=== PATIENT | male | born 1965 | race Caucasian/White ===

== ENCOUNTER 2022-10-24 11:04 | Outpatient (OUT) | payer BC, SELFPAY ==
[2022-10-24 12:09] LABS: Basophils Percent Auto 0.2 % (0.2-2.0); Eosinophils Absolute Auto 0.1 10^3/uL (0.0-0.7); Eosinophils Percent Auto 1.6 % (0.9-7.0); Hematocrit 43.5 % (42.0-54.0); Hemoglobin 14.6 g/dL (14.0-18.0); Immature Granulocytes Abs Auto 0.01 10^3/uL (0.00-0.03); Immature Granulocytes Pct Auto 0.2 % (0.0-0.5); Lymphocytes Absolute Auto 1.1 10^3/uL (1.2-3.8); Lymphocytes Percent Auto 18.2 % (20.5-60.0); Mean Corpuscular HGB Conc 33.6 g/dL (29.9-35.2); Mean Corpuscular Hemoglobin 26.9 pg (25.9-34.0); Mean Corpuscular Volume 80.1 fL (80.0-94.0); Mean Platelet Volume 11.4 fL (9.5-13.5); Monocytes Absolute Auto 0.4 10^3/uL (0.3-0.8); Monocytes Percent Auto 7.1 % (1.7-12.0); Neutrophils Absolute Auto 4.4 10^3/uL (1.4-6.5); Neutrophils Percent Auto 72.7 % (43.0-75.0); Platelet Count 139 10^3/uL (150-450); Red Blood Count 5.43 10^6/uL (4.70-6.10); Red Cell Distribution Width 13.5 % (11.0-15.0); White Blood Count 6.1 10^3/uL (4.0-11.0)
[2022-10-24 12:20] LABS: Alanine Aminotransferase 30 U/L (16-63); Albumin Globulin Ratio 0.9; Albumin Level 3.5 g/dL (3.4-5.0); Alkaline Phosphatase 98 U/L (46-116); Anion Gap 12.8; Aspartate Amino Transferase 28 U/L (15-37); BUN Creatinine Ratio 18.4; Bilirubin Total 0.4 mg/dL (0.2-1.0); Calcium 9.3 mg/dL (8.5-10.1); Carbon Dioxide 26.8 mmol/L (21.0-32.0); Chloride 105 mmol/L (98-107); Chol HDL Ratio 8.1; Cholesterol 243 mg/dL (<=200); Estimated GFR (African America >60 (>=60); Estimated GFR (Non-African Ame 59 (>=60); Glucose 254 mg/dL (74-106); HDL Cholesterol 30 mg/dL (40-60); Potassium 4.6 mmol/L (3.5-5.1); Sodium 140 mmol/L (136-145); Total Protein 7.5 g/dL (6.4-8.2); Triglycerides 204 mg/dL (<=150); VLDL CHOLESTEROL 40.8 mg/dL
== END 2022-10-24 11:05 | disposition home or self-care (01) ==
PROVIDERS: PCP Family Medicine; Visit Provider Nurse Practitioner
DX: I50.22 Chronic systolic (congestive) heart failure (principal)
CPT/HCPCS: 36415; 80053; 80061; 85025

== ENCOUNTER 2022-11-07 08:47 | Outpatient (OUT) | payer BC, SELFPAY ==
--- NOTE | 2022-11-07 11:03 | CA_ITS ---
Patient: LEIDA HOU Exam Date: 11/07/2022 : 1965 Gender:M Ordering : PERLA KABA Admission #: [id number] Family : Order #: [id number] CLICK HERE TO VIEW EXAM ECHOCARDIOGRAM REPORT PROCEDURE: CA ECHO DOPPLER COMPLETE INDICATIONS: Chronic systolic heart failure, CAD COMPARISON: None. DESCRIPTION: COMPLETE ECHOCARDIOGRAM Real-time transthoracic echocardiography with 2D, M-mode, spectral and color flow Doppler performed. QUALITY: Technical quality was good. LEFT VENTRICLE: Mild dilatation. Mild concentric left ventricular hypertrophy. Global left ventricular systolic function is moderately to severely reduced. There is global hypokinesis with regional variability and severe hypokinesis of the septum and mid and distal anterior segments. LV EF: Visual estimation of left ventricular ejection fraction is 30% DIASTOLIC: ATRIAL SEPTUM: LEFT ATRIUM: Moderate dilatation. RIGHT ATRIUM: Mild dilatation. RIGHT VENTRICLE: Normal in size. Normal right ventricular systolic function. Pacer wire present TRICUSPID VALVE: Normal mobility and thickness. No stenosis with trivial regurgitation. No evidence of pulmonary hypertension. RVSP 33 mmHg MITRAL VALVE: Normal mobility and thickness. Mild mitral valve stenosis. No mitral regurgitation. Mitral valve ring repair is well seated in the mitral position. Mean diastolic gradient is 4.7 mmHg at a heart rate of 77 bpm. AORTIC VALVE: Normal trileaflet appearance. No visible sclerosis. Normal leaflet mobility. No evidence of aortic valve stenosis. No aortic regurgitation. AORTIC ROOT: Mildly dilated, measuring 4.1cm. The ascending aorta is normal in size measuring 2.9 cm. PULMONIC VALVE: Normal thickness and mobility. No stenosis. Trivial regurgitation. PERICARDIUM: No evidence of pericardial effusion. IVC: Collapses with inspirations. Normal size. PLEURA: CONCLUSION: 1. Left ventricular systolic function is moderately to severely reduced with segmental wall motion abnormalities. LVEF is estimated at 30%. 2. Normal right ventricular size and systolic function. 3. Mitral valve is status post ring repair with no regurgitation and mild stenosis. 4. Normal right-sided pressures. 5. Mildly dilated aortic root measuring 4.1 cm. Adult Echocardiography Procedure Report Left Ventricle LVEDD (3.7 - 5.6 cm): 6.33 cm LVESD (2.2 - 4.0 cm): 5.08 cm LVIVS thickness (0.6 - 1.2 cm): 1.20 cm LVPW thickness (0.5 - 1.0 cm): 1.22 cm e': 0.07 m/s E - e': 17.82 LVOT Max Gradient: 2.81 mm[Hg] LVOT Area (cm2): 0.84 m/s Peak Velocity (LVOT): 0.84 m/s Mean Velocity (LVOT): 0.53 m/s LVOT Diameter 2.39 cm Left Ventricular Ejection Fraction: 30 % Left Atrium LA Volume Index (2D A2C): 48.56 ml/m2 Left Atrium Systolic Dimension: 4.37 cm Mitral Valve MV E to A Ratio: 0.97 Mitral Valve A-Wave Peak Velocity: 1.36 m/s Mitral Valve E-Wave Peak Velocity: 1.32 m/s Right Ventricle RV Internal Diastolic Dimension: 4.05 cm Aorta AO Root Diam: 4.11 cm Ascending Ao Diam: 2.91 cm Aortic Valve AoV Area (Peak Martín): 3.44 cm2, 3.44 cm2 AoV Area (VTI): 3.31 cm2, 3.31 cm2 Peak Velocity(Antegrade Flow): 1.09 m/s Peak Gradient(Antegrade Flow): 4.74 mm[Hg] Mean Velocity(Antegrade Flow): 0.78 m/s Mean Gradient(Antegrade Flow): 2.76 mm[Hg] Velocity Time Integral: 26.03 cm Tricuspid Valve Peak Velocity (Regurgitant Flow): 2.72 m/s, 2.15 m/s Pulmonic Valve Mean Gradient: 2.04 mm[Hg], 1.87 mm[Hg], 2.56 mm[Hg] Mean Velocity: 0.66 m/s, 0.64 m/s, 0.75 m/s Peak Velocity: 0.98 m/s Peak Gradient: 3.88 mm[Hg], 3.50 mm[Hg], 4.20 mm[Hg] Right Atrium Right Atrium Systolic Pressure: 68.94 ml, 68.94 ml Dictated by: Sheldon Fleming M.D. on 11/07/2022 at 18:05 Approved by: Sheldon Fleming M.D. on 11/07/2022 at 18:12
== END 2022-11-07 08:48 | disposition home or self-care (01) ==
LOC: CARD 08:48
PROVIDERS: PCP Family Medicine; Visit Provider Nurse Practitioner
DX: I50.22 Chronic systolic (congestive) heart failure (principal); I25.810 Atherosclerosis of coronary artery bypass graft(s) without angina pectoris
CPT/HCPCS: 93306

== ENCOUNTER 2023-11-25 07:00 | Outpatient (OUT) | payer BC, SELFPAY ==
[2023-11-25 07:44] LABS: Anion Gap 12.3; BUN Creatinine Ratio 17.2; Calcium 9.5 mg/dL (8.5-10.1); Carbon Dioxide 26.2 mmol/L (21.0-32.0); Chloride 102 mmol/L (98-107); Chol HDL Ratio 5.3; Cholesterol 181 mg/dL (<=200); Estimated GFR (African America >60 (>=60 mL/min/1.73m^2); Estimated GFR (Non-African Ame 54 (>=60 mL/min/1.73m^2); Glucose 380 mg/dL (74-106); HDL Cholesterol 34 mg/dL (40-60); Potassium 4.5 mmol/L (3.5-5.1); Sodium 136 mmol/L (136-145); Triglycerides 299 mg/dL (<=150); VLDL CHOLESTEROL 59.8 mg/dL
== END 2023-11-25 07:01 | disposition home or self-care (01) ==
LOC: LAB 07:02
PROVIDERS: PCP Family Medicine; Visit Provider Nurse Practitioner Family
DX: I50.22 Chronic systolic (congestive) heart failure (principal); E78.2 Mixed hyperlipidemia
CPT/HCPCS: 36415; 80048; 80061

== ENCOUNTER 2023-12-30 13:01 | Outpatient (OUT) | payer BC, SELFPAY ==
--- NOTE | 2023-12-30 | VEIN_ITS ---
The [address] [address] Patient Name: LEIDA HOU MRN: [id number] date: 1965 Sex: M Assigned Patient Location: Current Patient Location: Accession/Order Number: [id number] Exam Date: 12/30/2023 13:05 Report Date: 12/31/2023 07:02 At the request of: MARY GRACE ROSADO Procedure: VC SEGMENTAL PRESSURES EXAM: VC SEGMENTAL PRESSURES. HISTORY: PAD I73.9. COMPARISON: None. TECHNIQUE: Resting ABIs and segmental limb pressures were obtained. FINDINGS: Resting ABIs are abnormally elevated due to vascular rigidity. Waveforms appear monophasic bilaterally. A pressure gradient was noted from the brachial cuff to the upper thigh cuff and from the upper thigh cuff to the lower thigh cuff on the left. This may represent iliac disease and superficial femoral artery disease. Pressure gradient was seen on the right from the upper thigh cuff to the brachial cuff suggesting iliac disease. Recommend CTA for further evaluation. VEIN/VC SEGMENTAL PRESSURES IMPRESSION: Nondiagnostic ABIs and segmental pressures. Recommend CTA. Possible iliac disease bilaterally and left superficial femoral artery disease. Electronically authenticated by: Chester CHRISTENSEN Date: 12/31/2023 07:02
== END 2023-12-30 13:02 | disposition home or self-care (01) ==
LOC: VC 13:01
PROVIDERS: PCP Family Medicine; Visit Provider Podiatrist Foot & Ankle Surgery
DX: E11.51 Type 2 diabetes mellitus with diabetic peripheral angiopathy without gangrene (principal)
CPT/HCPCS: 93923

== ENCOUNTER 2023-12-30 13:58 | Outpatient (OUT) | payer BC, SELFPAY ==
--- NOTE | 2023-12-30 14:10 | CT_ITS ---
The [address] [address] Patient Name: LEIDA HOU MRN: [id number] date: 1965 Sex: M Assigned Patient Location: [facility] Current Patient Location: [facility] Accession/Order Number: [id number] Exam Date: 12/30/2023 14:19 Report Date: 01/02/2024 08:47 At the request of: MARY GRACE ROSADO Procedure: CT foot LT wo con CT scan left foot and ankle without contrast 12/30/2023. HISTORY: The patient reportedly has a history of diabetes and cut the left great toe 2 weeks ago. Infection of the left great toe. COMPARISON: None. TECHNIQUE: Multiple contiguous axial CT images of the left foot and ankle were obtained without contrast. Sagittal and coronal reformatted images were made. Dose reduction techniques were achieved by using automated exposure control and/or adjustment of mA and/or kV according to patient size and/or use of iterative reconstruction technique. FINDINGS: There are extensive atherosclerotic vascular calcifications seen. There are calcaneal enthesophytes. There is a type II accessory navicular bone. There are mild degenerative changes of the talonavicular joint. There is an enthesophyte of the base of the fifth metatarsal. There is a hallux valgus deformity. There are mild degenerative changes of the first MTP joint. There appears to be a small soft tissue ulcer along the plantar aspect of the distal first toe with adjacent soft tissue swelling. There are also multiple small bubbles of gas within the underlying subcutaneous fat plantar to the first distal phalanx in this region. However, no erosive change of the first toe is seen. No periosteal reaction. CT/CT foot LT wo con IMPRESSION: 1. There appears to be a small soft tissue ulcer along the plantar aspect of the distal first toe with adjacent soft tissue swelling which may be due to a cellulitis, but this is nonspecific. There are also multiple small bubbles of gas within the underlying subcutaneous fat in this region which may be due to an infection by a gas-forming organism. 2. No CT evidence of osteomyelitis is seen of the first toe. However, please note that MRI is more sensitive for the detection of osteomyelitis than CT. 3. There are other degenerative changes as described above. 4. Atherosclerotic vascular disease. Electronically authenticated by: DONTA BUCKLEY Date: 01/02/2024 08:47
== END 2023-12-30 13:59 | disposition home or self-care (01) ==
LOC: RAD 14:01
PROVIDERS: PCP Family Medicine; Visit Provider Podiatrist Foot & Ankle Surgery
DX: E11.51 Type 2 diabetes mellitus with diabetic peripheral angiopathy without gangrene (principal); E11.69 Type 2 diabetes mellitus with other specified complication; E11.49 Type 2 diabetes mellitus with other diabetic neurological complication; M86.172 Other acute osteomyelitis, left ankle and foot
CPT/HCPCS: 73700; 93923

== ENCOUNTER 2024-10-31 11:57 | Outpatient (OUT) | payer BC, SELFPAY ==
--- OUTSIDE RECORDS SUMMARY | 2024-10-31 11:59 | XMS_ITS | Encounter Summary ---
Author Organization [facility] Address [address] [place] [facility] [place] [address] Care Team Providers Care Signal Intelligence Analyst Name Role Phone Gladis Gibson MD Primary Care Provider [phone] Gladis Gibson MD Unavailable Encounter Details Date Type Department Care Team (Late st Contact Info) Description 02/15/2024 Abstract [facility] [address] [place] [id number] Yonatan Arshad, DPM FACFAS [address] [place] [address] Social History Tobacco Use Types Packs/Day Years Used Date Smoking Tobacco: Never Smokeless Tobacco: Current Chew Alcohol Use Standard Drinks/Week Comments Not Currently 0 (1 standard drink = 0.6 oz pur e alcohol) Sex and Gender Information Value Date Recorded Sex Assigned at Not on file Legal Sex Male 7:30 PM EDT Gender Identity Not on file Sexual Orientation Not on file documented as of this encounter Plan of Treatment Not on file documented as of this encounter Visit Diagnoses Not on filedocumented in this encounter Care Teams Signal Intelligence Analyst Relationship Specialty Start Date End Date Gladis Gibson MD [address] [facility] [address] [place], [place] [id number] PCP - General Family Medicine 09/22/22 Gladis Gibson MD [address] [facility] [address] [place], [place] [id number] PCP - [place] 06/23/24 documented as of this encounter
--- OUTSIDE RECORDS SUMMARY | 2024-10-31 11:59 | XMS_ITS | Encounter Summary ---
Author Organization [facility] Address [address] [place] [address] Care Team Providers Care Transport Pilot Name Role Phone Gladis Phoenix MD Unavailable Gladis Phoenix MD Primary Care Provider [phone] Gladis Phoenix MD Unavailable Encounter Details Date Type Department Care Team (Late st Contact Info) Description 12/31/2023 Clinisync Result Encounter [facility] External Department Unsolicited Provider, Generic External Data Social History Tobacco Use Types Packs/Day Years [...] on file documented as of this encounter Procedures Procedure Name Priority Date/Time Associated Diagnosis Comments SEGMENTAL BLOOD PRESSURE 12/31/2023 7:02 AM EST documented in this encounter Results * SEGMENTAL BLOOD PRESSURE (12/31/2023 7:02 AM EST) Anatomical Region Laterality Modality Radiographic Allison ging 12/31/2023 7:02 AM EST Narrative 12/31/2023 7:04 AM EST The [address] [address] Vein Report Signed Patient: LEIDA CERRATO MR#: [id number] : 1965 Acct:[id number] Age/Sex: 58 / M ADM Date: 12/30/23 Loc: VC Attending Dr: MARY GRACE ROSADO M.D. Ordering Physician: MARY GRACE ROSADO M.D. Date of Service: 12/30/23 Procedure(s): VC SEGMENTAL PRESSURES Accession Number(s): [id number] cc: GLADIS PHOENIX ; MARY GRACE ROSADO M.D. The [place] [id number] Patient Name: LEIDA CERRATO MRN: [facility]:[id number] date: 1965 Sex: M Assigned Patient Location: Current Patient Location: Accession/Order Number: [id number] Exam Date: 12/30/2023 13:05 Report Date: 12/31/2023 07:02 At the request of: MARY GRACE ROSADO Procedure: VC SEGMENTAL PRESSURES EXAM: VC SEGMENTAL PRESSURES. HISTORY: PAD I73.9. COMPARISON: None. TECHNIQUE: Resting ABIs and segmental limb pressures were obtained. FINDINGS: Resting ABIs are abnormally elevated due to vascular rigidity. Waveforms appear monophasic bilaterally. A pressure gradient was noted from the brachial cuff to the upper thigh cuff and from the upper thigh cuff to the lower thigh cuff on the left. This may represent iliac disease and superficial femoral artery disease. Pressure gradient was seen on the right from the upper thigh cuff to the brachial cuff suggesting iliac disease. Recommend CTA for further evaluation. VEIN/VC SEGMENTAL PRESSURES IMPRESSION: Nondiagnostic ABIs and segmental pressures. Recommend CTA. Possible iliac disease bilaterally and left superficial femoral artery disease. Electronically authenticated by: Chester LINO Date: 12/31/2023 07:02 Dictated By: Chester Lino M.D. Signed By: 12/31/23703 DD/ 1 TD/TT: Finish Mill Operator: Procedure Note Radiology, Radiologist, MD - 12/31/2023 [place] [address] Vein Report Signed Patient: LEIDA CERRATO RMR#: [id number] : 1965Acct:[id number] Age/Sex: 58 / MADM Date: 12/30/23 Loc: VC Attending Dr: MARY GRACE ROSADO M.D. Ordering Physician: MARY GRACE ROSADO M.D. Date of Service: 12/30/23 Procedure(s): VC SEGMENTAL PRESSURES Accession Number(s): [id number] cc: GLADIS PHOENIX ; MARY GRACE ROSADO M.D. [place] [address] Patient Name: LEIDA CERRATO MRN: [id number] date: 1965 Sex: M Assigned Patient Location: Current Patient Location: Accession/Order Number: [id number] Exam Date: 12/30/2023 13:05 Report Date: 12/31/2023 07:02 At the request of: MARY GRACE ROSADO Procedure: VC SEGMENTAL PRESSURES EXAM: VC SEGMENTAL PRESSURES. HISTORY: PAD I73.9. COMPARISON: None. TECHNIQUE: Resting ABIs and segmental limb pressures were obtained. FINDINGS: Resting ABIs are abnormally elevated due to vascular rigidity. Waveforms appear monophasic bilaterally. A pressure gradient was notedfrom the brachial cuff to the upper thigh cuff and from the upper thigh cuff to the lower thigh cuff on the left. This may represent iliac disease andsuperficial femoral artery disease. Pressure gradient was seen on the right from theupper thigh cuff to the brachial cuff suggesting iliac disease. Recommend CTAfor further evaluation. VEIN/VC SEGMENTAL PRESSURES IMPRESSION: Nondiagnostic ABIs and segmental pressures. Recommend CTA. Possible iliac disease bilaterally and left superficial femoral artery disease. Electronically authenticated by: Chester LINO Date: 12/31/2023 07:02 Dictated By: Chester Lino M.D. Signed By:12/31/23703 DD/ 1 TD/TT: Finish Mill Operator: us Generic External Data Provider IMG XR PROCEDURES Final Result documented in this encounter Visit Diagnoses Not on filedocumented in this encounter Care Teams Transport Pilot Relationship Specialty Start Date End Date Gladis Phoenix MD [address] [place] [address] PCP - [place] [employer] 06/23/2101/22 Gladis Phoenix MD [address] [facility] [address] [place] [address] PCP - General Family Medicine 09/22/22 Gladis Phoenix MD [address] [facility] [address] [place] [address] PCP - [place] [employer] 06/23/24 documented as of this encounter
--- OUTSIDE RECORDS SUMMARY | 2024-10-31 11:59 | XMS_ITS | Encounter Summary ---
Author Organization [facility] Address [address] [facility] [place] [address] Care Team Providers Care Yard Loader Operator Name Role Phone Gladis Gibson MD Primary Care Provider [phone] Gladis Gibson MD Unavailable Encounter Details Date Type Department Care Team (Late st Contact Info) Description 01/27/2024 Abstract [facility] [address] [facility] [address] [place] [phone] Gladis Gibson MD [address] [facility] [address] [place] [address] Social History Tobacco Use Types Packs/Day Years [...] on filedocumented in this encounter Care Teams Yard Loader Operator Relationship Specialty Start Date End Date Gladis Gibson MD [address] [facility] [address] [place] [address] PCP - General Family Medicine 09/22/22 Gladis Gibson MD [address] [facility] [address] [place] [address] PCP - [place] [employer] 06/23/24 documented as of this encounter
--- OUTSIDE RECORDS SUMMARY | 2024-10-31 11:59 | XMS_ITS | Encounter Summary ---
Author Organization [facility] Address [address] [facility] [place] [address] Care Team Providers Care Senior Designer/Art Director Name Role Phone Gladis Gibson MD Primary Care Provider [phone] Gladis Gibson MD Unavailable Encounter Details Date Type Department Care Team (Late st Contact Info) Description 09/21/2024 Abstract [facility] [place] [facility] [address] [facility] [address] [place] [address] Gladis Gibson MD [address] [facility] [address] [place], [place] [phone] Social History Tobacco Use Types Packs/Day Years Used Date Smoking Tobacco: Never Smokeless Tobacco: Current Chew Alcohol Use Standard Drinks/Week Comments Not Currently 0 (1 standard drink = 0.6 oz pur e alcohol) PHQ-2 Answer Date Recorded Patient Health Questionnaire-2 Score 0 05/16/2024 Sex and Gender Information Value Date Recorded Sex Assigned at Not on file Legal Sex Male 7:30 PM EDT Gender Identity Not on file Sexual Orientation Not on file documented as of this encounter Plan of Treatment Not on file documented as of this encounter Visit Diagnoses Not on filedocumented in this encounter Care Teams Senior Designer/Art Director Relationship Specialty Start Date End Date Gladis Gibson MD [address] [facility] [address] [place] [address] PCP - General Family Medicine 09/22/22 Gladis Gibson MD [address] [facility] [address] [place] [address] PCP - [place] [employer] 06/23/24 documented as of this encounter
--- OUTSIDE RECORDS SUMMARY | 2024-10-31 11:59 | XMS_ITS | Encounter Summary ---
Author Organization [facility] Address [address] [place] [address] Care Team Providers Care Delivery Specialist Name Role Phone Gladis Gibson MD Unavailable Gladis Gibson MD Primary Care Provider [phone] Gladis Gibson MD Unavailable Encounter Details Date Type Department Care Team (Late st Contact Info) Description 11/07/2022 Clinisync Result Encounter [facility] External Department Unsolicited [...] Procedure Name Priority Date/Time Associated Diagnosis Comments CA ECHO DOPPLER COMPLETE 11/07/2022 6:12 PM EDT documented in this encounter Results * CA ECHO DOPPLER COMPLETE (11/07/2022 6:12 PM EDT) Anatomical Region Laterality Modality Other 11/07/2022 6:12 PM EDT Narrative 11/07/2022 6:12 PM EDT The [address] [address] Cardiology Report Signed Patient: LEIDA CERRATO MR#: [id number] : 1965 Acct:[id number] Age/Sex: 57 / M ADM Date: 11/07/22 Loc: CARD Attending Dr: PERLA KABA Ordering Physician: PERLA KABA Date of Service: 11/07/22 Procedure(s): CA echo doppler complete Accession Number(s): [id number] cc: Patient: LEIDA CERRATO Exam Date: 11/07/2022 : 1965 Gender:M Ordering : PERLA KABA Admission #: [id number] Family : Order #: [id number] CLICK HERE TO VIEW EXAM ECHOCARDIOGRAM REPORT PROCEDURE: CA ECHO DOPPLER COMPLETE INDICATIONS: Chronic systolic heart failure, CAD COMPARISON: None. DESCRIPTION: COMPLETE ECHOCARDIOGRAM Real-time transthoracic echocardiography with 2D, M-mode, spectral and color flow Doppler performed. QUALITY: Technical quality was good. LEFT VENTRICLE: Mild dilatation. Mild concentric left ventricular hypertrophy. Global left ventricular systolic function is moderately to severely reduced. There is global hypokinesis with regional variability and severe hypokinesis of the septum and mid and distal anterior segments. LV EF: Visual estimation of left ventricular ejection fraction is 30% DIASTOLIC: ATRIAL SEPTUM: LEFT ATRIUM: Moderate dilatation. RIGHT ATRIUM: Mild dilatation. RIGHT VENTRICLE: Normal in size. Normal right ventricular systolic function. Pacer wire present TRICUSPID VALVE: Normal mobility and thickness. No stenosis with trivial regurgitation. No evidence of pulmonary hypertension. RVSP 33 mmHg MITRAL VALVE: Normal mobility and thickness. Mild mitral valve stenosis. No mitral regurgitation. Mitral valve ring repair is well seated in the mitral position. Mean diastolic gradient is 4.7 mmHg at a heart rate of 77 bpm. AORTIC VALVE: Normal trileaflet appearance. No visible sclerosis. Normal leaflet mobility. No evidence of aortic valve stenosis. No aortic regurgitation. AORTIC ROOT: Mildly dilated, measuring 4.1cm. The ascending aorta is normal in size measuring 2.9 cm. PULMONIC VALVE: Normal thickness and mobility. No stenosis. Trivial regurgitation. PERICARDIUM: No evidence of pericardial effusion. IVC: Collapses with inspirations. Normal size. PLEURA: CONCLUSION: 1. Left ventricular systolic function is moderately to severely reduced with segmental wall motion abnormalities. LVEF is estimated at 30%. 2. Normal right ventricular size and systolic function. 3. Mitral valve is status post ring repair with no regurgitation and mild stenosis. 4. Normal right-sided pressures. 5. Mildly dilated aortic root measuring 4.1 cm. Adult Echocardiography Procedure Report Left Ventricle LVEDD (3.7 - 5.6 cm): 6.33 cm LVESD (2.2 - 4.0 cm): 5.08 cm LVIVS thickness (0.6 - 1.2 cm): 1.20 cm LVPW thickness (0.5 - 1.0 cm): 1.22 cm e': 0.07 m/s E - e': 17.82 LVOT Max Gradient: 2.81 mm[Hg] LVOT Area (cm2): 0.84 m/s Peak Velocity (LVOT): 0.84 m/s Mean Velocity (LVOT): 0.53 m/s LVOT Diameter 2.39 cm Left Ventricular Ejection Fraction: 30 % Left Atrium LA Volume Index (2D A2C): 48.56 ml/m2 Left Atrium Systolic Dimension: 4.37 cm Mitral Valve MV E to A Ratio: 0.97 Mitral Valve A-Wave Peak Velocity: 1.36 m/s Mitral Valve E-Wave Peak Velocity: 1.32 m/s Right Ventricle RV Internal Diastolic Dimension: 4.05 cm Aorta AO Root Diam: 4.11 cm Ascending Ao Diam: 2.91 cm Aortic Valve AoV Area (Peak Martín): 3.44 cm2, 3.44 cm2 AoV Area (VTI): 3.31 cm2, 3.31 cm2 Peak Velocity(Antegrade Flow): 1.09 m/s Peak Gradient(Antegrade Flow): 4.74 mm[Hg] Mean Velocity(Antegrade Flow): 0.78 m/s Mean Gradient(Antegrade Flow): 2.76 mm[Hg] Velocity Time Integral: 26.03 cm Tricuspid Valve Peak Velocity (Regurgitant Flow): 2.72 m/s, 2.15 m/s Pulmonic Valve Mean Gradient: 2.04 mm[Hg], 1.87 mm[Hg], 2.56 mm[Hg] Mean Velocity: 0.66 m/s, 0.64 m/s, 0.75 m/s Peak Velocity: 0.98 m/s Peak Gradient: 3.88 mm[Hg], 3.50 mm[Hg], 4.20 mm[Hg] Right Atrium Right Atrium Systolic Pressure: 68.94 ml, 68.94 ml Dictated by: Ashia Fleming M.D. on 11/07/2022 at 18:05 Approved by: Ashia Fleming M.D. on 11/07/2022 at 18:12 Dictated By: ASHIA FLEMING Signed By: 11/07/221811 DD/ 11 TD/TT: Sanforizing Machine Operator: Procedure Note Radiology, Radiologist, MD - 11/13/2022 [place] [address] Cardiology Report Signed Patient: LEIDA CERRATO RMR#: [id number] : 1965Acct:[id number] Age/Sex: 57 / MADM Date: 11/07/22 Loc: CARD Attending Dr: PERLA KABA Ordering Physician: PERLA KABA Date of Service: 11/07/22 Procedure(s): CA echo doppler complete Accession Number(s): [id number] cc: Patient: LEIDA CERRATO Exam Date: 11/07/2022 : 1965 Gender:M Ordering : PERLA KABA Admission #: [id number] Family : Order #: [id number] CLICK HERE TO VIEW EXAM ECHOCARDIOGRAM REPORT PROCEDURE: CA ECHO DOPPLER COMPLETE INDICATIONS: Chronic systolic heart failure, CAD COMPARISON: None. DESCRIPTION: COMPLETE ECHOCARDIOGRAM Real-time transthoracic echocardiography with 2D, M-mode, spectral and color flow Dopplerperformed. QUALITY: Technical quality was good. LEFT VENTRICLE: Mild dilatation. Mild concentric left ventricular hypertrophy. Global left ventricular systolic function is moderately to severely reduced. There is global hypokinesis with regional variabilityand severe hypokinesis of the septum and mid and distal anterior segments. LV EF: Visual estimation of left ventricular ejection fraction is 30% DIASTOLIC: ATRIAL SEPTUM: LEFT ATRIUM: Moderate dilatation. RIGHT ATRIUM: Mild dilatation. RIGHT VENTRICLE: Normal in size. Normal right ventricular systolic function. Pacer wire present TRICUSPID VALVE: Normal mobility and thickness. No stenosis with trivial regurgitation. No evidence of pulmonary hypertension. RVSP 33 mmHg MITRAL VALVE: Normal mobility and thickness. Mild mitral valvestenosis. No mitral regurgitation. Mitral valve ring repair is well seated in the mitral position. Mean diastolic gradient is 4.7 mmHg at a heart rate of77 bpm. AORTIC VALVE: Normal trileaflet appearance. No visible sclerosis.Normal leaflet mobility. No evidence of aortic valve stenosis. No aortic regurgitation. AORTIC ROOT: Mildly dilated, measuring 4.1cm. The ascending aorta is normal in size measuring 2.9 cm. PULMONIC VALVE: Normal thickness and mobility. No stenosis. Trivial regurgitation. PERICARDIUM: No evidence of pericardial effusion. IVC: Collapses with inspirations. Normal size. PLEURA: CONCLUSION: 1. Left ventricular systolic function is moderately to severely reducedwith segmental wall motion abnormalities. LVEF is estimated at 30%. 2. Normal right ventricular size and systolic function. 3. Mitral valve is status post ring repair with no regurgitation and mild stenosis. 4. Normal right-sided pressures. 5. Mildly dilated aortic root measuring 4.1 cm. Adult Echocardiography Procedure Report Left Ventricle LVEDD (3.7 - 5.6 cm): 6.33 cm LVESD (2.2 - 4.0 cm): 5.08 cm LVIVS thickness (0.6 - 1.2 cm): 1.20 cm LVPW thickness (0.5 - 1.0 cm): 1.22 cm e': 0.07 m/s E - e': 17.82 LVOT Max Gradient: 2.81 mm[Hg] LVOT Area (cm2): 0.84 m/s Peak Velocity (LVOT): 0.84 m/s Mean Velocity (LVOT): 0.53 m/s LVOT Diameter 2.39 cm Left Ventricular Ejection Fraction: 30 % Left Atrium LA Volume Index (2D A2C): 48.56 ml/m2 Left Atrium Systolic Dimension: 4.37 cm Mitral Valve MV E to A Ratio: 0.97 Mitral Valve A-Wave Peak Velocity: 1.36 m/s Mitral Valve E-Wave Peak Velocity: 1.32 m/s Right Ventricle RV Internal Diastolic Dimension: 4.05 cm Aorta AO Root Diam: 4.11 cm Ascending Ao Diam: 2.91 cm Aortic Valve AoV Area (Peak Martín): 3.44 cm2, 3.44 cm2 AoV Area (VTI): 3.31 cm2, 3.31 cm2 Peak Velocity(Antegrade Flow): 1.09 m/s Peak Gradient(Antegrade Flow): 4.74 mm[Hg] Mean Velocity(Antegrade Flow): 0.78 m/s Mean Gradient(Antegrade Flow): 2.76 mm[Hg] Velocity Time Integral: 26.03 cm Tricuspid Valve Peak Velocity (Regurgitant Flow): 2.72 m/s, 2.15 m/s Pulmonic Valve Mean Gradient: 2.04 mm[Hg], 1.87 mm[Hg], 2.56 mm[Hg] Mean Velocity: 0.66 m/s, 0.64 m/s, 0.75 m/s Peak Velocity: 0.98 m/s Peak Gradient: 3.88 mm[Hg], 3.50 mm[Hg], 4.20 mm[Hg] Right Atrium Right Atrium Systolic Pressure: 68.94 ml, 68.94 ml Dictated by: Ashia Fleming M.D. on 11/07/2022 at 18:05 Approved by: Ashia Fleming M.D. on 11/07/2022 at 18:12 Dictated By: ASHIA FLEMING Signed By:11/07/221811 DD/ 11 TD/TT: Sanforizing Machine Operator: Generic External Data Provider [facility] Final Result documented in this encounter Visit Diagnoses Not on filedocumented in this encounter Care Teams Delivery Specialist Relationship Specialty Start Date End Date Gladis Gibson MD [address] [place] [address] [place] [address] PCP - [facility] [employer] 06/23/2101/22 Gladis Gibson MD [address] [facility] [address] [place] [address] PCP - General Family Medicine 09/22/22 Gladis Gibson MD [address] [facility] [address] [place] [address] PCP - [facility] [employer] 06/23/24 documented as of this encounter
--- OUTSIDE RECORDS SUMMARY | 2024-10-31 11:59 | XMS_ITS | Encounter Summary ---
Author Organization [facility] Address [address] [facility] [place] [address] Care Team Providers Care Process Manager Name Role Phone Gladis Gibson MD Primary Care Provider [phone] Gladis Gibson MD Unavailable Encounter Details Date Type Department Care Team (Late st Contact Info) Description 09/21/2024 Abstract [facility] [place] [facility] [address] [facility] 110 [place] [address] Gladis Gibson MD [address] [facility] 110 [place], [place] [id number] Social History Tobacco Use Types Packs/Day Years [...] on filedocumented in this encounter Care Teams Process Manager Relationship Specialty Start Date End Date Gladis Gibson MD [address] [facility] 110 [place] [address] PCP - General Family Medicine 09/22/22 Gladis Gibson MD 112 [facility] 110 [place] [address] PCP - [place] [employer] 06/23/24 documented as of this encounter
--- OUTSIDE RECORDS SUMMARY | 2024-10-31 11:59 | XMS_ITS | Clinical Summary ---
Author Organization [facility] Address [address] [place], [place] [address] Care Team Providers Care Hvac Services Professional Name Role Phone Gladis Gibson MD Primary Care Provider [phone] Allergies Active Allergy Reactions Criticality Noted Date Comments Codeine Other: See Comments 03/17/2017 Pt. States causes nausea Medications carvedilol (COREG) 25 mg tabletIndicatio ns:SBO (small bowel obstruction) (HCC),Diverticu losis of large intestine without hemorrhage,Preo perative examination Take 25 mg by mouth twice daily with meals. Active lisinopril (ZESTRIL, PRINIVIL) 10 mg tabletIndicatio ns:SBO (small bowel obstruction) (HCC),Diverticu losis of large intestine without hemorrhage,Preo perative examination Take 10 mg by mouth once daily. Active rosuvastatin (CRESTOR) 20 mg tabletIndicatio ns:SBO (small bowel obstruction) (HCC),Diverticu losis of large intestine without hemorrhage,Preo perative examination Take 20 mg by mouth once daily. Active omeprazole (PRILOSEC) 20 mg capsuleIndicati ons:SBO (small bowel obstruction) (HCC),Diverticu losis of large intestine without hemorrhage,Preo perative examination Take 20 mg by mouth once daily. Active docusate sodium (STOOL SOFTENER) 100 mg capsuleIndicati ons:SBO (small bowel obstruction) (HCC),Diverticu losis of large intestine without hemorrhage,Preo perative examination Take 100 mg by mouth twice daily. Active aspirin, enteric coated (ASPIRIN, ENTERIC COATED) 81 mg EC tabletIndicatio ns:SBO (small bowel obstruction) (HCC),Diverticu losis of large intestine without hemorrhage,Preo perative examination Take 81 mg by mouth once daily. Active insulin glargine (LANTUS) 100 unit/mL injection Inject 42 Units subcutaneously every morning. Active acetaminophen (TYLENOL) 325 mg tablet Take 2 tablets by mouth every 6 hours as needed for Pain. 03/30/19 Active ibuprofen (MOTRIN) 600 mg tablet Take 1 tablet by mouth every 8 hours as needed for Pain. 03/30/19 18 Active Active Problems No known active problems Resolved Problems Problem Noted Date Diagnosed Date Resolved Date SBO (small bowel obstruction) 03/25/2017 03/30/2017 Small bowel obstruction 03/12/201706/2017 Overview (03/12/2017): Added automatically from request for surgery [id number] Social History Tobacco Use Types Packs/Day Years Used Date Smoking Tobacco: Former Smokeless Tobacco: Current Area Deprivation Index Answer Date Eliu rded National Score (1-100), lower number is lower ri sk Not on file 02/01/2020 State Score (1-10), lower number is lower risk N ot on file 02/01/2020 Data from: https://www.neighborhoodatlas.medicine.[facility].edu/. Last address used for calculation Not on file 02/01/2020 Sex and Gender Information Value Date Recorded Sex Assigned at Not on file Legal Sex Male 10:18 AM EST Gender Identity Not on file Sexual Orientation Not on file Last Filed Vital Signs Vital Sign Reading Time Taken Comments Blood Pressure 121/76 04/07/2017 1:48 PM EST Pulse 85 04/07/2017 1:48 PM EST Temperature 36.4 C (97.5 F) 04/07/2017 1:48 PM EST Respiratory Rate 18 03/30/2017 7:19 AM EST Oxygen Saturation 98% 03/30/2017 7:19 AM EST Inhaled Oxygen Concentration - - Weight 82.3 kg (181 lb 7 oz) 03/30/2017 5:23 AM EST Height 182.9 cm (6') 03/25/2017 11:00 PM EST Body Mass Index 24.61 03/25/2017 11:00 PM EST Plan of Treatment Health Maintenance Due Date Last Done Comments Anxiety Screening 09/06/1981 Depression Screening 09/06/1981 HIV Screening 09/06/1981 Hepatitis C Screening 09/06/1981 DTaP,Tdap,Td Vaccine (1 - Tdap) 09/06/1982 Lipid Screening 09/06/1998 CT Colonography 09/06/2008 Cologuard (FIT-DNA) 09/06/2008 Colonoscopy 09/06/2008 Colorectal Cancer Screening 09/06/2008 Fecal Occult Blood 09/06/2008 Prostate Cancer Screening Discussion 09/06/2008 Sigmoidoscopy 09/06/2008 Pneumococcal Vaccine: 50+ (1 of 1 - PCV) 09/06/2013 Shingrix Vaccine (1 of 2) 09/06/2013 Diabetes Screening 03/30/2020 03/30/2017, 0 03/29/2017, 03/28/2017, Additional history exists Influenza Vaccine (#1) 2024 RSV Vaccine (1 - 1-dose 75+ series) 09/06/2038 Procedures Procedure Name Priority Date/Time Associated Diagnosis Comments BASIC METABOLIC PANEL (EU,FV,HL,TYLER,MM,SP) ROCIO 03/30/2017 5:48 AM EST from Last 3 Months or Most Recently Relevant to Health Maintenance Results * (ABNORMAL) BASIC METABOLIC PANEL (AK,AV,EU,FV,HL,TYLER,MM,SP) (03/30/2017 5:48 AM EST) Glucose 110(H) 65 - 100 mg/dL 03/30/2017 6:43 AM EST [facility] BUN 13 10 - 25 mg/dL 03/30/2017 6:43 AM EST [facility] Creatinine 0.90 0.70 - 1.40 mg/dL 03/30/2017 6:43 AM EST [facility] Sodium 139 135 - 146 mmol/L 03/30/2017 6:43 AM EST [facility] Potassium 4.7 3.5 - 5.0 mmol/L 03/30/2017 6:43 AM EST [facility] Chloride 101 98 - 110 mmol/L 03/30/2017 6:43 AM EST [facility] CO2 27 23 - 32 mmol/L 03/30/2017 6:43 AM EST [facility] Anion Gap 11 9 - 18 mmol/L 03/30/2017 6:43 AM EST [facility] Calcium 8.7 8.5 - 10.5 mg/dL 03/30/2017 6:43 AM EST [facility] eGFR- >60 >60 03/30/2017 6:43 AM EST [facility] eGFR-All Other Races >60 >60 . 03/30/2017 6:43 AM EST [facility] Blood specimen (specimen) BLOOD SPECIMEN / Unknown 03/30/2017 5:48 AM EST 03/30/2017 5:51 AM EST Pelon Ortega MD [facility] Fin al Result [facility] [id number] [place] [id number] from Last 3 Months or Most Recently Relevant to Health Maintenance Insurance [employer] CARD PPO OOS Member Subscriber Plan / Payer (Ef fective 2012-Present) Name:LEIDA CERRATO Relation to Subscriber:Spouse Name:[id number] Date of :1957 (Home) Address: [address] [place] [address] Payer ID:[id number] (NAIC) Type:PPO Address: [address] [employer]PER[employer] PPO Care Teams Hvac Services Professional Relationship Specialty Start Date End Date Gladis Gibson MD [address] [facility] 110 [place] [address] PCP - General Family Medicine 03/12/17
--- OUTSIDE RECORDS SUMMARY | 2024-10-31 11:59 | XMS_ITS | Encounter Summary ---
Author Organization [facility] Address [address] [facility] [place] [address] Care Team Providers Care Industrial Roofer Name Role Phone Gladis Gibson MD Unavailable Gladis Gibson MD Primary Care Provider Gladis Gibson MD Unavailable Encounter Details Date Type Department Care Team (Late Contact Info) Description 12/23/2023 Abstract [facility] [place] [facility] [address] [facility] 110 [place] [address] Gladis Gibson MD [address] [facility] 110 [place], [place] [id number] Social History Tobacco Use Types Packs/Day Years [...] on filedocumented in this encounter Care Teams Industrial Roofer Relationship Specialty Start Date End Date Gladis Gibson MD [address] [facility] 110 [place], [place] [id number] PCP - [place] [employer] 06/23/2101/22 Gladis Gibson MD [address] [facility] 110 [place] [address] PCP - General Family Medicine 09/22/22 Gladis Gibson MD 112 [facility] 110 [place] [address] PCP - [place] [employer] 06/23/24 documented as of this encounter
--- OUTSIDE RECORDS SUMMARY | 2024-10-31 11:59 | XMS_ITS | Encounter Summary ---
Author Organization [facility] Address [address] [place] [address] Care Team Providers Care Train Control Technician Name Role Phone Gladis Gibson MD Primary Care Provider [phone] Gladis Gibson MD Unavailable Reason for Referral * Consultation (Routine) - Authorized Specialty Diagnoses / Procedures Referred By Contkira t Referred To Contact Orthopaedic Surgery Diagnoses Muscle spasm of back Acute pain of right shoulder Zenia Christina NP 112 [facility] 110 [place] [address] Phone: tel: fax: Jr. Sheldon Bonilla, DO [address] [place] [address] Phone: tel: fax: Referral ID Status Reason Start Date Expiration Date Visits Requested Visits Authorized [id number] Authorized Specialty Services Required 10/25/2024 04/23/2025 1 1 * Imaging (Routine) - Authorized Specialty Diagnoses / Procedures Referred By Contac t Referred To Contact Radiology Diagnoses Acute pain of right shoulder Procedures CT shoulder right wo IV contrast Zenia Christina NP [address] [place] [facility] 110 [place] [address] Phone: tel: fax: [facility] [address] [place] [address] Phone: tel: fax: Referral ID Status Reason Start Date Expiration Date V isits Requested Visits Authorized [id number] Authorized 10/25/2024 04/23/2025 1 1 Reason for Visit * Reason Onset Date Comments Med Refill 10/25/2024 Encounter Details Date Type Department Care Team (Late st Contact Info) Description 10/25/2024 Refill [facility] [place] [facility] [address] [facility] 110 [place] [address] Zenia Christina NP [address] [place] [facility] 110 [place] [address] Muscle spasm of back; Acute pain of right shoulder Social History Tobacco Use Types Packs/Day Years Used Date Smoking Tobacco: Never Smokeless Tobacco: Current Chew Alcohol Use Standard Drinks/Week Comments Not Currently 0 (1 standard drink = 0.6 oz pur e alcohol) PHQ-2 Answer Date Recorded Patient Health Questionnaire-2 Score 0 10/05/2024 Sex and Gender Information Value Date Recorded Sex Assigned at Not on file Legal Sex Male 7:30 PM EDT Gender Identity Not on file Sexual Orientation Not on file documented as of this encounter Plan of Treatment Scheduled Orders Name Type Priority Associated Diagnoses Orde r Schedule CT shoulder right wo IV contrast Imaging Routine Acute pain of right shoulder Expected: 10/25/2024, Expires: 10/25/2025 Scheduled Referrals Name Type Priority Associated Diagnoses Order Schedule Ambulatory referral to Orthopaedic Surgery Outpatient Referral Routine Muscle spasm of back Acute pain of right shoulder Expected: 10/25/2024 (Approximate), Expires: 04/24/2025 documented as of this encounter Visit Diagnoses Diagnosis Muscle spasm of back Acute pain of right shoulder documented in this encounter Care Teams Train Control Technician Relationship Specialty Start Date End Date Gladis Gibson MD 112 [facility] 110 [place] [address] PCP - General Family Medicine 09/22/22 Gladis Gibson MD [address] [place] [facility] 110 [place] [address] PCP - [place] [employer] 06/23/24 documented as of this encounter
--- OUTSIDE RECORDS SUMMARY | 2024-10-31 11:59 | XMS_ITS | Encounter Summary ---
Author Organization [facility] Address [address] [facility] [place] [address] Care Team Providers Care Medical Driver Name Role Phone Gladis Gibson MD Unavailable Gladis Gibson MD Primary Care Provider [phone] Gladis Gibson MD Unavailable Encounter Details Date Type Department Care Team (Late st Contact Info) Description 01/06/2024 Abstract [facility] [address] [place] [address] Yonatan Arshad, DPM FACFAS [address] [place] [address] Social History Tobacco Use Types [...] on filedocumented in this encounter Care Teams Medical Driver Relationship Specialty Start Date End Date Gladis Gibson MD [address] [facility] 110 [place] [address] PCP - [place] [employer] 06/23/2101/22 Gladis Gibson MD [address] [facility] 110 [place] [address] PCP - General Family Medicine 09/22/22 Gladis Gibson MD 112 [facility] 110 [place] [address] PCP - [place] [employer] 06/23/24 documented as of this encounter
--- OUTSIDE RECORDS SUMMARY | 2024-10-31 11:59 | XMS_ITS | Encounter Summary ---
Author Organization [facility] Address [address] [place] [address] Care Team Providers Care Chief Cloth Finishing Range Operator Name Role Phone Gladis Phoenix MD Unavailable Gladis Phoenix MD Primary Care Provider [phone] Gladis Phoenix MD Unavailable Encounter Details Date Type Department Care Team (Late st Contact Info) Description 01/02/2024 Clinisync Result Encounter [facility] External Department Unsolicited [...] Procedure Name Priority Date/Time Associated Diagnosis Comments CT FOOT LT WO CON 01/02/2024 8:4 7 AM EST documented in this encounter Results * CT FOOT LT WO CON (01/02/2024 8:47 AM EST) Anatomical Region Laterality Modality Other 01/02/2024 8:47 AM EST Narrative 01/02/2024 8:49 AM EST The [address] [address] [address] Scan Report Signed Patient: LEIDA CERRATO MR#: [id number] : 1965 Acct:[id number] Age/Sex: 58 / M ADM Date: 12/30/23 Loc: RAD Attending Dr: MARY GRACE ROSADO M.D. Ordering Physician: MARY GRACE ROSADO M.D. Date of Service: 12/30/23 Procedure(s): CT foot LT wo con Accession Number(s): [id number] cc: GLADIS PHOEN[place] [address] Patient Name: LEIDA CERRATO MRN: [id number] date: 1965 Sex: M Assigned Patient Location: [facility] Current Patient Location: [facility] Accession/Order Number: [id number] Exam Date: 12/30/2023 14:19 Report Date: 01/02/2024 08:47 At the request of: MARY GRACE ROSADO Procedure: CT foot LT wo con CT scan left foot and ankle without contrast 12/30/2023. HISTORY: The patient reportedly has a history of diabetes and cut the left great toe 2 weeks ago. Infection of the left great toe. COMPARISON: None. TECHNIQUE: Multiple contiguous axial CT images of the left foot and ankle were obtained without contrast. Sagittal and coronal reformatted images were made. Dose reduction techniques were achieved by using automated exposure control and/or adjustment of mA and/or kV according to patient size and/or use of iterative reconstruction technique. FINDINGS: There are extensive atherosclerotic vascular calcifications seen. There are calcaneal enthesophytes. There is a type II accessory navicular bone. There are mild degenerative changes of the talonavicular joint. There is an enthesophyte of the base of the fifth metatarsal. There is a hallux valgus deformity. There are mild degenerative changes of the first MTP joint. There appears to be a small soft tissue ulcer along the plantar aspect of the distal first toe with adjacent soft tissue swelling. There are also multiple small bubbles of gas within the underlying subcutaneous fat plantar to the first distal phalanx in this region. However, no erosive change of the first toe is seen. No periosteal reaction. CT/CT foot LT wo con IMPRESSION: 1. There appears to be a small soft tissue ulcer along the plantar aspect of the distal first toe with adjacent soft tissue swelling which may be due to a cellulitis, but this is nonspecific. There are also multiple small bubbles of gas within the underlying subcutaneous fat in this region which may be due to an infection by a gas-forming organism. 2. No CT evidence of osteomyelitis is seen of the first toe. However, please note that MRI is more sensitive for the detection of osteomyelitis than CT. 3. There are other degenerative changes as described above. 4. Atherosclerotic vascular disease. Electronically authenticated by: DONTA BUCKLEY Date: 01/02/2024 08:47 Dictated By: Donta Buckley M.D. Signed By: 01/02/2449 DD/ 6 TD/TT: Journeyman Pipe Welder: Procedure Note Radiology, Radiologist, MD - 01/02/2024 [place] [address] CT Scan Report Signed Patient: LEIDA CERRATO RMR#: [id number] : 1965Acct:[id number] Age/Sex: 58 / MADM Date: 12/30/23 Loc: RAD Attending Dr: MARY GRACE ROSADO M.D. Ordering Physician: MARY GRACE ROSADO M.D. Date of Service: 12/30/23 Procedure(s): CT foot LT wo con Accession Number(s): [id number] cc: GLADIS PHOENIX [place] [address] Patient Name: LEIDA CERRATO MRN: [id number] date: 1965 Sex: M Assigned Patient Location: [facility] Current Patient Location: [facility] Accession/Order Number: [id number] Exam Date: 12/30/2023 14:19 Report Date: 01/02/2024 08:47 At the request of: MARY GRACE ROSADO Procedure: CT foot LT wo con CT scan left foot and ankle without contrast 12/30/2023. HISTORY: The patient reportedly has a history of diabetes and cut the left great toe 2 weeks ago. Infection of the left great toe. COMPARISON: None. TECHNIQUE: Multiple contiguous axial CT images of the left foot and anklewere obtained without contrast. Sagittal and coronal reformatted images weremade. Dose reduction techniques were achieved by using automated exposurecontrol and/or adjustment of mA and/or kV according to patient size and/or use of iterative reconstruction technique. FINDINGS: There are extensive atherosclerotic vascular calcifications seen. Thereare calcaneal enthesophytes. There is a type II accessory navicular bone.There are mild degenerative changes of the talonavicular joint. There is anenthesophyte of the base of the fifth metatarsal. There is a hallux valgus deformity.There are mild degenerative changes of the first MTP joint. There appears to be a small soft tissue ulcer along the plantar aspect ofthe distal first toe with adjacent soft tissue swelling. There are alsomultiple small bubbles of gas within the underlying subcutaneous fat plantar to the first distal phalanx in this region. However, no erosive change of thefirst toe is seen. No periosteal reaction. CT/CT foot LT wo con IMPRESSION: 1. There appears to be a small soft tissue ulcer along the plantar aspectof the distal first toe with adjacent soft tissue swelling which may be dueto a cellulitis, but this is nonspecific. There are also multiple small bubblesof gas within the underlying subcutaneous fat in this region which may be dueto an infection by a gas-forming organism. 2. No CT evidence of osteomyelitis is seen of the first toe. However,please note that MRI is more sensitive for the detection of osteomyelitis thanCT. 3. There are other degenerative changes as described above. 4. Atherosclerotic vascular disease. Electronically authenticated by: DONTA BUCKLEY Date: 01/02/2024 08:47 Dictated By: Donta Buckley M.D. Signed By:01/02/24 0849 DD/ 0847 TD/TT: Journeyman Pipe Welder: Generic External Data Provider [facility] Final Result documented in this encounter Visit Diagnoses Not on filedocumented in this encounter Care Teams Chief Cloth Finishing Range Operator Relationship Specialty Start Date End Date Gladis Phoenix MD [address] [facility] [address] [place] [address] [place] Vides 06/23/2101/22 Gladis Phoenix MD [address] [facility] [address] [place] [address] PCP - General Family Medicine 09/22/22 Gladis Phoenix MD 112 [place] [address] PCP - Barbara Vides 06/23/24 documented as of this encounter
--- OUTSIDE RECORDS SUMMARY | 2024-10-31 11:59 | XMS_ITS | Encounter Summary ---
Author Organization [facility] Address [address] [place] [facility] [place] [address] Care Team Providers Care Plastic Extrusion Operator Name Role Phone Gladis Gibson MD Unavailable Gladis Gibson MD Primary Care Provider Gladis Gibson MD Unavailable Encounter Details Date Type Department Care Team (Late st Contact Info) Description 12/21/2023 Abstract [facility] [address] [place] [address] Yonatan Arshad, DPM FACFAS [address] [place] [address] Social History Tobacco Use Types [...] on filedocumented in this encounter Care Teams Plastic Extrusion Operator Relationship Specialty Start Date End Date Gladis Gibson MD 112 [facility] 110 [place] [address] PCP - [place] [employer] 06/23/2101/22 Gladis Gibson MD 112 [facility] 110 [place] [address] PCP - General Family Medicine 09/22/22 Gladis Gibson MD 112 [facility] 110 [place] [address] PCP - [place] [employer] 06/23/24 documented as of this encounter
--- OUTSIDE RECORDS SUMMARY | 2024-10-31 11:59 | XMS_ITS | Clinical Summary ---
Author Organization [facility] Address [address], [address] [place] [address] Care Team Providers Care Senior Piping Designer Name Role Phone Roque Kiddghjennifer Del Cid DO Primary Care Provider Unavail able Allergies Active Allergy Reactions Criticality Noted Date Comments Codeine Nausea Only 05/03/2013 Medications omeprazole (PRILOSEC) 20 MG capsule Take 20 mg by mouth daily. Active gabapentin (NEURONTIN) 300 MG capsule Take 300 mg by mouth. Pt takes 1-2 tab at HS, may take up to 6 / daily. Active lisinopril (PRINIVIL;ZESTRI L) 2.5 MG tablet Take 2.5 mg by mouth daily. Active clopidogrel (PLAVIX) 75 MG tablet Take 75 mg by mouth daily. Active insulin glargine (LANTUS SOLOSTAR) 100 UNIT/ML injection Inject 35 Units into the skin daily. Active simvastatin (ZOCOR) 20 MG tablet Take 20 mg by mouth nightly. Active meclizine (ANTIVERT) 25 MG tablet Take 25 mg by mouth 3 times daily as needed. Active docusate sodium (COLACE) 100 MG capsule Take 100 mg by mouth 2 times daily. Active aspirin 81 MG EC tablet Take 81 mg by mouth daily. Active carvedilol (COREG) 12.5 MG tablet Take 12.5 mg by mouth 2 times daily (with meals). Active Active Problems Problem Noted Date Diagnosed Date Abdominal pain 05/03/2013 Family History Relation Name Status Comments Brother 1 Alive Brother 2 Alive Father Mother Alive Sister Alive Social History Tobacco Use Types Packs/Day Years Used Date Smoking Tobacco: Former Cigarettes 1 25 Smokeless Tobacco: Former Alcohol Use Standard Drinks/Week Comments Yes 0 (1 standard drink = 0.6 oz pur e alcohol) Weekends-Beer Sex and Gender Information Value Date Recorded Sex Assigned at Not on file Legal Sex Male 12:34 PM EST Gender Identity Not on file Sexual Orientation Not on file Last Filed Vital Signs Vital Sign Reading Time Taken Comments Blood Pressure 143/83 05/03/2013 11:22 AM EDT Pulse 93 05/03/2013 11:22 AM EDT Temperature 36.7 C (98 F) 05/03/2013 11:22 AM EDT Respiratory Rate 20 05/03/2013 11:22 AM EDT Oxygen Saturation - - Inhaled Oxygen Concentration - - Weight 89 kg (196 lb 3.2 oz) 05/03/2013 11:22 AM EDT Height 182.9 cm (6') 05/03/2013 11:22 AM EDT Body Mass Index 26.61 05/03/2013 11:22 AM EDT Plan of Treatment Not on file Care Teams Senior Piping Designer Relationship Specialty Start Date End Date Wilfrido Kidd DO PCP - General 04/28/13
--- OUTSIDE RECORDS SUMMARY | 2024-10-31 11:59 | XMS_ITS | Encounter Summary ---
Author Organization [facility] Address [address] [facility] [place] [address] Care Team Providers Care Cell Inspector Name Role Phone Gladis Gibson MD Primary Care Provider [phone] Gladis Gibson MD Unavailable Encounter Details Date Type Department Care Team (Late st Contact Info) Description 01/27/2024 Abstract [facility] [address] [facility] 110 [place] [address] Gladis Gibson MD [address] [facility] 110 [place] [address] Social History Tobacco Use Types Packs/Day Years [...] on filedocumented in this encounter Care Teams Cell Inspector Relationship Specialty Start Date End Date Gladis Gibson MD [address] [facility] 110 [place] [address] PCP - General Family Medicine 09/22/22 Gladis Gibson MD [address] [facility] 110 [place] [address] PCP - [place] [employer] 06/23/24 documented as of this encounter
--- OUTSIDE RECORDS SUMMARY | 2024-10-31 11:59 | XMS_ITS | Encounter Summary ---
Author Organization [facility] Address [address] [place] [facility] [place] [address] Care Team Providers Care Escrow Clerk Name Role Phone Gladis Gibson MD Unavailable Gladis Gibson MD Primary Care Provider Gladis Gibson MD Unavailable Encounter Details Date Type Department Care Team (Late Contact Info) Description 09/24/2022 Abstract [facility] [place] [facility] [address] [facility] 110 [place] [address] Gladis Gibson MD 112 [facility] 110 [place], [place] [id number] Social History Tobacco Use Types Packs/Day Years Used Date Smoking Tobacco: Never Smokeless Tobacco: Current Chew Tobacco Cessation:Ready to Q uit: Not Asked; Counseling Given: Not Answered Alcohol Use Standard Drinks/Week Comments Not Currently [...] on filedocumented in this encounter Care Teams Escrow Clerk Relationship Specialty Start Date End Date Gladis Gibson MD 112 [facility] 110 [place], [place] [id number] PCP - [place] [employer] 06/23/2101/22 Gladis Gibson MD 112 [facility] 110 [place] [address] PCP - General Family Medicine 09/22/22 Gladis Gibson MD 112 [facility] 110 [place] [address] PCP - [place] [employer] 06/23/24 documented as of this encounter
--- OUTSIDE RECORDS SUMMARY | 2024-10-31 11:59 | XMS_ITS | Encounter Summary ---
Author Organization [facility] Address [address] [place] [address] Care Team Providers Care Hat Lining Paster Name Role Phone Gladis Gibson MD Unavailable Gladis Gibson MD Primary Care Provider Gladis Gibson MD Unavailable Encounter Details Date Type Department Care Team (Late st Contact Info) Description 12/30/2023 Abstract [facility] [address] [place] [address] Yonatan Arshad, DPM FACFAS [address] [place] [address] Social History Tobacco Use Types [...] on filedocumented in this encounter Care Teams Hat Lining Paster Relationship Specialty Start Date End Date Gladis Gibson MD 112 [facility] 110 [place] [address] PCP - [place] [employer] 06/23/2101/22 Gladis Gibson MD 112 [facility] 110 [place] [address] PCP - General Family Medicine 09/22/22 Gladis Gibson MD 112 [facility] [address] [place] [address] PCP - [place] [employer] 06/23/24 documented as of this encounter
--- OUTSIDE RECORDS SUMMARY | 2024-10-31 11:59 | XMS_ITS | Encounter Summary ---
Author Organization [facility] Address [address] [facility] [place] [address] Care Team Providers Care Lime Plant Operator Name Role Phone Gladis Gibson MD Unavailable Gladis Gibson MD Primary Care Provider [phone] Gladis Gibson MD Unavailable Encounter Details Date Type Department Care Team (Late Contact Info) Description 12/16/2022 Abstract [facility] [place] [facility] [address] [facility] 110 [place] [address] Gladis Gibson MD [address] [facility] 110 [place], [place] [id number] Social History Tobacco Use Types Packs/Day Years [...] on filedocumented in this encounter Care Teams Lime Plant Operator Relationship Specialty Start Date End Date Gladis Gibson MD [address] [facility] 110 [place], [place] [address] PCP - [place] [employer] 06/23/2101/22 Gladis Gibson MD [address] [facility] 110 [place] [address] PCP - General Family Medicine 09/22/22 Gladis Gibson MD 112 [facility] 110 [place] [address] PCP - [place] [employer] 06/23/24 documented as of this encounter
--- OUTSIDE RECORDS SUMMARY | 2024-10-31 11:59 | XMS_ITS | Encounter Summary ---
Author Organization [facility] Address [address] [place] [address] Care Team Providers Care Gold Tooler Name Role Phone Gladis Gibson MD Unavailable Gladis Gibson MD Primary Care Provider Gladis Gibson MD Unavailable Encounter Details Date Type Department Care Team (Late st Contact Info) Description 01/18/2024 Abstract [facility] [address] [place] [address] Yonatan Arshad, DPM FACFAS [address] [place] [address] Social History Tobacco Use Types [...] on filedocumented in this encounter Care Teams Gold Tooler Relationship Specialty Start Date End Date Gladis Gibson MD 112 [facility] 110 [place] [address] PCP - [place] [employer] 06/23/2101/22 Gladis Gibson MD 112 [facility] 110 [place] [address] PCP - General Family Medicine 09/22/22 Gladis Gibson MD 112 [facility] 110 [place] [address] PCP - [place] [employer] 06/23/24 documented as of this encounter
--- OUTSIDE RECORDS SUMMARY | 2024-10-31 11:59 | XMS_ITS | Encounter Summary ---
Author Organization [facility] Address [address] [facility] [place] [address] Care Team Providers Care Checker/Stocker Name Role Phone Gladis Gibson MD Primary Care Provider [phone] Gladis Gibson MD Unavailable Reason for Referral * Imaging (Routine) - Pending Review Specialty Diagnoses / Procedures Referred By Sylvie rodriguez Referred To Contact Diagnoses Intercostal pain Muscle spasm of back Procedures CT chest wo IV contrast Gladis Gibson MD 112 [facility] 110 [place] [address] Phone: tel: fax: Referral ID Status Reason Start Date Expiration Date V isits Requested Visits Authorized [id number] Pending Review 10/31/2024 04/29/2025 1 1 Reason for Visit * Reason Onset Date Comments order change 10/31/2024 Encounter Details Date Type Department Care Team (Late st Contact Info) Description 10/31/2024 Telephone [facility] [facility] 112 [facility] 110 [place] [address] Gladis Gibson MD 112 [facility] [address] [place], [place] [phone] order change Social History Tobacco Use Types Packs/Day Years [...] on file documented as of this encounter Miscellaneous Notes * Telephone Encounter - Triny Crenshaw LPN - 10/31/2024 8:12 AM EDT [facility] ct called stating pt was upset because he wanted a ct of his chest not of his shoulder he has pain from sternum across chest spoke with jessica and dr ramirez gave the okay for order to be switched --faxed new order documented in this encounter Plan of Treatment Scheduled Orders Name Type Priority Associated Diagnoses Orde r Schedule CT chest wo IV contrast Imaging Routine Intercostal pain Muscle spasm of back Expected: 10/31/2024, Expires: 10/31/2025 documented as of this encounter Visit Diagnoses Diagnosis Intercostal pain Muscle spasm of back documented in this encounter Care Teams Checker/Stocker Relationship Specialty Start Date End Date Gladis Gibson MD [address] [facility] 110 [place] [address] PCP - General Family Medicine 09/22/22 Gladis Gibson MD [address] [facility] 110 [place] [address] PCP - Barbara Vides 06/23/24 documented as of this encounter
--- OUTSIDE RECORDS SUMMARY | 2024-10-31 11:59 | XMS_ITS | Encounter Summary ---
Author Organization [facility] Address [address] [facility] [place] [address] Care Team Providers Care Seed Laboratory Technician Name Role Phone Gladis Gibson MD Unavailable Gladis Gibson MD Primary Care Provider Gladis Gibson MD Unavailable Encounter Details Date Type Department Care Team (Late st Contact Info) Description 12/24/2023 Abstract [facility] [place] [facility] [address] [facility] 110 [place] [address] Gladis Gibson MD [address] [facility] 110 [place], [place] [phone] Social History Tobacco Use Types Packs/Day Years [...] on filedocumented in this encounter Care Teams Seed Laboratory Technician Relationship Specialty Start Date End Date Gladis Gibson MD [address] [facility] 110 [place], [place] [address] PCP - [place] [employer] 06/23/2101/22 Gladis Gibson MD [address] [facility] 110 [place] [address] PCP - General Family Medicine 09/22/22 Gladis Gibson MD 112 [facility] 110 [place] [address] PCP - [place] [employer] 06/23/24 documented as of this encounter
--- OUTSIDE RECORDS SUMMARY | 2024-10-31 11:59 | XMS_ITS | Encounter Summary ---
Author Organization [facility] Address [address] [place] [address] Care Team Providers Care Product Management Consultant Name Role Phone Gladis Gibson MD Unavailable Gladis Gibson MD Primary Care Provider [phone] Gladis Gibson MD Unavailable Reason for Visit * Reason Onset Date Comments cough syrup 12/05/2022 Encounter Details Date Type Department Care Team (Late st Contact Info) Description 12/05/2022 Telephone [facility] [place] [facility] [address] [facility] 110 [place] [phone] Heena Joiner, MANISH [address] [facility] 110 [place], [place] [id number] cough syrup Social History Tobacco Use Types Packs/Day Years [...] encounter Miscellaneous Notes * Telephone Encounter - Rhianna Stevens - 12/06/2022 10:12 AM EDT Pt calls to check on the rx. Needs sent to [facility]. Called Sukh Joiner and oriana CLARK. Pt would liketo be notified when sent. * Telephone Encounter - Ryne Nicholson - 12/05/2022 5:41 PM EDT Spoke w/Heena Joiner NP and she will re-send the cough medication. Patient notified. * Telephone Encounter - Ryne Nicholson - 12/05/2022 5:23 PM EDT Tone Morrissey 61 PCP: PH: [phone]: PCP: Dr. Gibson: Saw [facility] today and was to have RX sent to [facility]. They gave him the antibiotic but are out of the cough medication. He would like it sent to [email or web address]. documented in this encounter Plan of Treatment Not on file documented as of this encounter Visit Diagnoses Not on filedocumented in this encounter Care Teams Product Management Consultant Relationship Specialty Start Date End Date Gladis Gibson MD [address] [facility] 110 [place] [address] PCP - [place] Commercial 06/23/2101/22 Gladis Gibson MD [address] [facility] [address] [place] [address] PCP - General Family Medicine 09/22/22 Gladis Gibson MD [address] [facility] 110 [place] [address] PCP - [place] Commercial 06/23/24 documented as of this encounter
--- OUTSIDE RECORDS SUMMARY | 2024-10-31 11:59 | XMS_ITS | Encounter Summary ---
Author Organization [facility] Address [address] [facility] [place] [address] Care Team Providers Care Exterior Designer Name Role Phone Gladis Gibson MD Primary Care Provider [phone] Gladis Gibson MD Unavailable Encounter Details Date Type Department Care Team (Late st Contact Info) Description 07/11/2024 Abstract [facility] [place] [facility] [address] [facility] 110 [place] [address] Gladis Gibson MD [address] [facility] 110 [place] [address] Social History Tobacco Use Types Packs/Day Years [...] on filedocumented in this encounter Care Teams Exterior Designer Relationship Specialty Start Date End Date Gladis Gibson MD [address] [facility] 110 [place] [address] PCP - General Family Medicine 09/22/22 Gladis Gibson MD 112 [facility] 110 [place] [address] PCP - [place] [employer] 06/23/24 documented as of this encounter
--- OUTSIDE RECORDS SUMMARY | 2024-10-31 11:59 | XMS_ITS | Encounter Summary ---
Author Organization [facility] Address [address] [facility] [place] [address] Care Team Providers Care Truck Mechanic Name Role Phone Gladis Gibson MD Unavailable Gladis Gibson MD Primary Care Provider Gladis Gibson MD Unavailable Encounter Details Date Type Department Care Team (Late Contact Info) Description 01/06/2024 Abstract [facility] [address] [facility] 110 [place] [address] Gladis Gibson MD [address] [facility] 110 [place], [place] [id number] Social History Tobacco Use Types Packs/Day Years [...] on filedocumented in this encounter Care Teams Truck Mechanic Relationship Specialty Start Date End Date Gladis Gibson MD [address] [facility] 110 [place], [place] [id number] PCP - [place] [employer] 06/23/2101/22 Gladis Gibson MD [address] [facility] 110 [place] [address] PCP - General Family Medicine 09/22/22 Gladis Gibson MD 112 [facility] 110 [place] [address] PCP - [place] [employer] 06/23/24 documented as of this encounter
--- OUTSIDE RECORDS SUMMARY | 2024-10-31 11:59 | XMS_ITS | Encounter Summary ---
Author Organization [facility] Address [address] [facility] [place] [address] Care Team Providers Care Burn Table Operator Name Role Phone Gladis Gibson MD Primary Care Provider [phone] Gladis Gibson MD Unavailable Encounter Details Date Type Department Care Team (Late st Contact Info) Description 08/11/2024 Abstract [facility] [address] [facility] 110 [place] [address] Gladis Gibson MD [address] [facility] 110 [place] [address] Social History Tobacco Use Types Packs/Day Years [...] on filedocumented in this encounter Care Teams Burn Table Operator Relationship Specialty Start Date End Date Gladis Gibson MD [address] [place] [address] [facility] 110 [place] [address] PCP - General Family Medicine 09/22/22 Gladis Gibson MD 112 [facility] 110 [place] [address] PCP - [place] [employer] 06/23/24 documented as of this encounter
--- OUTSIDE RECORDS SUMMARY | 2024-10-31 11:59 | XMS_ITS | Encounter Summary ---
Author Organization [facility] Address [address] [place] [address] Care Team Providers Care Optician Manager Name Role Phone Gladis Gibson MD Unavailable Gladis Gibson MD Primary Care Provider [phone] Gladis Gibson MD Unavailable Encounter Details Date Type Department Care Team (Late st Contact Info) Description 12/22/2023 Abstract [facility] [address] [facility] 110 [place] [address] Gladis Gibson MD 112 [facility] 110 [place], [place] [phone] Social History Tobacco Use Types Packs/Day Years [...] on filedocumented in this encounter Care Teams Optician Manager Relationship Specialty Start Date End Date Gladis Gibson MD 112 [facility] 110 [place], [place] [phone] PCP - [place] [employer] 06/23/2101/22 Gladis Gibson MD 112 [facility] 110 [place] [address] PCP - General Family Medicine 09/22/22 Gladis Gibson MD 112 [facility] 110 [place] [address] PCP - [place] [employer] 06/23/24 documented as of this encounter
--- OUTSIDE RECORDS SUMMARY | 2024-10-31 11:59 | XMS_ITS | Clinical Summary ---
Author Organization [facility] Address [address] [place] [address] Care Team Providers Care Healthcare Consultant Name Role Phone Gladis Gibson MD Primary Care Provider Gladis Gibson MD Unavailable Allergies Active Allergy Reactions Criticality Noted Date Comments Atorvastatin Medium 02/10/2014 Other Reaction(s): other Codeine Nausea Only 09/15/2022 Medications aspirin (ASPIR) 81 MG EC tabletIndications :Type 2 diabetes mellitus with diabetic autonomic neuropathy, with long-term current use of insulin (HCC) 1 (one) time each day at the same time. Active carvedilol (Coreg) 25 MG tabletIndications :Primary insomnia every 12 (twelve) hours. Active rosuvastatin (Crestor) 20 MG tabletIndications :Type 2 diabetes mellitus with diabetic autonomic neuropathy, with long-term current use of insulin (HCC) 1 (one) time each day at the same time. Active ezetimibe (Zetia) 10 MG tabletIndications :Hypertriglycerid emia Take 1 tablet (10 mg) by mouth Daily 100 tablet 3 024 Active sacubitril-valsar benitez (Entresto) 24-26 MG tablet Take 1 tablet by mouth in the morning and 1 tablet in the evening. 024 Active amLODIPine (Norvasc) 5 MG tablet Take 5 mg by mouth in the morning. Active gabapentin (Neurontin) 600 MG tabletIndications :Diabetic polyneuropathy associated with type 2 diabetes mellitus (HCC) Take 1 tablet (600 mg) by mouth in the morning and 1 tablet (600 mg) in the evening and 1 tablet (600 mg) before bedtime. 270 tablet 3 024 2024 Active Insulin Syringe-Needle U-100 (BD Veo Insulin Syringe U/F) 31G X 15/64 0.5 ML miscIndications:T ype 2 diabetes mellitus with diabetic autonomic neuropathy, with long-term current use of insulin ([facility]) Infuse 1 Device into a venous catheter in the morning and 1 Device at noon and 1 Device in the evening and 1 Device before bedtime. 400 each 3 024 Active omeprazole (PriLOSEC) [address] capsuleIndication s:Gastroesophagea l reflux disease without esophagitis TAKE 1 CAPSULE BY MOUTH EVERY DAY AT THE SAME TIME EACH DAY 100 capsule 3 025 Active meclizine (Antivert) 25 MG tabletIndications :Fluid level behind tympanic membrane of left ear 1 tablet as needed Orally every 4-6 hours as needed for 90 days 30 tablet 1 025 Active albuterol HFA 90 mcg/act inhalerIndication s:Acute bronchitis, unspecified organism INHALE 2 PUFFS EVERY 4 (FOUR) HOURS IF NEEDED FOR WHEEZING OR SHORTNESS OF BREATH. 18 g 3 025 2025 Active clopidogrel (Plavix) 75 MG tablet Take 75 mg by mouth Daily 025 Active pen needle 30G x 8 mm miscIndications:T ype 2 diabetes mellitus with diabetic autonomic neuropathy, with long-term current use of insulin ([facility]) Use as instructed 270 each 3 025 Active empagliflozin (Jardiance) 25 MGIndications:Typ e 2 diabetes mellitus with diabetic autonomic neuropathy, with long-term current use of insulin ([facility]) Take 1 tablet (25 mg) by mouth in the morning. 30 tablet 11 025 Active diazePAM (Valium) 5 MG tabletIndications :Primary insomnia Take 1 tablet (5 mg) by mouth 1 (one) time each day at the same time PRN 30 tablet 025 Active insulin aspart (NovoLOG FLEXPEN) 100 UNIT/ML penIndications:Ty pe 2 diabetes mellitus with foot ulcer (CODE) ([facility]) INJECT 30 UNITS UNDER THE SKIN IN THE MORNING AND AT NOON AND IN THE EVENING. INJECT BEFORE MEALS. 100 mL 3 025 Active baclofen (Lioresal) 10 MG tabletIndications :Type 2 diabetes mellitus with diabetic autonomic neuropathy, with long-term current use of insulin ([facility]) TAKE 1 TABLET (10 MG) BY MOUTH 2 TIMES A DAY NEEDED FOR MUSCLE SPASMS NEEDED 180 tablet 1 025 Active insulin degludec (Tresiba FlexTouch) 200 UNIT/ML injectionIndicati ons:Type 2 diabetes mellitus without complication, with long-term current use of insulin ([facility]) INJECT 56 UNITS UNDER THE SKIN AT BEDTIME 9 mL 5 025 Active Continuous Glucose Sensor (FreeStyle Shazia 3 Plus Sensor) miscIndications:P oorly controlled diabetes mellitus ([facility]) 1 each every 14 (fourteen) days 12 each 3 025 Active tiZANidine (Zanaflex) 4 MG tabletIndications :Muscle spasm of back Take 1 tablet (4 mg) by mouth every 6 (six) hours if needed for muscle spasms for up to 10 days 30 tablet 025 2024 Active Continuous Glucose Sensor (FreeStyle Shazia 2 Sensor) miscIndications:P oorly controlled diabetes mellitus ([facility]) Inject 1 each under the skin every 14 (fourteen) days 6 each 3 024 2024 Discontinued azithromycin (Zithromax) 250 MG tabletIndications :Acute bronchitis, unspecified organism 2 tabs x 1 day, then 1 tab x 4 days 6 tablet 025 2024 Discontinued tiZANidine (Zanaflex) 4 MG tabletIndications :Muscle spasm of back Take 1 tablet (4 mg) by mouth every 6 (six) hours if needed for muscle spasms for up to 10 days 30 tablet 025 2024 Discontinued(Tomasz robert) predniSONE (Deltasone) 10 MG tabletIndications :Intercostal pain Take 4 tablets (40 mg) by mouth Daily for 4 days, THEN 3 tablets (30 mg) Daily for 4 days, THEN 2 tablets (20 mg) Daily for 4 days, THEN 1 tablet (10 mg) Daily for 4 days. 40 tablet 025 2024 Continuous Glucose Sensor (FreeStyle Shazia 2 Sensor) miscIndications:P oorly controlled diabetes mellitus (HCC) INJECT 1 EACH UNDER THE SKIN EVERY 14 (FOURTEEN) DAYS 100 each 11 025 2024 Discontinued Continuous Glucose Sensor (FreeStyle Shazia 3 Plus Sensor) miscIndications:P oorly controlled diabetes mellitus (HCC) 1 each every 14 (fourteen) days 12 each 3 025 2024 Discontinued(R eorder) Active Problems Problem Noted Date Diagnosed Date Atherosclerosis of [place] co ronary artery without angina pectoris 09/15/2022 Chronic GERD 09/15/2022 Gastroesophageal reflux disease without esophagi tis 09/15/2022 Claudication 09/15/2022 Diabetic neuropathy 09/15/2022 ED (erectile dysfunction) of organic origin 08/24 Hypertension associated with type 2 diabetes rory litus 09/15/2022 Assessment & Plan (09/22/2022 10:41 AM EDT): Our specific goals, for your hypertension, is to keep your blood pressure less than 140/90, and the importance of weight control. We made recommendations on how to control your blood pressure, and minimize your risk of these copmplications. We also discussed your current barriers to a healthy living and importance of healthy diet and exercise. Prior to your visit today we have reviewed your chart and formed a plan to assist with providing you the best possible care. We reviewed the possible complications of hypertension including, stroke, heart failure and kidney impairment. In addition, we discussed your medications, the importance of taking them as prescribed. DASH diet handouts Hypertriglyceridemia 09/15/2022 Insomnia 09/15/2022 Ischemic cardiomyopathy 09/15/2022 Lipoprotein deficiency disorder 09/15/2022 Microalbuminuria 09/15/2022 Poorly controlled diabetes mellitus 09/15/2022 Seasonal allergic rhinitis 09/15/2022 Seasonal allergies 09/15/2022 Thrombocytopenia 09/15/2022 Type 2 diabetes mellitus wit h diabetic autonomic (poly)neuropathy 09/15/2022 Assessment & Plan (05/16/2024 2:40 PM EDT): Patient was only doing 3 units and needed to do 30U Will Recheck in 4 weeks No Tobacco use Follow ADA 1800 diet low carbohydrate Continue Med Compliance Goal LDL less than 100 Goal BP 130/80 Goal HgbA1c < 7.0% Monitor Feet, monitor for infection Needs Exercise Yearly eye exams Prior to your visit today we reviewed your chart and outlined testing and treatment needed for your care. Reviewed poissble complications of diabetes including, loss of vision, kidney failure and increased risk of heart attacks and stroke. We made recommendations on how to control your blood sugars, and minimize your risk of these complications. We discussed your current barriers to a healthy living and importance of healthy diet and exercise. Assessment & Plan (09/22/2022 10:36 AM EDT): No Tobacco use Follow ADA 1800 diet low carbohydrate Continue Med Compliance Goal LDL less than 100 Goal BP 130/80 Goal HgbA1c < 7.0% Monitor Feet, monitor for infection Needs Exercise Yearly eye exams Prior to your visit today we reviewed your chart and outlined testing and treatment needed for your care. Reviewed poissble complications of diabetes including, loss of vision, kidney failure and increased risk of heart attacks and stroke. We made recommendations on how to control your blood sugars, and minimize your risk of these complications. We discussed your current barriers to a healthy living and importance of healthy diet and exercise. Epigastric pain 01/28/2022 History of mitral valve repair 01/28/2022 Overview (01/18/2023): 2012 Tobacco dependence due to chewing tobacco 2021 Benign hypertensive cardiomyopathy with heart fa ilure 07/31/2017 Overview (01/18/2023): Last Assessment & Plan: HTN is 112/67 and well controlled Will compromise with pt to decrease coreg to 25 mg twice a day and explained importance of taking this med twice a day as prescribed, continue all other meds- lisinopril 40 mg daily, and norvasc. Pt sent to lab for blood draw today Deviated septum 10/13/2016 Fluid level behind tympanic membrane of left ear 10/13/2016 Autonomic neuropathy due to type 2 diabetes kailee itus 05/26/2016 Abdominal pain 05/03/2013 Conduction disorder of the heart 03/04/2013 Cardiac pacemaker in situ 12/16/2012 Overview (01/18/2023): Last Assessment & Plan: He has not had device check in over 1 year -will have device check scheduled for month Implantable cardioverter-defibrillator (ICD) in situ 12/09/2012 Systolic heart failure 10/15/2012 Overview (01/18/2023): Last Assessment & Plan: [facility] II Continue GDMT- ASA, coreg, lisinopril, crestor, and jardiance Diuretic therapy- jardiance he remains euvolemic Monitor daily weights, I&O, fluid restriction 1.5-2L/day, renal function and electrolytes He has not had echocardiogram completed or labs as ordered per Dr andrews this past April. He is not compliant with medications and currently taking coreg 25 mg once daily instead of 50 mg bid r/t concerns about b/p being too low- without any symptoms. Abscess of peritoneum 04/22/2012 Overview (01/18/2023): INTRAPERITONEAL ABSCESS Calculus of gallbladder with cholecystitis 12/30 Congestive heart failure 12/31/2011 Ventricular tachycardia 12/31/2011 Overview (01/18/2023): Last Assessment & Plan: stable SINUS Constipation 12/23/2011 Mitral valve disorder 12/17/2011 Overview (01/18/2023): Last Assessment & Plan: echocardiogram ordered and reminded pt to have this completed S/P RING REPAIR Diverticulitis of sigmoid colon 12/09/2011 Overview (01/18/2023): HINCHEY III Resolved Problems Problem Noted Date Diagnosed Date Resolved Date Type 2 diabetes mellitus without complication 09/16/19 23 04/30/2023 Encounters Date Type Department Care Team Description 10/31/2024 Telephone [facility] [address] [place] [address] [place] [address] Gladis Gibson MD order change 10/25/2024 Refill [facility] [address] [place] [address] [place] [address] Zenia Christina, SUPERVISORY IT SPECIALIST Muscle spasm of back; Acute pain of right shoulder 10/07/2024 Refill [facility] [address] [place] [address] [place] [address] Triny Crenshaw LPN Poorly controlled diabetes mellitus (HCC) 10/06/2024 Telephone [facility] [address] [place] [address] [place] [address] Gladis Gibson MD 10/05/2024 9:00 AM EDT Office Visit [facility] [address] [place] [address] [place] [address] Zenia Christina, SUPERVISORY IT SPECIALIST Muscle spasm of back (Primary Dx); Intercostal pain 10/05/2024 Refill [facility] [address] [place] [address] [place] [address] Yanci Fry, PA Poorly controlled diabetes mellitus (HCC) 10/05/2024 Bamboo flowsheet [facility] [address] [place] [address] [place] [address] Zenia Christina, SUPERVISORY IT SPECIALIST 10/05/2024 Travel 09/22/2024 Refill [facility] [address] [place] [address] [place] [address] Yanci Fry, PA Type 2 diabetes mellitus without complication, with long-term current use of insulin (HCC) 09/21/2024 Abstract [facility] [address] [place] [address] [place] [address] Gladis Gibson MD 09/21/2024 Abstract [facility] [address] [place] [address] [place] [address] Gladis Gibson MD 09/21/2024 Abstract [facility] [address] [place] [address] Gladis Gibson MD 08/24/2024 Abstract [facility] [address] [place] [address] Gladis Gibson MD 08/21/20[address] [facility] [address] [place] [address] Yanci Fry, PA Type 2 diabetes mellitus with diabetic autonomic neuropathy, with long-term current use of insulin ([facility]) 08/11/2024 Abstract [facility] [address] [place] [address] Gladis Gibson MD from Last 3 Months Immunizations Immunization Administration Dates Next Due DTP 10/16/2021 Tdap 10/16/2021,08/29/2017 Family History Medical History Relation Name Comments Heart disease Father Heart disease Mother Relation Name Status Comments Daughter Alive 1 daughter Father Mother Son Alive 1 son Social History Tobacco Use Types Packs/Day Years Used Date Smoking Tobacco: Never Smokeless Tobacco: Current Chew Tobacco Cessation:Ready to Q uit: Not Asked; Counseling Given: Yes Alcohol Use Standard Drinks/Week Comments Not Currently [...] Sign Reading Time Taken Comments Blood Pressure 138/78 10/05/2024 9:08 AM EDT Pulse 85 10/05/2024 9:08 AM EDT Temperature 36.4 C (97.5 F) 09/28/2023 10:35 AM EDT Respiratory Rate 16 10/05/2024 9:08 AM EDT Oxygen Saturation 98% 10/05/2024 9:08 AM EDT Inhaled Oxygen Concentration - - Weight 92.5 kg (204 lb) 10/05/2024 9:08 AM EDT Height 182.9 cm (6') 10/05/2024 9:08 AM EDT Body Mass Index 27.67 10/05/2024 9:08 AM EDT Plan of Treatment Health Maintenance Due Date Last Done Comments Diabetes: Urine Protein Screening 01/30/2024 023, 07/05/2018 Diabetes: Retinopathy Screening 05/06/2024 Diabetes: Hemoglobin A1C 08/16/2024 025, 12/16/2023, 07/29/2023, Additional history exists Influenza Vaccine (#1) 2024 Colonoscopy Discontinued 10/31/2015 Colorectal Cancer Screening Discontinued CT Colonography Discontinued FIT-DNA Discontinued FIT Discontinued FOBT Discontinued Sigmoidoscopy Discontinued Procedures Procedure Name Priority Date/Time Associated Diagnosis Comments POCT GLYCOSYLATED HEMOGLOBIN (HGB A1C) Routine 05/16/2024 2:50 PM EDT Type 2 diabetes mellitus with diabetic autonomic neuropathy, with long-term current use of insulin (HCC) Type 2 diabetes mellitus with foot ulcer (CODE) (HCC) MICROALBUMIN / CREATININE URINE RATIO Routine 01/29/2023 2:04 PM EST Type 2 diabetes mellitus with diabetic autonomic neuropathy, with long-term current use of insulin (HCC) COLONOSCOPY Routine 10/31/2015 12:00 PM EDT from Last 3 Months or Most Recently Relevant to Health Maintenance Results * (ABNORMAL) POCT glycosylated hemoglobin (Hb A1C) docked device (05/16/2024 2:50 PM EDT) Hemoglobin A1C 8.9 Blood Venous blood specimen / Unknown 05/16/2024 2:50 PM EDT Gladis Gibson MD POINT OF CARE TEST ENTER/EDIT OR DERABLES Final Result * (ABNORMAL) Microalbumin / creatinine, urine ratio (01/29/2023 2:04 PM EST) CREATININE, RANDOM URINE 51 20 - 320 mg/dL [facility] ALBUMIN, URINE 9.7 See Note: mg/dL [facility] Comment: Reference Range: Reference Range Not established ALBUMIN/CREATININE RATIO, RANDOM URINE 190(H) <30 mcg/mg creat [facility] Comment: The ADA defines abnormalities in albumin excretion as follows: Albuminuria Category Result (mcg/mg creatinine) Normal to Mildly increased <30 Moderately increased 30-299 Severely increased > OR = 300 The ADA recommends that at least two of three specimens collected within a 3-6 month period be abnormal before considering a patient to be within a diagnostic category. Urine Urine specimen obtained by clean catch procedure / Unknown 01/29/2023 2:04 PM EST 01/29/2023 2:08 PM EST Narrative Resulting Agency Comment Performing Organization Information Site ID: [email or web address] Name: [email or web address] [facility] Address: [address] [place] [address], [address] [place] [id number] Director: Max Partida MD Yanci [facility] URINE ORDERABLES Final Res ult [facility] * Colonoscopy (10/31/2015 12:00 PM EDT) Anatomical Region Laterality Modality Endoscopy 10/31/2015 12:0 0 PM EDT Narrative 10/31/2015 12:00 PM EDT PERFORMED AT [facility] LOCATION:[id number] severe sigmoid colon diverticulosis, ascending colon adenoma Procedure Note CONVERSION, GENERIC - 07/10/2022 PERFORMED AT [facility] LOCATION:[id number] severe sigmoid colon diverticulosis, ascending colon adenoma Gladis Gibson MD ENDOSCOPY PROCEDURE ORDERABLES F inal Result from Last 3 Months or Most Recently Relevant to Health Maintenance Insurance [facility] Care Teams Healthcare Consultant Relationship Specialty Start Date End Date Gladis Gibson MD [address] [place] [address] [place] [address] PCP - General Family Medicine 09/22/22 Gladis Gibson MD [address] [place] [address] [place] [address] PCP - Barbara Vides 06/23/24
--- OUTSIDE RECORDS SUMMARY | 2024-10-31 11:59 | XMS_ITS | Encounter Summary ---
Author Organization [facility] Address [address] [facility] [place] [address] Care Team Providers Care Principal Statistical Programmer Name Role Phone Gladis Gibson MD Unavailable Gladis Gibson MD Primary Care Provider Gladis Gibson MD Unavailable Encounter Details Date Type Department Care Team (Late Contact Info) Description 01/07/2024 Abstract [facility] [address] [facility] [address] [place] [address] Gladis Gibson MD [address] [place] [facility] 110 [place], [place] [phone] Social History Tobacco Use Types Packs/Day Years [...] on filedocumented in this encounter Care Teams Principal Statistical Programmer Relationship Specialty Start Date End Date Gladis Gibson MD [address] [facility] 110 [place], [place] [phone] PCP - [place] [employer] 06/23/2101/22 Gladis Gibson MD [address] [facility] [address] [place] [address] PCP - General Family Medicine 09/22/22 Gladis Gibson MD 112 [facility] 110 [place] [address] PCP - [place] [employer] 06/23/24 documented as of this encounter
--- OUTSIDE RECORDS SUMMARY | 2024-10-31 11:59 | XMS_ITS | Encounter Summary ---
Author Organization [facility] Address [address] [facility] [place] [address] Care Team Providers Care Master Of Ceremonies Name Role Phone Gladis Gibson MD Unavailable Gladis Gibson MD Primary Care Provider Gladis Gibson MD Unavailable Encounter Details Date Type Department Care Team (Late st Contact Info) Description 12/21/2023 Abstract [facility] [address] [place] [address] Yonatan Arshad, DPM FACFAS [address] [place] [address] Social History Tobacco Use Types [...] on filedocumented in this encounter Care Teams Master Of Ceremonies Relationship Specialty Start Date End Date Gladis Gibson MD [address] [facility] 110 [place] [address] PCP - [place] [employer] 06/23/2101/22 Gladis Gibson MD 112 [facility] 110 [place] [address] PCP - General Family Medicine 09/22/22 Gladis Gibson MD [address] [facility] 110 [place] [address] PCP - [place] [employer] 06/23/24 documented as of this encounter
--- OUTSIDE RECORDS SUMMARY | 2024-10-31 11:59 | XMS_ITS | Encounter Summary ---
Author Organization [facility] Address [address] [facility] [place] [address] Care Team Providers Care Chemist Inorganic Name Role Phone Gladis Gibson MD Primary Care Provider [phone] Gladis Gibson MD Unavailable Encounter Details Date Type Department Care Team (Late st Contact Info) Description 08/24/2024 Abstract [facility] [address] [facility] 110 [place] [address] Gladis Gibson MD [address] [facility] 110 [place] [address] Social History Tobacco Use Types Packs/Day Years [...] on filedocumented in this encounter Care Teams Chemist Inorganic Relationship Specialty Start Date End Date Gladis Gibson MD [address] [place] [facility] 110 [place] [address] PCP - General Family Medicine 09/22/22 Gladis Gibson MD [address] [facility] 110 [place] [address] PCP - [place] [employer] 06/23/24 documented as of this encounter
--- OUTSIDE RECORDS SUMMARY | 2024-10-31 11:59 | XMS_ITS | Clinical Summary ---
Author Organization [facility] [facility] Address [id number] [address] [place] [address] Care Team Providers Care Software Configuration Engineer Name Role Phone Gladis Gibson MD Primary Care Provider [phone] Allergies Active Allergy Reactions Criticality Noted Date Comments Codeine Nausea 10/13/2016 Medications meclizine (ANTIVERT) 25 mg tablet Take by mouth. Activ e carvedilol (COREG) 12.5 mg tablet Take by mouth. Activ e lisinopril (PRINIVIL,ZESTRI L) 2.5 mg tablet Take by mouth. Active omeprazole (PriLOSEC) 20 mg capsule Take 20 mg by mouth once daily. 1 7 Active simvastatin (ZOCOR) 20 mg tablet Take by mouth. Activ e fluticasone (FLONASE) 50 mcg/actuation nasal spray Administer 1 spray into each nostril daily. Active albuterol (PROVENTIL HFA;VENTOLIN HFA) 90 mcg/actuation inhaler Inhale 2 puffs every 6 (six) hours as needed for wheezing. Active amoxicillin-pot clavulanate (AUGMENTIN) 125-31.25 mg/5 mL suspension Take by mouth 2 (two) times a day. Active LORazepam (ATIVAN) 1 mg tabletIndication s:Anxiety Take 1 tablet (1 mg total) by mouth every 6 (six) hours as needed for anxiety (One tablet per mouth 1 hour prior to procedure). 30 tablet 0 7 Active ofloxacin (FLOXIN) 0.3 % otic solutionIndicati ons:Anxiety Administer 4 drops into ears 2 (two) times a day. 10 mL 0 7 Active Active Problems Problem Noted Date Diagnosed Date Fluid level behind tympanic membrane of left ear 10/13/2016 Deviated septum 10/13/2016 Family History Medical History Relation Name Comments Heart disease Father Heart disease Mother Relation Name Status Comments Father Mother Social History Tobacco Use Types Packs/Day Years Used Date Smoking Tobacco: Never Alcohol Use Standard Drinks/Week Comments Not Asked 0 (1 standard drink = 0.6 oz pur e alcohol) Childcare Answer Date Recorded Childcare Unknown 08/04/2018 Employment Answer Date Recorded Employment Unknown 08/04/2018 Purpose - Life Answer Date Recorded Purpose and direction in life Unknown Sex and Gender Information Value Date Recorded Sex Assigned at Not on file Legal Sex Male 11:44 AM EDT Gender Identity Not on file Sexual Orientation Not on file Last Filed Vital Signs Vital Sign Reading Time Taken Comments Blood Pressure 132/78 10/13/2016 3:12 PM EDT Pulse - - Temperature - - Respiratory Rate - - Oxygen Saturation - - Inhaled Oxygen Concentration - - Weight 85.3 kg (188 lb) 10/13/2016 3:12 PM EDT Height 182.9 cm (6') 10/13/2016 3:12 PM EDT Body Mass Index 25.5 10/13/2016 3:12 PM EDT Plan of Treatment Health Maintenance Due Date Last Done Comments Depression Screening 1975 Tobacco Screening 1975 Adult BMI Screening 09/06/1981 DTaP,Tdap and Td Vaccines (1 - Tdap) 09/06/1982 Zoster (Shingles) Vaccine (1 of 2) 09/06/2013 Influenza Vaccine 10/24/2024 Medical Devices Not on file Insurance [employer] Care Teams Software Configuration Engineer Relationship Specialty Start Date End Date [place] [address] [place] [address] PCP - General Family Medicine 08/24/19
--- OUTSIDE RECORDS SUMMARY | 2024-10-31 11:59 | XMS_ITS | Encounter Summary ---
Author Organization [facility] Address [address] [facility] [address] Care Team Providers Care Radio Producer Name Role Phone Gladis Gibson MD Primary Care Provider [phone] Gladis Gibson MD Unavailable Encounter Details Date Type Department Care Team (Late st Contact Info) Description 09/21/2024 Abstract [facility] [address] [facility] [address] [place] [address] Gladis Gibson MD [address] [facility] [address] [place], [place] [id number] Social History Tobacco Use Types Packs/Day Years [...] on filedocumented in this encounter Care Teams Radio Producer Relationship Specialty Start Date End Date Gladis Gibson MD [address] [facility] 110 [place] [address] PCP - General Family Medicine 09/22/22 Gladis Gibson MD [address] [facility] [address] [place] [address] PCP - [place] [employer] 06/23/24 documented as of this encounter
--- OUTSIDE RECORDS SUMMARY | 2024-10-31 11:59 | XMS_ITS | Encounter Summary ---
Author Organization [facility] Address [address] [facility] [place] [address] Care Team Providers Care Auto Service Station Attendant Name Role Phone Gladis Gibson MD Unavailable Gladis Gibson MD Primary Care Provider [phone] Gladis Gibson MD Unavailable Reason for Visit * Reason Comments Med Refill Encounter Details Date Type Department Care Team (Late st Contact Info) Description 09/23/2022 Refill [facility] [address] [place] [address] [place] [address] Gladis Gibson MD [address] [place] [address] [place] [address] Poorly controlled diabetes mellitus (HCC) Social History Tobacco Use Types Packs/Day Years Used Date Smoking Tobacco: Never Smokeless Tobacco: Never Sex and Gender Information Value Date Recorded Sex Assigned at Not on file Legal Sex Male 7:30 PM EDT Gender Identity Not on file Sexual Orientation Not on file documented as of this encounter Plan of Treatment Not on file documented as of this encounter Visit Diagnoses Diagnosis Poorly controlled diabetes mellitus (HCC) Type II or unspecified type diabetes mellitus without mention of complication, not stated as uncontrolled documented in this encounter Care Teams Auto Service Station Attendant Relationship Specialty Start Date End Date Gladis Gibson MD [address] [place] [address] [place], [place] [id number] PCP - [place] [employer] 06/23/2101/22 Gladis Gibson MD [address] [facility] [address] [place] [address] PCP - General Family Medicine 09/22/22 Gladis Gibson MD [address] [facility] [address] [place] [address] PCP - [place] [employer] 06/23/24 documented as of this encounter
--- OUTSIDE RECORDS SUMMARY | 2024-10-31 11:59 | XMS_ITS | Encounter Summary ---
Author Organization [facility] Address [address] [facility] [place] [address] Care Team Providers Care Insurance Adjuster Name Role Phone Gladis Gibson MD Primary Care Provider [phone] Gladis Gibson MD Unavailable Encounter Details Date Type Department Care Team (Late st Contact Info) Description 01/28/2024 Abstract [facility] [address] [place] [id number] Yonatan Arshad, DPM FAC[facility] [address] [place] [address] Social History Tobacco Use Types [...] on filedocumented in this encounter Care Teams Insurance Adjuster Relationship Specialty Start Date End Date Gladis Gibson MD [address] [facility] [address] [place], [place] [phone] PCP - General Family Medicine 09/22/22 Gladis Gibson MD [address] [facility] [address] [place], [place] [phone] PCP - [place] [employer] 06/23/24 documented as of this encounter
--- NOTE | 2024-10-31 12:01 | CT_ITS ---
The [address] [address] Patient Name: LEIDA HOU MRN: [id number] date: 1965 Sex: M Assigned Patient Location: CT Current Patient Location: CT Accession/Order Number: [id number] Exam Date: 10/31/2024 12:05 Report Date: 10/31/2024 13:16 At the request of: NOHEMI PHOENIX Procedure: CT chest wo con CT CHEST WITHOUT CONTRAST CLINICAL DATA: Right anterior chest wall pain radiating to the back over the past month after cutting down trees. COMPARISON: None Spiral images were obtained through the chest without contrast. Images were reviewed using both narrow and wide window settings. This CT exam was performed using one or more following dose reduction techniques: Automated exposure control, adjustment of the mA and/or kV according to patient size, or use of iterative reconstruction technique. There is a left-sided pacemaker. Median sternotomy wires and a periprosthetic aortic valve are seen. The heart is within normal limits for size. No pericardial effusion is noted. There is coronary artery disease and/or stents. No aortic aneurysm is present. There is atherosclerotic plaque at the aortic arch and proximal great vessels. No enlarged lymph nodes are identified. Bilateral gynecomastia is seen. Subtle dextroscoliotic curvature and degenerative changes are seen at the spine. No vertebral, displaced rib or sternal fractures are noted. There is obstructive lung disease with airspace lucencies and apical blebs. There is minimal scarring. No consolidation, pleural effusion or pneumothorax is seen. There are multiple tiny scattered punctate 2 mm nodules bilaterally. Limited cuts through the upper abdomen show moderate food debris within the stomach. CT/CT chest wo con IMPRESSION: TINY BILATERAL PULMONARY NODULES. OBSTRUCTIVE LUNG DISEASE. NO ACUTE FINDINGS. Impression dictated by: Yanci Kraft M.D. 10/31/2024 1:16 PM Dictation Location: [employer] Electronically authenticated by: [id number] Y Date: 10/31/2024 13:16
--- OUTSIDE RECORDS SUMMARY | 2024-10-31 12:24 | XMS_ITS | CCD ---
Author Organization [facility] Care Team Providers Care Rn Lactation Consultant Name Role Phone PELON CORTEZ Unavailable Unavailab NEO Romeo Unavailable Unavailable JOSEFINA DAWN (CLAUDIA) Unavailable Unava ilable PELON CORTEZ Unavailable Unavailab PELON Damon Unavailable Unavailab PELON Damon Unavailable Unavailab NOHEMI Hanson Referring Unavailable NOHEMI PHOENIX Primary Care Unavailable UNKNOWN, PROVIDER Attending Unavailable UNKNOWN, PROVIDER Admitting Unavailable MARKER, DR DUNCAN Consulting Unavailable SHAIKH Vale FORD Admitting Unavailable SHAIKH Vale FORD Attending Unavailable LIZETT, DR SONG Primary Care Unavailable LIZETH MOORE Consulting Unavailable SHAIKH Vale FORD Consulting Unavailable ALYSSA YANEZ Consulting Unavailable Nohemi Phoenix MD Unavailable Nohemi Phoenix MD Primary Care Provider NOHEMI PHOENIX Primary Care Physician Yonatan Rosado Attending Unavailable Yonatan Rosado Admitting Unavailable Nohemi Phoenix MD Primary Care Provider Artur Fields MD Attending Provider Yonatan Rosado Admitting Unavailable Yonatan Rosado Attending Unavailable Nohemi Phoenix Primary Care Unavailable Artur Fields Attending UnavailArtur Denney Admitting UnavailArtur Denney Admitting UnavailNohemi Ford Primary Care Unavailable Artur Fields Attending UnavailAMRIT Hamilton Referring Unavailable TAMIKO WEEKS Referring Unavailable TAMIKO WEEKS Referring Unavailable MICKYTAMIKO Piper Referring Unavailable MICKYTAMIKO Piper Referring Unavailable TAMIKO WEEKS Referring Unavailable MICKYTAMIKO Piper Referring Unavailable MICKY, TAMIKO Referring Unavailable MICKY, TAMIKO Referring Unavailable MICKY, TAMIKO Referring Unavailable MICKY, TAMIKO Referring Unavailable MICKY, TAMIKO Referring Unavailable SIAAMRIT Referring Unavailable MOUKARBELASHIA Attending Unavailable SIAAMRIT Referring Unavailable MICKY, TAMIKO Referring Unavailable MICKY, TAMIKO Referring Unavailable MICKY, TAMIKO Referring Unavailable MICKY, TAMIKO Referring Unavailable MICKY, TAMIKO Referring Unavailable MICKY, TAMIKO Referring Unavailable MICKY, TAMIKO Referring Unavailable Nohemi Phoenix MD Unavailable CHEVY HERRERA Attending Unavailable LIZETT, NOHEMI Silva Attending Unavailable MELINA, ZENIA Silva Attending Unavailable MELINA, ZENIA Silva Attending Unavailable DOLCE, YONATAN Cerda Attending Unavailable MELINA, ZENIA Silva Referring Unavailable DOLCE, OYNATAN Cerda Referring Unavailable DOLCE, YONATAN Cerda Attending Unavailable DOLCE, YONATAN Zaida Attending Unavailable DOLCE, YONATAN Cerda Attending Unavailable DOLCE, YONATAN Cerda Attending Unavailable DOLCE, YONATAN Cerda Attending Unavailable DOLCE, YONATAN Cerda Attending Unavailable DOLCE, YONATAN Cerda Attending Unavailable DOLCE, YONATAN Zaida Attending Unavailable DOLCE, CASI Tolbert Attending Unavailable DOLCE, YONATAN Zaida Attending Unavailable DOLCE, YONATAN Zaida Attending Unavailable DOLCE, YONATAN Zaida Attending Unavailable Allergies Allergy Classification Reported Allergen(s) Allergy Type Date of Onset Reaction(s) Facility (20 sources) codeine; Translations: [CODEINE] Drug Allergy 11-10-2011 Nausea Only [facility] Repository (2 sources) atorvastatin; Translations: [ATORVASTATIN] Drug Allergy 12-01-2012 [facility] Repository (20 sources) atorvastatin Drug Allergy 02-10-2014 [facility] Healthcare Medications Current Medications Medication Drug Class(es) Dates Sig (Normalized) Sig (Original) acetaminophen 325 mg / oxyCODONE hydrochloride 5 mg oral tablet (10 sources) Opioid Agonist Start: 01-13-2024 End: 01-23-2024 take 1 tablet by mouth every six hours for pain oxyCODONE-acetami nophen (Percocet) 5-325 MG tablet Indications: Pain Take 1 tablet by mouth every 6 (six) hours if needed for severe pain for up to 5 days 15 tablet 01/18/2024 01/23/2024 Active Start: 01-04-2024 End: 01-09-2024 take 1 tablet by mouth every six hours for pain oxyCODONE-acetaminophen (Percocet) 5-325 MG tablet Indications: Pain Take 1 tablet by mouth every 6 (six) hours if needed for severe pain for up to 5 days 20 tablet 01/04/2024 01/09/2024 [id number] 200 actuat albuterol 0.09 mg/actuat metered dose inhaler (6 sources) beta2-Adrenergic Agonist Start: 03-30-2024 End: 04-21-2025 take 2 puff(s) by inhalation every four hours for wheezing albuterol HFA 90 mcg/act inhaler Indications: Acute bronchitis, unspecified organism INHALE 2 PUFFS EVERY 4 (FOUR) HOURS IF NEEDED FOR WHEEZING OR SHORTNESS OF BREATH. 18 g 3 04/21/2024 04/21/2025 Active amLODIPine 5 mg oral tablet (20 sources) Dihydropyridine Calcium Channel Supa Start: 01-07-2024 take 1 tablet by mouth once daily Amlodipine 5 mg tablet Active 5 MG PO Daily January 07, 2024 12:00am aspirin 81 mg delayed release oral tablet (20 sources) Platelet Aggregation Inhibitor, Nonsteroidal Anti-inflammatory Drug Start: 01-06-2024 take 1 tablet by mouth once daily Aspirin (Adult Aspirin Regimen) 81 mg tablet,delayed release (DR/EC) Active 81 MG PO Daily January 06, 2024 12:00am aspirin (ASPIR) 81 MG EC tablet Indications: Type 2 diabetes mellitus with diabetic autonomic neuropathy, with long-term current use of insulin ([facility]) 1 (one) time each day at the same time. Active azithromycin 250 mg oral tablet (6 sources) Macrolide Antimicrobial Start: 03-30-2024 End: 10-05-2024 azithromycin (Zithromax) 250 MG tablet Indications: Acute bronchitis, unspecified organism 2 tabs x 1 day, then 1 tab x 4 days 6 tablet 03/30/2024 10/05/2024 Discontinued baclofen 10 mg oral tablet (20 sources) gamma-Aminobutyric Acid-ergic Agonist Start: 08-22-2024 take 1 tablet by mouth twice daily as needed for muscle spasms baclofen (Lioresal) 10 MG tablet Indications: Type 2 diabetes mellitus with diabetic autonomic neuropathy, with long-term current use of insulin (HCC) TAKE 1 TABLET (10 MG) BY MOUTH 2 TIMES A DAY NEEDED FOR MUSCLE SPASMS NEEDED 180 tablet 1 08/22/2024 Active Start: 02-25-2024 take 1 tablet by carla th twice daily as needed for muscle spasms baclofen (Lioresal) 10 MG tablet Indications: Type 2 diabetes mellitus with diabetic autonomic neuropathy, with long-term current use of insulin (CMS/HCC) TAKE 1 TABLET (10 MG) BY MOUTH 2 TIMES A DAY NEEDED FOR MUSCLE SPASMS NEEDED 180 tablet 1 02/25/2024 Active Start: 01-06-2024 take 1 tablet by carla th once daily as needed for pain Baclofen 10 mg tablet Active 10 MG PO Daily as needed for pain January 06, 2024 12:00am Start: 08-20-2023 take 1 tablet by carla th twice daily as needed for muscle spasms baclofen (Lioresal) 10 MG tablet Indications: Type 2 diabetes mellitus with diabetic autonomic neuropathy, with long-term current use of insulin (CMS/HCC) TAKE 1 TABLET (10 MG) BY MOUTH 2 TIMES A DAY NEEDED FOR MUSCLE SPASMS NEEDED 180 tablet 1 08/20/2023 Active carvedilol 25 mg oral tablet (20 sources) alpha-Adrenergic Supa, beta-Adrenergic Supa Start: 01-06-2024 take 1 tablet by mouth twice daily Carvedilol 25 mg tablet Active 25 MG PO Twice daily January 06, 2024 12:00am carvedilol (Core g) 25 MG tablet Indications: Primary insomnia every 12 (twelve) hours. Active clopidogrel 75 mg oral tablet (4 sources) [id number] Platelet Inhibitor Start: 04-16-2024 take 1 tablet by mouth once daily clopidogrel (Plavix) 75 MG tablet Take 75 mg by mouth Daily 04/16/2024 Active Continuous Glucose Sensor (FreeStyle [place] 2 Sensor) [facility] [place] sources[place] Start: 09-28-2023 inject 1 dose by subcutaneous injection once Continuous Glucose Sensor (FreeStyle [place]az[place] 2 Sensor[place] [facility] [place]ications: Poorly controlled diabetes mellitus (HCC) Inject 1 each under the skin every 14 (fourteen) days 6 each 3 09/28/2023 Active Start: 09-28-2023 inject 1 dose by sub cutaneous injection once Continuous Glucose Sensor (FreeStyle Shazia 2 Sensor) mis Indications: Poorly controlled diabetes mellitus (CMS/HCC) Inject 1 each under the skin every 14 (fourteen) days 6 each 3 09/28/2023 Active diazePAM 5 mg oral tablet (20 sources) Benzodiazepine Start: 07-29-2023 End: 05-16-2024 take 1 tablet by mouth once daily as needed diazePAM (Valium) 5 MG tablet Indications: Primary insomnia Take 1 tablet (5 mg) by mouth 1 (one) time each day at the same time PRN 30 tablet 05/16/2024 Active empagliflozin 25 mg oral tablet (20 sources) Sodium-Glucose Cotransporter 2 Inhibitor Start: 10-27-2023 End: 05-16-2024 take 1 tablet by mouth in the morning empagliflozin (Jardiance) 25 MG Indications: Type 2 diabetes mellitus with diabetic autonomic neuropathy, with long-term current use of insulin ([facility]) Take 1 tablet (25 mg) by mouth in the morning. 30 tablet 11 05/16/2024 Active ezetimibe 10 mg oral tablet (20 sources) Dietary Cholesterol Absorption Inhibitor Start: 07-29-2023 take 1 tablet by mouth once daily ezetimibe (Zetia) 10 MG tablet Indications: Hypertriglyceridemia Take 1 tablet (10 mg) by mouth Daily 100 tablet 3 07/29/2023 Active Flash Glucose Sensor (Freestyle Shazia 2 Sensor) kit (2 sources) Start: 01-06-2024 Flash Glucose Sensor (Freestyle Shazia 2 Sensor) kit Active EACH .ROUTE .MEDSUPPLY January 06, 2024 12:00am As directed gabapentin 600 mg oral tablet (20 sources) Anti-epileptic Agent Start: 12-16-2023 End: 12-15-2024 take 1 tablet by mouth in the morning, then take 1 tablet by mouth in the evening, then take 1 tablet by mouth at bedtime gabapentin (Neurontin) 600 MG tablet Indications: Diabetic polyneuropathy associated with type 2 diabetes mellitus (HCC) Take 1 tablet (600 mg) by mouth in the morning and 1 tablet (600 mg) in the evening and 1 tablet (600 mg) before bedtime. 270 tablet 3 12/16/2023 12/15/2024 Active Start: 12-15-2023 End: 12-16-2023 take 1 capsule by mouth twice daily gabapentin (Neurontin) 300 MG capsule Indications: Type 2 diabetes mellitus with diabetic autonomic neuropathy, with long-term current use of insulin (CMS/HCC) TAKE 1 CAPSULE BY MOUTH TWICE A DAY 180 capsule 1 12/15/2023 12/16/2023 Discontinued (Ineffective) gabapentin (Neur ontin) 300 MG capsule Indications: Type 2 diabetes mellitus with diabetic autonomic neuropathy, with long-term current use of insulin (CMS/[facility]) 1 capsule every 12 (twelve) hours PRN Active homatropine methylbromide 0.3 mg/ml / HYDROcodone bitartrate 1 mg/ml oral solution (2 sources) Opioid Agonist, Cholinergic Muscarinic Agonist Start: 03-30-2024 End: 04-09-2024 HYDROcodone Bit-Homatrop MBr (Hycodan) 5-1.5 MG/5ML solution Indications: Acute cough Take 5 mL by mouth every 6 (six) hours if needed (cough) for up to 10 days 120 mL 03/30/2024 04/09/2024 Active ibuprofen 800 mg oral tablet (20 sources) Nonsteroidal Anti-inflammatory Drug ibuprofen 800 MG tablet 2 (two) times a day PRN Active Insulin Aspart U-100 (Novolog U-100 Insulin Aspart) 100 unit/mL solution (1 source) Start: 01-06-2024 inject 3 [IU] by subcutaneous injection once before mealtime Insulin Aspart U-100 (Novolog U-100 Insulin Aspart) 100 unit/mL solution Active 3 UNIT SUBCUT 3x/Day before meals January 06, 2024 12:00am 3 ml insulin aspart, human 100 unt/ml pen injector (20 sources) Insulin Analog Start: 05-27-2024 insulin aspart (NovoLOG FLEXPEN) 100 UNIT/ML pen Indications: Type 2 diabetes mellitus with foot ulcer (CODE) ([facility]) INJECT 30 UNITS UNDER THE SKIN IN THE MORNING AND AT NOON AND IN THE EVENING. INJECT BEFORE MEALS. 100 mL 3 05/27/2024 Active Start: 05-16-2024 End: 05-16-2024 insulin aspart (NovoLOG FLEX PEN) 100 UNIT/ML pen Indications: Type 2 diabetes mellitus with foot ulcer (CODE) ([facility]) Inject 30 Units under the skin in the morning and 30 Units at noon and 30 Units in the evening. Inject before meals. 10 mL 05/16/2024 Active Start: 01-20-2024 Insulin Aspart (NovoLOG) 100 UNIT/ML solution Indications: Type 2 diabetes mellitus without complications (CMS/[facility]) Inject 30 Units under the skin in the morning and 30 Units at noon and 30 Units in the evening. Inject before meals. 30 mL 3 01/20/2024 Active Start: 01-06-2024 Insulin Aspart U-100 (Novolog U-100 Insulin Aspart) 100 unit/mL solution Active SUBCUT January 06, 2024 12:00am Start: 03-09-2023 inject 30 [IU] by wheeler bcutaneous injection before mealtime NovoLOG 100 UNIT/ML solution Indications: Type 2 diabetes mellitus without complications (CMS/HCC) INJECT 30 UNITS UNDER THE SKIN BEFORE MEALS 30 mL 3 03/09/2023 Active 3 ml insulin degludec 200 unt/ml pen injector (20 sources) Insulin Analog Start: 09-22-2024 insulin deglud ec (Tresiba FlexTouch) 200 UNIT/ML injection Indications: Type 2 diabetes mellitus without complication, with long-term current use of insulin ([facility]) INJECT 56 UNITS UNDER THE SKIN AT BEDTIME 9 mL 5 09/22/2024 Active Start: 01-06-2024 Insulin Deglud ec (Tresiba Flextouch U-200) 200 unit/mL (3 mL) insulin pen Active UNIT SUBCUT January 06, 2024 12:00am Start: 01-30-2023 insulin deglud ec (Tresiba FlexTouch) 200 UNIT/ML injection Indications: Type 2 diabetes mellitus without complication, with long-term current use of insulin (CMS/HCC) Inject 56 Units under the skin at bedtime 9 mL 5 01/30/2023 Active Insulin Degludec (Tresiba Flextouch U-200) 200 unit/mL (3 mL) insulin pen (1 source) Start: 01-06-2024 Insulin Deglud ec (Tresiba Flextouch U-200) 200 unit/mL (3 mL) insulin pen Active 46 UNIT SUBCUT Every evening January 06, 2024 12:00am lisinopril 40 mg oral tablet (20 sources) Angiotensin Converting Enzyme Inhibitor Start: 01-07-2024 take 1 tablet by mouth once daily Lisinopril 40 mg tablet Active 40 MG PO Daily January 07, 2024 12:00am meclizine hydrochloride 25 mg oral tablet (20 sources) Antiemetic Start: 03-22-2024 take 1 tablet by mouth every four to six hours as needed meclizine (Antivert) 25 MG tablet Indications: Fluid level behind tympanic membrane of left ear 1 tablet as needed Orally every 4-6 hours as needed for 90 days 30 tablet 1 03/22/2024 Active Start: 03-30-2023 take 1 tablet by carla every four to six hours as needed meclizine (Antivert) 25 MG tablet Indications: Fluid level behind tympanic membrane of left ear 1 tablet as needed Orally every 4-6 hours as needed for 90 days 30 tablet 1 03/30/2023 Active omeprazole 20 mg delayed release oral capsule (20 sources) Proton Pump Inhibitor Start: 03-01-2024 take 1 capsule by mouth once daily omeprazole (PriLOSEC) [address] capsule Indications: Gastroesophageal reflux disease without esophagitis TAKE 1 CAPSULE BY MOUTH EVERY DAY AT THE SAME TIME EACH DAY 100 capsule 3 03/01/2024 Active Start: 01-29-2023 take 1 capsule by mo [facility] once daily omeprazole (PriLOSEC) [address] capsule Indications: Gastroesophageal reflux disease without esophagitis Take 1 capsule (20 mg) by mouth 1 (one) time each day at the same time 100 capsule 3 01/29/2023 Active Omeprazole 20 mg capsule,delayed release(DR/EC) (1 source) Start: 01-06-2024 Omeprazole 20 mg capsule,delayed release(DR/EC) Active 20 MG PO January 06, 2024 12:00am predniSONE 10 mg oral tablet (2 sources) Start: 10-05-2024 End: 10-21-2024 take 4 tablets by mouth once daily, then take 3 tablets by mouth once daily, then take 2 tablets by mouth once daily, then take 1 tablet by mouth once daily predniSONE (Deltasone) 10 MG tablet Indications: Intercostal pain Take 4 tablets (40 mg) by mouth Daily for 4 days, THEN 3 tablets (30 mg) Daily for 4 days, THEN 2 tablets (20 mg) Daily for 4 days, THEN 1 tablet (10 mg) Daily for 4 days. 40 tablet 10/05/2024 10/21/2024 Active rosuvastatin calcium 20 mg oral tablet (20 sources) HMG-CoA Reductase Inhibitor Start: 01-06-2024 take 1 tablet by mouth once daily Rosuvastatin 20 mg tablet Active 20 MG PO Daily January 06, 2024 12:00am rosuvastatin (Cr estor) 20 MG tablet Indications: Type 2 diabetes mellitus with diabetic autonomic neuropathy, with long-term current use of insulin (HCC) 1 (one) time each day at the same time. Active sacubitril 24 mg / valsartan 26 mg oral tablet (20 sources) Angiotensin 2 Receptor Supa Start: 08-18-2023 End: 08-12-2024 take 1 tablet by mouth in the morning sacubitril-valsartan (Entresto) 24-26 MG tablet Take 1 tablet by mouth in the morning and 1 tablet in the evening. 08/18/2023 Active sulfamethoxazole 800 mg / trimethoprim 160 mg oral tablet (20 sources) Dihydrofolate Reductase Inhibitor Antibacterial, Sulfonamide Antimicrobial Start: 01-18-2024 End: 01-28-2024 take 1 tablet by mouth once in the morning, then take 1 tablet by mouth once at bedtime, then take 1 tablet by mouth twice daily sulfamethoxazole-trimet hoprim (Bactrim DS) 800-160 MG per tablet Indications: Diabetic Foot Infection Take 1 tablet by mouth in the morning and 1 tablet before bedtime. Do all this for 10 days. TAKE 1 PILL P.O. B.I.D. FOR 10 DAYS. 20 tablet 01/18/2024 01/28/2024 Active Start: 01-04-2024 End: 01-14-2024 take 1 tablet by mouth once in the morning, then take 1 tablet by mouth once at bedtime, then take 1 tablet by mouth twice daily sulfamethoxazole-trimethoprim (Bactrim D S) 800-160 MG per tablet Indications: Diabetic Foot Infection Take 1 tablet by mouth in the morning and 1 tablet before bedtime. Do all this for 10 days. TAKE 1 PILL P.O. B.I.D. FOR 10 DAYS. 20 tablet 01/04/2024 01/14/2024 Start: 12-16-2023 End: 01-02-2024 take 1 tablet by mouth once in the morning, then take 1 tablet by mouth once at bedtime, then take 1 tablet by mouth twice daily sulfamethoxazole-trimethoprim (Bactrim D S) 800-160 MG per tablet Indications: Diabetic Foot Infection Take 1 tablet by mouth in the morning and 1 tablet before bedtime. Do all this for 10 days. TAKE 1 PILL P.O. B.I.D. FOR 10 DAYS. 20 tablet 12/23/2023 01/02/2024 Active tiZANidine 4 mg oral tablet (2 sources) Central alpha-2 Adrenergic Agonist Start: 10-05-2024 End: 10-15-2024 take 1 tablet by mouth every six hours for muscle spasms tiZANidine (Zanaflex) 4 MG tablet Indications: Muscle spasm of back Take 1 tablet (4 mg) by mouth every 6 (six) hours if needed for muscle spasms for up to 10 days 30 tablet 10/05/2024 10/15/2024 Active traMADol hydrochloride 50 mg oral tablet (5 sources) Opioid Agonist Start: 12-23-2023 End: 12-28-2023 take 1 tablet by mouth every six hours for pain traMADol (Ultram) 50 MG tablet Indications: Pain Take 1 tablet (50 mg) by mouth every 6 (six) hours if needed for severe pain or moderate pain for up to 5 days 20 tablet 12/23/2023 12/28/2023 Active Tuberculin Syringe (UltiCare Tuberculin Safety Syr) 25G X 5/8 1 ML misc (20 sources) Start: 09-24-2022 End: 02-19-2024 Tuberculin Syringe (UltiCare Tuberculin Safety Syr) 25G X 5/8 1 ML misc Indications: Type 2 diabetes mellitus with diabetic autonomic neuropathy, with long-term current use of insulin ([facility]) USE DIRECTED 100 each 4 09/24/2022 02/19/2024 Discontinued Start: 09-24-2022 Tuberculin Syr jose alberto (UltiCare Tuberculin Safety Syr) 25G X 5/8 1 ML misc Indications: Type 2 diabetes mellitus with diabetic autonomic neuropathy, with long-term current use of insulin ([facility]/HCC) USE DIRECTED 100 each 4 09/24/2022 Active Problems Active Problems Problem Classification Problem Date Documented Date Episodic/Chronic Acute bronchitis (2 sources) Acute bronchitis; Translations: [Acute bronchitis, unspecified] 03-30-2024 Episodic Alcohol-related disorders (1 source) Alcohol abuse with intoxication, unspecified; Translations: [ALCOHOL ABUSE WITH INTOXICATION UNS] Onset: 10-21-2021 Chronic Allergic reactions (1 source) Allergic contact dermatitis due to plants, except food; Translations: [ALLERG CNT DERMATIT PLANTS NO FOOD] Onset: 10-21-2021 Episodic Cardiac dysrhythmias (20 sources) Ventricular tachycardia; Translations: [Ventricular tachycardia] Onset: 12-31-2011 01-18-2023 Chronic Chronic ulcer of skin (14 sources) Non-pressure chronic ulcer of other part of left foot with necrosis of muscle; Translations: [Ulcer of other part of foot] 12-21-2023 Chronic Coagulation and hemorrhagic disorders (20 sources) Thrombocytopenia, unspecified; Translations: [Thrombocytopenic disorder] Onset: 10-21-2021 09-15-2022 Chronic Conditions associated with dizziness or vertigo (4 sources) Dizziness and giddiness; Translations: [DIZZINESS AND GIDDINESS] Onset: 10-17-2021 Episodic Conduction disorders (20 sources) Presence of cardiac pacemaker; Translations: [Cardiac pacemaker in situ] Onset: 12-09-2012 01-18-2023 Chronic Congestive heart failure; nonhypertensive (20 sources) Congestive heart failure; Translations: [Heart failure, unspecified] Onset: 12-31-2011 01-18-2023 Chronic Coronary atherosclerosis and other heart disease (20 sources) Atherosclerotic heart disease of [place] coronary artery without angina pectoris; Translations: [Coronary atherosclerosis] Onset: 10-21-2021 09-15-2022 Chronic Diabetes mellitus with complications (20 sources) Neuropathy due to diabetes mellitus; Translations: [Type 2 diabetes mellitus with diabetic neuropathy, unspecified] Onset: 05-26-2016 09-15-2022 Chronic Disorders of lipid metabolism (20 sources) Hyperlipidemia, unspecified; Translations: [Hypertriglyceridemia] Onset: 10-21-2021 09-15-2022 Chronic Diverticulosis and diverticulitis (20 sources) Diverticulitis of sigmoid colon; Translations: [Diverticulitis of large intestine without perforation or abscess without bleeding] Onset: 12-09-2011 01-18-2023 Chronic E Codes: Fall (1 source) Unspecified fall, initial encounter; Translations: [UNSPECIFIED FALL INITIAL ENCOUNTER] Onset: 10-21-2021 Episodic E Codes: Unspecified (1 source) Blood alcohol level of 200-239 mg/100 ml; Translations: [BLOOD ALCOHOL LVL 200-239 MG/100 ML] Onset: 10-21-2021 Episodic Esophageal disorders (20 sources) Gastroesophageal reflux disease; Translations: [Gastro-esophageal reflux disease without esophagitis] Onset: 09-15-2022 09-15-2022 Chronic Essential hypertension (3 sources) Essential (primary) hypertension; Translations: [Hypertensive disorder] Onset: 10-21-2021 01-06-2024 Chronic Fluid and electrolyte disorders (1 source) Hypo-osmolality and hyponatremia; Translations: [HYPO-OSMOLALITY AND HYPONATREMIA] Onset: 10-21-2021 Episodic Gangrene (1 source) Atherosclerosis of [place] arteries of extremities with gangrene, left leg; Translations: [Atherosclerosis of [place] arteries of extremities with gangrene, left leg] Onset: 01-07-2024 Chronic Gangrene (20 sources) Gangrenous disorder; Translations: [Gangrene, not elsewhere classified] 01-05-2024 Episodic Heart valve disorders (20 sources) Mitral valve disorder; Translations: [Rheumatic mitral valve disease, unspecified] Onset: 12-17-2011 01-18-2023 Chronic Hypertension with complications and secondary hypertension (20 sources) Hypertensive heart failure; Translations: [Hypertensive heart disease with heart failure] Onset: 07-31-2017 01-18-2023 Chronic Immunity disorders (2 sources) Secondary immune deficiency disorder; Translations: [Immunodeficiency due to conditions classified elsewhere (CMS/[facility])] 12-16-2023 Chronic Immunizations and screening for infectious disease (1 source) Encounter for immunization; Translations: [ENCOUNTER FOR IMMUNIZATION] Onset: 10-21-2021 Episodic Infective arthritis and osteomyelitis (except that caused by tuberculosis or sexually transmitted disease) (8 sources) Acute osteomyelitis of ankle and/or foot; Translations: [Other acute osteomyelitis, left ankle and foot] 12-28-2023 Chronic Miscellaneous mental health disorders (1 source) Primary insomnia; Translations: [Primary insomnia] 05-16-2024 Chronic Nausea and vomiting (1 source) Vomiting, unspecified; Translations: [VOMITING UNSPECIFIED] Onset: 10-21-2021 Episodic Nonspecific chest pain (2 sources) Pain of intercostal space; Translations: [Intercostal pain] 10-05-2024 Episodic Open wounds of extremities (4 sources) Amputated big toe; Translations: [Complete traumatic amputation of left great toe, initial encounter] 02-19-2024 Chronic Other acquired deformities (2 sources) Contracture of joint of left ankle; Translations: [Contracture, left ankle] 12-21-2023 Chronic Other aftercare (1 source) senior living (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; Translations: [HALFWAY CURRENT USE OF ASPIRIN] Onset: 10-21-2021 Episodic Other aftercare (1 source) senior living (current) use of insulin; Translations: [DIRECTOR SURFACE TRANSPORTATION CURRENT USE OF INSULIN] Onset: 10-21-2021 Episodic Other aftercare (1 source) Other terminal 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; Translations: [OTH HALFWAY CURRENT DRUG THERAPY] Onset: 10-21-2021 Episodic Other connective tissue disease (4 sources) Deformity of lower limb; Translations: [Contracture of muscle, left lower leg] 02-19-2024 Episodic Other lower respiratory disease (2 sources) Cough; Translations: [Acute cough] 03-30-2024 Episodic Other male genital disorders (20 sources) Secondary erectile dysfunction; Translations: [Male erectile dysfunction, unspecified] Onset: 09-15-2022 09-15-2022 Chronic Other nutritional; endocrine; and metabolic disorders (1 source) Obesity, unspecified; Translations: [OBESITY UNSPECIFIED] Onset: 10-21-2021 Chronic Other nutritional; endocrine; and metabolic disorders (1 source) Body mass index (BMI) 30.0-30.9, adult; Translations: [BODY MASS INDEX BMI 30.0-30.9 ADULT] Onset: 10-21-2021 Chronic Other nutritional; endocrine; and metabolic disorders (20 sources) Lipoprotein deficiency disorder; Translations: [Lipoprotein deficiency] Onset: 09-15-2022 09-15-2022 Chronic Other screening for suspected conditions (not mental disorders or infectious disease) (1 source) Culture positive for methicillin resistant Staphylococcus aureus Onset: 12-21-2023 12-28-2023 Episodic Comment on above: MRSA+ Left Great toe wound Other skin disorders (4 sources) Callosity; Translations: [Corns and callosities] 12-16-2023 Episodic Other upper respiratory disease (20 sources) Seasonal allergic rhinitis; Translations: [Other seasonal allergic rhinitis] Onset: 09-15-2022 09-15-2022 Chronic Other upper respiratory disease (20 sources) Seasonal allergy; Translations: [Other seasonal allergic rhinitis] Onset: 09-15-2022 09-15-2022 Chronic Peripheral and visceral atherosclerosis (20 sources) Intermittent claudication; Translations: [Peripheral vascular disease, unspecified] Onset: 09-15-2022 09-15-2022 Chronic Skin and subcutaneous tissue infections (8 sources) Infection of toe ; Translations: [Local infection of the skin and subcutaneous tissue, unspecified] 12-16-2023 Episodic Spondylosis; intervertebral disc disorders; other back problems (2 sources) Spasm of back muscles; Translations: [Muscle spasm of back] 10-05-2024 Episodic Substance-related disorders (20 sources) Nicotine dependence, chewing tobacco, uncomplicated; Translations: [Tobacco dependence caused by chewing tobacco] Onset: 10-21-2021 01-18-2023 Chronic Superficial injury; contusion (2 sources) Abrasion of left elbow, initial encounter; Translations: [Contusion of left elbow, initial encounter] Onset: 10-21-2021 Episodic Unclassified (1 source) Pain, unspecified; Translations: [Pain, unspecified] Onset: 03-25-2017 Unclassified (1 source) Unspecified intestinal obstruction, unspecified as to partial versus complete obstruction; Translations: [Unspecified intestinal obstruction, unspecified as to partial versus complete obstruction] Onset: 03-30-2017 Unclassified (1 source) CONTACT W/AND (SUSP) EXPOS COVID-19; Translations: [CONTACT W/AND (SUSP) EXPOS COVID-19] Onset: 10-21-2021 Unclassified (2 sources) 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, left (CMS/HCC) 01-12-2024 Past or Other Problems Problem Classification Problem Date Documented Da te Episodic/Chronic Abdominal pain (20 sources) Abdominal pain; Translations: [Unspecified abdominal pain] Onset: 05-03-2013 01-18-2023 Episodic Biliary tract disease (20 sources) Calculus of gallbladder with cholecystitis; Translations: [Calculus of gallbladder with chronic cholecystitis without obstruction] Onset: 12-31-2011 01-18-2023 Episodic Coronary atherosclerosis and other heart disease (2 sources) Presence of aortocoronary bypass graft; Translations: [Presence of aortocoronary bypass graft] Onset: 11-25-2023 Episodic Diabetes mellitus without complication (20 sources) Type 1 diabetes mellitus without complications; Translations: [Type 2 diabetes mellitus without complication] Onset: 10-21-2021 Resolved: 04-30-2023 04-30-2023 Chronic Genitourinary symptoms and ill-defined conditions (20 sources) Microalbuminuria; Translations: [Proteinuria, unspecified] Onset: 09-15-2022 09-15-2022 Episodic Other gastrointestinal disorders (20 sources) Constipation; Translations: [Constipation, unspecified] Onset: 12-23-2011 01-18-2023 Episodic Other upper respiratory disease (20 sources) Deviated nasal septum; Translations: [Deviated nasal septum] Onset: 10-13-2016 01-18-2023 Episodic Otitis media and related conditions (20 sources) Finding of fluid behind tympanic membrane; Translations: [Unspecified nonsuppurative otitis media, left ear] Onset: 10-13-2016 01-18-2023 Episodic Peritonitis and intestinal abscess (20 sources) Abscess of peritoneum; Translations: [Peritoneal abscess] Onset: 04-22-2012 01-18-2023 Episodic Residual codes; unclassified (20 sources) Insomnia; Translations: [Insomnia, unspecified] Onset: 09-15-2022 09-15-2022 Episodic Residual codes; unclassified (20 sources) History of repair of mitral valve; Translations: [Other specified postprocedural states] Onset: 01-28-2022 01-18-2023 Episodic Residual codes; unclassified (2 sources) Other specified postprocedural states; Translations: [Other specified postprocedural states] Onset: 01-28-2022 Episodic Unclassified (4 sources) PAD (peripheral artery disease) ([facility]) 12-28-2023 Results Test Name Value Interpretation Reference Range Facility Orders Onlyon 07-02-2024 Orders Only [id number] Leida Hou 1965 M Date Provider Department Center 07/02/2024 LISBETH MATHIS [facility] CARD [facility] Family History Family history unknown: Yes Normal [facility] HbA1c (Bld) [Mass fraction]o n 05-16-2024 Interpretation and review of laboratory results Abnormal [facility] POCT glycosylated hemoglobin (Hb A1C) docked deviceon 05-16-2024 HbA1c (Bld) [Mass fraction] 8.9 % [facility] Surgical Pathology Reporton 01-26-2024 Surgical Pathology Report [address] [place] [address]- Surgical Pathology Report Collected Date/Time: 01/18/2024 12:35 EST Pathologist: Sherrie MORALES, Chino Collazo Received Date/Time: 01/18/2024 18:00 EST Pavithra MEZA, Yonatan Rosado DPM, Yonatan Mathews Surgical Pathology Report - 01/26/2024 13:11 EST - Auth (Verified) Final Diagnosis LEFT GREAT TOE, AMPUTATION: COAGULATIVE AND SUPPURATIVE NECROSIS OF DISTAL DIGIT SKIN AND SUBCUTANEOUS SOFT TISSUE; GANGRENE - ASSOCIATED INVOLVEMENT OF UNDERLYING BONE WITH OSTEONECROSIS; OSTEOMYELITIS (Electronic Signature) Chino Balderas MD 01/26/2024 13:11 Clinical Information Left great toe gangrene Pre-Op Diagnosis: Left great toe gangrene Procedure: Amputation of toe metatarsophalangeal joint Post-Op Diagnosis: _ Specimen(s) Received Left great toe Gross Description Received in formalin labeled with patient name, number, and left great toe is a portion of a toe measuring 3.5 x 2.9 cm. On the tip and plantar surface the skin has a dark black/brown scab-like and wet ulceration measuring 3.5 x 2.7 cm. Adjacent to that toward the lateral surface is a benitez thickened round scab-like ulceration measuring 2 x 1.5 cm. The remainder of the skin is benitez/pink, wrinkled, and peeling. Cross-sectioning through the areas of abscess, the deep tissue has a benitez/pink/light green/light yellow necrotic appearance. Market Development Analyst portion is submitted in a total of four cassettes: 1-2 - Skin and soft tissue 3-4 - Bone after decalcification (DC) DC:[facility] Microscopic Description Microscopic examination performed unless gross only specified. Normal [facility] Comment on above: Performed By: #### [id number] #### [facility] [address] [place] [address] US UNI ankle/arm indiceson 1 03-20-2023 US UNI ankle/arm indices [facility] Main [address] [address] Ultrasound Report Signed Patient: Leida Hou MR#: [id number] 4 : 1965 Acct:[id number] Age/Sex: 58 / M ADM Date: 01/19/24 Loc: IR Room: Type: [facility] Attending Dr: Artur Fields MD Ordering Provider: Artur Fields MD Date of Service: 01/19/24 US/US UNI ankle/arm indices: Procedure baseline study, left leg only please Copies to: Artur Fields MD LOWER EXTREMITY SEGMENTAL ARTERIAL DOPSCAN (PVR) INDICATION: New post procedure baseline study after left leg intervention for toe gangrene. PROCEDURE: Right arm blood pressure, left is 140 ,140 . Pressures of the left leg are cno at the ankle using the posterior tibial artery and cno at the ankle using the dorsalis pedis artery with ankle-brachial index of -NC- -NC- . Wave forms by plethysmography are strongly biphasic the dorsalis pedis artery. 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 A significant improvement was identified after intervention. Impression dictated by: Artur Fields MD01/19/2024 2:21 PM [facility] Tech: Princess Berta Transcribed By: RODOLFO 01/19/24 1421 Dictated By: Artur Fields MD 01/19/24 1419 Signed By: 01/19/24 1421 Normal [facility] Blood Urea Nitrogenon 2023 Urea nitrogen [Mass/Vol] 33 mg/dL High 7-25 [facility] Comment on above: Performed By: #### B UN, CREAT #### [facility] [address] [place] [address] [place] Creatinineon 01-07-2024 Creatinine [Mass/Vol] 1.59 mg/dL High 0.70-1.30 [facility] Comment on above: Performed By: #### B UN, CREAT #### [facility] [address] [place] [address] [place] Creatinine Clr Calc Pharmacy 54.23 Normal [facility] Comment on above: Result Comment: PERF ORMED BY: [place] [address] PATHOLOGIST BARREL FILLER RUTH HOGUE M.D. Performed By: #### B UN, CREAT #### [facility] [address] Estimated GFR 49.390 mL/Min Normal [facility] Comment on above: Performed By: #### B UN, CREAT #### [facility] [address] Creatinine (Bld) [Mass/Vol]O rdered By: Artur Fields on 01-07-2024 Creatinine [Mass/Vol] Whole blood creatinine measurement High 0.6-1.3 [facility] Comment on above: ER/ESD physician is notified/shown all ISTAT results.Critical values may be confirmed by laboratory testing ifdeemed necessary by ER attending doctor. Creatinine [Mass/volume] in Serum or PlasmaOrdered By: Artur Fields on 01-07-2024 Creatinine [Mass/Vol] Creatinine [Mass/volume] in Serum or Plasma High 0.70-1.30 [facility] Glucose Glucometer (BldC) [M ass/Vol]Ordered By: Artur Fields on 01-07-2024 Glucose [Mass/Vol] Capillary blood gluc ose measurement by glucometer (mass/volume) [facility] Comment on above: Random Glucose Refer ence Range is dependent on time and content of last meal. Glucose of more than 200 mg/dL in a nonstressed, ambulatory subject supports the diagnosis of Diabetes Mellitus. Glucose Poct Glucometerson 1 03-08-2023 Glucose [Mass/Vol] 172 mg/dL Normal [facility] Comment on above: Result Comment: [place] Glucose Reference Range is dependent on time and content of last meal. Glucose of more than 200 mg/dL in a nonstressed, ambulatory subject supports the diagnosis of Diabetes Mellitus. PERFORMED BY: [facility] [address] [facility] [place] [address] PATHOLOGIST BARREL FILLER RUTH HOGUE M.D. Performed By: #### G GWEN #### Point of Care testing , ISTAT XRay CREon 01-07-2024 Creatinine [Mass/Vol] 1.7 mg/dL High 0.6-1.3 [facility] Comment on above: Result Comment: ER/E SD physician is notified/shown all ISTAT results. Critical values may be confirmed by laboratory testing if deemed necessary by ER attending doctor. Performed By: #### I SCRE #### [facility] [address] ISTAT GFR 45.581 Normal [facility] Comment on above: Result Comment: PERF ORMED BY: [place] [address] PATHOLOGIST BARREL FILLER RUTH HOGUE M.D. Performed By: #### I SCRE #### [facility] [address] [place] [address] No Panel InformationOrdered By: Artur Fields on 01-07-2024 Bedside Estimated GFR (eGFR) 45.581 [facility] Estimated GFR (CKD-EPI) 49.390 mL/Min [facility] Creatinine Clearance (Chem 54.23 [facility] Urea nitrogen [Mass/volume] in Serum or PlasmaOrdered By: Artur Fields on 01-07-2024 Urea nitrogen [Mass/Vol] Urea nitrogen [Mass/volume] in Serum or Plasma High 7-25 [facility] C WOUNDon 12-24-2023 [facility] WOUND CULTURE Microbiology PROCEDURE: Wound Culture [R1] SOURCE: Wound BODY SITE: Toe COLLECTED DATE/TIME: 12/21/2023 10:20 EDT RECEIVED DATE/TIME: 12/21/2023 12:23 EDT START DATE/TIME: 12/21/2023 12:23 EDT FREE TEXT SOURCE: Left great toe Pavithra DPM, Yonatan Rosado DPM, Yonatan Cerda FINAL REPORTS Final Report [] Verified Date/Time: 12/24/2023 10:54 EDT 2+ Methicillin-Resistant Staphylococcus aureus MRSA 2+ Peptostreptococcus species Presumptive 1+ Bacteroides species Presumptive STAINS Gram Stain Report [] Verified Date/Time: 12/22/2023 11:56 EDT 1+ White Blood Cells 1+ Gram Positive Cocci SUSCEPTIBILITY RESULTS LEGEND: S=Susceptible, N/R=Not Reported, Blank=Data not available, or drug not advisable or tested, I=Intermediate, ESBL=Extended spectrum beta-lactamase, R=Resistant, TFG=Thymidine-dependent strain, IVY=Beta-lactamase positive, EDNA=mcg/m;(mg/L), S*=Predicted susceptible interp, R*=Predicted resistant interp MRSA Antibiotic EDNA Dilutn EDNA Interp Amoxicillin/ >4/2 R* Clavulanate Ampicillin >8 R* Ampicillin/ <=8/4 R* Sulbactam Azithromycin >4 R Cefazolin >16 R* Ceftaroline 1 S Ciprofloxacin >2 R Clindamycin >2 R Daptomycin <=1 S Erythromycin >4 R Gentamicin <=4 S Levofloxacin >4 R Linezolid <=2 S Oxacillin >2 R Penicillin >8 R* Rifampin <=1 S Tetracycline <=4 S Trimethoprim/ <=0.5/9.5 S Sulfa Vancomycin 1 S Performing Locations R1: This [facility] performed at: [facility], [address] [place] [address], [phone] , , [facility] Original Ordering Pr ovider: SUSANA Rosado [facility] XR Foot - left 3 [facility] Result: XRAY: Three views were taken today AP/MO/LAT foot: No fractures or dislocations seen No overt signs of osteomyelitis noted of the left great toe joint or proximal phalanx no gas noted in the soft tissue [facility] Radiology Study observation (narrative) [facility] Laboratory - Hematology and Cell countson 12-16-2023 HbA1c (Bld) [Mass fraction] 10 % [facility] No Panel Informationon 12-15 Interpretation and review of laboratory results Abnormal [facility] ALL BASIC METABOLIC PANELon 11-25-2023 Anion gap [Moles/Vol] 12.3 mmol/L [facility] Calcium [Mass/Vol] 9.5 mg/dL 8.5 - 10. 1 mg/dL [facility] Chloride [Moles/Vol] 102 mmol/L 98 - 10 7 mmol/L [facility] CO2 [Moles/Vol] 26.2 mmol/L 21.0 - 32.0 mmol/L [facility] Creatinine [Mass/Vol] 1.34 mg/dL High 0.70 - 1.30 mg/dL [facility] GFR/1.73 sq M.predicted CKD-EPI (S/P/Bld) [Vol rate/Area] >60 >=60 mL/min/1.7 3m 2 [facility] Glucose [Mass/Vol] 380 mg/dL High 74 - 106 mg/dL [facility] Potassium [Moles/Vol] 4.5 mmol/L 3.5 - 5.1 mmol/L [facility] Sodium [Moles/Vol] 136 mmol/L 136 - 145 mmol/L [facility] TBH EGFR-NON AF ALGERIAN 54 Low >=60 mL/min/1.7 3m 2 [facility] Urea nitrogen [Mass/Vol] 23.0 mg/dL High 7.0 - 18.0 mg/dL [facility] Urea nitrogen/Creatinine [Mass ratio] 17.2 mg/mg [facility] ALL LIPID PROFILE (FASTING)o n 11-25-2023 CHOL HDL RATIO 5.3 [facility] Comment on above: 3.3 - 4.4 LOW RISK 4.4 - 7.1 AVERAGE RISK 7.1 - 11.0 MODERATE RISK >11.0 HIGH RISK Cholesterol [Mass/Vol] 181 mg/dL NINF - 200 mg/dL [facility] Cholesterol in HDL [Mass/Vol] 34 mg/dL Low 40 - 60 mg/dL [facility] Comment on above: > or =60 mg/dl - LOW CARDIOVASCULAR RISK <40 mg/dl - HIGH CARDIOVASCULAR RISK Magnesium [Mass/Vol] 88.0 mg/dL [facility] Comment on above: <100 mg/dl OPTIMAL 100-129 mg/dl NEAR OR ABOVE OPTIMAL 130-159 mg/dl BORDERLINE HIGH 160-189 mg/dl HIGH >190 mg/dl VERY HIGH Magnesium [Mass/Vol] 59.8 mg/dL [facility] Triglyceride [Mass/Vol] 299 mg/dL High NINF - 150 mg/dL [facility] No Panel Informationon 11-24 Interpretation and review of laboratory results Abnormal [facility] Office Visiton 11-25-2023 Follow-up visit [id number] Leida Hou 1965 M Date Provider Department Center 11/25/2023 ASHIA SAMPSON [facility] Family History Family history unknown: Yes Level of Service:72866 [place] OFFICE/OUTPATIENT ESTABLISHED MOD MDM 30 MIN Normal [facility] ACETAMINOPHENon 10-17-2021 Acetaminophen [Mass/Vol] ug/mL Normal 10.0-30.0 [facility] Comment on above: Performed By: #### C BC #### [facility] [address] [place] [address] Dr. Prince Sosa CBC AUTO DIFFon 10-17-2021 BASO # 0.0 103/ul Normal 0.0-0.1 [facility] Comment on above: Performed By: #### C BC #### [facility] [address] [place] [address] Dr. Prince Sosa Basophils/100 WBC (Bld) 0.1 % Critically low 0.2-2.0 [facility] Comment on above: Performed By: #### C BC #### [facility] [address] [place] [address] Dr. Prince Sosa EO # 0.2 103/ul Normal 0.0-0.7 [facility] Comment on above: Performed By: #### C BC #### [facility] [address] [place] [address] Dr. Prince Sosa Eosinophils/100 WBC (Bld) 2.1 % Normal 0.9-7.0 [facility] Comment on above: Performed By: #### C BC #### [facility] [address] [place] [address] Dr. Prince Sosa Erythrocyte distribution width (RBC) [Ratio] 13.3 % Normal 11.0-15.0 [facility] Comment on above: Performed By: #### C BC #### [facility] [address] [place] [address] Dr. Prince Sosa Hematocrit (Bld) [Volume fraction] 37.5 % Critically low 42.0-54.0 [facility] Comment on above: Performed By: #### C BC #### [facility] [address] [place] [address] Dr. Prince Sosa Hemoglobin (Bld) [Mass/Vol] 12.9 g/dL Critically low 14.0-18.0 [facility] Comment on above: Performed By: #### C BC #### [facility] [address] [place] [address] Dr. Prince Sosa IG # 0.03 10e3/ul Normal 0.00-0.03 [facility] Comment on above: Performed By: #### C BC #### [facility] [address] [place] [address] Dr. Prince Sosa IG % 0.4 % Normal 0.0-0.5 [facility] Comment on above: Performed By: #### C BC #### [facility] [address] [place] [address] Dr. Prince Sosa LYMPH # 2.3 103/ul Normal 1.2-3.8 [facility] Comment on above: Performed By: #### C BC #### [facility] [address] [place] [address] Dr. Prince Sosa Lymphocytes/100 WBC (Bld) 33.3 % Normal 20.5-60.0 [facility] Comment on above: Performed By: #### C BC #### [facility] [address] [place] [address] Dr. Prince Sosa MANUAL DIFF REQ NO Normal [facility] Comment on above: Performed By: #### C BC #### [facility] [address] [address] [address] Prince Sosa MCH (RBC) [Entitic mass] 29.4 pg Normal 25.9-34.0 [facility] Comment on above: Performed By: #### C BC #### [facility] [address] [place] [address] Dr. Prince Sosa MCHC (RBC) [Mass/Vol] 34.4 g/dL Normal 29.9-35.2 [facility] Comment on above: Performed By: #### C BC #### [facility] [address] [place] [address] Dr. Prince Sosa MCV (RBC) [Entitic vol] 85.4 fL Normal 80.0-94.0 [facility] Comment on above: Performed By: #### C BC #### [facility] [address] [place] [address] Dr. Prince Sosa MONO # 0.6 103/ul Normal 0.3-0.8 [facility] Comment on above: Performed By: #### C BC #### [facility] [address] [place] [address] Dr. Prince Sosa Monocytes/100 WBC (Bld) 8.1 % Normal 1.7-12.0 [facility] Comment on above: Performed By: #### C BC #### [facility] [address] [place] [address] Dr. Prince Sosa NEUT # 3.9 103/ul Normal 1.4-6.5 [facility] Comment on above: Performed By: #### C BC #### [facility] [address] [place] [address] Dr. Prince Soas Neutrophils/100 WBC (Bld) 56.0 % Normal 43.0-75.0 [facility] Comment on above: Performed By: #### C BC #### [facility] [address] [place] [address] Dr. Prince Sosa Platelet mean volume (Bld) [Entitic vol] 10.5 fL Normal 9.5-13.5 [facility] Comment on above: Performed By: #### C BC #### [facility] [address] [address] [address] Prince Sosa PLT 107 103/ul Critically low 150-450 [facility] Comment on above: Performed By: #### C BC #### [facility] [address] [address] [address] Prince Sosa RBC 4.39 106/ul Critically low 4.70-6.10 [facility] Comment on above: Performed By: #### C BC #### [facility] [id number] Prince Sosa WBC 7.0 103/ul Normal 4.0-11.0 [facility] Comment on above: Performed By: #### C BC #### [facility] [address] [address] [address] CSPINE WO CONon 2 CT CSPINE WO CON EXAMINATION: CT CSPI NE WO CON HISTORY: The patient is a 56-year-old male who fell. COMPARISON: None. TECHNIQUE: CT Cervical spine without IV contrast. Coronal and sagittal reformations were performed. Dose reduction techniques were achieved by using automated exposure control and/or adjustment of mA and/or kV according to patient size and/or use of iterative reconstruction technique. FINDINGS: There is an old ununited ossicle just posterior to the C7 spinous process. This could represent an old ununited staci subtle torus fracture. There is a thin longitudinal lucency through the tip of the C6 spinous process, seen on axial image 62 and sagittal image 30. This could represent an acute nondisplaced staci Sharpless fracture, and correlation with tenderness at this site would be helpful. The axial images demonstrate no other fractures or cortical discontinuities throughout the cervical spine. The coronal and sagittal reformatted images demonstrate no other fractures or loss of vertebral body height throughout the cervical spine. There is no malalignment. There is mild to moderate disc space narrowing at all levels between C5 and T1. The soft tissue images demonstrate no evidence of sizable disc herniations or central canal stenosis throughout the cervical spine. IMPRESSION: 1. Possible small acute nondisplaced staci shovelers fracture at the tip of the C6 spinous process. 2. No other fractures or loss of vertebral body height is seen throughout the cervical spine. Electronically authenticated by: LIZETH MOORE Date: 2021-10-17 00:57 Normal [facility] CT HEAD WO CONon 10-17-2021 CT HEAD WO CON NONCONTRAST CT SCAN OF THE HEAD CT HEAD WO CON HISTORY: Altered mental status alcohol intoxication. TECHNIQUE: Multiple axial images are taken from the level the vertex down to the base of the skull without the use of IV contrast. Images were then reconstructed in the sagittal and coronal planes. This exam was performed according to our departmental dose-optimization program which includes use of Automated Exposure Control, adjustment of the mA and/or kV according to patient size and/or use of iterative reconstruction technique. COMPARISON: None. FINDINGS: Brain Parenchyma: No intracranial mass. No intracranial hemorrhage. Gardner-white matter within expected limits of normal for patient's age. Posterior fossa: Normal. Midline shift: None Extra-axial fluid collection: None Ventricles: Normal. Mastoid air cells: Normal. Sinuses: Normal. Cranium: No depressed skull fracture. Soft tissues: Normal. Orbits: Orbits demonstrate postoperative changes from prior cataract resection with prosthetic lens implant. IMPRESSION: 1. No noncontrast CT evidence for acute intracranial pathology. 2. If symptoms continue and if clinically indicated, MRI may help better delineate. Electronically authenticated by: ALYSSA YANEZ Date: 2021-10-17 00:45 Normal [facility]on 09-24 SARS-CoV-2 (COVID-19) RNA CARMEN+probe Ql (Unsp spec) Not detected Normal NOT DETECTED [facility] Comment on above: Result Comment: When diagnostic testing is negative, the possibility of a false negative should be considered in the context of a patient's recent exposures and the presence of clinical signs and symptoms consistent with SARS-CoV-2. This test is not yet approved or cleared by the [place] FDA. When there are no FDA-approved or cleared tests available, and other criteria are met, FDA can make tests available under an emergency access mechanism called an Emergency Use Authorization (EUA). The EUA for this test is supported by the [place] of Health and Human Service's declaration that circumstances exist to justify the emergency use of in vitro diagnostics for the detection and/or diagnosis of the virus that causes COVID-19. This EUA will remain in effect for the duration of the COVID-19 declaration justifying emergency of IVDs, unless it is terminated or revoked by the FDA (after which the test may no longer be used). Performed By: #### C BC #### [facility] [address] [place] [address] Dr. Prince Sosa ETHANOL (BLD ALC)on 10-18-19 22 ALC NOTE NOTE: 80 mg/dl is th e legal limit for a blood alcohol level Normal [facility] Comment on above: Performed By: #### E TH #### [facility] [address] [place] [address] Dr. Prince Sosa Ethanol [Mass/Vol] 170 mg/dL Normal [facility] Comment on above: Performed By: #### E TH #### [facility] [address] [place] [address] Dr. Prince Sosa ALC NOTE NOTE: 80 mg/dl is th e legal limit for a blood alcohol level Normal [facility] Comment on above: Performed By: #### C BC #### [facility] [address] [place] [address] Dr. Prince Sosa Ethanol [Mass/Vol] 201 mg/dL Normal [facility] Comment on above: Performed By: #### C BC #### [facility] [address] [place] [address] Dr. Prince Sosa POINT OF CARE GLUCOSEon 09-24 Glucose [Mass/Vol] 186 mg/dL Critically high 74-106 [facility] Comment on above: Performed By: #### P OCGLUC #### [facility] [address] [place] [address] Dr. Prince Sosa Glucose [Mass/Vol] 220 mg/dL Critically high 74-106 [facility] Comment on above: Performed By: #### C BC #### [facility] [address] [place] [address] Dr. Prince Sosa PROF 14(COMP METB)on 022 Albumin [Mass/Vol] 3.5 g/dL Normal 3.4-5.0 [facility] Comment on above: Performed By: #### S ALYC, HSTROPN, ETH, ACET, CMP #### [facility] [address] [place] [address] Dr. Prince Sosa Albumin/Globulin [Mass ratio] 1.1 {ratio} Normal [facility] Comment on above: Performed By: #### S ALYC, HSTROPN, ETH, ACET, CMP #### [facility] [address] [place] [address] Dr. Prince Sosa ALP [Catalytic activity/Vol] 61 U/L Normal 46-116 [facility] Comment on above: Performed By: #### S ALYC, HSTROPN, ETH, ACET, CMP #### [facility] [address] [place] [address] Dr. Prince Sosa ALT [Catalytic activity/Vol] 33 U/L Normal 16-63 [facility] Comment on above: Performed By: #### S ALYC, HSTROPN, ETH, ACET, CMP #### [facility] [address] [place] [address] Dr. Pirnce Sosa Anion gap [Moles/Vol] 14.7 mmol/L Normal [facility] Comment on above: Performed By: #### S ALYC, HSTROPN, ETH, ACET, CMP #### [facility] [address] [place] [address] Dr. Prince Sosa AST [Catalytic activity/Vol] 23 U/L Normal 15-37 [facility] Comment on above: Performed By: #### S ALYC, HSTROPN, ETH, ACET, CMP #### [facility] [address] [place] [address] Dr. Prince Sosa Bilirubin [Mass/Vol] 0.4 mg/dL Normal 0.2-1.0 [facility] Comment on above: Performed By: #### S ALYC, HSTROPN, ETH, ACET, CMP #### [facility] [address] [place] [address] Dr. Prince Sosa Calcium [Mass/Vol] 8.8 mg/dL Normal 8.5-10.1 [facility] Comment on above: Performed By: #### S ALYC, HSTROPN, ETH, ACET, CMP #### [facility] [address] [address] [address] Prince Sosa Chloride [Moles/Vol] 96 mmol/L Critically low 98-107 [facility] Comment on above: Performed By: #### S ALYC, HSTROPN, ETH, ACET, CMP #### [facility] [address] [address] [address] Prince Sosa CO2 [Moles/Vol] 21.0 mmol/L Normal 21.0-32.0 [facility] Comment on above: Performed By: #### S ALYC, HSTROPN, ETH, ACET, CMP #### [facility] [address] [place] [address] Dr. Prince Sosa Creatinine [Mass/Vol] 1.12 mg/dL Normal 0.70-1.30 [facility] Comment on above: Performed By: #### S ALYC, HSTROPN, ETH, ACET, CMP #### [facility] [address] [place] [address] Dr. Prince Sosa EGFR-AF ALGERIAN >60 Normal >=60 [facility] Comment on above: Performed By: #### S ALYC, HSTROPN, ETH, ACET, CMP #### [facility] [address] [place] [address] Dr. Prince Sosa EGFR-NON AF ALGERIAN >60 Normal >=60 [facility] Comment on above: Performed By: #### S ALYC, HSTROPN, ETH, ACET, CMP #### [facility] [address] [place] [address] Dr. Prince Sosa Globulin (S) [Mass/Vol] 3.3 g/dL Normal [facility] Comment on above: Performed By: #### S ALYC, HSTROPN, ETH, ACET, CMP #### [facility] [address] [place] [address] Dr. Prince Sosa Glucose [Mass/Vol] 222 mg/dL Critically high 74-106 [facility] Comment on above: Performed By: #### S ALYC, HSTROPN, ETH, ACET, CMP #### [facility] [address] [address] [address] Prince Sosa Potassium [Moles/Vol] 3.7 mmol/L Normal 3.5-5.1 [facility] Comment on above: Performed By: #### S ALYC, HSTROPN, ETH, ACET, CMP #### [facility] [address] [address] [address] Prince Sosa Protein [Mass/Vol] 6.8 g/dL Normal 6.4-8.2 [facility] Comment on above: Performed By: #### S ALYC, HSTROPN, ETH, ACET, CMP #### [facility] [address] [place] [address] Dr. Prince Sosa Sodium [Moles/Vol] 128 mmol/L Critically low 136-145 [facility] Comment on above: Performed By: #### S ALYC, HSTROPN, ETH, ACET, CMP #### [facility] [address] [place] [address] Dr. Prince Sosa Urea nitrogen [Mass/Vol] 17.0 mg/dL Normal 7.0-18.0 [facility] Comment on above: Performed By: #### S ALYC, HSTROPN, ETH, ACET, CMP #### [facility] [address] [place] [address] Dr. Prince Sosa Urea nitrogen/Creatinine [Mass ratio] 15.2 mg/mg Normal [facility] Comment on above: Performed By: #### S ALYC, HSTROPN, ETH, ACET, CMP #### [facility] [address] [place] [address] Dr. Prince Sosa PROTIMEon 10-17-2021 INR Coag (PPP) [Relative time] 1.07 {INR} Normal [facility] Comment on above: Performed By: #### C BC #### [facility] [address] [place] [address] Dr. Prince Sosa INR GUIDELINES SEE BELOW Normal [facility] Comment on above: Result Comment: KRISTIAN RED INR: 2.0 - 3.0 CONDITIONS NOT LISTED BELOW 2.5 - 3.5 FOR PROSTHETIC HEART VALVE REPLACEMENT 2.5 - 3.5 RECURRENT THROMBOSIS Performed By: #### C BC #### [facility] [address] [place] [address] Dr. Prince Sosa PT Coag (PPP) [Time] 11.5 s Normal 9.0-11.6 [facility] Comment on above: Performed By: #### C BC #### [facility] [address] [address] [address] Prince Sosa PTTon 10-17-2021 aPTT Coag (Bld) [Time] 25.5 s Normal 22.3-36.2 [facility] Comment on above: Performed By: #### C BC #### [facility] [address] [place] [address] Dr. Prince Sosa SALICYLATEon 10-17-2021 SALICYLATE 0.7 mg/dL Normal <=19.9 [facility] Comment on above: Performed By: #### S ALYC, HSTROPN, ETH, ACET, CMP #### [facility] [address] [address] [address] Prince Sosa TROPONIN, HIGH SENSITIVITYon 10-17-2021 HSTROP 33.2 pg/mL Normal 4.0-76.1 [facility] Comment on above: Result Comment: CUT- OFF POINTS HAVE BEEN ESTABLISHED BASED ON THE FOURTH UNIVERSAL DEFINITIONS OF MYOCARDIAL INFARCTION. THE UPPER REFERENCE LIMIT (URL) OF TROPONIN, DEFINED THE 99TH PERCENTILE OF cTnI DISTRIBUTION IN A REFERENCE POPULATION, HAS BEEN CONFIRMED THE DECISION THRESHOLD FOR MO DIAGNOSIS. Performed By: #### C BC #### [facility] [address] [place] [address] Dr. Prince Sosa XR CHEST 1 Von 10-17-2021 XR CHEST 1 V CHEST X-RAY HISTORY: Chest pain COMPARISON: 11/21/2011 TECHNIQUE: 1 view chest is submitted for review. FINDINGS: Mediastinal wires are aligned and intact with stable postoperative changes. Cardiac pacer has been placed. No pneumothorax or limitation of the clavicle position. The lungs are hyperexpanded. No acute infiltrate or effusion. The cardiac silhouette is enlarged.. Pulmonary vascularity is unremarkable. Osseous structures are within expected limits for patients age. . IMPRESSION: 1. Cardiomegaly. 2. Cardiac pacer without pneumothorax. Electronically authenticated by: ALYSSA YANEZ Date: 2021-10-17 00:57 Normal [facility] XR ELBOW LT MIN 3 VIEWSon XR ELBOW LT MIN 3 VIEWS EXAM: XR ELBOW LT MIN 3 VIEWS HISTORY: The patient is a 56-year-old male with left elbow swelling. COMPARISON: None. FINDINGS: The left elbow joint is radiographically negative with no evidence of fracture, dislocation, fat pad elevation, or other osseous or articular abnormalities. IMPRESSION: Negative. Electronically authenticated by: LIZETH MOORE Date: 2021-10-17 00:47 Normal [facility] XR PELVIS 1_2 VIEWSon 2021 XR PELVIS 1_2 VIEWS EXAM: XR PELVIS 1_2 VIEWS HISTORY: The patient is a 56-year-old male who fell. COMPARISON: None. FINDINGS: No displaced fractures or cortical discontinuities are seen within either proximal femur or elsewhere throughout the bony pelvis on this single AP view. The widths and alignment of both hip joints are maintained. The sacroiliac joints are maintained. The pubic symphysis is maintained. IMPRESSION: No displaced fractures seen. Electronically authenticated by: LIZETH MOORE Date: 2021-10-17 00:48 Normal [facility] Cardiovascular Lab Reporton 10-19-2020 Cardiovascular Lab Report [facility] Patient Name: Leida Hou [facility] MR #: [id number] Physician: Ashia Monsivais Department of [facility] Date: 10/18/2020 Division of Birthdate: 1965 Cardiology Room #: [facility] Cardiovascular Services [place] [address] Cardiovascular Laboratory Report INDICATION: The patient is a 55-year-old man with prior history of coronary artery disease and ischemic cardiomyopathy, status post bypass surgery and mitral repair in the past. He has systolic heart failure, status post ICD placement. He was evaluated in Cardiology Clinic recently because of recurrent episodes of nonsustained ventricular tachycardia detected on the ICD interrogation. Because of that, he was referred for cardiac catheterization. PROCEDURES: 1. Right heart catheterization. 2. Bilateral selective coronary angiography. 3. Bypass graft angiography. 4. Limited right common femoral angiography. 5. Access into the right common femoral artery and vein under ultrasound guidance. METHODS: Procedure was explained to the patient with risks and benefits. He signed the informed consent. He was brought to r&d lab technician in a fasting state. The right groin area was prepped and draped in usual fashion. Micropuncture technique and ultrasound guidance was used to gain access in the right common femoral artery. Inner cannula angiography was performed followed by abandoning of this access due to low location. Manual compression was applied for hemostasis. Access was repeated at a higher location. Inner cannula angiography showed adequate access. Therefore, this was upsized to a 6-Slovak x 11 cm sheath. Access was obtained using same technique in the right common femoral vein and a 6-Slovak x 11 cm sheath was placed. A 6-Slovak Martinze catheter was used for right heart catheterization with measurement of pressures and calculation of cardiac output using the estimated Emmanuel method. Martinez catheter was removed. Bilateral selective coronary angiography was then performed using 6-Slovak JL4 and JR4 diagnostic catheters. Catheters were removed. The 6-Slovak JR4 diagnostic catheter was used to selectively engage the saphenous venous graft to the diagonal 1 and the radial graft to the OM1 and a 6-Slovak AR2 diagnostic catheter was used to selectively engage the saphenous venous graft to the PDA. Catheters were removed. A 6-Slovak TEAGAN catheter was used to selectively engage the left subclavian artery and then selectively engage the left internal mammary artery. Angiography was performed. Catheter was removed. Procedure was concluded. Manual compression was applied for hemostasis in the right common femoral artery and vein. He tolerated the procedure well. He will be observed for 5-6 hours and then discharged to home. TOTAL FLUORO TIME: 17.35 minutes. TOTAL AIR KERMA: 837 mGy. TOTAL CONTRAST VOLUME: 70 mL. TOTAL SEDATION TIME: 74 minutes. HEMODYNAMICS: RA 7. RV 40/4, 9. PA 38/19, mean 26. Pulmonary capillary wedge pressure 16. AO 146/75, mean 98. Cardiac output 5.3, cardiac index 2.48. PA sat 65%, AO sat 94%. CORONARY ANGIOGRAPHY: This is a right dominant circulation. Left main: This arises from the left coronary cusp. It bifurcates into left anterior descending and circumflex vessels. Left main is 100% occluded at its distal segment. Left anterior descending: This is occluded in its ostium. The first diagonal branch is seen filling via patent saphenous venous graft. The 2nd diagonal branch is seen filling via a patent CARRERO graft and this retrogradely fills the mid to distal LAD. Circumflex vessel: This is 100% occluded at its ostium. The first obtuse marginal branch is seen filling via a patent radial graft. There is retrograde slight filling of the proximal segment of that obtuse marginal branch and [id number] collateral circulation filling the second obtuse marginal branch. Right coronary artery: This arises from the right coronary cusp. It is a large and dominant vessel. It is heavily calcific throughout its course. It is occluded in its ostial segment. The distal RCA, PDA, and PLV branches are seen filling via patent saphenous venous graft. BYPASS GRAFT ANGIOGRAPHY: 1. CARRERO to diagonal 2 and sequential to distal LAD, this graft is patent to the diagonal 2 level and the limb to the LAD is occluded. The graft fills the 2nd diagonal branch. There is disease reaching up to 60% proximal to the anastomosis with the diagonal 2 and this graft fills the distal LAD retrogradely through the diagonal branch. 2. Saphenous venous graft to diagonal branch #1. This graft is widely patent. 3. Radial graft to the OM1. This graft is widely patent. 4. Saphenous venous graft to the PDA. This graft is very large and widely patent. SUMMARY OF THE FINDINGS: 1. Severe 3-vessel (more content not included)... Normal [facility] PROGRESSon 04-07-2017 PROGRESS HNO ID: [id number] thor: Josefina Ware (Claudia) Sameer: (none)Author Type: Physician AssistantType: Progress NotesFiled: 04/07/2017 2:51 PMNote Text:Post Op Visit:Mr. Hou is a 51 year old male who is s/p a sigmoid colectomy, smallbowel resection x2, and appendectomy on03/[address] Cortez. He presentstoday for a follow up visit.Pathology from surgery was reviewed with the patient, results as follows:1. Portion of sigmoid colon, excision - Segments of colon with chronicactive inflammation and inflamed granulation tissue.2. Appendix, excision - Appendix with diverticular disease, acuteserositis, and fibrous adhesions.3. Small bowel, segmental resection - Patchy chromic active enteritiswith ulcer, pyloric gland metaplasia, fibroinflammatory adhesions, andperienteric abscess with fistula formation4. Sigmoid colon, resection- Diverticular disease with patchy chronic inflammation, hemosiderin-ladenmacrophages , acute serositis, and fibrous adhesions.- Benign lymph nodes.Review of systems:General: is doing very well. He is fatigued but overall hisenergy is improving. He denies fevers, chills, SOBPain Control: His pain is under control with Tylenol as neededDiet: He is tolerating a diet without nausea or vomitingBowel Function: He is having regular bowel functionPhysical Exam:BP 121/76 Pulse 85 Temp 36.4 ?C (97.5 ?F)GENERAL: Alert, no distress, cooperativeABDOMEN: Abdomen soft, non-tender, non-distended, incisions are wellapproximated without erythema or edema. [place] removed intact withoutcomplication and steri strips appliedALLERGIESAllergen Reactions- Codeine Other: See Comments Pt. States causes nauseaImpression and Plan:51 year old male s/p a sigmoid colectomy, small bowel resection x2, andappendectomy on03/25.-Diet advancement and activit were discussed in detail. Follow up with in 3 months, this appointment was made todayCLAUDIA Rangel-CFebruary 20171:54 PM Normal [facility] Basic Metabolic Panlon 03-30 Anion gap 11 mmol/L Normal 9-18 [facility] Comment on above: Performed By: #### T SCR ####[id number] [place], [place] [phone] Calcium 8.7 mg/dL Normal 8.5-10.5 [facility] Comment on above: Performed By: #### T SCR ####[id number] [place] [id number] Chloride 101 mmol/L Normal 98-110 [facility] Comment on above: Performed By: #### T SCR ####[facility] [phone] CO2 27 mmol/L Normal 23-32 [facility] Comment on above: Performed By: #### T SCR ####[address] [id number] Creatinine 0.90 mg/dL Normal 0.70-1.40 [facility] Comment on above: Performed By: #### T SCR ####[address] [id number] eGFR (non-black) mL/min/{1.73_m2} Normal >60 [facility] Comment on above: Performed By: #### T SCR ####[address] [id number] Glucose mass conc 110 mg/dL High 65-100 [facility] Comment on above: Performed By: #### T SCR ####[address] [id number] Potassium molar conc 4.7 mmol/L Normal 3.5-5.0 [facility] Comment on above: Performed By: #### T SCR ####[address] Sodium 139 mmol/L Normal 135-146 [facility] Comment on above: Performed By: #### T SCR ####[address] [id number] Urea nitrogen 13 mg/dL Normal 10-25 [facility] Comment on above: Performed By: #### T SCR ####[address] [place] [phone] CBC and Differentialon 03-30 Abs Baso <0.03 Normal <0.11 [facility] Comment on above: Performed By: #### T SCR ####[address] [id number] Abs Stonewall 0.39 k/uL Normal <0.87 [facility] Comment on above: Performed By: #### T SCR ####[address] [id number] Abs Neut 3.18 k/uL Normal 1.45-7.50 [facility] Comment on above: Performed By: #### T SCR ####[address] [id number] Basophils/100 WBC Auto (Bld) 0.2 % Normal [facility] Comment on above: Performed By: #### T SCR ####[address] [id number] DTYPE Auto Diff Normal [facility] Comment on above: Performed By: #### T SCR ####[address] [id number] Eosinophils 0.21 10*3/uL Normal <0.46 [facility] Comment on above: Performed By: #### T SCR ####[address] [id number] Eosinophils/100 leukocytes 4.3 % Normal [facility] Comment on above: Performed By: #### T SCR ####[address] [id number] Erythrocyte distribution width Auto Ratio (RBC) 13.9 % Normal 11.5-15.0 [facility] Comment on above: Performed By: #### T SCR ####[address] [id number] Erythrocytes (RBC) 3.33 10*6/uL Low 4.20-6.00 [facility] Comment on above: Performed By: #### T SCR ####[address] [id number] Hematocrit (HCT) 28.2 % Low 39.0-51.0 [facility] Comment on above: Performed By: #### T SCR ####[address] [phone] Hemoglobin mass conc (Bld) 9.6 g/dL Low 13.0-17.0 [facility] Comment on above: Performed By: #### T SCR ####[address] [id number] Lymphocytes 1.09 10*3/uL Normal 1.00-4.00 [facility] Comment on above: Performed By: #### T SCR ####[address] [phone] Lymphocytes/100 leukocytes 22.3 % Normal [facility] Comment on above: Performed By: #### T SCR ####[address] [phone] MCH 28.8 pG Normal 26.0-34.0 [facility] Comment on above: Performed By: #### T SCR ####[address] [phone] MCHC mass conc (RBC) 34.0 g/dL Normal 30.5-36.0 [facility] Comment on above: Performed By: #### T SCR ####[address] [place] [phone] MCV 84.7 fL Normal 80.0-100.0 [facility] Comment on above: Performed By: #### T SCR ####[address] [phone] Monocytes/100 leukocytes 8.0 % Normal [facility] Comment on above: Performed By: #### T SCR ####[address] [phone] Neutrophils/100 WBC Auto (Bld) 65.2 % Normal [facility] Comment on above: Performed By: #### T SCR ####[address] [place] [phone] Platelet mean volume (PMV) 10.3 fL Normal 9.0-12.7 [facility] Comment on above: Performed By: #### T SCR ####[place] [phone] Platelets 115 10*3/uL Low 150-400 [facility] Comment on above: Performed By: #### T SCR ####[place] [phone] WBC (Leukocytes) 4.88 10*3/uL Normal 3.70-11.00 [facility] Comment on above: Performed By: #### T SCR ####[facility] [place], [place] [phone] CNDSon 03-30-2017 CNDS HNO ID: [id number] thor: Josefina Ware (Claudia) MiglionicoService: ColorectalAuthor Type: Physician AssistantType: Discharge SummariesFiled: 03/30/2017 2:21 PMNote Text:DISCHARGE SUMMARYPATIENT NAME: Leida Hou ADMISSION DATE: 03/25/2017MRN: [id number] DISCHARGE DATE: 03/30/2017ATTENDING PHYSICIAN: Pelon Nguyen FOR HOSPITALIZATION: Scheduled SurgeryDIAGNOSIS: Diverticulitis with a bowel obstructionOPERATIONS DURING HOSPITALIZATION: Sigmoid colectomy, small bowelresection x2, and appendectomyPROCEDURES DURING HOSPITALIZATION: Intubation for surgeryHOSPITAL COURSE:Mr. Hou was admitted following the above described operation, which wasperformed without complication. Post operatively he was admitted to [facility] nursing floor for further recovery. He was encouraged to ambulateto minimize his risk for developing a DVT, and to promote bowel function.His lake was left in place until POD3 due to the low pelvic dissectiondone in surgery, once removed he was able to void without complication.His diet was slowly advanced as he experienced return of normal bowelfunction. His medications were converted to oral and tolerated. Hedeveloped post operative blood loss anemia, and received a RBC transfusionwhich he responded well to.On March 30, 2017 his vital signs were normal, he had satisfactorytoleration of a PO diet, and adequate pain control on oral medications.He will follow up in clinic for staple removal.LABS AND PROCEDURES PENDING AT DISCHARGE: Surgical PathologyCONSULTING TEAMS DURING HOSPITALIZATION: NonePATIENT CONDITION AT DISCHARGE: StableDISCHARGE DISPOSITION: Home/Self CareINFORMATION PROVIDED TO PATIENT:Home Going Instructions After an Abdominal OperationSymptoms or health problems to watch for after I leave the hospital:-Increasing abdominal pain or fkumyzps-Hzzfdipx-Uadn or no urine-Fever greater than 101.5?F (38.6?C) or chills-Unable to take in liquids or solid foods for greater than 24 hours-Shortness of breath-Chest pain-Racing heartbeat-Difficulty urinating-Bloody, dark, or tarry stool from rectumFor these or any other concerning symptom, please call immediately foradvice1. Diet: A restricted diet should be followed for the first 2-4 weeks(please refer below for recommendations). You might initially try sixsmall meals. A dietitian will provide special instructions if you have anileostomy. After the first 2-4 weeks of diet restrictions, you may resumea normal diet by adding one new food at a time.Acceptable FoodsBread and butterCanned applesauceCanned peaches or pearsFishMashed potatoesMeats without skin casingWell-cooked vegetablesUnacceptable Foods*Bran cereals, nuts, popcorn, or seedsCanned pineapple or fruit cocktailCarbonated drinksDried fruit or coconutMushrooms or cornRaw fruit (except bananas)Raw vegetables*Any food not chewable to mashed potato consistency.2. Alcohol: Alcoholic beverages, in moderation, are acceptable, butshould be avoided while using narcotics.3. Activity: Walking is encouraged, and climbing stairs is acceptable,but strenuous activity (e.g., lifting objects weighing over 15 lbs,sit-ups, press-ups) should be avoided for 4-6 weeks after open surgery or2-4 weeks after laparoscopic surgery.4. Driving: Do not drive a vehicle for two weeks after surgery or whiletaking narcotics. When you return to driving, do not go alone the firsttime.5. Wound care: Unless otherwise instructed, leave incisions uncovered.You may daily shower, and afterwards gently dry the wound.6. Medications: These should be taken as instructed by your surgeonincluding:Pain medications: Tylenol, Vicodin, Oxycodone, or Percocet.Prior medications: Resume these medications unless otherwise instructed.Stool Softeners, if needed:Darshana-colace should be taken 2 times per dailyto have 1 - 2 soft bowel movements per day. This may be increased ordecreased to have soft bowel movements. Milk of Magnesia should be takenif no bowel movement in 2 days.7. Bowel function: Bowel function initially tends to be erratic (gas,diarrhea, seepage, or cramps; good and bad days), but gradually improvesover the first 6 months as your body adjusts to the surgical changes.Foods that worsen your function should be avoided.8. Andre: If you have andre, these should be removed within 10-14days after surgery. You can do this by 1 of 3 ways. 1.) By schedulinganother appointment in our office. 2.) Having home care if availableremove them. Or 3.) By having your primary care physician remove them intheir office.9. Potential problems:-Bowel obstruction or ileus: If you experience persistent abdominalcramps, bloating, nausea, vomiting, or constipation, this may indicate anobstruction or ileus. If the symptoms are mild, you may restrict dietaryintake to only liquids and avoid solid food. If the symptoms are severe orpersist beyond 24 hours, you must call your surgeon for advice.-Dehydration: You should daily drink at least 8 glasses of liquids toavoid dehydration that can cause decreased urine output or dark urine.-Surgical infection: Fever, especially if associated with an ill feeling,abdominal discomfort, chills, or nausea should be reported to yoursurgeon.Wound infection: Excessive swelling, redness, drainage, or severe painaround the incision should be reported to your surgeon.10. Office visits: Your follow up appointment for staple removal is listedbelow, the office is located at:[address] [phone]-[facility] first [facility]between the security office and the [facility]-up appointment reminders:Future AppointmentsDate Time Provider Department Center04/07/2017 1:40 PM [id number]-EVIPNDIISOJOSEFINA DAWN (CLAUDIA) [id number] CORTEZ MCDISCHARGE MEDICATION:Current Discharge Medication ListSTART taking these medicationsoxyCODONE IR (ROXICODONE) 5 mgTake 5 mg by mouth every 6 hours as needed for Pain.Earliest Fill Date: 03/30/17Qty: 20 tablet Refills: 0Associated Diagnoses:Acute painacetaminophen (TYLENOL) 650 mgTake 650 mg by mouth every 6 hours as needed for Pain.ibuprofen (MOTRIN) 600 mgTake 600 mg by mouth every 8 hours as needed for Pain.CONTINUE these medications which have NOT CHANGEDinsulin glargine (LANTUS) 42 UnitsInject 42 Units subcutaneously every morning.carvedilol (COREG) 25 mgTake 25 mg by mouth twice daily with meals.Associated Diagnoses:SBO (small bowel obstruction); Diverticulosis oflarge intestine without hemorrhage; Preoperative examinationlisinopril (ZESTRIL, PRINIVIL) 10 mgTake 10 mg by mouth once daily.Associated Diagnoses:SBO (small bowel obstruction); Diverticulosis oflarge intestine without hemorrhage; Preoperative examinationrosuvastatin (CRESTOR) 20 mgTake 20 mg by mouth once daily.Associated Diagnoses:SBO (small bowel obstruction); Diverticulosis oflarge intestine without hemorrhage; Preoperative examinationomeprazole (PriLOSEC) 20 mgTake 20 mg by mouth once daily.Associated Diagnoses:SBO (small bowel obstruction); Diverticulosis oflarge intestine without hemorrhage; Preoperative examinationdocusate sodium (COLACE) 100 mgTake 100 mg by mouth twice daily.Associated Diagnoses:SBO (small bowel obstruction); Diverticulosis oflarge intestine without hemorrhage; Preoperative examinationaspirin, enteric coated (ASPIRIN, ENTERIC COATED) 81 mgTake 81 mg by mouth once daily.Associated Diagnoses:SBO (small bowel obstruction); Diverticulosis oflarge intestine without hemorrhage; Preoperative examinationTIME OF CARE (Use first blank if not applicable):SIGNATURE: Josefina Dawn PA-C PATIENT NAME: Leida HouDATE: March 30, 2017 : 2:11 PM PAGER/CONTACT #: [phone] Normal [facility] Magnesiumon 03-30-2017 Magnesium 2.3 mg/dL Normal 1.7-2.6 [facility] Comment on above: Result Comment: Revi ewed Performed By: #### T SCR ####[facility] [place], [place] [phone] PLAN OF CAREon 03-30-2017 PLAN OF CARE HNO ID: [id number] thor: Coral Bassett (Energy Trading Analyst)Service: (none)Author Type: TechnicianType: Plan of CareFiled: 04/01/2017 10:33 AMNote Text:[employer]DER BEDSIDE DELIVERY SURVEY1. Patient to use [facility] Bedside Delivery - YES2. If fax, patient would like us to fax prescriptions to [facility] a. Pharmacy: b. Location: c. Phone:3. Insurance card on file - YES4. Credit card for payment - N/A [facility] PLAN OF CARE HNO ID: [id number] thor: Jennifer Corea (Pharmacist)Service: PharmacyAuthor Type: PharmacistType: Plan of CareFiled: 03/30/2017 10:22 AMNote Text:DISCHARGE MEDICATION REVIEW BY PHARMACYPatient Name: Leida Hou : [id number] Admission Date: 03/25/2017Date of Contact: March 30, 2017 Time of Contact: 10:21 AMMedication list was reviewed by a Pharmacist for drug interactions or drugrelated problems:Jaime Corea, PharmacistFebruary 2017 10:21 AMMedication ListSTART taking these medications acetaminophen 325 mg tabletCommonly known as: TYLENOLTake 2 tablets by mouth every 6 hours as needed for Pain. ibuprofen 600 mg tabletCommonly known as: MOTRINTake 1 tablet by mouth every 8 hours as needed for Pain. oxyCODONE IR 5 mg immediate release tabletCommonly known as: ROXICODONETake 1 tablet by mouth every 6 hours as needed for Pain for up to 5 days.Earliest Fill Date: 03/30/17CONTINUE taking these medications aspirin, enteric coated 81 mg EC tabletCommonly known as: ASPIRIN, ENTERIC COATED COREG 25 mg tabletGeneric drug: carvedilol insulin glargine 100 unit/mL injectionCommonly known as: LANTUS lisinopril 10 mg tabletCommonly known as: ZESTRIL, PRINIVIL omeprazole 20 mg capsuleCommonly known as: PriLOSEC rosuvastatin 20 mg tabletCommonly known as: CRESTOR STOOL SOFTENER 100 mg capsuleGeneric drug: docusate sodiumWhere to Get Your MedicationsInformation about where to get these medications is not yet available ! 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 Hgb stable, afebrile, noleukocytosis, tolerating diet, +BM.OBJECTIVE:BP 149/77 Pulse 78 Temp 36.8 ?C (98.3 ?F) (Oral) Resp 18 Ht 182.9cm (6') Wt 82.3 kg (181 lb 7 oz) SpO2 97% BMI 24.61 kg/l8CJEBEAX: alert, NADLUNGS: breathing comfortablyABDOMEN: soft, incision c/d/iEXTREMITIES: well perfused and warmDate 03/29/17 0700 - 03/30/17 0659 03/30/17 0700 - 03/31/17 0659Shift 3632-2049 0311-7682 6902-9434 24 Hour Total 7040-5781 7808-36221327-6095 24 Hour TotalINTAKE PO 340 340 PO 340 340 IV 1163 1163 D5 0.45%NS 1163 1163 Shift Total 1503 1503OUTPUT Urine 500 200 700 Void (ml) 500 200 700 # of BMs Number of BMs 1 x 1 x Stool 130 200 330 Liquid BM (mL) 130 200 330 Shift Total 630 400 1030Weight (kg) 84.2 84.2 82.3 82.3 82.3 82.3 82.3 82.3Recent Labs 03/29/1803WBC 4.88 4.55 -- 5.29HB 9.6* 9.2* 9.0* 7.4*HCT 28.2* 26.2* 26.6* 21.9*PLT 115* 90* -- 87*NA 139 138 -- 139K 4.7 4.0 -- 4.9CHLOR 101 101 -- 103CO2 27 26 -- 26CREAT 0.90 0.83 -- 0.89BUN 13 12 -- 21GLUC 110* 132* -- 171*P 3.0 2.2* -- 2.2*MG 2.3 1.6* -- 2.0CA 8.7 8.5 -- 8.6Robert Grayson, [facility], [id number] Normal [facility] Phosphoruson 03-30-2017 Phosphate 3.0 mg/dL Normal 2.5-4.5 [facility] Comment on above: Performed By: #### T SCR ####[place] [phone] Basic Metabolic Panlon 03-29 Anion gap 11 mmol/L Normal 9-18 [facility] Comment on above: Performed By: #### C ONABO ####[place] [phone] Calcium 8.5 mg/dL Normal 8.5-10.5 [facility] Comment on above: Performed By: #### C ONABO ####[address]10 Chloride 101 mmol/L Normal 98-110 [facility] Comment on above: Performed By: #### C ONABO ####[place] [phone] CO2 26 mmol/L Normal 23-32 [facility] Comment on above: Performed By: #### C ONABO ####[place] [phone] Creatinine 0.83 mg/dL Normal 0.70-1.40 [facility] Comment on above: Performed By: #### C ONABO ####[place] [phone] eGFR (non-black) mL/min/{1.73_m2} Normal >60 [facility] Comment on above: Performed By: #### C ONABO ####[place] [phone] Glucose mass conc 132 mg/dL High 65-100 [facility] Comment on above: Performed By: #### C ONABO ####[place] [phone] Potassium molar conc 4.0 mmol/L Normal 3.5-5.0 [facility] Comment on above: Performed By: #### C ONABO ####[place] [phone] Sodium 138 mmol/L Normal 135-146 [facility] Comment on above: Performed By: #### C ONABO ####[place] [phone] Urea nitrogen 12 mg/dL Normal 10-25 [facility] Comment on above: Performed By: #### C ONABO ####[place] [phone] CBC and Differentialon 03-29 Abs Baso <0.03 Normal <0.11 [facility] Comment on above: Performed By: #### C ONABO ####[place] [phone] Abs Stonewall 0.30 k/uL Normal <0.87 [facility] Comment on above: Performed By: #### C ONABO ####[place] [phone] Abs Neut 3.02 k/uL Normal 1.45-7.50 [facility] Comment on above: Performed By: #### C ONABO ####[place] [phone] Basophils/100 WBC Auto (Bld) 0.0 % Normal [facility] Comment on above: Performed By: #### C ONABO ####[place] [phone] DTYPE Auto Diff Normal [facility] Comment on above: Performed By: #### C ONABO ####[place] [phone] Eosinophils 0.15 10*3/uL Normal <0.46 [facility] Comment on above: Performed By: #### C ONABO ####[place] [phone] Eosinophils/100 leukocytes 3.3 % Normal [facility] Comment on above: Performed By: #### C ONABO ####[place] [phone] Erythrocyte distribution width Auto Ratio (RBC) 13.9 % Normal 11.5-15.0 [facility] Comment on above: Performed By: #### C ONABO ####[place] [phone] Erythrocytes (RBC) 3.13 10*6/uL Low 4.20-6.00 [facility] Comment on above: Performed By: #### C ONABO ####[place] [phone] Hematocrit (HCT) 26.2 % Low 39.0-51.0 [facility] Comment on above: Performed By: #### C ONABO ####[place] [phone] Hemoglobin mass conc (Bld) 9.2 g/dL Low 13.0-17.0 [facility] Comment on above: Performed By: #### C ONABO ####[place] [phone] Lymphocytes 1.08 10*3/uL Normal 1.00-4.00 [facility] Comment on above: Performed By: #### C ONABO ####[place] [phone] Lymphocytes/100 leukocytes 23.7 % Normal [facility] Comment on above: Performed By: #### C ONABO ####[place] [phone] MCH 29.4 pG Normal 26.0-34.0 [facility] Comment on above: Performed By: #### C ONABO ####[place] [phone] MCHC mass conc (RBC) 35.1 g/dL Normal 30.5-36.0 [facility] Comment on above: Performed By: #### C ONABO ####[place] [phone] MCV 83.7 fL Normal 80.0-100.0 [facility] Comment on above: Performed By: #### C ONABO ####[place] [phone] Monocytes/100 leukocytes 6.6 % Normal [facility] Comment on above: Performed By: #### C ONABO ####[phone] Neutrophils/100 WBC Auto (Bld) 66.4 % Normal [facility] Comment on above: Performed By: #### C ONABO ####[place] [phone] Platelet mean volume (PMV) 10.2 fL Normal 9.0-12.7 [facility] Comment on above: Performed By: #### C ONABO ####[phone] Platelets 90 10*3/uL Low 150-400 [facility] Comment on above: Result Comment: Resu lt checked and verifiedSample checked for a clot. Performed By: #### C ONABO ####[place] [phone] WBC (Leukocytes) 4.55 10*3/uL Normal 3.70-11.00 [facility] Comment on above: Performed By: #### C ONABO ####[place] [phone] Magnesiumon 03-29-2017 Magnesium 1.6 mg/dL Low 1.7-2.6 [facility] Comment on above: Performed By: #### T SCR ####[facility] [place], [place] [phone] NURSING PROGon 03-29-2017 NURSING PROG HNO ID: [id number] thor: Abena Arciniega) Ana Stone: (none)Author Type: Registered NurseType: Nursing Progress NoteFiled: 03/29/2017 7:46 PMNote Text: Nursing Progress NotePatient Name: Leida HouMRN: [id number] Location: [address]/[id number] ____Daily Note:This note was completed by: Abena Stone, [id number] Ernie Hou pt of [facility]. Pt has bloody stools, on GI soft diet.Should the entereg be held or given? Miladis COHEN [id number] Sent text page,awaiting response. [facility] NURSING PROG HNO ID: [id number] thor: Francesca Arciniega) Ana Duffy: (none)Author Type: Registered NurseType: Nursing Progress NoteFiled: 03/29/2017 3:48 PMNote Text: Nursing Progress NotePatient Name: Leida HouN: [id number] Location: [address]/[id number] ____ Patient AANDOx3, walking halls independently, denies N/V, still having somesmall bloody liquid BMs however no clots. Midline andre CDI. 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 , small bowel resection x2, appendectomy, anddrainage of pelvic abscess for diverticulitis.- Continue clears for now, potential for advancing diet- Reduce IVFs- Pain and nausea control- Home meds- No more indication for transfusion at this point- Entereg, docusate- Replete Mg and Phos- IS, OOB/Ambulate- DVT prophylaxisWill discuss plan with staff.SUBJECTIVE: Hgb was low yesterday requiring 2 units pRBCs, appropriateresponse, Hgb 9.0 -> 9.2, afebrile, no leukocytosis, vitals stable, +bowelfunction.OBJECTIVE:BP 156/82 Pulse 94 Temp 36.3 ?C (97.4 ?F) (Oral) Resp 18 Ht 182.9cm (6') Wt 84.2 kg (185 lb 10 oz) SpO2 98% BMI 25.18 kg/w3QAFDUEN: alert, NADLUNGS: breathing comfortablyABDOMEN: soft, incision c/d/iEXTREMITIES: well perfused and warmDate 03/28/17 07 - 03/29/17 0659 03/29/17 07 - 03/30/17 0659Shift 7642-7015 6411-7059 8832-3852 24 Hour Total 6658-9083 2421-84117928-6034 24 Hour TotalINTAKE PO 120 120 PO 120 120 IV 1665 1665 D5 0.45%NS 1665 1665 Blood Products 353 245 598 PRBC Intake (mL) 352 244 596 Packed Red Blood Cells Number of Units 1 1 2 Other Amount Wasted PRBC 0 mL 0 mL 0 mL Shift Total 473 1910 2383OUTPUT Urine 500 6539 404 1027 300 300 Void (ml) 500 9747 334 3023 300 300 # of BMs Number of BMs 1 x 3 x 0 x 4 x Stool 20 20 Liquid BM (mL) 20 20 Shift Total 520 4494 205 2471 300 300Weight (kg) 90.5 90.5 90.5 90.5 84.2 84.2 84.2 84.2Recent Labs 03/28/1820WBC 4.55 -- 5.29 8.11 -- 6.37HB 9.2* 9.0* 7.4* 8.4* -- 7.9*HCT 26.2* 26.6* 21.9* 24.9* -- 23.7*PLT 90* -- 87* 123* -- 97*NA 138 -- 139 -- 141 139K 4.0 -- 4.9 -- 4.7 4.5CHLOR 101 -- 103 -- 105 104CO2 26 -- 26 -- 26 26CREAT 0.83 -- 0.89 -- 1.09 1.50*BUN 12 -- 21 -- 38* 48*GLUC 132* -- 171* -- 160* 158*P 2.2* -- 2.2* -- -- 2.8MG 1.6* -- 2.0 -- -- 2.1CA 8.5 -- 8.6 -- 8.5 8.1*[place] العراقي, DOGeneral Surgery, [id number]-[id number] Normal [facility] Phosphoruson 03-29-2017 Phosphate 2.2 mg/dL Low 2.5-4.5 [facility] Comment on above: Performed By: #### T SCR ####[address] [phone] Basic Metabolic Panlon 03-28 Anion gap 10 mmol/L Normal 9-18 [facility] Comment on above: Performed By: #### C ONABO ####[facility] [place] [address] [phone] Calcium 8.6 mg/dL Normal 8.5-10.5 [facility] Comment on above: Performed By: #### C ONABO ####[address] [phone] Chloride 103 mmol/L Normal 98-110 [facility] Comment on above: Performed By: #### C ONABO ####[place] [address] CO2 26 mmol/L Normal 23-32 [facility] Comment on above: Performed By: #### C ONABO ####[place] [address] Creatinine 0.89 mg/dL Normal 0.70-1.40 [facility] Comment on above: Performed By: #### C ONABO ####[place] [address] eGFR (non-black) mL/min/{1.73_m2} Normal >60 [facility] Comment on above: Performed By: #### C ONABO ####[place] [address] Glucose mass conc 171 mg/dL High 65-100 [facility] Comment on above: Performed By: #### C ONABO ####[place] [address] Potassium molar conc 4.9 mmol/L Normal 3.5-5.0 [facility] Comment on above: Performed By: #### C ONABO ####[place] [address] Sodium 139 mmol/L Normal 135-146 [facility] Comment on above: Performed By: #### C ONABO ####[place] [address] Urea nitrogen 21 mg/dL Normal 10-25 [facility] Comment on above: Performed By: #### C ONABO ####[place] [address] CBC and Differentialon 03-28 Abs Baso <0.03 Normal <0.11 [facility] Comment on above: Performed By: #### C ONABO ####[place] [phone] Abs Stonewall 0.51 k/uL Normal <0.87 [facility] Comment on above: Performed By: #### C ONABO ####[place] [phone] Abs Neut 3.94 k/uL Normal 1.45-7.50 [facility] Comment on above: Performed By: #### C ONABO ####[place] [phone] Basophils/100 WBC Auto (Bld) 0.2 % Normal [facility] Comment on above: Performed By: #### C ONABO ####[address]10 DTYPE Auto Diff Normal [facility] Comment on above: Performed By: #### C ONABO ####[place] [phone] Eosinophils 0.04 10*3/uL Normal <0.46 [facility] Comment on above: Performed By: #### C ONABO ####[address]10 Eosinophils/100 leukocytes 0.8 % Normal [facility] Comment on above: Performed By: #### C ONABO ####[address]10 Erythrocyte distribution width Auto Ratio (RBC) 13.6 % Normal 11.5-15.0 [facility] Comment on above: Performed By: #### C ONABO ####[address]10 Erythrocytes (RBC) 2.56 10*6/uL Low 4.20-6.00 [facility] Comment on above: Performed By: #### C ONABO ####[place] [phone] Hematocrit (HCT) 21.9 % Low 39.0-51.0 [facility] Comment on above: Performed By: #### C ONABO ####[place] [phone] Hemoglobin mass conc (Bld) 7.4 g/dL Low 13.0-17.0 [facility] Comment on above: Performed By: #### C ONABO ####[place] [phone] Lymphocytes 0.79 10*3/uL Low 1.00-4.00 [facility] Comment on above: Performed By: #### C ONABO ####[phone] Lymphocytes/100 leukocytes 14.9 % Normal [facility] Comment on above: Performed By: #### C ONABO ####[place] [phone] MCH 28.9 pG Normal 26.0-34.0 [facility] Comment on above: Performed By: #### C ONABO ####[place] [phone] MCHC mass conc (RBC) 33.8 g/dL Normal 30.5-36.0 [facility] Comment on above: Performed By: #### C ONABO ####[place] [phone] MCV 85.5 fL Normal 80.0-100.0 [facility] Comment on above: Performed By: #### C ONABO ####[place] [phone] Monocytes/100 leukocytes 9.6 % Normal [facility] Comment on above: Performed By: #### C ONABO ####[place] [phone] Neutrophils/100 WBC Auto (Bld) 74.5 % Normal [facility] Comment on above: Performed By: #### C ONABO ####[place] [phone] Platelet mean volume (PMV) 10.2 fL Normal 9.0-12.7 [facility] Comment on above: Performed By: #### C ONABO ####[place] [phone] Platelets 87 10*3/uL Low 150-400 [facility] Comment on above: Result Comment: Resu lt checked and verifiedSample checked for a clot. Performed By: #### C ONABO ####[place] [phone] WBC (Leukocytes) 5.29 10*3/uL Normal 3.70-11.00 [facility] Comment on above: Performed By: #### C ONABO ####[place] [phone] Hematocriton 03-28-2017 Hematocrit (HCT) 26.6 % Low 39.0-51.0 [facility] Comment on above: Performed By: #### C ONABO ####[place] [phone] Hemoglobinon 03-28-2017 Hemoglobin mass conc (Bld) 9.0 g/dL Low 13.0-17.0 [facility] Comment on above: Performed By: #### C ONABO ####[place] [phone] Magnesiumon 03-28-2017 Magnesium 2.0 mg/dL Normal 1.7-2.6 [facility] Comment on above: Performed By: #### C ONABO ####[place] [phone] NURSING PROGon 03-28-2017 NURSING PROG HNO ID: [id number] thor: Yanci Del Cid (Rn) Paul, RNService: (none)Author Type: Registered NurseType: Nursing Progress NoteFiled: 03/28/2017 4:17 PMNote Text: Nursing Progress NotePatient Name: Leida HouMRN: [id number] Location: [place] [address]/[id number] ____Daily Note:Pt assisted up to bathroom. Pt assessment completed at bedside. Midlineopen to air, C/D/I. PEDIATRIC LICENSED PRACTICAL NURSE infusing as ordered. MITCHEL drain serosanguinousdrainage. Denies n/v vomiting at this time. Lake removed before day shiftand 50cc of urine output in urinal at this time. PAS on b/l. Pt statespain managed at this time and denies heartburn currently. Call light andpain button at bedside, no other needs at this time, will continue tomonitor.1100 Dr. Cortez at bedside. New orders received for 2 units of PRBCinfused slowly with 20cc lasix in between. Pt and family updated andaware.1147 Surgery resident at bedside obtaining consent and removing MITCHEL drain.1300 Sadi RN and Sherwin CHOEN at patient bedside to verify and begin bloodadministration as ordered. IVFs on KVO as ordered during infusion. Familyat bedside. Will monitor.1500 Orders received to d/c PEDIATRIC LICENSED PRACTICAL NURSE pump, with IV and PO pain medicationsordered. Pt ambulating floor. First unit of PRBCs infusing without issueas ordered. Pt aware of orders.1615 2nd unit of PRBC infusion began after IV lasix given as ordered. Pttolerating infusion at this time. Will monitor. 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 Distension - nilIncision: wound clean , dry , intactDrains: SSADate 03/27/17 1500 - 03/28/17 0659Shift 7015-8794 6810-6955 24 Hour TotalINTAKE PO 0 0 PO 0 0 IV 265 790 D5 0.45%NS 265 265 LR 525 Blood Products PRBC Intake (mL) Packed Red Blood Cells Number of Units Other Amount Wasted PRBC Shift Total 265 790OUTPUT Urine 9771 495 0178 Void (ml) Tube Output ([REMOVED] Indwelling Urinary Catheter 03/25/17 1520Foley 16 Fr 03/28/17 0652) 3696 260 1430 Emesis 50 50 Emesis (ml) 50 50 Tubes 10 40 75 Drain/Tube Output ([REMOVED] Drain/Tube 03/25/17 1858 Zen PraBig [facility] Medical Centerft Anterior;Lower Quadrant Abdomen Drain #1 03/28/17 1130) 10 40 75 # of BMs Number of BMs 2 x 2 x 6 x Stool 450 300 850 Liquid BM (mL) 450 300 850 Shift Total 1585 1090 3625Weight (kg) 91.8 91.8 91.8Current hospital medications:metoclopramide HCl 10 mg injection (REGLAN) 10 mg INTRAVENOUS q 6 H PRNoxyCODONE IR 5 mg tab(s) (ROXICODONE) 5 mg ORAL q 4 H PRNfentaNYL 50 mcg/mL 25 mcg injection (SUBLIMAZE) 25 mcg INTRAVENOUS q 3 HPRNdextrose 5% in NaCl 0.45% iv infusion 75 mL/hr INTRAVENOUS CONTINUOUScalcium carbonate 500 mg chewable tab(s) (TUMS) 500 mg ORAL BID PRNpantoprazole DR 40 mg tab(s) (PROTONIX) 40 mg ORAL DAILY (6 AM)alvimopan 12 mg cap(s) (ENTEREG) 12 mg ORAL BID0.9% NaCl 2-10 mL 2-10 mL INTRAVENOUS q 12 Hscopolamine 1 mg over 3 days 1 Patch (TRANSDERM-SCOP) 1 Patch TRANSDERMAL(PACU) PRNdextrose 40 % 15 g (INSTA-GLUCOSE) 15 g ORAL PRNglucagon 1 mg injection (GLUCAGEN) 1 mg INTRAMUSCULAR PRNdextrose 50% in water 25 mL syringe 12.5 g INTRAVENOUS PRNacetaminophen 650 mg tab(s) (TYLENOL) 650 mg ORAL q 6 Hondansetron 4 mg tab(s) (ZOFRAN) 4 mg ORAL q 6 H PRNondansetron (PF) 4 mg injection (ZOFRAN) 4 mg INTRAVENOUS q 6 H PRNinsulin lispro injection (rapid acting) (HumaLOG) SUBCUTANEOUS q 6 Hheparin 5,000 Units injection 5,000 Units SUBCUTANEOUS q 12 HCBC, BMP, MG, PHOSRecent Labs 03/27/1812638WBC 5.29 8.11 -- 6.37 16.21*HB 7.4* 8.4* -- 7.9* 10.2*HCT 21.9* 24.9* -- 23.7* 30.1*PLT 87* 123* -- 97* 131*NA 139 -- 141 139 139K 4.9 -- 4.7 4.5 4.7CHLOR 103 -- 105 104 102CO2 26 -- 26 26 21*BUN 21 -- 38* 48* 34*CREAT 0.89 -- 1.09 1.50* 2.63*GLUC 171* -- 160* 158* 177*CA 8.6 -- 8.5 8.1* 8.0*MG 2.0 -- -- 2.1 1.9P 2.2* -- -- 2.8 6.7*Liver Function, Amylase, AND LipaseRecent Labs 854683DSMB 1.5CoagsNo results for input(s): APTT, INR in the last 37680 hours.Invalid input(s): [id number] year old male POD# 3 s/p Laparoscopic adhesiolysis, Open sigmoidcolectomy + 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 The patient?sconcerns have been addressed and he/she agrees to proceed with today?splan of care.Jyoti BakerPGY1, General Surgery Normal [facility] Phosphoruson 03-28-2017 Phosphate 2.2 mg/dL Low 2.5-4.5 [facility] Comment on above: Performed By: #### C ONABO ####[place] [phone] Basic Metabolic Panlon 03-27 Anion gap 10 mmol/L Normal 9-18 [facility] Comment on above: Performed By: #### C BCDIF ####[place] [phone] Calcium 8.5 mg/dL Normal 8.5-10.5 [facility] Comment on above: Performed By: #### C BCDIF ####[place] [phone] Chloride 105 mmol/L Normal 98-110 [facility] Comment on above: Performed By: #### C BCDIF ####[place] [phone] CO2 26 mmol/L Normal 23-32 [facility] Comment on above: Performed By: #### C BCDIF ####[place] [phone] Creatinine 1.09 mg/dL Normal 0.70-1.40 [facility] Comment on above: Performed By: #### C BCDIF ####[place] [phone] eGFR (non-black) mL/min/{1.73_m2} Normal >60 [facility] Comment on above: Performed By: #### C BCDIF ####[place] [phone] Glucose mass conc 160 mg/dL High 65-100 [facility] Comment on above: Performed By: #### C BCDIF ####[place] [phone] Potassium molar conc 4.7 mmol/L Normal 3.5-5.0 [facility] Comment on above: Performed By: #### C BCDIF ####[place] [phone] Sodium 141 mmol/L Normal 135-146 [facility] Comment on above: Performed By: #### C BCDIF ####[place] [phone] Urea nitrogen 38 mg/dL High 10-25 [facility] Comment on above: Performed By: #### C BCDIF ####[place] [phone] Anion gap 9 mmol/L Normal 9-18 [facility] Comment on above: Performed By: #### C BCDIF ####[place] [phone] Calcium 8.1 mg/dL Low 8.5-10.5 [facility] Comment on above: Performed By: #### C BCDIF ####[place] [phone] Chloride 104 mmol/L Normal 98-110 [facility] Comment on above: Performed By: #### C BCDIF ####[place] [phone] CO2 26 mmol/L Normal 23-32 [facility] Comment on above: Performed By: #### C BCDIF ####[place] [phone] Creatinine 1.50 mg/dL High 0.70-1.40 [facility] Comment on above: Result Comment: Gil crawford Performed By: #### C BCDIF ####[place] [phone] eGFR (non-black) 49 . Low >60 [facility] Comment on above: Performed By: #### C BCDIF ####[place] [phone] eGFR (non-black) 59 mL/min/{1.73_m2} Low >60 [facility] Comment on above: Performed By: #### C BCDIF ####[place] [phone] Glucose mass conc 158 mg/dL High 65-100 [facility] Comment on above: Performed By: #### C BCDIF ####[place] [phone] Potassium molar conc 4.5 mmol/L Normal 3.5-5.0 [facility] Comment on above: Performed By: #### C BCDIF ####[place] [phone] Sodium 139 mmol/L Normal 135-146 [facility] Comment on above: Performed By: #### C BCDIF ####[place] [phone] Urea nitrogen 48 mg/dL High 10-25 [facility] Comment on above: Performed By: #### C BCDIF ####[place] [phone] CBCon 03-27-2017 Erythrocyte distribution width Auto Ratio (RBC) 13.7 % Normal 11.5-15.0 [facility] Comment on above: Performed By: #### C BCDIF ####[place] [id number] Erythrocytes (RBC) 2.90 10*6/uL Low 4.20-6.00 [facility] Comment on above: Performed By: #### C BCDIF ####[place] [phone] Hematocrit (HCT) 24.9 % Low 39.0-51.0 [facility] Comment on above: Performed By: #### C BCDIF ####[place] [phone] Hemoglobin mass conc (Bld) 8.4 g/dL Low 13.0-17.0 [facility] Comment on above: Performed By: #### C BCDIF ####[place] [phone] MCH 29.0 pG Normal 26.0-34.0 [facility] Comment on above: Performed By: #### C BCDIF ####[place] [phone] MCHC mass conc (RBC) 33.7 g/dL Normal 30.5-36.0 [facility] Comment on above: Performed By: #### C BCDIF ####[place] [phone] MCV 85.9 fL Normal 80.0-100.0 [facility] Comment on above: Performed By: #### C BCDIF ####[place] [phone] Platelet mean volume (PMV) 11.0 fL Normal 9.0-12.7 [facility] Comment on above: Performed By: #### C BCDIF ####[place] [phone] Platelets 123 10*3/uL Low 150-400 [facility] Comment on above: Performed By: #### C BCDIF ####[place] [phone] WBC (Leukocytes) 8.11 10*3/uL Normal 3.70-11.00 [facility] Comment on above: Performed By: #### C BCDIF ####[place] [phone] CBC and Differentialon 03-27 Abs Baso <0.03 Normal <0.11 [facility] Comment on above: Performed By: #### C BCDIF ####[place] [phone] Abs [place] 0.45 k/uL Normal <0.87 [facility] Comment on above: Performed By: #### C BCDIF ####[place] [phone] Abs Neut 4.98 k/uL Normal 1.45-7.50 [facility] Comment on above: Performed By: #### C BCDIF ####[place] [phone] Basophils/100 WBC Auto (Bld) 0.0 % Normal [facility] Comment on above: Performed By: #### C BCDIF ####[address] DTYPE Auto Diff Normal [facility] Comment on above: Performed By: #### C BCDIF ####[place] [phone] Eosinophils 10*3/uL Normal <0.46 [facility] Comment on above: Performed By: #### C BCDIF ####[place] [id number] Eosinophils/100 leukocytes 0.3 % Normal [facility] Comment on above: Performed By: #### C BCDIF ####[place] [phone] Erythrocyte distribution width Auto Ratio (RBC) 13.7 % Normal 11.5-15.0 [facility] Comment on above: Performed By: #### C BCDIF ####[place] [phone] Erythrocytes (RBC) 2.72 10*6/uL Low 4.20-6.00 [facility] Comment on above: Performed By: #### C BCDIF ####[place] [phone] Hematocrit (HCT) 23.7 % Low 39.0-51.0 [facility] Comment on above: Performed By: #### C BCDIF ####[place] [phone] Hemoglobin mass conc (Bld) 7.9 g/dL Low 13.0-17.0 [facility] Comment on above: Performed By: #### C BCDIF ####[place] [phone] Lymphocytes 0.92 10*3/uL Low 1.00-4.00 [facility] Comment on above: Performed By: #### C BCDIF ####[place] [phone] Lymphocytes/100 leukocytes 14.4 % Normal [facility] Comment on above: Performed By: #### C BCDIF ####[place] [phone] MCH 29.0 pG Normal 26.0-34.0 [facility] Comment on above: Performed By: #### C BCDIF ####[place] [phone] MCHC mass conc (RBC) 33.3 g/dL Normal 30.5-36.0 [facility] Comment on above: Performed By: #### C BCDIF ####[place] [phone] MCV 87.1 fL Normal 80.0-100.0 [facility] Comment on above: Performed By: #### C BCDIF ####[place] [phone] Monocytes/100 leukocytes 7.1 % Normal [facility] Comment on above: Performed By: #### C BCDIF ####[address] [phone] Neutrophils/100 WBC Auto (Bld) 78.2 % Normal [facility] Comment on above: Performed By: #### C BCDIF ####[facility] [place], [place] [phone] Platelet mean volume (PMV) 10.8 fL Normal 9.0-12.7 [facility] Comment on above: Performed By: #### C BCDIF ####[address] [phone] Platelets 97 10*3/uL Low 150-400 [facility] Comment on above: Result Comment: Resu lt checked and verifiedSample checked for a clot. Performed By: #### C BCDIF ####[place] [id number] [place], [place] [phone] WBC (Leukocytes) 6.37 10*3/uL Normal 3.70-11.00 [facility] Comment on above: Performed By: #### C BCDIF ####[place] [id number] [place], [place] [phone] Creatinine, Fluidon 03-27-19 18 Creatinine 1.3 mg/dL Normal [facility] Comment on above: Result Comment: (NOT E)Serous fluids:Creatinine measurement in peritoneal or drainage fluids is considereda useful test for detecting the presence of urine leaking through adefect in the urinary tract. A ratio of serous fluid creatinine to aconcurrent serum creatinine > 1.0 indicates possible urineextravasation.Amniotic fluid:Creatinine measurement can be performed on amniotic fluid. Theinterpretation of the result is dependent on the clinical context,including gestational age. See references below.References:1. CLSI. Analysis of Body Fluids in Clinical Chemistry;Approved Guideline. CLSI document C49-A. CLAUDIA Mclean: ClinicalLaboratory Standards [place]; 2007.2. Drew DOMINGUEZ, Gab TA, Manuela JL, Yann VM, Michael CJ.Composition of the amniotic fluid and maternal serum in . AmJ Obstet Gynecol 1974;119:798-810.This test was developed and its performance characteristicsdetermined by [facility]Lab[facility] Medicine [facility]ici ([facility]). It has not been cleared orapproved by the FDA. RT-PLMI is regulated under CLIA as qualified toperform high-complexity testing. This test is used for clinicalpurposes. It should not be regarded as investigational or forresearch. Performed By: #### C BCDIF ####[facility] [place], [place] [phone] Magnesiumon 03-27-2017 Magnesium 2.1 mg/dL Normal 1.7-2.6 [facility] Comment on above: Performed By: #### C BCDIF ####[facility] [place], [place] [phone] NURSING PROGon 03-27-2017 NURSING PROG HNO ID: [id number] thor: Yanci Del Cid (Rn) Paul, RNService: (none)Author Type: Registered NurseType: Nursing Progress NoteFiled: 03/27/2017 6:14 PMNote Text: Nursing Progress NotePatient Name: Leida HouMRN: [id number] Location: [place] [address]/[id number] ____Daily Note:Pt AANDOx3, states pain controlled at this time. PEDIATRIC LICENSED PRACTICAL NURSE pump infusing asordered, PAS on b/l. Pt c/o heartburn and nausea, medicated for each asordered. MITCHEL draining serosanguinous drainage. RN on tele. No other needsat this time, call light in reach, will monitor.1124 Pt BM was 100ml, bloody red stool with 3 dime sized clots present. Ptresting, no needs expressed at this time, states feeling fine right now .Call light in reach, pain button in reach, will monitor.1350 Ambulated 2 times around unit with PCNA. Pt back to bed, call lightin reach, no other needs. Will monitor.1512 Paged Surgical Blue team regarding status of lake to remove or keep.Will monitor.1518 Spoke with Surgical blue team resident and once creatinine collected,if results are normal let team know and lake maybe able to be removed.1558 Pt c/o bad heartburn accompanied with nausea. No Rx for heartburnavailable at this time, gave IV zofran for dry heaves. Pt states all r/theartburn and IV pepcid not very helpful, but omeprazole would last acouple of days. Paged blue team for recommendations. Will monitor.1730 Paged surgical blue team again for omeprazole for patient.1745 Dr. العراقي called orders received for TUMS. Explained to Thatpatient requesting omeprazole as IV pepcid ineffective. RN told residentTUMS may be acceptable, but omeprazole is preferred and requested.1800 TUMS ordered cleared by pharmacy, Pt refusing TUMS, wants omeprazoleand to speak with resident. Resident paged that patient would like tospeak to him . Family at bedside.[address] العراقي, orders received for PO 40 mg of omeprazole, TUMSand d/c IV pepcid. 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 Distension - nilIncision: wound clean , dry , intactDrains: SSADate 03/26/17 0700 - 03/27/17 0659Shift 7712-7020 2026-5882 2172-9680 24 Hour TotalINTAKE PO 60 60 60 180 PO 60 60 60 180 IV 308 291 599 LR 308 291 599 Shift Total 368 351 60 779OUTPUT Urine 250 983 165 7035 Tube Output ( Indwelling Urinary Catheter 03/25/17 1520 Lake 16Fr) 250 623 310 7361 Emesis 0 0 0 Emesis (ml) 0 0 0 Tubes 90 50 40 180 Drain/Tube Output (Drain/Tube 03/25/17 1858 Zen Verma LeftAnterior;Lower Quadrant Abdomen Drain #1) 90 50 40 180 # of BMs Number of BMs 0 x 0 x 1 x 1 x Stool Liquid BM (mL) Shift Total 340 350 490 1180Weight (kg) 92.8 92.8 92.8 92.8Current hospital medications:famotidine 20 mg injection (PEPCID) 20 mg INTRAVENOUS BIDalvimopan 12 mg cap(s) (ENTEREG) 12 mg ORAL BID0.9% NaCl 2-10 mL 2-10 mL INTRAVENOUS q 12 Hscopolamine 1 mg over 3 days 1 Patch (TRANSDERM-SCOP) 1 Patch TRANSDERMAL(PACU) PRNdextrose 40 % 15 g (INSTA-GLUCOSE) 15 g ORAL PRNglucagon 1 mg injection (GLUCAGEN) 1 mg INTRAMUSCULAR PRNdextrose 50% in water 25 mL syringe 12.5 g INTRAVENOUS PRNfentaNYL PEDIATRIC LICENSED PRACTICAL NURSE 20 mcg/mL in NaCl 0.9% 100 mL INTRAVENOUS CONTINUOUSlactated ringers infusion 50 mL/hr INTRAVENOUS CONTINUOUSacetaminophen 650 mg tab(s) (TYLENOL) 650 mg ORAL q 6 Hondansetron 4 mg tab(s) (ZOFRAN) 4 mg ORAL q 6 H PRNondansetron (PF) 4 mg injection (ZOFRAN) 4 mg INTRAVENOUS q 6 H PRNinsulin lispro injection (rapid acting) (HumaLOG) SUBCUTANEOUS q 6 Hheparin 5,000 Units injection 5,000 Units SUBCUTANEOUS q 12 HCBC, BMP, MG, PHOSRecent Labs 542 8 005WBC 6.37 16.21* 15.61* 8.57HB 7.9* 10.2* 10.0* 14.6HCT 23.7* 30.1* 29.6* 41.7PLT 97* 131* 131* 126*NA 139 139 -- --K 4.5 4.7 -- --CHLOR 104 102 -- --CO2 26 21* -- --BUN 48* 34* -- --CREAT 1.50* 2.63* -- --GLUC 158* 177* -- --CA 8.1* 8.0* -- --MG 2.1 1.9 -- --P 2.8 6.7* -- --Liver Function, Amylase, AND LipaseRecent Labs 0LACT 1.5CoagsNo results for input(s): APTT, INR in the last 86102 hours.Invalid input(s): [id number] year old male POD# 2 s/p Laparoscopic adhesiolysis, Open sigmoidcolectomy + 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 The patient?sconcerns have been addressed and he/she agrees to proceed with today?splan of care.Jyoti BakerPGY1, General Surgery Normal [facility] Phosphoruson 03-27-2017 Phosphate 2.8 mg/dL Normal 2.5-4.5 [facility] Comment on above: Performed By: #### C BCDIF ####[place] [phone] Basic Metabolic Panlon 03-26 Anion gap 16 mmol/L Normal 9-18 [facility] Comment on above: Performed By: #### C BCDIF, BMP, MG1, PHOS ####[address] Calcium 8.0 mg/dL Low 8.5-10.5 [facility] Comment on above: Performed By: #### C BCDIF, BMP, MG1, PHOS ####[place] [phone] Chloride 102 mmol/L Normal 98-110 [facility] Comment on above: Performed By: #### C BCDIF, BMP, MG1, PHOS ####[place] [phone] CO2 21 mmol/L Low 23-32 [facility] Comment on above: Performed By: #### C BCDIF, BMP, MG1, PHOS ####[address] Creatinine 2.63 mg/dL High 0.70-1.40 [facility] Comment on above: Performed By: #### C BCDIF, BMP, MG1, PHOS ####[place] [address] eGFR (non-black) 26 . Low >60 [facility] Comment on above: Performed By: #### C BCDIF, BMP, MG1, PHOS ####[address] eGFR (non-black) 31 mL/min/{1.73_m2} Low >60 [facility] Comment on above: Performed By: #### C BCDIF, BMP, MG1, PHOS ####[place] [phone] Glucose mass conc 177 mg/dL High 65-100 [facility] Comment on above: Performed By: #### C BCDIF, BMP, MG1, PHOS ####[facility] [place] [phone] Potassium molar conc 4.7 mmol/L Normal 3.5-5.0 [facility] Comment on above: Performed By: #### C BCDIF, BMP, MG1, PHOS ####[facility] [place] [phone] Sodium 139 mmol/L Normal 135-146 [facility] Comment on above: Performed By: #### C BCDIF, BMP, MG1, PHOS ####[place] [id number] [place] [phone] Urea nitrogen 34 mg/dL High 10-25 [facility] Comment on above: Performed By: #### C BCDIF, BMP, MG1, PHOS ####[place] [id number] [place] [phone] CASE MGT INIT ASSESon 2017 CASE MGT INIT ASS HNO ID: [id number] thor: Linh Herrera ([facility]) PealisonuloService: Care ManagementAuthor Type: Social WorkerType: Care Mgt Initial AssessmentFiled: 03/26/2017 1:47 PMNote Text:CARE MANAGEMENT: ASSESSMENT AND DISCHARGE PLANSERVICE DATE: 03/26/2017SERVICE TIME: 1:10 PMPRIMARY CARE PHYSICIAN:ZAHIDA Childshone: [phone] STATUS: InpatientPOTENTIAL DISCHARGE PLANSHomePatient/Representat andres Stated Goals: To get wellHealth Insurance: Supermed Plus/[employer] [place] Access PPOLiving Arrangement: HomeLives With: Spouse and DaughterFinancial Resources: Retired - Per Pt he retired at age 46 w/gov'tPrimary Contact:Extended Emergency Contact InformationPrimary Emergency Contact: Sepideh HouAddress: [address], [place] [address]Guqd Vtookecj: SpouseSupportive: YesOther Important Patient Contacts: NoneCAREGIVER ASSESSMENT:Caregiver is ready, willing and able to meet the patient's needs asrecommended by the inter-professional team? YesPatient's transition needs and plan for meeting these needs: Home w/Selfcare anticipatedDoes the patient have an acute stroke diagnosis, or has the patient had astroke during this admission? NoADVANCE DIRECTIVES:Does Patient Have Advance Directives? No - Pt has copies he says he willreview first and possibly complete this hospital stayDoes Patient Have Concerns About Advance Directives? NoPRIOR TO ADMISSION:Baseline Mental Status: Alert AND Oriented, Person, Place , Time andSituationFunctional Status: IndependentDoes Patient Currently Receive Any Community Services or Home Care? 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 NoFamily/Patient Understanding of Illness/Diagnosis: goodMedication Adherence:Do you forget to take your medications? I do not forget to take mymedicationHave you ever stopped taking medications because you felt worse? None ofthe timeHave you ever taken less of your medication than what was prescribed byyour doctor? None of the timeIn the past 3 months, have you had issues obtaining one or more of yourmedications? None of the timeAre you interested in bedside delivery of your medications? YesFood Concerns:In the Last Month, Have You had Trouble Getting Food? No trouble gettingfoodDuring the Last Month, Have You Worried Whether Your Food Would Run OutBefore You Had Enough Money to Buy More? NoPsychosocial Needs: NoneUTILIZATION:Last Admission Date: noneIs this Within the Past 30 days? NoHas the Patient Been in a Nursing Home Facility in the Past 30 days? NoFREEDOM OF CHOICE EXPLAINED:Yes PtMyron HouPreference: Home/self careHANDOFF COMMUNICATION:Primary Care Physician: Dr. Ricardo Phoenix TZUE met with Pt bedside. Pt Spouse and family present. Pt AANDOx4. CMintroduced self and role of CM. Per Pt he lives home w/spouse and dtr andIPTA w/ADL's. 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 Per Pt he uses [facility] in [place], [place]. Pt spouse inquired onprocess of FMLA although per Pt children the family is able to rotate anyhelp Pt may need going home. CM discussed transitional care w/nursing andJosefina TAYLOR. Pt anticipated home no skilled needs. Pt spouse totransport Pt home when medically cleared. CM will continue to beavailable.SIGNATURE: QUYNH Bassett PATIENT NAME: Leida HouDATE: March 26, 2017 : 1:27 PM PAGER/CONTACT #: [phone] Normal [facility] CBC and Differentialon 03-26 Abs Baso <0.03 Normal <0.11 [facility] Comment on above: Performed By: #### C BCDIF, BMP, MG1, PHOS ####[address] Abs Stonewall 0.84 k/uL Normal <0.87 [facility] Comment on above: Performed By: #### C BCDIF, BMP, MG1, PHOS ####[place] [address] Abs Neut 13.93 k/uL High 1.45-7.50 [facility] Comment on above: Performed By: #### C BCDIF, BMP, MG1, PHOS ####[address] Basophils/100 WBC Auto (Bld) 0.0 % Normal [facility] Comment on above: Performed By: #### C BCDIF, BMP, MG1, PHOS ####[place] [phone] DTYPE Auto Diff Normal [facility] Comment on above: Performed By: #### C BCDIF, BMP, MG1, PHOS ####[place] [phone] Eosinophils 10*3/uL Normal <0.46 [facility] Comment on above: Performed By: #### C BCDIF, BMP, MG1, PHOS ####[place] [address] Eosinophils/100 leukocytes 0.0 % Normal [facility] Comment on above: Performed By: #### C BCDIF, BMP, MG1, PHOS ####[place] [address] Erythrocyte distribution width Auto Ratio (RBC) 13.6 % Normal 11.5-15.0 [facility] Comment on above: Performed By: #### C BCDIF, BMP, MG1, PHOS ####[place] [address] Erythrocytes (RBC) 3.52 10*6/uL Low 4.20-6.00 [facility] Comment on above: Performed By: #### C BCDIF, BMP, MG1, PHOS ####[place] [address] Hematocrit (HCT) 30.1 % Low 39.0-51.0 [facility] Comment on above: Performed By: #### C BCDIF, BMP, MG1, PHOS ####[place] [address] Hemoglobin mass conc (Bld) 10.2 g/dL Low 13.0-17.0 [facility] Comment on above: Performed By: #### C BCDIF, BMP, MG1, PHOS ####[place] [address] Lymphocytes 1.44 10*3/uL Normal 1.00-4.00 [facility] Comment on above: Performed By: #### C BCDIF, BMP, MG1, PHOS ####[place] [address] Lymphocytes/100 leukocytes 8.9 % Normal [facility] Comment on above: Performed By: #### C BCDIF, BMP, MG1, PHOS ####[place] [phone] MCH 29.0 pG Normal 26.0-34.0 [facility] Comment on above: Performed By: #### C BCDIF, BMP, MG1, PHOS ####[place] [phone] MCHC mass conc (RBC) 33.9 g/dL Normal 30.5-36.0 [facility] Comment on above: Performed By: #### C BCDIF, BMP, MG1, PHOS ####[place] [phone] MCV 85.5 fL Normal 80.0-100.0 [facility] Comment on above: Performed By: #### C BCDIF, BMP, MG1, PHOS ####[place] [phone] Monocytes/100 leukocytes 5.2 % Normal [facility] Comment on above: Performed By: #### C BCDIF, BMP, MG1, PHOS ####[place] [address] Neutrophils/100 WBC Auto (Bld) 85.9 % Normal [facility] Comment on above: Performed By: #### C BCDIF, BMP, MG1, PHOS ####[address] Platelet mean volume (PMV) 11.1 fL Normal 9.0-12.7 [facility] Comment on above: Performed By: #### C BCDIF, BMP, MG1, PHOS ####[place] [phone] Platelets 131 10*3/uL Low 150-400 [facility] Comment on above: Performed By: #### C BCDIF, BMP, MG1, PHOS ####[place] [phone] WBC (Leukocytes) 16.21 10*3/uL High 3.70-11.00 [facility] Comment on above: Performed By: #### C BCDIF, BMP, MG1, PHOS ####[place] [phone] Abs Baso <0.03 Normal <0.11 [facility] Comment on above: Performed By: #### C BCDIF ####[place] [address] Abs Stonewall 0.72 k/uL Normal <0.87 [facility] Comment on above: Performed By: #### C BCDIF ####[place] [address] Abs Neut 13.93 k/uL High 1.45-7.50 [facility] Comment on above: Performed By: #### C BCDIF ####[place] [address] Basophils/100 WBC Auto (Bld) 0.0 % Normal [facility] Comment on above: Performed By: #### C BCDIF ####[place] [address] DTYPE Auto Diff Normal [facility] Comment on above: Performed By: #### C BCDIF ####[address] Eosinophils 10*3/uL Normal <0.46 [facility] Comment on above: Performed By: #### C BCDIF ####[address] Eosinophils/100 leukocytes 0.0 % Normal [facility] Comment on above: Performed By: #### C BCDIF ####[place] [address] Erythrocyte distribution width Auto Ratio (RBC) 13.4 % Normal 11.5-15.0 [facility] Comment on above: Performed By: #### C BCDIF ####[place] [phone] Erythrocytes (RBC) 3.47 10*6/uL Low 4.20-6.00 [facility] Comment on above: Performed By: #### C BCDIF ####[place] [phone] Hematocrit (HCT) 29.6 % Low 39.0-51.0 [facility] Comment on above: Performed By: #### C BCDIF ####[place] [address] Hemoglobin mass conc (Bld) 10.0 g/dL Low 13.0-17.0 [facility] Comment on above: Performed By: #### C BCDIF ####[address] Lymphocytes 0.96 10*3/uL Low 1.00-4.00 [facility] Comment on above: Performed By: #### C BCDIF ####[address] Lymphocytes/100 leukocytes 6.1 % Normal [facility] Comment on above: Performed By: #### C BCDIF ####[address] MCH 28.8 pG Normal 26.0-34.0 [facility] Comment on above: Performed By: #### C BCDIF ####[address] MCHC mass conc (RBC) 33.8 g/dL Normal 30.5-36.0 [facility] Comment on above: Performed By: #### C BCDIF ####[place] [phone] MCV 85.3 fL Normal 80.0-100.0 [facility] Comment on above: Performed By: #### C BCDIF ####[place] [id number] Monocytes/100 leukocytes 4.6 % Normal [facility] Comment on above: Performed By: #### C BCDIF ####[place] [phone] Neutrophils/100 WBC Auto (Bld) 89.3 % Normal [facility] Comment on above: Performed By: #### C BCDIF ####[place] [id number] [place] [phone] Platelet mean volume (PMV) 11.2 fL Normal 9.0-12.7 [facility] Comment on above: Performed By: #### C BCDIF ####[place] [phone] Platelets 131 10*3/uL Low 150-400 [facility] Comment on above: Performed By: #### C BCDIF ####[place] [phone] WBC (Leukocytes) 15.61 10*3/uL High 3.70-11.00 [facility] Comment on above: Performed By: #### C BCDIF ####[place] [phone] Magnesiumon 03-26-2017 Magnesium 1.9 mg/dL Normal 1.7-2.6 [facility] Comment on above: Performed By: #### C BCDIF, BMP, MG1, PHOS ####[place] [phone] NURSING PROGon 03-26-2017 NURSING PROG HNO ID: [id number] thor: Pauline (Rn) [place], RNService: NursingAuthor Type: Registered NurseType: Nursing Progress NoteFiled: 03/26/2017 5:09 PMNote Text: Nursing Progress NotePatient Name: Leida HouMRN: [id number] Location: [facility]3B21/[id number] ____Daily Note:Pt A+Ox3, speech clear, CODY. Midline dressing CDI. Abdomen tender, bowelsounds present x 4 quadrants. LLQ MITCHEL drain patent to bulb suction withserosang drainage. No flatus or BM at this time. Denies NANDV. NPO x medsAND ice chips maintained. LR infusing at 50 ml/hr. Lake cath patent anddraining clear yellow urine, pt requesting removal, colorectal team alphapaged regarding request. Sinus rhythm to sinus tachycardia on cardiacmonitor, HR low 100s. Pulse ox 96% on RA. IV/PEDIATRIC LICENSED PRACTICAL NURSE fentanyl in use, seeEMAR for settings. Pt reports adequate pain control. Ambulated 3 laps inhalls thus far. Safety maintained, will continue with plan of care.This note was completed by: Pauline Paniagua RN [facility] NURSING PROG HNO ID: [id number] thor: Pattie (Rn) Saman, RNService: (none)Author Type: Registered NurseType: Nursing Progress NoteFiled: 03/25/2017 10:51 PMNote Text: Nursing Progress NotePatient Name: Leida HouMRN: [id number] Location: [place] [address]/[id number] ____Transfer Note:Patient transferred into room/unit PK321 at 2215. 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 Distension - nilIncision: dressing clean , dry , intactDrains: SSADate 03/25/17 0700 - 03/26/17 0659Shift 3987-8016 2511-3368 9906-6938 24 Hour TotalINTAKE IV 1768 1768 LR 1768 1768 Other 1250 1250 OR 250 250 PACU ([facility] Only) 1000 1000 Shift Total 1250 1768 3018OUTPUT Urine 205 205 Tube Output ( Indwelling Urinary Catheter 03/25/17 1520 Lake 16Fr) 205 205 Tubes 280 110 390 Drain/Tube Output (Drain/Tube 03/25/17 1858 Zen Verma LeftAnterior;Lower Quadrant Abdomen Drain #1) 280 110 390 Shift Total 485 110 595Weight (kg) 92.8 92.8Current hospital medications:alvimopan 12 mg cap(s) (ENTEREG) 12 mg ORAL BID0.9% NaCl 2-10 mL 2-10 mL INTRAVENOUS q 12 Hscopolamine 1 mg over 3 days 1 Patch (TRANSDERM-SCOP) 1 Patch TRANSDERMAL(PACU) PRNscopolamine - VERIFY patch OTHER q 8 Hscopolamine - REMOVE PATCH OTHER ONCEdextrose 40 % 15 g (INSTA-GLUCOSE) 15 g ORAL PRNglucagon 1 mg injection (GLUCAGEN) 1 mg INTRAMUSCULAR PRNdextrose 50% in water 25 mL syringe 12.5 g INTRAVENOUS PRNfentaNYL PEDIATRIC LICENSED PRACTICAL NURSE 20 mcg/mL in NaCl 0.9% 100 mL INTRAVENOUS CONTINUOUSlactated ringers infusion 50 mL/hr INTRAVENOUS CONTINUOUSacetaminophen 650 mg tab(s) (TYLENOL) 650 mg ORAL q 6 Hondansetron 4 mg tab(s) (ZOFRAN) 4 mg ORAL q 6 H PRNondansetron (PF) 4 mg injection (ZOFRAN) 4 mg INTRAVENOUS q 6 H PRNinsulin lispro injection (rapid acting) (HumaLOG) SUBCUTANEOUS q 6 Hheparin 5,000 Units injection 5,000 Units SUBCUTANEOUS q 12 HCBC, BMP, MG, PHOSRecent Labs 638 03/25/1809WBC 16.21* 15.61* 8.57HB 10.2* 10.0* 14.6HCT 30.1* 29.6* 41.7PLT 131* 131* 126*NA 139 -- --K 4.7 -- --CHLOR 102 -- --CO2 21* -- --BUN 34* -- --CREAT 2.63* -- --GLUC 177* -- --CA 8.0* -- --MG 1.9 -- --P 6.7* -- --Liver Function, Amylase, AND LipaseRecent Labs LACT 1.5CoagsNo results for input(s): APTT, INR in the last 89311 hours.Invalid input(s): BKLDBDONNSSI69 year old male POD# 1 s/p Laparoscopic adhesiolysis, Open sigmoidcolectomy + 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 The patient?sconcerns have been addressed and he/she agrees to proceed with today?splan of care.Jyoti BakerPGY1, General SurgeryFebruary 20177:50 AM Normal [facility] PROGRESS HNO ID: [id number] thor: Jeannine (Res) Jung, MDService: General SurgeryAuthor Type: ResidentType: Progress NotesFiled: 03/26/2017 1:24 AMNote Text:Leida HouFV-PK3B21/HE-YS1U-50Be stoperative CheckSurgerySubjective:Pain well-controlled. No N/V.Denies CP/SOB/palpitations/visual changes/weakness/otherObject andres:Vitals: BP (!) 83/47 Pulse 103 Temp 36.4 ?C (97.6 ?F) (Axillary) Resp 18 Ht 182.9 cm (6') Wt 88.7 kg (195 lb 8.8 oz) SpO2 97% BMI26.52 kg/y3Msbfpib: no distress, laying comfortably in bed, alert and orientedPulmonary: non-labored breathingAbdomen: soft, non-distended, expected incisional tendernessIncision(s): intact and dryAssessment:51 year old male POD 0 S/P open sigmoid colectomy, SBR x2, appendectomy,and DAHLIA.Pain well-controlled, exam appropriate, patient BPs running 70-80s/40-50s.Plan:- Continue routine post-operative care- Will give 1 L fluid bolus to see if BP responds to fluids- STAT Lamar Jung MDGeneral Surgery, [id number]: 086608:23 AM 03/26/2017*Please page General Surgery on-call pager [phone] after 6pm and onweekends. Normal [facility] Phosphoruson 03-26-2017 Phosphate 6.7 mg/dL High 2.5-4.5 [facility] Comment on above: Performed By: #### C BCDIF, BMP, MG1, PHOS ####[facility] [place], [place] [phone] ABG Complete Eval FOR WEST U SE ONLYon 03-25-2017 Base Excess Negative Normal [facility] Comment on above: Result Comment: -3 t o 3 Performed By: #### A BGRTC ####[facility] [place], [place] [phone] Bicarbonate (HCO3) 18 mmol/L Low 22- [facility] Comment on above: Performed By: #### A BGRTC ####[place] [address] Calcium 1.16 mmol/L Normal 1.15-1.35 [facility] Comment on above: Performed By: #### A BGRTC ####[place] [address] Chloride 110 mmol/L High 98-107 [facility] Comment on above: Performed By: #### A BGRTC ####[place] [address] CO2 34 mm Hg Low 35-48 [facility] Comment on above: Performed By: #### A BGRTC ####[place] [address] CO2 19 mmol/L Low 22.0-28.0 [facility] Comment on above: Performed By: #### A BGRTC ####[place] [address] Glucose mass conc 145 mg/dL High 65-100 [facility] Comment on above: Performed By: #### A BGRTC ####[place] [address] Hematocrit (HCT) 38 % Low 42.0-52.0 [facility] Comment on above: Performed By: #### A BGRTC ####[place] [address] Hemoglobin mass conc (Bld) 12.2 g/dL Low 14-18 [facility] Comment on above: Performed By: #### A BGRTC ####[place] [address] Hemoglobin mass conc (Bld) 0.8 % Normal 0.4-1.5 [facility] Comment on above: Performed By: #### A BGRTC ####[place] [address] Hemoglobin mass conc (Bld) 96 % Normal 94-100 [facility] Comment on above: Performed By: #### A BGRTC ####[place] [address] Hemoglobin mass conc (Bld) 1.2 % Normal <2.0 [facility] Comment on above: Performed By: #### A BGRTC ####[place] [phone] Lactate 1.5 mmol/L Normal 0.4-2.0 [facility] Comment on above: Performed By: #### A BGRTC ####[place] [phone] O2 Administered 21.0 Normal [facility] Comment on above: Performed By: #### A BGRTC ####[place] [phone] O2 saturation 97 % Normal 90-98 [facility] Comment on above: Performed By: #### A BGRTC ####[place] [phone] Oxygen in arterial blood 101 mm Hg High 80-100 [facility] Comment on above: Performed By: #### A BGRTC ####[place] [phone] pH of blood 7.34 [pH] Low 7.35-7.45 [facility] Comment on above: Performed By: #### A BGRTC ####[place] [phone] PO2FI FOR WEST USE ONLY 481 mmHG Normal 400-500 [facility] Comment on above: Performed By: #### A BGRTC ####[place] [phone] Potassium molar conc 4.6 mmol/L Normal 3.5-5.0 [facility] Comment on above: Performed By: #### A BGRTC ####[place] [phone] Sodium 135 mmol/L Normal 135-145 [facility] Comment on above: Performed By: #### A BGRTC ####[facility] [place], [place] [phone] ANES Padmini 03-25-2017 ANES POST HNO ID: [id number] thor: Jeison Plataervice: AnesthesiologyAuthor Type: AnesthesiologistType: Anesthesia PostOpFiled: 03/25/2017 7:38 PMNote Text:POST ANESTHESIA EVALUATION NOTESERVICE DATE: 03/25/2017SERVICE TIME: 7:38 PMDOB: 1965Vitals: [id number]: 124/71Pulse: 88Resp: 16Temp: (!) 35.9 ?C (96.6 ?F)TempSrc: Temporal ArterySpO2: 99%Validated Vital Signs: YesNo apparent anesthetic complications. The patient is appropriatelyhydrated with stable respiratory and cardiovascular status. Patient hassafe and adequate airway control. The patient has appropriate pain reliefand no significant post operative nausea or vomiting. The patient hasachieved baseline mental status.Further assessment by Anesthesia Service: NoneOther Remarks:SIGNATURE: Jeison Larose MD PATIENT NAME: Leida HouDATE: March 25, 2017 : 7:38 PM PAGER/CONTACT #: [phone] [facility] ANES PREOPon 03-25-2017 ANES PREOP HNO ID: [id number] thor: Luis Anguloervice: Pain ManagementAuthor Type: AnesthesiologistType: Anesthesia PreOpFiled: 03/25/2017 10:33 AMNote Text:REGIONAL ANESTHESIOLOGY DAY OF SURGERY NOTEPATIENT NAME: Leida HouMRN: [id number]: 1965Procedure(s) (LRB):LAPAROSCOPIC COLECTOMY SIGMOID COLON W/ COLORECTAL ANASTOMOSIS (N/A)LAPAROSCOPIC RESECTION BOWEL (N/A)Surgeon(s):Pelon Morel body mass index is 26.31 kg/(m2) as calculated from thefollowing: Height as of 03/17/17: 182.9 cm (6'). Weight as of 03/17/17: 88 kg (194 lb).ASA Class: 4Adequate NPO status: YesAllergies:ALLERGIESAllerg en Reactions- Codeine Other: See Comments Pt. States causes nauseaAirway Assessment: MP 1; Neck ROM: Full ROM without neurologic symptoms;Airway Evaluation: Short Thyromental DistanceDentition: Teeth intactmultiple missing, poor dentition, none looseSymptoms of Sleep Apnea: DeniesMost recent lab results:No results found for this basename:Hb,HCT,K,Plt,PTSEC, APTT,INR,Creat,hcg,uhcgEKG:R eviewed LVH, NSRVitals: 947BP: 124/71Pulse: 88Resp: 16Temp: (!) 35.9 ?C (96.6 ?F)TempSrc: Temporal ArterySpO2: 99%Previous Anesthesia: No history of adverse event Family history ofanesthetic problems: NoneAdditional Physical Exam:Lungs: Lungs clear to auscultation. Good diaphragmatic excursion.Cardiac: Normal S1 and S2; no rubs, no murmurs and no gallopsAdditional pertinent findings: N/A no peripheral edemaOther Medical Problems/ Important Considerations:Denies chest pain and SOB with exertion. Able to walk 2-3 miles and climbstairs without CP, does redquire rest if doing strenous activityGERD well controlled with no positional symptoms.NYHA class 2, EF=25% on 2016 echo all cardiology from OSH, cards stateslow risk but pt has AICD and low EF so at least moderate cardiac risk forsurgeryReordered CBC as it is from 02/11Chronic Beta Supa medication administered within 24 hours: YesAnesthetic risks, benefits, alternatives, personnel and consent discussed:YesPatient agrees to proceed: YesBlood Products: Will accept Blood/Blood ProductsAnesthetic Plan: General ETT; arterial linePain Management Plan: Parenteral or Oral discussed ROOT protocol withpatient and benefits of low opioid anesth.[facility] Chart ReviewACTIVE PROBLEM LISTSmall Bowel ObstructionNo past medical history on file.No past surgical history on file.No family history on file.Social History:Social HistorySubstance Use Topics- Smoking status: Former Smoker- Smokeless tobacco: Current User- Alcohol use Not on fileNo current facility-administered medications on file prior to encounter.No current outpatient prescriptions on file prior to encounter.Inpatient medications reviewed in [facility].I have interviewed and examined the patient. I have reviewed the medicalrecord and/or the pre-anesthesia evaluation, pertinent labs, and testresults.Significant changes in the patient's condition since the History andPhysical, not otherwise documented in primary service progress notes: NoThis contains updated information obtained within 48 hours ofSurgery/Procedure.SIGNATROSALIA E: Luis Arthur MD PATIENT NAME: Leida CosmeTE: March 25, 2017 : 9:53 AM PAGER/CONTACT #: [facility] BRIEF OP NOTon 03-25-2017 BRIEF OP NOT HNO ID: [id number] thor: Ritchie Stone (Fel)Service: ColorectalAuthor Type: FellowType: Brief Op NoteFiled: 03/25/2017 7:14 PMNote Text:BRIEF OPERATIVE NOTE - COLORECTAL SURGERYLog ID: [id number]/Procedure Date: 03/25/2017Incision/Procedure Start Time: 3:25 PMIncision Close/Procedure End Time:Surgeon(s) and Assistant Manager/Embalmer(s):Surgeon(s) and Role: * Pelon Cortez - Primary * Ritchie Stone (Fel) - Fellow * Chino العراقي - Resident - Assisting * Mariano Emerson - AssistingNo Additional StaffProcedures and Anesthesia:1. Laparoscopic adhesiolysis2. Open sigmoid colectomy3. Open small bowel resection x24. Adhesiolysis5. Appendectomy6. Drainage of pelvic abscess7. EEA anastomosisStoma Type: N/AFindings: multiple loops + appendix adherent to perforated chronicdiverticulitis. Intraop frozen section negative for cancerEstimated Blood Loss: 100 mlSpecimens: sigmoid, small bowel x2, appendixDiagnosis Code(s): Pre-Op Diagnosis Codes: * Small bowel obstruction [K56.609]Postop Diagnosis: sameDrains: Yes, MITCHEL in pelvisWound Classification: Class 4, operative dirty wound with fecalcontaminationComplicati ons: NoneSIGNATURE: Ritchie Stone MD PATIENT NAME: Leida CosmeTE: March 25, 2017 : 7:12 PM PAGER/CONTACT #: [phone] [facility] CBC and Differentialon 03-25 Abs Baso <0.03 Normal <0.11 [facility] Comment on above: Performed By: #### C BCDIF ####[place] [phone] Abs Stonewall 0.51 k/uL Normal <0.87 [facility] Comment on above: Performed By: #### C BCDIF ####[place] [address] Abs Neut 6.39 k/uL Normal 1.45-7.50 [facility] Comment on above: Performed By: #### C BCDIF ####[place] [address] Basophils/100 WBC Auto (Bld) 0.1 % Normal [facility] Comment on above: Performed By: #### C BCDIF ####[place] [address] DTYPE Auto Diff Normal [facility] Comment on above: Performed By: #### C BCDIF ####[place] [address] Eosinophils 0.11 10*3/uL Normal <0.46 [facility] Comment on above: Performed By: #### C BCDIF ####[place] [address] Eosinophils/100 leukocytes 1.3 % Normal [facility] Comment on above: Performed By: #### C BCDIF ####[place] [phone] Erythrocyte distribution width Auto Ratio (RBC) 13.2 % Normal 11.5-15.0 [facility] Comment on above: Performed By: #### C BCDIF ####[place] [phone] Erythrocytes (RBC) 4.89 10*6/uL Normal 4.20-6.00 [facility] Comment on above: Performed By: #### C BCDIF ####[place] [phone] Hematocrit (HCT) 41.7 % Normal 39.0-51.0 [facility] Comment on above: Performed By: #### C BCDIF ####[place] [phone] Hemoglobin mass conc (Bld) 14.6 g/dL Normal 13.0-17.0 [facility] Comment on above: Performed By: #### C BCDIF ####[place] [phone] Lymphocytes 1.55 10*3/uL Normal 1.00-4.00 [facility] Comment on above: Performed By: #### C BCDIF ####[place] [phone] Lymphocytes/100 leukocytes 18.1 % Normal [facility] Comment on above: Performed By: #### C BCDIF ####[place] [phone] MCH 29.9 pG Normal 26.0-34.0 [facility] Comment on above: Performed By: #### C BCDIF ####[place] [phone] MCHC mass conc (RBC) 35.0 g/dL Normal 30.5-36.0 [facility] Comment on above: Performed By: #### C BCDIF ####[place] [phone] MCV 85.3 fL Normal 80.0-100.0 [facility] Comment on above: Performed By: #### C BCDIF ####[place] [phone] Monocytes/100 leukocytes 6.0 % Normal [facility] Comment on above: Performed By: #### C BCDIF ####[place] [phone] Neutrophils/100 WBC Auto (Bld) 74.5 % Normal [facility] Comment on above: Performed By: #### C BCDIF ####[place] [phone] Platelet mean volume (PMV) 10.8 fL Normal 9.0-12.7 [facility] Comment on above: Performed By: #### C BCDIF ####[facility] [place], [place] [phone] Platelets 126 10*3/uL Low 150-400 [facility] Comment on above: Performed By: #### C BCDIF ####[facility] [place], [place] [phone] WBC (Leukocytes) 8.57 10*3/uL Normal 3.70-11.00 [facility] Comment on above: Performed By: #### C BCDIF ####[facility] [place], [place] [phone] Confirm Blood Typeon 018 ABO/RH(D) Positive Normal [facility] Comment on above: Performed By: #### C ONABO ####[facility] [place], [place] [phone] HISTORY PHYSICALon 8 HISTORY PHYSICAL HNO ID: [id number] thor: Ritchie Stone (Fel)Service: ColorectalAuthor Type: FellowType: HANDPFiled: 03/25/2017 2:56 PMNote Text:UPDATED PROCEDURAL HISTORY AND PHYSICAL EXAMINATIONSERVICE DATE: 03/25/2017SERVICE TIME: 3pmPHYSICAL EXAM MUST BE COMPLETED ON ADMISSIONThe History and Physical (completed in the past 30 days) has been reviewedand the patient has been examined. The contents accurately reflect thepatient's condition with the following additions or revisions since theHANDP was completed.ASA Class: 2Examination indicates no changes.AIRWAY:LUNGS: Lungs clear to auscultation, Good diaphragmatic excursionCARDIAC: Normal S1 and S2; no rubs, murmurs, or gallopsProvisional Diagnosis/Treatment Plan: laparoscopic, possible open LAR withSBR possible stomaThis HANDP can be found in the Electronic Medical Record.SIGNATURE: Ritchie Stone MD PATIENT NAME: Leida HouDATE: March 25, 2017 : 2:56 PM PAGER: [phone] [facility] NURSING PROGon 03-25-2017 NURSING PROG HNO ID: [id number] thor: Stephanie (Rn) JENARO Gonzaleservice: (none)Author Type: Registered NurseType: Nursing Progress NoteFiled: 03/25/2017 4:56 PMNote Text: Nursing Progress NotePatient Name: Leida HouMRN: [id number] Location: [place] [id number] ____Daily Note:1540- family notified of start of [id number] family updatedThis note was completed by: Stephanie Gonzales RN [facility] OPERATIVE NOon 03-25-2017 OPERATIVE NO HNO ID: [id number] thor: Pelon MolinaeService: ColorectalAuthor Type: PhysicianType: Operative ReportFiled: 04/02/2017 3:06 PMNote Text:[facility] - Operative ReportLEIDA HOUDOB: 1965 AGE: 51 SEX: MMRN: [id number] ACCTNUM: [id number] SVC: INTM LOCATION: [address] PHYSICIAN: Pelon Cortez M.D.DATE OF PROCEDURE: 03/25/2017PREOPERATIVE DIAGNOSIS: Severe diverticulitis and bowel obstruction.POSTOPERATIVE DIAGNOSIS: Severe diverticulitis and bowel obstruction.NAME OF OPERATION:1. 59868, proctosigmoidectomy, anterior low pelvic anastomosis.2. 83666, small-bowel resection with primary anastomosis.3. Additionally, with a suture of small intestine syndrome, 177999.4. We did a takedown of the splenic flexure.5. Omental pedicle flap.6. Flexible sigmoidoscopy.SURGEON: Pelon Cortez M.D.ACCESS SERVICES LIBRARIAN: NONEANESTHESIA:PROCEDURE: Mr. Hou was brought to the operating room, and he wasplaced in lithotomy position. Laparoscopy was performed through aninfraumbilical balloon port and then converted to hand assist.Because of the severity of the phlegmon and strictured pelvis, therewere multiple small bowel loops plastered and intimately inherent anddensely adherent to the sigmoid colon. There was a 7-cm cement-likearea adherent to the left anterior abdominal wall with the small bowelloops adherent. We dissected laparoscopically for about 45 minutes karo hour. Even with the hand assist device and at some point could notphysically with the laparoscopic tools removed the colon from theanterior abdominal wall. We then converted to a lower midlinelaparotomy. Through this incision, we safe identified the left andright ureter. The left ureter was densely adherent to the phlegmon andcavity at this point with sharp dissection staying on the colon side and the perforation was involving the left ureter, so we sent it tofrozen section. The biopsies confirmed that it was benign, so then wecut along the colon side to preserve the left ureter, but requiredcomplete skeletonization of the left ureter and full ureterolysis onthat side. We did not detect any gross injuries, but there was possiblefor microscopic injury. I explained that to the family the other case.We continued our dissection throughout the left pelvis and into the lowerpelvis, and we were able to elevate the entire sigmoid colon out of thepelvis at this point. At this point, we safely divided the mesorectumwith Yuni clamps and 0 Vicryl ties and took down the anterior peritonealreflection to find a soft area of normal rectum and divided the proximalto mid rectum with TA stapler. We then divided proximally and workedintramesenteric with the LigaSure to complete the resection. At thispoint, we turned our attention to taking down the entire splenicflexure. We took down the splenic flexure with sharp dissectionand then raised the lengthy omental pedicle flap across the transversecolon. At this point, all the small bowel loops that were denselyadherent to the colon and plastered that had been taken offlaparoscopically were inspected. Approximately 10 cm from the ileocecalvalve, this suture repair of serosal area of the small intestine.For approximately 50 cm proximal, we did a small bowel resection in an area that appeared to be chronically kinked involving thediverticulitis and was so tight and strictured upon itself with thesecondary tissue from the colon that we did resection. 40 cm proximalto that with an identical area, there were no enterotomies orperforations, but due to the mouth of the phlegmon and thickening ofthe small bowel loops, we did an additional small bowel resection.Both small bowel resections were done with 60 blue PHILLIP staplersresecting 8 cm of small bowel and a [id number] anastomosis wasperformed and closing with the TA stapler and suture. Next, an anvil was placed in the descending colon and had fully been mobilized, and it wasdropped into the pelvis. EEA was inserted into the anal canal into therectum, and an end-to-end anastomosis was done. The omental pediclewas dropped in the pelvis, and the flexible sigmoidoscopy was done topass as an air leak test, and there was no evidence of leak. A flatJP drain was laid in the pelvis. The fascia was closed, and tripleantibiotics were used on the skin, and 0-2 with andre. Skin wasclosed with andre. He was transferred to Recovery in good condition.Pelon Cortez M.D.SurgeryBC:[id number] :03/27/2017jhD: 03/26/2017 08:59:28T: 03/26/2017 18:45:31Job #: [id number] Normal [facility] SURGICAL PATHOLOGYon 018 SURGICAL PATHOLOGY ADDENDUM PRESENT [facility]: [id number] Physician: PELON CORTEZ MD FINAL DIAGNOSIS1. Portion of sigmoid colon, excision (A) - Segments of colon with chronicactive inflammation and inflamed granulation tissue.2. Appendix, excision (B) - Appendix with diverticular disease, acuteserositis, and fibrous adhesions.3. Small bowel, segmental resection (C) - Patchy chromic active enteritiswith ulcer, pyloric gland metaplasia, fibroinflammatory adhesions, andperienteric abscess with fistula formation (see comment).4. Sigmoid colon, resection (D) - Diverticular disease with patchy chronicinflammation, hemosiderin-laden macrophages, acute serositis, and fibrousadhesions.- Benign lymph nodes.DIMA/nahun 03/30/20177156YOSSCMF3. The presence of a fistula tract as well as transmural lymphoidaggregates in some areas without associated mucosal ulceration at leastraises consideration for Crohn's disease. That being said, no granulomasare identified. There is no evidence of dysplasia or malignancy. Given thepresence of an ulcer, an immunohistochemical stain for cytomegalovirus(CMV) has been ordered, and the result will be reported in an addendum.Blake Fuentes M.D.(Electronic Signature) SPECIME N SUBMITTEDA: SIGMOID COLON B: APPENDIX C: SMALL BOWEL D: SIGMOID COLON ADDENDUM Date Ordered: 04/01/2017 Date Reported: 04/01/2017 An immunohistochemical stain for CMV performed on block C20 is negative.Laboratory Developed Test (LDT) Disclaimer:Positive and negative controls stain appropriately. Performancecharacteristics of immunohistochemical, immunofluorescent and chromogenicin-situ hybridization tests have been determined by [facility] [place] ([facility]) vicky manner consistent with CLIA requirements. One or more of these tests havenot been cleared or approved by the FDA. [facility] is regulated under CLIA asqualified to perform high-complexity testing. These tests are used forclinical purposes. They should not be regarded as investigational or forresearch.JEL/kll 03/31/2017Addendum Pathologist: Blake Fuentes M.D.Electronic Signature CLINICAL DATASMALL BOWEL OBSTRUCTIONINTRAOPERATIVE CONSULT DIAGNOSISFSA1: Sigmoid colon - Fibrosis, organizing granulation tissue and benigncolonic type mucosa. (Dr. Gaston)Intraoperative diagnosis performed at [facility], [address] [place], [place] [address]AEAPX DESCRIPTIONA. Received fresh for frozen section diagnosis designated sigmoid colon are two irregularly-shaped segments of benitez to pink to white rubbery tissueaggregating to 2.8 x 1.5 x 0.6 cm. The specimen is totally submitted forfrozen and for permanent in one cassette. BF/rw 03/26/2017B. Received in formalin designated appendix is an appendix measuring 3.8cm in length by 0.8 cm in diameter. The appendix is almost completelyencapsulated in a fibrofatty tissue with minimally covered serosa which istan-pink and smooth. The line of resection is inked black. Sectioning ofthe tip reveals the tip is serpiginous, wraps around, and is adhered to aproximal portion of the appendix. There are hemorrhagic adhesions presentnear the tip. The lumen is grossly unremarkable with no fecalith, purulentmaterial or stones identified. The wall of the appendix averages 0.5 cm inthickness with no lesions or perforations identified. The mesoappendix hasadherent hemorrhagic material on the external surface. The appendix istotally submitted as follows: B1 shave appendiceal and mesoappendicealmargin, B2 cross sections mid appendix, B3-B6 tip of appendix seriallysectioned in the longitudinal plane.C. Received in formalin designated small bowel are multiple unorientedsegments of bowel. The first segment of bowel measures 9 cm in length andranges in circumference from 3.5 to 8.5 cm. The one margin is inked blue,the opposing margin is inked orange. Located 4 cm from the blue margin, thelumen is narrowed. The mucosal surface is benitez-pink with normal mucosalridges. The wall of the bowel ranges in thickness from 0.6 1.1 cm. Theserosal aspect is benitez-purple with hemorrhagic adhesions near the bluemargin. No masses are grossly identified. The attached soft tissue isgrossly unremarkable. The second segment of bowel measures 14.3 cm inlength by 5.8 cm in circumference. The segment of bowel is unoriented. Onemargin is inked yellow, the opposing margin is inked green. The segment ofbowel is adhered to itself, making it U shaped. The wall of the bowelaverages 0.7 cm in thickness. The serosal aspect is purple with hemorrhagicadhesions. No masses or perforations are identified. The last segment ofbowel is unoriented measuring 5.5 cm in length by 5.2 cm in circumference.One margin is inked black, the opposing margin is inked red. The mucosalsurface is benitez-pink with normal mucosal ridges. The wall of the bowelaverages 0.7 cm in thickness. No masses or perforations are identified. Theserosal aspect is pink-purple with multiple adhesions. Representativesections are submitted as follows: C1 perpendicular margins first segmentof bowel, C2 area where the lumen is narrowed first segment of bowel, R3qbrmwqfhu first segment of bowel, C4 cross section vessels first segment ofbowel, C5 perpendicular margin second segment of bowel, C6 area of boweladhered to itself, C7 second segment of bowel serosal adhesions, C8 crosssection vessels second segment of bowel, C9 perpendicular margin thirdsegment of bowel, C10 serosal adhesions third segment of bowel, L11-Z94bwxnsgbb thickened first segment of bowel, C19-C21 bowel adhered to itself.D. Received in formalin designated sigmoid colon is a segment of bowelmeasuring 18.5 cm in length and averaging 3 cm in circumference. Theproximal margin is inked blue, the distal margin is inked orange. Themucosal surface is benitez-pink with irregular mucosal ridges. Sectioningreveals multiple diverticula present. One of the diverticula is possiblyperforated. No other diverticula are grossly abscessed or perforated. Thewall of the bowel averages 1 cm in thickness. The serosal aspect is tanwith multiple hemorrhagic adhesions. Sectioning of the attached soft tissuereveals multiple benitez-pink lymph nodes measuring up to 0.5 cm in greatestdimension. Also received in the same container is an unoriented segment ofbowel measuring 2.2 cm in length by 5 cm in diameter. One margin has astaple line present which was removed and inked red. The opposing margin isinked black. The segment of bowel is grossly unremarkable. Representativesections are submitted as follows: D1 perpendicular margins, D2 possibleperforated diverticulum, D3-D4 diverticula, D5 serosal adhesions, D6-S1gmwxv segment of bowel perpendicular margins, D8 lymph nodes, D9 -T42jviywbxm abscessed area, D11-D13 additional sections.BF/dss 03/26/2017 Gross examination performed at [facility], [address] [place], [place] [address]Patient ID #: [id number] of Report: 03/31/2017Date of Procedure: 03/25/2017Date of Receipt: 03/25/2017Submitted by: PELON CORTEZ MDLocation: [id number] interpretation performed at [facility], [address] [place] [address]. Normal [facility] Comment on above: Performed By: #### P ATHS ####[place] [address] Type and Screenon 03-25-2017 ABO/RH(D) Positive Normal [facility] Comment on above: Performed By: #### T SCR ####[place] [phone] Antibody Screen Negative Normal [facility] Comment on above: Performed By: #### T SCR ####[place] [phone] PROGRESSon 03-18-2017 PROGRESS HNO ID: [id number] thor: Pelon Chaservice: (none)Author Type: PhysicianType: Progress NotesFiled: 03/18/2017 11:27 AMNote Text:Leida is a very pleasant 51-year-old gentleman today was contacted aboutlast week by Dr. Neo Recinos is a history of diverticulitis and recently developed a small bowelobstructionOn CT scans evident that he has an angulation of the small intestine andan area of inflamed diverticulitisJohn is an intermittent obstructive symptoms but is getting food down andnot acutely obstructed at this time despite concerning CT scanFor Leida were going to plan in doing a limited prep and a laparoscopicsigmoid colectomy and potential en bloc small bowel resectionBecause of the impressive CAT scan he does a roughly rare risk ofconversion open surgery and he understands thisWe'll perform the surgery within 1 week's time. Normal [facility] CNOVon 03-17-2017 CNOV Office Visit ([facility]) ----LEIDA HOU ([id number]) 1965 MDate Time Provider Department03/17/17 9:40 AM PELON CORTEZ [facility] During your visit today, we recorded the following information about you: Temperature Pulse Blood pressure Weight 97.6 degrees 78/minute 154/83 88 kg Height 1.829 Rosemary Stone MD 03/18/2017 11:27 AM SignedCC:Referred for colonic stricture 2/2 diverticulitisHPI:51M with 2 month history of bloating and right sided abdominal pain. Has ahistory of CABG in 2011 and developed a presumed diverticular abscess requiringIR drainage x2- no abdominal surgery.Interm- did well for approx 5 years. 2 months of pain with visible peristalsisin right abdomen. Has continued to eat a regular diet (avoiding nuts/popcorn),but notes early satiety.Denies blood in stool. Denies pneumaturia.Denies any unwanted weight loss.Last colonoscopy: 10/31/2015 severe sigmoid diverticulosis, polypectomy inascending colonCT 02/11/2017: fluid filled mid small bowel, distended up to 4.5cm with abruptnarrowing within the mid ileum at the level of the umbilicus. Wall thickeningand inflammatory changes of sigmoid colon. Diverticulosis of the ascendingcolon. Wall thickening of the urinary bladder with up to 13mm adjacent to thesigmoid colon.PMH: CAD s/p CABG, diverticulosis/diverticuliti s, vasectomy, broken R wrist s/pcastingFH: Ovarian Ca- maternal aunt. Pancreatic Ca- Paternal uncleSH: chewing tobacco- plans to quit, 6 pack beer/3-4 days a weekKatherine Jacobo, RN, RN 03/18/2017 11:27 AM SignedNew Patient ConsultREASON FOR VISITLeida Hou is a 51 year old male who is scheduled for a consult at the requestof Neo Solomon for Consult. My final recommendations will be communicatedback to the requesting physician by the way of the shared medical record, fax,or via [place] MailHistory of Present Illness:Recent history of SBOFUNCTIONAL STATUS: Do heavy work around the house, such as scrubbing floors,lifting or moving heavy furniture (8.00 METs)No past medical history on file.No past surgical history on file.No family history on file.Social HistorySubstance Use Topics- Smoking status: Former Smoker- Smokeless tobacco: Current User- Alcohol use Not on fileThe patient has the following:Problem List Noted Noted By Resolved Resolved By Small bowel obstruction 03/12/2017 Ana Luisa Yen No Overview Signed 03/12/2017 3:58 PM by Ana Luisa YEN Added automatically from request for surgery [id number] Outpatient Prescriptions:carvedilol (COREG) 25 mg tablet Take 25 mg by mouth twice daily with meals.Disp: Rfl:lisinopril (ZESTRIL, PRINIVIL) 10 mg tablet Take 10 mg by mouth once daily.Disp: Rfl:rosuvastatin (CRESTOR) 20 mg tablet Take 20 mg by mouth once daily. Disp: Rfl:omeprazole (PRILOSEC) 20 mg capsule Take 20 mg by mouth once daily. Disp: Rfl:docusate sodium (STOOL SOFTENER) 100 mg capsule Take 100 mg by mouth twicedaily. Disp: Rfl:aspirin, enteric coated (ASPIRIN, ENTERIC COATED) 81 mg EC tablet Take 81 mg bymouth once daily. Disp: Rfl:INSULIN GLARGINE,HUM.REC.ANLOG (LANTUS SUBCUTANEOUS) Inject 41 Unitssubcutaneously once daily. Disp: Rfl:No current facility-administered medications for this visit.CURRENT ALLERGIESALLERGIESAllergen Reactions- Codeine Other: See Comments Pt. States causes nauseaREVIEW OF SYSTEMSPAIN ASSESSMENT: PainPain Location: Abdomen-Right Lower QuadrantDescription: PressureDuration Amount of Time: 3Duration Units: MonthsFrequency: IntermittentIntervention: DeclinedGeneral: No weight loss, malaise or fevers.Neuro: negativeRespiratory: No history of current cough or dyspnea, or pneumonia in the past 6weeks. No history of respiratory/pulmonary symptoms or problemsCardiovascular:hx CABGGI: No history of GI symptoms or problems. No history of esophageal varices,recent ascites, or ETOH greater than 2 drinks per day.: No history of UTI in past 6 weeks. No history of renal failure. Notcurrently on or requiring dialysis. No history of symptoms or problems.V BELT FINISHER: Negative for abnormal vaginal bleeding, abnormal vaginal discharge. : DeniesEndocrine: No history of diabetes. Has not taken steroids within the past 30days. No history of endocrinological symptoms or problems.Hematology: No history of bleeding or clotting disorder. Pt is not takinganti-coagulation or platelet medications. No history of hematological symptomsor problems.Oncology: No history of CA metastasis, chemo within 30 days, or radiotherapywithin 90 days. Has not lost 10% of body wt in 6 months. No history ofoncological symptoms or problems.Psych: No history of psychiatric symptoms or problems.Musculoskeletal: Negative for joint pain or swelling, back pain or muscle pain.Skin: Negative for lesions, rash and itching.Anemia: NoPHYSICAL EXAMINATIONBP 154/83 Pulse 78 Temp 97.6 Ht 6' 0ANDquot; (1.83m) Wt 194 lb (88.0kg) SpO2 100% BMI 26.31 kg/(m2).General Appearance: Well appearing, alert, in no acute distress, well-hydrated,well nourished.Skin: Skin color, texture, turgor normal, no suspicious rashes or lesionsHead: Normocephalic, no masses, lesions, tenderness or abnormalitiesOropharynx: Lips, mucosa, and tongue normal, teeth and gums normal, oropharynxnormalNeck: Supple, no adenopathy; thyroid symmetric, normal size, no bruitsLungs: Lungs clear to auscultation. No wheezing, rhonchi, ralesHeart: RRR without murmur, gallop, or rubs. No ectopyExtremities: No deformities, edema, skin discoloration, clubbing or cyanosis.Good capillary refill.Neuro: Gait normal. Reflexes normal and symmetric. Sensation grossly intact.Abdomen: Normal abdominal exam, Negative CVA tendernessBradley Champagne, MDDATE: 03/17/17TIME: 10:20 Betzy Cortez MD 03/18/2017 11:27 AM Ruchi is a very pleasant 51-year-old gentleman today was contacted about lastweek by Dr. Neo PepeLeida is a history of diverticulitis and recently developed a small bowelobstructionOn CT scans evident that he has an angulation of the small intestine and anarea of inflamed diverticulitisLeida is an intermittent obstructive symptoms but is getting food down and notacutely obstructed at this time despite concerning CT scanFor Leida were going to plan in doing a limited prep and a laparoscopic sigmoidcolectomy and potential en bloc small bowel resectionBecause of the impressive CAT scan he does a roughly rare risk of conversionopen surgery and he understands thisWe'll perform the surgery within 1 week's time.Referring Provider: NEO SOLOMON [[id number]]Allergies As of Date: 03/17/2017 Noted Allergy ReactionCODEINE 03/17/2017 14 - Other: See Comments Comments: Pt. States causes nauseaDate Reviewed: 03/17/2017Reviewed by: Sera Mcdonough Ma - Fully AssessedReason for Visit: Consult [173]Primary Visit Diagnosis:SBO (small bowel obstruction) [K56.609] Other Visit Diagnoses:Diverticulosis of large intestine without hemorrhage [K57.30] Preoperative examination [Z01.818]Order(s):TYPE + SCREEN,30 DAY [ORJLAJ10] Order #: [id number] FUTURE CONFIRM BLOOD TYPE [SQCONABO] Order #: [id number] FUTURE CBC + DIFF [SQCBCDIF] Order #: [id number] FUTURE COMP METABOLIC PANEL [SQCMP] Order #: [id number] FUTURE HANDP FOR SURGERY [[id number]] Order #: [id number] metroNIDAZOLE (FLAGYL) 500 mg tabletTake 1 tablet by mouth three times daily for 1 day. Take 1 tablet at 6pm, 7pm, and 11pm, the evening prior to surgery.Disp: 3 tabletRfl: 0 neomycin 500 mg tabletTake 2 tablets by mouth three times daily for 1 day. Take 2 tablet at 6pm, 7pm, and 11pm the evening prior to surgery.Disp: 6 tabletRfl: 0Prescriptions as of 03/17/2017 Sig: CARVEDILOL 25 MG TABLET Take 25 mg by mouth twice daphne* LISINOPRIL 10 MG TABLET Take 10 mg by mouth once delma* ROSUVASTATIN 20 MG TABLET Take 20 mg by mouth once delma* OMEPRAZOLE 20 MG CAPSULE,ANDRES* Take 20 mg by mouth once delma* DOCUSATE SODIUM 100 MG CAPSULE Take 100 mg by mouth twice da* ASPIRIN 81 MG TABLET,DELAYED * Take 81 mg by mouth once delma* LANTUS SUBCUTANEOUS Inject 41 Units subcutaneousl* METRONIDAZOLE 500 MG TABLET Take 1 tablet by mouth three * NEOMYCIN 500 MG TABLET Take 2 tablets by mouth three*Problem List As Of Date 03/17/2017 Noted Resolved Small bowel obstruction [K56.609] INVALID FOR* More...Prescriptions ordered this encounter Disp Refills Start End METRONIDAZOLE 500 MG TABLET 3 ta* 0 03/17/2017 03/18/2017 Route: ORAL Sig: Take 1 tablet by mouth three times daily for 1 day. Take 1 tablet at 6pm, 7pm, and 11pm, the evening prior to surgery. Cosign accepted by PELON CORTEZ MD[[id number]] on 03/18/2017 11:27 AM NEOMYCIN 500 MG TABLET 6 ta* 0 03/17/2017 03/18/2017 Route: ORAL Sig: Take 2 tablets by mouth three times daily for 1 day. Take 2 tablet at 6pm, 7pm, and 11pm the evening prior to surgery. Cosign accepted by PELON CORTEZ MD[[id number]] on 03/18/2017 11:27 AMEncounter Number: [id number] Status:Closed by PELON CORTEZ MD on 03/18/17 [facility] PROGRESSon 03-17-2017 PROGRESS HNO ID: [id number] thor: Lashell (Rn) Jacobo, JENAROervice: (none)Author Type: Registered NurseType: Progress NotesFiled: 03/18/2017 11:27 AMNote Text:New Patient ConsultREASON FOR VISITLeida Hou is a 51 year old male who is scheduled for a consult at [facility] of Neo Solomon for Consult. My final recommendations will becommunicated back to the requesting physician by the way of the sharedmedical record, fax, or via US MailHistory of Present Illness:Recent history of SBOFUNCTIONAL STATUS: Do heavy work around the house, such as scrubbingfloors, lifting or moving heavy furniture (8.00 METs)No past medical history on file.No past surgical history on file.No family history on file.Social HistorySubstance Use Topics- Smoking status: Former Smoker- Smokeless tobacco: Current User- Alcohol use Not on fileThe patient has the following:Problem List Noted Noted By Resolved Resolved By Small bowel obstruction 03/12/2017 Ana Luisa Yen No Overview Signed 03/12/2017 3:58 PM by Ana Luisa YEN Added automatically from request for surgery [id number] Outpatient Prescriptions:carvedilol (COREG) 25 mg tablet Take 25 mg by mouth twice daily withmeals. Disp: Rfl:lisinopril (ZESTRIL, PRINIVIL) 10 mg tablet Take 10 mg by mouth oncedaily. Disp: Rfl:rosuvastatin (CRESTOR) 20 mg tablet Take 20 mg by mouth once daily. Disp:Rfl:omeprazole (PRILOSEC) 20 mg capsule Take 20 mg by mouth once daily. Disp:Rfl:docusate sodium (STOOL SOFTENER) 100 mg capsule Take 100 mg by mouth twicedaily. Disp: Rfl:aspirin, enteric coated (ASPIRIN, ENTERIC COATED) 81 mg EC tablet Take 81mg by mouth once daily. Disp: Rfl:INSULIN GLARGINE,HUM.REC.ANLOG (LANTUS SUBCUTANEOUS) Inject 41 Unitssubcutaneously once daily. Disp: Rfl:No current facility-administered medications for this visit.CURRENT ALLERGIESALLERGIESAllergen Reactions- Codeine Other: See Comments Pt. States causes nauseaREVIEW OF SYSTEMSPAIN ASSESSMENT: PainPain Location: Abdomen-Right Lower QuadrantDescription: PressureDuration Amount of Time: 3Duration Units: MonthsFrequency: IntermittentIntervention: DeclinedGeneral: No weight loss, malaise or fevers.Neuro: negativeRespiratory: No history of current cough or dyspnea, or pneumonia in thepast 6 weeks. No history of respiratory/pulmonary symptoms or problemsCardiovascular:hx CABGGI: No history of GI symptoms or problems. No history of esophagealvarices, recent ascites, or ETOH greater than 2 drinks per day.: No history of UTI in past 6 weeks. No history of renal failure. Notcurrently on or requiring dialysis. No history of symptoms or problems.V BELT FINISHER: Negative for abnormal vaginal bleeding, abnormal vaginal discharge. : DeniesEndocrine: No history of diabetes. Has not taken steroids within the past30 days. No history of endocrinological symptoms or problems.Hematology: No history of bleeding or clotting disorder. Pt is not takinganti-coagulation or platelet medications. No history of hematologicalsymptoms or problems.Oncology: No history of CA metastasis, chemo within 30 days, orradiotherapy within 90 days. Has not lost 10% of body wt in 6 months. Nohistory of oncological symptoms or problems.Psych: No history of psychiatric symptoms or problems.Musculoskeletal: Negative for joint pain or swelling, back pain or musclepain.Skin: Negative for lesions, rash and itching.Anemia: NoPHYSICAL EXAMINATIONBP 154/83 Pulse 78 Temp 97.6 Ht 6' 0 (1.83m) Wt 194 lb (88.0kg) SpO2 100% BMI 26.31 kg/(m2).General Appearance: Well appearing, alert, in no acute distress,well-hydrated, well nourished.Skin: Skin color, texture, turgor normal, no suspicious rashes or lesionsHead: Normocephalic, no masses, lesions, tenderness or abnormalitiesOropharynx: Lips, mucosa, and tongue normal, teeth and gums normal,oropharynx normalNeck: Supple, no adenopathy; thyroid symmetric, normal size, no bruitsLungs: Lungs clear to auscultation. No wheezing, rhonchi, ralesHeart: RRR without murmur, gallop, or rubs. No ectopyExtremities: No deformities, edema, skin discoloration, clubbing orcyanosis. Good capillary refill.Neuro: Gait normal. Reflexes normal and symmetric. Sensation grosslyintact.Abdomen: Normal abdominal exam, Negative CVA tendernessCEZAR MorelandATE: 03/17/17TIME: 10:20 AM [facility] PROGRESS HNO ID: [id number] thor: Ritchie (Alex Arnold: (none)Author Type: FellowType: Progress NotesFiled: 03/18/2017 11:27 AMNote Text:CC:Referred for colonic stricture 2/2 diverticulitisHPI:51M with 2 month history of bloating and right sided abdominal pain. Has ahistory of CABG in 2011 and developed a presumed diverticular abscessrequiring IR drainage x2- no abdominal surgery.Interm- did well for approx 5 years. 2 months of pain with visibleperistalsis in right abdomen. Has continued to eat a regular diet(avoiding nuts/popcorn), but notes early satiety.Denies blood in stool. Denies pneumaturia.Denies any unwanted weight loss.Last colonoscopy: 10/31/2015 severe sigmoid diverticulosis, polypectomy inascending colonCT 02/11/2017: fluid filled mid small bowel, distended up to 4.5cm withabrupt narrowing within the mid ileum at the level of the umbilicus. Wallthickening and inflammatory changes of sigmoid colon. Diverticulosis ofthe ascending colon. Wall thickening of the urinary bladder with up to13mm adjacent to the sigmoid colon.PMH: CAD s/p CABG, diverticulosis/diverticuliti s, vasectomy, broken Rwrist s/p castingFH: Ovarian Ca- maternal aunt. Pancreatic Ca- Paternal uncleSH: chewing tobacco- plans to quit, 6 pack beer/3-4 days a week Normal [facility] NURSING PROGon 03-13-2017 NURSING PROG HNO ID: [id number] thor: Annemarie (Rn) Rosalee, JENAROervice: (none)Author Type: Registered NurseType: Nursing Progress NoteFiled: 03/13/2017 11:47 AMNote Text:03/13 11:[address] Dr[address] cortez's office and spoke with Ana Luisa and julius. is to be admitted the day before surgery and will have all testingdone on admit. She stated No PACC needed. VICKI Shepherd [facility] HOSPon 03-12-2017 HOSP Patient:Misty Hou RN: Height:6' 0 (1.829 m)Weight:194 lb (87.998 kg)Outpatient Medications as of 03/25/17:carvedilol (COREG) 25 mg tabletlisinopril (ZESTRIL, PRINIVIL) 10 mg tabletrosuvastatin (CRESTOR) 20 mg tabletomeprazole (PRILOSEC) 20 mg capsuleINSULIN GLARGINE,HUM.REC.ANLOG (LANTUS SUBCUTANEOUS)docusate sodium (STOOL SOFTENER) 100 mg capsuleaspirin, enteric coated (ASPIRIN, ENTERIC COATED) 81 mg EC tabletAdmission/Clinic Administered Medications as of 03/25/17:0.9% NaCl 2-10 mLheparin 5,000 Units injectioncefTRIAXone 2 g in sterile water 20 mL (ROCEPHIN)metroNIDAZOLE 500 mg PREMIX piggyback (FLAGYL)Problem List:Small bowel obstruction [K56.609]Allergies:CodeineDa te Verified: 03/25/17Lab ValuesLab Value Units Date High LowHEMA* 41.7 % 03/25/2017 51.0 39.0Progress Notes ([facility]):Ritchie Stone MD 03/18/2017 11:27 AM SignedCC:Referred for colonic stricture 2/2 diverticulitisHPI:51M with 2 month history of bloating and right sided abdominal pain. Has ahistory of CABG in 2011 and developed a presumed diverticular abscess requiringIR drainage x2- no abdominal surgery.Interm- did well for approx 5 years. 2 months of pain with visible peristalsisin right abdomen. Has continued to eat a regular diet (avoiding nuts/popcorn),but notes early satiety.Denies blood in stool. Denies pneumaturia.Denies any unwanted weight loss.Last colonoscopy: 10/31/2015 severe sigmoid diverticulosis, polypectomy inascending colonCT 02/11/2017: fluid filled mid small bowel, distended up to 4.5cm with abruptnarrowing within the mid ileum at the level of the umbilicus. Wall thickeningand inflammatory changes of sigmoid colon. Diverticulosis of the ascendingcolon. Wall thickening of the urinary bladder with up to 13mm adjacent to thesigmoid colon.PMH: CAD s/p CABG, diverticulosis/diverticuliti s, vasectomy, broken R wrist s/pcastingFH: Ovarian Ca- maternal aunt. Pancreatic Ca- Paternal uncleSH: chewing tobacco- plans to quit, 6 pack beer/3-4 days a weekLashell Centeno, RN, RN 03/18/2017 11:27 AM SignedNew Patient ConsultREASON FOR Geoffrey Blossom is a 51 year old male who is scheduled for a consult at the requestof Neo Solomon for Consult. My final recommendations will be communicatedback to the requesting physician by the way of the shared medical record, fax,or via [place] MailHistory of Present Illness:Recent history of SBOFUNCTIONAL STATUS: Do heavy work around the house, such as scrubbing floors,lifting or moving heavy furniture (8.00 METs)No past medical history on file.No past surgical history on file.No family history on file.Social HistorySubstance Use Topics- Smoking status: Former Smoker- Smokeless tobacco: Current User- Alcohol use Not on fileThe patient has the following:Problem List Noted Noted By Resolved Resolved By Small bowel obstruction 03/12/2017 Ana Luisa Yen No Overview Signed 03/12/2017 3:58 PM by Ana Luisa YEN Added automatically from request for surgery [id number] Outpatient Prescriptions:carvedilol (COREG) 25 mg tablet Take 25 mg by mouth twice daily with meals.Disp: Rfl:lisinopril (ZESTRIL, PRINIVIL) 10 mg tablet Take 10 mg by mouth once daily.Disp: Rfl:rosuvastatin (CRESTOR) 20 mg tablet Take 20 mg by mouth once daily. Disp: Rfl:omeprazole (PRILOSEC) 20 mg capsule Take 20 mg by mouth once daily. Disp: Rfl:docusate sodium (STOOL SOFTENER) 100 mg capsule Take 100 mg by mouth twicedaily. Disp: Rfl:aspirin, enteric coated (ASPIRIN, ENTERIC COATED) 81 mg EC tablet Take 81 mg bymouth once daily. Disp: Rfl:INSULIN GLARGINE,HUM.REC.ANLOG (LANTUS SUBCUTANEOUS) Inject 41 Unitssubcutaneously once daily. Disp: Rfl:No current facility-administered medications for this visit.CURRENT ALLERGIESALLERGIESAllergen Reactions- Codeine Other: See Comments Pt. States causes nauseaREVIEW OF SYSTEMSPAIN ASSESSMENT: PainPain Location: Abdomen-Right Lower QuadrantDescription: PressureDuration Amount of Time: 3Duration Units: MonthsFrequency: IntermittentIntervention: DeclinedGeneral: No weight loss, malaise or fevers.Neuro: negativeRespiratory: No history of current cough or dyspnea, or pneumonia in the past 6weeks. No history of respiratory/pulmonary symptoms or problemsCardiovascular:hx CABGGI: No history of GI symptoms or problems. No history of esophageal varices,recent ascites, or ETOH greater than 2 drinks per day.: No history of UTI in past 6 weeks. No history of renal failure. Notcurrently on or requiring dialysis. No history of symptoms or problems.V BELT FINISHER: Negative for abnormal vaginal bleeding, abnormal vaginal discharge. : DeniesEndocrine: No history of diabetes. Has not taken steroids within the past 30days. No history of endocrinological symptoms or problems.Hematology: No history of bleeding or clotting disorder. Pt is not takinganti-coagulation or platelet medications. No history of hematological symptomsor problems.Oncology: No history of CA metastasis, chemo within 30 days, or radiotherapywithin 90 days. Has not lost 10% of body wt in 6 months. No history ofoncological symptoms or problems.Psych: No history of psychiatric symptoms or problems.Musculoskeletal: Negative for joint pain or swelling, back pain or muscle pain.Skin: Negative for lesions, rash and itching.Anemia: NoPHYSICAL EXAMINATIONBP 154/83 Pulse 78 Temp 97.6 Ht 6' 0 (1.83m) Wt 194 lb (88.0kg) [id number]% BMI 26.31 kg/(m2).General Appearance: Well appearing, alert, in no acute distress, well-hydrated,well nourished.Skin: Skin color, texture, turgor normal, no suspicious rashes or lesionsHead: Normocephalic, no masses, lesions, tenderness or abnormalitiesOropharynx: Lips, mucosa, and tongue normal, teeth and gums normal, oropharynxnormalNeck: Supple, no adenopathy; thyroid symmetric, normal size, no bruitsLungs: Lungs clear to auscultation. No wheezing, rhonchi, ralesHeart: RRR without murmur, gallop, or rubs. No ectopyExtremities: No deformities, edema, skin discoloration, clubbing or cyanosis.Good capillary refill.Neuro: Gait normal. Reflexes normal and symmetric. Sensation grossly intact.Abdomen: Normal abdominal exam, Negative CVA tendernessCEZAR MorelandATE: 03/17/17TIME: 10:20 Betzy Cortez MD 03/18/2017 11:27 AM Ruchi is a very pleasant 51-year-old gentleman today was contacted about lastweek by Dr. Neo Recinos is a history of diverticulitis and recently developed a small bowelobstructionOn CT scans evident that he has an angulation of the small intestine and an areaof inflamed diverticulitisLeida is an intermittent obstructive symptoms but is getting food down and notacutely obstructed at this time despite concerning CT scanFor Leida were going to plan in doing a limited prep and a laparoscopic sigmoidcolectomy and potential en bloc small bowel resectionBecause of the impressive CAT scan he does a roughly rare risk of conversionopen surgery and he understands thisWe'll perform the surgery within 1 week's time. [facility] Vital Signs Date Time Vital Sign Value Performing Clinician Facility 10-05-2024 09:08-0400 Body height 182.9 cm Zenia Summers NP Work Phone: [facility] 10-05-2024 09:08-0400 Body mass index (BMI) [Ratio] 27.67 kg/m2 Zenia Summers REFUELER Work Phone: [facility] 10-05-2024 09:08-0400 Body weight 92.53 kg Zenia Summers NP Work Phone: [facility] 10-05-2024 09:08-0400 Diastolic blood pressure 78 mm[Hg] Zenia Summers REFUELER Work Phone: [facility] 10-05-2024 09:08-0400 Heart rate 85 /min Zenia Summers REFUELER Work Phone: [facility] 10-05-2024 09:08-0400 Respiratory rate 16 /min Zenia Summers REFUELER Work Phone: [facility] 10-05-2024 09:08-0400 SaO2% (BldA) [Mass fraction] 98 % Zenia Summers NP Work Phone: [facility] 10-05-2024 09:08-0400 Systolic blood pressure 138 mm[Hg] Zenia Summers REFUELER Work Phone: [facility] 05-16-2024 14:09-0400 Body height 182.9 cm Nohemi Phoenix MD Work Phone: [facility] 05-16-2024 14:09-0400 Body mass index (BMI) [Ratio] 26.99 kg/m2 Nohemi Phoenix MD Work Phone: [facility] 05-16-2024 14:09-0400 Body weight 90.27 kg Nohemi Phoenix MD Work Phone: [facility] 05-16-2024 14:09-0400 Diastolic blood pressure 84 mm[Hg] Nohemi Phoenix MD Work Phone: [facility] 05-16-2024 14:09-0400 Heart rate 89 /min Nohemi Phoenix MD Work Phone: [facility] 05-16-2024 14:09-0400 Respiratory rate 17 /min Nohemi Phoenix MD Work Phone: [facility] 05-16-2024 14:09-0400 SaO2% (BldA) [Mass fraction] 98 % Nohemi Phoenix MD Work Phone: [facility] 05-16-2024 14:09-0400 Systolic blood pressure 188 mm[Hg] Nohemi Phoenix MD Work Phone: [facility] 03-30-2024 15:55-0500 Body height 182.9 cm Chevy Herrera REFUELER Work Phone: [facility] 03-30-2024 15:55-0500 Body mass index (BMI) [Ratio] 26.72 kg/m2 Chevy Herrera REFUELER Work Phone: [facility] 03-30-2024 15:55-0500 Body weight 89.36 kg Chevy Herrera REFUELER Work Phone: [facility] 03-30-2024 15:55-0500 Diastolic blood pressure 78 mm[Hg] Chevy Herrera REFUELER Work Phone: [facility] 03-30-2024 15:55-0500 Heart rate 63 /min Chevy Herrera REFUELER Work Phone: [facility] 03-30-2024 15:55-0500 Respiratory rate 17 /min Chevy Herrera REFUELER Work Phone: [facility] 03-30-2024 15:55-0500 SaO2% (BldA) [Mass fraction] 97 % Chevy Herrera REFUELER Work Phone: [facility] 03-30-2024 15:55-0500 Systolic blood pressure 138 mm[Hg] Chevy Herrera REFUELER Work Phone: [facility] 03-04-2024 10:51-0500 Body height 182.9 cm Yonatan Dolce DPM FACFAS Work Phone: [facility] 03-04-2024 10:51-0500 Body mass index (BMI) [Ratio] 27.26 kg/m2 Yonatan Dolce DPM FACFAS Work Phone: [facility] 03-04-2024 10:51-0500 Body weight 91.17 kg Yonatan Dolce DPM FACFAS Work Phone: [facility] 03-04-2024 10:51-0500 Diastolic blood pressure 74 mm[Hg] Yonatan Dolce DPM FACFAS Work Phone: [facility] 03-04-2024 10:51-0500 Heart rate 77 /min Yonatan Dolce DPM FACFAS Work Phone: [facility] 03-04-2024 10:51-0500 Systolic blood pressure 126 mm[Hg] Yonatan Dolce DPM FACFAS Work Phone: [facility] 02-19-2024 10:17-0500 Body height 182.9 cm Yonatan Dolce DPM FACFAS Work Phone: [facility] 02-19-2024 10:17-0500 Body mass index (BMI) [Ratio] 27.26 kg/m2 Yonatan Dolce DPM FACFAS Work Phone: [facility] 02-19-2024 10:17-0500 Body weight 91.17 kg Yonatan Dolce DPM FACFAS Work Phone: [facility] 02-19-2024 10:17-0500 Diastolic blood pressure 77 mm[Hg] Yonatan Dolce DPM FACFAS Work Phone: [facility] 02-19-2024 10:17-0500 Heart rate 72 /min Yonatan Dolce DPM FACFAS Work Phone: [facility] 02-19-2024 10:17-0500 Systolic blood pressure 128 mm[Hg] Yonatan Dolce DPM FACFAS Work Phone: [facility] 02-12-2024 10:48-0500 Body height 182.9 cm Yonatan Dolce DPM FACFAS Work Phone: [facility] 02-12-2024 10:48-0500 Body mass index (BMI) [Ratio] 27.26 kg/m2 Yonatan Dolce DPM FACFAS Work Phone: [facility] 02-12-2024 10:48-0500 Body weight 91.17 kg Yonatan Dolce DPM FACFAS Work Phone: [facility] 02-12-2024 10:48-0500 Diastolic blood pressure 77 mm[Hg] Yonatan Dolce DPM FACFAS Work Phone: [facility] 02-12-2024 10:48-0500 Heart rate 73 /min Yonatan Dolce DPM FACFAS Work Phone: [facility] 02-12-2024 10:48-0500 Systolic blood pressure 128 mm[Hg] Yonatan Dolce DPM FACFAS Work Phone: [facility] 02-09-2024 14:43-0500 Body height 182.9 cm Casi Dolce DPM FACFAS Work Phone: [facility] 02-09-2024 14:43-0500 Body mass index (BMI) [Ratio] 27.67 kg/m2 Casi Dolce DPM FACFAS Work Phone: [facility] 02-09-2024 14:43-0500 Body weight 92.53 kg Casi Dolce DPM FACFAS Work Phone: [facility] 02-09-2024 14:43-0500 Diastolic blood pressure 75 mm[Hg] Casi Dolce DPM FACFAS Work Phone: [facility] 02-09-2024 14:43-0500 Heart rate 74 /min Casi Dolce DPM FACFAS Work Phone: [facility] 02-09-2024 14:43-0500 Systolic blood pressure 129 mm[Hg] Casi Dolce DPM FACFAS Work Phone: [facility] 02-01-2024 08:52-0500 Body height 182.9 cm Yonatan Dolce DPM FACFAS Work Phone: [facility] 02-01-2024 08:52-0500 Body mass index (BMI) [Ratio] 27.67 kg/m2 Yonatan Dolce DPM FACFAS Work Phone: [facility] 02-01-2024 08:52-0500 Body weight 92.53 kg Yonatan Dolce DPM FACFAS Work Phone: [facility] 02-01-2024 08:52-0500 Diastolic blood pressure 75 mm[Hg] Yonatan Dolce DPM FACFAS Work Phone: [facility] 02-01-2024 08:52-0500 Heart rate 72 /min Yonatan Dolce DPM FACFAS Work Phone: [facility] 02-01-2024 08:52-0500 Systolic blood pressure 128 mm[Hg] Yonatan Dolce DPM FACFAS Work Phone: [facility] 01-25-2024 10:23-0500 Body height 182.9 cm Yonatan Dolce DPM FACFAS Work Phone: [facility] 01-25-2024 10:23-0500 Body mass index (BMI) [Ratio] 27.67 kg/m2 Yonatan Dolce DPM FACFAS Work Phone: [facility] 01-25-2024 10:23-0500 Body weight 92.53 kg Yonatan Dolce DPM FACFAS Work Phone: [facility] 01-25-2024 10:23-0500 Diastolic blood pressure 77 mm[Hg] Yonatan Dolce DPM FACFAS Work Phone: [facility] 01-25-2024 10:23-0500 Heart rate 70 /min Yonatan Dolce DPM FACFAS Work Phone: [facility] 01-25-2024 10:23-0500 Systolic blood pressure 130 mm[Hg] Yonatan Dolce DPM FACFAS Work Phone: [facility] 01-13-2024 12:14-0500 Body height 182.9 cm Yonatan Dolce DPM FACFAS Work Phone: [facility] 01-13-2024 12:14-0500 Body mass index (BMI) [Ratio] 27.67 kg/m2 Yonatan Dolce DPM FACFAS Work Phone: [facility] 01-13-2024 12:14-0500 Body weight 92.53 kg Yonatan Dolce DPM FACFAS Work Phone: [facility] 01-13-2024 12:14-0500 Diastolic blood pressure 75 mm[Hg] Yonatan Dolce DPM FACFAS Work Phone: [facility] 01-13-2024 12:14-0500 Heart rate 72 /min Yonatan Dolce DPM FACFAS Work Phone: [facility] 01-13-2024 12:14-0500 Systolic blood pressure 129 mm[Hg] Yonatan Dolce DPM FACFAS Work Phone: [facility] 01-08-2024 10:01-0500 Body height 182.9 cm Yonatan Dolce DPM FACFAS Work Phone: [facility] 01-08-2024 10:01-0500 Body mass index (BMI) [Ratio] 27.67 kg/m2 Yonatan Dolce DPM FACFAS Work Phone: [facility] 01-08-2024 10:01-0500 Body weight 92.53 kg Yonatan Dolce DPM FACFAS Work Phone: [facility] 01-08-2024 10:01-0500 Diastolic blood pressure 77 mm[Hg] Yonatan Dolce DPM FACFAS Work Phone: [facility] 01-08-2024 10:01-0500 Heart rate 73 /min Yonatan Dolce DPM FACFAS Work Phone: [facility] 01-08-2024 10:01-0500 Systolic blood pressure 129 mm[Hg] Yonatan Rosado DPM FACFAS Work Phone: [facility] 01-07-2024 11:30-0500 Diastolic blood pressure 67 mm[Hg] Nohemi Phoenix MD Work Phone: [facility] 01-07-2024 11:30-0500 Heart rate 81 /min Nohemi Phoenix MD Work Phone: [facility] 01-07-2024 11:30-0500 Respiratory rate 20 /min Nohemi Phoenix MD Work Phone: [facility] 01-07-2024 11:30-0500 SaO2% (BldA) [Mass fraction] 96 % Nohemi Phoenix MD Work Phone: [facility] 01-07-2024 11:30-0500 Systolic blood pressure 130 mm[Hg] Nohemi Phoenix MD Work Phone: [facility] 01-07-2024 09:08-0500 Body temperature 98.4 [degF] Nohemi Phoenix MD Work Phone: [facility] 01-07-2024 08:40-0500 Inhaled oxygen flow rate 2 L/min Nohemi Phoenix MD Work Phone: [facility] 01-07-2024 06:44-0500 Body height 182.88 cm Nohemi Phoenix MD Work Phone: [facility] 01-07-2024 06:44-0500 Body weight 88.45 kg Nohemi Phoenix MD Work Phone: [facility] 01-06-2024 11:51-0500 Body height 182.88 cm [facility] 01-06-2024 11:51-0500 Body mass index (BMI) [Ratio] 26.4 kg/m2 [facility] 01-06-2024 11:51-0500 Body temperature 97.9 [degF] [facility] 01-06-2024 11:51-0500 Body weight 88.45 kg [facility] 01-06-2024 11:51-0500 Diastolic blood pressure 82 mm[Hg] [facility] 01-06-2024 11:51-0500 Heart rate 72 /min [facility] 01-06-2024 11:51-0500 Respiratory rate 16 /min [facility] 01-06-2024 11:51-0500 SaO2% (BldA) [Mass fraction] 97 % [facility] 01-06-2024 11:51-0500 Systolic blood pressure 132 mm[Hg] [facility] 01-04-2024 11:40-0500 Body height 182.9 cm Yonatan Dolce DPM FACFAS Work Phone: [facility] 01-04-2024 11:40-0500 Body mass index (BMI) [Ratio] 27.67 kg/m2 Yonatan Dolce DPM FACFAS Work Phone: [facility] 01-04-2024 11:40-0500 Body weight 92.53 kg Yonatan Dolce DPM FACFAS Work Phone: [facility] 01-04-2024 11:40-0500 Diastolic blood pressure 75 mm[Hg] Yonatan Dolce DPM FACFAS Work Phone: [facility] 01-04-2024 11:40-0500 Heart rate 71 /min Yonatan Dolce DPM FACFAS Work Phone: [facility] 01-04-2024 11:40-0500 Systolic blood pressure 128 mm[Hg] Yonatan Dolce DPM FACFAS Work Phone: [facility] 12-28-2023 10:36-0500 Body height 182.9 cm Yonatan Dolce DPM FACFAS Work Phone: [facility] 12-28-2023 10:36-0500 Body mass index (BMI) [Ratio] 27.67 kg/m2 Yonatan Dolce DPM FACFAS Work Phone: [facility] 12-28-2023 10:36-0500 Body weight 92.53 kg Yonatan Dolce DPM FACFAS Work Phone: [facility] 12-28-2023 10:36-0500 Diastolic blood pressure 75 mm[Hg] Yonatan Dolce DPM FACFAS Work Phone: [facility] 12-28-2023 10:36-0500 Heart rate 76 /min Yonatan Dolce DPM FACFAS Work Phone: [facility] 12-28-2023 10:36-0500 Systolic blood pressure 130 mm[Hg] Yonatan Dolce DPM FACFAS Work Phone: [facility] 12-23-2023 09:27-0400 Body height 182.9 cm Yonatan Dolce DPM FACFAS Work Phone: [facility] 12-23-2023 09:27-0400 Body mass index (BMI) [Ratio] 27.67 kg/m2 Yonatan Dolce DPM FACFAS Work Phone: [facility] 12-23-2023 09:27-0400 Body weight 92.53 kg Yonatan Dolce DPM FACFAS Work Phone: [facility] 12-23-2023 09:27-0400 Diastolic blood pressure 77 mm[Hg] Yonatan Dolce DPM FACFAS Work Phone: [facility] 12-23-2023 09:27-0400 Heart rate 84 /min Yonatan Dolce DPM FACFAS Work Phone: [facility] 12-23-2023 09:27-0400 Systolic blood pressure 129 mm[Hg] Yonatan Dolce DPM FACFAS Work Phone: [facility] 12-21-2023 10:07-0400 Body height 182.9 cm Yonatan Dolce DPM FACFAS Work Phone: [facility] 12-21-2023 10:07-0400 Body mass index (BMI) [Ratio] 27.67 kg/m2 Yonatan Dolce DPM FACFAS Work Phone: [facility] 12-21-2023 10:07-0400 Body weight 92.53 kg Yonatan Dolce DPM FACFAS Work Phone: [facility] 12-21-2023 10:07-0400 Diastolic blood pressure 78 mm[Hg] Yonatan Rosado DPM FACFAS Work Phone: [facility] 12-21-2023 10:07-0400 Heart rate 86 /min Yonatan Rosado DPM FACFAS Work Phone: [facility] 12-21-2023 10:07-0400 Systolic blood pressure 128 mm[Hg] Yonatan Rosado DPM FACFAS Work Phone: [facility] 12-16-2023 11:00-0400 Body height 182.9 cm Zenia Summers REFUELER Work Phone: [facility] 12-16-2023 11:00-0400 Body mass index (BMI) [Ratio] 27.67 kg/m2 Zenia Summers REFUELER Work Phone: [facility] 12-16-2023 11:00-0400 Body weight 92.53 kg Zenia Summers REFUELER Work Phone: [facility] 12-16-2023 11:00-0400 Diastolic blood pressure 82 mm[Hg] Zenia Summers REFUELER Work Phone: [facility] 12-16-2023 11:00-0400 Heart rate 78 /min Zenia Summers REFUELER Work Phone: [facility] 12-16-2023 11:00-0400 SaO2% (BldA) [Mass fraction] 97 % Zenia Summers REFUELER Work Phone: [facility] 12-16-2023 11:00-0400 Systolic blood pressure 130 mm[Hg] Zenia Summers REFUELER Work Phone: [facility] Healthcare Encounters Encounter Date Encounter Type Care Provider Facility Start: 10-05-2024 End: 10-05-2024 Bamboo flowsheet Zenia Summers REFUELER Work Phone: [facility] Start: 10-05-2024 End: 10-05-2024 Bamboo flowsheet Zenia Summers REFUELER Work Phone: [facility] Start: 10-05-2024 End: 10-05-2024 ambulatory ZENIA SUMMERS Not Available Start: 10-05-2024 End: 10-05-2024 Office outpatient visit 25 minutes Zenia Summers REFUELER Work Phone: [facility] Comment on above: Muscle spasm of back (Primary Dx); Intercostal pain Start: 09[facility]21-[facility] Start: 08-24-2024 ambulatory [facility] Start: 07-05-2024 End: 07-05-2024 ambulatory [facility] Start: 06-06-2024 ambulatory [facility] Start: 06-03-2024 ambulatory [facility] Start: 05-16-2024 End: 05-16-2024 Office outpatient visit 25 minutes Nohemi Phoenix MD Work Phone: [facility] Comment on above: Type 2 diabetes kailee itus with diabetic autonomic neuropathy, with long-term current use of insulin (CMS/[facility]) (Primary Dx); Type 2 diabetes mellitus with foot ulcer (CODE) ([facility]); Primary insomnia Start: 05-16-2024 End: 05-16-2024 ambulatory NOHEMI PHOENIX Not Available Start: 04-01-2024 ambulatory [facility] Start: 03-30-2024 End: 03-30-2024 Office outpatient visit 25 minutes Chevy Herrera REFUELER Work Phone: [facility] Comment on above: Acute bronchitis, un specified organism (Primary Dx); Acute cough; Hypertensive heart disease with heart failure (CMS/HCC); Gangrene, not elsewhere classified (CMS/HCC); Type 2 diabetes mellitus with foot ulcer (CODE) (CMS/HCC); Non-pressure chronic ulcer 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 (CMS/HCC); Ventricular tachycardia, unspecified (CMS/HCC); Unspecified systolic (congestive) heart failure (CMS/HCC); Heart failure, unspecified (CMS/HCC); Chronic systolic (congestive) heart failure (CMS/HCC) Start: 03-30-2024 End: 03-30-2024 ambulatory CHEVY HERRERA Not Available Start: 03-30-2024 End: 03-30-2024 Bamboo flowsheet Chevy Herrera REFUELER Work Phone: [facility] Start: 03-30-2024 End: 03-30-2024 Bamboo flowsheet Chevy Herrera REFUELER Work Phone: [facility] Start: 03-10-2024 ambulatory [facility] Start: 03-09-2024 ambulatory [facility] Start: 03-04-2024 End: 03-04-2024 Bamboo flowsheet Yonatan Zaida Mitchellce DPM FACFAS Work Phone: [facility] Start: 03-04-2024 End: 03-04-2024 Bamboo flowsheet Yonatan Mitchellce DPM FACFAS Work Phone: [facility] Start: 03-04-2024 End: 03-04-2024 Postop follow up visit related to original px Yonatan Zaida Dolce DPM FACFAS Work Phone: [facility] Comment on above: 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 (CMS/HCC) (Primary Dx); Amputation of left great toe (CMS/HCC) Start: 03-04-2024 End: 03-04-2024 ambulatory YONATAN ROSADO Not Available Start: 02-19-2024 End: 02-19-2024 Bamboo flowsheet Yonatan Cerda Dolce DPM FACFAS Work Phone: [facility] Start: 02-19-2024 End: 02-19-2024 Bamboo flowsheet Yonatan Zaida Dolce DPM FACFAS Work Phone: [facility] Start: 02-19-2024 End: 02-19-2024 Patient encounter procedure Yonatan Rosado DPM FACFAS Work Phone: [facility] Comment on above: 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 (CMS/HCC) (Primary Dx); Amputation of left great toe (CMS/HCC); Gastrocnemius equinus of left lower extremity; Gastrocnemius equinus of right lower extremity Start: 02-19-2024 End: 02-19-2024 ambulatory YONATAN ROSADO Not Available Start: 02-12-2024 End: 02-12-2024 Bamboo flowsheet Yonatan Rosado DPM FACFAS Work Phone: [facility] Start: 02-12-2024 End: 02-12-2024 Bamboo flowsheet Yonatan Rosado DPM FACFAS Work Phone: [facility] Start: 02-12-2024 End: 02-12-2024 Postop follow up visit related to original px Yonatan Rosado DPM FACFAS Work Phone: [facility] Comment on above: PAD (peripheral josiane ry disease) (CMS/HCC) (Primary Dx); Gangrene (CMS/HCC) Start: 02-12-2024 End: 02-12-2024 ambulatory YONATAN ROSADO Not Available Start: 02-11-2024 ambulatory [facility] Start: 02-09-2024 End: 02-09-2024 Patient encounter procedure Casi Rosado DPM FACFAS Work Phone: [facility] Comment on above: PAD (peripheral josiane ry disease) (CMS/HCC) (Primary Dx); Gangrene (CMS/HCC); Type II diabetes mellitus with neurological manifestations (CMS/HCC); Chronic ulcer of great toe of left foot with fat layer exposed (CMS/HCC) Start: 02-09-2024 End: 02-09-2024 Bamboo flowsheet Yonatan Rosado DPM FACFAS Work Phone: [facility] Start: 02-09-2024 End: 02-09-2024 Bamboo flowsheet Yonatan Rosado DPM FACFAS Work Phone: [facility] Start: 02-09-2024 End: 02-09-2024 ambulatory CASI ROSADO Not Available Start: 02-09-2024 End: 02-09-2024 Office outpatient visit 15 minutes Yonatan D Dolce DPM FACFAS Work Phone: [facility] Comment on above: 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 ([facility]/HCC) (Primary Dx); PAD (peripheral artery disease) ([facility]/HCC); Gangrene ([facility]/HCC); Acute osteomyelitis of ankle and foot, left ([facility]/HCC) Start: 02-09-2024 End: 02-09-2024 ambulatory YONATAN D DOLCE Not Available Start: 02-08-2024 ambulatory [facility] Start: 02-01-2024 End: 02-01-2024 Bamboo flowsheet Yonatan D Dolce DPM FACFAS Work Phone: [facility] Start: 02-01-2024 End: 02-01-2024 Bamboo flowsheet Yonatan D Dolce DPM FACFAS Work Phone: [facility] Start: 02-01-2024 End: 02-01-2024 ambulatory YONATAN D DOLCE Not Available Start: 02-01-2024 End: 02-01-2024 Office outpatient visit 15 minutes Yonatan D Dolce DPM FACFAS Work Phone: [facility] Comment on above: 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 ([facility]/HCC) (Primary Dx); PAD (peripheral artery disease) ([facility]); Gangrene ([facility]); Acute osteomyelitis of ankle and foot, left ([facility]) Start: 01-28-2024 ambulatory [facility] Start: 01-25-2024 End: 01-25-2024 Bamboo flowsheet Oynatan D Dolce DPM FACFAS Work Phone: [facility] Start: 01-25-2024 End: 01-25-2024 Bamboo flowsheet Yonatan D Dolce DPM FACFAS Work Phone: [facility] Start: 01-25-2024 End: 01-25-2024 Office outpatient visit 15 minutes Yonatan D Dolce DPM FACFAS Work Phone: [facility] Comment on above: 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 (CMS/HCC) (Primary Dx); PAD (peripheral artery disease) (CMS/HCC); Gangrene (CMS/HCC); 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, left (CMS/HCC) Start: 01-25-2024 End: 01-25-2024 ambulatory YONATAN ROSADO Not Available Start: 01-19-2024 End: 01-19-2024 ambulatory Artur Fields Facility:[facility] Start: 01-18-2024 End: 01-18-2024 Lab Drop off Yonatan Rosado [facility] Start: 01-18-2024 End: 01-18-2024 Telephone encounter Yonatan Rosado DPM FACFAS Work Phone: [facility] Start: 01-18-2024 End: 01-18-2024 ambulatory Yonatan Rosado Facility:[facility] Start: 01-13-2024 End: 01-13-2024 Bamboo flowsheet Yonatan Rosado DPM FACFAS Work Phone: [facility] Start: 01-13-2024 End: 01-13-2024 Bamboo flowsheet Yonatan Rosado DPM FACFAS Work Phone: [facility] Start: 01-13-2024 End: 01-13-2024 Telephone encounter Yonatan Rosado DPM FACFAS Work Phone: [facility] Start: 01-13-2024 End: 01-13-2024 Office outpatient visit 25 minutes Yonatan Rosado DPM FACFAS Work Phone: [facility] Comment on above: Gangrene (CMS/HCC) ( Primary Dx); PAD (peripheral artery disease) (CMS/HCC) Start: 01-13-2024 End: 01-13-2024 ambulatory YONATAN ROSADO Not Available Start: 01-12-2024 ambulatory [facility] Start: 01-08-2024 End: 01-08-2024 Bamboo flowsheet Yonatan Rosado DPM FACFAS Work Phone: [facility] Start: 01-08-2024 End: 01-08-2024 Bamboo flowsheet Yonatan Rosado DPM FACFAS Work Phone: [facility] Start: 01-08-2024 End: 01-08-2024 ambulatory YONATAN ROSADO Not Available Start: 01-08-2024 End: 01-08-2024 Office outpatient visit 25 minutes Yonatan Rosado DPM FACFAS Work Phone: [facility] Comment on above: PAD (peripheral josiane ry disease) (CMS/HCC) (Primary Dx); Gangrene ([facility]/HCC) Start: 01-07-2024 Non-patient / Non-visit Nohemi Phoenix MD Work Phone: [facility] Work Phone: Start: 01-07-2024 End: 01-07-2024 Admission to same day surgery center Nohemi Phoenix MD Work Phone: [facility] Work Phone: Start: 01-07-2024 End: 01-07-2024 ambulatory Nohemi Phoenix MD Work Phone: [facility] Work Phone: Start: 01-06-2024 End: 01-06-2024 ambulatory [facility] Work Phone: Start: 01-06-2024 End: 01-06-2024 Patient encounter procedure [facility] Work Phone: Start: 01-04-2024 End: 01-04-2024 Bamboo flowsheet Yonatan Rosado DPM FACFAS Work Phone: [facility] Start: 01-04-2024 End: 01-04-2024 Bamboo flowsheet Yonatan Rosado DPM FACFAS Work Phone: [facility] Start: 01-04-2024 End: 01-04-2024 Office outpatient visit 25 minutes Yonatan Rosado DPM FACFAS Work Phone: [facility] Comment on above: PAD (peripheral josiane ry disease) ([facility]/HCC) (Primary Dx); 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, left ([facility]/HCC); Gangrene ([facility]/HCC) Start: 01-04-2024 End: 01-04-2024 ambulatory YONATAN ROSADO Not Available Start: 12-30-2023 ambulatory [facility] Start: 12-28-2023 End: 12-28-2023 Bamboo flowsheet Yonatan Rosado DPM FACFAS Work Phone: [facility] Start: 12-28-2023 End: 12-28-2023 Bamboo flowsheet Yonatan Zaida Rosado DPM FACFAS Work Phone: [facility] Start: 12-28-2023 End: 12-28-2023 Office outpatient visit 25 minutes Yonatan Rosado DPM FACFAS Work Phone: [facility] Comment on above: Acute osteomyelitis of ankle and foot, left ([facility]) (Primary Dx); Type II diabetes mellitus with neurological manifestations ([facility]); 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, left ([facility]); PAD (peripheral artery disease) ([facility]) Start: 12-28-2023 End: 12-28-2023 ambulatory YONATAN ROSADO Not Available Start: 12-23-2023 End: 12-23-2023 Bamboo flowsheet Yonatan Rosado DPM FACFAS Work Phone: [facility] Start: 12-23-2023 End: 12-23-2023 Bamboo flowsheet Yonatan Zaida Rosado DPM FACFAS Work Phone: [facility] Start: 12-23-2023 End: 12-23-2023 Patient encounter procedure Yonatan Rosado DPM FACFAS Work Phone: [facility] Comment on above: Type 2 diabetes kailee itus with diabetic autonomic neuropathy, with long-term current use of insulin ([facility]) (Primary Dx); 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, left ([facility]/HCC) Start: 12-23-2023 End: 12-23-2023 ambulatory YONATAN ROSADO Not Available Start: 12-21-2023 End: 12-21-2023 Bamboo flowsheet Yonatan Rosado DPM FACFAS Work Phone: [facility] Start: 12-21-2023 End: 12-24-2023 Bamboo flowsheet Yontaan Rosado DPM FACFAS Work Phone: [facility] Start: 12-21-2023 End: 12-24-2023 Clinisync Result Encounter Yonatan Rosado DPM FACFAS Work Phone: [facility] External Department Unsolicited Start: 12-21-2023 End: 12-21-2023 Lab Drop off Yonaatn Rosado [facility] Start: 12-21-2023 End: 12-21-2023 Office outpatient new 30 minutes Yonatan Rosado DPM FACFAS Work Phone: [facility] Comment on above: Type 2 diabetes kailee itus with diabetic autonomic neuropathy, with long-term current use of insulin (CMS/HCC) (Primary Dx); Abscess of great toe of left foot; Cellulitis of left foot; 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, left (CMS/HCC); Contracture, ankle, left Start: 12-21-2023 End: 12-21-2023 ambulatory Yonatan Rosado Facility:[facility] Start: 12-16-2023 End: 12-16-2023 Office outpatient visit 25 minutes Zenia Summers REFUELER Work Phone: [facility] Comment on above: Callus (Primary Dx); Type 2 diabetes mellitus with diabetic autonomic neuropathy, with long-term current use of insulin (CMS/HCC); Toe infection; Diabetic polyneuropathy associated with type 2 diabetes mellitus (CMS/HCC); Thrombocytopenia, unspecified (CMS/HCC); Type 2 diabetes mellitus with hyperglycemia (CMS/HCC); Immunodeficiency due to conditions classified elsewhere (CMS/HCC) Start: 12-16-2023 End: 12-16-2023 ambulatory ZENIA SUMMERS Not Available Start: 12-15-2023 ambulatory [facility] Start: 12-11-2023 ambulatory TAMIKO [facility] Start: 12-03-2023 ambulatory TAMIKO [facility] Start: 11-25-2023 End: 11-25-2023 ambulatory ASHIA FLEMING [facility] Start: 11-25-2023 End: 11-25-2023 Clinisync Result Encounter Generic External Data Provider [facility] Unsolicited Start: 11-25-2023 End: 11-25-2023 Clinisync Result Encounter Generic External Data Provider [facility] External Department Unsolicited Start: 10-20-2023 ambulatory [facility] Start: 10-06-2023 ambulatory AMRIT [facility] Start: 10-06-2023 Encounter for preprocedural cardiovascular examination [facility] Start: 10-17-2021 End: 10-17-[address] JOSEFINA MARTINS Facility: Start: 10-18-2020 End: 10-19-2020 ambulatory NOHEMI PHOENIX Facility:[facility] Start: 04-07-2017 End: 04-07-2017 [facility] Start: 03-25-2017 End: 03-30-2017 Evaluation and management of inpatient [facility] Start: 03-17-2017 End: 03-17-2017 Ambulatory [facility] Procedures Date Procedure Procedure Detail Performing Clinician Start: 05-16-2024 Hemoglobin glycosyla darrin a1c Nohemi Phoenix MD Work Phone: Start: 01-07-2024 Lower limb angiography Nohemi Phoenix MD Work Phone: Start: 12-21-2023 [facility] C WOUND Yonatan nice DPM FACFAS Work Phone: Start: 12-21-2023 Radex foot complete minimum 3 views Yonatan Rosado DPM FACFAS Work Phone: Start: 12-16-2023 Hemoglobin glycosyla darrin a1c Zenia Summers NP Work Phone: Start: 11-25-2023 ALL BASIC METABOLIC PANEL Generic External Data Provider Start: 11-25-2023 ALL LIPID PROFILE (FASTING) Generic External Data Provider Plan of Treatment Date Care Activity Detail Author Start: 01-23-2025 Influenza vaccination Influenza Vacc ine (#1) [facility] Comment on above: Postponed from 10/24 (Other Medical Reasons) Start: 10-24-2024 Influenza vaccination Influenza Vacc ine (#1) [facility] Start: 08-16-2024 Hemoglobin A1c measurement Diabetes: Hemoglobin A1C [facility] Start: 07-23-2024 Urine screening for protein Diabetes: Urine Protein Screening [facility] Start: 05-23-2024 End: 05-23-2024 Patient encounter procedure 05/23/2024 1:10 PM EDT Office Visit [facility] [address] [place] [address] Yonatan Rosado, DPM FACFAS [address] [place] [address] [facility] Start: 05-06-2024 Glaucoma screening Diabetes: R etinopathy Screening [facility] Start: 04-01-2024 End: 04-01-2024 Patient encounter procedure 04/01/2024 10:20 AM EST Office Visit [facility] [address] [place] [address] Yonatan Rosado, DPM FACFAS [address] [place] [address] [facility] Start: 03-30-2024 End: 03-30-2024 Patient encounter procedure 03/30/2024 4:30 PM EST Office Visit [facility] [address] [facility] [address] [place] [address] Chevy Herrera, REFUELER [address] [place] [address] [place] [address] Arrived [facility] Comment on above: Arrived Start: 03-17-2024 Hemoglobin A1c measurement Diabetes: Hemoglobin A1C [facility] Start: 03-04-2024 End: 03-04-2024 Patient encounter procedure [facility] Comment on above: Arrived Start: 02-19-2024 End: 02-19-2024 Patient encounter procedure [facility] Comment on above: Arrived Start: 02-12-2024 End: 02-12-2024 Patient encounter procedure [facility] Comment on above: Arrived Start: 02-09-2024 End: 02-09-2024 Patient encounter procedure [facility] Comment on above: Arrived Start: 02-01-2024 End: 02-01-2024 Patient encounter procedure 02/01/2024 8:20 AM EST Office Visit [facility] [address] [place] [address] Yonatan Rosado, DPM [facility]AS [address] [facility] [place] [address] [facility] Start: 01-30-2024 Urine screening for protein Diabetes: Urine Protein Screening [facility] Start: 01-25-2024 End: 01-25-2024 Patient encounter procedure [facility] Comment on above: Arrived Start: 01-13-2024 End: 01-13-2024 Patient encounter procedure [facility] Comment on above: Arrived Start: 01-07-2024 [facility] Start: 12-28-2023 End: 12-27-2024 MR Foot - left WO contrast MR foot left wo IV contrast Imaging Routine Type II diabetes mellitus with neurological manifestations (CMS/HCC) Acute osteomyelitis of ankle and foot, left (CMS/HCC) Expected: 12/28/2023 (Approximate), Expires: 12/27/2024 [facility] Work Phone: Comment on above: Expected: 12/28/2023 (Approximate), Expires: 12/27/2024 Start: 12-28-2023 End: 02-27-2024 [email or web address] Extremity arteries - bilateral for physiologic artery study at rest and with exercise VASC US PVR/SEGMENTAL PRESSURES LOWER Imaging Routine Type II diabetes mellitus with neurological manifestations (CMS/HCC) PAD (peripheral artery disease) (CMS/HCC) Expected: 12/28/2023 (Approximate), Expires: 02/27/2024 [facility] Comment on above: Expected: 12/28/2023 (Approximate), Expires: 02/27/2024 Start: 12-28-2023 End: 12-28-2023 Patient encounter procedure [facility] Comment on above: Arrived Start: 12-23-2023 End: 12-23-2023 Patient encounter procedure [facility] Comment on above: Arrived Start: 12-21-2023 End: 12-20-2024 Bacteria identified in Wound by Culture Wound culture Microbiology Routine Abscess of great toe of left foot Expected: 12/21/2023 (Approximate), Expires: 12/20/2024 [facility] Work Phone: Comment on above: Expected: 12/21/2023 (Approximate), Expires: 12/20/2024 Start: 12-21-2023 End: 12-21-2023 Patient encounter procedure 12/21/2023 10:00 AM EDT Office Visit [facility] [address] [place] [address] Yonatan Rosado, DPM FACFAS [address] [place] [address] Type 2 diabetes mellitus with diabetic autonomic neuropathy, with long-term current use of insulin (CMS/[facility]); Callus; Toe infection [facility] Comment on above: Type 2 diabetes kailee itus with diabetic autonomic neuropathy, with long-term current use of insulin ([facility]/HCC); Callus; Toe infection Start: 10-29-2023 Hemoglobin A1c measurement Diabetes: Hemoglobin A1C [facility] Start: 10-25-2023 Influenza vaccination Influenza Vacc ine (#1) [facility] Patient Education Wound Care for Arterial Puncture (DC) Know your Meds [facility] Work Phone: Patient referral [facility] Work Phone: Immunizations Immunization Date Immunization Notes Care Provider Fa cility 10-16-2021 diphtheria, tetanus toxoids and pertussis vaccine Generic Provider [facility] 10-16-2021 tetanus toxoid, redu buffy diphtheria toxoid, and acellular pertussis vaccine, adsorbed Generic Provider [facility] 07-07-2018 tetanus toxoid, redu buffy diphtheria toxoid, and acellular pertussis vaccine, adsorbed Generic Provider [facility] Payers Date Payer Category Payer Self-pay 2021 [facility] BC[employer] [id number] 2021 Unknown BCBS BCBS [id number] 2021-Present [phone] [id number] [place] [address] [id number] 2021 Unknown [id number] 1965 Unknown [id number] 2.16.840.1.763161.3.579.2. 647 1963 Unknown [id number] 2.16.840.1.320620.3.579.2. 593 1963 Unknown [id number] 2.16.840.1.896746.3.579.2. 727 1963 Unknown [id number] 2.16.840.1.671951.3.579.2. 727 1963 Unknown [id number] 2.16.840.1.020292.3.579.2. 727 1963 Unknown [id number] 2.16.840.1.712715.3.579.2. 1259 1963 Unknown [id number] 2.16.840.1.113969.3.579.2. 1259 1963 Unknown [id number] 2.16.840.1.318898.3.579.2. 1258 1963 Unknown [id number] 2.16.840.1.151000.3.579.2. 1258 1963 Unknown [id number] 2.16.840.1.050500.3.579.2. 1258 1963 Unknown [id number] 2.16.840.1.085624.3.579.2. 1258 1963 Unknown [id number] 2.16.840.1.422631.3.579.2. 1258 1963 Unknown [id number] 2..840.1.711852.3.579.2. 1258 1963 Unknown [id number] 2..840.1.576253.3.579.2. 1258 1963 Unknown [id number] 2.840.1.652908.3.579.2. 1258 1963 Unknown [id number] 2..840.1.081811.3.579.2. 1258 1963 Unknown [id number] 2..840.1.540138.3.579.2. 1258 1963 Unknown [id number] 2.16.840.1.302712.3.579.2. 1258 1963 Unknown [id number] 2..840.1.639463.3.579.2. 1258 1963 Unknown [id number] 2.16.840.1.603218.3.579.2. 1258 1963 Unknown [id number] 2.16.840.1.288625.3.579.2. 1258 1963 Unknown [id number] 2.16.840.1.260003.3.579.2. 1258 1963 Unknown [id number] 2.16.840.1.520227.3.579.2. 1259 1959 Unknown [id number] Unknown [id number] Unknown [id number] 2.16.840.1.778588.3.579.2. 531 Unknown [id number] 2.16.840.1.775669.3.579.2. 531 Social History Date Type Detail Facility Start: 10-08-2022 Tobacco smoking stat [facility] Never smoked tobacco [facility] Start: 10-08-2022 Tobacco use and exposure User of smokeless tobacco [facility] History of tobacco use Chews Tobacco [facility] Start: 09-28-2023 End: 10-05-2024 Alcoholic beverage intake Ex-drinker (finding) [facility] Start: 09-28-2023 End: 10-05-2024 History of Social function [facility] Start: 09-28-2023 End: 10-05-2024 Tobacco use panel [facility] Start: 1965 Sex assigned at Not on file N [facility] Tobacco smoking status No Smokin g Status Entered [facility] Start: 01-06-2024 End: 01-07-2024 Tobacco smoking status NHIS Ex-smoker (finding) [facility] Start: 01-06-2024 Sex Male (finding) [facility] Start: 1965 Sex Assigned At Male F [facility] Start: 01-07-2024 Sex Patient sex un known (finding) [facility] Medical Equipment Procedure Code Equipment Code Equipment Origin al Text Equipment Identifier Dates [id number], [id number], [id number] Start: 03-31-2023 Insulin Syringe-Needle U-100 (Bd Veo Insulin Syringe Uf) 1/2 mL 31 gauge x 15/64 syringe Start: 01-06-2024 Insulin Syringe-Needle U-100 (Bd Veo Insulin Syringe Uf) 1/2 mL 31 gauge x 15/64 syringe Start: 01-06-2024 Functional Status Date Assessment Result Facility 10-05-2024 Patient Health [facility] ionnaire 2 item (PHQ-2) [Reported] [facility] Clinical Notes 11-25-2023 to 10-05-2024 Zenia Summers, REFUELER - 10/05/2024 9:00 AM Alondra Phoenix MD - 05/16/2024 2:40 PM Alondra Phoenix MD - 05/16/2024 2:00 PM Azar Herrera NP - 03/30/2024 4:30 PM ESTPatient Instructions Note Date & Type Note Facility 10-05-2024 History of Presen t illness Narrative Images from the original note were not included. Subjective Patient ID: Leida Hou is a 59 y.o. male who presents for No chief complaint on file.. Leida presents today for a possible torn muscle in his right side bonilla area. He was trimming trees 2 weeks ago. He has taken OTC tylenol and Motrin and used ice and heat. He states the pain is getting worse. When he has his shirt off the area looks swollen. Shoulder Injury The incident occurred in the yard. The right shoulder is affected. The incident occurred more than 1 week ago. Injury mechanism: trimming the trees. The quality of the pain is described as stabbing. The pain radiates to the chest. The pain is at a severity of 9/10. The pain is severe. Associated symptoms include muscle weakness. The symptoms are aggravated by movement. He has tried acetaminophen, NSAIDs, immobilization, ice, heat, non-weight bearing and rest for the symptoms. The treatment provided no relief. Over the past 2 weeks, how often have you been bothered by any of the following problems? Little interest or pleasure in doing things: Not at all Feeling down, depressed, or hopeless: Not at all Patient Health Questionnaire-2 Score: 0 Current Outpatient Medications on File Prior to Visit Medication Sig Dispense Refill albuterol HFA 90 mcg/act inhaler INHALE 2 PUFFS EVERY 4 (FOUR) HOURS IF NEEDED FOR WHEEZING OR SHORTNESS OF BREATH. 18 g 3 amLODIPine (Norvasc) 5 MG tablet Take 5 mg by mouth in the morning. aspirin (ASPIR) 81 MG EC tablet 1 (one) time each day at the same time. azithromycin (Zithromax) 250 MG tablet 2 tabs x 1 day, then 1 tab x 4 days 6 tablet 0 baclofen (Lioresal) 10 MG tablet TAKE 1 TABLET (10 MG) BY MOUTH 2 TIMES A DAY NEEDED FOR MUSCLE SPASMS NEEDED 180 tablet 1 carvedilol (Coreg) 25 MG tablet every 12 (twelve) hours. clopidogrel (Plavix) 75 MG tablet Take 75 mg by mouth Daily Continuous Glucose Sensor (FreeStyle Shazia 2 Sensor) misc Inject 1 each under the skin every 14 (fourteen) days 6 each 3 diazePAM (Valium) 5 MG tablet Take 1 tablet (5 mg) by mouth 1 (one) time each day at the same time PRN 30 tablet 0 empagliflozin (Jardiance) 25 MG Take 1 tablet (25 mg) by mouth in the morning. 30 tablet 11 ezetimibe (Zetia) 10 MG tablet Take 1 tablet (10 mg) by mouth Daily 100 tablet 3 gabapentin (Neurontin) 600 MG tablet Take 1 tablet (600 mg) by mouth in the morning and 1 tablet (600 mg) in the evening and 1 tablet (600 mg) before bedtime. 270 tablet 3 insulin aspart (NovoLOG FLEXPEN) 100 UNIT/ML pen INJECT 30 UNITS UNDER THE SKIN IN THE MORNING AND AT NOON AND IN THE EVENING. INJECT BEFORE MEALS. 100 mL 3 insulin degludec (Tresiba FlexTouch) 200 UNIT/ML injection INJECT 56 UNITS UNDER THE SKIN AT BEDTIME 9 mL 5 Insulin Syringe-Needle U-100 (BD Veo Insulin Syringe U/F) 31G X 15/64 0.5 ML misc Infuse 1 Device into a venous catheter in the morning and 1 Device at noon and 1 Device in the evening and 1 Device before bedtime. 400 each 3 meclizine (Antivert) 25 MG tablet 1 tablet as needed Orally every 4-6 hours as needed for 90 days 30 tablet 1 omeprazole (PriLOSEC) [address] capsule TAKE 1 CAPSULE BY MOUTH EVERY DAY AT THE SAME TIME EACH DAY 100 capsule 3 pen needle 30G x 8 mm misc Use as instructed 270 each 3 rosuvastatin (Crestor) 20 MG tablet 1 (one) time each day at the same time. sacubitril-valsartan (Entresto) 24-26 MG tablet Take 1 tablet by mouth in the morning and 1 tablet in the evening. No current facility-administered medications on file prior to visit. I have reviewed and reconciled the history and medication list with the patient today. Allergies Allergen Reactions Atorvastatin Other Reaction(s): other Codeine Nausea Only Social History Tobacco Use Smoking status: Never Smokeless tobacco: Current Types: Chew Vaping Use Vaping status: Never Used Substance Use Topics Alcohol use: Not Currently Drug use: Yes Types: Hydrocodone Family History Problem Relation Name Age of Onset Heart disease Mother Heart disease Father Past Medical History: Diagnosis Date Abnormal ankle brachial index (K[facility]) 2020 KUSH normal, TBI is abnormal CHF (congestive heart failure) ([facility]) Cholelithiasis 2017 Diabetes mellitus ([facility]) Diverticulitis 2017 partial obstruction H/O CT scan 10/17/[address] evidence for acute intracranial pathology H/O CT scan 10/17/2021 [facility] No other fractures some spinous process abnormality on C6 History of being hospitalized 2010 CAD and Complications History of echocardiogram 2016 EF25-30% lv is mildly enlarged History of echocardiogram 2020 moderately to severely reduced left ventricular systolic function with wall mothtion anormalities, EF30% normal right ventricular systolic function , moderate diastolic dysfunction, mild to moderate mitral regurgitaion Hypertension MO (myocardial infarction) ([facility]) 2010 Past Surgical History: Procedure Laterality Date ABCESS DRAINAGE 2010 on colon CARDIAC SURGERY 2010 06 bypass CARDIAC SURGERY 2020 right heart catheterization b/l angiography, severe 3 vessel cad with occlusion papent 4/5 bypass grafts(papent carrero to diagonal 2, patent svg to diagonal1, patent radial graft to om1, patent svg to the pda CATARACT EXTRACTION, BILATERAL [address] cortez diverticulosis scar tissue COLONOSCOPY 2016 dr solomon some polyps INSERT / REPLACE / REMOVE PACEMAKER 2011 2019single chamber ICD replacement due to battery depletion OTHER SURGICAL HISTORY 08/30/2019 Single chamber ICD replacement due to battery depletion Visit Vitals Smoking Status Never Review of Systems Constitutional: Negative. HENT: Negative. Eyes: Negative. Respiratory: Negative. Cardiovascular: Negative. Gastrointestinal: Negative. Genitourinary: Negative. Musculoskeletal: Negative. Skin: Negative. Neurological: Negative. Psychiatric/Behavioral: Negative. All other systems reviewed and are negative. Endocrine: Negative. Objective Physical Exam Vitals reviewed. Constitutional: Appearance: Normal appearance. HENT: Head: Normocephalic. Nose: Nose normal. Mouth/Throat: Mouth: Mucous membranes are moist. Pharynx: Oropharynx is clear. Cardiovascular: Rate and Rhythm: Normal rate. Pulmonary: Effort: Pulmonary effort is normal. Chest: Chest wall: Swelling and tenderness present. Musculoskeletal: Thoracic back: Spasms and tenderness present. Decreased range of motion. Skin: General: Skin is warm and dry. Neurological: General: No focal deficit present. Mental Status: He is alert and oriented to person, place, and time. Psychiatric: Mood and Affect: Mood normal. Behavior: Behavior normal. Thought Content: Thought content normal. Judgment: Judgment normal. Assessment/Plan Diagnoses and all orders for this visit: Muscle spasm of back - tiZANidine (Zanaflex) 4 MG tablet; Take 1 tablet (4 mg) by mouth every 6 (six) hours if needed for muscle spasms for up to 10 days Take medication as ordered. Do not take while working or driving. Do not take with the baclofen. Intercostal pain - predniSONE (Deltasone) 10 MG tablet; Take 4 tablets (40 mg) by mouth Daily for 4 days, THEN 3 tablets (30 mg) Daily for 4 days, THEN 2 tablets (20 mg) Daily for 4 days, THEN 1 tablet (10 mg) Daily for 4 days. Start the above medications as directed. Advised of potential side effects of the steroid. Patient is to take the steroid with food. Do not take any NSAIDs while on Prednisone, Tylenol ok prn. Can take the Tizanidine prn before bed, cautioned it may cause drowsiness. Encouraged gentle heat to area. Advised patient that if symptoms do not improve imaging may be required for further evaluation, PT referral may also be appropriate. If no improvement in 7 days, come back to office for further treatment. No follow-ups on file. documented in this encounter [facility] 05-16-2024 History of Presen t illness Narrative Associated Problem(s): Type 2 diabetes mellitus with diabetic autonomic (poly)neuropathy ([facility]) Patient was only doing 3 units and [...] and importance of healthy diet and exercise. Images from the original note were not included. Subjective Patient ID: Leida Hou is a 58 y.o. male who presents for No chief complaint on file.. Leida presents today for his 4 month F/U for diabetes. A1c was 10.0 in Nov 2023. Current Outpatient Medications on File Prior to Visit Medication Sig Dispense Refill albuterol HFA 90 mcg/act inhaler INHALE 2 PUFFS EVERY 4 (FOUR) HOURS IF NEEDED FOR WHEEZING OR SHORTNESS OF BREATH. 18 g 3 amLODIPine (Norvasc) 5 MG tablet Take 5 mg by mouth in the morning. aspirin (ASPIR) 81 MG EC tablet 1 (one) time each day at the same time. azithromycin (Zithromax) 250 MG tablet 2 tabs x 1 day, then 1 tab x 4 days 6 tablet 0 baclofen (Lioresal) 10 MG tablet TAKE 1 TABLET (10 MG) BY MOUTH 2 TIMES A DAY NEEDED FOR MUSCLE SPASMS NEEDED 180 tablet 1 carvedilol (Coreg) 25 MG tablet every 12 (twelve) hours. clopidogrel (Plavix) 75 MG tablet Take 75 mg by mouth Daily Continuous Glucose Sensor (FreeStyle Shazia 2 Sensor) misc Inject 1 each under the skin every 14 (fourteen) days 6 each 3 ezetimibe (Zetia) 10 MG tablet Take 1 tablet (10 mg) by mouth Daily 100 tablet 3 gabapentin (Neurontin) 600 MG tablet Take 1 tablet (600 mg) by mouth in the morning and 1 tablet (600 mg) in the evening and 1 tablet (600 mg) before bedtime. 270 tablet 3 insulin degludec (Tresiba FlexTouch) 200 UNIT/ML injection Inject 56 Units under the skin at bedtime 9 mL 5 Insulin Syringe-Needle U-100 (BD Veo Insulin Syringe U/F) 31G X 15/64 0.5 ML misc Infuse 1 Device into a venous catheter in the morning and 1 Device at noon and 1 Device in the evening and 1 Device before bedtime. 400 each 3 meclizine (Antivert) 25 MG tablet 1 tablet as needed Orally every 4-6 hours as needed for 90 days 30 tablet 1 omeprazole (PriLOSEC) [address] capsule TAKE 1 CAPSULE BY MOUTH EVERY DAY AT THE SAME TIME EACH DAY 100 capsule 3 rosuvastatin (Crestor) 20 MG tablet 1 (one) time each day at the same time. sacubitril-valsartan (Entresto) 24-26 MG tablet Take 1 tablet by mouth in the morning and 1 tablet in the evening. [DISCONTINUED] diazePAM (Valium) 5 MG tablet Take 1 tablet (5 mg) by mouth 1 (one) time each day at the same time PRN 30 tablet 0 [DISCONTINUED] Jardiance 25 MG TAKE 1 TABLET BY MOUTH EVERY DAY IN THE MORNING 30 tablet 11 [DISCONTINUED] NovoLOG FLEXPEN 100 UNIT/ML pen INJECT 30 UNITS UNDER THE SKIN IN THE MORNING AND AT NOON AND IN THE EVENING BEFORE MEALS. No current facility-administered medications on file prior to visit. I have reviewed and reconciled the history and medication list with the patient today. Allergies Allergen Reactions Atorvastatin Other Reaction(s): other Codeine Nausea Only Social History Tobacco Use Smoking status: Never Smokeless tobacco: Current Types: Chew Vaping Use Vaping status: Never Used Substance Use Topics Alcohol use: Not Currently Drug use: Yes Types: Hydrocodone Family History Problem Relation Name Age of Onset Heart disease Mother Heart disease Father Past Medical History: Diagnosis Date Abnormal ankle brachial index ([facility]) 2020 KUSH normal, TBI is abnormal CHF (congestive heart failure) ([facility]) Cholelithiasis 2017 Diabetes mellitus (CMS/HCC) Diverticulitis 2017 partial obstruction H/O CT scan 10/17/[address] evidence for acute intracranial pathology H/O CT scan 10/17/2021 [facility] No other fractures some spinous process abnormality on C6 History of being hospitalized 2010 CAD and Complications History of echocardiogram 2016 EF25-30% lv is mildly enlarged History of echocardiogram 2020 moderately to severely reduced left ventricular systolic function with wall mothtion anormalities, EF30% normal right ventricular systolic function , moderate diastolic dysfunction, mild to moderate mitral regurgitaion Hypertension ([facility]/HCC) MO (myocardial infarction) (CMS/HCC) 2010 Past Surgical History: Procedure Laterality Date ABCESS DRAINAGE 2011 on colon CARDIAC SURGERY 2010 5 bypass CARDIAC SURGERY 2020 right heart catheterization b/l angiography, severe 3 vessel cad with occlusion papent 4/5 bypass grafts(papent carrero to diagonal 2, patent svg to diagonal1, patent radial graft to om1, patent svg to the pda CATARACT EXTRACTION, BILATERAL [address] cortez diverticulosis scar tissue COLONOSCOPY 2016 dr solomon some polyps INSERT / REPLACE / REMOVE PACEMAKER 2011 2019single chamber ICD replacement due to battery depletion OTHER SURGICAL HISTORY 08/30/2019 Single chamber ICD replacement due to battery depletion Visit Vitals BP (!) 188/84 Pulse 89 Resp 17 Ht 6' Wt 199 lb SpO2 98% BMI 26.99 kg/m Smoking Status Never BSA 2.14 m Review of Systems Constitutional: Negative for chills. HENT: Negative for congestion, postnasal drip and rhinorrhea. Eyes: Negative. Respiratory: Negative for cough and shortness of breath. Cardiovascular: Negative. Negative for chest pain. Gastrointestinal: Negative. Genitourinary: Negative. Musculoskeletal: Negative. Skin: Negative. Neurological: Negative. Negative for dizziness, seizures and facial asymmetry. Psychiatric/Behavioral: Negative. Endocrine: Negative. Allergic/Immunologic: Negative. Objective Physical Exam Vitals reviewed. Constitutional: Appearance: Normal appearance. HENT: Head: Normocephalic. Neck: Vascular: No carotid bruit. Cardiovascular: Rate and Rhythm: Normal rate and regular rhythm. Pulses: Normal pulses. Pulmonary: Effort: Pulmonary effort is normal. Breath sounds: Normal breath sounds. Musculoskeletal: Legs: Comments: Left great toe amputation Neurological: General: No focal deficit present. Mental Status: He is alert and oriented to person, place, and time. Psychiatric: Mood and Affect: Mood normal. Assessment/Plan Problem List Items Addressed This Visit Insomnia Relevant Medications diazePAM (Valium) 5 MG tablet Type 2 diabetes mellitus with diabetic autonomic (poly)neuropathy (CMS/HCC) - Primary Patient was only doing 3 units and [...] and importance of healthy diet and exercise. Relevant Medications pen needle 30G x 8 mm misc empagliflozin (Jardiance) 25 MG Other Relevant Orders POCT glycosylated hemoglobin (Hb A1C) docked device Other Visit Diagnoses Type 2 diabetes mellitus with foot ulcer (CODE) ([facility]) Relevant Medications insulin aspart (NovoLOG FLEXPEN) 100 UNIT/ML pen Other Relevant Orders POCT glycosylated hemoglobin (Hb A1C) docked device Follow up in about 4 weeks (around 06/13/2024) for Recheck. documented in this encounter [facility] 03-30-2024 History of Presen t illness Narrative Images from the original note were not included. Subjective Patient ID: Leida Hou is a 58 y.o. male who presents for cough and chest congestion. Leida presents today for a cough with chest congestion for the last 6 days. He had a headache, fever, chills and sinus issues. Current Outpatient Medications on File Prior to Visit Medication Sig Dispense Refill amLODIPine (Norvasc) 5 MG tablet Take 5 mg by mouth in the morning. aspirin (ASPIR) 81 MG EC tablet 1 (one) time each day at the same time. baclofen (Lioresal) 10 MG tablet TAKE 1 TABLET (10 MG) BY MOUTH 2 TIMES A DAY NEEDED FOR MUSCLE SPASMS NEEDED 180 tablet 1 carvedilol (Coreg) 25 MG tablet every 12 (twelve) hours. Continuous Glucose Sensor (FreeStyle Shazia 2 Sensor) misc Inject 1 each under the skin every 14 (fourteen) days 6 each 3 diazePAM (Valium) 5 MG tablet Take 1 tablet (5 mg) by mouth 1 (one) time each day at the same time PRN 30 tablet 0 ezetimibe (Zetia) 10 MG tablet Take 1 tablet (10 mg) by mouth Daily 100 tablet 3 gabapentin (Neurontin) 600 MG tablet Take 1 tablet (600 mg) by mouth in the morning and 1 tablet (600 mg) in the evening and 1 tablet (600 mg) before bedtime. 270 tablet 3 Insulin Aspart (NovoLOG) 100 UNIT/ML solution Inject 30 Units under the skin in the morning and 30 Units at noon and 30 Units in the evening. Inject before meals. 30 mL 3 insulin degludec (Tresiba FlexTouch) 200 UNIT/ML injection Inject 56 Units under the skin at bedtime 9 mL 5 Insulin Syringe-Needle U-100 (BD Veo Insulin Syringe U/F) 31G X 15/64 0.5 ML misc Infuse 1 Device into a venous catheter in the morning and 1 Device at noon and 1 Device in the evening and 1 Device before bedtime. 400 each 3 Jardiance 25 MG TAKE 1 TABLET BY MOUTH EVERY DAY IN THE MORNING 30 tablet 11 meclizine (Antivert) 25 MG tablet 1 tablet as needed Orally every 4-6 hours as needed for 90 days 30 tablet 1 omeprazole (PriLOSEC) [address] capsule TAKE 1 CAPSULE BY MOUTH EVERY DAY AT THE SAME TIME EACH DAY 100 capsule 3 rosuvastatin (Crestor) 20 MG tablet 1 (one) time each day at the same time. sacubitril-valsartan (Entresto) 24-26 MG tablet Take 1 tablet by mouth in the morning and 1 tablet in the evening. No current facility-administered medications on file prior to visit. I have reviewed and reconciled the history and medication list with the patient today. Allergies Allergen Reactions Atorvastatin Other Reaction(s): other Codeine Nausea Only Social History Tobacco Use Smoking status: Never Smokeless tobacco: Current Types: Chew Substance Use Topics Alcohol use: Not Currently Drug use: Yes Types: Hydrocodone Family History Problem Relation Name Age of Onset Heart disease Mother Heart disease Father Past Medical History: Diagnosis Date Abnormal ankle brachial index ([facility]) 2020 KUSH normal, TBI is abnormal CHF (congestive heart failure) ([facility]) Cholelithiasis 2017 Diabetes mellitus ([facility]) Diverticulitis 2017 partial obstruction H/O CT scan 10/17/[address] evidence for acute intracranial pathology H/O CT scan 10/17/2021 CSpine No other fractures some spinous process abnormality on C6 History of being hospitalized 2010 CAD and Complications History of echocardiogram 2016 EF25-30% lv is mildly enlarged History of echocardiogram 2020 moderately to severely reduced left ventricular systolic function with wall mothtion anormalities, EF30% normal right ventricular systolic function , moderate diastolic dysfunction, mild to moderate mitral regurgitaion Hypertension (CMS/HCC) MO (myocardial infarction) (CMS/HCC) 2010 Past Surgical History: Procedure Laterality Date ABCESS DRAINAGE 2010 on colon CARDIAC SURGERY 2010 06 bypass CARDIAC SURGERY 2020 right heart catheterization b/l angiography, severe 3 vessel cad with occlusion papent 4/5 bypass grafts(papent carrero to diagonal 2, patent svg to diagonal1, patent radial graft to om1, patent svg to the pda CATARACT EXTRACTION, BILATERAL [address] cortez diverticulosis scar tissue COLONOSCOPY 2016 dr solomon some polyps INSERT / REPLACE / REMOVE PACEMAKER 2011 2019single chamber ICD replacement due to battery depletion OTHER SURGICAL HISTORY 08/30/2019 Single chamber ICD replacement due to battery depletion Visit Vitals Smoking Status Never Review of Systems Constitutional: Positive for chills. HENT: Positive for congestion, postnasal drip and rhinorrhea. Eyes: Negative. Respiratory: Positive for cough and shortness of breath. Cardiovascular: Negative. Gastrointestinal: Negative. Genitourinary: Negative. Musculoskeletal: Negative. Skin: Negative. Neurological: Negative. Psychiatric/Behavioral: Negative. Endocrine: Negative. Allergic/Immunologic: Negative. Objective Physical Exam Vitals reviewed. Constitutional: Appearance: He is ill-appearing. HENT: Head: Normocephalic and atraumatic. Right Ear: Ear canal and external ear normal. Left Ear: Ear canal and external ear normal. Ears: Comments: TM's dull bilaterally Nose: Congestion and rhinorrhea present. Mouth/Throat: Mouth: Mucous membranes are moist. Pharynx: Posterior oropharyngeal erythema present. No oropharyngeal exudate. Eyes: Conjunctiva/sclera: Conjunctivae normal. Cardiovascular: Rate and Rhythm: Normal rate and regular rhythm. Heart sounds: Normal heart sounds. Pulmonary: Breath sounds: Wheezing present. Abdominal: Palpations: Abdomen is soft. Musculoskeletal: General: Normal range of motion. Cervical back: Normal range of motion and neck supple. Skin: General: Skin is warm and dry. Neurological: General: No focal deficit present. Mental Status: He is alert and oriented to person, place, and time. Psychiatric: Mood and Affect: Mood normal. Behavior: Behavior normal. Thought Content: Thought content normal. Judgment: Judgment normal. Assessment/Plan 1. Acute bronchitis, unspecified organism (Primary) Discussed diagnosis, use of zithromax, alubterol and hycodan cough syrup as well as their most common side effects. Advised to increase his fluids, rest, continue otc mucinex as ordered, may continue otc tylenol as directed, continue all medication as ordered and follow up for continued or worsening symptoms. - azithromycin (Zithromax) 250 MG tablet; 2 tabs x 1 day, then 1 tab x 4 days Dispense: 6 tablet; Refill: 0 - albuterol HFA 90 mcg/act inhaler; Inhale 2 puffs every 4 (four) hours if needed for wheezing or shortness of breath Dispense: 18 g; Refill: 0 2. Acute cough - HYDROcodone Bit-Homatrop MBr (Hycodan) 5-1.5 MG/5ML solution; Take 5 mL by mouth every 6 (six) hours if needed (cough) for up to 10 days Dispense: 120 mL; Refill: 0 3. Hypertensive heart disease with heart failure (CMS/HCC) Stable, sacubitril-valsartan (Entresto) 24-26 MG tablet continues. 4. Gangrene, not elsewhere classified (CMS/HCC) Sp amputation, stable. 5. Type 2 diabetes mellitus with foot ulcer (CODE) (CMS/HCC) Stable. insulin Aspart (NovoLOG), Jardiance 25 MG, Continuous Glucose Sensor (FreeStyle Shazia 2 Sensor[place] [facility] [place]. 6. Non-pressure chronic ulcer 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 (CMS/HCC) 7. Ventricular tachycardia, unspecified (CMS/HCC) aspirin (ASPIR) 81 MG EC tablet continues. 8. Unspecified systolic (congestive) heart failure (CMS/HCC) 9. Heart failure, unspecified (CMS/HCC) 10. Chronic systolic (congestive) heart failure (CMS/HCC) No follow-ups on file. documented in this encounter [facility] 03-30-2024 Instructions Chevy Herrera NP - 03/30/2024 4:30 PM EST Zithromax added Albuterol added Hycodan syrup added documented in this encounter [facility] 03-04-2024 History of Presen t illness Narrative Patient: Leida Hou : 1965 PCP: Nohemi Phoenix MD SUBJECTIVE This is a 58 y.o. male that presents today The patient is here status post amputation great toe left procedure. Postop week 6 They deny fevers, chills, nausea, vomiting, calf pain and shortness of breath. Pain level is being managed with ice elevation and pain medication. They have been relatively compliant with he postoperative care. Patient is doing well he had revascularization procedure pain has improved significantly. Patient is here for follow up his orthotics with toe filler doing very well no complaints Allergies: Allergies Allergen Reactions Atorvastatin Other Reaction(s): other Codeine Nausea Only Past Medical History: Past Medical History: Diagnosis Date Abnormal ankle brachial index (KUSH) 2020 KUSH normal, TBI is abnormal CHF (congestive heart failure) ([facility]) Cholelithiasis 2017 Diabetes mellitus ([facility]) Diverticulitis 2017 partial obstruction H/O CT scan 10/17/[address] evidence for acute intracranial pathology H/O CT scan 10/17/2021 CSpine No other fractures some spinous process abnormality on C6 History of being hospitalized 2010 CAD and Complications History of echocardiogram 2016 EF25-30% lv is mildly enlarged History of echocardiogram 2020 moderately to severely reduced left ventricular systolic function with wall mothtion anormalities, EF30% normal right ventricular systolic function , moderate diastolic dysfunction, mild to moderate mitral regurgitaion Hypertension ([facility]) MO (myocardial infarction) ([facility]) 2010 Medications: Current Outpatient Medications: amLODIPine (Norvasc) 5 MG tablet, Take 5 mg by mouth in the morning., Disp: , Rfl: aspirin (ASPIR) 81 MG EC tablet, 1 (one) time each day at the same time., Disp: , Rfl: baclofen (Lioresal) 10 MG tablet, TAKE 1 TABLET (10 MG) BY MOUTH 2 TIMES A DAY NEEDED FOR MUSCLE SPASMS NEEDED, Disp: 180 tablet, Rfl: 1 carvedilol (Coreg) 25 MG tablet, every 12 (twelve) hours., Disp: , Rfl: Continuous Glucose Sensor (FreeStyle Shazia 2 Sensor) mis, Inject 1 each under the skin every 14 (fourteen) days, Disp: 6 each, Rfl: 3 diazePAM (Valium) 5 MG tablet, Take 1 tablet (5 mg) by mouth 1 (one) time each day at the same time PRN, Disp: 30 tablet, Rfl: 0 ezetimibe (Zetia) 10 MG tablet, Take 1 tablet (10 mg) by mouth Daily, Disp: 100 tablet, Rfl: 3 gabapentin (Neurontin) 600 MG tablet, Take 1 tablet (600 mg) by mouth in the morning and 1 tablet (600 mg) in the evening and 1 tablet (600 mg) before bedtime., Disp: 270 tablet, Rfl: 3 Insulin Aspart (NovoLOG) 100 UNIT/ML solution, Inject 30 Units under the skin in the morning and 30 Units at noon and 30 Units in the evening. Inject before meals., Disp: 30 mL, Rfl: 3 insulin degludec (Tresiba FlexTouch) 200 UNIT/ML injection, Inject 56 Units under the skin at bedtime, Disp: 9 mL, Rfl: 5 Insulin Syringe-Needle U-100 (BD Veo Insulin Syringe U/F) 31G X 15/64 0.5 ML misc, Infuse 1 Device into a venous catheter in the morning and 1 Device at noon and 1 Device in the evening and 1 Device before bedtime., Disp: 400 each, Rfl: 3 Jardiance 25 MG, TAKE 1 TABLET BY MOUTH EVERY DAY IN THE MORNING, Disp: 30 tablet, Rfl: 11 meclizine (Antivert) 25 MG tablet, 1 tablet as needed Orally every 4-6 hours as needed for 90 days, Disp: 30 tablet, Rfl: 1 omeprazole (PriLOSEC) [address] capsule, TAKE 1 CAPSULE BY MOUTH EVERY DAY AT THE SAME TIME EACH DAY, Disp: 100 capsule, Rfl: 3 rosuvastatin (Crestor) 20 MG tablet, 1 (one) time each day at the same time., Disp: , Rfl: sacubitril-valsartan (Entresto) 24-26 MG tablet, Take 1 tablet by mouth in the morning and 1 tablet in the evening., Disp: , Rfl: Review of systems: Constitutional: Denies fever, chills, nausea, vomiting GI: Denies abdominal pain, cramping, loose stool, gastric ulcers Musculoskeletal: Denies low back pain, knee pain, systemic arthritis Neurologic: Denies burning, tingling, transient paralysis OBJECTIVE Physical Examination: DERM: Positive hair growth to b/l feet with good skin turgor noted. Negative openings in skin VASC: DP /PT were palpable bilateral. Capillary refill time < 3 seconds Digits 1-5 bilateral NEURO: [employer] 5.07 monofilament was intact B/L. Vibratory sensation was intact B/L Musculoskeletal: Muscle strength was +5 over 5 all intrinsic and extrinsic muscles tested. Negative Homans test noted Surgical site evaluation: The incision site is healing well without signs infection. Minimal swelling noted. Consistent with the patient's level of surgery consistent with time frame postoperatively. Incision sites well coapted no signs of infection ASSESSMENT 1. Type II diabetes mellitus with neurological manifestations (CMS/HCC) 2. Amputation of left great toe (CMS/HCC) PLAN Patient is doing very well he is having some slight difficulty wearing toe filler with his new shoes great appears his shoes are slightly small in nature. Recommending he size 1/2 size in his shoe. I did fit them into his regular shoes this point follow up with me in 1 month for reexamination he is doing very well SUSANA Davis documented in this encounter [facility] 02-19-2024 History of Presen t illness Narrative Patient had a small dehiscence of his wound underwent a delayed primary closure performed by Dr. Gomez last week. Incision sites well coapted no signs of infection continue with dressing changes as ordered in his surgical shoe follow up 2 weeks denies fever chills nausea vomiting. Today the patient is here to be dispensed his orthotic devices the left has a toe filler built into the rigid orthotic device for support. [id number] The patient was dispensed 1 pair of custom molded orthotic devices. They were educated on the use of the devices in shoe gear. There also educated on the break-in period with the orthotic devices as well. Patient was dispensed a handout describing the device with detailed instructions. Left orthotic has a toe filler for his amputation of the great toe left documented in this encounter [facility] 02-12-2024 History of Presen t illness Narrative Patient had a small dehiscence of his wound underwent a delayed primary closure performed by Dr. Gomez last week. Incision sites well coapted no signs of infection continue with dressing changes as ordered in his surgical shoe follow up 2 weeks denies fever chills nausea vomiting documented in this encounter [facility] 02-09-2024 History of Presen t illness Narrative Patient: Leida Hou : 1965 PCP: Nohemi Phoenix MD SUBJECTIVE This is a 58 y.o. male that presents today The patient is here status post amputation great toe left procedure. Postop week 4 They deny fevers, chills, nausea, vomiting, calf pain and shortness of breath. Pain level is being managed with ice elevation and pain medication. They have been relatively compliant with he postoperative care. Patient is doing well he had revascularization procedure pain has improved significantly. Dr. Pearl removed his sutures this morning and 1 area is is bleeding and split open Allergies: Allergies Allergen Reactions Atorvastatin Other Reaction(s): other Codeine Nausea Only Past Medical History: Past Medical History: Diagnosis Date Abnormal ankle brachial index (KUSH) 2020 KUSH normal, TBI is abnormal CHF (congestive heart failure) ([facility]) Cholelithiasis 2017 Diabetes mellitus ([facility]) Diverticulitis 2017 partial obstruction H/O CT scan 10/17/[address] evidence for acute intracranial pathology H/O CT scan 10/17/2021 CSpine No other fractures some spinous process abnormality on C6 History of being hospitalized 2010 CAD and Complications History of echocardiogram 2016 EF25-30% lv is mildly enlarged History of echocardiogram 2020 moderately to severely reduced left ventricular systolic function with wall mothtion anormalities, EF30% normal right ventricular systolic function , moderate diastolic dysfunction, mild to moderate mitral regurgitaion Hypertension ([facility]) MO (myocardial infarction) ([facility]) 2010 Medications: Current Outpatient Medications: amLODIPine (Norvasc) 5 MG tablet, Take 5 mg by mouth in the morning., Disp: , Rfl: aspirin (ASPIR) 81 MG EC tablet, 1 (one) time each day at the same time., Disp: , Rfl: carvedilol (Coreg) 25 MG tablet, every 12 (twelve) hours., Disp: , Rfl: Continuous Glucose Sensor (FreeStyle Shazia 2 Sensor) misc, Inject 1 each under the skin every 14 (fourteen) days, Disp: 6 each, Rfl: 3 diazePAM (Valium) 5 MG tablet, Take 1 tablet (5 mg) by mouth 1 (one) time each day at the same time PRN, Disp: 30 tablet, Rfl: 0 ezetimibe (Zetia) 10 MG tablet, Take 1 tablet (10 mg) by mouth Daily, Disp: 100 tablet, Rfl: 3 gabapentin (Neurontin) 600 MG tablet, Take 1 tablet (600 mg) by mouth in the morning and 1 tablet (600 mg) in the evening and 1 tablet (600 mg) before bedtime., Disp: 270 tablet, Rfl: 3 Insulin Aspart (NovoLOG) 100 UNIT/ML solution, Inject 30 Units under the skin in the morning and 30 Units at noon and 30 Units in the evening. Inject before meals., Disp: 30 mL, Rfl: 3 insulin degludec (Tresiba FlexTouch) 200 UNIT/ML injection, Inject 56 Units under the skin at bedtime, Disp: 9 mL, Rfl: 5 Insulin Syringe-Needle U-100 (BD Veo Insulin Syringe U/F) 31G X 15/64 0.5 ML misc, Infuse 1 Device into a venous catheter in the morning and 1 Device at noon and 1 Device in the evening and 1 Device before bedtime., Disp: 400 each, Rfl: 3 Jardiance 25 MG, TAKE 1 TABLET BY MOUTH EVERY DAY IN THE MORNING, Disp: 30 tablet, Rfl: 11 meclizine (Antivert) 25 MG tablet, 1 tablet as needed Orally every 4-6 hours as needed for 90 days, Disp: 30 tablet, Rfl: 1 omeprazole (PriLOSEC) [address] capsule, Take 1 capsule (20 mg) by mouth 1 (one) time each day at the same time, Disp: 100 capsule, Rfl: 3 rosuvastatin (Crestor) 20 MG tablet, 1 (one) time each day at the same time., Disp: , Rfl: sacubitril-valsartan (Entresto) 24-26 MG tablet, Take 1 tablet by mouth in the morning and 1 tablet in the evening., Disp: , Rfl: Tuberculin Syringe ([employer] Tuberculin Safety Syr) 25G X 5/8 1 ML misc, USE DIRECTED, Disp: 100 each, Rfl: 4 Review of systems: Constitutional: Denies fever, chills, nausea, vomiting GI: Denies abdominal pain, cramping, loose stool, gastric ulcers Musculoskeletal: Denies low back pain, knee pain, systemic arthritis Neurologic: Denies burning, tingling, transient paralysis OBJECTIVE Physical Examination: DERM: Positive hair growth to b/l feet with good skin turgor noted. Negative openings in skin VASC: DP /PT were palpable bilateral. Capillary refill time < 3 seconds Digits 1-5 bilateral NEURO: [employer] [facility] 5.07 monofilament was intact B/L. Vibratory sensation was intact B/L Musculoskeletal: Muscle strength was +5 over 5 all intrinsic and extrinsic muscles tested. Negative Homans test noted Surgical site evaluation: The incision site is healing well without signs infection. Minimal swelling noted. Consistent with the patient's level of surgery consistent with time frame postoperatively. Sutures remain intact without signs of dehiscence. Flaps appear to be viable incision is well coapted no pain sutures were removed and the very distal plantar aspect was actively bleeding ASSESSMENT 1. PAD (peripheral artery disease) (CMS/HCC) 2. Gangrene (CMS/HCC) 3. Type II diabetes mellitus with neurological manifestations (CMS/HCC) PLAN Prepped the area with iodine patient is fairly neuropathic did not need any lidocaine DPC with 4-0 Prolene to the area of the amputation site left. Applied Betadine-soaked gauze paper tape and Tubigrip patient will remain in the postop shoe informed change the dressing daily. Patient is going to follow up with Dr. Gustafson this Thursday to see how the incision site is healing. Closed with 4-0 Prolene today after adequate prepping and draping. SUSANA Navas documented in this encounter [facility] 02-09-2024 History of Presen t illness Narrative Images from the original note were not included. Patient: Leida Hou : 1965 PCP: Nohemi Phoenix MD SUBJECTIVE This is a 58 y.o. male that presents today The patient is here status post amputation great toe left procedure. Postop week 3. They deny fevers, chills, nausea, vomiting, calf pain and shortness of breath. Pain level is being managed with ice elevation and pain medication. They have been relatively compliant with her postoperative care. Patient is doing well he had revascularization procedure pain has improved significantly. Allergies: Allergies Allergen Reactions Atorvastatin Other Reaction(s): other Codeine Nausea Only Past Medical History: Past Medical History: Diagnosis Date Abnormal ankle brachial index (KUSH) 2020 KUSH normal, TBI is abnormal CHF (congestive heart failure) ([facility]) Cholelithiasis 2017 Diabetes mellitus ([facility]) Diverticulitis 2017 partial obstruction H/O CT scan 10/17/[address] evidence for acute intracranial pathology H/O CT scan 10/17/2021 CSpine No other fractures some spinous process abnormality on C6 History of being hospitalized 2010 CAD and Complications History of echocardiogram 2016 EF25-30% lv is mildly enlarged History of echocardiogram 2020 moderately to severely reduced left ventricular systolic function with wall mothtion anormalities, EF30% normal right ventricular systolic function , moderate diastolic dysfunction, mild to moderate mitral regurgitaion Hypertension ([facility]) MO (myocardial infarction) ([facility]) 2010 Medications: Current Outpatient Medications: amLODIPine (Norvasc) 5 MG tablet, Take 5 mg by mouth in the morning., Disp: , Rfl: aspirin (ASPIR) 81 MG EC tablet, 1 (one) time each day at the same time., Disp: , Rfl: carvedilol (Coreg) 25 MG tablet, every 12 (twelve) hours., Disp: , Rfl: Continuous Glucose Sensor (FreeStyle Shazia 2 Sensor) misc, Inject 1 each under the skin every 14 (fourteen) days, Disp: 6 each, Rfl: 3 diazePAM (Valium) 5 MG tablet, Take 1 tablet (5 mg) by mouth 1 (one) time each day at the same time PRN, Disp: 30 tablet, Rfl: 0 ezetimibe (Zetia) 10 MG tablet, Take 1 tablet (10 mg) by mouth Daily, Disp: 100 tablet, Rfl: 3 gabapentin (Neurontin) 600 MG tablet, Take 1 tablet (600 mg) by mouth in the morning and 1 tablet (600 mg) in the evening and 1 tablet (600 mg) before bedtime., Disp: 270 tablet, Rfl: 3 Insulin Aspart (NovoLOG) 100 UNIT/ML solution, Inject 30 Units under the skin in the morning and 30 Units at noon and 30 Units in the evening. Inject before meals., Disp: 30 mL, Rfl: 3 insulin degludec (Tresiba FlexTouch) 200 UNIT/ML injection, Inject 56 Units under the skin at bedtime, Disp: 9 mL, Rfl: 5 Insulin Syringe-Needle U-100 (BD Veo Insulin Syringe U/F) 31G X 15/64 0.5 ML misc, Infuse 1 Device into a venous catheter in the morning and 1 Device at noon and 1 Device in the evening and 1 Device before bedtime., Disp: 400 each, Rfl: 3 Jardiance 25 MG, TAKE 1 TABLET BY MOUTH EVERY DAY IN THE MORNING, Disp: 30 tablet, Rfl: 11 meclizine (Antivert) 25 MG tablet, 1 tablet as needed Orally every 4-6 hours as needed for 90 days, Disp: 30 tablet, Rfl: 1 omeprazole (PriLOSEC) [address] capsule, Take 1 capsule (20 mg) by mouth 1 (one) time each day at the same time, Disp: 100 capsule, Rfl: 3 rosuvastatin (Crestor) 20 MG tablet, 1 (one) time each day at the same time., Disp: , Rfl: sacubitril-valsartan (Entresto) 24-26 MG tablet, Take 1 tablet by mouth in the morning and 1 tablet in the evening., Disp: , Rfl: Tuberculin Syringe ([employer] Tuberculin Safety Syr) 25G X 5/8 1 ML misc, USE DIRECTED, Disp: 100 each, Rfl: 4 Review of systems: Constitutional: Denies fever, chills, nausea, vomiting GI: Denies abdominal pain, cramping, loose stool, gastric ulcers Musculoskeletal: Denies low back pain, knee pain, systemic arthritis Neurologic: Denies burning, tingling, transient paralysis OBJECTIVE Physical Examination: DERM: Positive hair growth to b/l feet with good skin turgor noted. Negative openings in skin VASC: DP /PT were palpable bilateral. Capillary refill time < 3 seconds Digits 1-5 bilateral NEURO: [employer] [facility] 5.07 monofilament was intact B/L. Vibratory sensation was intact B/L Musculoskeletal: Muscle strength was +5 over 5 all intrinsic and extrinsic muscles tested. Negative Homans test noted Surgical site evaluation: The incision site is healing well without signs infection. Minimal swelling noted. Consistent with the patient's level of surgery consistent with time frame postoperatively. Sutures remain intact without signs of dehiscence. Flaps appear to be viable incision is well coapted no pain ASSESSMENT 1. PAD (peripheral artery disease) ([facility]) 2. Gangrene ([facility]) 3. Type II diabetes mellitus with neurological manifestations ([facility]) 4. Acute osteomyelitis of ankle and foot, left ([facility]) PLAN Today we applied a dry sterile dressing with betadine to the incision site. Sutures removed today may begin to shower he is not to soak the foot. Awaiting his toe filler follow up next week to have that dispensed SUSANA Davis documented in this encounter [facility] 02-01-2024 History of Presen t illness Narrative Patient: Leida Hou : 1965 PCP: Nohemi Phoenix MD SUBJECTIVE This is a 58 y.o. male that presents today The patient is here status post amputation great toe left procedure. Postop week 2. They deny fevers, chills, nausea, vomiting, calf pain and shortness of breath. Pain level is being managed with ice elevation and pain medication. They have been relatively compliant with her postoperative care. Patient is doing well he had revascularization procedure pain has improved significantly. Allergies: Allergies Allergen Reactions Atorvastatin Other Reaction(s): other Codeine Nausea Only Past Medical History: Past Medical History: Diagnosis Date Abnormal ankle brachial index (KUSH) 2020 KUSH normal, TBI is abnormal CHF (congestive heart failure) ([facility]) Cholelithiasis 2017 Diabetes mellitus ([facility]) Diverticulitis 2017 partial obstruction H/O CT scan 10/17/[address] evidence for acute intracranial pathology H/O CT scan 10/17/2021 CSpine No other fractures some spinous process abnormality on C6 History of being hospitalized 2010 CAD and Complications History of echocardiogram 2016 EF25-30% lv is mildly enlarged History of echocardiogram 2020 moderately to severely reduced left ventricular systolic function with wall mothtion anormalities, EF30% normal right ventricular systolic function , moderate diastolic dysfunction, mild to moderate mitral regurgitaion Hypertension (CMS/HCC) MO (myocardial infarction) ([facility]) 2010 Medications: Current Outpatient Medications: amLODIPine (Norvasc) 5 MG tablet, Take 5 mg by mouth in the morning., Disp: , Rfl: aspirin (ASPIR) 81 MG EC tablet, 1 (one) time each day at the same time., Disp: , Rfl: baclofen (Lioresal) 10 MG tablet, TAKE 1 TABLET (10 MG) BY MOUTH 2 TIMES A DAY NEEDED FOR MUSCLE SPASMS NEEDED, Disp: 180 tablet, Rfl: 1 carvedilol (Coreg) 25 MG tablet, every 12 (twelve) hours., Disp: , Rfl: Continuous Glucose Sensor (FreeStyle Shazia 2 Sensor) [facility] [place] Inject 1 each under the skin every 14 (fourteen) days, Disp: 6 each, Rfl: 3 diazePAM (Valium) 5 MG tablet, Take 1 tablet (5 mg) by mouth 1 (one) time each day at the same time PRN, Disp: 30 tablet, Rfl: 0 ezetimibe (Zetia) 10 MG tablet, Take 1 tablet (10 mg) by mouth Daily, Disp: 100 tablet, Rfl: 3 gabapentin (Neurontin) 600 MG tablet, Take 1 tablet (600 mg) by mouth in the morning and 1 tablet (600 mg) in the evening and 1 tablet (600 mg) before bedtime., Disp: 270 tablet, Rfl: 3 glucose blood test strip, 1 (one) time each day at the same time., Disp: , Rfl: ibuprofen 800 MG tablet, 2 (two) times a day PRN, Disp: , Rfl: Insulin Aspart (NovoLOG) 100 UNIT/ML solution, Inject 30 Units under the skin in the morning and 30 Units at noon and 30 Units in the evening. Inject before meals., Disp: 30 mL, Rfl: 3 insulin degludec (Tresiba FlexTouch) 200 UNIT/ML injection, Inject 56 Units under the skin at bedtime, Disp: 9 mL, Rfl: 5 Insulin Syringe-Needle U-100 (BD Veo Insulin Syringe U/F) 31G X 15/64 0.5 ML misc, Infuse 1 Device into a venous catheter in the morning and 1 Device in the evening and 1 Device before bedtime., Disp: 300 each, Rfl: 3 Jardiance 25 MG, TAKE 1 TABLET BY MOUTH EVERY DAY IN THE MORNING, Disp: 30 tablet, Rfl: 11 lisinopril 40 MG tablet, Take 1 tablet by mouth in the morning., Disp: , Rfl: meclizine (Antivert) 25 MG tablet, 1 tablet as needed Orally every 4-6 hours as needed for 90 days, Disp: 30 tablet, Rfl: 1 omeprazole (PriLOSEC) [address] capsule, Take 1 capsule (20 mg) by mouth 1 (one) time each day at the same time, Disp: 100 capsule, Rfl: 3 rosuvastatin (Crestor) 20 MG tablet, 1 (one) time each day at the same time., Disp: , Rfl: sacubitril-valsartan (Entresto) 24-26 MG tablet, Take 1 tablet by mouth in the morning and 1 tablet in the evening., Disp: , Rfl: Tuberculin Syringe (UltiCare Tuberculin Safety Syr) 25G X 5/8 1 ML misc, USE DIRECTED, Disp: 100 each, Rfl: 4 Review of systems: Constitutional: Denies fever, chills, nausea, vomiting GI: Denies abdominal pain, cramping, loose stool, gastric ulcers Musculoskeletal: Denies low back pain, knee pain, systemic arthritis Neurologic: Denies burning, tingling, transient paralysis OBJECTIVE Physical Examination: DERM: Positive hair growth to b/l feet with good skin turgor noted. Negative openings in skin VASC: DP /PT were palpable bilateral. Capillary refill time < 3 seconds Digits 1-5 bilateral NEURO: [employer] [facility] 5.07 monofilament was intact B/L. Vibratory sensation was intact B/L Musculoskeletal: Muscle strength was +5 over 5 all intrinsic and extrinsic muscles tested. Negative Homans test noted Surgical site evaluation: The incision site is healing well without signs infection. Minimal swelling noted. Consistent with the patient's level of surgery consistent with time frame postoperatively. Sutures remain intact without signs of dehiscence. Flaps appear to be viable ASSESSMENT 1. PAD (peripheral artery disease) ([facility]) 2. Gangrene ([facility]) 3. Type II diabetes mellitus with neurological manifestations ([facility]) 4. Acute osteomyelitis of ankle and foot, left ([facility]) PLAN Today we applied a dry sterile dressing with betadine to the incision site. Removed some of the sutures today I recommended orthotic device with a toe filler Patient was digitally scan today for custom-molded orthotic devices. Care was taken to place the subtalar joint in neutral position. The patient was informed that the orthotics will take 3 weeks to arrive from the laboratory. Sutures will be removed next week he may start partial weight-bearing in his surgical shoe SUSANA Davis documented in this encounter [facility] 01-25-2024 History of Presen t illness Narrative Images from the original note were not included. Patient: Leida Hou : 1965 PCP: Nohemi Phoenix MD SUBJECTIVE This is a 58 y.o. male that presents today The patient is here status post amputation great toe left procedure. Postop week 1. They deny fevers, chills, nausea, vomiting, calf pain and shortness of breath. Pain level is being managed with ice elevation and pain medication. They have been relatively compliant with her postoperative care. Patient is doing well he had revascularization procedure pain has improved significantly. Allergies: Allergies Allergen Reactions Atorvastatin Other Reaction(s): other Codeine Nausea Only Past Medical History: Past Medical History: Diagnosis Date Abnormal ankle brachial index (KUSH) 2020 KUSH normal, TBI is abnormal CHF (congestive heart failure) ([facility]) Cholelithiasis 2017 Diabetes mellitus ([facility]) Diverticulitis 2017 partial obstruction H/O CT scan 10/17/[address] evidence for acute intracranial pathology H/O CT scan 10/17/2021 CSpine No other fractures some spinous process abnormality on C6 History of being hospitalized 2010 CAD and Complications History of echocardiogram 2016 EF25-30% lv is mildly enlarged History of echocardiogram 2020 moderately to severely reduced left ventricular systolic function with wall mothtion anormalities, EF30% normal right ventricular systolic function , moderate diastolic dysfunction, mild to moderate mitral regurgitaion Hypertension ([facility]) MO (myocardial infarction) ([facility]) 2010 Medications: Current Outpatient Medications: amLODIPine (Norvasc) 5 MG tablet, Take 5 mg by mouth in the morning., Disp: , Rfl: aspirin (ASPIR) 81 MG EC tablet, 1 (one) time each day at the same time., Disp: , Rfl: baclofen (Lioresal) 10 MG tablet, TAKE 1 TABLET (10 MG) BY MOUTH 2 TIMES A DAY NEEDED FOR MUSCLE SPASMS NEEDED, Disp: 180 tablet, Rfl: 1 carvedilol (Coreg) 25 MG tablet, every 12 (twelve) hours., Disp: , Rfl: Continuous Glucose Sensor (FreeStyle Shazia 2 Sensor) misc, Inject 1 each under the skin every 14 (fourteen) days, Disp: 6 each, Rfl: 3 diazePAM (Valium) 5 MG tablet, Take 1 tablet (5 mg) by mouth 1 (one) time each day at the same time PRN, Disp: 30 tablet, Rfl: 0 ezetimibe (Zetia) 10 MG tablet, Take 1 tablet (10 mg) by mouth Daily, Disp: 100 tablet, Rfl: 3 gabapentin (Neurontin) 600 MG tablet, Take 1 tablet (600 mg) by mouth in the morning and 1 tablet (600 mg) in the evening and 1 tablet (600 mg) before bedtime., Disp: 270 tablet, Rfl: 3 glucose blood test strip, 1 (one) time each day at the same time., Disp: , Rfl: ibuprofen 800 MG tablet, 2 (two) times a day PRN, Disp: , Rfl: Insulin Aspart (NovoLOG) 100 UNIT/ML solution, Inject 30 Units under the skin in the morning and 30 Units at noon and 30 Units in the evening. Inject before meals., Disp: 30 mL, Rfl: 3 insulin degludec (Tresiba FlexTouch) 200 UNIT/ML injection, Inject 56 Units under the skin at bedtime, Disp: 9 mL, Rfl: 5 Insulin Syringe-Needle U-100 (BD Veo Insulin Syringe U/F) 31G X 15/64 0.5 ML misc, Infuse 1 Device into a venous catheter in the morning and 1 Device in the evening and 1 Device before bedtime., Disp: 300 each, Rfl: 3 Jardiance 25 MG, TAKE 1 TABLET BY MOUTH EVERY DAY IN THE MORNING, Disp: 30 tablet, Rfl: 11 lisinopril 40 MG tablet, Take 1 tablet by mouth in the morning., Disp: , Rfl: meclizine (Antivert) 25 MG tablet, 1 tablet as needed Orally every 4-6 hours as needed for 90 days, Disp: 30 tablet, Rfl: 1 omeprazole (PriLOSEC) [address] capsule, Take 1 capsule (20 mg) by mouth 1 (one) time each day at the same time, Disp: 100 capsule, Rfl: 3 rosuvastatin (Crestor) 20 MG tablet, 1 (one) time each day at the same time., Disp: , Rfl: sacubitril-valsartan (Entresto) 24-26 MG tablet, Take 1 tablet by mouth in the morning and 1 tablet in the evening., Disp: , Rfl: sulfamethoxazole-trimethoprim (Bactrim DS) 800-160 MG per tablet, Take 1 tablet by mouth in the morning and 1 tablet before bedtime. Do all this for 10 days. TAKE 1 PILL P.O. B.I.D. FOR 10 DAYS., Disp: 20 tablet, Rfl: 0 Tuberculin Syringe ([employer] Tuberculin Safety Syr) 25G X 5/8 1 ML misc, USE DIRECTED, Disp: 100 each, Rfl: 4 Review of systems: Constitutional: Denies fever, chills, nausea, vomiting GI: Denies abdominal pain, cramping, loose stool, gastric ulcers Musculoskeletal: Denies low back pain, knee pain, systemic arthritis Neurologic: Denies burning, tingling, transient paralysis OBJECTIVE Physical Examination: DERM: Positive hair growth to b/l feet with good skin turgor noted. Negative openings in skin VASC: DP /PT were palpable bilateral. Capillary refill time < 3 seconds Digits 1-5 bilateral NEURO: [employer] [facility] 5.07 monofilament was intact B/L. Vibratory sensation was intact B/L Musculoskeletal: Muscle strength was +5 over 5 all intrinsic and extrinsic muscles tested. Negative Homans test noted Surgical site evaluation: The incision site is healing well without signs infection. Minimal swelling noted. Consistent with the patient's level of surgery consistent with time frame postoperatively. Sutures remain intact without signs of dehiscence. Flaps appear to be viable ASSESSMENT 1. PAD (peripheral artery disease) (CMS/HCC) 2. Gangrene (CMS/HCC) 3. Type II diabetes mellitus with neurological manifestations (CMS/HCC) 4. 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 Covered the incision with 4x4s, Kerlix and Clifford bandage. The Patient is to continue ice and elevation on a regular basis. They were reminded to remain compliant with her weight-bearing status in the ambulatory surgical device. Recommended an orthotic with a toe filler we will pre cert the orthotic with the insurance company. Flaps appear to be viable as well SUSANA Davis documented in this encounter [facility] 01-18-2024 Telephone encount er Note The prescription has been sent to the pharmacy. Thank you. [facility] 01-18-2024 Miscellaneous Notes Formattin g of this note might be different from the original. The prescription has been sent to the pharmacy. Thank you. documented in this encounter [facility] 01-13-2024 Telephone encount er Note Phone #: [phone] Insurance: Payor: BCBS / Plan: BCBS / Product Type: *No Product type* / Preferred Date/Time: First Available [x] ROCIO [x] Patient Name: Leida Hou : 1965 Surgeon: Dr. Yonatan Rosado [x] Dr. Casi Rosado [] Location: [facility] [x] [facility] [place] [] [facility] [] Procedure(s): amputation left great toe CPT Code(s): 14355 Diagnosis: ICD-10-CM 1. Gangrene (CMS/HCC) I96 2. PAD (peripheral artery disease) (CMS/HCC) I73.9 Procedure Time: 30 min [x] 1 Hour [] 1.5 Hour [] 2 Hours [] Anesthesia: MAC [] General [] Local [x] Popliteal Block [] Position: Supine [x] Prone [] Lateral [] Special Requests: C-arm [] Pulse Lavage [] VersaJet [] Special Equipment: Arthrex plate /screws [] Internal brace [] Arthrex FiberTak [] Biopro Staple [] Biopro Jim Impant [] Other [] Pre-op Orders: Abx 30 min Prior: 2g Ancef [] Clindamycin 600mg [] Vancomycin 1 g [] Post-op WB: Partial WB [x] Non-WB [] Crutches [] Walker [] Knee Scooter [] PCP Clearance: Nohemi Phoenix MD Other Clearance: Cardiology [] Rheumatology [] Other [] [facility] 01-13-2024 Miscellaneous Notes Formattin g of this note is different from the original. Phone #: [phone] Insurance: Payor: BCBS / Plan: BCBS / Product Type: *No Product type* / Preferred Date/Time: First Available [x] ROCIO [x] Patient Name: Leida Hou : 1965 Surgeon: Dr. Yonatan Rosado [x] Dr. Casi Rosado [] Location: [facility] [x] [facility] [] [facility] [] Procedure(s): amputation left great toe CPT Code(s): 05961 Diagnosis: ICD-10-CM 1. Gangrene ([facility]) I96 2. PAD (peripheral artery disease) ([facility]) I73.9 Procedure Time: 30 min [x] 1 Hour [] 1.5 Hour [] 2 Hours [] Anesthesia: MAC [] General [] Local [x] Popliteal Block [] Position: Supine [x] Prone [] Lateral [] Special Requests: C-arm [] Pulse Lavage [] VersaJet [] Special Equipment: Arthrex plate /screws [] Internal brace [] Arthrex FiberTak [] Biopro Staple [] Biopro Jim Impant [] Other [] Pre-op Orders: Abx 30 min Prior: 2g Ancef [] Clindamycin 600mg [] Vancomycin 1 g [] Post-op WB: Partial WB [x] Non-WB [] Crutches [] Walker [] Knee Scooter [] PCP Clearance: Nohemi Phoenix MD Other Clearance: Cardiology [] Rheumatology [] Other [] documented in this encounter [facility] 01-13-2024 History of Presen t illness Narrative Images from the original note were not included. Patient: Leida Hou : 1965 PCP: Nohemi Phoenix MD SUBJECTIVE This is a 58 y.o. male that presents today for a chief complaint of abscess plantar aspect of the right great toe has been present for 2 weeks but has developed an ulceration prior to that. He was seen by his primary care physician and placed on Bactrim DS empirically. He has a red hot swollen plantar aspect of the right great toe. He is a diabetic sugars have been running somewhat high according to the patient. He does deny fever chills nausea vomiting. Status post incision and drainage of the left great toe region currently on Bactrim DS. Wound is still with the level of muscle fascia. Cultures revealed MRSA 2+ staph aureus currently on Bactrim DS which is susceptible. Toe is becoming necrotic at the distal aspect he had an angioplasty performed see notes below and we will have a 2nd procedure performed on Thursday with vascular surgery. Patient will most likely require amputation of the left great toe. Media Information Document Information CT FOOT LT WO CON The [address] [address] [address] Scan Report Signed Patient: LEIDA HOU MR#: [id number] : 1965 Acct:[id number] Age/Sex: 58 / M ADM Date: 12/30/23 Loc: RAD Attending Dr: YONATAN ROSADO M.D. 1. There appears to be a small [...] as described above. 4. Atherosclerotic vascular disease. Lab Results Component Value Date HGBA1C 10.0 12/16/2023 Allergies: Allergies Allergen Reactions Atorvastatin Other Reaction(s): other Codeine Nausea Only Past Medical History: Past Medical History: Diagnosis Date Abnormal ankle brachial index (KUSH) 2020 KUSH normal, TBI is abnormal CHF (congestive heart failure) ([facility]) Cholelithiasis 2017 Diabetes mellitus ([facility]) Diverticulitis 2017 partial obstruction H/O CT scan 10/17/[address] evidence for acute intracranial pathology H/O CT scan 10/17/2021 CSpine No other fractures some spinous process abnormality on C6 History of being hospitalized 2010 CAD and Complications History of echocardiogram 2016 EF25-30% lv is mildly enlarged History of echocardiogram 2020 moderately to severely reduced left ventricular systolic function with wall mothtion anormalities, EF30% normal right ventricular systolic function , moderate diastolic dysfunction, mild to moderate mitral regurgitaion Hypertension ([facility]) MO (myocardial infarction) ([facility]) 2010 Medications: Current Outpatient Medications: amLODIPine (Norvasc) 5 MG tablet, Take 5 mg by mouth in the morning., Disp: , Rfl: aspirin (ASPIR) 81 MG EC tablet, 1 (one) time each day at the same time., Disp: , Rfl: baclofen (Lioresal) 10 MG tablet, TAKE 1 TABLET (10 MG) BY MOUTH 2 TIMES A DAY NEEDED FOR MUSCLE SPASMS NEEDED, Disp: 180 tablet, Rfl: 1 carvedilol (Coreg) 25 MG tablet, every 12 (twelve) hours., Disp: , Rfl: Continuous Glucose Sensor (FreeStyle Shazia 2 Sensor) [facility] Inject 1 each under the skin every 14 (fourteen) days, Disp: 6 each, Rfl: 3 diazePAM (Valium) 5 MG tablet, Take 1 tablet (5 mg) by mouth 1 (one) time each day at the same time PRN, Disp: 30 tablet, Rfl: 0 ezetimibe (Zetia) 10 MG tablet, Take 1 tablet (10 mg) by mouth Daily, Disp: 100 tablet, Rfl: 3 gabapentin (Neurontin) 600 MG tablet, Take 1 tablet (600 mg) by mouth in the morning and 1 tablet (600 mg) in the evening and 1 tablet (600 mg) before bedtime., Disp: 270 tablet, Rfl: 3 glucose blood test strip, 1 (one) time each day at the same time., Disp: , Rfl: ibuprofen 800 MG tablet, 2 (two) times a day PRN, Disp: , Rfl: insulin degludec (Tresiba FlexTouch) 200 UNIT/ML injection, Inject 56 Units under the skin at bedtime, Disp: 9 mL, Rfl: 5 Insulin Syringe-Needle U-100 (BD Veo Insulin Syringe U/F) 31G X 15/64 0.5 ML misc, Infuse 1 Device into a venous catheter in the morning and 1 Device in the evening and 1 Device before bedtime., Disp: 300 each, Rfl: 3 Jardiance 25 MG, TAKE 1 TABLET BY MOUTH EVERY DAY IN THE MORNING, Disp: 30 tablet, Rfl: 11 lisinopril 40 MG tablet, Take 1 tablet by mouth in the morning., Disp: , Rfl: meclizine (Antivert) 25 MG tablet, 1 tablet as needed Orally every 4-6 hours as needed for 90 days, Disp: 30 tablet, Rfl: 1 NovoLOG 100 UNIT/ML solution, INJECT 30 UNITS UNDER THE SKIN BEFORE MEALS, Disp: 30 mL, Rfl: 3 omeprazole (PriLOSEC) [address] capsule, Take 1 capsule (20 mg) by mouth 1 (one) time each day at the same time, Disp: 100 capsule, Rfl: 3 oxyCODONE-acetaminophen (Percocet) 5-325 MG tablet, Take 1 tablet by mouth every 6 (six) hours if needed for severe pain for up to 5 days TAKE 1 PILL P.O. Q.6H P.R.N. PAIN, Disp: 15 tablet, Rfl: 0 rosuvastatin (Crestor) 20 MG tablet, 1 (one) time each day at the same time., Disp: , Rfl: sacubitril-valsartan (Entresto) 24-26 MG tablet, Take 1 tablet by mouth in the morning and 1 tablet in the evening., Disp: , Rfl: sulfamethoxazole-trimethoprim (Bactrim DS) 800-160 MG per tablet, Take 1 tablet by mouth in the morning and 1 tablet before bedtime. Do all this for 10 days. TAKE 1 PILL P.O. B.I.D. FOR 10 DAYS., Disp: 20 tablet, Rfl: 0 Tuberculin Syringe (UltiCare Tuberculin Safety Syr) 25G X 5/8 1 ML misc, USE DIRECTED, Disp: 100 each, Rfl: 4 ROS: Constitutional: Denies fever, chills, nausea, vomiting GI: Denies abdominal pain, cramping, loose stool, gastric ulcers Musculoskeletal: Denies low back pain, knee pain, systemic arthritis Neurologic: Denies burning, tingling, transient paralysis OBJECTIVE Physical examination: Vascular: Dorsalis pedis posterior tibial pulses are palpable bilateral, no edema noted Neuro: [facility] 5.07 monofilament intact, vibratory sensation intact Derm: All hair growth noted skin temperature is warm to cool knees to toes Abscess noted at the plantar aspect of the left great toe 1st metatarsophalangeal joint. L Abscess has resolved wound still open to level muscle fascia measuring 1 cm x 0.5 cm resend cm deep no purulence noted. Distal aspect of the toe still has some mild drainage in his starting to become dark possible dysvascular. Gangrene appears to be developing Photographs taken today Musculoskeletal: Muscle strength +5/5 all intrinsic and extrinsic muscles tested ASSESSMENT 1. PAD (peripheral artery disease) (CMS/HCC) 2. Gangrene (CMS/HCC) PLAN I Educated the patient on a gangrene of the left great toe. Patient will be having a 2nd vascular procedure performed on Thursday explained to most likely he will require amputation of the left great toe. The toe has significant gangrene. At this point our plan is to keep the area clean and dry eyes the continue with Betadine daily. Follow up with me on Thursday to further discuss possible amputation. He is to continue with the topical antibiotics as prescribed. The patient was educated on the pre, darshana, postoperative course of the procedure in great detail. We discussed further conservative therapies which the patient has attempted and has failed. I discussed the surgical procedure in great detail including the risks and possible complications. We discussed the following complications in great detail including but not limited to: Pain, infection, prolonged swelling, numbness, tingling, burning, nonhealing wound, nonunion, malunion, chronic pain, development of complex regional pain syndrome, development of deep venous thrombosis. Patient fully understood all possible risks and complications. All questions have been asked and answered. They have consented for the above-stated procedure. SUSANA Davis documented in this encounter [facility] 01-08-2024 History of Presen t illness Narrative Images from the original note were not included. Patient: Leida Hou : 1965 PCP: Nohemi Phoenix MD SUBJECTIVE This is a 58 y.o. male that presents today for a chief complaint of abscess plantar aspect of the right great toe has been present for 2 weeks but has developed an ulceration prior to that. He was seen by his primary care physician and placed on Bactrim DS empirically. He has a red hot swollen plantar aspect of the right great toe. He is a diabetic sugars have been running somewhat high according to the patient. He does deny fever chills nausea vomiting. Status post incision and drainage of the left great toe region currently on Bactrim DS. Wound is still with the level of muscle fascia. Cultures revealed MRSA 2+ staph aureus currently on Bactrim DS which is susceptible. Toe is becoming necrotic at the distal aspect he had an angioplasty performed see notes below and we will have a 2nd procedure performed on Thursday with vascular surgery. Patient will most likely require amputation of the left great toe. Media Information Document Information CT FOOT LT WO CON The [place] [id number] CT Scan Report Signed Patient: LEIDA HOU MR#: [id number] : 1965 Acct:[id number] Age/Sex: 58 / M ADM Date: 12/30/23 Loc: RAD Attending Dr: YONATAN ROSADO M.D. 1. There appears to be a small [...] as described above. 4. Atherosclerotic vascular disease. Lab Results Component Value Date HGBA1C 10.0 12/16/2023 Allergies: Allergies Allergen Reactions Atorvastatin Other Reaction(s): other Codeine Nausea Only Past Medical History: Past Medical History: Diagnosis Date Abnormal ankle brachial index (KUSH) 2020 KUSH normal, TBI is abnormal CHF (congestive heart failure) ([facility]) Cholelithiasis 2016 Diabetes mellitus ([facility]) Diverticulitis 2016 partial obstruction H/O CT scan 10/17/[address] evidence for acute intracranial pathology H/O CT scan 10/17/2021 CSpine No other fractures some spinous process abnormality on C6 History of being hospitalized 2010 CAD and Complications History of echocardiogram 2016 EF25-30% lv is mildly enlarged History of echocardiogram 2020 moderately to severely reduced left ventricular systolic function with wall mothtion anormalities, EF30% normal right ventricular systolic function , moderate diastolic dysfunction, mild to moderate mitral regurgitaion Hypertension ([facility]) MO (myocardial infarction) ([facility]) 2010 Medications: Current Outpatient Medications: amLODIPine (Norvasc) 5 MG tablet, Take 5 mg by mouth in the morning., Disp: , Rfl: aspirin (ASPIR) 81 MG EC tablet, 1 (one) time each day at the same time., Disp: , Rfl: baclofen (Lioresal) 10 MG tablet, TAKE 1 TABLET (10 MG) BY MOUTH 2 TIMES A DAY NEEDED FOR MUSCLE SPASMS NEEDED, Disp: 180 tablet, Rfl: 1 carvedilol (Coreg) 25 MG tablet, every 12 (twelve) hours., Disp: , Rfl: Continuous Glucose Sensor (FreeStyle Shazia 2 Sensor) [facility] [place] Inject 1 each under the skin every 14 (fourteen) days, Disp: 6 each, Rfl: 3 diazePAM (Valium) 5 MG tablet, Take 1 tablet (5 mg) by mouth 1 (one) time each day at the same time PRN, Disp: 30 tablet, Rfl: 0 ezetimibe (Zetia) 10 MG tablet, Take 1 tablet (10 mg) by mouth Daily, Disp: 100 tablet, Rfl: 3 gabapentin (Neurontin) 600 MG tablet, Take 1 tablet (600 mg) by mouth in the morning and 1 tablet (600 mg) in the evening and 1 tablet (600 mg) before bedtime., Disp: 270 tablet, Rfl: 3 glucose blood test strip, 1 (one) time each day at the same time., Disp: , Rfl: ibuprofen 800 MG tablet, 2 (two) times a day PRN, Disp: , Rfl: insulin degludec (Tresiba FlexTouch) 200 UNIT/ML injection, Inject 56 Units under the skin at bedtime, Disp: 9 mL, Rfl: 5 Insulin Syringe-Needle U-100 (BD Veo Insulin Syringe U/F) 31G X 15/64 0.5 ML misc, Infuse 1 Device into a venous catheter in the morning and 1 Device in the evening and 1 Device before bedtime., Disp: 300 each, Rfl: 3 Jardiance 25 MG, TAKE 1 TABLET BY MOUTH EVERY DAY IN THE MORNING, Disp: 30 tablet, Rfl: 11 lisinopril 40 MG tablet, Take 1 tablet by mouth in the morning., Disp: , Rfl: meclizine (Antivert) 25 MG tablet, 1 tablet as needed Orally every 4-6 hours as needed for 90 days, Disp: 30 tablet, Rfl: 1 NovoLOG 100 UNIT/ML solution, INJECT 30 UNITS UNDER THE SKIN BEFORE MEALS, Disp: 30 mL, Rfl: 3 omeprazole (PriLOSEC) [address] capsule, Take 1 capsule (20 mg) by mouth 1 (one) time each day at the same time, Disp: 100 capsule, Rfl: 3 oxyCODONE-acetaminophen (Percocet) 5-325 MG tablet, Take 1 tablet by mouth every 6 (six) hours if needed for severe pain for up to 5 days, Disp: 20 tablet, Rfl: 0 rosuvastatin (Crestor) 20 MG tablet, 1 (one) time each day at the same time., Disp: , Rfl: sacubitril-valsartan (Entresto) 24-26 MG tablet, Take 1 tablet by mouth in the morning and 1 tablet in the evening., Disp: , Rfl: sulfamethoxazole-trimethoprim (Bactrim DS) 800-160 MG per tablet, Take 1 tablet by mouth in the morning and 1 tablet before bedtime. Do all this for 10 days. TAKE 1 PILL P.O. B.I.D. FOR 10 DAYS., Disp: 20 tablet, Rfl: 0 Tuberculin Syringe ([facility] Tub[facility]in Safety Syr) 25G X 5/8 1 ML misc, USE DIRECTED, Disp: 100 each, Rfl: 4 ROS: Constitutional: Denies fever, chills, nausea, vomiting GI: Denies abdominal pain, cramping, loose stool, gastric ulcers Musculoskeletal: Denies low back pain, knee pain, systemic arthritis Neurologic: Denies burning, tingling, transient paralysis OBJECTIVE Physical examination: Vascular: Dorsalis pedis posterior tibial pulses are palpable bilateral, no edema noted Neuro: [place] 5.07 monofilament intact, vibratory sensation intact Derm: All hair growth noted skin temperature is warm to cool knees to toes Abscess noted at the plantar aspect of the left great toe 1st metatarsophalangeal joint. L Abscess has resolved wound still open to level muscle fascia measuring 1 cm x 0.5 cm resend cm deep no purulence noted. Distal aspect of the toe still has some mild drainage in his starting to become dark possible dysvascular. Gangrene appears to be developing Photographs taken today Musculoskeletal: Muscle strength +5/5 all intrinsic and extrinsic muscles tested ASSESSMENT 1. PAD (peripheral artery disease) (CMS/HCC) 2. Gangrene ([facility]) PLAN I Educated the patient on a gangrene of the left great toe. Patient will be having a 2nd vascular procedure performed on Thursday explained to most likely he will require amputation of the left great toe once he has been cleared by vascular surgery. At this point our plan is to keep the area clean and dry eyes the continue with Betadine daily. Follow up with me on Thursday to further discuss possible amputation. He is to continue with the topical antibiotics as prescribed. SUSANA Davis documented in this encounter [facility] 01-07-2024 Procedure note [facility] 01-06-2024 Evaluation note Diagnosis Onset Date Resolution Gangrene associated with diabetes mellitus acute January 06, 2024 11:25am [facility] Work Phone: 1(489) 245-748811-11-2024 History of Present illness Narrative* SUSANA Davis - 01/04/2024 11:30 AM EST Images from the original note were not included. Patient: Leida Hou : 1965 PCP: Nohemi Phoenix MD SUBJECTIVE This is a 58 y.o. male that presents today for a chief complaint of bscess plantar aspect of the right great toe has been present for 2 weeks but has developed an ulceration prior to that. He was seen by his primary care physician and placed on Bactrim DS empirically. He has a red hot swollen plantar aspect of the right great toe. He is a diabetic sugars have been running somewhat high according to the patient. He does deny fever chills nausea vomiting. Status post incision and drainage of the left great toe region currently on Bactrim DS. Wound is still with the level of muscle fascia. Cultures revealed MRSA 2+ staph aureus currently on Bactrim DS which is susceptible. Concern at this point as the toe is becoming dark in his still open and has some mild drainage noted [place] [address] CT Scan Report Signed Patient: LEIDA HOU MR#: [id number] : 1965 Acct:[id number] Age/Sex: 58 / M ADM Date: 12/30/23 Loc: RAD Attending Dr: YONATAN ROSAOD M.D. Ordering Physician: YONATAN ROSADO M.D. Date of Service: 12/30/23 Procedure(s): CT foot LT wo con Accession Number(s): [id number] 1. There appears to be a small [...] Atherosclerotic vascular disease. Electronically authenticated by: DONTA BALLARD Date: 01/02/2024 08:47 [place] [address] Vein Report Signed Patient: LEIDA HOU MR#: [id number] : 1965 Acct:[id number] Age/Sex: 58 / M ADM Date: 12/30/23 Loc: VC Attending Dr: YONATAN ROSADO M.D. Ordering Physician: YONATAN ROSADO M.D. Date of Service: 12/30/23 Procedure(s): VC SEGMENTAL PRESSURES Accession Number(s): [id number] cc: NOHEMI PHOENIX ; YONATAN ROSADO M.D. [place] [address] Patient Name: LEIDA HOU MRN: [facility]:[id number] date: 1965 Sex: M Assigned Patient Location: Current Patient Location: Accession/Order Number: [id number] Exam Date: 12/30/2023 13:05 Report Date: 12/31/2023 07:02 At the request of: YONATAN ROSADO Procedure: VC SEGMENTAL PRESSURES EXAM: VC [...] M.D. Signed By: 12/31/23703 DD/ 1 TD/TT: Rd Lab Technician: Breast Imaging Recommendations Leida Hou No recommendations exist for this order. Signed by Signed Time Phone Pager Radiologist RadiologyMD 12/31/2023 07:04 [phone] Exam Information Status Exam Begun Exam Ended Final External Results Report Open External Results Report Encounter View Encounter SEGMENTAL BLOOD PRESSURE Order: [id number] Status: Final result Visible to patient: Yes (not seen) Next appt: 01/08/2024 at 09:40 AM in Podiatry (Yonatan Rosado, SUSANA FACFAS) 0 Result Notes Details Reading Physician Reading Date Result Priority Radiologist Radiology, [phone] 12/31/2023 Narrative & Impression The [address] [address] Vein Report Signed Patient: LEIDA HOU MR#: [id number] : 1965 Acct:[id number] Age/Sex: 58 / M ADM Date: 12/30/23 Loc: VC Attending Dr: YONATAN ROSADO M.D. Ordering Physician: YONATAN ROSADO M.D. Date of Service: 12/30/23 Procedure(s): VC SEGMENTAL PRESSURES Accession Number(s): [id number] cc: NOHEMI PHOENIX ; YONATAN ROSADO M.D. [address] [address] Patient Name: LEIDA HOU MRN: [id number] date: 1965 Sex: M Assigned Patient Location: Current Patient Location: Accession/Order Number: [id number] Exam Date: 12/30/2023 13:05 Report Date: 12/31/2023 07:02 At the request of: YONATAN ROSADO Procedure: VC SEGMENTAL PRESSURES EXAM: VC [...] Dictated By: Chester Lino M.D. Signed By: 12/31/23 0704 Dictated By: Donta Ballard M.D. Signed By: 01/02/24 0849 DD/ TD/TT: Rd Lab Technician: Lab Results Component Value Date HGBA1C 10.0 12/16/2023 Allergies: Allergies Allergen Reactions Atorvastatin Other Reaction(s): other Codeine Nausea Only Past Medical History: Past Medical History: Diagnosis Date Abnormal ankle brachial index (KUSH) 2020 KUSH normal, TBI is abnormal CHF (congestive heart failure) ([facility]) Cholelithiasis 2016 Diabetes mellitus ([facility]) Diverticulitis 2017 partial obstruction H/O CT scan 10/17/[address] evidence for acute intracranial pathology H/O CT scan 10/17/2021 CSpine No other fractures some spinous process abnormality on C6 History of being hospitalized 2010 CAD and Complications History of echocardiogram 2016 EF25-30% lv is mildly enlarged History of echocardiogram 2020 moderately to severely reduced left ventricular systolic function with wall mothtion anormalities, EF30% normal right ventricular systolic function , moderate diastolic dysfunction, mild to moderate mitral regurgitaion Hypertension ([facility]) MO (myocardial infarction) ([facility]) 2010 Medications: Current Outpatient Medications: amLODIPine (Norvasc) 5 MG tablet, Take 5 mg by mouth in the morning., Disp: , Rfl: aspirin (ASPIR) 81 MG EC tablet, 1 (one) time each day at the same time., Disp: , Rfl: baclofen (Lioresal) 10 MG tablet, TAKE 1 TABLET (10 MG) BY MOUTH 2 TIMES A DAY NEEDED FOR MUSCLESPASMS NEEDED, Disp: 180 tablet, Rfl: 1 carvedilol (Coreg) 25 MG tablet, every 12 (twelve) hours., Disp: , Rfl: Continuous Glucose Sensor (FreeStyle Shazia 2 Sensor) [facility] [place] Inject 1 each under the skin every 14 (fourteen) days, Disp: 6 each, Rfl: 3 diazePAM (Valium) 5 MG tablet, Take 1 tablet (5 mg) by mouth 1 (one) time each day at the same timePRN, Disp: 30 tablet, Rfl: 0 ezetimibe (Zetia) 10 MG tablet, Take 1 tablet (10 mg) by mouth Daily, Disp: 100 tablet, Rfl: 3 gabapentin (Neurontin) 600 MG tablet, Take 1 tablet (600 mg) by mouth in the morning and 1 tablet (600 mg) in the evening and 1 tablet (600 mg) before bedtime., Disp: 270 tablet, Rfl: 3 glucose blood test strip, 1 (one) time each day at the same time., Disp: , Rfl: ibuprofen 800 MG tablet, 2 (two) times a day PRN, Disp: , Rfl: insulin degludec (Tresiba FlexTouch) 200 UNIT/ML injection, Inject 56 Units under the skin at bedtime, Disp: 9 mL, Rfl: 5 Insulin Syringe-Needle U-100 (BD Veo Insulin Syringe U/F) 31G X 15/64 0.5 ML misc, Infuse 1 Deviceinto a venous catheter in the morning and 1 Device in the evening and 1 Device before bedtime., Disp: 300 each, Rfl: 3 Jardiance 25 MG, TAKE 1 TABLET BY MOUTH EVERY DAY IN THE MORNING, Disp: 30 tablet, Rfl: 11 lisinopril 40 MG tablet, Take 1 tablet by mouth in the morning., Disp: , Rfl: meclizine (Antivert) 25 MG tablet, 1 tablet as needed Orally every 4-6 hours as needed for 90 days,Disp: 30 tablet, Rfl: 1 NovoLOG 100 UNIT/ML solution, INJECT 30 UNITS UNDER THE SKIN BEFORE MEALS, Disp: 30 mL, Rfl: 3 omeprazole (PriLOSEC) [address] capsule, Take 1 capsule (20 mg) by mouth 1 (one) time each day at the same time, Disp: 100 capsule, Rfl: 3 oxyCODONE-acetaminophen (Percocet) 5-325 MG tablet, Take 1 tablet by mouth every 6 (six) hours if needed for severe pain for up to 5 days, Disp: 20 tablet, Rfl: 0 rosuvastatin (Crestor) 20 MG tablet, 1 (one) time each day at the same time., Disp: , Rfl: sacubitril-valsartan (Entresto) 24-26 MG tablet, Take 1 tablet by mouth in the morning and 1 tabletin the evening., Disp: , Rfl: sulfamethoxazole-trimethoprim (Bactrim DS) 800-160 MG per tablet, Take 1 tablet by mouth in the morning and 1 tablet before bedtime. Do all this for 10 days. TAKE 1 PILL P.O. B.I.D. FOR 10 DAYS., Disp: 20 tablet, Rfl: 0 Tuberculin Syringe ([employer] Tuberculin Safety Syr) 25G X 5/8 1 ML misc, USE DIRECTED, Disp: 100 each, Rfl: 4 ROS: Constitutional: Denies fever, chills, nausea, vomiting GI: Denies abdominal pain, cramping, loose stool, gastric ulcers Musculoskeletal: Denies low back pain, knee pain, systemic arthritis Neurologic: Denies burning, tingling, transient paralysis OBJECTIVE Physical examination: Vascular: Dorsalis pedis posterior tibial pulses are palpable bilateral, no edema noted Neuro: [place] 5.07 monofilament intact, vibratory sensation intact Derm: All hair growth noted skin temperature is warm to cool knees to toes Abscess noted at the plantar aspect of the left great toe 1st metatarsophalangeal joint. L Abscess has resolved wound still open to level muscle fascia measuring 1 cm x 0.5 cm resend cm deep no purulence noted. Distal aspectof the toe still has some mild drainage in his starting to become dark possible dysvascular. Gangrene appears to be developing Musculoskeletal: Muscle strength +5/5 all intrinsic and extrinsic muscles tested ASSESSMENT 1. 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 PAD (peripheral artery disease) (CMS/HCC) 3. Gangrene (CMS/HCC) PLAN I Educated the patient on the PVR evaluation which shows significant peripheral arterial disease CTscan is negative for osteomyelitis. Patient was referred to vascular surgery as a toe is becoming quite dusky and may need vascular intervention. I briefly discussed the amputation of the great toe however will have vascular surgery evaluate distal perfusion. He is to continue with the Bactrim DS Idid dispensed pain medication as he is in significant pain Percocet 5 mg every 6 hours for pain. Follow up with Dr. Fields wed. Continue offload the area and a surgical shoe SUSANA Davis [facility] [id number] History of Present illness Narrative* SUSANA Davis - 12/28/2023 10:40 AM EST Images from the original note were not included. Patient: Leida Hou : 1965 PCP: Nohemi Phoenix MD SUBJECTIVE This is a 58 y.o. male that presents today for a chief complaint of bscess plantar aspect of the right great toe has been present for 2 weeks but has developed an ulceration prior to that. He was seen by his primary care physician and placed on Bactrim DS empirically. He has a red hot swollen plantar aspect of the right great toe. He is a diabetic sugars have been running somewhat high according to the patient. He does deny fever chills nausea vomiting. Status post incision and drainage of the left great toe region currently on Bactrim DS. Wound is still with the level of muscle fascia. Cultures revealed MRSA 2+ staph aureus currently on Bactrim DS which is susceptible. Concern at this point as the toe is becoming dark in his still open and has some mild drainage noted Lab Results Component Value Date HGBA1C 10.0 12/16/2023 Allergies: Allergies Allergen Reactions Atorvastatin Other Reaction(s): other Codeine Nausea Only Past Medical History: Past Medical History: Diagnosis Date Abnormal ankle brachial index (KUSH) 2020 KUSH normal, TBI is abnormal CHF (congestive heart failure) ([facility]) Cholelithiasis 2017 Diabetes mellitus ([facility]) Diverticulitis 2017 partial obstruction H/O CT scan 10/17/[address] evidence for acute intracranial pathology H/O CT scan 10/17/2021 CSpine No other fractures some spinous process abnormality on C6 History of being hospitalized 2010 CAD and Complications History of echocardiogram 2016 EF25-30% lv is mildly enlarged History of echocardiogram 2020 moderately to severely reduced left ventricular systolic function with wall mothtion anormalities, EF30% normal right ventricular systolic function , moderate diastolic dysfunction, mild to moderate mitral regurgitaion Hypertension ([facility]) MO (myocardial infarction) ([facility]) 2010 Medications: Current Outpatient Medications: amLODIPine (Norvasc) 5 MG tablet, Take 5 mg by mouth in the morning., Disp: , Rfl: aspirin (ASPIR) 81 MG EC tablet, 1 (one) time each day at the same time., Disp: , Rfl: baclofen (Lioresal) 10 MG tablet, TAKE 1 TABLET (10 MG) BY MOUTH 2 TIMES A DAY NEEDED FOR MUSCLESPASMS NEEDED, Disp: 180 tablet, Rfl: 1 carvedilol (Coreg) 25 MG tablet, every 12 (twelve) hours., Disp: , Rfl: Continuous Glucose Sensor (FreeStyle Shazia 2 Sensor) misc, Inject 1 each under the skin every 14 (fourteen) days, Disp: 6 each, Rfl: 3 diazePAM (Valium) 5 MG tablet, Take 1 tablet (5 mg) by mouth 1 (one) time each day at the same timePRN, Disp: 30 tablet, Rfl: 0 ezetimibe (Zetia) 10 MG tablet, Take 1 tablet (10 mg) by mouth Daily, Disp: 100 tablet, Rfl: 3 gabapentin (Neurontin) 600 MG tablet, Take 1 tablet (600 mg) by mouth in the morning and 1 tablet (600 mg) in the evening and 1 tablet (600 mg) before bedtime., Disp: 270 tablet, Rfl: 3 glucose blood test strip, 1 (one) time each day at the same time., Disp: , Rfl: ibuprofen 800 MG tablet, 2 (two) times a day PRN, Disp: , Rfl: insulin degludec (Tresiba FlexTouch) 200 UNIT/ML injection, Inject 56 Units under the skin at bedtime, Disp: 9 mL, Rfl: 5 Insulin Syringe-Needle U-100 (BD Veo Insulin Syringe U/F) 31G X 15/64 0.5 ML misc, Infuse 1 Deviceinto a venous catheter in the morning and 1 Device in the evening and 1 Device before bedtime., Disp: 300 each, Rfl: 3 Jardiance 25 MG, TAKE 1 TABLET BY MOUTH EVERY DAY IN THE MORNING, Disp: 30 tablet, Rfl: 11 lisinopril 40 MG tablet, Take 1 tablet by mouth in the morning., Disp: , Rfl: meclizine (Antivert) 25 MG tablet, 1 tablet as needed Orally every 4-6 hours as needed for 90 days,Disp: 30 tablet, Rfl: 1 NovoLOG 100 UNIT/ML solution, INJECT 30 UNITS UNDER THE SKIN BEFORE MEALS, Disp: 30 mL, Rfl: 3 omeprazole (PriLOSEC) [address] capsule, Take 1 capsule (20 mg) by mouth 1 (one) time each day at the same time, Disp: 100 capsule, Rfl: 3 rosuvastatin (Crestor) 20 MG tablet, 1 (one) time each day at the same time., Disp: , Rfl: sacubitril-valsartan (Entresto) 24-26 MG tablet, Take 1 tablet by mouth in the morning and 1 tabletin the evening., Disp: , Rfl: sulfamethoxazole-trimethoprim (Bactrim DS) 800-160 MG per tablet, Take 1 tablet by mouth in the morning and 1 tablet before bedtime. Do all this for 10 days. TAKE 1 PILL P.O. B.I.D. FOR 10 DAYS., Disp: 20 tablet, Rfl: 0 traMADol (Ultram) 50 MG tablet, Take 1 tablet (50 mg) by mouth every 6 (six) hours if needed for severe pain or moderate pain for up to 5 days, Disp: 20 tablet, Rfl: 0 Tuberculin Syringe ([employer] Tuberculin Safety Syr) 25G X 5/8 1 ML misc, USE DIRECTED, Disp: 100 each, Rfl: 4 ROS: Constitutional: Denies fever, chills, nausea, vomiting GI: Denies abdominal pain, cramping, loose stool, gastric ulcers Musculoskeletal: Denies low back pain, knee pain, systemic arthritis Neurologic: Denies burning, tingling, transient paralysis OBJECTIVE Physical examination: Vascular: Dorsalis pedis posterior tibial pulses are palpable bilateral, no edema noted Neuro: [place] 5.07 monofilament intact, vibratory sensation intact Derm: All hair growth noted skin temperature is warm to cool knees to toes Abscess noted at the plantar aspect of the left great toe 1st metatarsophalangeal joint. L Abscess has resolved wound still open to level muscle fascia measuring 1 cm x 0.5 cm resend cm deep no purulence noted. Distal aspectof the toe still has some mild drainage in his starting to become dark possible dysvascular. Musculoskeletal: Muscle strength +5/5 all intrinsic and extrinsic muscles tested XRAY: Reviewed Three views were taken today AP/MO/LAT foot: No fractures or dislocations seen No overt signs of osteomyelitis noted of the left great toe joint or proximal phalanx no gas noted in thesoft tissue ASSESSMENT 1. Acute osteomyelitis of ankle and foot, left ([facility]) 2. Type II diabetes mellitus with neurological manifestations ([facility]) 3. 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 PAD (peripheral artery disease) ([facility]) PLAN I educated the patient on the abscess of the left great toe 1st metatarsophalangeal joint. Radiographs reveal no gas noted in the soft tissue no overt signs of osteomyelitis. Continue wound was to the level muscle fascia. I debrided the wound to level of muscle fascia via sharp debridement to a granular type no rosa purulence was noted continue Bactrim DS coverage for 10 days. Patient was sent for an MRI as well as PVR testing to rule out osteomyelitis and peripheral arterial disease he was not wearing a surgical shoe today I reiterated the importance of offloading. He is to continue changing the dressing with Betadine to the site follow up with me after the MRI continue with his Bactrim DS. SUSANA Davis documented in this encounterWestern [facility] Medical [id number] NoteMicrobiology PROCEDURE: Wound Culture [R1] SOURCE: Wound BODY SITE: Toe COLLECTED DATE/TIME: 12/21/2023 10:20 EDT RECEIVED DATE/TIME: 12/21/2023 12:23 EDT START DATE/TIME: 12/21/2023 12:23 EDT FREE TEXT SOURCE: Left great toe Pavithra MEZA, Yonatan Rosado DPM, Yonatan Cerda FINAL REPORTS Final Report [] Verified Date/Time: 12/24/2023 10:54 EDT 2+ Methicillin-Resistant Staphylococcus aureus MRSA 2+ Peptostreptococcus species Presumptive 1+ Bacteroides species Presumptive STAINS Gram Stain Report [] Verified Date/Time: 12/22/2023 11:56 EDT 1+ White Blood Cells 1+ Gram Positive Cocci SUSCEPTIBILITY RESULTS LEGEND: S=Susceptible, N/R=Not Reported, Blank=Data not available, or drug not advisable or tested, I=Intermediate, ESBL=Extended spectrum beta-lactamase, R=Resistant, TFG=Thymidine-dependent strain, IVY=Beta-lactamase positive, EDNA=mcg/m;(mg/L), S*=Predicted susceptible interp, R*=Predicted resistant interp MRSA Antibiotic EDNA Dilutn EDNA Interp Amoxicillin/ >4/2 R* Clavulanate Ampicillin >8 R* Ampicillin/ <=8/4 R* Sulbactam Azithromycin >4 R Cefazolin >16 R* Ceftaroline 1 S Ciprofloxacin >2 R Clindamycin >2 R Daptomycin <=1 S Erythromycin >4 R Gentamicin <=4 S Levofloxacin >4 R Linezolid <=2 S Oxacillin >2 R Penicillin >8 R* Rifampin <=1 S Tetracycline <=4 S Trimethoprim/ <=0.5/9.5 S Sulfa Vancomycin 1 S Performing Locations R1: This test was performed at: [facility], [address] [place] [address], [address] , , SsuoufProtestant HospitalComment on above:Performed By: #### [id number] #### [facility] [address] [place] [address] [id number] History of Present illness Narrative* Yonatan Rosado DPM FACFAS - 12/23/2023 9:30 AM EDT Images from the original note were not included. Patient: Leida Hou : 1965 PCP: Nohemi Phoenix MD SUBJECTIVE This is a 58 y.o. male that presents today for a chief complaint of bscess plantar aspect of the right great toe has been present for 2 weeks but has developed an ulceration prior to that. He was seen by his primary care physician and placed on Bactrim DS empirically. He has a red hot swollen plantar aspect of the right great toe. He is a diabetic sugars have been running somewhat high according to the patient. He does deny fever chills nausea vomiting. Status post incision and drainage of the left great toe region currently on Bactrim DS. Wound is still with the level of muscle fascia. Lab Results Component Value Date HGBA1C 10.0 12/16/2023 Allergies: Allergies Allergen Reactions Atorvastatin Other Reaction(s): other Codeine Nausea Only Past Medical History: Past Medical History: Diagnosis Date Abnormal ankle brachial index (KUSH) 2020 KUSH normal, TBI is abnormal CHF (congestive heart failure) ([facility]) Cholelithiasis 2016 Diabetes mellitus ([facility]) Diverticulitis 2017 partial obstruction H/O CT scan 10/17/[address] evidence for acute intracranial pathology H/O CT scan 10/17/2021 CSpine No other fractures some spinous process abnormality on C6 History of being hospitalized 2010 CAD and Complications History of echocardiogram 2016 EF25-30% lv is mildly enlarged History of echocardiogram 2020 moderately to severely reduced left ventricular systolic function with wall mothtion anormalities, EF30% normal right ventricular systolic function , moderate diastolic dysfunction, mild to moderate mitral regurgitaion Hypertension ([facility]) MO (myocardial infarction) ([facility]) 2010 Medications: Current Outpatient Medications: amLODIPine (Norvasc) 5 MG tablet, Take 5 mg by mouth in the morning., Disp: , Rfl: aspirin (ASPIR) 81 MG EC tablet, 1 (one) time each day at the same time., Disp: , Rfl: baclofen (Lioresal) 10 MG tablet, TAKE 1 TABLET (10 MG) BY MOUTH 2 TIMES A DAY NEEDED FOR MUSCLESPASMS NEEDED, Disp: 180 tablet, Rfl: 1 carvedilol (Coreg) 25 MG tablet, every 12 (twelve) hours., Disp: , Rfl: Continuous Glucose Sensor (FreeStyle Shazia 2 Sensor) misc, Inject 1 each under the skin every 14 (fourteen) days, Disp: 6 each, Rfl: 3 diazePAM (Valium) 5 MG tablet, Take 1 tablet (5 mg) by mouth 1 (one) time each day at the same timePRN, Disp: 30 tablet, Rfl: 0 ezetimibe (Zetia) 10 MG tablet, Take 1 tablet (10 mg) by mouth Daily, Disp: 100 tablet, Rfl: 3 gabapentin (Neurontin) 600 MG tablet, Take 1 tablet (600 mg) by mouth in the morning and 1 tablet (600 mg) in the evening and 1 tablet (600 mg) before bedtime., Disp: 270 tablet, Rfl: 3 glucose blood test strip, 1 (one) time each day at the same time., Disp: , Rfl: ibuprofen 800 MG tablet, 2 (two) times a day PRN, Disp: , Rfl: insulin degludec (Tresiba FlexTouch) 200 UNIT/ML injection, Inject 56 Units under the skin at bedtime, Disp: 9 mL, Rfl: 5 Insulin Syringe-Needle U-100 (BD Veo Insulin Syringe U/F) 31G X 15/64 0.5 ML misc, Infuse 1 Deviceinto a venous catheter in the morning and 1 Device in the evening and 1 Device before bedtime., Disp: 300 each, Rfl: 3 Jardiance 25 MG, TAKE 1 TABLET BY MOUTH EVERY DAY IN THE MORNING, Disp: 30 tablet, Rfl: 11 lisinopril 40 MG tablet, Take 1 tablet by mouth in the morning., Disp: , Rfl: meclizine (Antivert) 25 MG tablet, 1 tablet as needed Orally every 4-6 hours as needed for 90 days,Disp: 30 tablet, Rfl: 1 NovoLOG 100 UNIT/ML solution, INJECT 30 UNITS UNDER THE SKIN BEFORE MEALS, Disp: 30 mL, Rfl: 3 omeprazole (PriLOSEC) [address] capsule, Take 1 capsule (20 mg) by mouth 1 (one) time each day at the same time, Disp: 100 capsule, Rfl: 3 rosuvastatin (Crestor) 20 MG tablet, 1 (one) time each day at the same time., Disp: , Rfl: sacubitril-valsartan (Entresto) 24-26 MG tablet, Take 1 tablet by mouth in the morning and 1 tabletin the evening., Disp: , Rfl: sulfamethoxazole-trimethoprim (Bactrim DS) 800-160 MG per tablet, Take 1 tablet by mouth in the morning and 1 tablet before bedtime. Do all this for 10 days., Disp: 20 tablet, Rfl: 0 sulfamethoxazole-trimethoprim (Bactrim DS) 800-160 MG per tablet, Take 1 tablet by mouth in the morning and 1 tablet before bedtime. Do all this for 10 days. TAKE 1 PILL P.O. B.I.D. FOR 10 DAYS., Disp: 20 tablet, Rfl: 0 traMADol (Ultram) 50 MG tablet, Take 1 tablet (50 mg) by mouth every 6 (six) hours if needed for severe pain or moderate pain for up to 5 days, Disp: 20 tablet, Rfl: 0 Tuberculin Syringe (Communication Specialist Limited Tuberculin Safety Syr) 25G X 5/8 1 ML misc, USE DIRECTED, Disp: 100 each, Rfl: 4 ROS: Constitutional: Denies fever, chills, nausea, vomiting GI: Denies abdominal pain, cramping, loose stool, gastric ulcers Musculoskeletal: Denies low back pain, knee pain, systemic arthritis Neurologic: Denies burning, tingling, transient paralysis OBJECTIVE Physical examination: Vascular: Dorsalis pedis posterior tibial pulses are palpable bilateral, no edema noted Neuro: [place] 5.07 monofilament intact, vibratory sensation intact Derm: All hair growth noted skin temperature is warm to cool knees to toes Abscess noted at the plantar aspect of the left great toe 1st metatarsophalangeal joint. L Abscess has resolved wound still open to level muscle fascia measuring 1 cm x 0.5 cm resend cm deep no purulence noted. Musculoskeletal: Muscle strength +5/5 all intrinsic and extrinsic muscles tested XRAY: Reviewed Three views were taken today AP/MO/LAT foot: No fractures or dislocations seen No overt signs of osteomyelitis noted of the left great toe joint or proximal phalanx no gas noted in thesoft tissue ASSESSMENT 1. Type 2 diabetes mellitus with diabetic autonomic neuropathy, with long-term current use of insulin ([facility]) 2. 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 Radiographs reveal no gas noted in the soft tissue no overt signs of osteomyelitis. Continue wound was to the level muscle fascia. I debrided the wound to level of muscle fascia via sharp debridement to a granular type no rosa purulence was noted I did extend his Bactrim DS coverage for 10 days. He is to continue with topical antibiotics Bactroban to the area. An offloading the area he did not wear his walking boot today. Against medical orders. I did recommend an MRI if not improved next visit to ruleout osteomyelitis I did dispense a prescription for tramadol 50 mg p.r.n. pain. Reiterated the importance of offloading SUSANA Davis documented in this encounterWestern Missouri Medical [id number] Evaluation + Plan note Diagnostic Tests Pending * Wound Culture 12/21/23 [facility] [id number] History of Present illness Narrative* SUSANA Davis - 12/21/2023 10:00 AM EDT Images from the original note were not included. Patient: Leida Hou : 1965 PCP: Nohemi Phoenix MD SUBJECTIVE This is a 58 y.o. male that presents today for a chief complaint of bscess plantar aspect of the right great toe has been present for 2 weeks but has developed an ulceration prior to that. He was seen by his primary care physician and placed on Bactrim DS empirically. He has a red hot swollen plantar aspect of the right great toe. He is a diabetic sugars have been running somewhat high according to the patient. He does deny fever chills nausea vomiting. Lab Results Component Value Date HGBA1C 10.0 12/16/2023 Allergies: Allergies Allergen Reactions Atorvastatin Other Reaction(s): other Codeine Nausea Only Past Medical History: Past Medical History: Diagnosis Date Abnormal ankle brachial index (KUSH) 2020 KUSH normal, TBI is abnormal CHF (congestive heart failure) ([facility]) Cholelithiasis 2017 Diabetes mellitus ([facility]) Diverticulitis 2017 partial obstruction H/O CT scan 10/17/[address] evidence for acute intracranial pathology H/O CT scan 10/17/2021 CSpine No other fractures some spinous process abnormality on C6 History of being hospitalized 2010 CAD and Complications History of echocardiogram 2016 EF25-30% lv is mildly enlarged History of echocardiogram 2020 moderately to severely reduced left ventricular systolic function with wall mothtion anormalities, EF30% normal right ventricular systolic function , moderate diastolic dysfunction, mild to moderate mitral regurgitaion Hypertension ([facility]) MO (myocardial infarction) ([facility]) 2010 Medications: Current Outpatient Medications: amLODIPine (Norvasc) 5 MG tablet, Take 5 mg by mouth in the morning., Disp: , Rfl: aspirin (ASPIR) 81 MG EC tablet, 1 (one) time each day at the same time., Disp: , Rfl: baclofen (Lioresal) 10 MG tablet, TAKE 1 TABLET (10 MG) BY MOUTH 2 TIMES A DAY NEEDED FOR MUSCLESPASMS NEEDED, Disp: 180 tablet, Rfl: 1 carvedilol (Coreg) 25 MG tablet, every 12 (twelve) hours., Disp: , Rfl: Continuous Glucose Sensor (FreeStyle Shazia 2 Sensor) misc, Inject 1 each under the skin every 14 (fourteen) days, Disp: 6 each, Rfl: 3 diazePAM (Valium) 5 MG tablet, Take 1 tablet (5 mg) by mouth 1 (one) time each day at the same timePRN, Disp: 30 tablet, Rfl: 0 ezetimibe (Zetia) 10 MG tablet, Take 1 tablet (10 mg) by mouth Daily, Disp: 100 tablet, Rfl: 3 gabapentin (Neurontin) 600 MG tablet, Take 1 tablet (600 mg) by mouth in the morning and 1 tablet (600 mg) in the evening and 1 tablet (600 mg) before bedtime., Disp: 270 tablet, Rfl: 3 glucose blood test strip, 1 (one) time each day at the same time., Disp: , Rfl: ibuprofen 800 MG tablet, 2 (two) times a day PRN, Disp: , Rfl: insulin degludec (Tresiba FlexTouch) 200 UNIT/ML injection, Inject 56 Units under the skin at bedtime, Disp: 9 mL, Rfl: 5 Insulin Syringe-Needle U-100 (BD Veo Insulin Syringe U/F) 31G X 15/64 0.5 ML misc, Infuse 1 Deviceinto a venous catheter in the morning and 1 Device in the evening and 1 Device before bedtime., Disp: 300 each, Rfl: 3 Jardiance 25 MG, TAKE 1 TABLET BY MOUTH EVERY DAY IN THE MORNING, Disp: 30 tablet, Rfl: 11 lisinopril 40 MG tablet, Take 1 tablet by mouth in the morning., Disp: , Rfl: meclizine (Antivert) 25 MG tablet, 1 tablet as needed Orally every 4-6 hours as needed for 90 days,Disp: 30 tablet, Rfl: 1 NovoLOG 100 UNIT/ML solution, INJECT 30 UNITS UNDER THE SKIN BEFORE MEALS, Disp: 30 mL, Rfl: 3 omeprazole (PriLOSEC) [address] capsule, Take 1 capsule (20 mg) by mouth 1 (one) time each day at the same time, Disp: 100 capsule, Rfl: 3 rosuvastatin (Crestor) 20 MG tablet, 1 (one) time each day at the same time., Disp: , Rfl: sacubitril-valsartan (Entresto) 24-26 MG tablet, Take 1 tablet by mouth in the morning and 1 tabletin the evening., Disp: , Rfl: sulfamethoxazole-trimethoprim (Bactrim DS) 800-160 MG per tablet, Take 1 tablet by mouth in the morning and 1 tablet before bedtime. Do all this for 10 days., Disp: 20 tablet, Rfl: 0 Tuberculin Syringe (Communication Specialist Limited Tuberculin Safety Syr) 25G X 5/8 1 ML misc, USE DIRECTED, Disp: 100 each, Rfl: 4 ROS: Constitutional: Denies fever, chills, nausea, vomiting GI: Denies abdominal pain, cramping, loose stool, gastric ulcers Musculoskeletal: Denies low back pain, knee pain, systemic arthritis Neurologic: Denies burning, tingling, transient paralysis OBJECTIVE Physical examination: Vascular: Dorsalis pedis posterior tibial pulses are palpable bilateral, no edema noted Neuro: [place] 5.07 monofilament intact, vibratory sensation intact Derm: All hair growth noted skin temperature is warm to cool knees to toes Abscess noted at the plantar aspect of the left great toe 1st metatarsophalangeal joint. Large fluid collection of the serosanguineous some mild purulence was noted upon incision and drainage there is significant swelling noted about the plantar aspect of the 1st metatarsal head with localized cellulitis is no ascending cellulitis or lymphangitis upon incision and drainage the wound did probe to the joint capsule. Musculoskeletal: Muscle strength +5/5 all intrinsic and extrinsic muscles tested XRAY: Three views were taken today AP/MO/LAT foot: No fractures or dislocations seen No overt signsof osteomyelitis noted of the left great toe joint or proximal phalanx no gas noted in the soft tissue ASSESSMENT 1. Type 2 diabetes mellitus with diabetic autonomic neuropathy, with long-term current use of insulin ([facility]) 2. Abscess of great toe of left foot 3. Cellulitis of left foot 4. 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 Contracture, ankle, left PLAN I educated the patient on the abscess of the left great toe 1st metatarsophalangeal joint. Radiographs reveal no gas noted in the soft tissue no overt signs of osteomyelitis. The patient is neuropathic and today I performed an incision and drainage of the sub 1st metatarsophalangeal joint plantar foot. Abscess toe is deep into the level of the muscular compartment Significant purulence and serosanguineous drainage was noted from the area. Cultures and sensitivities were taken the area was copiously lavaged with normal sterile saline I applied a dry sterile dressing with topical antibiotics. Dressing will be changed once again in 2 days and I did dispensed a pneumatic walking boot for the patient to begin ambulation and to offload the great toe joint. I explained to him my concern is the development of osteomyelitis in the patient may require an MRI if not improved in 2 days. He will follow up with me in 2 days for re-evaluation. Patient is to continue with the Bactrim DS as prescribedby his primary care physician Pending the results of his culture and sensitivity. Pneumatic Walking Boot (L4361) was dispensed and applied at this visit. Due to the patient's diagnosis and related symptoms this is medically necessary for treatment. The function of this device is to restrict and limit motion, provide stabilization, immobilization, and compression to the affected area. The goals and function-of this device were explained in detail to the patient. The patient wasshown and told in detail how to properly wear and care for the device. Written instructions and warranty information was given along with the list of the current Durable Medical Equipment Supplier Guidelines. SUSANA Davis documented in this encounterWestern Missouri Medical [id number] History of Present illness Narrative* Zenia Summers, MANISH - 12/16/2023 11:00 AM EDT Images from the original note were not included. Subjective Patient ID: Leida Hou is a 58 y.o. male who presents for infected toe and Diabetes. Leida is present today for follow up diabetes. Denies foot ulcers. Admits hypoglycemia a few times and tingling/numbness in extremities. Does check BS's at home running on average 200 - 250. Pt stateshe is trying to not eat as much sweets. Currently on Jardiance, Tresiba, Novolog. Did have some trouble getting his Tresiba at one point. States he is bad when it comes to sweets. Loves candy. Trying to eat more fruit. Has a spot on his right hand that has been there about a month. Doesn't seem to be going away. Denies injury that he can recall. Pt is also here for an infected toe, it is his left big toes redness started two days ago , the cuton the bottom of his toe been going on for a month Pt has been soaking In Epson salt Current Outpatient Medications on File Prior to Visit Medication Sig Dispense Refill amLODIPine (Norvasc) 5 MG tablet Take 5 mg by mouth in the morning. aspirin (ASPIR) 81 MG EC tablet 1 (one) time each day at the same time. baclofen (Lioresal) 10 MG tablet TAKE 1 TABLET (10 MG) BY MOUTH 2 TIMES A DAY NEEDED FOR MUSCLE SPASMS NEEDED 180 tablet 1 carvedilol (Coreg) 25 MG tablet every 12 (twelve) hours. Continuous Glucose Sensor (FreeStyle Shazia 2 Sensor) misc Inject 1 each under the skin every 14 (fourteen) days 6 each 3 diazePAM (Valium) 5 MG tablet Take 1 tablet (5 mg) by mouth 1 (one) time each day at the same time PRN 30 tablet 0 ezetimibe (Zetia) 10 MG tablet Take 1 tablet (10 mg) by mouth Daily 100 tablet 3 gabapentin (Neurontin) 300 MG capsule TAKE 1 CAPSULE BY MOUTH TWICE A DAY 180 capsule 1 glucose blood test strip 1 (one) time each day at the same time. ibuprofen 800 MG tablet 2 (two) times a day PRN insulin degludec (Tresiba FlexTouch) 200 UNIT/ML injection Inject 56 Units under the skin at bedtime 9 mL 5 Insulin Syringe-Needle U-100 (BD Veo Insulin Syringe U/F) 31G X 15/64 0.5 ML misc Infuse 1 Device into a venous catheter in the morning and 1 Device in the evening and 1 Device before bedtime. 300 each 3 Jardiance 25 MG TAKE 1 TABLET BY MOUTH EVERY DAY IN THE MORNING 30 tablet 11 lisinopril 40 MG tablet Take 1 tablet by mouth in the morning. meclizine (Antivert) 25 MG tablet 1 tablet as needed Orally every 4-6 hours as needed for 90 days 30 tablet 1 NovoLOG 100 UNIT/ML solution INJECT 30 UNITS UNDER THE SKIN BEFORE MEALS 30 mL 3 omeprazole (PriLOSEC) [address] capsule Take 1 capsule (20 mg) by mouth 1 (one) time each day at thesame time 100 capsule 3 rosuvastatin (Crestor) 20 MG tablet 1 (one) time each day at the same time. sacubitril-valsartan (Entresto) 24-26 MG tablet Take 1 tablet by mouth in the morning and 1 tablet in the evening. Tuberculin Syringe (Communication Specialist Limited Tuberculin Safety Syr) 25G X 5/8 1 ML misc USE DIRECTED 100 each 4 [DISCONTINUED] gabapentin (Neurontin) 300 MG capsule 1 capsule every 12 (twelve) hours PRN No current facility-administered medications on file prior to visit. I have reviewed and reconciled the history and medication list with the patient today. Allergies Allergen Reactions Atorvastatin Other Reaction(s): other Codeine Nausea Only Social History Tobacco Use Smoking status: Never Smokeless tobacco: Current Types: Chew Substance Use Topics Alcohol use: Not Currently Drug use: Yes Types: Hydrocodone Family History Problem Relation Name Age of Onset Heart disease Mother Heart disease Father Past Medical History: Diagnosis Date Abnormal ankle brachial index (KUSH) 2020 KUSH normal, TBI is abnormal CHF (congestive heart failure) (CMS/HCC) Cholelithiasis 2017 Diabetes mellitus (CMS/HCC) Diverticulitis 2017 partial obstruction H/O CT scan 10/17/[address] evidence for acute intracranial pathology H/O CT scan 10/17/2021 CSpine No other fractures some spinous process abnormality on C6 History of being hospitalized 2010 CAD and Complications History of echocardiogram 2016 EF25-30% lv is mildly enlarged History of echocardiogram 2020 moderately to severely reduced left ventricular systolic function with wall mothtion anormalities, EF30% normal right ventricular systolic function , moderate diastolic dysfunction, mild to moderate mitral regurgitaion Hypertension (CMS/HCC) MO (myocardial infarction) (CMS/HCC) 2010 Past Surgical History: Procedure Laterality Date ABCESS DRAINAGE 2010 on colon CARDIAC SURGERY 2010 06 bypass CARDIAC SURGERY 2020 right heart catheterization b/l angiography, severe 3 vessel cad with occlusion papent 4/5 bypass grafts(papent carrero to diagonal 2, patent svg to diagonal1, patent radial graft to om1, patent svg to the pda CATARACT EXTRACTION, BILATERAL [address] cortez diverticulosis scar tissue COLONOSCOPY 2016 dr solomon some polyps INSERT / REPLACE / REMOVE PACEMAKER 2011 2019single chamber ICD replacement due to battery depletion OTHER SURGICAL HISTORY 08/30/2019 Single chamber ICD replacement due to battery depletion Visit Vitals Smoking Status Never Review of Systems Constitutional: Negative. HENT: Negative. Eyes: Negative. Respiratory: Negative. Cardiovascular: Negative. Gastrointestinal: Negative. Genitourinary: Negative. Musculoskeletal: Negative. Skin: Infected rt great toe with extreme erythema. Pt also noted to have callus on his great toe that he has been cutting on with a knife and nail clippers. Neurological: Negative. Psychiatric/Behavioral: Negative. Objective Physical Exam Vitals reviewed. Constitutional: Appearance: Normal appearance. HENT: Head: Normocephalic. Mouth/Throat: Mouth: Mucous membranes are moist. Pharynx: Oropharynx is clear. Eyes: Conjunctiva/sclera: Conjunctivae normal. Cardiovascular: Rate and Rhythm: Normal rate. Pulmonary: Effort: Pulmonary effort is normal. Skin: General: Skin is warm and dry. Findings: Erythema present. Comments: Rt great toe with erythema and callus present Neurological: General: No focal deficit present. Mental Status: He is alert and oriented to person, place, and time. Psychiatric: Mood and Affect: Mood normal. Behavior: Behavior normal. Assessment/Plan Diagnoses and all orders for this visit: Callus - Ambulatory referral to Podiatry; Future Do not cut your callus or use nail clippers on it. You are a diabetic and you are at risk for delayed healing and infection. You will see podiatry. Type 2 diabetes mellitus with diabetic autonomic neuropathy, with long-term current use of insulin ([facility]) - POCT Glycated hemoglobin, total - Ambulatory referral to Podiatry; Future Uncontrolled DM at this time. A1C 10. Pt wants to manage with diet. We discussed today, the importance of proper diabetic control. We discussed possible complications of diabetes, including loss of vision, renal failure, increased risk of heart attacks and strokes, blood vessel and/or nerve damage.We discussed the recommended changes to reduce your blood sugars and minimize the risk of these complications. We discussed diabetic goals, including keeping A1C <7.0% and blood pressure < 130/70. The plan for achieving these goals is adherence to medications, diet, and regular activity as discussed during today's visit. We discussed current barriers to achieving these goals. We discussed dietary goals. We discussed calorie counting, as well as decreasing carbohydrate and simple sugar intake. Reviewed portion control with the patient. If the patient still has questions on this, a referral to a Dietitian can be arranged. I reviewed medications that aid in diabetic control. We discussedproper dosing and educated the patient on possible side effects and complications. The patient verbalized understanding of these instructions. Toe infection - Ambulatory referral to Podiatry; Future - sulfamethoxazole-trimethoprim (Bactrim DS) 800-160 MG per tablet; Take 1 tablet by mouth in the morning and 1 tablet before bedtime. Do all this for 10 days. Take ATB as ordered. Do not stop if it looks better. Referral has been made to podiatry. Diabetic polyneuropathy associated with type 2 diabetes mellitus (CMS/HCC) - gabapentin (Neurontin) 600 MG tablet; Take 1 tablet (600 mg) by mouth in the morning and 1 tablet(600 mg) in the evening and 1 tablet (600 mg) before bedtime. Neurontin was increased. He has been taking 600mg BID but it is not holding him through the day. Will have pt take 1/2 tab in the after for 3 days and then increase to 600mg. He verbalized understanding. Thrombocytopenia, unspecified (CMS/HCC) This is a chronic medical condition that is stable since last assessment. No changes in treatment are suggested at this time. Type 2 diabetes mellitus with hyperglycemia (CMS/HCC) We discussed today, the importance of proper diabetic control. We discussed possible complications of diabetes, including loss of vision, renal failure, increased risk of heart attacks and strokes, blood vessel and/or nerve damage. We discussed the recommended changes to reduce your blood sugars and minimize the risk of these complications. We discussed diabetic goals, including keeping A1C <7.0% and blood pressure < 130/70. The plan for achieving these goals is adherence to medications, diet, and regular activity as discussed during today's visit. We discussed current barriers to achieving these goals. We discussed dietary goals. We discussed calorie counting, as well as decreasing carbohydrate and simple sugar intake. Reviewed portion control with the patient. If the patient stillhas questions on this, a referral to a Dietitian can be arranged. I reviewed medications that aid in diabetic control. We discussed proper dosing and educated the patient on possible side effects andcomplications. The patient verbalized understanding of these instructions. Immunodeficiency due to conditions classified elsewhere (CMS/HCC) This is a chronic medical condition that is stable since last assessment. No changes in treatment are suggested at this time. No follow-ups on file. documented in this encounterWestern Missouri Medical [id number] NoteUTP [facility]iologyOhio[facility] Subjective Leida Hou is a 58 y.o. year old male patient being seen for 4 mo follow up CAD, systolic heart failure, hypertension, and hx of MV repair. Had lab work this morning. His device was interrogated in July 2023. He's been out of [employer] for a few weeks and says his insurance won't pay for it. (He is commercially insured, therefore co-pay card was given to him in the office today.) He was also out of [employer] for awhile but is back on it. Not taking Zetia, but is taking amlodipine. Patient Active Problem List Diagnosis Abdominal pain Abscess of peritoneum (CMS/HCC) Calculus of gallbladder with cholecystitis Cardiac pacemaker in situ Claudication (CMS/HCC) Conduction disorder of the heart Constipation Deviated septum Diabetic neuropathy (CMS/HCC) Diverticulitis of sigmoid colon Epigastric pain Benign hypertensive cardiomyopathy with heart failure (CMS/HCC) Fluid level behind tympanic membrane of left ear Gastroesophageal reflux disease Generalized ischemic myocardial dysfunction Hypertriglyceridemia Implantable cardioverter-defibrillator (ICD) in situ Lipoprotein deficiency disorder Microalbuminuria Mitral valve disorder Seasonal allergies Type 2 diabetes mellitus without complication (CMS/HCC) Thrombocytopenia (CMS/HCC) Systolic heart failure (CMS/HCC) Ventricular tachycardia (CMS/HCC) Coronary artery disease involving coronary bypass graft of grayling heart without angina pectoris Tobacco dependence due to chewing tobacco History of mitral valve repair ED (erectile dysfunction) of organic origin Hypertension associated with type 2 diabetes mellitus (CMS/HCC) Insomnia Poorly controlled diabetes mellitus (CMS/HCC) Seasonal allergic rhinitis Autonomic neuropathy due to type 2 diabetes mellitus (CMS/HCC) Family History Family history unknown: Yes Social History Tobacco Use Smoking status: Former Types: Cigarettes Smokeless tobacco: Former Types: Chew Substance Use Topics Alcohol use: Not Currently Comment: says he quit drinking in 2021 HPI Mr Hou is here for follow up. He is a 58-year-old man. He has ischemic cardiomyopathy status post bypass and mitral valve repair in October of 2011. He underwent a single chamber ICD implantation on 12/01/2012. He underwent generator change in August 2019. He had a laparoscopic partial colectomy in 2017. He has diabetes and has issues with control. His HbA1c was 11.1% in 03/2020, His recent HbA1c was 9.3 on 04/14/2022. On 08/08/2020 he had 2 bursts of ATP for ventricular tachycardia. Those were picked up on device home monitor. In September 2020 he was found to have ventricular tachycardia that required ATP. I proceeded with cardiac catheterization on 10/18/2020 and this showed CAD appropriate for medical therapy. In the past he was having significant claudication with cramping in both calves on walking. He reports that these have been improving. ABIs were done that showed calcific vessels. I checked lower extremity duplex arterial ultrasound in September 2020 and this did not show focal stenosis. Today he is seen in follow-up. He has been doing well from the cardiovascular standpoint. He has no angina. He has dyspnea on exertion, NYHA class II. No leg swelling. He has not been taking ezetimibe for unclear reason. He also ran out of Triggertrap and is working with insurance obtaining it. Review of Systems Constitutional: Positive for malaise/fatigue. HENT: Negative. Cardiovascular: Positive for dyspnea on exertion. Neurological: Positive for numbness. Objective Visit Vitals BP 130/78 (BP Location: Left arm, Patient Position: Sitting) Pulse 85 Ht 1.88 m (6' 2 ) Wt 89.4 kg (197 lb) SpO2 97% BMI 25.29 kg/m??? Smoking Status Former BSA 2.16 m??? Physical Exam Constitutional: Appearance: He is well-developed. He is not ill-appearing. HENT: Head: Normocephalic and atraumatic. Nose: Nose normal. Eyes: General: No scleral icterus. Pupils: Pupils are equal, round, and reactive to light. Neck: Thyroid: No thyromegaly. Vascular: No JVD. Cardiovascular: Rate and Rhythm: Normal rate and regular rhythm. Pulses: Radial pulses are 2+ on the right side and 0 on the left side. Heart sounds: Normal heart sounds. No murmur heard. No friction rub. No gallop. Pulmonary: Effort: Pulmonary effort is normal. No respiratory distress. Breath sounds: Normal breath sounds. No wheezing or rales. Chest: Chest wall: No tenderness. Abdominal: General: Bowel sounds are normal. There is no distension. Palpations: Abdomen is soft. Tenderness: There is no abdominal tenderness. Musculoskeletal: General: No swelling. Cervical back: Neck supple. Skin: General: Skin is warm and dry. Neurological: General: No focal deficit present. Mental Status: He is alert and oriented to person, place, and time. Psychiatric: Mood and A (more content not included)...[facility] Evaluation note* Diagnosis Hypertension associated with type 2 diabetes mellitus (HCC) ([facility])- Primary Type 2 diabetes mellitus with diabetic autonomic neuropathy, with long-term current use of insulin ([facility]) Primary insomnia Persistent disorder of initiating or maintaining sleep Callus- Primary Corns and callosities Type 2 diabetes mellitus with diabetic autonomic neuropathy, with long-term current use of insulin ([facility]) Toe infection Diabetic polyneuropathy associated with type 2 diabetes mellitus ([facility]) Thrombocytopenia, unspecified ([facility]) Thrombocytopenia, unspecified Type 2 diabetes mellitus with hyperglycemia ([facility]) Immunodeficiency due to conditions classified elsewhere ([facility]) [facility]* Diagnosis Hypertension associated with type 2 diabetes mellitus (HCC) ([facility])- Primary Type 2 diabetes mellitus with diabetic autonomic neuropathy, with long-term current use of insulin ([facility]) Primary insomnia Persistent disorder of initiating or maintaining sleep Type 2 diabetes mellitus with diabetic autonomic neuropathy, with long-term current use of insulin ([facility])- Primary Abscess of great toe of left foot Cellulitis of left foot 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, left ([facility]) Contracture, ankle, left documented in [facility]* Diagnosis Hypertension associated with type 2 diabetes mellitus (HCC) ([facility])- Primary Type 2 diabetes mellitus with diabetic autonomic neuropathy, with long-term current use of insulin ([facility]) Primary insomnia Persistent disorder of initiating or maintaining sleep Type 2 diabetes mellitus with diabetic autonomic neuropathy, with long-term current use of insulin ([facility]/HCC)- Primary 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, left ([facility]/HCC) [facility]* Diagnosis Hypertension associated with type 2 diabetes mellitus (HCC) ([facility])- Primary Type 2 diabetes mellitus with diabetic autonomic neuropathy, with long-term current use of insulin ([facility]) Primary insomnia Persistent disorder of initiating or maintaining sleep Acute osteomyelitis of ankle and foot, left ([facility]/HCC)- Primary Type II diabetes mellitus with neurological manifestations ([facility]) Type II or unspecified type diabetes mellitus with neurological manifestations, not stated as uncontrolled 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, left ([facility]/HCC) PAD (peripheral artery disease) ([facility]) Unspecified peripheral vascular disease documented in [facility] noteNo assessment information availablePaulding [facility] Work Phone: Evaluation note* Diagnosis Hypertension associated with type 2 diabetes mellitus (HCC) ([facility])- Primary Type 2 diabetes mellitus with diabetic autonomic neuropathy, with long-term current use of insulin ([facility]) Primary insomnia Persistent disorder of initiating or maintaining sleep PAD (peripheral artery disease) ([facility]/HCC)- Primary Unspecified peripheral vascular disease 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, left ([facility]) Gangrene ([facility]) Gangrene documented in [facility]* Diagnosis Hypertension associated with type 2 diabetes mellitus (HCC) ([facility]/HCC)- Primary Type 2 diabetes mellitus with diabetic autonomic neuropathy, with long-term current use of insulin ([facility]) Primary insomnia Persistent disorder of initiating or maintaining sleep Gangrene ([facility]/HCC)- Primary Gangrene PAD (peripheral artery disease) ([facility]) Unspecified peripheral vascular disease documented in this encounter [facility]* Diagnosis Hypertension associated with type 2 diabetes mellitus (HCC) ([facility]/HCC)- Primary Type 2 diabetes mellitus with diabetic autonomic neuropathy, with long-term current use of insulin ([facility]) Primary insomnia Persistent disorder of initiating or maintaining sleep Gangrene ([facility]/HCC)- Primary Gangrene PAD (peripheral artery disease) ([facility]) Unspecified peripheral vascular disease documented in [facility] encounter [facility]* Diagnosis Hypertension associated with type 2 diabetes mellitus (HCC) ([facility]/HCC)- Primary Type 2 diabetes mellitus with diabetic autonomic neuropathy, with long-term current use of insulin ([facility]) Primary insomnia Persistent disorder of initiating or maintaining sleep PAD (peripheral artery disease) ([facility])- Primary Unspecified peripheral vascular disease Gangrene ([facility]) Gangrene documented [facility]* Diagnosis Hypertension associated with type 2 diabetes mellitus (HCC) ([facility])- Primary Type 2 diabetes mellitus with diabetic autonomic neuropathy, with long-term current use of insulin ([facility]) Primary insomnia Persistent disorder of initiating or maintaining sleep PAD (peripheral artery disease) ([facility])- Primary Unspecified peripheral vascular disease Gangrene ([facility]) Gangrene documented in this encounter [facility]* Diagnosis Hypertension associated with type 2 diabetes mellitus (HCC) ([facility])- Primary Type 2 diabetes mellitus with diabetic autonomic neuropathy, with long-term current use of insulin ([facility]) Primary insomnia Persistent disorder of initiating or maintaining sleep Type II diabetes mellitus with neurological manifestations ([facility])- Primary Type II or unspecified type diabetes mellitus with neurological manifestations, not stated as uncontrolled PAD (peripheral artery disease) ([facility]) Unspecified peripheral vascular disease Gangrene ([facility]) Gangrene 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, left ([facility]) documented in this encounter [facility]* Diagnosis Hypertension associated with type 2 diabetes mellitus (HCC) ([facility])- Primary Type 2 diabetes mellitus with diabetic autonomic neuropathy, with long-term current use of insulin ([facility]) Primary insomnia Persistent disorder of initiating or maintaining sleep Type II diabetes mellitus with neurological manifestations ([facility])- Primary Type II or unspecified type diabetes mellitus with neurological manifestations, not stated as uncontrolled PAD (peripheral artery disease) ([facility]) Unspecified peripheral vascular disease Gangrene ([facility]) Gangrene Acute osteomyelitis of ankle and foot, left ([facility]) documented [facility]* Diagnosis Hypertension associated with type 2 diabetes mellitus (HCC) ([facility])- Primary Type 2 diabetes mellitus with diabetic autonomic neuropathy, with long-term current use of insulin ([facility]) Primary insomnia Persistent disorder of initiating or maintaining sleep Type II diabetes mellitus with neurological manifestations ([facility]/HCC)- Primary Type II or unspecified type diabetes mellitus with neurological manifestations, not stated as uncontrolled PAD (peripheral artery disease) ([facility]) Unspecified peripheral vascular disease Gangrene ([facility]) Gangrene Acute osteomyelitis of ankle and foot, left ([facility]) documented in [facility]* Diagnosis Hypertension associated with type 2 diabetes mellitus (HCC) ([facility])- Primary Type 2 diabetes mellitus with diabetic autonomic neuropathy, with long-term current use of insulin ([facility]) Primary insomnia Persistent disorder of initiating or maintaining sleep PAD (peripheral artery disease) ([facility])- Primary Unspecified peripheral vascular disease Gangrene ([facility]) Gangrene Type II diabetes mellitus with neurological manifestations ([facility]) Type II or unspecified type diabetes mellitus with neurological manifestations, not stated as uncontrolled Chronic ulcer of great toe of left foot with fat layer exposed ([facility]) documented in this encounter [facility]* Diagnosis Hypertension associated with type 2 diabetes mellitus (HCC) ([facility])- Primary Type 2 diabetes mellitus with diabetic autonomic neuropathy, with long-term current use of insulin ([facility]) Primary insomnia Persistent disorder of initiating or maintaining sleep PAD (peripheral artery disease) ([facility])- Primary Unspecified peripheral vascular disease Gangrene ([facility]) Gangrene documented in this encounter [facility]* Diagnosis Hypertension associated with type 2 diabetes mellitus (HCC) ([facility])- Primary Type 2 diabetes mellitus with diabetic autonomic neuropathy, with long-term current use of insulin ([facility]) Primary insomnia Persistent disorder of initiating or maintaining sleep Type II diabetes mellitus with neurological manifestations ([facility])- Primary Type II or unspecified type diabetes mellitus with neurological manifestations, not stated as uncontrolled Amputation of left great toe ([facility]) Gastrocnemius equinus of left lower extremity Gastrocnemius equinus of right lower extremity documented in this encounter [facility]* Diagnosis Hypertension associated with type 2 diabetes mellitus (HCC) ([facility])- Primary Type 2 diabetes mellitus with diabetic autonomic neuropathy, with long-term current use of insulin ([facility]) Primary insomnia Persistent disorder of initiating or maintaining sleep Type II diabetes mellitus with neurological manifestations ([facility])- Primary Type II or unspecified type diabetes mellitus with neurological manifestations, not stated as uncontrolled Amputation of left great toe ([facility]) documented in this encounter [facility]* Diagnosis Hypertension associated with type 2 diabetes mellitus (HCC) ([facility])- Primary Type 2 diabetes mellitus with diabetic autonomic neuropathy, with long-term current use of insulin ([facility]) Primary insomnia Persistent disorder of initiating or maintaining sleep Acute bronchitis, unspecified organism- Primary Acute cough Hypertensive heart disease with heart failure ([facility]) Unspecified hypertensive heart disease with heart failure Gangrene, not elsewhere classified ([facility]) Type 2 diabetes mellitus with foot ulcer (CODE) ([facility]) Non-pressure chronic ulcer 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 ([facility]) Ventricular tachycardia, unspecified ([facility]) Unspecified systolic (congestive) heart failure ([facility]) Heart failure, unspecified ([facility]) Heart failure, unspecified Chronic systolic (congestive) heart failure ([facility]) documented in this encounter [facility]* Diagnosis Hypertension associated with type 2 diabetes mellitus (HCC) ([facility])- Primary Type 2 diabetes mellitus with diabetic autonomic neuropathy, with long-term current use of insulin ([facility]) Primary insomnia Persistent disorder of initiating or maintaining sleep Type 2 diabetes mellitus with diabetic autonomic neuropathy, with long-term current use of insulin ([facility])- Primary Type 2 diabetes mellitus with foot ulcer (CODE) ([facility]) Primary insomnia Persistent disorder of initiating or maintaining sleep documented in this encounter [facility]* Diagnosis Hypertension associated with type 2 diabetes mellitus (HCC)- Primary Type 2 diabetes mellitus with diabetic autonomic neuropathy, with long-term current use of insulin ([facility]) Primary insomnia Persistent disorder of initiating or maintaining sleep Type 2 diabetes mellitus with diabetic autonomic neuropathy, with long-term current use of insulin ([facility])- Primary Type 2 diabetes mellitus with foot ulcer (CODE) ([facility]) Primary insomnia Persistent disorder of initiating or maintaining sleep Muscle spasm of back- Primary Intercostal pain documented in this encounter [facility] Narrative No data available for this section [facility] Discharge instructions No data available for this section [facility] Discharge instructions Additional Instructions DISCHARGE INSTRUCTIONS FOR ANGIOGRAM, ANGIOPLASTY, STENT PLACEMENT: FIRST TWO (2) DAYS AFTER DISCHARGE: -Take it easy at home, no strenuous activity. -Do not lift or pull objects over 10 pounds, including children and groceries (10 pounds = 1 gallon milk). -May shower. -Able to go upstairs -No excessive scrubbing of affected groin or arm. -May drive car unless you had sedation for the procedure, then you cannot drive for [address] Fields: (office) [phone] -If excessive bleeding should occur from the puncture site, immediately apply pressure to the site and call 911. -Report any fever, redness, drainage, increased swelling, or firmness at catheter site insertion. Some bruising or slight swelling may be present and this is normal. -Should the arm or leg become cold, numb, white, or blue - go to the nearest emergency room. MEDICATIONS -Follow instructions on the discharge medication sheet regarding your medications. -[Do NOT take any Metformin containing medications for the next two days: ActoPlusMet, ActoPlusMet XR, Avandamet, Fortamet, Glucophage, Glucophage XR, Glucovance, Glumetza, Janumet, Janumet XR, Jentadueto, Kombiglyze XR, Metaglip, Metformin, PrandiMet, Riomet.] [facility] Work Phone: Progress note No data available for this section [facility] Summary Purpose Family History No Family History Records FoundNo Family History Records FoundNo Family History Records FoundNo Family History Records Found No data available for this section No Family History Records Found No data available for this section No Family History Records FoundNo Family History Records FoundNo Family History Records FoundNo Family History Records FoundNo Family History Records Found Advance Directives No Advanced Directives Records Found Advance Directive Response Recorded Date/ Time Advance Directives No August 31 9:45am Chief Complaint and Reason for Visit Chief Complaint Admit Date REF BY DR. ROSADO FOR POSS GANGRENE Novem 2023 11:25am Chief Complaint Admit Date REF BY DR. ROSADO FOR POSS GANGRENE Novem 2023 11:25am left great toe gangrene. January 07, 2024 6:40am left great toe gangrene. January 07, 2024 9:13am Reason for Visit Admit Date Gangrene associated with diabetes [facility] January 06, 2024 11:25am Additional Source Comments (unrecognized sect ion and content) No Status Records FoundNo Status Records FoundNo Status Records FoundNo Status Records FoundNo Status Records FoundNo Status Records FoundNo Status Records FoundNo Status Records FoundNo Status Records Found INFORMATION SOURCE (unrecogn ized section and content) DATE CREATED AUTHOR 08/17/2017 [facility] DATE CREATED AUTHOR AUTHOR'S ORGANIZ ATION 08/17/2017 [facility] DATE CREATED AUTHOR AUTHOR'S ORGANIZ ATION 10/23/2020 [facility] DATE CREATED AUTHOR AUTHOR'S ORGANIZ ATION 10/21/2021 [facility] DATE CREATED AUTHOR AUTHOR'S ORGANIZ ATION 12/22/2023 [place] [facility] DATE CREATED AUTHOR AUTHOR'S ORGANIZ ATION 01/24/2024 [facility] [place] [facility] ical Center DATE CREATED AUTHOR AUTHOR'S ORGANIZ ATION 01/28/20[address] [facility] [place] [facility] ical Center DATE CREATED AUTHOR AUTHOR'S ORGANIZ ATION 02/02/2024 [facility] DATE CREATED AUTHOR AUTHOR'S ORGANIZ ATION 09/23/2024 [facility] DATE CREATED AUTHOR AUTHOR'S ORGANIZ ATION 10/06/2024 [facility] d[facility] [employer] Care Teams (unrecognized sec tion and content) Rn Lactation Consultant Relationship Specialty Start Date End Date Nohemi Phoenix MD [address] [id number] PCP - [place] [employer] 06/23/21 Nohemi Phoenix MD [address] [id number] PCP - General Family Medicine 09/22/22 Rn Lactation Consultant Relationship Specialty Start Date End Date Nohemi Phoenix MD [address] [address] PCP - [place] Commercial 06/23/21 Nohemi Phoenix MD [address] [place] [address] PCP - General Family Medicine 09/22/22 Rn Lactation Consultant Relationship Specialty Start Date End Date Nohemi Phoenix MD [address] [place] [address] PCP - [facility] [employer] 06/23/21 Nohemi Phoenix MD [address] [place] [address] PCP - General Family Medicine 09/22/22 Rn Lactation Consultant Relationship Specialty Start Date End Date Nohemi Phoenix MD [address] [place] [address] PCP - [facility] [employer] 06/23/21 Nohemi Phoenix MD [address] [place] [address] PCP - General Family Medicine 09/22/22 Rn Lactation Consultant Relationship Specialty Start Date End Date Nohemi Phoenix MD [address] [place] [address] PCP - [facility] [employer] 06/23/21 Nohemi Phoenix MD [address] [place] [address] PCP - General Family Medicine 09/22/22 Rn Lactation Consultant Relationship Specialty Start Date End Date Nohemi Phoenix MD [address] [place] [address] PCP - [facility] [employer] 06/23/21 Nohemi Phoenix MD [address] [place] [address] PCP - General [facility] Medicine 09/22/22 Rn Lactation Consultant Relationship Specialty Start Date End Date Nohemi Phoenix MD [address] [place] [address] PCP - [facility] [employer] 06/23/21 Nohemi Phoenix MD [address] [place] [address] PCP - [facility] 09/22/22 Rn Lactation Consultant Relationship Specialty Start Date End Date Nohemi Phoenix MD [address] [place] [address] PCP - [facility] [employer] 06/23/21 Nohemi Phoenix MD [address] [place] [address] PCP - [facility] Medicine 09/22/22 Team Status: Active Member Role Status Dates Nohemi Phoenix MD Primary Care Provider Active Team Status: Inactive Member Role Status Dates Artur Fields MD Attending Provider Active Start: January 06, 2024 End: January 06, 2024 Nohemi Phoenix MD Primary Care Provider Active S tart: January 06, 2024 End: January 06, 2024 Team Status: Inactive Member Role Status Dates Nohemi Phoenix MD Primary Care Provider Active S tart: January 07, 2024 End: January 07, 2024 Artur Fields MD Attending Provider Active Start: January 07, 2024 End: January 07, 2024 Team Status: Active Member Role Status Dates Nohemi Phoenix MD Primary Care Provider Active S tart: January 07, 2024 Artur Fields MD Attending Prov ider, Other Provider Active Start: January 07, 2024 Rn Lactation Consultant Relationship Specialty Start Date End Date Nohemi Phoenix MD [address] [place] [address] PCP - [facility] [employer] 06/23/21 Nhoemi Phoenix MD [address] [place] [address] PCP - General Family Medicine 09/22/22 Rn Lactation Consultant Relationship Specialty Start Date End Date Nohemi Phoenix MD [address] [place] [address] PCP - [facility] [employer] 06/23/21 Nohemi Phoenix MD [address] [place] [address] PCP - General Family Medicine 09/22/22 Rn Lactation Consultant Relationship Specialty Start Date End Date Nohemi Phoenix MD [address] [place] [address] PCP - [facility] [employer] 06/23/21 Nohemi Phoenix MD [address] [place] [address] PCP - General Family Medicine 09/22/22 Rn Lactation Consultant Relationship Specialty Start Date End Date Nohemi Phoenix MD [address] [place] [address] PCP - [facility] [employer] 06/23/21 Nohemi Phoenix MD [address] [place] [address] PCP - General Family Medicine 09/22/22 Rn Lactation Consultant Relationship Specialty Start Date End Date Nohemi Phoenix MD [address] [place] [address] PCP - [facility] [employer] 06/23/21 Nohemi Phoenix MD [address] [place] [address] PCP - General Family Medicine 09/22/22 Rn Lactation Consultant Relationship Specialty Start Date End Date Nohemi Pohenix MD [address] [place] [address] PCP - [facility] [employer] 06/23/21 Nohemi Phoenix MD [address] [place] [address] PCP - General Family Medicine 09/22/22 Rn Lactation Consultant Relationship Specialty Start Date End Date Nohemi Phoenix MD [address] [place] [address] PCP - [facility] [employer] 06/23/21 Nohemi Phoenix MD [address] [place] [address] PCP - General Family Medicine 09/22/22 Rn Lactation Consultant Relationship Specialty Start Date End Date Nohemi Phoenix MD [address] [place] [address] PCP - General Family Medicine 09/22/22 Rn Lactation Consultant Relationship Specialty Start Date End Date Nohemi Phoenix MD [address] [place] [address] PCP - General Family Medicine 09/22/22 Nohemi Phoenix MD [address] [place] [address] PCP - [facility] 06/23/24 Rn Lactation Consultant Relationship Specialty Start Date End Date Nohemi Phoenix MD [address] [address] PCP - General Family Medicine 09/22/22 Nohemi Phoenix MD [address] [address] PCP - [facility] 06/23/24 Reason for Visit (unrecogniz ed section and content) Reason Comments infected toe Diabetes Reason Comments Foot Wound Check LT grt toe infection with wound, swollen Specialty Diagnoses / Procedures Referred By Sylvie t Referred To Contact Podiatry Diagnoses Type 2 diabetes mellitus with diabetic autonomic neuropathy, with long-term current use of insulin ([facility]) Callus Toe infection Procedures [place] OFFICE/OUTPATIENT NEW HIGH MDM 60 MINUTES Zenia Summers NP [address] [address] Phone: tel: fax: Milton Gallagher DPM [address] [address] Phone: tel: fax: Referral ID Status Reason Start Date Expiration Date V isits Requested Visits Authorized [id number] Closed Specialty Services Required 12/16/2023 06/13/2024 1 1 Reason Comments Foot Wound Check F/U LT grt toe ulcer Reason Comments Foot Wound Check F/U LT foot grt toe wound Reason Comments Foot Wound Check F/U LT grt toe ulcer Follow-up F/U CT / PVR LT foot Reason Comments Foot Wound Check F/U LT grt toe ulcer Reason Comments Foot Wound Check LT grt toe wound Reason Comments Foot/ankle Post-op WK 1 post op Reason Comments Foot/ankle Post-op WK 2 post op Reason Comments Foot/ankle Post-op WK 3 post op - Sutur es were removed this morning and now has a small opening Reason Comments Foot/ankle Post-op Post op - open site Reason Comments Foot/ankle Post-op WK 4 post op Foot Orthotics P/U Orthotics Reason Comments Foot/ankle Post-op Week 6 post op Foot Orthotics Fu orthotics Reason Comments Diabetes A1c today is 11.0 Goals (unrecognized section and content) Goals may be documented in a n alternate section FOR RECORDS PERTAINING TO PATIENTS WHO ARE OR HAVE BEEN ENROLLED IN A CHEMICAL DEPENDENCY/SUBSTANCEABUSE PROGRAM, SOME INFORMATION MAY BE OMITTED. This clinical summary was aggregated from multiple sources. Caution should be exercised in using it in the provision of clinical care. This summary normalizes information from multiple sources, and as a consequence, information in this document may materially change the coding, format and clinical context of patient data. In addition, data may be omitted in some cases. CLINICAL DECISIONS SHOULD BE BASED ON THE PRIMARY CLINICAL RECORDS. [employer] provides no warranty or guarantee of the accuracy or completeness of information in this document.
== END 2024-10-31 11:58 | disposition home or self-care (01) ==
LOC: CT 11:57
PROVIDERS: PCP Family Medicine; Visit Provider Family Medicine
DX: R07.82 Intercostal pain (principal); M62.830 Muscle spasm of back; J44.9 Chronic obstructive pulmonary disease, unspecified; R91.8 Other nonspecific abnormal finding of lung field
CPT/HCPCS: 71250

== ENCOUNTER 2024-11-16 10:53 | Outpatient (OUT) | payer BC, SELFPAY ==
--- OUTSIDE RECORDS SUMMARY | 2024-11-16 11:09 | XMS_ITS | CCD ---
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 Name Role Phone PELON CORTEZ Unavailable Unavailab [...] Care Provider NOHEMI PHOENIX Primary Care Physician [phone] Yonatan Rosado Attending Unavailable Yonatan Rosado Admitting Unavailable Nohemi Phoenix MD Primary Care Provider Esthela Fields MD Attending Provider [phone] Yonatan Rosado Admitting Unavailable Yonatan Rosado Attending Unavailable Nohemi Phoenix Primary Care Unavailable Esthela Fields Attending UnavailEsthela Denney Admitting UnavailEsthela Denney Admitting UnavailNohemi Ford Primary Care Unavailable Esthela Fields Attending UnavailNohemi Ford MD Unavailable TAMIKO WEEKS Referring Unavailable TAMIKO WEEKS Referring Unavailable TAMIKO WEEKS Referring Unavailable TAMIKO WEEKS Referring Unavailable MICKY, TAMIKO Referring Unavailable MICKY, TAMIKO Referring Unavailable MICKY, TAMIKO Referring Unavailable MICKY, TAMIKO Referring Unavailable MICKY, TAMIKO Referring Unavailable MICKY, TAMIKO Referring Unavailable MICKY, TAMIKO Referring Unavailable MICKY, TAMIKO Referring Unavailable MOUKARBELASHIA Attending Unavailable MICKY, TAMIKO Referring Unavailable MICKY, TAMIKO Referring Unavailable MICKY, TAMIKO Referring Unavailable MICKY, TAMIKO Referring Unavailable SIA, AMRIT Referring Unavailable SIA, AMRIT Referring Unavailable SIA, AMRIT Referring Unavailable HERRERA, CHEVY Cole Attending Unavailable LIZETT, NOHEMI Silva Attending Unavailable MELINA, ZENIA Silva Attending Unavailable DOLCE, YONATAN Cerda Attending Unavailable MELINA, ZENIA Silva Referring Unavailable MELINA, ZENIA Silva Attending Unavailable SUMNER, ESTHELA Briggs Attending Unavailable MELINA, ZENIA Silva Referring Unavailable DOLCE, YONATAN Cerda Referring Unavailable DOLCE, YONATAN Cerda Attending Unavailable DOLCE, YONATAN Cerda Attending Unavailable DOLCE, YONATAN Cerda Attending Unavailable DOLCE, YONATAN Cerda Attending Unavailable DOLCE, YONATAN Cerda Attending Unavailable DOLCE, YONATAN Cerda Attending Unavailable DOLCE, YONATAN Cedra Attending Unavailable DOLCE, YONATAN Cerda Attending Unavailable DOLCE, CASI Tolbert Attending Unavailable DOLCE, YONATAN Cerda Attending Unavailable DOLCE, YONATAN Cerda Attending Unavailable DOLCE, YONATAN Cerda Attending Unavailable Allergies Allergy Classification Reported Allergen(s) Allergy Type Date of Onset Reaction(s) Facility (20 sources) codeine; Translations: [CODEINE] Drug Allergy 11-10-2011 Nausea Only [facility] Repository (2 sources) atorvastatin; Translations: [ATORVASTATIN] Drug Allergy 12-01-2012 [facility] Repository (20 sources) atorvastatin Drug Allergy 02-10-2014 [facility] Healthcare Medications Current Medications Medication Drug Class(es) [...] to 5 days 20 tablet 01/04/2024 01/09/2024 [id number] 200 actuat albuterol 0.09 mg/actuat metered dose inhaler (10 sources) beta2-Adrenergic Agonist Start: 03-30-2024 End: 04-21-2025 [...] neuropathy, with long-term current use of insulin ([facility]) 1 (one) time each day [...] hours. Active clopidogrel 75 mg oral tablet (8 sources) P2Y12 Platelet Inhibitor Start: 04-16-2024 take 1 tablet by mouth once daily clopidogrel (Plavix) 75 MG tablet Take 75 mg by mouth Daily 04/16/2024 Active Continuous Glucose Sensor (FreeStyle Shazia 2 Sensor) [facility] (20 sources) Start: 09-28-2023 inject 1 dose by subcutaneous injection once Continuous Glucose Sensor (FreeStyle Shazia 2 Sensor) [facility] Indications: Poorly controlled diabetes mellitus (HCC) Inject 1 each under the skin every 14 (fourteen) days 6 each 3 09/28/2023 Active Start: 09-28-2023 inject 1 dose by sub cutaneous injection once Continuous Glucose Sensor (FreeStyle Shazia 2 Sensor) mis Indications: Poorly controlled diabetes mellitus (CMS/HCC) Inject 1 each under the skin every 14 (fourteen) days 6 each 3 09/28/2023 Active Continuous Glucose Sensor (FreeStyle Shazia 3 Plus Sensor) [facility] (4 sources) Start: 10-07-2024 Continuous Glucose Sensor (FreeStyle Shazia 3 Plus Sensor) [facility] Indications: Poorly controlled diabetes mellitus (HCC) 1 each every 14 (fourteen) days 12 each 3 10/07/2024 Active diazePAM 5 mg oral tablet (20 [...] with long-term current use of insulin (HCC) Take 1 tablet (25 mg) by mouth [...] neuropathy, with long-term current use of insulin (CMS/[facility]) 1 capsule every 12 (twelve) [...] 2 diabetes mellitus with foot ulcer (CODE) ([facility]) INJECT 30 UNITS UNDER THE SKIN IN THE MORNING AND AT NOON AND IN THE EVENING. INJECT BEFORE MEALS. 100 mL 3 05/27/2024 Active Start: 05-16-2024 End: 05-16-2024 insulin aspart (NovoLOG FLEX PEN) 100 UNIT/ML pen Indications: Type 2 diabetes mellitus with foot ulcer (CODE) ([facility]) Inject 30 Units under the skin in the morning and 30 Units at noon and 30 Units in the evening. Inject before meals. 10 mL 05/16/2024 Active Start: 01-20-2024 Insulin Aspart (NovoLOG) 100 UNIT/ML solution Indications: Type 2 diabetes mellitus without complications (CMS/HCC) Inject 30 Units under the skin in [...] complication, with long-term current use of insulin ([facility]) INJECT 56 UNITS UNDER THE [...] Start: 01-29-2023 take 1 capsule by mo [facility] once daily omeprazole (PriLOSEC) [address] [...] 01/02/2024 Active tiZANidine 4 mg oral tablet (6 sources) Central alpha-2 Adrenergic Agonist Start: 10-25-2024 End: 11-04-2024 take 1 tablet by mouth every six hours for muscle spasms tiZANidine (Zanaflex) 4 MG tablet Indications: Muscle spasm of back Take 1 tablet (4 mg) by mouth every 6 (six) hours if needed for muscle spasms for up to 10 days 30 tablet 10/25/2024 Active Start: 10-05-2024 End: 10-15-2024 take 1 tablet [...] neuropathy, with long-term current use of insulin ([facility]) USE DIRECTED 100 each 4 09/24/2022 02/19/2024 Discontinued Start: 09-24-2022 Tuberculin Syr jose alberto (UltiCare Tuberculin Safety Syr) 25G X 5/8 1 ML [facility] Indications: Type 2 diabetes mellitus with diabetic autonomic neuropathy, with long-term current use of insulin ([facility]) USE DIRECTED 100 each 4 09/24/2022 Active [...] disease (20 sources) 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; Translations: [Coronary [...] 10-21-2021 Episodic Gangrene (1 source) 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, left leg; Translations: [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, left leg] [...] Translations: [Immunodeficiency due to conditions classified elsewhere (CMS/[facility])] 12-16-2023 Chronic Immunizations and screening [...] ankle] 12-21-2023 Chronic Other aftercare (1 source) supervisor intermediates (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; Translations: [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 SUPERVISOR CURRENT USE OF ASPIRIN] Onset: 10-21-2021 Episodic Other aftercare (1 source) supervisor intermediates (current) use of insulin; Translations: [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 SUPERVISOR CURRENT USE OF INSULIN] Onset: 10-21-2021 Episodic Other aftercare (1 source) Other chcf (current) drug therapy; Translations: [OTH [facility] CURRENT DRUG THERAPY] Onset: 10-21-2021 Episodic Other [...] Spondylosis; intervertebral disc disorders; other back problems (14 sources) Spasm of back muscles; Translations: [Muscle [...] Unclassified (4 sources) PAD (peripheral artery disease) ([facility]) 12-28-2023 Results Test Name Value Interpretation Reference Range Facility Orders Onlyon 11-03-2024 Orders Only [id number] Leida Hou 1965 M Date Provider Department Center 11/03/2024 TAMIKO [facility] Family History Family history unknown: Yes Normal [facility] CT CHEST WO CONon 10-31-2024 [place] [address] CT Scan Report Signed Patient: LEIDA HOU MR#: [id number] : 1965 Acct:[id number] Age/Sex: 59 / M ADM Date: 10/31/24 Loc: CT Attending Dr: NOHEMI PHOENIX Ordering Physician: NOHEMI PHOENIX Date of Service: 10/31/24 Procedure(s): CT chest wo con Accession Number(s): [id number] cc: NOHEMI PHOENIX [place] [address] Patient Name: LEIDA HOU MRN: [id number] date: 1965 Sex: M Assigned Patient Location: CT Current Patient Location: CT Accession/Order Number: [id number] Exam Date: 10/31/2024 12:05 Report Date: 10/31/2024 13:16 At the request of: NOHEMI PHOENIX Procedure: CT chest wo con CT CHEST WITHOUT CONTRAST CLINICAL DATA: Right anterior chest wall pain radiating to the back over the past month after cutting down trees. COMPARISON: None Spiral images were obtained through the chest without contrast. Images were reviewed using both narrow and wide window settings. This CT exam was performed using one or more following dose reduction techniques: Automated exposure control, adjustment of the mA and/or kV according to patient size, or use of iterative reconstruction technique. There is a left-sided pacemaker. Median sternotomy wires and a periprosthetic aortic valve are seen. The heart is within normal limits for size. No pericardial effusion is noted. There is coronary artery disease and/or stents. No aortic aneurysm is present. There is atherosclerotic plaque at the aortic arch and proximal great vessels. No enlarged lymph nodes are identified. Bilateral gynecomastia is seen. Subtle dextroscoliotic curvature and degenerative changes are seen at the spine. No vertebral, displaced rib or sternal fractures are noted. There is obstructive lung disease with airspace lucencies and apical blebs. There is minimal scarring. No consolidation, pleural effusion or pneumothorax is seen. There are multiple tiny scattered punctate 2 mm nodules bilaterally. Limited cuts through the upper abdomen show moderate food debris within the stomach. CT/CT chest wo con IMPRESSION: TINY BILATERAL PULMONARY NODULES. OBSTRUCTIVE LUNG DISEASE. NO ACUTE FINDINGS. Impression dictated by: Yanci Kraft M.D. 10/31/2024 1:16 PM Dictation Location: [place] [address] Electronically authenticated by: [id number] Y Date: 10/31/2024 13:16 Dictated By: Yanci Kraft M.D. Signed By: 10/31/24 1318 DD/ 1316 TD/TT: Transportation Maintenance Worker: [facility] Radiology, Radiologzohaib leiva MD - 10/31/2024 [place] [address] CT Scan Report Signed Patient: LEIDA HOU MR#: [id number] : 1965 Acct:[id number] Age/Sex: 59 / M ADM Date: 10/31/24 Loc: CT Attending Dr: NOHEMI PHOENIX Ordering Physician: NOHEMI PHOENIX Date of Service: 10/31/24 Procedure(s): CT chest wo con Accession Number(s): [id number] cc: NOHEMI PHOENIX [place] [id number] Patient Name: LEIDA HOU MRN: [facility]:[id number] date: 1965 Sex: M Assigned Patient Location: CT Current Patient Location: CT Accession/Order Number: [id number] Exam Date: 10/31/2024 12:05 Report Date: 10/31/2024 13:16 At the request of: NOHEMI PHOENIX Procedure: CT chest wo con CT CHEST WITHOUT CONTRAST CLINICAL DATA: Right anterior chest wall pain radiating to the back over the past month after cutting down trees. COMPARISON: None Spiral images were obtained through the chest without contrast. Images were reviewed using both narrow and wide window settings. This CT exam was performed using one or more following dose reduction techniques: Automated exposure control, adjustment of the mA and/or kV according to patient size, or use of iterative reconstruction technique. There is a left-sided pacemaker. Median sternotomy wires and a periprosthetic aortic valve are seen. The heart is within normal limits for size. No pericardial effusion is noted. There is coronary artery disease and/or stents. No aortic aneurysm is present. There is atherosclerotic plaque at the aortic arch and proximal great vessels. No enlarged lymph nodes are identified. Bilateral gynecomastia is seen. Subtle dextroscoliotic curvature and degenerative changes are seen at the spine. No vertebral, displaced rib or sternal fractures are noted. There is obstructive lung disease with airspace lucencies and apical blebs. There is minimal scarring. No consolidation, pleural effusion or pneumothorax is seen. There are multiple tiny scattered punctate 2 mm nodules bilaterally. Limited cuts through the upper abdomen show moderate food debris within the stomach. CT/CT chest wo con IMPRESSION: TINY BILATERAL PULMONARY NODULES. OBSTRUCTIVE LUNG DISEASE. NO ACUTE FINDINGS. Impression dictated by: Yanci Kraft M.D. 10/31/2024 1:16 PM Dictation Location: [place] [address] Electronically authenticated by: [id number] Y Date: 10/31/2024 13:16 Dictated By: Yanci Kraft M.D. Signed By: 10/31/24 1318 DD/ 1316 TD/TT: Transportation Maintenance Worker: [facility] Radiology Study observation (narrative) [facility] CT CHEST WO CONOrdered By: Tomasz adiologtee Radiology on 10-31-2024 [facility] Work Phone: [phone] 09-27-2024 36 Called patient to re schedule him for a no show appointment from July. Unable to make contact with patient, no answer, voice mailbox not set up Normal [facility] Orders Onlyon 07-02-2024 Orders Only [id number] Leida Hou 1965 M Date Provider Department Center 07/02/2024 LISBETH MATHIS [facility] CARD [facility] Family History Family history unknown: Yes Normal [facility] HbA1c (Bld) [Mass fraction]o n 05-16-2024 Interpretation and review of laboratory results Abnormal [facility] POCT glycosylated hemoglobin (Hb A1C) docked deviceon 05-16-2024 HbA1c (Bld) [Mass fraction] 8.9 % [facility] Surgical Pathology Reporton 01-26-2024 Surgical Pathology Report [facility] [address] [place] [address]- Surgical Pathology Report Collected Date/Time: 01/18/2024 12:35 [...] has a benitez/pink/light green/light yellow necrotic appearance. Risk Management Specialist portion is submitted in a total of four cassettes: 1-2 - Skin and soft tissue 3-4 - Bone after decalcification (DC) DC:[facility] Microscopic Description Microscopic examination performed unless gross only specified. Normal [facility] Comment on above: Performed By: #### [id number] #### [facility] Laboratory [address] [place] [address] US UNI ankle/arm indiceson 1 03-20-2023 US UNI ankle/arm indices [facility] Main [place] [address] [place] [address] Ultrasound Report Signed Patient: Leida Hou MR#: [id number] : 1965 Acct:[id number] Age/Sex: 58 / M ADM Date: 01/19/24 Loc: IR Room: Type: [facility] Attending Dr: Esthela Fields MD Ordering Provider: Esthela Fields MD Date of Service: 01/19/24 US/US UNI ankle/arm indices: Procedure baseline study, left leg only please Copies to: Esthela Fields MD LOWER EXTREMITY SEGMENTAL ARTERIAL DOPSCAN [...] was identified after intervention. Impression dictated by: Esthela Fields MD01/19/2024 2:21 PM Dictation Location: [facility] Tech: Princess Hampton Transcribed By: [facility] 01/19/24 1421 Dictated By: Esthela Fields MD 01/19/24 1419 Signed By: 01/19/24 1421 Normal [facility] Blood Urea Nitrogenon 2023 Urea nitrogen [Mass/Vol] 33 mg/dL High 7-25 [facility] Physician [facility] Comment on above: Performed By: #### B LYDIA CREAT #### [address] Creatinineon 01-07-2024 Creatinine [Mass/Vol] 1.59 mg/dL High 0.70-1.30 [facility] Comment on above: Performed By: #### B LYDIA, CREAT #### [place] [id number] [place] Creatinine Clr Calc Pharmacy 54.23 Normal [facility] Comment on above: Result Comment: PERF ORMED BY: [facility] [address] [place] [address] PATHOLOGIST JUNIOR BOOKKEEPER RUTH HOGUE M.D. Performed By: #### B UN, CREAT #### [facility] [address] Estimated GFR 49.390 mL/Min Normal [facility] Comment on above: Performed By: #### B UN, CREAT #### [facility] [address] Creatinine (Bld) [Mass/Vol]O rdered By: Esthela Fields on 01-07-2024 Creatinine [Mass/Vol] Whole blood creatinine measurement High 0.6-1.3 [facility] Comment on above: ER/ESD physician is notified/shown all ISTAT results.Critical values may be confirmed by laboratory testing ifdeemed necessary by ER attending doctor. Creatinine [Mass/volume] in Serum or PlasmaOrdered By: Esthela Fields on 01-07-2024 Creatinine [Mass/Vol] Creatinine [Mass/volume] in Serum or Plasma High 0.70-1.30 [facility] Glucose Glucometer (BldC) [M ass/Vol]Ordered By: Esthela Fields on 01-07-2024 Glucose [Mass/Vol] Capillary blood gluc ose measurement by glucometer (mass/volume) [facility] Comment on above: Random Glucose Refer ence Range is dependent on time and content of last meal. Glucose of more than 200 mg/dL in a nonstressed, ambulatory subject supports the diagnosis of Diabetes Mellitus. Glucose Poct Glucometerson 03-08-2023 Glucose [Mass/Vol] 172 mg/dL Normal [facility] Comment on above: Result Comment: [place] Glucose Reference Range is dependent on time and content of last meal. Glucose of more than 200 mg/dL in a nonstressed, ambulatory subject supports the diagnosis of Diabetes Mellitus. PERFORMED BY: [facility] [address] [place] [address] PATHOLOGIST JUNIOR BOOKKEEPER RUTH HOGUE M.D. Performed By: #### G LULS #### Point of Care testing , ISTAT XRay CREon 01-07-2024 Creatinine [Mass/Vol] 1.7 mg/dL High 0.6-1.3 [facility] Comment on above: Result Comment: ER/E SD physician is notified/shown all ISTAT results. Critical values may be confirmed by laboratory testing if deemed necessary by ER attending doctor. Performed By: #### I SCRE #### [facility] [address] [place] [address] ISTAT GFR 45.581 Normal [facility] Comment on above: Result Comment: PERF ORMED BY: [place] [address] PATHOLOGIST JUNIOR BOOKKEEPER RUTH HOGUE M.D. Performed By: #### I SCRE #### [facility] [address] [place] [address] No Panel InformationOrdered By: Esthela Fields on 01-07-2024 Bedside Estimated GFR (eGFR) 45.581 [facility] Estimated GFR (CKD-EPI) 49.390 mL/Min [facility] Creatinine Clearance (Chem 54.23 [facility] Urea nitrogen [Mass/volume] in Serum or PlasmaOrdered By: Esthela Fields on 01-07-2024 Urea nitrogen [Mass/Vol] Urea nitrogen [Mass/volume] in Serum or Plasma High 7-25 [facility] C WOUNDon 12-24-2023 [facility] WOUND CULTURE Microbiology PROCEDURE: Wound Culture [R1] SOURCE: Wound BODY SITE: Toe COLLECTED DATE/TIME: 12/21/2023 10:20 EDT RECEIVED DATE/TIME: 12/21/2023 12:23 EDT START DATE/TIME: 12/21/2023 12:23 EDT FREE TEXT SOURCE: Left great toe Yonatan Rosado DPM, DPM, Yonatan Cerda FINAL REPORTS Final Report [...] Locations R1: This test was performed at: [facility] [address] [place] [address], [id number] , , [facility] Original Ordering Pr ovider: SUSANA Mitchelldann [facility] XR Foot - left 3 Viewson Imaging Result: XRAY: Three views were taken today AP/MO/LAT foot: No fractures or dislocations seen No overt signs of osteomyelitis noted of the left great toe joint or proximal phalanx no gas noted in the soft tissue [facility] Radiology Study observation (narrative) [facility] Laboratory - Hematology and Cell countson 12-16-2023 HbA1c (Bld) [Mass fraction] 10 % [facility] No Panel Informationon 12-15 Interpretation and review of laboratory results Abnormal [facility] ALL BASIC METABOLIC PANELon 11-25-2023 Anion gap [Moles/Vol] 12.3 mmol/L [facility] Calcium [Mass/Vol] 9.5 mg/dL 8.5 - 10. 1 mg/dL [facility] Chloride [Moles/Vol] 102 mmol/L 98 - 10 7 mmol/L [facility] CO2 [Moles/Vol] 26.2 mmol/L 21.0 - 32.0 mmol/L [facility] Creatinine [Mass/Vol] 1.34 mg/dL High 0.70 - 1.30 mg/dL [facility] GFR/1.73 sq M.predicted CKD-EPI (S/P/Bld) [Vol rate/Area] >60 >=60 mL/min/1.7 3m 2 [facility] Glucose [Mass/Vol] 380 mg/dL High 74 - 106 mg/dL [facility] Potassium [Moles/Vol] 4.5 mmol/L 3.5 - 5.1 mmol/L [facility] Sodium [Moles/Vol] 136 mmol/L 136 - 145 mmol/L [facility] TBH EGFR-NON AF M[place]ICAN 54 Low >=60 mL/min/1.7 3m 2 [facility] Urea nitrogen [Mass/Vol] 23.0 mg/dL High 7.0 - 18.0 mg/dL [facility] Urea nitrogen/Creatinine [Mass ratio] 17.2 mg/mg [facility] ALL LIPID PROFILE (FASTING)o n 11-25-2023 CHOL HDL RATIO 5.3 [facility] Comment on above: 3.3 - 4.4 LOW RISK 4.4 - 7.1 AVERAGE RISK 7.1 - 11.0 MODERATE RISK >11.0 HIGH RISK Cholesterol [Mass/Vol] 181 mg/dL NINF - 200 mg/dL [facility] Cholesterol in HDL [Mass/Vol] 34 mg/dL Low 40 - 60 mg/dL [facility] Comment on above: > or =60 mg/dl - LOW CARDIOVASCULAR RISK <40 mg/dl - HIGH CARDIOVASCULAR RISK Magnesium [Mass/Vol] 88.0 mg/dL [facility] Comment on above: <100 mg/dl OPTIMAL 100-129 mg/dl NEAR OR ABOVE OPTIMAL 130-159 mg/dl BORDERLINE HIGH 160-189 mg/dl HIGH >190 mg/dl VERY HIGH Magnesium [Mass/Vol] 59.8 mg/dL [facility] Triglyceride [Mass/Vol] 299 mg/dL High NINF - 150 mg/dL [facility] No Panel Informationon 11-24 Interpretation and review of laboratory results Abnormal [facility] Office Visiton 11-25-2023 Follow-up visit [id number] Leida Hou 1965 M Date Provider Department Center 11/25/[address] [facility] Family History Family history unknown: Yes Level of Service:620[address] [place] OFFICE/OUTPATIENT ESTABLISHED MOD MDM 30 MIN Normal [facility] ACETAMINOPHENon 10-17-2021 Acetaminophen [Mass/Vol] ug/mL Normal 10.0-30.0 [facility] Comment on above: Performed By: #### C BC #### [facility] [address] [place] [address] [address] Prince Sosa CBC AUTO DIFFon 10-17-2021 BASO # 0.0 103/ul Normal 0.0-0.1 [facility] Comment on above: Performed By: #### C BC #### [facility] [address] [place] [address] [address] Prince Sosa Basophils/100 WBC (Bld) 0.1 % Critically low 0.2-2.0 [facility] Comment on above: Performed By: #### C BC #### [facility] [address] [place] [address] [address] Prince Sosa EO # 0.2 103/ul Normal 0.0-0.7 [facility] Comment on above: Performed By: #### C BC #### [facility] [address] [place] [address] Dr. Prince Sosa Eosinophils/100 WBC (Bld) 2.1 % Normal 0.9-7.0 [facility] Comment on above: Performed By: #### C BC #### [facility] [address] [place] [address] Dr. Prince Sosa Erythrocyte distribution width (RBC) [Ratio] 13.3 % Normal 11.0-15.0 [facility] Comment on above: Performed By: #### C BC #### [facility] [address] [place] [address] Dr. Prince Sosa Hematocrit (Bld) [Volume fraction] 37.5 % Critically low 42.0-54.0 [facility] Comment on above: Performed By: #### C BC #### [facility] [address] [place] [address] Dr. Prince Sosa Hemoglobin (Bld) [Mass/Vol] 12.9 g/dL Critically low 14.0-18.0 [facility] [facility] Comment on above: Performed By: #### C BC #### [facility] [address] [place] [address] Dr. Prince Sosa IG # 0.03 10e3/ul Normal 0.00-0.03 [facility] Comment on above: Performed By: #### C BC #### [facility] [address] [place] [address] Dr. Prince Sosa IG % 0.4 % Normal 0.0-0.5 [facility] Comment on above: Performed By: #### C BC #### [facility] [address] [place] [address] Dr. Prince Sosa LYMPH # 2.3 103/ul Normal 1.2-3.8 [facility] Comment on above: Performed By: #### C BC #### [facility] [address] [place] [address] Dr. Prince Sosa Lymphocytes/100 WBC (Bld) 33.3 % Normal 20.5-60.0 [facility] Comment on above: Performed By: #### C BC #### [facility] [address] [place] [address] Dr. Prince Sosa MANUAL DIFF REQ NO Normal [facility] Comment on above: Performed By: #### C BC #### [facility] [address] [place] [address] Dr. Prince Sosa MCH (RBC) [Entitic mass] 29.4 pg Normal 25.9-34.0 [facility] Comment on above: Performed By: #### C BC #### [facility] [address] [place] [address] Dr. Prince Sosa MCHC (RBC) [Mass/Vol] 34.4 g/dL Normal 29.9-35.2 [facility] Comment on above: Performed By: #### C BC #### [facility] [address] [place] [address] Dr. Prince Sosa MCV (RBC) [Entitic vol] 85.4 fL Normal 80.0-94.0 [facility] Comment on above: Performed By: #### C BC #### [facility] [address] [place] [address] Dr. Prince Sosa MONO # 0.6 103/ul Normal 0.3-0.8 [facility] Comment on above: Performed By: #### C BC #### [facility] [address] [place] [address] Dr. Prince Sosa Monocytes/100 WBC (Bld) 8.1 % Normal 1.7-12.0 [facility] Comment on above: Performed By: #### C BC #### [facility] [address] [place] [address] Dr. Prince Sosa NEUT # 3.9 103/ul Normal 1.4-6.5 [facility] Comment on above: Performed By: #### C BC #### [facility] [address] [place] [address] Dr. Prince Sosa Neutrophils/100 WBC (Bld) 56.0 % Normal 43.0-75.0 [facility] Comment on above: Performed By: #### C BC #### [facility] [address] [address] [address] Prince Sosa Platelet mean volume (Bld) [Entitic vol] 10.5 fL Normal 9.5-13.5 [facility] Comment on above: Performed By: #### C BC #### [facility] [address] [address] [address] Prince Sosa PLT 107 103/ul Critically low 150-450 [facility] Comment on above: Performed By: #### C BC #### [facility] [address] [address] [address] Prince Sosa RBC 4.39 106/ul Critically low 4.70-6.10 [facility] Comment on above: Performed By: #### C BC #### [facility] [address] [place] [address] Dr. Prince Sosa WBC 7.0 103/ul Normal 4.0-11.0 [facility] Comment on above: Performed By: #### C BC #### [facility] [address] [place] [address] CSPINE WO CONon [...] the cervical spine. Electronically authenticated by: LIZETH TEERSA Date: 2021-10-17 00:57 Normal [facility] CT HEAD WO CONon 10-17-2021 CT HEAD [...] ALYSSA YANEZ Date: 2021-10-17 00:45 Normal [facility] Covid-19 PCR (CVDTB)on 09-24 SARS-CoV-2 (COVID-19) RNA CARMEN+probe Ql (Unsp spec) Not detected Normal NOT DETECTED [facility] Comment on above: Result Comment: When diagnostic [...] for this test is supported by the [employer] Protection Maintainer of Health and Human Service's declaration that [...] used). Performed By: #### C BC #### [facility] [address] [place] [address] Dr. Prince Sosa ETHANOL (BLD ALC)on 10-18-19 ALC NOTE NOTE: 80 mg/dl is th e legal limit for a blood alcohol level Normal [facility] Comment on above: Performed By: #### E TH #### [facility] [address] [place] [address] Dr. Prince Sosa Ethanol [Mass/Vol] 170 mg/dL Normal [facility] Comment on above: Performed By: #### E TH #### [facility] [address] [place] [address] Dr. Prince Sosa ALC NOTE NOTE: 80 mg/dl is th e legal limit for a blood alcohol level Normal [facility] Comment on above: Performed By: #### C BC #### [facility] [address] [place] [address] Dr. Prince Sosa Ethanol [Mass/Vol] 201 mg/dL Normal [facility] Comment on above: Performed By: #### C BC #### [facility] [address] [place] [address] Dr. Prince Sosa POINT OF CARE GLUCOSEon 09-24 Glucose [Mass/Vol] 186 mg/dL Critically high 74-106 [facility] Comment on above: Performed By: #### P OCGLUC #### [facility] [address] [place] [address] Dr. Prince Sosa Glucose [Mass/Vol] 220 mg/dL Critically high 74-106 [facility] Comment on above: Performed By: #### C BC #### [facility] [address] [place] [address] Dr. Prince Sosa PROF 14(COMP METB)on 022 Albumin [Mass/Vol] 3.5 g/dL Normal 3.4-5.0 [facility] Comment on above: Performed By: #### S ALYC, HSTROPN, ETH, ACET, CMP #### [facility] [address] [place] [address] Dr. Prince Sosa Albumin/Globulin [Mass ratio] 1.1 {ratio} Normal [facility] Comment on above: Performed By: #### S ALYC, HSTROPN, ETH, ACET, CMP #### [facility] [address] [place] [address] Dr. Prince Sosa ALP [Catalytic activity/Vol] 61 U/L Normal 46-116 [facility] Comment on above: Performed By: #### S ALYC, HSTROPN, ETH, ACET, CMP #### [facility] [address] [place] [address] Dr. Prince Sosa ALT [Catalytic activity/Vol] 33 U/L Normal 16-63 [facility] Comment on above: Performed By: #### S ALYC, HSTROPN, ETH, ACET, CMP #### [facility] [address] [place] [address] Dr. Prince Sosa Anion gap [Moles/Vol] 14.7 mmol/L Normal [facility] Comment on above: Performed By: #### S ALYC, HSTROPN, ETH, ACET, CMP #### [facility] [address] [place] [address] Dr. Prince Sosa AST [Catalytic activity/Vol] 23 U/L Normal 15-37 [facility] Comment on above: Performed By: #### S ALYC, HSTROPN, ETH, ACET, CMP #### [facility] [address] [place] [address] Dr. Prince Sosa Bilirubin [Mass/Vol] 0.4 mg/dL Normal 0.2-1.0 [facility] Comment on above: Performed By: #### S ALYC, HSTROPN, ETH, ACET, CMP #### [facility] [address] [address] [address] Prince Sosa Calcium [Mass/Vol] 8.8 mg/dL Normal 8.5-10.1 [facility] Comment on above: Performed By: #### S ALYC, HSTROPN, ETH, ACET, CMP #### [facility] [address] [address] [address] Prince Sosa Chloride [Moles/Vol] 96 mmol/L Critically low 98-107 [facility] Comment on above: Performed By: #### S ALYC, HSTROPN, ETH, ACET, CMP #### [facility] [address] [place] [address] Dr. Prince Sosa CO2 [Moles/Vol] 21.0 mmol/L Normal 21.0-32.0 [facility] Comment on above: Performed By: #### S ALYC, HSTROPN, ETH, ACET, CMP #### [facility] [address] [place] [address] Dr. Prince Sosa Creatinine [Mass/Vol] 1.12 mg/dL Normal 0.70-1.30 [facility] Comment on above: Performed By: #### S ALYC, HSTROPN, ETH, ACET, CMP #### [facility] [address] [place] [address] Dr. Prince Sosa EGFR-AF MEXICAN >60 Normal >=60 [facility] Comment on above: Performed By: #### S ALYC, HSTROPN, ETH, ACET, CMP #### [facility] [address] [place] [address] Dr. Prince Sosa EGFR-NON AF MEXICAN >60 Normal >=60 [facility] Comment on above: Performed By: #### S ALYC, HSTROPN, ETH, ACET, CMP #### [facility] [address] [place] [address] Dr. Prince Sosa Globulin (S) [Mass/Vol] 3.3 g/dL Normal [facility] Comment on above: Performed By: #### S ALYC, HSTROPN, ETH, ACET, CMP #### [facility] [address] [address] [address] Prince Sosa Glucose [Mass/Vol] 222 mg/dL Critically high 74-106 [facility] Comment on above: Performed By: #### S ALYC, HSTROPN, ETH, ACET, CMP #### [facility] [address] [address] [address] Prince Sosa Potassium [Moles/Vol] 3.7 mmol/L Normal 3.5-5.1 [facility] Comment on above: Performed By: #### S ALYC, HSTROPN, ETH, ACET, CMP #### [facility] [address] [address] [address] Prince Sosa Protein [Mass/Vol] 6.8 g/dL Normal 6.4-8.2 [facility] Comment on above: Performed By: #### S ALYC, HSTROPN, ETH, ACET, CMP #### [facility] [address] [address] [address] Prince Sosa Sodium [Moles/Vol] 128 mmol/L Critically low 136-145 [facility] Comment on above: Performed By: #### S ALYC, HSTROPN, ETH, ACET, CMP #### [facility] [address] [address] [address] Prince Sosa Urea nitrogen [Mass/Vol] 17.0 mg/dL Normal 7.0-18.0 [facility] Comment on above: Performed By: #### S ALYC, HSTROPN, ETH, ACET, CMP #### [facility] [address] [address] [address] Prince Sosa Urea nitrogen/Creatinine [Mass ratio] 15.2 mg/mg Normal [facility] Comment on above: Performed By: #### S ALYC, HSTROPN, ETH, ACET, CMP #### [facility] [address] [place] [address] Dr. Prince Sosa PROTIMEon 10-17-2021 INR Coag (PPP) [Relative time] 1.07 {INR} Normal [facility] Comment on above: Performed By: #### C BC #### [facility] [address] [address] [address] Prince Sosa INR GUIDELINES SEE BELOW Normal [facility] Comment on above: Result Comment: KRISTIAN RED INR: 2.0 - 3.0 CONDITIONS NOT LISTED BELOW 2.5 - 3.5 FOR PROSTHETIC HEART VALVE REPLACEMENT 2.5 - 3.5 RECURRENT THROMBOSIS Performed By: #### C BC #### [facility] [address] [address] [address] Prince Sosa PT Coag (PPP) [Time] 11.5 s Normal 9.0-11.6 [facility] Comment on above: Performed By: #### C BC #### [facility] [address] [place] [address] Dr. Prince Sosa PTTon 10-17-2021 aPTT Coag (Bld) [Time] 25.5 s Normal 22.3-36.2 [facility] Comment on above: Performed By: #### C BC #### [facility] [address] [place] [address] Dr. rPince Sosa SALICYLATEon 10-17-2021 SALICYLATE 0.7 mg/dL Normal <=19.9 [facility] Comment on above: Performed By: #### S ALYC, HSTROPN, ETH, ACET, CMP #### [facility] [address] [place] [address] Dr. Prince Sosa TROPONIN, HIGH SENSITIVITYon 10-17-2021 HSTROP 33.2 pg/mL Normal 4.0-76.1 [facility] Comment on above: Result Comment: CUT- OFF POINTS HAVE BEEN ESTABLISHED BASED ON THE FOURTH UNIVERSAL DEFINITIONS OF MYOCARDIAL INFARCTION. THE UPPER REFERENCE LIMIT (URL) OF TROPONIN, DEFINED THE 99TH PERCENTILE OF cTnI DISTRIBUTION IN A REFERENCE POPULATION, HAS BEEN CONFIRMED THE DECISION THRESHOLD FOR [place] DIAGNOSIS. Performed By: #### C BC #### [facility] [address] [place] [address] Dr. Prince Sosa XR CHEST 1 Von [...] ALYSSA YANEZ Date: 2021-10-17 00:57 Normal [facility] XR ELBOW LT MIN 3 VIEWSon XR [...] LIZETH MOORE Date: 2021-10-17 00:47 Normal [facility] XR PELVIS 1_2 VIEWSon 2021 XR PELVIS [...] LIZETH MOORE Date: 2021-10-17 00:48 Normal [facility] Cardiovascular Lab Reporton 10-19-2020 Cardiovascular Lab Report [facility] Patient Name: Leida Hou [facility] MR #: [id number] Physician: Ashia Mendoza of [facility] Service Date: 10/18/2020 Division of Birthdate: 1965 Cardiology Room #: [facility]ovascular Services [address] [place] [address] Cardiovascular Laboratory Report INDICATION: The patient is [...] access. Therefore, this was upsized to a 6-Malagasy x 11 cm sheath. Access was obtained using same technique in the right common femoral vein and a 6-Malagasy x 11 cm sheath was placed. A 6-Malagasy Martinez catheter was used for right heart catheterization with measurement of pressures and calculation of cardiac output using the estimated Emmanuel method. Martinez catheter was removed. Bilateral selective coronary angiography was then performed using 6-Malagasy JL4 and JR4 diagnostic catheters. Catheters were removed. The 6-Malagasy JR4 diagnostic catheter was used to selectively engage the saphenous venous graft to the diagonal 1 and the radial graft to the OM1 and a 6-Malagasy AR2 diagnostic catheter was used to selectively engage the saphenous venous graft to the PDA. Catheters were removed. A 6-Malagasy TEAGAN catheter was used to selectively engage [...] segment of that obtuse marginal branch and [id number] collateral circulation filling the second obtuse marginal [...] 3-vessel (more content not included)... Normal [facility] PROGRESSon 04-07-2017 PROGRESS HNO ID: [id number] thor: Josefina Ware (Claudia) JennaoService: (none)Author Type: Physician AssistantType: Progress NotesFiled: 04/07/2017 2:51 PMNote Text:Post Op Visit:Mr. Hou is a 51 year old male who is s/p a sigmoid colectomy, smallbowel resection x2, and appendectomy on1/[address] Cortez. He presentstoday for a [...] incisions are wellapproximated without erythema or edema. Andre removed intact withoutcomplication and steri strips appliedALLERGIESAllergen Reactions- Codeine Other: See Comments Pt. States causes nauseaImpression and Plan:51 year old male s/p a sigmoid colectomy, small bowel resection x2, andappendectomy on03/25.-Diet advancement and activit were discussed in detail. Follow up with in 3 months, this appointment was made todayCLAUDIA Rangel-CFebruary 20171:54 PM Normal [facility] Basic Metabolic Panlon 03-30 Anion gap 11 mmol/L Normal 9-18 [facility] Comment on above: Performed By: #### T SCR ####[facility] [place], [place] [phone] Calcium 8.7 mg/dL Normal 8.5-10.5 [facility] Comment on above: Performed By: #### T SCR ####[address] [address] Chloride 101 mmol/L Normal 98-110 [facility] Comment on above: Performed By: #### T SCR ####[address] [address] CO2 27 mmol/L Normal 23-32 [facility] Comment on above: Performed By: #### T SCR ####[address] [address] Creatinine 0.90 mg/dL Normal 0.70-1.40 [facility] Comment on above: Performed By: #### T SCR ####[address] [address] eGFR (non-black) mL/min/{1.73_m2} Normal >60 [facility] Comment on above: Performed By: #### T SCR ####[address] [address] Glucose mass conc 110 mg/dL High 65-100 [facility] Comment on above: Performed By: #### T SCR ####[address] [address] Potassium molar conc 4.7 mmol/L Normal 3.5-5.0 [facility] Comment on above: Performed By: #### T SCR ####[address] [address] Sodium 139 mmol/L Normal 135-146 [facility] Comment on above: Performed By: #### T SCR ####[address] [address] Urea nitrogen 13 mg/dL Normal 10-25 [facility] Comment on above: Performed By: #### T SCR ####[address] [address] CBC and Differentialon 03-30 Abs Baso <0.03 Normal <0.11 [facility] Comment on above: Performed By: #### T SCR ####[address] [phone] Abs [place] 0.39 k/uL Normal <0.87 [facility] Comment on above: Performed By: #### T SCR ####[address] [phone] Abs Neut 3.18 k/uL Normal 1.45-7.50 [facility] Comment on above: Performed By: #### T SCR ####[address] [phone] Basophils/100 WBC Auto (Bld) 0.2 % Normal [facility] Comment on above: Performed By: #### T SCR ####[address] DTYPE Auto Diff Normal [facility] Comment on above: Performed By: #### T SCR ####[address] [phone] Eosinophils 0.21 10*3/uL Normal <0.46 [facility] Comment on above: Performed By: #### T SCR ####[address] [phone] Eosinophils/100 leukocytes 4.3 % Normal [facility] Comment on above: Performed By: #### T SCR ####[address] [phone] Erythrocyte distribution width Auto Ratio (RBC) 13.9 % Normal 11.5-15.0 [facility] Comment on above: Performed By: #### T SCR ####[address] [phone] Erythrocytes (RBC) 3.33 10*6/uL Low 4.20-6.00 [facility] Comment on above: Performed By: #### T SCR ####[address] [phone] Hematocrit (HCT) 28.2 % Low 39.0-51.0 [facility] Comment on above: Performed By: #### T SCR ####[address] [phone] Hemoglobin mass conc (Bld) 9.6 g/dL Low 13.0-17.0 [facility] Comment on above: Performed By: #### T SCR ####[address] [phone] Lymphocytes 1.09 10*3/uL Normal 1.00-4.00 [facility] Comment on above: Performed By: #### T SCR ####[address] [phone] Lymphocytes/100 leukocytes 22.3 % Normal [facility] Comment on above: Performed By: #### T SCR ####[address] [phone] MCH 28.8 pG Normal 26.0-34.0 [facility] Comment on above: Performed By: #### T SCR ####[address] [phone] MCHC mass conc (RBC) 34.0 g/dL Normal 30.5-36.0 [facility] Comment on above: Performed By: #### T SCR ####[address] [phone] MCV 84.7 fL Normal 80.0-100.0 [facility] Comment on above: Performed By: #### T SCR ####[address] [phone] Monocytes/100 leukocytes 8.0 % Normal [facility] Comment on above: Performed By: #### T SCR ####[address] [phone] Neutrophils/100 WBC Auto (Bld) 65.2 % Normal [facility] Comment on above: Performed By: #### T SCR ####[address] [phone] Platelet mean volume (PMV) 10.3 fL Normal 9.0-12.7 [facility] Comment on above: Performed By: #### T SCR ####[address] [phone] Platelets 115 10*3/uL Low 150-400 [facility] Comment on above: Performed By: #### T SCR ####[facility] [place], [place] [phone] WBC (Leukocytes) 4.88 10*3/uL Normal 3.70-11.00 [facility] Comment on above: Performed By: #### T SCR ####[facility] [place], [place] [phone] CNDSon 03-30-2017 CNDS HNO ID: [id number] thor: Josefina Tyler) MiglionicoService: ColorectalAuthor Type: Physician AssistantType: Discharge SummariesFiled: 03/30/2017 2:21 PMNote Text:DISCHARGE SUMMARYPATIENT NAME: Leida Hou ADMISSION DATE: 03/25/2017MRN: [id number] DISCHARGE DATE: 03/30/2017ATTENDING PHYSICIAN: Pelon Nguyen FOR HOSPITALIZATION: Scheduled SurgeryDIAGNOSIS: Diverticulitis with a bowel obstructionOPERATIONS DURING HOSPITALIZATION: Sigmoid colectomy, small bowelresection x2, and appendectomyPROCEDURES DURING HOSPITALIZATION: Intubation for surgeryHOSPITAL COURSE:Mr. Hou was admitted following the above described operation, which wasperformed without complication. Post operatively he was admitted to [facility] nursing floor for further recovery. He was [...] I leave the hospital:-Increasing abdominal pain or hdtqdyxk-Ijwzharr-Gers or no urine-Fever greater than 101.5?F (38.6?C) [...] that worsen your function should be avoided.8. [place]: If you have andre, these should be [...] [facility] the office is located at:[address] [phone] is [facility] the first [facility] office and the [facility]-up appointment reminders:Future AppointmentsDate Time Provider Department Center04/07/2017 1:40 PM [id number] DAWN (CLAUDIA) [id number] [place] MCDISCHARGE MEDICATION:Current Discharge Medication ListSTART taking these medicationsoxyCODONE IR (ROXICODONE) 5 mgTake 5 mg by mouth every 6 hours as needed for Pain.Earliest Fill Date: 2/5/18Qty: 20 tablet Refills: 0Associated Diagnoses:Acute painacetaminophen (TYLENOL) [...] applicable):SIGNATURE: Josefina Dawn PA-C PATIENT NAME: Leida Esposito: March 30, 2017 : 2:11 PM PAGER/CONTACT #: [phone] Normal [facility] Magnesiumon 03-30-2017 Magnesium 2.3 mg/dL Normal 1.7-2.6 [facility] Comment on above: Result Comment: Gil mcphersoned Performed By: #### T SCR ####[facility] [place], [place] [phone] PLAN OF CAREon 03-30-2017 PLAN OF CARE HNO ID: [id number] thor: Coral Bassett (Rock Wool Applicator)Service: (none)Author Type: TechnicianType: Plan of CareFiled: 04/01/2017 10:33 AMNote Text:TRAY LINE SUPERVISOR BEDSIDE DELIVERY SURVEY1. Patient to use [facility] Bedside Delivery - YES2. If fax, patient would like us to fax prescriptions to [facility]. Pharmacy: b. Location: c. Phone:3. Insurance card on file - YES4. Credit card for payment - N/A [facility] PLAN OF CARE HNO ID: [id number] thor: Jennifer Corea (Pharmacist)Service: PharmacyAuthor Type: PharmacistType: Plan of CareFiled: 03/30/2017 10:22 AMNote Text:DISCHARGE MEDICATION REVIEW BY PHARMACYPatient Name: Leida Hou : [id number] Admission Date: 03/25/2017Date of Contact: March 30, [...] oxyCODONE IR 5 mg immediate release tablet Normal [facility] PROGRESSon 03-30-2017 PROGRESS HNO ID: [id number] thor: [place] (Res) NaplesService: ColorectalAuthor Type: ResidentType: Progress NotesFiled: 03/30/2017 7:55 AMNote Text:GENERAL SURGERY PROGRESS NOTENAME: Leida HouMRN: [id number] 2017 7:53 AMASSESSMENT AND PLAN:Leida Hou is 51 year old male s/p laparoscopic adhesiolysis, opensigmoid colectomy + BICYCLE RACER , small bowel resection x2, appendectomy, anddrainage [...] lb 7 oz) SpO2 97% BMI 24.61 kg/s9WPTAKCV: alert, NADLUNGS: breathing comfortablyABDOMEN: soft, incision c/d/iEXTREMITIES: well perfused and warmDate 03/29/17 0700 - 03/30/17 0659 03/30/17 07 - 03/31/17 0659Shift [phone] 0097-3106 7497-0389 24 Hour Total 8633-4758 8150-79315108-7271 24 Hour TotalINTAKE PO 340 340 PO [...] 82.3 82.3 82.3 82.3 82.3 82.3Recent Labs 03/29/1803/03/351667 533WBC 4.88 4.55 -- 5.29HB 9.6* 9.2* 9.0* 7.4*HCT 28.2* 26.2* 26.6* 21.9*PLT 115* 90* -- 87*NA 139 138 -- 139K 4.7 4.0 -- 4.9CHLOR 101 101 -- 103CO2 27 26 -- 26CREAT 0.90 0.83 -- 0.89BUN 13 12 -- 21GLUC 110* 132* -- 171*P 3.0 2.2* -- 2.2*MG 2.3 1.6* -- 2.0CA 8.7 8.5 -- 8.6Robert Dulce Maria, DOGeneral Surgery, [id number] Normal [facility] Phosphoruson 03-30-2017 Phosphate 3.0 mg/dL Normal 2.5-4.5 [facility] Comment on above: Performed By: #### T SCR ####[place] [phone] Basic Metabolic Panlon 03-29 Anion gap 11 mmol/L Normal 9-18 [facility] Comment on above: Performed By: #### C ONABO ####[place] [address] Calcium 8.5 mg/dL Normal 8.5-10.5 [facility] Comment on above: Performed By: #### C ONABO ####[place] [address] Chloride 101 mmol/L Normal 98-110 [facility] Comment on above: Performed By: #### C ONABO ####[place] [phone] CO2 26 mmol/L Normal 23-32 [facility] Comment on above: Performed By: #### C ONABO ####[place] [phone] Creatinine 0.83 mg/dL Normal 0.70-1.40 [facility] Comment on above: Performed By: #### C ONABO ####[place] [phone] eGFR (non-black) mL/min/{1.73_m2} Normal >60 [facility] Comment on above: Performed By: #### C ONABO ####[place] [phone] Glucose mass conc 132 mg/dL High 65-100 [facility] Comment on above: Performed By: #### C ONABO ####[place] [phone] Potassium molar conc 4.0 mmol/L Normal 3.5-5.0 [facility] Comment on above: Performed By: #### C ONABO ####[place] [address] Sodium 138 mmol/L Normal 135-146 [facility] Comment on above: Performed By: #### C ONABO ####[place] [address] Urea nitrogen 12 mg/dL Normal 10-25 [facility] Comment on above: Performed By: #### C ONABO ####[place] [phone] CBC and Differentialon 03-29 Abs Baso <0.03 Normal <0.11 [facility] Comment on above: Performed By: #### C ONABO ####[place] [phone] Abs Concordia 0.30 k/uL Normal <0.87 [facility] Comment on above: Performed By: #### C ONABO ####[place] [phone] Abs Neut 3.02 k/uL Normal 1.45-7.50 [facility] Comment on above: Performed By: #### C ONABO ####[phone] Basophils/100 WBC Auto (Bld) 0.0 % Normal [facility] Comment on above: Performed By: #### C ONABO ####[place] [address] DTYPE Auto Diff Normal [facility] Comment on above: Performed By: #### C ONABO ####[place] [phone] Eosinophils 0.15 10*3/uL Normal <0.46 [facility] Comment on above: Performed By: #### C ONABO ####[place] [address]10 Eosinophils/100 leukocytes 3.3 % Normal [facility] Comment on above: Performed By: #### C ONABO ####[place] [phone] Erythrocyte distribution width Auto Ratio (RBC) 13.9 % Normal 11.5-15.0 [facility] Comment on above: Performed By: #### C ONABO ####[place] [address] Erythrocytes (RBC) 3.13 10*6/uL Low 4.20-6.00 [facility] Comment on above: Performed By: #### C ONABO ####[place] [address] Hematocrit (HCT) 26.2 % Low 39.0-51.0 [facility] Comment on above: Performed By: #### C ONABO ####[place] [address] Hemoglobin mass conc (Bld) 9.2 g/dL Low 13.0-17.0 [facility] Comment on above: Performed By: #### C ONABO ####[place] [phone] Lymphocytes 1.08 10*3/uL Normal 1.00-4.00 [facility] Comment on above: Performed By: #### C ONABO ####[phone] Lymphocytes/100 leukocytes 23.7 % Normal [facility] Comment on above: Performed By: #### C ONABO ####[place] [phone] MCH 29.4 pG Normal 26.0-34.0 [facility] Comment on above: Performed By: #### C ONABO ####[place] [phone] MCHC mass conc (RBC) 35.1 g/dL Normal 30.5-36.0 [facility] Comment on above: Performed By: #### C ONABO ####[place] [phone] MCV 83.7 fL Normal 80.0-100.0 [facility] Comment on above: Performed By: #### C ONABO ####[phone] Monocytes/100 leukocytes 6.6 % Normal [facility] Comment on above: Performed By: #### C ONABO ####[place] [phone] Neutrophils/100 WBC Auto (Bld) 66.4 % Normal [facility] Comment on above: Performed By: #### C ONABO ####[phone] Platelet mean volume (PMV) 10.2 fL Normal 9.0-12.7 [facility] Comment on above: Performed By: #### C ONABO ####[phone] Platelets 90 10*3/uL Low 150-400 [facility] Comment on above: Result Comment: Resu lt checked and verifiedSample checked for a clot. Performed By: #### C ONABO ####[place] [phone] WBC (Leukocytes) 4.55 10*3/uL Normal 3.70-11.00 [facility] Comment on above: Performed By: #### C ONABO ####[facility] [place], [place] [phone] Magnesiumon 03-29-2017 Magnesium 1.6 mg/dL Low 1.7-2.6 [facility] Comment on above: Performed By: #### T SCR ####[facility] [place], [place] [phone] NURSING PROGon 03-29-2017 NURSING PROG HNO ID: [id number] thor: Abena BaiRn) Ana Stone: (none)Author Type: Registered NurseType: Nursing Progress NoteFiled: 03/29/2017 7:46 PMNote Text: Nursing Progress NotePatient Name: Leida HouMRN: [id number] [address]: [id number] ____Daily Note:This note was completed by: Abena Stone, [id number] Ernie Hou pt of [facility]. Pt has bloody stools, on GI soft diet.Should the entereg be held or given? Miladis COHEN [id number] Sent text page,awaiting response. Normal [facility] NURSING PROG HNO ID: [id number] thor: Francesca (Rn) Cecelia Duffyice: (none)Author Type: Registered NurseType: Nursing Progress NoteFiled: 03/29/2017 3:48 PMNote Text: Nursing Progress NotePatient Name: Leida HouMRN: [id number] Location: [place] [address]/AM-[id number] ____ Patient AANDOx3, walking halls independently, denies N/V, still having somesmall bloody liquid BMs however no clots. Midline andre CDI. ToleratingGI soft diet, taking it slow.This note was completed by: Francesca Duffy RN [facility] PROGRESSon 03-29-2017 PROGRESS HNO ID: [id number] thor: [place] (Res) NaplesService: ColorectalAuthor Type: ResidentType: Progress NotesFiled: 03/29/2017 8:11 AMNote Text:COLORECTAL SURGERY PROGRESS NOTENAME: Leida HouMRN: [id number] 2017 8:00 AMASSESSMENT AND PLAN:Leida Hou is 51 year old male s/p laparoscopic adhesiolysis, opensigmoid colectomy + BICYCLE RACER , small bowel resection x2, appendectomy, anddrainage [...] lb 10 oz) SpO2 98% BMI 25.18 kg/m1HKEFSRU: alert, NADLUNGS: breathing comfortablyABDOMEN: soft, incision c/d/iEXTREMITIES: well perfused and warmDate 03/28/17 0700 - 03/29/17 0659 03/29/17 07 - 03/30/17 0659Shift 9028-2796 4225-5970 5651-0206 24 Hour Total 6430-4510 3033-67736499-1993 24 Hour TotalINTAKE PO 120 120 PO 120 120 IV 1665 1665 D5 0.45%NS 1665 1665 Blood Products 353 245 598 PRBC Intake (mL) 352 244 596 Packed Red Blood Cells Number of Units 1 1 2 Other Amount Wasted PRBC 0 mL 0 mL 0 mL Shift Total 473 1910 2383OUTPUT Urine 500 8839 627 4011 300 300 Void (ml) 500 3444 047 1209 300 300 # of BMs Number of BMs 1 x 3 x 0 x 4 x Stool 20 20 Liquid BM (mL) 20 20 Shift Total 520 3649 224 5881 300 300Weight (kg) 90.5 90.5 90.5 90.5 [...] 8.6 -- 8.5 8.1*[place] العراقي, DOGeneral Surgery, [id number] Normal [facility] Phosphoruson 03-29-2017 Phosphate 2.2 mg/dL Low 2.5-4.5 [facility] Comment on above: Performed By: #### T SCR ####[facility] [place], [place] [phone] Basic Metabolic Panlon 03-28 Anion gap 10 mmol/L Normal 9-18 [facility] Comment on above: Performed By: #### C ONABO ####[place] [address] Calcium 8.6 mg/dL Normal 8.5-10.5 [facility] Comment on above: Performed By: #### C ONABO ####[place] [address] Chloride 103 mmol/L Normal 98-110 [facility] Comment on above: Performed By: #### C ONABO ####[place] [address] CO2 26 mmol/L Normal 23-32 [facility] Comment on above: Performed By: #### C ONABO ####[place] [address] Creatinine 0.89 mg/dL Normal 0.70-1.40 [facility] Comment on above: Performed By: #### C ONABO ####[place] [address] eGFR (non-black) mL/min/{1.73_m2} Normal >60 [facility] Comment on above: Performed By: #### C ONABO ####[place] [address] Glucose mass conc 171 mg/dL High 65-100 [facility] Comment on above: Performed By: #### C ONABO ####[place] [address] Potassium molar conc 4.9 mmol/L Normal 3.5-5.0 [facility] Comment on above: Performed By: #### C ONABO ####[place] [address] Sodium 139 mmol/L Normal 135-146 [facility] Comment on above: Performed By: #### C ONABO ####[place] [address] Urea nitrogen 21 mg/dL Normal 10-25 [facility] Comment on above: Performed By: #### C ONABO ####[place] [phone] CBC and Differentialon 03-28 Abs Baso <0.03 Normal <0.11 [facility] Comment on above: Performed By: #### C ONABO ####[place] [phone] Abs [place]ia 0.51 k/uL Normal <0.87 [facility] Comment on above: Performed By: #### C ONABO ####[place] [phone] Abs Neut 3.94 k/uL Normal 1.45-7.50 [facility] Comment on above: Performed By: #### C ONABO ####[place] [phone] Basophils/100 WBC Auto (Bld) 0.2 % Normal [facility] Comment on above: Performed By: #### C ONABO ####[address] DTYPE Auto Diff Normal [facility] Comment on above: Performed By: #### C ONABO ####[address]10 Eosinophils 0.04 10*3/uL Normal <0.46 [facility] Comment on above: Performed By: #### C ONABO ####[address]10 Eosinophils/100 leukocytes 0.8 % Normal [facility] Comment on above: Performed By: #### C ONABO ####[place] [address] Erythrocyte distribution width Auto Ratio (RBC) 13.6 % Normal 11.5-15.0 [facility] Comment on above: Performed By: #### C ONABO ####[place] [address] Erythrocytes (RBC) 2.56 10*6/uL Low 4.20-6.00 [facility] Comment on above: Performed By: #### C ONABO ####[place] [address] Hematocrit (HCT) 21.9 % Low 39.0-51.0 [facility] Comment on above: Performed By: #### C ONABO ####[place] [phone] Hemoglobin mass conc (Bld) 7.4 g/dL Low 13.0-17.0 [facility] Comment on above: Performed By: #### C ONABO ####[place] [address] Lymphocytes 0.79 10*3/uL Low 1.00-4.00 [facility] Comment on above: Performed By: #### C ONABO ####[place] [address] Lymphocytes/100 leukocytes 14.9 % Normal [facility] Comment on above: Performed By: #### C ONABO ####[place] [address] MCH 28.9 pG Normal 26.0-34.0 [facility] Comment on above: Performed By: #### C ONABO ####[place] [address] MCHC mass conc (RBC) 33.8 g/dL Normal 30.5-36.0 [facility] Comment on above: Performed By: #### C ONABO ####[place] [address] MCV 85.5 fL Normal 80.0-100.0 [facility] Comment on above: Performed By: #### C ONABO ####[place] [phone] Monocytes/100 leukocytes 9.6 % Normal [facility] Comment on above: Performed By: #### C ONABO ####[place] [address] Neutrophils/100 WBC Auto (Bld) 74.5 % Normal [facility] Comment on above: Performed By: #### C ONABO ####[place] [phone] Platelet mean volume (PMV) 10.2 fL Normal 9.0-12.7 [facility] Comment on above: Performed By: #### C ONABO ####[place] [phone] Platelets 87 10*3/uL Low 150-400 [facility] Comment on above: Result Comment: Resu lt checked and verifiedSample checked for a clot. Performed By: #### C ONABO ####[place] [phone] WBC (Leukocytes) 5.29 10*3/uL Normal 3.70-11.00 [facility] Comment on above: Performed By: #### C ONABO ####[place] [phone] Hematocriton 03-28-2017 Hematocrit (HCT) 26.6 % Low 39.0-51.0 [facility] Comment on above: Performed By: #### C ONABO ####[place] [phone] Hemoglobinon 03-28-2017 Hemoglobin mass conc (Bld) 9.0 g/dL Low 13.0-17.0 [facility] Comment on above: Performed By: #### C ONABO ####[place] [phone] Magnesiumon 03-28-2017 Magnesium 2.0 mg/dL Normal 1.7-2.6 [facility] Comment on above: Performed By: #### C ONABO ####[place] [phone] NURSING PROGon 03-28-2017 NURSING PROG HNO ID: [id number] thor: Yanci Del Cid (Rn) Paul, RNService: (none)Author Type: Registered NurseType: Nursing Progress NoteFiled: 03/28/2017 4:17 PMNote Text: Nursing Progress NotePatient Name: Leida HouMRN: [id number] Location: [address]/TY-IL0O-86 ____Daily Note:Pt assisted up to bathroom. Pt assessment completed at bedside. Midlineopen to air, C/D/I. CLEANING AND WASHING EQUIPMENT OPERATOR infusing as ordered. MITCHEL drain serosanguinousdrainage. Denies [...] bedside obtaining consent and removing MITCHEL drain.1300 This RN and Sherwin COHEN at patient bedside to verify and begin bloodadministration as ordered. IVFs on KVO as ordered during infusion. Familyat bedside. Will monitor.1500 Orders received to d/c CLEANING AND WASHING EQUIPMENT OPERATOR pump, with IV and PO pain medicationsordered. Pt ambulating floor. First unit of PRBCs infusing without issueas ordered. Pt aware of orders.1615 2nd unit of PRBC infusion began after IV lasix given as ordered. Pttolerating infusion at this time. Will monitor. Call light in reach.This note was completed by: Yanci Miller RN [facility] PROGRESSon 03-28-2017 PROGRESS HNO ID: [id number] thor: Jyoti Turner (Res) GamaleldinService: ColorectalAuthor Type: ResidentType: Progress NotesFiled: 03/28/2017 7:22 PMNote Text: COLORECTAL SURGERY PROGRESS NOTEName: Leida HouMRN: [id number]# 3 s/p Laparoscopic adhesiolysis, Open sigmoid colectomy + BICYCLE RACER ,small bowel resection x2, Appendectomy, Drainage of pelvic abscess fordiverticulitisSUBJECTIVE: Pain - controlledNausea : NilEmesis : NilAmbulating :out of bedDrain creatinine yesterday sent and WNLFlatus : +veBowel Movement : +ve , still bloodyFoley removed this a.mOBJECTIVE:BP 145/74 Pulse 91 Temp 36.9 ?C (98.4 ?F) (Oral) Resp 16 Ht 182.9cm (6') Wt 90.5 kg (199 lb 8.3 oz) SpO2 97% BMI 27.06 kg/x7Ymvrqz/Output Summary (Last 24 hours) at 03/28/17 1919Last data filed at 03/28/17 1844 Gross per 24 hourIntake 2383 mlOutput 3535 mlNet -1152 mlAbdomen: Appropriately tender. Distension - nilIncision: wound clean , dry , intactDrains: SSADate 03/27/17 1500 - 03/28/17 0659Shift 1115-0796 8678-1820 24 Hour TotalINTAKE PO 0 0 PO 0 0 IV 265 790 D5 0.45%NS 265 265 LR 525 Blood Products PRBC Intake (mL) Packed Red Blood Cells Number of Units Other Amount Wasted PRBC Shift Total 265 790OUTPUT Urine 8750 293 5029 Void (ml) Tube Output ([REMOVED] Indwelling Urinary Catheter 03/25/17 1520Foley 16 Fr 03/28/17 0652) 2932 469 4066 Emesis 50 50 Emesis (ml) 50 50 Tubes 10 40 75 Drain/Tube Output ([REMOVED] Drain/Tube 03/25/17 1858 Zen PrattLe Anterior;Lower Quadrant Abdomen Drain #1 03/28/17 1130) [...] 2.8 6.7*Liver Function, Amylase, AND LipaseRecent Labs 883943COHK 1.5CoagsNo results for input(s): APTT, INR in the last 55151 hours.Invalid input(s): NYGIGFKFRRAE17 year old male POD# 3 s/p Laparoscopic adhesiolysis, Open sigmoidcolectomy + BICYCLE RACER , small bowel resection x2, Appendectomy, Drainage [...] he/she agrees to proceed with today?splan of care.Jyotitomer BakerPGY1, General Surgery Normal [facility] Phosphoruson 03-28-2017 Phosphate 2.2 mg/dL Low 2.5-4.5 [facility] Comment on above: Performed By: #### C ONABO ####[place] [phone] Basic Metabolic Panlon 03-27 Anion gap 10 mmol/L Normal 9-18 [facility] Comment on above: Performed By: #### C BCDIF ####[place] [phone] Calcium 8.5 mg/dL Normal 8.5-10.5 [facility] Comment on above: Performed By: #### C BCDIF ####[place] [phone] Chloride 105 mmol/L Normal 98-110 [facility] Comment on above: Performed By: #### C BCDIF ####[place] [phone] CO2 26 mmol/L Normal 23-32 [facility] Comment on above: Performed By: #### C BCDIF ####[place] [address] Creatinine 1.09 mg/dL Normal 0.70-1.40 [facility] Comment on above: Performed By: #### C BCDIF ####[place] [address] eGFR (non-black) mL/min/{1.73_m2} Normal >60 [facility] Comment on above: Performed By: #### C BCDIF ####[place] [address] Glucose mass conc 160 mg/dL High 65-100 [facility] Comment on above: Performed By: #### C BCDIF ####[place] [address] Potassium molar conc 4.7 mmol/L Normal 3.5-5.0 [facility] Comment on above: Performed By: #### C BCDIF ####[place] [address] Sodium 141 mmol/L Normal 135-146 [facility] Comment on above: Performed By: #### C BCDIF ####[place] [address] Urea nitrogen 38 mg/dL High 10-25 [facility] Comment on above: Performed By: #### C BCDIF ####[place] [address] Anion gap 9 mmol/L Normal 9-18 [facility] Comment on above: Performed By: #### C BCDIF ####[place] [address] Calcium 8.1 mg/dL Low 8.5-10.5 [facility] Comment on above: Performed By: #### C BCDIF ####[place] [address] Chloride 104 mmol/L Normal 98-110 [facility] Comment on above: Performed By: #### C BCDIF ####[place] [address] CO2 26 mmol/L Normal 23-32 [facility] Comment on above: Performed By: #### C BCDIF ####[place] [address] Creatinine 1.50 mg/dL High 0.70-1.40 [facility] Comment on above: Result Comment: Revi kyed Performed By: #### C BCDIF ####[place] [address] eGFR (non-black) 49 . Low >60 [facility] Comment on above: Performed By: #### C BCDIF ####[place] [address] eGFR (non-black) 59 mL/min/{1.73_m2} Low >60 [facility] Comment on above: Performed By: #### C BCDIF ####[place] [address] Glucose mass conc 158 mg/dL High 65-100 [facility] Comment on above: Performed By: #### C BCDIF ####[place] [address] Potassium molar conc 4.5 mmol/L Normal 3.5-5.0 [facility] Comment on above: Performed By: #### C BCDIF ####[place] [address] Sodium 139 mmol/L Normal 135-146 [facility] Comment on above: Performed By: #### C BCDIF ####[place] [address] Urea nitrogen 48 mg/dL High 10-25 [facility] Comment on above: Performed By: #### C BCDIF ####[place] [address] CBCon 03-27-2017 Erythrocyte distribution width Auto Ratio (RBC) 13.7 % Normal 11.5-15.0 [facility] Comment on above: Performed By: #### C BCDIF ####[place] [address] Erythrocytes (RBC) 2.90 10*6/uL Low 4.20-6.00 [facility] Comment on above: Performed By: #### C BCDIF ####[place] [address] Hematocrit (HCT) 24.9 % Low 39.0-51.0 [facility] Comment on above: Performed By: #### C BCDIF ####[place] [address] Hemoglobin mass conc (Bld) 8.4 g/dL Low 13.0-17.0 [facility] Comment on above: Performed By: #### C BCDIF ####[place] [address] MCH 29.0 pG Normal 26.0-34.0 [facility] Comment on above: Performed By: #### C BCDIF ####[place] [address] MCHC mass conc (RBC) 33.7 g/dL Normal 30.5-36.0 [facility] Comment on above: Performed By: #### C BCDIF ####[place] [address] MCV 85.9 fL Normal 80.0-100.0 [facility] Comment on above: Performed By: #### C BCDIF ####[place] [address]506[address] Platelet mean volume (PMV) 11.0 fL Normal 9.0-12.7 [facility] Comment on above: Performed By: #### C BCDIF ####[phone] Platelets 123 10*3/uL Low 150-400 [facility] Comment on above: Performed By: #### C BCDIF ####[place] [address] WBC (Leukocytes) 8.11 10*3/uL Normal 3.70-11.00 [facility] Comment on above: Performed By: #### C BCDIF ####[place] [address] CBC and Differentialon 03-27 Abs Baso <0.03 Normal <0.11 [facility] Comment on above: Performed By: #### C BCDIF ####[place] [address]506[address] Abs [place]ia 0.45 k/uL Normal <0.87 [facility] Comment on above: Performed By: #### C BCDIF ####[place] [address] Abs Neut 4.98 k/uL Normal 1.45-7.50 [facility] Comment on above: Performed By: #### C BCDIF ####[place] [address] Basophils/100 WBC Auto (Bld) 0.0 % Normal [facility] Comment on above: Performed By: #### C BCDIF ####[place] [address] DTYPE Auto Diff Normal [facility] Comment on above: Performed By: #### C BCDIF ####[place] [address] Eosinophils 10*3/uL Normal <0.46 [facility] Comment on above: Performed By: #### C BCDIF ####[place] [phone] Eosinophils/100 leukocytes 0.3 % Normal [facility] Comment on above: Performed By: #### C BCDIF ####[place] [address] Erythrocyte distribution width Auto Ratio (RBC) 13.7 % Normal 11.5-15.0 [facility] Comment on above: Performed By: #### C BCDIF ####[place] [address] Erythrocytes (RBC) 2.72 10*6/uL Low 4.20-6.00 [facility] Comment on above: Performed By: #### C BCDIF ####[place] [address] Hematocrit (HCT) 23.7 % Low 39.0-51.0 [facility] Comment on above: Performed By: #### C BCDIF ####[place] [address] Hemoglobin mass conc (Bld) 7.9 g/dL Low 13.0-17.0 [facility] Comment on above: Performed By: #### C BCDIF ####[place] [address] Lymphocytes 0.92 10*3/uL Low 1.00-4.00 [facility] Comment on above: Performed By: #### C BCDIF ####[place] [address] Lymphocytes/100 leukocytes 14.4 % Normal [facility] Comment on above: Performed By: #### C BCDIF ####[place] [address] MCH 29.0 pG Normal 26.0-34.0 [facility] Comment on above: Performed By: #### C BCDIF ####[place] [phone] MCHC mass conc (RBC) 33.3 g/dL Normal 30.5-36.0 [facility] Comment on above: Performed By: #### C BCDIF ####[place] [address] MCV 87.1 fL Normal 80.0-100.0 [facility] Comment on above: Performed By: #### C BCDIF ####[place] [phone] Monocytes/100 leukocytes 7.1 % Normal [facility] Comment on above: Performed By: #### C BCDIF ####[place] [phone] Neutrophils/100 WBC Auto (Bld) 78.2 % Normal [facility] Comment on above: Performed By: #### C BCDIF ####[place] [phone] Platelet mean volume (PMV) 10.8 fL Normal 9.0-12.7 [facility] Comment on above: Performed By: #### C BCDIF ####[place] [phone] Platelets 97 10*3/uL Low 150-400 [facility] Comment on above: Result Comment: Resu lt checked and verifiedSample checked for a clot. Performed By: #### C BCDIF ####[place] [phone] WBC (Leukocytes) 6.37 10*3/uL Normal 3.70-11.00 [facility] Comment on above: Performed By: #### C BCDIF ####[place] [phone] Creatinine, Fluidon 03-27-19 18 Creatinine 1.3 mg/dL Normal [facility] Comment on above: Result Comment: (NOT [...] CLSI document C49-A. CLAUDIA Mclean: ClinicalLaboratory Standards Yoder; 2007.2. Drew RJ, Gab TA, Manuela JL, Yann VM, Michael CJ.Composition of the amniotic fluid and maternal serum in . AmJ Obstet Gynecol 1974;119:798-810.This test was developed and its performance characteristicsdetermined by [facility] Path[facility] and[facility] [place] ([facility]). It has not been cleared orapproved by the FDA. -MI is regulated under CLIA as qualified toperform high-complexity testing. This test is used for clinicalpurposes. It should not be regarded as investigational or forresearch. Performed By: #### C BCDIF ####[address] [phone] Magnesiumon 03-27-2017 Magnesium 2.1 mg/dL Normal 1.7-2.6 [facility] Comment on above: Performed By: #### C BCDIF ####[address] [phone] NURSING PROGon 03-27-2017 NURSING PROG HNO ID: [id number] thor: Yanci Del Cid (Adam) Paul, JENAROervice: (none)Author Type: Registered NurseType: Nursing Progress NoteFiled: 03/27/2017 6:14 PMNote Text: Nursing Progress NotePatient Name: Leida HouMRN: [id number] Location: [place] [address]/[id number] ____Daily Note:Pt AANDOx3, states pain controlled at this time. CLEANING AND WASHING EQUIPMENT OPERATOR pump infusing asordered, PAS on b/l. Pt [...] like tospeak to him . Family at bedside.[address] العراقي, orders received for PO 40 mg of omeprazole, TUMSand d/c IV pepcid. Pt aware.This note was completed by: Yanci Miller RN [facility] PROGRESSon 03-27-2017 PROGRESS HNO ID: [id number] thor: Jyoti Turner (Res) GamaleldinService: ColorectalAuthor Type: ResidentType: Progress NotesFiled: 03/27/2017 12:07 PMNote Text: COLORECTAL SURGERY PROGRESS NOTEName: Leida HouMRN: [id number]# 2 s/p Laparoscopic adhesiolysis, Open sigmoid colectomy + BICYCLE RACER ,small bowel resection x2, Appendectomy, Drainage of pelvic abscess fordiverticulitisSUBJECTIVE: Pain - controlledNausea : NilEmesis : NilAmbulating : not yetFlatus : +veBowel Movement : +ve , one bloody BMOBJECTIVE:BP 153/67 Pulse 96 Temp 36.9 ?C (98.5 ?F) (Oral) Resp 16 Ht 182.9cm (6') Wt 91.8 kg (202 lb 6.1 oz) SpO2 95% BMI 27.45 kg/o1Uepqpv/Output Summary (Last 24 hours) at 03/27/17 1156Last data filed at 03/27/17 1148 Gross per 24 hourIntake 585 mlOutput 1790 mlNet -1205 mlAbdomen: Appropriately tender. Distension - nilIncision: wound clean , dry , intactDrains: SSADate 03/26/17 0700 - 03/27/17 0659Shift 4189-7138 7828-1800 7409-2489 24 Hour TotalINTAKE PO 60 60 60 180 PO 60 60 60 180 IV 308 291 599 LR 308 291 599 Shift Total 368 351 60 779OUTPUT Urine 250 076 786 0952 Tube Output ( Indwelling Urinary Catheter 03/25/17 1520 Lake 16Fr) 250 506 120 0198 Emesis 0 0 0 Emesis (ml) 0 [...] 25 mL syringe 12.5 g INTRAVENOUS PRNfentaNYL CLEANING AND WASHING EQUIPMENT OPERATOR 20 mcg/mL in NaCl 0.9% 100 mL [...] q 12 HCBC, BMP, MG, PHOSRecent Labs 2 638 03/25/1809WBC 6.37 16.21* 15.61* 8.57HB 7.9* 10.2* 10.0* [...] for input(s): APTT, INR in the last 66064 hours.Invalid input(s): ETFIHXIKBEPB89 year old male POD# 2 s/p Laparoscopic adhesiolysis, Open sigmoidcolectomy + BICYCLE RACER , small bowel resection x2, Appendectomy, Drainage ofpelvic abscess for diverticulitis , hemoglobin noted , no active bleedingnoted , will continue to monitor otherwise expected postoperative recoverythus far .PLAN:- FEN/GI: Keep NPO , ice chips and meds only , possible clear today willdiscuss with staff- ID (ABX): nil- Possible d/c lake today- VTE Prophylaxis: chemoprophylaxis, SCDs- Routine surgical care: IS, OOB- Dispo : RNF for now- Will discuss plan with staff*A review of daily goals, interventions, and plan of care with themultidisciplinary team and patient has been conducted. The patient?sconcerns have been addressed and he/she agrees to proceed with today?splan of care.Jyoti SamuelPGY1, General Surgery Normal [facility] Phosphoruson 03-27-2017 Phosphate 2.8 mg/dL Normal 2.5-4.5 [facility] Comment on above: Performed By: #### C BCDIF ####[place] [address] Basic Metabolic Panlon 03-26 Anion gap 16 mmol/L Normal 9-18 [facility] Comment on above: Performed By: #### C BCDIF, BMP, MG1, PHOS ####[place] [address] Calcium 8.0 mg/dL Low 8.5-10.5 [facility] Comment on above: Performed By: #### C BCDIF, BMP, MG1, PHOS ####[place] [address] Chloride 102 mmol/L Normal 98-110 [facility] Comment on above: Performed By: #### C BCDIF, BMP, MG1, PHOS ####[place] [address] CO2 21 mmol/L Low 23-32 [facility] Comment on above: Performed By: #### C BCDIF, BMP, MG1, PHOS ####[place] [address] Creatinine 2.63 mg/dL High 0.70-1.40 [facility] Comment on above: Performed By: #### C BCDIF, BMP, MG1, PHOS ####[place] [address] eGFR (non-black) 26 . Low >60 [facility] Comment on above: Performed By: #### C BCDIF, BMP, MG1, PHOS ####[place] [address] eGFR (non-black) 31 mL/min/{1.73_m2} Low >60 [facility] Comment on above: Performed By: #### C BCDIF, BMP, MG1, PHOS ####[place] [phone] [place] [phone] Glucose mass conc 177 mg/dL High 65-100 [facility] Comment on above: Performed By: #### C BCDIF, BMP, MG1, PHOS ####[place] [phone] Potassium molar conc 4.7 mmol/L Normal 3.5-5.0 [facility] Comment on above: Performed By: #### C BCDIF, BMP, MG1, PHOS ####[place] [address] Sodium 139 mmol/L Normal 135-146 [facility] Comment on above: Performed By: #### C BCDIF, BMP, MG1, PHOS ####[place] [address] Urea nitrogen 34 mg/dL High 10-25 [facility] Comment on above: Performed By: #### C BCDIF, BMP, MG1, PHOS ####[place] [phone] CASE MGT INIT ASSCORBYon 2017 CASE MGT INIT ALETHA HNO ID: [id number] thor: Linh BaiHoly Redeemer Health SystemSu BravouloService: Care ManagementAuthor Type: Social WorkerType: Care Mgt Initial AssessmentFiled: 03/26/2017 1:47 PMNote Text:CARE MANAGEMENT: ASSESSMENT AND DISCHARGE PLANSERVICE DATE: 03/26/2017SERVICE TIME: 1:10 PMPRIMARY CARE PHYSICIAN:Nohemi Phoenix, ZAHIDAhone: [phone] STATUS: InpatientPOTENTIAL DISCHARGE PLANSHomePatient/Representat andres Stated Goals: To get wellHealth Insurance: Supermed Plus/[employer] [place] Access PPOLiving Arrangement: HomeLives With: Spouse and DaughterFinancial Resources: Retired - Per Pt he retired at age 46 w/gov'tPrimary Contact:Extended Emergency Contact InformationPrimary Emergency Contact: Sepideh HouAddress: [address], [place] [address]Oahf Qgyocpmv: SpouseSupportive: YesOther Important Patient Contacts: NoneCAREGIVER ASSESSMENT:Caregiver [...] 1 s/p Laparoscopicadhesiolysis, Open sigmoid colectomy + BICYCLE RACER , small bowel resection x2,Appendectomy, Drainage of [...] days? NoHas the Patient Been in a Snf Facility in the Past 30 days? NoFREEDOM OF CHOICE EXPLAINED:Yes PtMyron HouPreference: Home/self careHANDOFF COMMUNICATION:Primary Care Physician: Dr. Ricardo Phoenix NKLU met with Pt bedside. Pt Spouse and family present. Pt AANDOx4. CMintroduced self and role of CM. Per Pt he lives home w/spouse and dtr andIPTA w/ADL's. 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 Per Pt he uses [facility] in [place], [place]. Pt spouse inquired onprocess of FMLA although per Pt children the family is able to rotate anyhelp Pt may need going home. CM discussed transitional care w/nursing andJosefina TAYLOR. Pt anticipated home no skilled needs. Pt spouse totransport Pt home when medically cleared. CM will continue to beavailable.SIGNATURE: QUYNH Bassett PATIENT NAME: Leida HouDATE: March 26, 2017 : 1:27 PM PAGER/CONTACT #: [phone] Normal [facility] CBC and Differentialon 03-26 Abs Baso <0.03 Normal <0.11 [facility] Comment on above: Performed By: #### C BCDIF, BMP, MG1, PHOS ####[place] [phone] [phone] Abs Concordia 0.84 k/uL Normal <0.87 [facility] Comment on above: Performed By: #### C BCDIF, BMP, MG1, PHOS ####[place] [phone] [place], [place] [phone] Abs Neut 13.93 k/uL High 1.45-7.50 [facility] Comment on above: Performed By: #### C BCDIF, BMP, MG1, PHOS ####[place] [phone] Basophils/100 WBC Auto (Bld) 0.0 % Normal [facility] Comment on above: Performed By: #### C BCDIF, BMP, MG1, PHOS ####[place] [phone] DTYPE Auto Diff Normal [facility] Comment on above: Performed By: #### C BCDIF, BMP, MG1, PHOS ####[place] [address] Eosinophils 10*3/uL Normal <0.46 [facility] Comment on above: Performed By: #### C BCDIF, BMP, MG1, PHOS ####[place] [address] Eosinophils/100 leukocytes 0.0 % Normal [facility] Comment on above: Performed By: #### C BCDIF, BMP, MG1, PHOS ####[place] [address] Erythrocyte distribution width Auto Ratio (RBC) 13.6 % Normal 11.5-15.0 [facility] Comment on above: Performed By: #### C BCDIF, BMP, MG1, PHOS ####[place] [address] Erythrocytes (RBC) 3.52 10*6/uL Low 4.20-6.00 [facility] Comment on above: Performed By: #### C BCDIF, BMP, MG1, PHOS ####[place] [address] Hematocrit (HCT) 30.1 % Low 39.0-51.0 [facility] Comment on above: Performed By: #### C BCDIF, BMP, MG1, PHOS ####[place] [address] Hemoglobin mass conc (Bld) 10.2 g/dL Low 13.0-17.0 [facility] Comment on above: Performed By: #### C BCDIF, BMP, MG1, PHOS ####[place] [address] Lymphocytes 1.44 10*3/uL Normal 1.00-4.00 [facility] Comment on above: Performed By: #### C BCDIF, BMP, MG1, PHOS ####[place] [phone] Lymphocytes/100 leukocytes 8.9 % Normal [facility] Comment on above: Performed By: #### C BCDIF, BMP, MG1, PHOS ####[place] [phone] MCH 29.0 pG Normal 26.0-34.0 [facility] Comment on above: Performed By: #### C BCDIF, BMP, MG1, PHOS ####[place] [phone] MCHC mass conc (RBC) 33.9 g/dL Normal 30.5-36.0 [facility] Comment on above: Performed By: #### C BCDIF, BMP, MG1, PHOS ####[place] [phone] MCV 85.5 fL Normal 80.0-100.0 [facility] Comment on above: Performed By: #### C BCDIF, BMP, MG1, PHOS ####[place] [phone] Monocytes/100 leukocytes 5.2 % Normal [facility] Comment on above: Performed By: #### C BCDIF, BMP, MG1, PHOS ####[place] [phone] Neutrophils/100 WBC Auto (Bld) 85.9 % Normal [facility] Comment on above: Performed By: #### C BCDIF, BMP, MG1, PHOS ####[place] [phone] Platelet mean volume (PMV) 11.1 fL Normal 9.0-12.7 [facility] Comment on above: Performed By: #### C BCDIF, BMP, MG1, PHOS ####[place] [phone] Platelets 131 10*3/uL Low 150-400 [facility] Comment on above: Performed By: #### C BCDIF, BMP, MG1, PHOS ####[place] [phone] WBC (Leukocytes) 16.21 10*3/uL High 3.70-11.00 [facility] Comment on above: Performed By: #### C BCDIF, BMP, MG1, PHOS ####[place] [phone] Abs Baso <0.03 Normal <0.11 [facility] Comment on above: Performed By: #### C BCDIF ####[address] Abs Concordia 0.72 k/uL Normal <0.87 [facility] Comment on above: Performed By: #### C BCDIF ####[address] Abs Neut 13.93 k/uL High 1.45-7.50 [facility] Comment on above: Performed By: #### C BCDIF ####[address] Basophils/100 WBC Auto (Bld) 0.0 % Normal [facility] Comment on above: Performed By: #### C BCDIF ####[address] DTYPE Auto Diff Normal [facility] Comment on above: Performed By: #### C BCDIF ####[place] [phone] Eosinophils 10*3/uL Normal <0.46 [facility] Comment on above: Performed By: #### C BCDIF ####[place] [phone] Eosinophils/100 leukocytes 0.0 % Normal [facility] Comment on above: Performed By: #### C BCDIF ####[place] [phone] Erythrocyte distribution width Auto Ratio (RBC) 13.4 % Normal 11.5-15.0 [facility] Comment on above: Performed By: #### C BCDIF ####[place] [phone] Erythrocytes (RBC) 3.47 10*6/uL Low 4.20-6.00 [facility] Comment on above: Performed By: #### C BCDIF ####[place] [phone] Hematocrit (HCT) 29.6 % Low 39.0-51.0 [facility] Comment on above: Performed By: #### C BCDIF ####[place] [phone] Hemoglobin mass conc (Bld) 10.0 g/dL Low 13.0-17.0 [facility] Comment on above: Performed By: #### C BCDIF ####[place] [phone] Lymphocytes 0.96 10*3/uL Low 1.00-4.00 [facility] Comment on above: Performed By: #### C BCDIF ####[place] [phone] Lymphocytes/100 leukocytes 6.1 % Normal [facility] Comment on above: Performed By: #### C BCDIF ####[place] [phone] MCH 28.8 pG Normal 26.0-34.0 [facility] Comment on above: Performed By: #### C BCDIF ####[place] [phone] MCHC mass conc (RBC) 33.8 g/dL Normal 30.5-36.0 [facility] Comment on above: Performed By: #### C BCDIF ####[place] [phone] MCV 85.3 fL Normal 80.0-100.0 [facility] Comment on above: Performed By: #### C BCDIF ####[place] [phone] Monocytes/100 leukocytes 4.6 % Normal [facility] Comment on above: Performed By: #### C BCDIF ####[place] [phone] Neutrophils/100 WBC Auto (Bld) 89.3 % Normal [facility] Comment on above: Performed By: #### C BCDIF ####[place] [phone] Platelet mean volume (PMV) 11.2 fL Normal 9.0-12.7 [facility] Comment on above: Performed By: #### C BCDIF ####[place] [phone] Platelets 131 10*3/uL Low 150-400 [facility] Comment on above: Performed By: #### C BCDIF ####[place] [phone] WBC (Leukocytes) 15.61 10*3/uL High 3.70-11.00 [facility] Comment on above: Performed By: #### C BCDIF ####[place] [phone] [place] [phone] Magnesiumon 03-26-2017 Magnesium 1.9 mg/dL Normal 1.7-2.6 [facility] Comment on above: Performed By: #### C BCDIF, BMP, MG1, PHOS ####[place] [phone] NURSING PROGon 03-26-2017 NURSING PROG HNO ID: [id number] thor: Pauline (Rn) Wainwright, RNService: NursingAuthor Type: Registered NurseType: Nursing Progress NoteFiled: 03/26/2017 5:09 PMNote Text: Nursing Progress NotePatient Name: Leida HouMRN: [id number] Location: [place] [address]/[id number] ____Daily Note:Pt A+Ox3, speech clear, CODY. Midline [...] low 100s. Pulse ox 96% on RA. 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 Pt reports adequate pain control. Ambulated 3 laps inhalls thus far. Safety maintained, will continue with plan of care.This note was completed by: Pauline Paniagua RN [facility] NURSING PROG HNO ID: [id number] thor: Pattie (Adam) Saman, JENAROervice: (none)Author Type: Registered NurseType: Nursing Progress NoteFiled: 03/25/2017 10:51 PMNote Text: Nursing Progress NotePatient Name: Leida HouMRN: [id number] Location: [address]/[id number] ____Transfer Note:Patient transferred into room/unit PK321 at 2215. Actions taken: Nofurther actions taken at this time, bed locked in lowest position, calllight within reach, will continue to monitor.This note was completed by: Pattie Davison RN [facility] PROGRESSon 03-26-2017 PROGRESS HNO ID: [id number] thor: Jyoti Turner (Res) GamaleldinService: ColorectalAuthor Type: ResidentType: Progress NotesFiled: 03/26/2017 7:53 AMNote Text: COLORECTAL SURGERY PROGRESS NOTEName: Leida HouMRN: [id number]# 1 s/p Laparoscopic adhesiolysis, Open sigmoid colectomy + BICYCLE RACER ,small bowel resection x2, Appendectomy, Drainage of pelvic abscess fordiverticulitisSUBJECTIVE: Pain - controlledNausea : NilEmesis : NilAmbulating : not yetFlatus : +veBowel Movement : NilOBJECTIVE:BP 104/70 Pulse 108 Temp 36.7 ?C (98 ?F) (Oral) Resp 18 Ht 182.9cm (6') Wt 92.8 kg (204 lb 9.4 oz) SpO2 100% BMI 27.75 kg/s4Ogxpsa/Output Summary (Last 24 hours) at 03/26/17 0750Last data filed at 03/26/17 0743 Gross per 24 hourIntake 3018 mlOutput 795 mlNet 2223 mlAbdomen: Appropriately tender. Distension - nilIncision: dressing clean , dry , intactDrains: SSADate 03/25/17 0700 - 03/26/17 0659Shift 0506-0732 2220-8540 0255-8301 24 Hour TotalINTAKE IV 1768 1768 LR 1768 1768 Other 1250 1250 OR 250 250 PACU ([facility] Only) 1000 1000 Shift Total 1250 1768 [...] 25 mL syringe 12.5 g INTRAVENOUS PRNfentaNYL CLEANING AND WASHING EQUIPMENT OPERATOR 20 mcg/mL in NaCl 0.9% 100 mL [...] q 12 HCBC, BMP, MG, PHOSRecent Labs 03/26/1801WBC 16.21* 15.61* 8.57HB 10.2* 10.0* 14.6HCT 30.1* 29.6* 41.7PLT 131* 131* 126*NA 139 -- --K 4.7 -- --CHLOR 102 -- --CO2 21* -- --BUN 34* -- --CREAT 2.63* -- --GLUC 177* -- --CA 8.0* -- --MG 1.9 -- --P 6.7* -- --Liver Function, Amylase, AND LipaseRecent Labs LACT 1.5CoagsNo results for input(s): APTT, INR in the last 80088 hours.Invalid input(s): NKFIBGQINHMX18 year old male POD# 1 s/p Laparoscopic adhesiolysis, Open sigmoidcolectomy + BICYCLE RACER , small bowel resection x2, Appendectomy, Drainage [...] agrees to proceed with today?splan of care.Jyoti Dumontjose aPGY1, General SurgeryFebruary 20177:50 AM Normal [facility] PROGRESS HNO ID: [id number] thor: Jeannine (VIRGILIO Hernandezervice: General SurgeryAuthor Type: ResidentType: Progress NotesFiled: 03/26/2017 1:24 AMNote Text:Leida OconnellermiasFV-[id number]/AP-PC0U-65Ha stoperative CheckSurgerySubjective:Pain well-controlled. No N/V.Denies CP/SOB/palpitations/visual changes/weakness/otherObject andres:Vitals: BP (!) 83/47 Pulse 103 Temp 36.4 ?C (97.6 ?F) (Axillary) Resp 18 Ht 182.9 cm (6') Wt 88.7 kg (195 lb 8.8 oz) SpO2 97% BMI26.52 kg/l4Vqubyfj: no distress, laying comfortably in bed, alert and orientedPulmonary: non-labored breathingAbdomen: soft, non-distended, expected incisional tendernessIncision(s): intact and dryAssessment:51 year old male POD 0 S/P open sigmoid colectomy, SBR x2, appendectomy,and DAHLIA.Pain well-controlled, exam appropriate, patient BPs running 70-80s/40-50s.Plan:- Continue routine post-operative care- Will give 1 L fluid bolus to see if BP responds to fluids- STAT Lamar Jung MDGeneral Surgery, QVN4Qlurc: 860099:23 AM 03/26/2017*Please page General Surgery on-call pager [phone] after 6pm and onweekends. Normal [facility] Phosphoruson 03-26-2017 Phosphate 6.7 mg/dL High 2.5-4.5 [facility] Comment on above: Performed By: #### C BCDIF, BMP, MG1, PHOS ####[facility] [place], [place] [phone] ABG Complete Eval FOR WEST U SE ONLYon 03-25-2017 Base Excess Negative Normal [facility] Comment on above: Result Comment: -3 t o 3 Performed By: #### A BGRTC ####[place] [address] Bicarbonate (HCO3) 18 mmol/L Low 22-26 [facility] Comment on above: Performed By: #### A BGRTC ####[place] [address] Calcium 1.16 mmol/L Normal 1.15-1.35 [facility] Comment on above: Performed By: #### A BGRTC ####[place] [address] Chloride 110 mmol/L High 98-107 [facility] Comment on above: Performed By: #### A BGRTC ####[place] [address] CO2 34 mm Hg Low 35-48 [facility] Comment on above: Performed By: #### A BGRTC ####[place] [address] CO2 19 mmol/L Low 22.0-28.0 [facility] Comment on above: Performed By: #### A BGRTC ####[place] [address] Glucose mass conc 145 mg/dL High 65-100 [facility] Comment on above: Performed By: #### A BGRTC ####[place] [address] Hematocrit (HCT) 38 % Low 42.0-52.0 [facility] Comment on above: Performed By: #### A BGRTC ####[place] [address] Hemoglobin mass conc (Bld) 12.2 g/dL Low 14-18 [facility] Comment on above: Performed By: #### A BGRTC ####[place] [phone] Hemoglobin mass conc (Bld) 0.8 % Normal 0.4-1.5 [facility] Comment on above: Performed By: #### A BGRTC ####[place] [address] Hemoglobin mass conc (Bld) 96 % Normal 94-100 [facility] Comment on above: Performed By: #### A BGRTC ####[place] [phone] Hemoglobin mass conc (Bld) 1.2 % Normal <2.0 [facility] Comment on above: Performed By: #### A BGRTC ####[place] [phone] Lactate 1.5 mmol/L Normal 0.4-2.0 [facility] Comment on above: Performed By: #### A BGRTC ####[place] [phone] O2 Administered 21.0 Normal [facility] Comment on above: Performed By: #### A BGRTC ####[address] O2 saturation 97 % Normal 90-98 [facility] Comment on above: Performed By: #### A BGRTC ####[place] [phone] Oxygen in arterial blood 101 mm Hg High 80-100 [facility] Comment on above: Performed By: #### A BGRTC ####[place] [phone] pH of blood 7.34 [pH] Low 7.35-7.45 [facility] Comment on above: Performed By: #### A BGRTC ####[place] [phone] PO2FI FOR WEST USE ONLY 481 mmHG Normal 400-500 [facility] Comment on above: Performed By: #### A BGRTC ####[place] [phone] Potassium molar conc 4.6 mmol/L Normal 3.5-5.0 [facility] Comment on above: Performed By: #### A BGRTC ####[facility] [place], [place] [phone] Sodium 135 mmol/L Normal 135-145 [facility] Comment on above: Performed By: #### A BGRTC ####[facility] [place], [place] [phone] ANES Padmini 03-25-2017 ANES POST HNO ID: [id number] thor: Jeison Plataervice: AnesthesiologyAuthor Type: AnesthesiologistType: Anesthesia PostOpFiled: 03/25/2017 7:38 PMNote Text:POST ANESTHESIA EVALUATION NOTESERVICE DATE: 03/25/2017SERVICE TIME: 7:38 PMDOB: 1965Vitals: [id number]: 124/71Pulse: 88Resp: 16Temp: (!) 35.9 ?C (96.6 [...] 25, 2017 : 7:38 PM PAGER/CONTACT #: [phone] [facility] ANES PREOPon 03-25-2017 ANES PREOP HNO ID: [id number] thor: Luis Anguloervice: Pain ManagementAuthor Type: AnesthesiologistType: Anesthesia PreOpFiled: 03/25/2017 10:33 AMNote Text:REGIONAL ANESTHESIOLOGY DAY OF SURGERY NOTEPATIENT NAME: Leida HouMRN: [id number]: 1965Procedure(s) (LRB):LAPAROSCOPIC COLECTOMY SIGMOID COLON W/ COLORECTAL [...] for this basename:Hb,HCT,K,Plt,PTSEC, APTT,INR,Creat,hcg,uhcgEKG:R eviewed LVH, NSRVitals: [id number]: 124/71Pulse: 88Resp: 16Temp: (!) 35.9 ?C (96.6 [...] protocol withpatient and benefits of low opioid anesth.EPIC Chart ReviewACTIVE PROBLEM LISTSmall Bowel ObstructionNo past medical history on file.No past surgical history on file.No family history on file.Social History:Social HistorySubstance Use Topics- Smoking status: Former Smoker- Smokeless tobacco: Current User- Alcohol use Not on fileNo current facility-administered medications on file prior to encounter.No current outpatient prescriptions on file prior to encounter.Inpatient medications reviewed in [facility].I have interviewed and examined the patient. I have reviewed the medicalrecord and/or the pre-anesthesia evaluation, pertinent labs, and testresults.Significant changes in the patient's condition since the History andPhysical, not otherwise documented in primary service progress notes: NoThis contains updated information obtained within 48 hours ofSurgery/Procedure.SIGNATUR E: Luis Arthur MD PATIENT NAME: Leida Esposito: March 25, 2017 : 9:53 AM PAGER/CONTACT #: [facility] BRIEF OP NOTon 03-25-2017 BRIEF OP NOT HNO ID: [id number] thor: Ritchie Stone (Fel)Service: ColorectalAuthor Type: FellowType: Brief Op NoteFiled: 03/25/2017 7:14 PMNote Text:BRIEF OPERATIVE NOTE - COLORECTAL SURGERYLog ID: [id number]/Procedure Date: 03/25/2017Incision/Procedure Start Time: 3:25 PMIncision Close/Procedure End Time:Surgeon(s) and Integrity Assessor(s):Surgeon(s) and Role: * Pelon Cortez - Primary [...] 25, 2017 : 7:12 PM PAGER/CONTACT #: [phone] Normal [facility] CBC and Differentialon 03-25 Abs Baso <0.03 Normal <0.11 [facility] Comment on above: Performed By: #### C BCDIF ####[place] [address] Abs [place] 0.51 k/uL Normal <0.87 [facility] Comment on above: Performed By: #### C BCDIF ####[place] [address] Abs Neut 6.39 k/uL Normal 1.45-7.50 [facility] Comment on above: Performed By: #### C BCDIF ####[place] [address] Basophils/100 WBC Auto (Bld) 0.1 % Normal [facility] Comment on above: Performed By: #### C BCDIF ####[place] [address] DTYPE Auto Diff Normal [facility] Comment on above: Performed By: #### C BCDIF ####[place] [address] Eosinophils 0.11 10*3/uL Normal <0.46 [facility] Comment on above: Performed By: #### C BCDIF ####[place] [address] Eosinophils/100 leukocytes 1.3 % Normal [facility] Comment on above: Performed By: #### C BCDIF ####[place] [address] Erythrocyte distribution width Auto Ratio (RBC) 13.2 % Normal 11.5-15.0 [facility] Comment on above: Performed By: #### C BCDIF ####[place] [address] Erythrocytes (RBC) 4.89 10*6/uL Normal 4.20-6.00 [facility] Comment on above: Performed By: #### C BCDIF ####[place] [address] Hematocrit (HCT) 41.7 % Normal 39.0-51.0 [facility] Comment on above: Performed By: #### C BCDIF ####[address] Hemoglobin mass conc (Bld) 14.6 g/dL Normal 13.0-17.0 [facility] Comment on above: Performed By: #### C BCDIF ####[address] Lymphocytes 1.55 10*3/uL Normal 1.00-4.00 [facility] Comment on above: Performed By: #### C BCDIF ####[address] Lymphocytes/100 leukocytes 18.1 % Normal [facility] Comment on above: Performed By: #### C BCDIF ####[address] MCH 29.9 pG Normal 26.0-34.0 [facility] Comment on above: Performed By: #### C BCDIF ####[address] MCHC mass conc (RBC) 35.0 g/dL Normal 30.5-36.0 [facility] Comment on above: Performed By: #### C BCDIF ####[place] [address] MCV 85.3 fL Normal 80.0-100.0 [facility] Comment on above: Performed By: #### C BCDIF ####[place] [address] Monocytes/100 leukocytes 6.0 % Normal [facility] Comment on above: Performed By: #### C BCDIF ####[address], [place] [phone] Neutrophils/100 WBC Auto (Bld) 74.5 % Normal [facility] Comment on above: Performed By: #### C BCDIF ####[facility] [place], [place] [phone] Platelet mean volume (PMV) 10.8 fL Normal 9.0-12.7 [facility] Comment on above: Performed By: #### C BCDIF ####[facility] [place] [address] [phone] Platelets 126 10*3/uL Low 150-400 [facility] Comment on above: Performed By: #### C BCDIF ####[facility] [place], [place] [phone] WBC (Leukocytes) 8.57 10*3/uL Normal 3.70-11.00 [facility] Comment on above: Performed By: #### C BCDIF ####[facility] [place], [place] [phone] Confirm Blood Typeon 018 ABO/RH(D) Positive Normal [facility] Comment on above: Performed By: #### C ONABO ####[facility] [place], [place] [phone] HISTORY PHYSICALon 8 HISTORY PHYSICAL HNO ID: [id number] thor: Ritchie Stone (Fel)Service: ColorectalAuthor Type: FellowType: [...] March 25, 2017 : 2:56 PM PAGER: [phone] [facility] NURSING PROGon 03-25-2017 NURSING PROG HNO ID: [id number] thor: Stephanie (Rn) Janet RNService: (none)Author Type: Registered NurseType: Nursing Progress NoteFiled: 03/25/2017 4:56 PMNote Text: Nursing Progress NotePatient Name: Leida HouMRN: [id number] Location: [place] [address]/[id number] ____Daily Note:1540- family notified of start of [id number] family updatedThis note was completed by: Stephanie Gonzales RN [facility] OPERATIVE NOon 03-25-2017 OPERATIVE NO HNO ID: [id number] thor: Pelon Chaservice: ColorectalAuthor Type: PhysicianType: Operative ReportFiled: 04/02/2017 3:06 PMNote Text:[facility] - Operative ReportLEIDA HOUDOB: 1965 AGE: 51 SEX: MMRN: [id number] ACCTNUM: [id number] SVC: INTM LOCATION: [id number] PHYSICIAN: Pelon Cortez M.D.DATE OF PROCEDURE: 03/25/2017PREOPERATIVE DIAGNOSIS: Severe diverticulitis and bowel obstruction.POSTOPERATIVE DIAGNOSIS: Severe diverticulitis and bowel obstruction.NAME OF OPERATION:1. 87047, proctosigmoidectomy, anterior low pelvic anastomosis.2. 01895, small-bowel resection with primary anastomosis.3. 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 We did a takedown of the splenic flexure.5. Omental pedicle flap.6. Flexible sigmoidoscopy.SURGEON: Pelon Cortez M.D.C++ QUANT DEVELOPER: NONEANESTHESIA:PROCEDURE: Mr. Hou was brought to the [...] 8 cm of small bowel and a sxht-gv-rlpl anastomosis wasperformed and closing with the TA [...] transferred to Recovery in good condition.Pelon Cortez M.D.SurgeryBC:[id number] :03/27/2017jhD: 03/26/2017 08:59:28T: 03/26/2017 18:45:31Job #: [id number] Normal [facility] SURGICAL PATHOLOGYon 018 SURGICAL PATHOLOGY ADDENDUM PRESENT [facility]: [id number] Physician: PELON CORTEZ MD FINAL DIAGNOSIS1. Portion [...] macrophages, acute serositis, and fibrousadhesions.- Benign lymph nodes.JEL/nahun 03/30/20175714CMXVKOO3. The presence of a fistula tract as [...] chromogenicin-situ hybridization tests have been determined by [facility] Pathology [facility] Laboratory Medicine [place] ([facility]) vicky manner consistent with CLIA requirements. One or more of these tests havenot been cleared or approved by the FDA. [facility] is regulated under CLIA asqualified to perform high-complexity testing. These tests are used forclinical purposes. They should not be regarded as investigational or forresearch.JEL/kll 03/31/2017Addendum Pathologist: Blake Fuentes M.D.Electronic Signature CLINICAL DATASMALL BOWEL OBSTRUCTIONINTRAOPERATIVE CONSULT DIAGNOSISFSA1: Sigmoid colon - Fibrosis, organizing granulation tissue and benigncolonic type mucosa. (Dr. Gaston)Intraoperative diagnosis performed at [facility], [address] [place], [place] [address]TCYYQ DESCRIPTIONA. Received fresh for frozen section diagnosis [...] lumen is narrowed first segment of bowel, E2guaaukcsn first segment of bowel, C4 cross section vessels first segment ofbowel, C5 perpendicular margin second segment of bowel, C6 area of boweladhered to itself, C7 second segment of bowel serosal adhesions, C8 crosssection vessels second segment of bowel, C9 perpendicular margin thirdsegment of bowel, C10 serosal adhesions third segment of bowel, S65-O93otbploqg thickened first segment of bowel, C19-C21 bowel [...] possibleperforated diverticulum, D3-D4 diverticula, D5 serosal adhesions, D6-N9yawyk segment of bowel perpendicular margins, D8 lymph nodes, D9 -C54nchggvhi abscessed area, D11-D13 additional sections.BF/dss 03/26/2017 Gross examination performed at [place] [address]Patient ID #: [id number] [id number] Report: 03/31/2017Date of Procedure: 03/25/2017Date of Receipt: 03/25/2017Submitted by: PELON CORTEZ MDLocation: [id number] interpretation performed at [facility], [address] [place] [address]. Normal [facility] Comment on above: Performed By: #### P ATHS ####[place] [address] Type and Screenon 03-25-2017 ABO/RH(D) Positive Normal [facility] Comment on above: Performed By: #### T SCR ####[address] [phone] Antibody Screen Negative Normal [facility] Comment on above: Performed By: #### T SCR ####[address] [phone] PROGRESSon 03-18-2017 PROGRESS HNO ID: [id number] thor: Pelon Chaservice: (none)Author Type: PhysicianType: Progress [...] the surgery within 1 week's time. Normal [facility] CNOVon 03-17-2017 CNOV Office Visit ([facility]) ----LEIDA HOU ([id number]) 1965 MDate Time Provider Department03/17/17 9:40 AM PELON CORTEZ [facility] During your visit today, we recorded the [...] Signed 03/12/2017 3:58 PM by Ana Luisa Matthews SEC Added automatically from request for surgery [id number] Outpatient Prescriptions:carvedilol (COREG) 25 mg tablet Take [...] requiring dialysis. No history of symptoms or problems.PUBLIC MESSAGE SERVICE SUPERVISOR: Negative for abnormal vaginal bleeding, abnormal vaginal [...] within 1 week's time.Referring Provider: NEO SOLOMON [[id number]]Allergies As of Date: 03/17/2017 Noted Allergy ReactionCODEINE 03/17/2017 14 - Other: See Comments Comments: Pt. States causes nauseaDate Reviewed: 03/17/2017Reviewed by: Sera Mcdonough Ma - Fully AssessedReason for Visit: Consult [173]Primary Visit Diagnosis:SBO (small bowel obstruction) [K56.609] Other Visit Diagnoses:Diverticulosis of large intestine without hemorrhage [K57.30] Preoperative examination [Z01.818]Order(s):TYPE + SCREEN,30 DAY [SJQINV89] Order #: [id number] FUTURE CONFIRM BLOOD TYPE [SQCONABO] Order #: [id number] FUTURE CBC + DIFF [SQCBCDIF] Order #: [id number] FUTURE COMP METABOLIC PANEL [SQCMP] Order #: [id number] FUTURE HANDP FOR SURGERY [P5291MYK] Order #: [id number] metroNIDAZOLE (FLAGYL) 500 mg tabletTake 1 tablet [...] to surgery. Cosign accepted by PELON CORTEZ MD[[id number]] on 03/18/2017 11:27 AM NEOMYCIN 500 MG TABLET 6 ta* 0 03/17/2017 03/18/2017 Route: ORAL Sig: Take 2 tablets by mouth three times daily for 1 day. Take 2 tablet at 6pm, 7pm, and 11pm the evening prior to surgery. Cosign accepted by PELON CORTEZ MD[[id number]] on 03/18/2017 11:27 AMEncounter Number: [id number] Status:Closed by PELON CORTEZ MD on 03/18/17 [facility] PROGRESSon 03-17-2017 PROGRESS HNO ID: [id number] thor: Lashell (Adam) Jacobo, RNService: (none)Author Type: Registered NurseType: Progress NotesFiled: 03/18/2017 11:27 AMNote Text:New Patient ConsultREASON FOR VISITLeida Hou is a 51 year old male who [facility]. My final [...] YEN Added automatically from request for surgery [id number] Outpatient Prescriptions:carvedilol (COREG) 25 mg tablet Take [...] requiring dialysis. No history of symptoms or problems.PUBLIC MESSAGE SERVICE SUPERVISOR: Negative for abnormal vaginal bleeding, abnormal vaginal [...] CVA tendernessCEZAR MorelandATE: 03/17/17TIME: 10:20 AM Normal [facility] PROGRESS HNO ID: [id number] thor: Ritchie Arnold (Fel): (none)Author Type: FellowType: Progress NotesFiled: 03/18/2017 11:27 [...] 6 pack beer/3-4 days a week Normal [facility] NURSING PROGon 03-13-2017 NURSING PROG HNO ID: [id number] thor: Annemarie (Adam) Ana Turk: (none)Author Type: Registered NurseType: Nursing Progress NoteFiled: 03/13/2017 11:47 AMNote Text:03/13 11:[address] Dr[address] cortez's office and spoke with Ana Luisa and julius. is to be admitted the day before surgery and will have all testingdone on admit. She stated No PACC needed. ADAM Shepherd Normal [facility] HOSPon 03-12-2017 HOSP Patient:Misty Hou RN: [...] LowHEMA* 41.7 % 03/25/2017 51.0 39.0Progress Notes ([facility]):Ritchie Stone MD 03/18/2017 11:27 AM SignedCC:Referred for [...] By Small bowel obstruction 03/12/2017 Ana Luisa Matthews Sec No Overview Signed 03/12/2017 3:58 PM by Ana Luisa Matthews SEC Added automatically from request for surgery [id number] Outpatient Prescriptions:carvedilol (COREG) 25 mg tablet Take [...] requiring dialysis. No history of symptoms or problems.PUBLIC MESSAGE SERVICE SUPERVISOR: Negative for abnormal vaginal bleeding, abnormal vaginal [...] 6' 0 (1.83m) Wt 194 lb (88.0kg) [id number]% BMI 26.31 kg/(m2).General Appearance: Well appearing, alert, [...] grossly intact.Abdomen: Normal abdominal exam, Negative CVA tendernessCZEAR MorelandATE: 03/17/17TIME: 10:20 Betzy Cortez MD 03/18/2017 [...] the surgery within 1 week's time. Normal [facility] Vital Signs Date Time Vital Sign Value Performing Clinician Facility 10-05-2024 09:08-0400 Body height 182.9 cm Zenia Summers CONTRACTS REPRESENTATIVE Work Phone: [facility] 10-05-2024 09:08-0400 Body mass index (BMI) [Ratio] 27.67 kg/m2 Zenia Summers NP Work Phone: [facility] 10-05-2024 09:08-0400 Body weight 92.53 kg Zenia Summers NP Work Phone: [facility] 10-05-2024 09:08-0400 Diastolic blood pressure 78 mm[Hg] Zenia Summers NP Work Phone: [facility] 10-05-2024 09:08-0400 Heart rate 85 /min Zenia Summers NP Work Phone: [facility] 10-05-2024 09:08-0400 Respiratory rate 16 /min Zenia Summers NP Work Phone: [facility] 10-05-2024 09:08-0400 SaO2% (BldA) [Mass fraction] 98 % Zenia Summers NP Work Phone: [facility] 10-05-2024 09:08-0400 Systolic blood pressure 138 mm[Hg] Zenia Summers CONTRACTS REPRESENTATIVE Work Phone: [facility] 05-16-2024 14:09-0400 Body height 182.9 cm Nohemi Phoenix MD Work Phone: [facility] 05-16-2024 14:09-0400 Body mass index (BMI) [Ratio] 26.99 kg/m2 Nohemi Phoenix MD Work Phone: [facility] 05-16-2024 14:09-0400 Body weight 90.27 kg Nohemi Phoenix MD Work Phone: [facility] 05-16-2024 14:09-0400 Diastolic blood pressure 84 mm[Hg] Nohemi Phoenix MD Work Phone: [facility] 05-16-2024 14:09-0400 Heart rate 89 /min Nohemi Phoenix MD Work Phone: [facility] 05-16-2024 14:09-0400 Respiratory rate 17 /min Nohemi Phoenix MD Work Phone: [facility] 05-16-2024 14:09-0400 SaO2% (BldA) [Mass fraction] 98 % Nohemi Phoenix MD Work Phone: [facility] 05-16-2024 14:09-0400 Systolic blood pressure 188 mm[Hg] Nohemi Phoenix MD Work Phone: [facility] 03-30-2024 15:55-0500 Body height 182.9 cm Chevy Herrera CONTRACTS REPRESENTATIVE Work Phone: [facility] 03-30-2024 15:55-0500 Body mass index (BMI) [Ratio] 26.72 kg/m2 Chevy Herrera CONTRACTS REPRESENTATIVE Work Phone: [facility] 03-30-2024 15:55-0500 Body weight 89.36 kg Chevy Herrera CONTRACTS REPRESENTATIVE Work Phone: [facility] 03-30-2024 15:55-0500 Diastolic blood pressure 78 mm[Hg] Chevy Herrera CONTRACTS REPRESENTATIVE Work Phone: [facility] 03-30-2024 15:55-0500 Heart rate 63 /min Chevy Herrera CONTRACTS REPRESENTATIVE Work Phone: [facility] 03-30-2024 15:55-0500 Respiratory rate 17 /min Chevy Herrera CONTRACTS REPRESENTATIVE Work Phone: [facility] 03-30-2024 15:55-0500 SaO2% (BldA) [Mass fraction] 97 % Chevy Herrera CONTRACTS REPRESENTATIVE Work Phone: [facility] 03-30-2024 15:55-0500 Systolic blood pressure 138 mm[Hg] Chevy Herrera CONTRACTS REPRESENTATIVE Work Phone: [facility] 03-04-2024 10:51-0500 Body height 182.9 cm Yonatan Dolce DPM FACFAS Work Phone: [facility] 03-04-2024 10:51-0500 Body mass index (BMI) [Ratio] 27.26 kg/m2 Yonatan Dolce DPM FACFAS Work Phone: [facility] 03-04-2024 10:51-0500 Body weight 91.17 kg Yonatan Dolce DPM FACFAS Work Phone: [facility] 03-04-2024 10:51-0500 Diastolic blood pressure 74 mm[Hg] Yonatan Dolce DPM FACFAS Work Phone: [facility] 03-04-2024 10:51-0500 Heart rate 77 /min Yonatan Dolce DPM FACFAS Work Phone: [facility] 03-04-2024 10:51-0500 Systolic blood pressure 126 mm[Hg] Yonatan Dolce DPM FACFAS Work Phone: [facility] 02-19-2024 10:17-0500 Body height 182.9 cm Yonatan Dolce DPM FACFAS Work Phone: [facility] 02-19-2024 10:17-0500 Body mass index (BMI) [Ratio] 27.26 kg/m2 Yonatan Dolce DPM FACFAS Work Phone: [facility] 02-19-2024 10:17-0500 Body weight 91.17 kg Yonatan Dolce DPM FACFAS Work Phone: [facility] 02-19-2024 10:17-0500 Diastolic blood pressure 77 mm[Hg] Yonatan Dolce DPM FACFAS Work Phone: [facility] 02-19-2024 10:17-0500 Heart rate 72 /min Yonatan Dolce DPM FACFAS Work Phone: [facility] 02-19-2024 10:17-0500 Systolic blood pressure 128 mm[Hg] Yonatan Dolce DPM FACFAS Work Phone: [facility] 02-12-2024 10:48-0500 Body height 182.9 cm Yonatan Dolce DPM FACFAS Work Phone: [facility] 02-12-2024 10:48-0500 Body mass index (BMI) [Ratio] 27.26 kg/m2 Yonatan Dolce DPM FACFAS Work Phone: [facility] 02-12-2024 10:48-0500 Body weight 91.17 kg Yonatan Dolce DPM FACFAS Work Phone: [facility] 02-12-2024 10:48-0500 Diastolic blood pressure 77 mm[Hg] Yonatan Dolce DPM FACFAS Work Phone: [facility] 02-12-2024 10:48-0500 Heart rate 73 /min Yonatan Dolce DPM FACFAS Work Phone: [facility] 02-12-2024 10:48-0500 Systolic blood pressure 128 mm[Hg] Yonatan Dolce DPM FACFAS Work Phone: [facility] 02-09-2024 14:43-0500 Body height 182.9 cm Casi Dolce DPM FACFAS Work Phone: [facility] 02-09-2024 14:43-0500 Body mass index (BMI) [Ratio] 27.67 kg/m2 Casi Dolce DPM FACFAS Work Phone: [facility] 02-09-2024 14:43-0500 Body weight 92.53 kg Casi Dolce DPM FACFAS Work Phone: [facility] 02-09-2024 14:43-0500 Diastolic blood pressure 75 mm[Hg] Casi Dolce DPM FACFAS Work Phone: [facility] 02-09-2024 14:43-0500 Heart rate 74 /min Casi Dolce DPM FACFAS Work Phone: [facility] 02-09-2024 14:43-0500 Systolic blood pressure 129 mm[Hg] Casi Dolce DPM FACFAS Work Phone: [facility] 02-01-2024 08:52-0500 Body height 182.9 cm Yonatan Dolce DPM FACFAS Work Phone: [facility] 02-01-2024 08:52-0500 Body mass index (BMI) [Ratio] 27.67 kg/m2 Yonatan Dolce DPM FACFAS Work Phone: [facility] 02-01-2024 08:52-0500 Body weight 92.53 kg Yonatan Dolce DPM FACFAS Work Phone: [facility] 02-01-2024 08:52-0500 Diastolic blood pressure 75 mm[Hg] Yonatan Dolce DPM FACFAS Work Phone: [facility] 02-01-2024 08:52-0500 Heart rate 72 /min Yonatan Dolce DPM FACFAS Work Phone: [facility] 02-01-2024 08:52-0500 Systolic blood pressure 128 mm[Hg] Yonatan Dolce DPM FACFAS Work Phone: [facility] 01-25-2024 10:23-0500 Body height 182.9 cm Yonatan Dolce DPM FACFAS Work Phone: [facility] 01-25-2024 10:23-0500 Body mass index (BMI) [Ratio] 27.67 kg/m2 Yonatan Dolce DPM FACFAS Work Phone: [facility] 01-25-2024 10:23-0500 Body weight 92.53 kg Yonatan Dolce DPM FACFAS Work Phone: [facility] 01-25-2024 10:23-0500 Diastolic blood pressure 77 mm[Hg] Yonatan Dolce DPM FACFAS Work Phone: [facility] 01-25-2024 10:23-0500 Heart rate 70 /min Yonatan Dolce DPM FACFAS Work Phone: [facility] 01-25-2024 10:23-0500 Systolic blood pressure 130 mm[Hg] Yonatan Dolce DPM FACFAS Work Phone: [facility] 01-13-2024 12:14-0500 Body height 182.9 cm Yonatan Dolce DPM FACFAS Work Phone: [facility] 01-13-2024 12:14-0500 Body mass index (BMI) [Ratio] 27.67 kg/m2 Yonatan Dolce DPM FACFAS Work Phone: [facility] 01-13-2024 12:14-0500 Body weight 92.53 kg Yonatan Dolce DPM FACFAS Work Phone: [facility] 01-13-2024 12:14-0500 Diastolic blood pressure 75 mm[Hg] Yonatan Dolce DPM FACFAS Work Phone: [facility] 01-13-2024 12:14-0500 Heart rate 72 /min Yonatan Dolce DPM FACFAS Work Phone: [facility] 01-13-2024 12:14-0500 Systolic blood pressure 129 mm[Hg] Yonatan Dolce DPM FACFAS Work Phone: [facility] 01-08-2024 10:01-0500 Body height 182.9 cm Yonatan Dolce DPM FACFAS Work Phone: [facility] 01-08-2024 10:01-0500 Body mass index (BMI) [Ratio] 27.67 kg/m2 Yonatan Dolce DPM FACFAS Work Phone: [facility] 01-08-2024 10:01-0500 Body weight 92.53 kg Yonatan Dolce DPM FACFAS Work Phone: [facility] 01-08-2024 10:01-0500 Diastolic blood pressure 77 mm[Hg] Yonatan Stephendann DPM FACFAS Work Phone: [facility] 01-08-2024 10:01-0500 Heart rate 73 /min Yonatan Rosado DPM FACFAS Work Phone: [facility] 01-08-2024 10:01-0500 Systolic blood pressure 129 mm[Hg] Yonatan Rosado DPM FACFAS Work Phone: [facility] 01-07-2024 11:30-0500 Diastolic blood pressure 67 mm[Hg] Nohemi Phoenix MD Work Phone: [facility] 01-07-2024 11:30-0500 Heart rate 81 /min Nohemi Phoenix MD Work Phone: [facility] 01-07-2024 11:30-0500 Respiratory rate 20 /min Nohemi Phoenix MD Work Phone: [facility] 01-07-2024 11:30-0500 SaO2% (BldA) [Mass fraction] 96 % Nohemi Phoenix MD Work Phone: [facility] 01-07-2024 11:30-0500 Systolic blood pressure 130 mm[Hg] Nohemi Phoenix MD Work Phone: [facility] 01-07-2024 09:08-0500 Body temperature 98.4 [degF] Nohemi Phoenix MD Work Phone: [facility] 01-07-2024 08:40-0500 Inhaled oxygen flow rate 2 L/min Nohemi Phoenix MD Work Phone: [facility] 01-07-2024 06:44-0500 Body height 182.88 cm Nohemi Phoenix MD Work Phone: [facility] 01-07-2024 06:44-0500 Body weight 88.45 kg Nohemi Phoenix MD Work Phone: [facility] 01-06-2024 11:51-0500 Body height 182.88 cm [facility] 01-06-2024 11:51-0500 Body mass index (BMI) [Ratio] 26.4 kg/m2 [facility] 01-06-2024 11:51-0500 Body temperature 97.9 [degF] [facility] 01-06-2024 11:51-0500 Body weight 88.45 kg [facility] 01-06-2024 11:51-0500 Diastolic blood pressure 82 mm[Hg] [facility] 01-06-2024 11:51-0500 Heart rate 72 /min [facility] 01-06-2024 11:51-0500 Respiratory rate 16 /min [facility] 01-06-2024 11:51-0500 SaO2% (BldA) [Mass fraction] 97 % [facility] 01-06-2024 11:51-0500 Systolic blood pressure 132 mm[Hg] [facility] 01-04-2024 11:40-0500 Body height 182.9 cm Yonatan Rosado DPM FACFAS Work Phone: [facility] 01-04-2024 11:40-0500 Body mass index (BMI) [Ratio] 27.67 kg/m2 Yonatan Dolce DPM FACFAS Work Phone: [facility] 01-04-2024 11:40-0500 Body weight 92.53 kg Yonatan Mitchellce DPM FACFAS Work Phone: [facility] 01-04-2024 11:40-0500 Diastolic blood pressure 75 mm[Hg] Yonatan Mitchellce DPM FACFAS Work Phone: [facility] 01-04-2024 11:40-0500 Heart rate 71 /min Yonatan Rosado DPM FACFAS Work Phone: [facility] 01-04-2024 11:40-0500 Systolic blood pressure 128 mm[Hg] Yonatan Rosado DPM FACFAS Work Phone: [facility] 12-28-2023 10:36-0500 Body height 182.9 cm Yonatan Mitchellce DPM FACFAS Work Phone: [facility] 12-28-2023 10:36-0500 Body mass index (BMI) [Ratio] 27.67 kg/m2 Yonatan Dolce DPM FACFAS Work Phone: [facility] 12-28-2023 10:36-0500 Body weight 92.53 kg Yonatan Dolce DPM FACFAS Work Phone: [facility] 12-28-2023 10:36-0500 Diastolic blood pressure 75 mm[Hg] Yonatan Dolce DPM FACFAS Work Phone: [facility] 12-28-2023 10:36-0500 Heart rate 76 /min Yonatan Dolce DPM FACFAS Work Phone: [facility] 12-28-2023 10:36-0500 Systolic blood pressure 130 mm[Hg] Yonatan Dolce DPM FACFAS Work Phone: [facility] 12-23-2023 09:27-0400 Body height 182.9 cm Yonatan Dolce DPM FACFAS Work Phone: [facility] 12-23-2023 09:27-0400 Body mass index (BMI) [Ratio] 27.67 kg/m2 Yonatan Dolce DPM FACFAS Work Phone: [facility] 12-23-2023 09:27-0400 Body weight 92.53 kg Yonatan Dolce DPM FACFAS Work Phone: [facility] 12-23-2023 09:27-0400 Diastolic blood pressure 77 mm[Hg] Yonatan Dolce DPM FACFAS Work Phone: [facility] 12-23-2023 09:27-0400 Heart rate 84 /min Yonatan Dolce DPM FACFAS Work Phone: [facility] 12-23-2023 09:27-0400 Systolic blood pressure 129 mm[Hg] Yonatan Dolce DPM FACFAS Work Phone: [facility] 12-21-2023 10:07-0400 Body height 182.9 cm Yonatan Dolce DPM FACFAS Work Phone: [facility] 12-21-2023 10:07-0400 Body mass index (BMI) [Ratio] 27.67 kg/m2 Yonatan Rosado DPM FACFAS Work Phone: [facility] 12-21-2023 10:07-0400 Body weight 92.53 kg Yonatan Pavithra DPM FACFAS Work Phone: [facility] 12-21-2023 10:07-0400 Diastolic blood pressure 78 mm[Hg] Yonatan Pavithra DPM FACFAS Work Phone: [facility] 12-21-2023 10:07-0400 Heart rate 86 /min Yonatan Rosado DPM FACFAS Work Phone: [facility] 12-21-2023 10:07-0400 Systolic blood pressure 128 mm[Hg] Yonatan Rosado DPM FACFAS Work Phone: [facility] 12-16-2023 11:00-0400 Body height 182.9 cm Zenia Summers CONTRACTS REPRESENTATIVE Work Phone: [facility] 12-16-2023 11:00-0400 Body mass index (BMI) [Ratio] 27.67 kg/m2 Zenia Summers CONTRACTS REPRESENTATIVE Work Phone: [facility] 12-16-2023 11:00-0400 Body weight 92.53 kg Zenia Summers CONTRACTS REPRESENTATIVE Work Phone: [facility] 12-16-2023 11:00-0400 Diastolic blood pressure 82 mm[Hg] Zenia Summers CONTRACTS REPRESENTATIVE Work Phone: [facility] 12-16-2023 11:00-0400 Heart rate 78 /min Zenia Summers CONTRACTS REPRESENTATIVE Work Phone: [facility] 12-16-2023 11:00-0400 SaO2% (BldA) [Mass fraction] 97 % Zenia Summers CONTRACTS REPRESENTATIVE Work Phone: [facility] 12-16-2023 11:00-0400 Systolic blood pressure 130 mm[Hg] Zenia Summers CONTRACTS REPRESENTATIVE Work Phone: [facility] Encounters Encounter Date Encounter Type Care Provider Facility Start: 11-09-2024 End: 11-09-2024 Bamboo flowsheet Esthela Chester Burak PA Work Phone: [facility] Start: 11-09-2024 End: 11-09-2024 Bamboo flowsheet Esthela J Burak PA Work Phone: [facility] Start: 11-09-2024 End: 11-09-2024 Office outpatient new 30 minutes Esthela Briggs Burak PA Work Phone: [facility] Comment on above: Acute thoracic back pain, unspecified back pain laterality (Primary Dx); Muscle spasm of back Start: 11-09-2024 End: 11-09-2024 ambulatory ESTHELA SUMNER Not Available Start: 11-07-2024 ambulatory [facility] Start: 10-31-2024 End: 10-31-2024 Clinisync Result Encounter Nohemi Phoenix MD Work Phone: [facility] Unsolicited Start: 10-31-2024 End: 10-31-2024 Clinisync Result Encounter Nohemi Phoenix MD Work Phone: [facility] Unsolicited Start: 10-05-2024 End: 10-05-2024 Bamboo flowsheet Zenia Summers CONTRACTS REPRESENTATIVE Work Phone: [facility] Start: 10-05-2024 End: 10-05-2024 Bamboo flowsheet Zenia Summers CONTRACTS REPRESENTATIVE Work Phone: [facility] Start: 10-05-2024 End: 10-05-2024 ambulatory ZENIA SUMMERS Not Available Start: 10-05-2024 End: 10-05-2024 Office outpatient visit 25 minutes Zenia Summers CONTRACTS REPRESENTATIVE Work Phone: [facility] Comment on above: Muscle spasm of back (Primary Dx); Intercostal pain Start: 09-21-2024 ambulatory [facility] Start: 08-24-2024 ambulatory [facility] Start: 07-05-2024 End: 07-05-2024 ambulatory [facility] Start: 06-06-2024 ambulatory [facility] Start: 06-03-2024 ambulatory [facility] Start: 05-16-2024 End: 05-16-2024 Office outpatient visit 25 minutes Nohemi Phoenix MD Work Phone: [facility] Comment on above: Type 2 diabetes kailee itus with diabetic autonomic neuropathy, with long-term current use of insulin (CMS/[facility]) (Primary Dx); Type 2 diabetes mellitus with foot ulcer (CODE) ([facility]); Primary insomnia Start: 05-16-2024 End: 05-16-2024 ambulatory NOHEMI PHOENIX Not Available Start: 04-01-2024 ambulatory [facility] Start: 03-30-2024 End: 03-30-2024 Office outpatient visit 25 minutes Chevy Herrera CONTRACTS REPRESENTATIVE Work Phone: [facility] Comment on above: Acute bronchitis, un specified organism (Primary Dx); Acute cough; Hypertensive heart disease with heart failure (CMS/HCC); Gangrene, not elsewhere classified (CMS/HCC); Type 2 diabetes mellitus with foot ulcer (CODE) (CMS/[facility]); Non-pressure chronic ulcer 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 (CMS/HCC); Ventricular tachycardia, unspecified (CMS/HCC); Unspecified systolic (congestive) heart failure (CMS/HCC); Heart failure, unspecified (CMS/HCC); Chronic systolic (congestive) heart failure (CMS/HCC) Start: 03-30-2024 End: 03-30-2024 ambulatory CHEVY HERRERA Not Available Start: 03-30-2024 End: 03-30-2024 Bamboo teodora Herrera CONTRACTS REPRESENTATIVE Work Phone: [facility] Start: 03-30-2024 End: 03-30-2024 Bamboo teodora Herrera CONTRACTS REPRESENTATIVE Work Phone: [facility] Start: 03-10-2024 ambulatory [facility] Start: 03-09-2024 ambulatory TAMIKO WEEKS [facility] Start: 03-04-2024 End: 03-04-2024 Bamboo flowsheet Yonatan Zaida Mitchellce DPM FACFAS Work Phone: [facility] Start: 03-04-2024 End: 03-04-2024 Bamboo flowsheet Yonatan Zaida Dolce DPM FACFAS Work Phone: [facility] Start: 03-04-2024 End: 03-04-2024 Postop follow up visit related to original px Yonatan Zaida Mitchellce DPM FACFAS Work Phone: [facility] Comment on above: 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 (CMS/HCC) (Primary Dx); Amputation of left great toe (CMS/HCC) Start: 03-04-2024 End: 03-04-2024 ambulatory YONATAN Zaida DOLDANN Not Available Start: 02-19-2024 End: 02-19-2024 Bamboo flowsheet Yonatan Zaida Dolce DPM FACFAS Work Phone: [facility] Start: 02-19-2024 End: 02-19-2024 Bamboo flowsheet Yonatan Zaida Dolce DPM FACFAS Work Phone: [facility] Start: 02-19-2024 End: 02-19-2024 Patient encounter procedure Yonatan Zaida Mitchellce DPM FACFAS Work Phone: [facility] Comment on above: 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 (CMS/HCC) (Primary Dx); Amputation of left great toe (CMS/HCC); Gastrocnemius equinus of left lower extremity; Gastrocnemius equinus of right lower extremity Start: 02-19-2024 End: 02-19-2024 ambulatory YONATAN D DOLCE Not Available Start: 02-12-2024 End: 02-12-2024 Bamboo flowsheet Yonatan Zaida Dolce DPM FACFAS Work Phone: [facility] Start: 02-12-2024 End: 02-12-2024 Bamboo flowsheet Yonatan Zaida Dolce DPM FACFAS Work Phone: [facility] Start: 02-12-2024 End: 02-12-2024 Postop follow up visit related to original px Yonatan Rosado DPM FACFAS Work Phone: [facility] Comment on above: PAD (peripheral josiane ry disease) (CMS/HCC) (Primary Dx); Gangrene (CMS/HCC) Start: 02-12-2024 End: 02-12-2024 ambulatory YONATAN ROSADO Not Available Start: 02-11-2024 ambulatory [facility] Start: 02-09-2024 End: 02-09-2024 Patient encounter procedure Casimary alice Rosado DPM FACFAS Work Phone: [facility] [...] 02-09-2024 Office outpatient visit 15 minutes Yonatan Rosado DPM FACFAS Work Phone: [facility] Comment on above: 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 (CMS/HCC) (Primary Dx); PAD (peripheral artery disease) (CMS/HCC); Gangrene (CMS/HCC); Acute osteomyelitis of ankle and foot, left (CMS/HCC) Start: 02-09-2024 End: 02-09-2024 ambulatory YONATAN ROSADO Not Available Start: 02-08-2024 ambulatory [facility] Start: 02-01-2024 End: 02-01-2024 Bamboo flowsheet Yonatan Rosado DPM FACFAS Work Phone: [facility] Start: 02-01-2024 End: 02-01-2024 Bamboo flowsheet Yonatan Rosado DPM FACFAS Work Phone: [facility] Start: 02-01-2024 End: 02-01-2024 ambulatory YONATAN ROSADO Not Available Start: 02-01-2024 End: 02-01-2024 Office outpatient visit 15 minutes Yonatan Rosado DPM FACFAS Work Phone: [facility] Comment on above: 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 (CMS/HCC) (Primary Dx); PAD (peripheral artery disease) (CMS/HCC); Gangrene (CMS/HCC); Acute osteomyelitis of ankle and foot, left (CMS/HCC) Start: 01-28-2024 ambulatory [facility] Start: 01-25-2024 End: 01-25-2024 Bamboo flowsheet Yonatan Rosado DPM FACFAS Work Phone: [facility] Start: 01-25-2024 End: 01-25-2024 Bamboo flowsheet Yonatan Rosado DPM FACFAS Work Phone: [facility] Start: 01-25-2024 End: 01-25-2024 Office outpatient visit 15 minutes Yonatan Rosado DPM FACFAS Work Phone: [facility] Comment on above: 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 (CMS/HCC) (Primary Dx); PAD (peripheral artery disease) (CMS/HCC); Gangrene (CMS/HCC); 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, left (CMS/HCC) Start: 01-25-2024 End: 01-25-2024 ambulatory YONATAN ROSADO Not Available Start: 01-19-2024 End: 01-19-2024 ambulatory Esthela Fields Facility:[facility] Start: 01-18-2024 End: 01-18-2024 Lab Drop off Yonatan Carpenter [facility] Start: 01-18-2024 End: 01-18-2024 Telephone encounter Yonatan D Dolce DPM FACFAS Work Phone: [facility] Start: 01-18-2024 End: 01-18-2024 ambulatory Yonatan D Dolce Facility:[facility] Start: 01-13-2024 End: 01-13-2024 Bamboo flowsheet Yonatan D Dolce DPM FACFAS Work Phone: [facility] Start: 01-13-2024 End: 01-13-2024 Bamboo flowsheet Yonatan D Dolce DPM FACFAS Work Phone: [facility] Start: 01-13-2024 End: 01-13-2024 Telephone encounter Yonatan D Dolce DPM FACFAS Work Phone: [facility] Start: 01-13-2024 End: 01-13-2024 Office outpatient visit 25 minutes Yonatan D Dolce DPM FACFAS Work Phone: [facility] Comment on above: Gangrene (CMS/HCC) ( Primary Dx); PAD (peripheral artery disease) (CMS/HCC) Start: 01-13-2024 End: 01-13-2024 ambulatory YONATAN D DOLCE Not Available Start: 01-12-2024 ambulatory [facility] Start: 01-08-2024 End: 01-08-2024 Bamboo flowsheet Yonatan D Dolce DPM FACFAS Work Phone: [facility] Start: 01-08-2024 End: 01-08-2024 Bamboo flowsheet Yonatan D Dolce DPM FACFAS Work Phone: [facility] Start: 01-08-2024 End: 01-08-2024 ambulatory YONATAN D DOLCE Not Available Start: 01-08-2024 End: 01-08-2024 Office outpatient visit 25 minutes Yonatan D Dolce DPM FACFAS Work Phone: [facility] Comment on above: PAD (peripheral josiane ry disease) (CMS/HCC) (Primary Dx); Gangrene (CMS/HCC) Start: 01-07-2024 Non-patient / Non-visit Nohemi Phoenix MD Work Phone: [facility] Physician [facility] Work Phone: Start: 01-07-2024 End: 01-07-2024 Admission to same day surgery center Nohemi Phoenix MD Work Phone: [facility] Work Phone: Start: 01-07-2024 End: 01-07-2024 ambulatory Nohemi Phoenix MD Work Phone: [facility] Work Phone: Start: 01-06-2024 End: 01-06-2024 ambulatory [facility] Work Phone: Start: 01-06-2024 End: 01-06-2024 Patient encounter procedure [facility] Work Phone: Start: 01-04-2024 End: 01-04-2024 Bamboo flowsheet Yonaatn Rosado DPM FACFAS Work Phone: [facility] Start: 01-04-2024 End: 01-04-2024 Bamboo flowsheet Yonatan Roasdo DPM FACFAS Work Phone: [facility] Start: 01-04-2024 End: 01-04-2024 Office outpatient visit 25 minutes Yonatan Rosado DPM FACFAS Work Phone: [facility] Comment on above: PAD (peripheral josiane ry disease) ([facility]/HCC) (Primary Dx); 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, left ([facility]/HCC); Gangrene ([facility]/HCC) Start: 01-04-2024 End: 01-04-2024 ambulatory YONATAN ROSADO Not Available Start: 12-30-2023 ambulatory [facility] Start: 12-28-2023 End: 12-28-2023 Bamboo flowsheet Yonatan Rosado DPM FACFAS Work Phone: [facility] Start: 12-28-2023 End: 12-28-2023 Bamboo flowsheet Yonatan Zaida Dolce DPM FACFAS Work Phone: [facility] Start: 12-28-2023 End: 12-28-2023 Office outpatient visit 25 minutes Yonatan Rosado DPM FACFAS Work Phone: [facility] Comment on above: Acute osteomyelitis of ankle and foot, left ([facility]) (Primary Dx); Type II diabetes mellitus with neurological manifestations ([facility]); 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, left ([facility]); PAD (peripheral artery disease) ([facility]) Start: 12-28-2023 End: 12-28-2023 ambulatory YONATAN D DOLDANN Not Available Start: 12-23-2023 End: 12-23-2023 Bamboo flowsheet Yonatan Zaida Dolce DPM FACFAS Work Phone: [facility] Start: 12-23-2023 End: 12-23-2023 Bamboo flowsheet Yonatan Zaida Dolce DPM FACFAS Work Phone: [facility] Start: 12-23-2023 End: 12-23-2023 Patient encounter procedure Yonatan Rosado DPM FACFAS Work Phone: [facility] Comment on above: Type 2 diabetes kailee itus with diabetic autonomic neuropathy, with long-term current use of insulin ([facility]) (Primary Dx); 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, left ([facility]) Start: 12-23-2023 End: 12-23-2023 ambulatory YONATAN D DOLCE Not Available Start: 12-21-2023 End: 12-21-2023 Bamboo flowsheet Yonatan Zaida Dolce DPM FACFAS Work Phone: [facility] Start: 12-21-2023 End: 12-24-2023 Bamboo flowsheet Yonatan Zaida Dolce DPM FACFAS Work Phone: [facility] Start: 12-21-2023 End: 12-24-2023 Clinisync Result Encounter Yonatan Rosado DPM FACFAS Work Phone: [facility] External [facility] Unsolicited Start: 12-21-2023 End: 12-21-2023 Lab Drop off Yonatan Rosado [facility] Start: 12-21-2023 End: 12-21-2023 Office outpatient new [...] Start: 12-21-2023 End: 12-21-2023 ambulatory Yonatan Rosado Facility:[facility] Start: 12-16-2023 End: 12-16-2023 Office outpatient visit 25 minutes Zenia Summers CONTRACTS REPRESENTATIVE Work Phone: [facility] Comment on above: Callus (Primary Dx); Type 2 diabetes mellitus with diabetic autonomic neuropathy, with long-term current use of insulin (CMS/HCC); Toe infection; Diabetic polyneuropathy associated with type 2 diabetes mellitus (CMS/HCC); Thrombocytopenia, unspecified (CMS/HCC); Type 2 diabetes mellitus with hyperglycemia (CMS/HCC); Immunodeficiency due to conditions classified elsewhere ([facility]) Start: 12-16-2023 End: 12-16-2023 ambulatory ZENIA SUMMERS Not Available Start: 12-15-2023 ambulatory [facility] Start: 12-11-2023 ambulatory [facility] Start: 12-03-2023 ambulatory [facility] Start: 12-03-2023 Encounter for preprocedural cardiovascular examination [facility] Start: 11-25-2023 End: 11-25-2023 ambulatory ASHIA [facility] Start: 11-25-2023 End: 11-25-2023 Clinisync Result Encounter Generic External Data Provider [facility] Unsolicited Start: 11-25-2023 End: 11-25-2023 Clinisync Result Encounter Generic External Data Provider [facility] Unsolicited Start: 10-17-2021 End: 10-17-[address] JOSEFINA MARTINS Facility: Start: 10-18-2020 End: 10-19-2020 ambulatory NOHEMI PHOENIX Facility:[facility] Start: 04-07-2017 End: 04-07-2017 Ambulatory JOSEFINA Ware (CLAUDIA) SHARRI [facility] Start: 03-25-2017 End: 03-30-2017 Evaluation and management of inpatient PELON GREENFIELD [facility] Start: 03-17-2017 End: 03-17-2017 Ambulatory PELON JAY [facility] Procedures Date Procedure Procedure Detail Performing Clinician Start: 10-31-2024 CT CHEST WO CON Nohemi Phoenix MD Work Phone: Start: 05-16-2024 Hemoglobin glycosyla darrin a1c Nohemi Phoenix MD Work Phone: Start: 01-07-2024 Lower limb angiography Nohemi Phoenix MD Work Phone: Start: 12-21-2023 [facility] C WOUND Yonatan D Dol ce DPM FACFAS Work Phone: Start: 12-21-2023 Radex foot complete minimum 3 views Yonatan D Dolce DPM FACFAS Work Phone: Start: 12-16-2023 Hemoglobin glycosyla darrin a1c Zenia Summers NP Work Phone: Start: 11-25-2023 ALL BASIC METABOLIC PANEL Generic External Data Provider Start: 11-25-2023 ALL LIPID PROFILE (FASTING) Generic External Data Provider Plan of Treatment Date Care Activity Detail Author Start: 01-23-2025 Influenza vaccination Influenza Vacc ine (#1) [facility] Comment on above: Postponed from 10/24 (Other Medical Reasons) Start: 01-04-2025 End: 01-04-2025 Patient encounter procedure 01/04/2025 9:30 AM EST Office Visit [facility] [address] [place] [address] Esthela Sumner PA [address] [place] [address] [facility] Start: 11-09-2024 End: 11-09-2024 Patient encounter procedure 11/09/2024 9:30 AM EDT Office Visit [facility] [address] [place] [address] Esthela Sumner PA [address] [place] [address] Acute thoracic back pain, unspecified back pain laterality (Primary Dx); Muscle spasm of back; Acute pain of right shoulder [facility] Comment on above: Acute thoracic back pain, unspecified back pain laterality (Primary Dx); Muscle spasm of back; Acute pain of right shoulder Start: 10-24-2024 Influenza vaccination Influenza Vacc ine (#1) [facility] Start: 08-16-2024 Hemoglobin A1c measurement Diabetes: Hemoglobin A1C [facility] Start: 07-23-2024 Urine screening for protein Diabetes: Urine Protein Screening [facility] Start: 05-23-2024 End: 05-23-2024 Patient encounter procedure 05/23/2024 1:10 PM EDT Office Visit [facility] [address] [place] [phone] Yonatan Rosado, DPM FACFAS [address] [place] [address] [facility] Start: 05-06-2024 Glaucoma screening Diabetes: R etinopathy Screening [facility] Start: 04-01-2024 End: 04-01-2024 Patient encounter procedure 04/01/2024 10:20 AM EST Office Visit [facility] [address] [place] [id number] Yonatan Rosado, DPM FACFAS [address] [place] [address] [facility] Start: 03-30-2024 End: 03-30-2024 Patient encounter procedure 03/30/2024 4:30 PM EST Office Visit [facility] [address] [facility] [address] [place] [phone] Chevy Herrera, CONTRACTS REPRESENTATIVE [address] [place] [place] [address] Arrived [facility] Comment on above: Arrived Start: 03-17-2024 Hemoglobin A1c measurement Diabetes: Hemoglobin A1C [facility] Start: 03-04-2024 End: 03-04-2024 Patient encounter [...] EST Office Visit [facility] [address] [place] [address] Yonatan Rosado, DPM FACFAS [address] [place] [address] [facility] Start: 01-30-2024 Urine screening for protein Diabetes: Urine Protein Screening [facility] Start: 01-25-2024 End: 01-25-2024 Patient encounter procedure [facility] Comment on above: Arrived Start: 01-13-2024 End: 01-13-2024 Patient encounter procedure [facility] Comment on above: Arrived Start: 01-07-2024 [facility] Start: 12-28-2023 End: 12-27-2024 MR Foot - left WO contrast MR foot left wo IV contrast Imaging Routine Type II diabetes mellitus with neurological manifestations (CMS/HCC) Acute osteomyelitis of ankle and foot, left (CMS/HCC) Expected: 12/28/2023 (Approximate), Expires: 12/27/2024 [facility] Work Phone: Comment on above: Expected: 12/28/2023 (Approximate), Expires: 12/27/2024 Start: 12-28-2023 End: 02-27-2024 US.doppler Extremity arteries - bilateral for physiologic artery study at rest and with exercise VASC US PVR/SEGMENTAL PRESSURES LOWER Imaging Routine Type II diabetes mellitus with neurological manifestations ([facility]) PAD (peripheral artery disease) ([facility]) Expected: 12/28/2023 (Approximate), Expires: 02/27/2024 [facility] Comment on above: Expected: 12/28/2023 (Approximate), Expires: 02/27/2024 Start: 12-28-2023 End: 12-28-2023 Patient encounter procedure [facility] Comment on above: Arrived Start: 12-23-2023 End: 12-23-2023 Patient encounter procedure [facility] Comment on above: Arrived Start: 12-21-2023 End: 12-20-2024 Bacteria identified in Wound by Culture Wound culture Microbiology Routine Abscess of great toe of left foot Expected: 12/21/2023 (Approximate), Expires: 12/20/2024 [facility] Work Phone: Comment on above: Expected: 12/21/2023 (Approximate), Expires: 12/20/2024 Start: 12-21-2023 End: 12-21-2023 Patient encounter procedure 12/21/2023 10:00 AM EDT Office Visit [facility] [address] [place] [phone] Yonatan Rosado, DPM FACFAS [address] [place] [address] Type 2 diabetes mellitus with diabetic autonomic neuropathy, with long-term current use of insulin ([facility]); Callus; Toe infection [facility] Comment on above: Type 2 diabetes kailee itus with diabetic autonomic neuropathy, with long-term current use of insulin ([facility]); Callus; Toe infection Start: 10-29-2023 Hemoglobin A1c measurement Diabetes: Hemoglobin A1C [facility] Start: 10-25-2023 Influenza vaccination Influenza Vacc ine (#1) [facility] Patient Education Wound Care for Arterial Puncture (DC) Know your Meds [facility] Work Phone: Patient referral [facility] Work Phone: Immunizations Immunization Date Immunization Notes Care Provider Dre dawkinsty 10-16-2021 diphtheria, tetanus toxoids and pertussis vaccine Generic Provider [facility] 10-16-2021 tetanus toxoid, redu buffy diphtheria toxoid, and acellular pertussis vaccine, adsorbed Generic Provider [facility] 08-29-2017 tetanus toxoid, redu buffy diphtheria toxoid, and acellular pertussis vaccine, adsorbed Generic Provider [facility] Payers Date Payer Category Payer Self-pay 2021 [facility] BCBS [id number] 2021 Unknown BCBS BCBS [id number] 2021-Present [phone] [id number] [place], [place] [id number] [id number]. [id number] 2021 Unknown [id number] 1965 Unknown [id number] 2..840.1.075974.3.579.2. 647 1963 Unknown [id number] .0.1.896782.3.579.2. 593 1963 Unknown [id number] .840.1.818168.3.579.2. 727 1963 Unknown [id number] 2.16.840.1.789581.3.579.2. 727 1963 Unknown [id number] 2.16.840.1.886255.3.579.2. 72 1963 Unknown [id number] 2.16.840.1.404403.3.579.2. 1258 1963 Unknown [id number] 2.16.840.1.722806.3.579.2. 1258 1963 Unknown [id number] 2.16.840.1.754734.3.579.2. 1258 1963 Unknown [id number] 2.16.840.1.388564.3.579.2. 1258 1963 Unknown [id number] 2.16.840.1.001745.3.579.2. 1258 1963 Unknown [id number] 2.840.1.537045.3.579.2. 1258 1963 Unknown [id number] 2.16.840.1.810509.3.579.2. 1258 1963 Unknown [id number] 2.840.1.348310.3.579.2. 1258 1963 Unknown [id number] 2.16.840.1.744801.3.579.2. 1258 1963 Unknown [id number] 2.840.1.234299.3.579.2. 1258 1963 Unknown [id number] 2.16.840.1.055826.3.579.2. 1258 1963 Unknown [id number] 2.16.840.1.665514.3.579.2. 1258 1963 Unknown [id number] 2.16.840.1.226277.3.579.2. 1258 1963 Unknown [id number] 2.16.840.1.041654.3.579.2. 1258 1963 Unknown [id number] 2.16.840.1.530879.3.579.2. 1258 1963 Unknown [id number] 2.16.840.1.353778.3.579.2. 1258 1963 Unknown [id number] 2.16.840.1.672925.3.579.2. 1258 1963 Unknown [id number] 2.16.840.1.509968.3.579.2. 1258 1963 Unknown [id number] 2.16.840.1.551732.3.579.2. 1259 1959 Unknown [id number] Unknown [id number] Unknown [id number] 2.16.840.1.775901.3.579.2. 531 Unknown [id number] 2.16.840.1.770492.3.579.2. 531 Social History Date Type Detail Facility Start: 10-08-2022 Tobacco smoking stat [facility] Never smoked tobacco [facility] Start: 10-08-2022 Tobacco use and exposure User of smokeless tobacco [facility] History of tobacco use Chews Tobacco [facility] Start: 09-28-2023 End: 11-09-2024 Alcoholic beverage intake Ex-drinker (finding) [facility] Start: 09-28-2023 End: 10-05-2024 History of Social function [facility] Start: 09-28-2023 End: 10-05-2024 Tobacco use panel [facility] Start: 1965 Sex assigned at Not on file N [facility] Tobacco smoking status No Smokin g Status Entered [facility] Start: 01-06-2024 End: 01-07-2024 Tobacco smoking status COIS Ex-smoker (finding) [facility] Start: 01-06-2024 Sex Male (finding) [facility] Start: 1965 Sex Assigned At Male F [facility] Start: 01-07-2024 Sex Patient sex un known (finding) [facility] Medical Equipment Procedure Code Equipment Code Equipment Origin al Text Equipment Identifier Dates [id number], [id number], [id number] Start: 03-31-2023 Insulin Syringe-Needle U-100 (Bd Veo Insulin Syringe Uf) 1/2 mL 31 gauge x 15/64 syringe Start: 01-06-2024 Insulin Syringe-Needle U-100 (Bd Veo Insulin Syringe Uf) 1/2 mL 31 gauge x 15/64 syringe Start: 01-06-2024 Functional Status Date Assessment Result Facility 10-05-2024 Patient Health Quest ionnaire 2 item (PHQ-2) [Reported] [facility] Clinical Notes 11-25-2023 to 11-09-2024 CLAUDIA Lopez - 11/09/2024 9:30 AM Ivet Summers NP - 10/05/2024 9:00 AM Alondra Phoenix MD - 05/16/2024 2:40 PM Alondra Phoenix MD - 05/16/2024 2:00 PM EDTPatient Instructions Note Date & Type Note Facility 11-09-2024 History of Presen t illness Narrative Images from the original note were not included. Orthopedic Office note: NAME: Leida Hou : 1965 NEW PT WITH RIB PAIN - [facility]; TIZANIDINE/PREDNISONE/ CT CHEST 10/31/24 [facility]- C/O RT SIDED RIB PAIN- PT STATES IT STARTED AFTER HE WAS TRIMMING BUSHES AT HOME ~6WKS PT HAS PACEMAKER/DEFIBULATOR CT CHEST 10/31/24 [facility] PREDNISONE TIZANADINE PT STATES PAIN STARTED WITH RT ANTERIOR CHEST PAIN - PAIN DOES WRAP AROUND POSTERIOR RIBS/SCAPULA - +WAKES HS- PAIN IS CONSTANT- INCREASE PAIN WITH ACTIVITY- +TYLENOL/MOTRIN Physical Exam General Appearance: Normal. Respiratory: Full painless deep breaths without difficulty. No pleuritic pain noted. Cardiovascular: Capillary refill is less than 2 seconds. Musculoskeletal: Shoulder: Full range of motion and strength with rotator cuff testing. No pain. Medial lower scapular border: Point tenderness just inferior to the inferior angle adjacent to the thoracic spine. Mild muscle spasm present. Midline bony: No tenderness. Right paravertebral thoracic spine: Fine pain syndrome extending to underneath the nipple line at the sternum but not crossing the midline. Ribs: No palpable tenderness on deep compression. Latissimus dorsi: No pain with stressing. Compartments: Soft. Skin: No evidence of rash or excoriation. Neurological: Normal. Orders Placed This Encounter Procedures Ambulatory referral to Physical Therapy Standing Status: Future Expected Date: 11/09/2024 Expiration Date: 05/09/2025 Referral Priority: Routine Referral Type: Consultation Referral Reason: Consult and Treat Referred to Provider: [facility] Requested Specialty: Physical Therapy Number of Visits Requested: 1 Ambulatory referral to Pain Medicine Standing Status: Future Expected Date: 11/09/2024 Expiration Date: 05/09/2025 Referral Priority: Routine Referral Type: Consultation Referral Reason: Specialty Services Required Referred to Provider: Gordo Paula MD Requested Specialty: Pain Medicine Number of Visits Requested: 1 Procedures Results CTA chest 10/31/24: TINY BILATERAL PULMONARY NODULES. OBSTRUCTIVE LUNG DISEASE. NO ACUTE FINDINGS. - Imaging: - CT of the chest: Reviewed ICD-10-CM 1. Acute thoracic back pain, unspecified back pain laterality M54.6 Ambulatory referral to Physical Therapy Ambulatory referral to Pain Medicine 2. Muscle spasm of back M62.830 Ambulatory referral to Orthopaedic Surgery Ambulatory referral to Physical Therapy Ambulatory referral to Pain Medicine Assessment & Plan T5 radiculopathy There is a 25% improvement with time and previous steroid and muscle relaxant treatment. The CT of the chest was reviewed, and MRI is not an option due to the cardiac device. Symptom onset included a slight pop or rib shift in the affected area, suggesting a possible slipped rib. Chiropractic or DO manipulative treatment was discussed. Diagnostic plan: Formal physical therapy will be initiated to address muscle spasms. A referral to pain management will be made for a potential T5 transforaminal nerve block. Treatment plan: Topical capsaicin cream may be used, with risks and benefits discussed, including the need to wash hands after application. Clinical decision making: If symptoms worsen or new symptoms develop, he should go to the ER given his prior cardiac history and symptoms. Follow-up: Follow-up in 8 weeks. Questions answered in laymen terms at the bedside. The diagnosis, home exercise plan and any ongoing restrictions/ recommendations reviewed. If unable to be reached in office, I recommend evaluation at nearest Emergency Room if any symptoms worsened or new symptoms develop for requiring urgent evaluation. Visit was preformed using [employer]-fighter pilot speech recognition. documented in this encounter [facility] 10-05-2024 History of Presen t illness Narrative [...] TBI is abnormal CHF (congestive heart failure) ([facility]) Cholelithiasis 2017 Diabetes mellitus ([facility]) Diverticulitis 2017 partial obstruction H/O [...] dysfunction, mild to moderate mitral regurgitaion Hypertension [place] (myocardial infarction) ([facility]) 2010 Past Surgical History: Procedure [...] follow-ups on file. documented in this encounter [facility] 05-16-2024 History of Presen t illness Narrative Associated Problem(s): Type 2 diabetes mellitus with diabetic autonomic (poly)neuropathy (CMS/HCC) Patient was only doing 3 units and [...] mild to moderate mitral regurgitaion Hypertension (CMS/HCC) [place] (myocardial infarction) (CMS/HCC) 2010 Past Surgical History: Procedure Laterality Date ABCESS DRAINAGE 2010 on colon CARDIAC SURGERY 2010 06 bypass CARDIAC SURGERY 2021 right heart catheterization b/l angiography, severe 3 vessel cad with occlusion papent 4/5 bypass grafts(papent carrero to diagonal 2, patent svg to diagonal1, patent radial graft to om1, patent svg to the pda CATARACT EXTRACTION, BILATERAL [address] cortez diverticulosis scar tissue COLONOSCOPY 2016 [...] 2 diabetes mellitus with foot ulcer (CODE) ([facility]) Relevant Medications insulin aspart (NovoLOG FLEXPEN) 100 UNIT/ML pen Other Relevant Orders POCT glycosylated hemoglobin (Hb A1C) docked device Follow up in about 4 weeks (around 06/13/2024) for Recheck. documented in this encounter [facility] 03-30-2024 History of Presen t illness Narrative Images from the original note were not included. Subjective Patient ID: eLida Hou is a 58 y.o. male who [...] mild to moderate mitral regurgitaion Hypertension (CMS/HCC) [place] (myocardial infarction) (CMS/HCC) 2010 Past Surgical History: Procedure Laterality Date ABCESS DRAINAGE 2011 on colon CARDIAC SURGERY 2010 06 bypass [...] tablet continues. 4. Gangrene, not elsewhere classified (CMS/[facility]) Sp amputation, stable. 5. Type 2 diabetes mellitus with foot ulcer (CODE) (CMS/[facility]) Stable. insulin Aspart (NovoLOG), Jardiance 25 MG, Continuous Glucose Sensor (FreeStyle Shazia 2 Sensor) misc continues. 6. Non-pressure chronic ulcer 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 (CMS/HCC) 7. Ventricular tachycardia, unspecified (CMS/HCC) aspirin (ASPIR) 81 MG EC tablet continues. 8. Unspecified systolic (congestive) heart failure (CMS/HCC) 9. Heart failure, unspecified (CMS/HCC) 10. Chronic systolic (congestive) heart failure (CMS/HCC) No follow-ups on file. documented in this encounter [facility] 03-30-2024 Instructions Chevy Herrera NP - 03/30/2024 4:30 PM EST Zithromax added Albuterol added Hycodan syrup added documented in this encounter [facility] 03-04-2024 History of Presen t illness Narrative [...] TBI is abnormal CHF (congestive heart failure) ([facility]) Cholelithiasis 2017 Diabetes mellitus ([facility]) Diverticulitis 2017 partial obstruction H/O [...] dysfunction, mild to moderate mitral regurgitaion Hypertension ([facility]/HCC) [place] ([place]) ([facility]) 2010 Medications: Current Outpatient Medications: [...] < 3 seconds Digits 1-5 bilateral NEURO: [place] 5.07 monofilament was intact B/L. Vibratory [...] well SUSANA Davis documented in this encounter [facility] 02-19-2024 History of Presen t illness Narrative [...] great toe left documented in this encounter [facility] 02-12-2024 History of Presen t illness Narrative Patient had a small dehiscence of his wound underwent a delayed primary closure performed by Dr. Gomez last week. Incision sites well coapted no signs of infection continue with dressing changes as ordered in his surgical shoe follow up 2 weeks denies fever chills nausea vomiting documented in this encounter [facility] 02-09-2024 History of Presen t illness Narrative [...] TBI is abnormal CHF (congestive heart failure) ([facility]/HCC) Cholelithiasis 2017 Diabetes mellitus ([facility]/HCC) Diverticulitis 2017 partial obstruction H/O CT scan [...] mild to moderate mitral regurgitaion Hypertension (CMS/HCC) [place] (my[place] infarction) (CMS/HCC) 2010 Medications: Current Outpatient Medications: amLODIPine (Norvasc) [...] < 3 seconds Digits 1-5 bilateral NEURO: [place] 5.07 monofilament was intact B/L. Vibratory [...] draping. SUSANA Navas documented in this encounter [facility] 02-09-2024 History of Presen t illness Narrative [...] TBI is abnormal CHF (congestive heart failure) ([facility]) Cholelithiasis 2017 Diabetes mellitus ([facility]) Diverticulitis 2017 partial obstruction H/O [...] dysfunction, mild to moderate mitral regurgitaion Hypertension ([facility]) [place] (my[place]) ([facility]) 2010 Medications: Current Outpatient Medications: amLODIPine (Norvasc) 5 MG tablet, Take 5 mg by mouth in the morning., Disp: , Rfl: aspirin (ASPIR) 81 MG EC tablet, 1 (one) time each day at the same time., Disp: , Rfl: carvedilol (Coreg) 25 MG tablet, every 12 (twelve) hours., Disp: , Rfl: Continuous Glucose Sensor (FreeStyle Shazia 2 Sensor) [facility] Inject 1 each under the skin every [...] < 3 seconds Digits 1-5 bilateral NEURO: [place] 5.07 monofilament was intact B/L. Vibratory [...] pain ASSESSMENT 1. PAD (peripheral artery disease) ([facility]) 2. Gangrene ([facility]) 3. Type II diabetes mellitus with neurological manifestations ([facility]) 4. Acute osteomyelitis of ankle and foot, left ([facility]) PLAN Today we applied a dry sterile dressing with betadine to the incision site. Sutures removed today may begin to shower he is not to soak the foot. Awaiting his toe filler follow up next week to have that dispensed SUSANA Davis documented in this encounter [facility] 02-01-2024 History of Presen t illness Narrative [...] TBI is abnormal CHF (congestive heart failure) ([facility]) Cholelithiasis 2017 Diabetes mellitus ([facility]) Diverticulitis 2017 partial obstruction H/O [...] dysfunction, mild to moderate mitral regurgitaion Hypertension ([facility]) [place] (my[place]) ([facility]) 2010 Medications: Current Outpatient Medications: [...] the evening., Disp: , Rfl: Tuberculin Syringe ([employer] Tuberculin Safety Syr) 25G X 5/8 1 [...] < 3 seconds Digits 1-5 bilateral NEURO: [place] 5.07 monofilament was intact B/L. Vibratory [...] Type II diabetes mellitus with neurological manifestations ([facility]) 4. Acute osteomyelitis of ankle and foot, left ([facility]) PLAN Today we applied a [...] start partial weight-bearing in his surgical shoe SUSNAA Davis documented in this encounter [facility] 01-25-2024 History of Presen t illness Narrative [...] TBI is abnormal CHF (congestive heart failure) ([facility]) Cholelithiasis 2017 Diabetes mellitus ([facility]) Diverticulitis 2017 partial obstruction H/O [...] dysfunction, mild to moderate mitral regurgitaion Hypertension ([facility]) [place] (my[place]) ([facility]) 2010 Medications: Current Outpatient Medications: [...] Disp: 20 tablet, Rfl: 0 Tuberculin Syringe ([employer] Tuberculin Safety Syr) 25G X 5/8 1 [...] < 3 seconds Digits 1-5 bilateral NEURO: [place] 5.07 monofilament was intact B/L. Vibratory [...] Type II diabetes mellitus with neurological manifestations ([facility]) 4. 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 Thank you. [facility] 01-18-2024 Miscellaneous Notes Formattin g of this note might be different from the original. The prescription has been sent to the pharmacy. Thank you. documented in this encounter [facility] 01-13-2024 Telephone encount er Note Phone #: [phone] Insurance: Payor: BCBS / Plan: BCBS / Product Type: *No Product type* / Preferred Date/Time: First Available [x] ROCIO [x] Patient Name: Leida Hou : 1965 Surgeon: Dr. Yonatan Rosado [x] Dr. Casi Rosado [] Location: [facility] [x] [facility] [] [facility] [] Procedure(s): amputation left great toe CPT Code(s): 66361 Diagnosis: ICD-10-CM 1. Gangrene ([facility]) I96 2. PAD (peripheral artery disease) ([facility]) I73.9 Procedure Time: 30 min [...] Clearance: Cardiology [] Rheumatology [] Other [] [facility] 01-13-2024 Miscellaneous Notes Formattin g of this note is different from the original. Phone #: [phone] Insurance: Payor: BCBS / Plan: BCBS / Product Type: *No Product type* / Preferred Date/Time: First Available [x] ROCIO [x] Patient Name: Leida Hou : 1965 Surgeon: Dr. Yonatan Rosado [x] Dr. Casi Rosado [] Location: [facility] [x] [facility] [] [facility] [] Procedure(s): amputation left great toe CPT Code(s): 43946 Diagnosis: ICD-10-CM 1. Gangrene ([facility]) I96 2. PAD (peripheral artery disease) ([facility]) I73.9 Procedure Time: 30 min [...] [] Other [] documented in this encounter [facility] 01-13-2024 History of Presen t illness Narrative [...] [place] [address] CT Scan Report Signed Patient: LEIDA HOU MR#: [id number] : 1965 Acct:[id number] Age/Sex: 58 / M ADM Date: 12/30/23 [...] TBI is abnormal CHF (congestive heart failure) ([facility]) Cholelithiasis 2017 Diabetes mellitus ([facility]) Diverticulitis 2017 partial obstruction H/O [...] dysfunction, mild to moderate mitral regurgitaion Hypertension ([facility]) [place] (my[place]) ([facility]) 2010 Medications: Current Outpatient Medications: [...] Continuous Glucose Sensor (FreeStyle Shazia 2 Sensor) [facility] Inject 1 each under the skin every [...] are palpable bilateral, no edema noted Neuro: [place] 5.07 monofilament intact, vibratory sensation intact Derm: [...] They have consented for the above-stated procedure. Yonatan Rosado DPM FACFAS documented in this encounter [facility] 01-08-2024 History of Presen t illness Narrative [...] Information CT FOOT LT WO CON The [address] [address] [address] Scan Report Signed Patient: LEIDA HOU MR#: [id number] : 1965 Acct:[id number] Age/Sex: 58 / M ADM Date: 12/30/23 [...] TBI is abnormal CHF (congestive heart failure) ([facility]) Cholelithiasis 2017 Diabetes mellitus ([facility]) Diverticulitis 2017 partial obstruction H/O [...] dysfunction, mild to moderate mitral regurgitaion Hypertension ([facility]) [place] (my[place] infarction) ([facility]) 2010 Medications: Current Outpatient Medications: [...] Continuous Glucose Sensor (FreeStyle Shazia 2 Sensor) [facility] Inject 1 each under the skin every [...] are palpable bilateral, no edema noted Neuro: [place] 5.07 monofilament intact, vibratory sensation intact Derm: [...] prescribed. SUSANA Davis documented in this encounter [facility] 01-07-2024 Procedure note [facility] 01-06-2024 Evaluation note Diagnosis Onset Date Resolution Gangrene associated with diabetes mellitus acute January 06, 2024 11:25am [facility] Work Phone: 1(836) 690-714011-11-2024 History of Present illness Narrative* SUSANA Davis [...] [place] [address] CT Scan Report Signed Patient: LEIDA HOU MR#: [id number] : 1965 Acct:[id number] Age/Sex: 58 / M ADM Date: 12/30/23 Loc: RAD Attending Dr: YONATAN ROSADO M.D. Ordering Physician: YONATAN ROSADO M.D. Date of Service: 12/30/23 Procedure(s): CT foot LT wo con Accession Number(s): [id number] 1. There appears to be a small [...] by: DONTA BALLARD Date: 01/02/2024 08:47 [place] [address] Vein Report Signed Patient: LEIDA HOU MR#: [id number] : 1965 Acct:[id number] Age/Sex: 58 / M ADM Date: 12/30/23 Loc: VC Attending Dr: YONATAN ROSADO M.D. Ordering Physician: YONATAN ROSADO M.D. Date of Service: 12/30/23 Procedure(s): VC SEGMENTAL PRESSURES Accession Number(s): [id number] cc: NOHEMI PHOENIX ; YONATAN ROSADO M.D. [address] [address] Patient Name: LEIDA HOU MRN: [id number] date: 1965 Sex: M Assigned Patient Location: Current Patient Location: Accession/Order Number: [id number] Exam Date: 12/30/2023 13:05 Report Date: 12/31/2023 [...] M.D. 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 Signed by Signed Time Phone Pager Radiologist MD Rosalina 12/31/2023 07:04 [phone] Exam Information Status Exam Begun Exam Ended Final External Results Report Open External Results Report Encounter View Encounter SEGMENTAL BLOOD PRESSURE Order: [id number] Status: Final result Visible to patient: Yes (not seen) Next appt: 01/08/2024 at 09:40 AM in Podiatry (Yonatan Rosado DPM FACFAS) 0 Result Notes Details Reading Physician Reading Date Result Priority Radiologist MD Rosalina [phone] 12/31/2023 Narrative & [place] [address] Vein Report Signed Patient: LEIDA HOU MR#: [id number] : 1965 Acct:[id number] Age/Sex: 58 / M ADM Date: 12/30/23 Loc: VC Attending Dr: YONATAN ROSADO M.D. Ordering Physician: YONATAN ROSADO M.D. Date of Service: 12/30/23 Procedure(s): VC SEGMENTAL PRESSURES Accession Number(s): [id number] cc: NOHEMI PHOENIX ; YONATAN ROSADO M.D. The [place] [id number] Patient Name: LEIDA HOU MRN: [id number] date: 1965 Sex: M Assigned Patient Location: Current Patient Location: Accession/Order Number: [id number] Exam Date: 12/30/2023 13:05 Report Date: 12/31/2023 [...] M.D. Signed By: 01/02/24 0849 DD/ TD/TT: Transportation Maintenance Worker: Lab Results Component Value Date HGBA1C 10.0 12/16/2023 Allergies: Allergies Allergen Reactions Atorvastatin Other Reaction(s): other Codeine Nausea Only Past Medical History: Past Medical History: Diagnosis Date Abnormal ankle brachial index (KUSH) 2020 KUSH normal, TBI is abnormal CHF (congestive heart failure) ([facility]) Cholelithiasis 2016 Diabetes mellitus ([facility]) Diverticulitis 2017 partial obstruction H/O [...] dysfunction, mild to moderate mitral regurgitaion Hypertension ([facility]) [place] (my[place]) ([facility]) 2010 Medications: Current Outpatient Medications: [...] Continuous Glucose Sensor (FreeStyle Shazia 2 Sensor) [facility] Inject 1 each under the skin every [...] Disp: 20 tablet, Rfl: 0 Tuberculin Syringe ([employer] Tuberculin Safety Syr) 25G X 5/8 1 ML misc, USE DIRECTED, Disp: 100 each, Rfl: 4 ROS: Constitutional: Denies fever, chills, nausea, vomiting GI: Denies abdominal pain, cramping, loose stool, gastric ulcers Musculoskeletal: Denies low back pain, knee pain, systemic arthritis Neurologic: Denies burning, tingling, transient paralysis OBJECTIVE Physical examination: Vascular: Dorsalis pedis posterior tibial pulses are palpable bilateral, no edema noted Neuro: [place] 5.07 monofilament intact, vibratory sensation intact Derm: [...] surgical shoe SUSANA Davis documented [id number] History of Present illness Narrative* SUSANA Davis [...] TBI is abnormal CHF (congestive heart failure) ([facility]) Cholelithiasis 2017 Diabetes mellitus ([facility]) Diverticulitis 2017 partial obstruction H/O [...] dysfunction, mild to moderate mitral regurgitaion Hypertension ([facility]) [place] (my[place]) ([facility]) 2010 Medications: Current Outpatient Medications: [...] Syringe U/F) 31G X 15/64 0.5 ML [facility], Infuse 1 Deviceinto a venous catheter in [...] Disp: 20 tablet, Rfl: 0 Tuberculin Syringe ([employer] Tuberculin Safety Syr) 25G X 5/8 1 ML misc, USE DIRECTED, Disp: 100 each, Rfl: 4 ROS: Constitutional: Denies fever, chills, nausea, vomiting GI: Denies abdominal pain, cramping, loose stool, gastric ulcers Musculoskeletal: Denies low back pain, knee pain, systemic arthritis Neurologic: Denies burning, tingling, transient paralysis OBJECTIVE Physical examination: Vascular: Dorsalis pedis posterior tibial pulses are palpable bilateral, no edema noted Neuro: [place] 5.07 monofilament intact, vibratory sensation intact Derm: [...] Acute osteomyelitis of ankle and foot, left ([facility]) 2. Type II diabetes mellitus with neurological manifestations ([facility]) 3. 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, left ([facility]) 4. PAD (peripheral artery disease) ([facility]) PLAN I educated the patient [...] Bactrim DS. SUSANA Davis documented in this encounterCarondelet [id number] NoteMicrobiology PROCEDURE: Wound Culture [R1] SOURCE: Wound BODY SITE: Toe COLLECTED DATE/TIME: 12/21/2023 10:20 EDT RECEIVED DATE/TIME: 12/21/2023 12:23 EDT START DATE/TIME: 12/21/2023 12:23 EDT FREE TEXT SOURCE: Left great toe Yonatan Rosado DPM, DPM, Yonatan Cerda FINAL REPORTS Final Report [...] Locations R1: This test was performed at: [place] [facility], [address] [place] [address], [id number] , , ZmcjfdOhio State Harding HospitalComment on above:Performed By: #### [id number] #### [facility] [address] [place] [address] [id number] History of Present illness Narrative* Yonatan Rosado [...] TBI is abnormal CHF (congestive heart failure) ([facility]) Cholelithiasis 2016 Diabetes mellitus ([facility]) Diverticulitis 2017 partial obstruction H/O [...] dysfunction, mild to moderate mitral regurgitaion Hypertension ([facility]) [place] (myocardial infarction) ([facility]) 2010 Medications: Current Outpatient Medications: [...] Continuous Glucose Sensor (FreeStyle Shazia 2 Sensor) [facility] [place]ject 1 each under the skin every [...] Disp: 20 tablet, Rfl: 0 Tuberculin Syringe (E-TEK [employer] Tuberculin Safety Syr) 25G X 5/8 1 ML misc, USE DIRECTED, Disp: 100 each, Rfl: 4 ROS: Constitutional: Denies fever, chills, nausea, vomiting GI: Denies abdominal pain, cramping, loose stool, gastric ulcers Musculoskeletal: Denies low back pain, knee pain, systemic arthritis Neurologic: Denies burning, tingling, transient paralysis OBJECTIVE Physical examination: Vascular: Dorsalis pedis posterior tibial pulses are palpable bilateral, no edema noted Neuro: [place] 5.07 monofilament intact, vibratory sensation intact Derm: [...] neuropathy, with long-term current use of insulin ([facility]) 2. 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, left ([facility]) PLAN I educated the patient [...] of offloading SUSANA Davis documented in this encounterCarondelet [id number] Evaluation + Plan note Diagnostic Tests Pending * Wound Culture 12/21/23 [facility] [id number] History of Present illness Narrative* SUSANA Davis [...] TBI is abnormal CHF (congestive heart failure) ([facility]) Cholelithiasis 2017 Diabetes mellitus ([facility]) Diverticulitis 2017 partial obstruction H/O [...] mild to moderate mitral regurgitaion Hypertension (CMS/HCC) [place] (myocardial infarction) ([facility]) 2010 Medications: Current Outpatient Medications: [...] Disp: 20 tablet, Rfl: 0 Tuberculin Syringe ([employer]. Tuberculin Safety Syr) 25G X 5/8 1 ML misc, USE DIRECTED, Disp: 100 each, Rfl: 4 ROS: Constitutional: Denies fever, chills, nausea, vomiting GI: Denies abdominal pain, cramping, loose stool, gastric ulcers Musculoskeletal: Denies low back pain, knee pain, systemic arthritis Neurologic: Denies burning, tingling, transient paralysis OBJECTIVE Physical examination: Vascular: Dorsalis pedis posterior tibial pulses are palpable bilateral, no edema noted Neuro: [place] 5.07 monofilament intact, vibratory sensation intact Derm: [...] neuropathy, with long-term current use of insulin ([facility]) 2. Abscess of great toe [...] Supplier Guidelines. SUSANA Davis documented in this encounterCarondelet [id number] History of Present illness Narrative* Zenia Summers NP - 12/16/2023 11:00 AM EDT Images from [...] every 12 (twelve) hours. Continuous Glucose Sensor ([place] MetechStyle Shazia 2 Sensor) misc Inject 1 each [...] 1 tablet in the evening. Tuberculin Syringe (Style [employer]ox[employer] Inc. Tuberculin Safety Syr) 25G X 5/8 1 [...] mild to moderate mitral regurgitaion Hypertension (CMS/HCC) [place] (myocardial infarction) (CMS/HCC) 2010 Past Surgical History: Procedure Laterality Date ABCESS DRAINAGE 2010 on colon CARDIAC SURGERY 2010 5 bypass [...] neuropathy, with long-term current use of insulin ([facility]) - POCT Glycated hemoglobin, total [...] No follow-ups on file. documented in this encounterCarondelet [id number] NoteUTP CardiologyTrihealth Clinic Subjective Leida Hou is a 58 y.o. year old male patient being seen for 4 mo follow up CAD, systolic heart failure, hypertension, and hx of MV repair. Had lab work this morning. His device was interrogated in July 2023. He's been out of [employer] for a few weeks and says his insurance won't pay for it. (He is commercially insured, therefore co-pay card was given to him in the office today.) He was also out of [employer] for awhile but is back on it. [...] artery disease involving coronary bypass graft of nome heart without angina pectoris Tobacco dependence due [...] He had a laparoscopic partial colectomy in 2018. He has diabetes and has issues with [...] unclear reason. He also ran out of [employer] and is working with insurance obtaining it. [...] Psychiatric: Mood and A (more content not included)...[facility] Evaluation note* Diagnosis Hypertension associated with type 2 diabetes mellitus (HCC) ([facility])- Primary Type 2 diabetes mellitus with diabetic autonomic neuropathy, with long-term current use of insulin ([facility]) Primary insomnia Persistent disorder of initiating or maintaining sleep Callus- Primary Corns and callosities Type 2 diabetes mellitus with diabetic autonomic neuropathy, with long-term current use of insulin ([facility]) Toe infection Diabetic polyneuropathy associated with type 2 diabetes mellitus ([facility]) Thrombocytopenia, unspecified ([facility]) Thrombocytopenia, unspecified Type 2 diabetes mellitus with hyperglycemia ([facility]) Immunodeficiency due to conditions classified elsewhere ([facility]) documented in this encounter [facility] HealthcareEvaluation note* Diagnosis Hypertension associated with type 2 diabetes mellitus (HCC) ([facility])- Primary Type 2 diabetes mellitus with diabetic autonomic neuropathy, with long-term current use of insulin ([facility]) Primary insomnia Persistent disorder of initiating or maintaining sleep Type 2 diabetes mellitus with diabetic autonomic neuropathy, with long-term current use of insulin ([facility])- Primary Abscess of great toe of left foot Cellulitis of left foot 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, left ([facility]) Contracture, ankle, left documented in this encounter [facility]* Diagnosis Hypertension associated with type 2 diabetes mellitus (HCC) ([facility])- Primary Type 2 diabetes mellitus with diabetic autonomic neuropathy, with long-term current use of insulin ([facility]) Primary insomnia Persistent disorder of initiating or maintaining sleep Type 2 diabetes mellitus with diabetic autonomic neuropathy, with long-term current use of insulin ([facility])- Primary 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, left ([facility]) documented in this encounter [facility] HealthcareEvaluation note* Diagnosis Hypertension associated with type 2 diabetes mellitus (HCC) ([facility])- Primary Type 2 diabetes mellitus with diabetic autonomic neuropathy, with long-term current use of insulin ([facility]) Primary insomnia Persistent disorder of initiating or maintaining sleep Acute osteomyelitis of ankle and foot, left ([facility])- Primary Type II diabetes mellitus with neurological manifestations ([facility]) Type II or unspecified type diabetes mellitus with neurological manifestations, not stated as uncontrolled 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, left ([facility]) PAD (peripheral artery disease) ([facility]) Unspecified peripheral vascular disease documented in this encounter [facility] HealthcareEvaluation noteNo assessment information availableOhio Valley Hospital Work Phone: Evaluation note* Diagnosis Hypertension associated with type 2 diabetes mellitus (HCC) ([facility])- Primary Type 2 diabetes mellitus with diabetic autonomic neuropathy, with long-term current use of insulin ([facility]) Primary insomnia Persistent disorder of initiating or maintaining sleep PAD (peripheral artery disease) ([facility])- Primary Unspecified peripheral vascular disease 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, left ([facility]) Gangrene ([facility]) Gangrene documented in this encounter [facility] HealthcareEvaluation note* Diagnosis Hypertension associated with type 2 diabetes mellitus (HCC) ([facility])- Primary Type 2 diabetes mellitus with diabetic autonomic neuropathy, with long-term current use of insulin ([facility]) Primary insomnia Persistent disorder of initiating or maintaining sleep Gangrene ([facility])- Primary Gangrene PAD (peripheral artery disease) ([facility]) Unspecified peripheral vascular disease documented in this encounter [facility] HealthcareEvaluation note* Diagnosis Hypertension associated with type 2 diabetes mellitus (HCC) ([facility])- Primary Type 2 diabetes mellitus with diabetic autonomic neuropathy, with long-term current use of insulin ([facility]) Primary insomnia Persistent disorder of initiating or maintaining sleep Gangrene (CMS/HCC)- Primary Gangrene PAD (peripheral artery disease) ([facility]) Unspecified peripheral vascular disease documented in this encounter [facility] HealthcareEvaluation note* Diagnosis Hypertension associated with type 2 diabetes mellitus (HCC) ([facility])- Primary Type 2 diabetes mellitus with diabetic autonomic neuropathy, with long-term current use of insulin ([facility]) Primary insomnia Persistent disorder of initiating or maintaining sleep PAD (peripheral artery disease) ([facility])- Primary Unspecified peripheral vascular disease Gangrene ([facility]) Gangrene documented in this encounter [facility]* Diagnosis Hypertension associated with type 2 diabetes mellitus (HCC) ([facility])- Primary Type 2 diabetes mellitus with diabetic autonomic neuropathy, with long-term current use of insulin ([facility]) Primary insomnia Persistent disorder of initiating or maintaining sleep PAD (peripheral artery disease) ([facility])- Primary Unspecified peripheral vascular disease Gangrene ([facility]) Gangrene documented in this encounter [facility]* Diagnosis Hypertension associated with type 2 diabetes mellitus (HCC) ([facility])- Primary Type 2 diabetes mellitus with diabetic autonomic neuropathy, with long-term current use of insulin ([facility]) Primary insomnia Persistent disorder of initiating or maintaining sleep Type II diabetes mellitus with neurological manifestations ([facility])- Primary Type II or unspecified type diabetes mellitus with neurological manifestations, not stated as uncontrolled PAD (peripheral artery disease) ([facility]) Unspecified peripheral vascular disease Gangrene ([facility]) Gangrene 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, left ([facility]) documented in this encounter [facility]* Diagnosis Hypertension associated with type 2 diabetes mellitus (HCC) ([facility])- Primary Type 2 diabetes mellitus with diabetic autonomic neuropathy, with long-term current use of insulin ([facility]) Primary insomnia Persistent disorder of initiating or maintaining sleep Type II diabetes mellitus with neurological manifestations ([facility])- Primary Type II or unspecified type diabetes mellitus with neurological manifestations, not stated as uncontrolled PAD (peripheral artery disease) ([facility]) Unspecified peripheral vascular disease Gangrene ([facility]) Gangrene Acute osteomyelitis of ankle and foot, left ([facility]) documented in this encounter [facility]* Diagnosis Hypertension associated with type 2 diabetes mellitus (HCC) ([facility])- Primary Type 2 diabetes mellitus with diabetic autonomic neuropathy, with long-term current use of insulin ([facility]) Primary insomnia Persistent disorder of initiating or maintaining sleep Type II diabetes mellitus with neurological manifestations ([facility])- Primary Type II or unspecified type diabetes mellitus with neurological manifestations, not stated as uncontrolled PAD (peripheral artery disease) ([facility]) Unspecified peripheral vascular disease Gangrene ([facility]) Gangrene Acute osteomyelitis of ankle and foot, left ([facility]) documented in this encounter [facility]* Diagnosis Hypertension associated with type 2 diabetes mellitus (HCC) ([facility])- Primary Type 2 diabetes mellitus with diabetic autonomic neuropathy, with long-term current use of insulin ([facility]) Primary insomnia Persistent disorder of initiating or maintaining sleep PAD (peripheral artery disease) ([facility])- Primary Unspecified peripheral vascular disease Gangrene ([facility]) Gangrene Type II diabetes mellitus with neurological manifestations ([facility]) Type II or unspecified type diabetes mellitus with neurological manifestations, not stated as uncontrolled Chronic ulcer of great toe of left foot with fat layer exposed ([facility]) documented in this encounter [facility]* Diagnosis Hypertension associated with type 2 diabetes mellitus (HCC) ([facility])- Primary Type 2 diabetes mellitus with diabetic autonomic neuropathy, with long-term current use of insulin ([facility]) Primary insomnia Persistent disorder of initiating or maintaining sleep PAD (peripheral artery disease) ([facility])- Primary Unspecified peripheral vascular disease Gangrene ([facility]) Gangrene documented in this encounter [facility]* Diagnosis Hypertension associated with type 2 diabetes mellitus (HCC) ([facility])- Primary Type 2 diabetes mellitus with diabetic autonomic neuropathy, with long-term current use of insulin ([facility]) Primary insomnia Persistent disorder of initiating or maintaining sleep Type II diabetes mellitus with neurological manifestations ([facility])- Primary Type II or unspecified type diabetes mellitus with neurological manifestations, not stated as uncontrolled Amputation of left great toe ([facility]) Gastrocnemius equinus of left lower extremity Gastrocnemius equinus of right lower extremity documented in this encounter [facility]* Diagnosis Hypertension associated with type 2 diabetes mellitus (HCC) ([facility])- Primary Type 2 diabetes mellitus with diabetic autonomic neuropathy, with long-term current use of insulin ([facility]) Primary insomnia Persistent disorder of initiating or maintaining sleep Type II diabetes mellitus with neurological manifestations ([facility])- Primary Type II or unspecified type diabetes mellitus with neurological manifestations, not stated as uncontrolled Amputation of left great toe ([facility]) documented in this encounter [facility]* Diagnosis Hypertension associated with type 2 diabetes mellitus (HCC) ([facility])- Primary Type 2 diabetes mellitus with diabetic autonomic neuropathy, with long-term current use of insulin ([facility]) Primary insomnia Persistent disorder of initiating or maintaining sleep Acute bronchitis, unspecified organism- Primary Acute cough Hypertensive heart disease with heart failure ([facility]) Unspecified hypertensive heart disease with heart failure Gangrene, not elsewhere classified ([facility]) Type 2 diabetes mellitus with foot ulcer (CODE) ([facility]) Non-pressure chronic ulcer 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 ([facility]) Ventricular tachycardia, unspecified ([facility]) Unspecified systolic (congestive) heart failure ([facility]) Heart failure, unspecified ([facility]) Heart failure, unspecified Chronic systolic (congestive) heart failure ([facility]) documented in this encounter [facility]* Diagnosis Hypertension associated with type 2 diabetes mellitus (HCC) ([facility])- Primary Type 2 diabetes mellitus with diabetic autonomic neuropathy, with long-term current use of insulin ([facility]) Primary insomnia Persistent disorder of initiating or maintaining sleep Type 2 diabetes mellitus with diabetic autonomic neuropathy, with long-term current use of insulin ([facility])- Primary Type 2 diabetes mellitus with foot ulcer (CODE) ([facility]) Primary insomnia Persistent disorder of initiating or maintaining sleep documented in this encounter [facility]* Diagnosis Hypertension associated with type 2 diabetes mellitus (HCC)- Primary Type 2 diabetes mellitus with diabetic autonomic neuropathy, with long-term current use of insulin ([facility]) Primary insomnia Persistent disorder of initiating or maintaining sleep Type 2 diabetes mellitus with diabetic autonomic neuropathy, with long-term current use of insulin ([facility])- Primary Type 2 diabetes mellitus with foot ulcer (CODE) ([facility]) Primary insomnia Persistent disorder of initiating or maintaining sleep Muscle spasm of back- Primary Intercostal pain documented in this encounter [facility]* Diagnosis Hypertension associated with type 2 diabetes mellitus (HCC)- Primary Type 2 diabetes mellitus with diabetic autonomic neuropathy, with long-term current use of insulin ([facility]) Primary insomnia Persistent disorder of initiating or maintaining sleep Type 2 diabetes mellitus with diabetic autonomic neuropathy, with long-term current use of insulin ([facility])- Primary Type 2 diabetes mellitus with foot ulcer (CODE) ([facility]) Primary insomnia Persistent disorder of initiating or maintaining sleep Acute thoracic back pain, unspecified back pain laterality- Primary Muscle spasm of back documented in this encounter [facility] Narrative No data available for this section [facility] Hospital Discharge instructions No data available for this section [facility] Hospital Discharge instructions Additional Instructions DISCHARGE INSTRUCTIONS [...] drive for [address] Fields: (Jzpgwm) [phone] -If excessive bleeding should occur from the [...] XR, Metaglip, Metformin, PrandiMet, Riomet.] FOLLOW UP/OTHER INSTRUCTIONSCity Hospital Work Phone: Progress note No data available for this section [facility] Summary Purpose Family History No Family History [...] Date/ Time Advance Directives No August 31 8 9:45am Chief Complaint and Reason for Visit Chief Complaint Admit Date REF BY DR. ROSADO FOR POSS GANGRENE Novem 2023 11:25am Chief Complaint Admit Date REF BY DR. ROSADO FOR POSS G[facility] 2023 11:25am left great toe gangrene. January 07, 2024 6:40am left great toe gangrene. January 07, 2024 9:13am Reason for Visit Admit Date Gangrene associated with diabetes [facility] January 06, 2024 11:25am Additional Source Comments (unrecognized sect ion and content) No Status Records FoundNo Status Records FoundNo Status Records FoundNo Status Records FoundNo Status Records FoundNo Status Records FoundNo Status Records FoundNo Status Records FoundNo Status Records Found INFORMATION SOURCE (unrecogn ized section and content) DATE CREATED AUTHOR 08/17/2017 [facility] DATE CREATED AUTHOR AUTHOR'S ORGANIZ ATION 08/17/2017 [facility] DATE CREATED AUTHOR AUTHOR'S ORGANIZ ATION 10/23/2020 [facility] DATE CREATED AUTHOR AUTHOR'S ORGANIZ ATION 10/21/2021 [facility] DATE CREATED AUTHOR AUTHOR'S ORGANIZ ATION 12/22/2023 [facility] DATE CREATED AUTHOR AUTHOR'S ORGANIZ ATION 01/24/2024 [facility] DATE CREATED AUTHOR AUTHOR'S ORGANIZ ATION 01/28/2024 [facility] DATE CREATED AUTHOR AUTHOR'S ORGANIZ ATION 02/02/2024 [facility] DATE CREATED AUTHOR AUTHOR'S ORGANIZ ATION 11/08/2024 [facility] DATE CREATED AUTHOR AUTHOR'S ORGANIZ ATION 11/10/2024 [facility] EPIC Care Teams (unrecognized sec tion and content) 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 Operator Freight Relationship Specialty Start Date End Date Nohemi Phoenix MD [address] [facility] [address] [place] [address] PCP - [place] [employer] 06/23/21 Nohemi Phoenix MD [address] [address] [place] [address] PCP - General Family Medicine 09/22/22 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 Operator Freight Relationship Specialty Start Date End Date Nohemi Phoenix MD [address] [place] [address] PCP - [employer] 06/23/21 Nohemi Phoenix MD [address] [place] [address] PCP - General Family Medicine 09/22/22 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 Operator Freight Relationship Specialty Start Date End Date Nohemi Phoenix MD [address] [place] [address] PCP - [employer] 06/23/21 Nohemi Phoenix MD [address] [place] [address] PCP - General Family Medicine 09/22/22 Elevator Operator Freight Relationship Specialty Start Date End Date Nohemi Phoenix MD [address] [place] [address] PCP - [employer] 06/23/21 Nohemi Phoenix MD [address] [place] [address] PCP - General Family Medicine 09/22/22 Elevator Operator Freight Relationship Specialty Start Date End Date Nohemi Phoenix MD [address] [place] [address] PCP - [employer] 06/23/21 Nohemi Phoenix MD [address] [place] [address] PCP - General Family Medicine 09/22/22 Elevator Operator Freight Relationship Specialty Start Date End Date Nohemi Phoenix MD [address] [facility] [address] [place] [address] PCP - [employer] 06/23/21 Nohemi Phoenix MD [address] [facility] [address] [place] [address] PCP - General Family Medicine 09/22/22 Elevator Operator Freight Relationship Specialty Start Date End Date Nohemi Phoenix MD [address] [facility] [address] [place] [address] PCP - [employer] 06/23/21 Nohemi Phoenix MD [address] [facility] [address] [place] [address] PCP - General Family Medicine 09/22/22 Elevator Operator Freight Relationship Specialty Start Date End Date Nohemi Phoenix MD [address] [facility] [address] [place] [address] PCP - [employer] 06/23/21 Nohemi Phoenix MD [address] [facility] [address] [place] [address] PCP - General Family Medicine 09/22/22 Team Status: Active Member Role Status Dates Nohemi Phoenix MD Primary Care Provider Active Team Status: Inactive Member Role Status Dates Esthela Fields MD Attending Provider Active Start: January 06, 2024 End: January 06, 2024 Nohemi Phoenix MD Primary Care Provider Active S tart: January 06, 2024 End: January 06, 2024 Team Status: Inactive Member Role Status Dates Nohemi Phoenix MD Primary Care Provider Active S tart: January 07, 2024 End: January 07, 2024 Esthela Fields MD Attending Provider Active Start: January 07, 2024 End: January 07, 2024 Team Status: Active Member Role Status Dates Nohemi Phoenix MD Primary Care Provider Active S tart: January 07, 2024 Esthela Fields MD Attending Prov ider, Other Provider Active Start: January 07, 2024 Elevator Operator Freight Relationship Specialty Start Date End Date Nohemi Phoenix MD [address] [facility] [address] [place] [address] PCP - [employer] 06/23/21 Nohemi Phoenix MD [address] [facility] [address] [place] [address] PCP - General Family Medicine 09/22/22 Elevator Operator Freight Relationship Specialty Start Date End Date Nohemi Phoenix MD [address] [facility] [address] [place] [address] PCP - [employer] 06/23/21 Nohemi Phoenix MD [address] [facility] [address] [place] [address] PCP - General Family Medicine 09/22/22 Elevator Operator Freight Relationship Specialty Start Date End Date Nohemi Phoenix MD [address] [facility] [address] [place] [address] PCP - [employer] 06/23/21 Nohemi Phoenix MD [address] [facility] [address] [place] [address] PCP - General Family Medicine 09/22/22 Elevator Operator Freight Relationship Specialty Start Date End Date Nohemi Phoenix MD [address] [facility] [address] [place] [address] PCP - [employer] 06/23/21 Nohemi Phoenix MD [address] [facility] [address] [place] [address] PCP - General Family Medicine 09/22/22 Elevator Operator Freight Relationship Specialty Start Date End Date Nohemi Phoenix MD [address] [facility] [address] [place] [address] PCP - [employer] 06/23/21 Nohemi Phoenix MD [address] [facility] [address] [place] [address] PCP - General Family Medicine 09/22/22 Elevator Operator Freight Relationship Specialty Start Date End Date Nohemi Phoenix MD [address] [facility] [address] [place] [address] PCP - [employer] 06/23/21 Nohemi Phoenix MD [address] [facility] [address] [place] [address] PCP - General Family Medicine 09/22/22 Elevator Operator Freight Relationship Specialty Start Date End Date Nohemi Phoenix MD [address] [place] [address] PCP - [employer] 06/23/21 Nohemi Phoenix MD [address] [facility] [address] [place] [address] PCP - General Family Medicine 09/22/22 Elevator Operator Freight Relationship Specialty Start Date End Date Nohemi Phoenix MD [address] [facility] [address] [place] [address] PCP - General Family Medicine 09/22/22 Elevator Operator Freight Relationship Specialty Start Date End Date Nohemi Phoenix MD [address] [facility] [address] [place] [address] PCP - General Family Medicine 09/22/22 Nohemi Phoenix MD [address] [facility] [address] [place] [address] PCP - [facility] 06/23/24 Elevator Operator Freight Relationship Specialty Start Date End Date Nohemi Phoenix MD [address] [place] [address] PCP - General Family Medicine 09/22/22 Nohemi Phoenix MD [address] [facility] [place] [address] PCP - [facility] 06/23/24 Elevator Operator Freight Relationship Specialty Start Date End Date Nohemi Phoenix MD [address] [facility] [address] [place] [address] PCP - General Family Medicine 09/22/22 Nohemi Phoenix MD [address] [facility] [address] [place] [address] PCP - [facility] 06/23/24 Elevator Operator Freight Relationship Specialty Start Date End Date Nohemi Phoenix MD [address] [facility] [place] [address] PCP - General Family Medicine 09/22/22 Nohemi Phoenix MD [address] [facility] [address] [place] [address] PCP - [employer] 06/23/24 Reason for Visit (unrecogniz ed section and content) Reason Comments infected toe Diabetes Reason Comments Foot Wound Check LT grt toe infection with wound, swollen Specialty Diagnoses / Procedures Referred By Contkira t Referred To Contact Podiatry Diagnoses Type 2 diabetes mellitus with diabetic autonomic neuropathy, with long-term current use of insulin ([facility]) Callus Toe infection Procedures NC OFFICE/OUTPATIENT NEW HIGH MDM 60 MINUTES Zenia Summers, CONTRACTS REPRESENTATIVE [address] [facility] [address] [place] [address] Phone: tel: fax: Milton Gallagher DPM [address] [facility] [address] [place] [address] Phone: tel: fax: Referral ID Status Reason Start Date Expiration Date V isits Requested Visits Authorized [id number] Closed Specialty Services Required 12/16/2023 06/13/2024 1 [...] Reason Comments Diabetes A1c today is 11.0 Reason Comments Pain Specialty Diagnoses / Procedures Referred By Sylvie t Referred To Contact Orthopaedic Surgery Diagnoses Muscle spasm of back Acute pain of right shoulder Zenia Summers, MANISH [address] [facility] [address] [place] [address] Phone: tel: fax: Jr. Ashia Bonilla, DO [address] [place] [address] Phone: tel: fax: Referral ID Status Reason Start Date Expiration Date V isits Requested Visits Authorized [id number] Closed Specialty Services Required 10/25/2024 04/23/2025 1 1 Goals (unrecognized section and content) Goals may [...] BE BASED ON THE PRIMARY CLINICAL RECORDS. [facility]. provides no warranty or guarantee of the accuracy or completeness of information in this document.
--- NOTE | 2024-11-16 11:52 | PM.CN ---
Consult Note: HPI Data of Consult Patient: new to practice Consult date: 11/16/24 Requesting Physician: Anisa Fernandez NP Primary Care Provider: NOHEMI PHOENIX Consult Narrative Reason for consult: right thoracic pain Narrative: Tone Cerrato a pleasant 59 year old male presents for evaluation of right chest wall and thoracic pain post injury around 6 weeks ago. Pt reports he was doing yard work and cutting trees when he felt a bad click and stabbing pain to right chest wall, was evaluated by Sagar TAYLOR who talked with pt about a slipped rib. he has failed tylenol, motrin, heat, ice. has not trialed PT yet, upcoming appointment. has not trialed rn patient care yet. Pain today 6-09/01 stabbing sharp at times, did not find benefit to oral steroids or tizanidine which caused drowsiness. cc:: CC: Anisa Fernandez NP Review of Systems ROS Musculoskeletal Reports: back pain Exam Constitutional Documenting provider has reviewed patient's vital signs: yes Common normals: no apparent distress, oriented x3, healthy appearing, alert and well nourished General appearance: cooperative HENWV Common normals: normocephalic, hearing grossly normal bilaterally and moist oral mucous membranes Head and scalp: normocephalic Eye Common normals: PERRL Pupil: PERRL Neck & C-Spine Common normals: full ROM General: normal visual inspection Chest Common normals: inspection of chest normal Respiratory Common normals: normal respiratory effort, no retractions and no use of accessory muscles Back & Pelvis Thoracic spine/upper back: ROM limited, pain with ROM, paraspinal muscle tenderness, paraspinal muscle spasm Thoracic paraspinal muscle spasm: right Right thoracic paraspinal muscle spasm: T5, T6 and T7 and bony scapula findings (myofascial spasm noted) Other: pain noted to below areas with myofascial spasms noted Back image (male):  1. Neuro Common normals: oriented x3 Sensorium/orientation: alert Psych Common normals: mental status grossly normal, thought process normal, cooperative, affect normal, speech normal and activity/motor behavior normal Speech: normal speech Thought process: normal thought process Results Additional Findings Additional findings: If on a controlled substance or opioids, I have checked an [place]AR[place] report on this patient and there are no aberrancies noted in the prescribing history.??If on a controlled substance or opioid a drug screen was completed and reviewed within the last year, and if there has not been a drug screen completed we ordered one today to monitor higher risk, state monitored pain medication use. As part of providing excellent, safe, comprehensive care, the following was completed at our patient's visit: 1. A medication reconciliation and review to ensure accurate knowledge of current/active medications, including asking our patients to inform us about any [id number] medications or herbal remedies/nutritional supplements/alternative remedies. 2. A review to specifically ensure our patients have had annual screening for screening for depression, screening for tobacco use, and screening for unhealthy alcohol use. For concerning screenings had a discussion with the patient, provided patient education, and recommended follow-up with primary care provider when appropriate. If patient noted with a risk of falling, they received education on strength, gait, and balance training to prevent future risk of falling. Portions of this note may have been carried over from the previous visit and updated as appropriate. Please note this office utilizes paper charting in addition to the electronic medical record. A list of current medications, vitals, and PMH is available there as the clinical staff outside of myself do not have access to [employer] charting during the clinic day operations. As part of providing quality comprehensive care the current medications, vitals, and PMH were reviewed in the paper chart. Assessment and Plan Assessment and Plan (1) Thoracic myofascial strain: (2) Myofascial pain: Plan dc tizanidine, start baclofen 5-10mg BID PRN pain/spasms encouraged PT can trial rn patient care f/u 6 weeks, sooner if needed
== END 2024-11-16 10:54 | disposition home or self-care (01) ==
LOC: PM 10:54
PROVIDERS: PCP Family Medicine; Visit Provider Nurse Practitioner
DX: M79.18 Myalgia, other site (principal); S29.012A Strain of muscle and tendon of back wall of thorax, initial encounter
CPT/HCPCS: G0463

== ENCOUNTER 2025-02-22 15:44 | Outpatient (OUT) | payer BC, SELFPAY ==
--- OUTSIDE RECORDS SUMMARY | 2025-02-14 15:00 | XMS_ITS | Encounter Summary ---
Author Organization [facility] Address [address] [place] [address] Care Team Providers Care Devops Consultant Name Role Phone Gladis Gibson MD Primary Care Provider [phone] Zenia Christina PIERCING SPECIALIST Unavailable [phone] Reason for Visit * ReasonCommentsDiabetesLast 8.9 Encounter Details DateTypeDepartmentCare Team (Latest Contact Info)Zopxmomdmlv63/23/2025 3:00 PM ESTOffice Visit [facility] [address] [facility] [address] [place] [id number] Gladis Gibson MD [address] [facility] [address] [place], [place] [id number] Screening PSA (prostate specific antigen) (Primary Dx); Type 2 diabetes mellitus with diabetic autonomic neuropathy, with long-term current use of insulin ([facility]); Fluid level behind tympanic membrane of left ear; Primary insomnia; Gastroesophageal reflux disease without esophagitis; Ischemic cardiomyopathy; Type 2 diabetes mellitus with cardiac complication (HCC); Type 2 diabetes mellitus with foot ulcer (CODE) ([facility]); Type 2 diabetes mellitus without complication, with long-term current use of insulin ([facility]) Social History Tobacco UseTypesPacks/DayYears UsedDateSmoking Tobacco: NeverSmokeless Tobacco: CurrentChewAlcohol UseStandard Drinks/WeekCommentsNot Currently0 (1 standard drink = 0.6 oz pure alcohol)PHQ-2AnswerDate RecordedPatient Health Questionnaire-2 Zyrth01604/17/2024Sex and Gender InformationValueDate RecordedSex Assigned at BirthNot on fileLegal GmaRyzl8805/07/2022 7:30 PM EDTGender Identity Not on fileSexual OrientationNot on filedocumented as of this encounter Last Filed Vital Signs Vital SignReadingTime TakenCommentsBlood Fhczkcum413/8402/14/2025 3:18 PM EST Abjqs164702/14/2025 3:18 PM ESTTemperature--Respiratory Rate--Oxygen Ipuuyigobp60% 02/14/2025 3:18 PM ESTInhaled Oxygen Concentration--Teqgsn91.9 kg (218 lb) 02/14/2025 3:18 PM VBAWcrdng694.9 cm (6')02/14/2025 3:18 PM ESTBody Mass Index 29.5702/14/2025 3:18 PM ESTdocumented in this encounter Functional Status * Over the past 2 weeks, how often have you been bothered by any of the following problems?QuestionAnswerDate of AssessmentAuthorLittle interest or pleasure in doing thingsNot at all02/14/2025 7:49 AM Marina Shane MA Feeling down, depressed, or hopelessNot at all02/14/2025 7:49 AM Marina Shane [facility] Questionnaire-2 Witax16704/17/2024 7:49 AM Marina Shane MA documented as of this encounter Progress Notes * Gladis Gibson MD - 02/14/2025 3:37 PM ESTAssociated Problem(s): Type 2 diabetes mellitus with foot ulcer (CODE) (HCC) Toe removed left great toe * Gladis Gibson MD - 02/14/2025 3:37 PM ESTAssociated Problem(s): Type 2 diabetes mellitus without complication, with long-term current use ofinsulin (HCC) Reduce sugars * Gladis Gibson MD - 02/14/2025 3:29 PM ESTAssociated Problem(s): Type 2 diabetes mellitus with cardiac complication (HCC) Now 8.4 * Gladis Gibson MD - 02/14/2025 3:27 PM ESTAssociated Problem(s): Type 2 diabetes mellitus with diabetic autonomic (poly)neuropathy (HCC) No Tobacco use Follow ADA 1800 diet low carbohydrate Continue Med Compliance Goal LDL less than 100Goal BP 130/80 Goal HgbA1c < 7.0% Monitor Feet, monitor for infection Needs Exercise Yearly eye exams Prior to your visit today we reviewed your chart and outlined testing and treatment needed foryour care. Reviewed poissble complications of diabetes including, loss of vision, kidney failure and increased risk of heart attacks and stroke. We made recommendations on how to control your blood sugars, and minimize your risk of these complications. We discussed your current barriers to a healthy living and importance of healthy diet and exercise. * Gladis Gibson MD - 02/14/2025 3:26 PM ESTAssociated Problem(s): Ischemic cardiomyopathy Sees Cardiology Regularly and has no current needs or complaints * Gladis Gibson MD - 02/14/2025 3:00 PM EST HPI Diabetes Additional comments: Last 8. Last edited by Marina Peng MA on 02/14/2025 7:48 AM. Subjective Patient ID: Tone Cerrato is a 59 y.o. male who presents for Diabetes (Last 8.9). Tone presents today for his 4 month F/U for diabetes. Pt has two skin tags looked at one on his right side of his uatsdin and the other on the right side of his lower neck area Diabetes He presents for his follow-up diabetic visit. He has type 2 diabetes mellitus. No MedicAlert identification noted. His disease course has been stable. There are no hypoglycemic associated symptoms. Pertinent negatives for hypoglycemia include no dizziness. There are no diabetic associated symptoms.Pertinent negatives for diabetes include no chest pain. There are no hypoglycemic complications. Symptoms are stable. There are no diabetic complications. Risk factors for coronary artery disease include diabetes mellitus and male sex. Current diabetic treatment includes insulin injections. He has not had a previous visit with a dietitian. An MARI inhibitor/angiotensin II receptor babita is beingtaken. He does not see a coordinator integrated marketing.Eye exam is current. Over the past 2 weeks, how often [...] mouth Daily Continuous Glucose Sensor (FreeStyle Shazia 3 Plus Sensor) misc 1 each every 14 (fourteen) days 12 each 3 empagliflozin (Jardiance) 25 MG Take 1 tablet (25 mg) by mouth in the morning. 30 tablet 11 ezetimibe (Zetia) 10 MG tablet Take 1 tablet (10 mg) by mouth Daily 100 tablet 3 gabapentin (Neurontin) 600 MG tablet TAKE 1 TABLET BY MOUTH THREE TIMES A DAY 270 tablet 0 insulin aspart (NovoLOG FLEXPEN) 100 UNIT/ML pen Inject 30 Units under the skin in the morning and 30 Units at noon and 30 Units in the evening. Inject with meals. 100 mL 3 insulin degludec (Tresiba FlexTouch) [...] 1 Device before bedtime. 400 each 3 pen needle 30G x 8 mm misc Use as instructed 270 each 3 rosuvastatin (Crestor) 20 MG tablet 1 (one) time each day at the same time. sacubitril-valsartan (Entresto) 24-26 MG tablet Take 1 tablet by mouth in the morning and 1 tablet in the evening. tiZANidine (Zanaflex) 4 MG tablet Take 1 tablet (4 mg) by mouth every 6 (six) hours if needed for muscle spasms for up to 10 days 30 tablet 0 [DISCONTINUED] diazePAM (Valium) 5 MG tablet Take 1 tablet (5 mg) by mouth 1 (one) time each day atthe same time PRN 30 tablet 0 [DISCONTINUED] meclizine (Antivert) 25 MG tablet 1 tablet as needed Orally every 4-6 hours as needed for 90 days 30 tablet 1 [DISCONTINUED] omeprazole (PriLOSEC) [address] capsule TAKE 1 CAPSULE BY MOUTH EVERY DAY AT THE SAMETIME EACH DAY 100 capsule 3 No current facility-administered medications on file prior [...] TBI is abnormal CHF (congestive heart failure) ([facility]) Cholelithiasis 2017 Diabetes mellitus (HCC) Diverticulitis 2017 partial obstruction H/O CT scan [...] dysfunction, mild to moderate mitral regurgitaion Hypertension [place] (myocardial infarction) ([facility]) 2010 Past Surgical History: Procedure Laterality Date ABCESS DRAINAGE 2010 on colon AMPUTATION FOOT / TOE Left 02/01/2024 Left great toe CARDIAC SURGERY 2010 5 bypass CARDIAC SURGERY 2020 right heart catheterization b/l angiography, severe 3 vessel cad with occlusion papent 4/5 bypass grafts(papent carrero to diagonal 2, patent svg to diagonal1, patent radial graft to om1, patent svg to the pda CATARACT EXTRACTION, BILATERAL [address] cortez diverticulosis scar tissue COLONOSCOPY 2016 dr boyle some polyps FEMORAL ARTERY STENT Left 01/19/2024 INSERT / REPLACE / REMOVE PACEMAKER 2011 2019single chamber ICD replacement due to battery depletion OTHER SURGICAL HISTORY 08/30/2019 Single chamber ICD replacement due to battery depletion Visit Vitals BP 128/84 Pulse 56 Ht 6' Wt 218 lb SpO2 97% BMI 29.57 kg/m?? Smoking Status Never BSA 2.24 m?? Review of Systems Constitutional: Negative for chills and fever. Respiratory: Negative for shortness of breath. Cardiovascular: Negative for chest pain. Gastrointestinal: Negative for constipation, diarrhea, nausea and vomiting. Musculoskeletal: Negative for back pain and gait problem. Neurological: Negative. Negative for dizziness and facial asymmetry. Objective Physical Exam Vitals reviewed. Constitutional: Appearance: Normal appearance. HENT: Head: Normocephalic. Cardiovascular: Rate and Rhythm: Normal rate and regular rhythm. Pulses: Normal pulses. Pulmonary: Effort: Pulmonary effort is normal. Breath sounds: Normal breath sounds. Neurological: General: No focal deficit present. Mental Status: He is alert and oriented to person, place, and time. Psychiatric: Mood and Affect: Mood normal. Office Visit on 02/14/2025 Component Date Value Ref Range Status Hemoglobin A1C 02/14/2025 8.4 Final Assessment/Plan Problem List Items Addressed This Visit Gastroesophageal reflux disease without esophagitis Relevant Medications omeprazole (PriLOSEC) [address] capsule Type 2 diabetes mellitus with cardiac complication (HCC) Now 8.4 Insomnia Relevant Medications diazePAM (Valium) 5 MG tablet Ischemic cardiomyopathy Sees Cardiology Regularly and has no current needs or complaints Type 2 diabetes mellitus with diabetic autonomic (poly)neuropathy (HCC) No Tobacco use Follow ADA 1800 diet low carbohydrate Continue Med Compliance Goal LDL less than 100Goal BP 130/80 Goal HgbA1c < 7.0% Monitor Feet, monitor for infection Needs Exercise Yearly eye exams Prior to your visit today we reviewed your chart and outlined testing and treatment needed foryour care. Reviewed poissble complications of diabetes including, loss of vision, kidney failure and increased risk of heart attacks and stroke. We made recommendations on how to control your blood sugars, and minimize your risk of these complications. We discussed your current barriers to a healthy living and importance of healthy diet and exercise. Relevant Orders Microalbumin / creatinine urine ratio POCT Glycated hemoglobin, total (Completed) Type 2 diabetes mellitus without complication, with long-term current use of insulin ([facility]) Reduce sugars Fluid level behind tympanic membrane of left ear Relevant Medications meclizine (Antivert) 25 MG tablet Type 2 diabetes mellitus with foot ulcer (CODE) (HCC) Toe removed left great toe Other Visit Diagnoses Screening PSA (prostate specific antigen) - Primary Relevant Orders PSA Follow up with Dr. Gladis Gibson in 3 months (on 05/15/2025). documented in this encounter Plan of Treatment NameTypePriorityAssociated DiagnosesOrder ScheduleMicroalbumin / creatinine urine ratioLabRoutine Type 2 diabetes mellitus with diabetic autonomic neuropathy, with long-term current use of insulin (HCC) Expected: 02/14/2025 (Approximate), Expires: 02/14/2026PSALabRoutine Screening PSA (prostate specific antigen) Expected: 05/15/2025 (Approximate), Expires: 02/14/2026documented as of this encounter Procedures Procedure NamePriorityDate/TimeAssociated DiagnosisCommentsPOCT GLYCATED HEMOGLOBIN, JSEMHWjmghqa92/23/2025 3:29 PM EST Type 2 diabetes mellitus with diabetic autonomic neuropathy, with long-term current use of insulin (HCC) documented in this encounter Results * (ABNORMAL) POCT Glycated hemoglobin, total (02/14/2025 3:29 PM EST)Component ValueRef RangeTest MethodAnalysis TimePerformed AtPathologist Signature Hemoglobin A1C8.4Specimen (Source)Anatomical Location / LateralityCollection Method / VolumeCollection TimeReceived HluxMbwop87/23/2025 3:29 PM EST Narrative Authorizing ProviderResult TypeResult StatusGladis Gibson MDPOINT OF CARE TEST ENTER/EDIT ORDERABLESFinal Result documented in this encounter Visit Diagnoses Diagnosis Screening PSA (prostate specific antigen)- Primary Special screening for malignant neoplasm of prostate Type 2 diabetes mellitus with diabetic autonomic neuropathy, with long-term current use of insulin (HCC) Fluid level behind tympanic membrane of left ear Primary insomnia Persistent disorder of initiating or maintaining sleep Gastroesophageal reflux disease without esophagitis Esophageal reflux Ischemic cardiomyopathy Other specified forms of chronic ischemic heart disease Type 2 diabetes mellitus with cardiac complication (HCC) Type 2 diabetes mellitus with foot ulcer (CODE) (HCC) Type 2 diabetes mellitus without complication, with long-term current use of insulin (HCC) documented in this encounter Care Teams Team MemberRelationshipSpecialtyStart DateEnd Date Gladis Gibson MD [address] [facility] [address] [place] [address] [facility] - [facility]22 Zenia Christina NP [address] [facility] [address] [place] [address] PCP - Barbara Vides11/23/24documented as of this encounter
--- OUTSIDE RECORDS SUMMARY | 2025-02-22 15:47 | XMS_ITS | Clinical Summary ---
Author Organization [facility] Address 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 Pt takes 1-2 tab at HS, may take up to 6 / daily.Active lisinopril (PRINIVIL;ZESTRIL) 2.5 MG tablet Take 2.5 mg by mouth daily.Active clopidogrel (PLAVIX) 75 MG tablet Take 75 mg by mouth daily.Active insulin glargine (LANTUS SOLOSTAR) 100 UNIT/ML injection Inject 35 Units into the skin daily.Active simvastatin (ZOCOR) 20 MG tablet Take 20 mg by mouth nightly.Active meclizine (ANTIVERT) 25 MG tablet Take 25 mg by mouth 3 times daily as needed.Active docusate sodium (COLACE) 100 MG capsule Take 100 mg by mouth 2 times daily.Active aspirin 81 MG EC tablet Take 81 mg by mouth daily.Active carvedilol (COREG) 12.5 MG tablet Take 12.5 mg by mouth 2 times daily (with meals).Active Active Problems ProblemNoted DateDiagnosed DateAbdominal pain05/03/2013 Family History RelationNameStatusCommentsBrother 1AliveBrother 2AliveFatherDeceasedMotherAlive SisterAlive Social History Tobacco UseTypesPacks/DayYears UsedDateSmoking Tobacco: NyifhoCoeqnsifge546 Smokeless Tobacco: FormerAlcohol UseStandard Drinks/WeekCommentsYes0 (1 standard drink = 0.6 oz pure alcohol) Weekends-Beer Sex and Gender InformationValueDate RecordedSex Assigned at BirthNot on fileLegal WnmQlxd7704/04/2012 12:34 PM EST Gender IdentityNot on fileSexual OrientationNot on file Last Filed Vital Signs Vital SignReadingTime TakenCommentsBlood Jnyvvglm324/8305/03/2013 11:22 AM EDT Cgudo469005/03/2013 11:22 AM XEYSjhmtcxbhjr14.7 ??C (98 ??F)05/03/2013 11:22 AM EDTRespiratory Gxjl089205/03/2013 11:22 AM EDTOxygen Saturation--Inhaled Oxygen Concentration--Gormta83 kg (196 lb 3.2 oz)05/03/2013 11:22 AM SJFZlftfe111.9 cm (6')05/03/2013 11:22 AM EDTBody Mass Index26.61005/03/2013 11:22 AM EDT Plan of Treatment Not on file Care Teams Team MemberRelationshipSpecialtyStart DateEnd Date Wilfrido Kidd DO PCP - General04/28/13
--- NOTE | 2025-02-22 15:48 | CA_ITS ---
Patient Name: LEIDA HOU MR#: [id number] : 1965 Exam Date: 02/22/2025 Ordering Doctor: DR ASHIA FLEMING M.D. ECHOCARDIOGRAM REPORT PROCEDURE: CA ECHO DOPPLER COMPLETE INDICATIONS: Chronic systolic heart failure COMPARISON: None. DESCRIPTION: COMPLETE ECHOCARDIOGRAM Real-time transthoracic echocardiography with 2D, M-mode, spectral and color flow Doppler performed. QUALITY: Technical quality was good. LEFT VENTRICLE: Mild dilatation. Thickened septal wall. Mild eccentric hypertrophy. Global left ventricular systolic function is severely decreased. Visual estimation of left ventricular ejection fraction is 20-25%. Global hypokinesis. Global longitudinal myocardial strain is significantly reduced at -8.3%. LV EF: Severely reduced left ventricular ejection fraction, (20-25%). DIASTOLIC: ATRIAL SEPTUM: LEFT ATRIUM: Mild dilatation. RIGHT ATRIUM: Mild dilatation. RIGHT VENTRICLE: Normal chamber size. Normal right ventricular systolic function. Pacer wire present. TRICUSPID VALVE: Normal mobility and thickness. No stenosis with no regurgitation. No evidence of pulmonary hypertension. Unable to calculate right ventricular systolic pressure due to lack of measurable tricuspid regurgitation. MITRAL VALVE: Mildly thickened with normal mobility. Mild mitral valve stenosis. Trivial mitral regurgitation. Mitral valve ring repair is well seated in the mitral position. Mean gradient 5 mmHg with a heart rate of 84 bpm. AORTIC VALVE: Normal trileaflet appearance. Thickened aortic valve. Normal leaflet mobility. No evidence of aortic valve stenosis. Trivial aortic regurgitation. AORTIC ROOT: Moderately dilated. The aortic root measures 4.5 cm. The ascending aorta is normal in size and measures 3.3 cm. PULMONIC VALVE: Normal thickness and mobility. No stenosis. Trivial regurgitation. PERICARDIUM: No evidence of pericardial effusion. IVC: Collapses with inspirations. The IVC measures 1.5 cm. PLEURA: CONCLUSION: 1. Mild eccentric left ventricular hypertrophy with severely reduced systolic function. Estimated LVEF is 20 to 25%. 2. Normal right ventricular size and systolic function. 3. Mitral valve status post ring repair with trivial regurgitation and normal Doppler flows. 4. Mild biatrial dilatation. 5. Moderately dilated aortic root measuring 4.5 cm with normal size ascending aorta. Adult Echocardiography Procedure Report Left Ventricle LVEDD (3.7 - 5.6 cm): 5.84 cm LVESD (2.2 - 4.0 cm): 5.24 cm LVIVS thickness (0.6 - 1.2 cm): 1.20 cm LVPW thickness (0.5 - 1.0 cm): 1.00 cm e': 0.07 m/s E - e': 17.73 LVOT Max Gradient: 1.37 mm[Hg] LVOT Area (cm2): 0.59 m/s Peak Velocity (LVOT): 0.59 m/s Mean Velocity (LVOT): 0.38 m/s LVOT Diameter 2.21 cm Left Ventricular Ejection Fraction: 20-25 % Left Atrium LA Volume Index (2D A2C): 38.63 ml/m2 Left Atrium Systolic Dimension: 4.08 cm Mitral Valve MV E to A Ratio: 0.86 Mitral Valve A-Wave Peak Velocity: 1.41 m/s Mitral Valve E-Wave Peak Velocity: 1.21 m/s Right Ventricle RV Internal Diastolic Dimension: 3.39 cm Aorta AO Root Diam: 4.49 cm Ascending Ao Diam: 3.31 cm Aortic Valve AoV Area (Peak Martín): 2.08 cm2, 2.08 cm2 AoV Area (VTI): 2.72 cm2, 2.72 cm2 Peak Velocity(Antegrade Flow): 1.08 m/s Peak Gradient(Antegrade Flow): 4.70 mm[Hg] Mean Velocity(Antegrade Flow): 0.71 m/s Mean Gradient(Antegrade Flow): 2.36 mm[Hg] Velocity Time Integral: 17.06 cm Tricuspid Valve Pulmonic Valve Mean Gradient: 1.95 mm[Hg], 1.89 mm[Hg], 1.54 mm[Hg] Mean Velocity: 0.66 m/s, 0.64 m/s, 0.58 m/s Peak Velocity: 0.87 m/s Peak Gradient: 3.21 mm[Hg], 3.21 mm[Hg], 2.66 mm[Hg] Right Atrium Right Atrium Systolic Pressure: 50.17 ml, 50.17 ml Dictated by: Ashia Fleming M.D. on 02/22/2025 at 17:08 Approved by: Ashia Fleming M.D. on 02/22/2025 at 17:18
--- OUTSIDE RECORDS SUMMARY | 2025-02-22 15:48 | XMS_ITS | Clinical Summary ---
Author Organization [facility] Address [address] [place] [address] Care Team Providers Care Fiber Product Cutting Machine Operator Name Role Phone Gladis Gibson MD Primary Care Provider [phone] Allergies Active AllergyReactionsCriticalityNoted DateCommentsAtorvastatinOtherMedium 02/10/2014CodeineNausea Only,Nausea And Vomiting,RbwbxEmow96/11/2014 Pt. States causes nausea Medications MedicationSigDispense QuantityRefillsLast FilledStart DateEnd DateStatus aspirin 81 mg EC tablet Take 81 mg by mouth 1 (one) time.Active insulin glargine (Lantus) 100 unit/mL (3 mL) pen 1 (one) time each day at the same time.Active gabapentin (Neurontin) 300 mg capsule Take 300 mg by mouth if needed.12/20/2021ctive NovoLOG U-100 Insulin aspart 100 unit/mL injection Inject 3 Units under the skin with breakfast, with lunch, and with evening meal. 11/12/2021ctive omeprazole (PriLOSEC) [address] capsule Take by mouth in the morning.12/19/2021ctive meclizine (Antivert) 25 mg tablet Take 25 mg by mouth if needed for dizziness.Active baclofen (Lioresal) 10 mg tablet Take 10 mg by mouth if needed in the morning and at bedtime.07/29/2023ctive Tresiba FlexTouch U-200 200 unit/mL (3 mL) injection pen INJECT 56 UNITS UNDER THE SKIN AT BEDTIMEActive amLODIPine (Norvasc) 5 mg tablet Take 5 mg by mouth in the morning.Active empagliflozin (Jardiance) 25 mg Indications:Chronic systolic heart failure (CMS/HCC)Take 1 tablet (25 mg) by mouth once daily as directed. 90 tablet 4Active clopidogrel (Plavix) 75 mg tablet Take 75 mg by mouth in the morning.Active diazePAM (Valium) 5 mg tablet Take 5 mg by mouth.5Active ezetimibe (Zetia) 10 mg tablet Indications:Mixed hyperlipidemia,Coronary artery disease involving chitimacha coronary artery of chitimacha heart without angina pectorisTAKE 1 TABLET (10 MG) BY MOUTH ONCE DAILY DIRECTED. 90 tablet 5Active rosuvastatin (Crestor) 20 mg tablet Indications:HypertriglyceridemiaTake 1 tablet (20 mg) by mouth at bedtime. 90 tablet 502/6Active carvedilol (Coreg) 25 mg tablet Indications:Chronic systolic heart failure (CMS/HCC)Take 1 tablet (25 mg) by mouth with breakfast and with evening meal. 180 tablet 5Active sacubitril-valsartan (Entresto) 24-26 mg tablet Indications:Chronic systolic heart failure (CMS/HCC)Take 1 tablet by mouth two times daily. 180 tablet /6Active Active Problems ProblemNoted DateDiagnosed DateGangrene associated with diabetes mellitus 01/13/2025ED (erectile dysfunction) of organic uvrvdb23/02/2022 Hypertension associated with type 2 diabetes kgbehsav85/02/2022 Overview (10/24/2022): Last Assessment & Plan: Our specific goals, for your hypertension, is to keep your blood pressure less than 140/90, and theimportance of weight control. We made recommendations on [...] taking them as prescribed. DASH diet handouts Qpbgbkfp76/02/2022Seasonal allergic odybynqn45/02/2022 Epigastric pain2Coronary artery disease involving coronary bypass graft of chitimacha heart without angina gsyqzaio83/06/2022 Assessment & Plan (10/24/2022 1:19 PM EDT): Coronary artery disease is stable Continue GDMT continue risk factor modifications- heart healthy diet, regular exercise as tolerated and continue all medications. Assessment & Plan (01/28/2022 12:04 PM EST): -history of CABG -continue medication including aspirin 81mg Tobacco dependence due to chewing vomtvgm5301/28/2022History of mitral valve dwcrpq3901/28/2022 Overview (01/28/2022): 2012 Htoqkrkucaan97/08/2021Diabetic ugmrpypuqy69/12/2021Seasonal bxsmkfifw68/15/2020 Hnjjkxokurilwrsttahp52/13/2019 Assessment & Plan (10/24/2022 1:18 PM EDT): Continue crestor and zetia Lipoprotein deficiency rldruagy96/13/3764Lkiedzxtqdhxjvyw81/13/2019 Nerwfqmnvvqfnlap41/13/2019Poorly controlled diabetes rbcfszae85/13/2019 3Benign hypertensive cardiomyopathy with heart yqhisyx4107/31/2017 Assessment & Plan (10/24/2022 1:20 PM EDT): HTN is 112/67 and well controlled Will compromise with pt to decrease coreg to 25 mg twice a day and explained importance of taking this med twice a day as prescribed, continue all other meds- lisinopril 40 mg daily, and norvasc. Pt sent to lab for blood draw today Assessment & Plan (01/28/2022 12:01 PM EST): Hypertension is worsening, he is not controlled today -reports at home he has readings in 130s - 140s SBP -continue coreg, lisinopril 40, he did tolerate MRA and had cyst develop, I will add amlodipine 5mgdaily -follow up in 3 months Deviated ejcdlm1710/13/2016Fluid level behind tympanic membrane of left ear 10/13/2016Gastroesophageal reflux gtugbli6709/08/2016Generalized ischemic myocardial yhyeobfknxq69/11/2017Autonomic neuropathy due to type 2 diabetes zhnwooui38/03/2017Abdominal pain05/03/2013Conduction disorder of the heart 03/04/2013Cardiac pacemaker in situ12/16/2012 Assessment & Plan (01/28/2022 12:01 PM EST): He has not had device check in over 1 year -will have device check scheduled for month Implantable cardioverter-defibrillator (ICD) in situ12/09/2012Systolic heart iwumxeq9510/15/2012 Assessment & Plan (10/24/2022 1:18 PM EDT): [facility] II Continue GDMT- ASA, coreg, lisinopril, [...] b/p being too low- without any symptoms. Assessment & Plan (01/28/2022 12:04 PM EST): -ECHO last 09/2020, EF 30% -per Anu last note when patient seen in 05/2021, she recommended echo 6 months - will order echo -continue coreg, lisinopril, his PCP is still considering farxiga but patient recently had hypoglycemic episode which result in syncope/fall and admission, unsure if also related to history of chronic alcohol abuse, he is still insulin dependenet -we recommend adding if blood sugar can tolerate per PCP -did not tolera MRA due to cyst development on right breast Abscess of /28/2013Calculus of gallbladder with cholecystitis 12/31/2011Type 2 diabetes mellitus without mmnlzwrvwatg07/07/2012Ventricular qxfzhbyneve39/07/2012 Assessment & Plan (10/24/2022 8:43 AM EDT): stable Littcpvhdhus06/30/2012Mitral valve lgusgjtv72/24/2012 Assessment & Plan (10/24/2022 1:18 PM EDT): echocardiogram ordered and reminded pt to have this completed Diverticulitis of sigmoid colon12/09/2011 Encounters DateTypeDepartmentCare ZigeQokacfekfnv51/21/2025 10:30 AM ESTOffice Visit [address] [address] Sheldon Andrews MD Chronic systolic heart failure (CMS/HCC) (Primary Dx); Coronary artery disease involving chitimacha coronary artery of chitimacha heart without angina pectoris; Mixed hyperlipidemia; History of mitral valve repair; PAD (peripheral artery disease); AICD (automatic cardioverter/defibrillator) present; History of coronary artery bypass tkokttv2201/11/2025 12:15 PM ESTAncillary Procedure [facility] [address] [place] [address] Pre-operative cardiovascular examination, ICD in place01/11/2025Orders Only [facility] [address] [place] [address] Ankush Barrso MD 12/28/[address] [address] Sheldon Andrews MD Zirrgrtjjncyjpqofodb44/04/2025 3:45 PM ESTAncillary Procedure [address] [address] Encounter for implantable defibrillator reprogramming or check12/27/[address] [address] Sheldon Andrews MD Chronic systolic heart failure (CMS/HCC)12/23/[address] [address] Sheldon Andrews MD Mixed hyperlipidemia; Coronary artery disease involving chitimacha coronary artery of chitimacha heart without angina /13/2025 3:30 PM EDTAncillary Procedure [facility] [address] [place] [address] Pre-operative cardiovascular examination, ICD in place11/27/2024[facility] [address] [place] [address] Sheldon Andrews MD Mixed hyperlipidemia; Coronary artery disease involving chitimacha coronary artery of chitimacha heart without angina pectoris; Chronic systolic heart failure (CMS/HCC)11/26/2024[facility] [address] [facility] [address] Rosa Rubalcava CNP Hypertriglyceridemiafrom Last 3 Months Social History Tobacco UseTypesPacks/DayYears UsedDateSmoking Tobacco: FormerCigarettes Smokeless Tobacco: FormerChewAlcohol UseStandard Drinks/WeekCommentsNot Currently0 (1 standard drink = 0.6 oz pure alcohol)says he quit drinking in 2021 [place] Safety & EnvironmentAnswerDate RecordedFear of Current or Ex-PartnerNot on file04/16/2023Emotionally AbusedNot on file04/16/2023hysically AbusedNot on file04/16/2023Sexually AbusedNot on file04/16/2023hysically or Sexually Abused Not on file04/16/2023Sex and Gender InformationValueDate RecordedSex Assigned at BirthNot on fileLegal KnfRwcx7008/21/2021 10:55 PM EDTGender IdentityChoose not to cerxeypn31/30/2025 10:41 PM EDTSexual OrientationChoose not to disclose 09/21/2024 10:41 PM EDT Last Filed Vital Signs Vital SignReadingTime TakenCommentsBlood Dcnimknv478/80103/15/2024 11:00 AM EST Dcoyc225401/13/2025 11:00 AM ESTTemperature--Respiratory Rate--Oxygen Saturation 97%01/13/2025 11:00 AM ESTInhaled Oxygen Concentration--Urvwov16.4 kg (217 lb) 01/13/2025 11:00 AM UUQAllgfx637 cm (6' 2 )01/13/2025 11:00 AM ESTBody Mass Index27.8601/13/2025 11:00 AM EST Plan of Treatment Health MaintenanceDue DateLast DoneCommentsCT Mfxqeqfltqbh28/15/1964Diabetes: Hemoglobin A1C1963FIT-DNA1963FIT1963FOBT1963 Ylxucsuyofsxb84/15/1964Diabetes: Retinopathy Wyjjzdkgx75/15/1974Depression Vjgdiksrb49/15/1976Pneumococcal Vaccine: Pediatrics (0 to 5 Years) and At-Risk Patients (6 to 64 Years) (1 of 2 - PCV)09/06/1982Zoster Vaccines (1 of 2) 09/06/2013Diabetes: Urine Protein Fkpqlqwss613COVID-19 Vaccine ( - season)/12/2020, 06/03/2020, 05/07/2020Influenza Vaccine (#1)9385Aoyyzzbasgh46/07/202609/08/2015Colorectal Cancer Screening 6Adult Txvjvgm61/, 08/29/2017HIB VaccinesAged OutNo longer eligible based on patient's age to complete this topicHPV VaccinesAged OutNo longer eligible based on patient's age to complete this topicIPV Vaccines Aged OutNo longer eligible based on patient's age to complete this topic Meningococcal B VaccineAged OutNo longer eligible based on patient's age to complete this topicMeningococcal VaccineAged OutNo longer eligible based on patient's age to complete this topicRotavirus VaccinesAged OutNo longer eligible based on patient's age to complete this topic Medical Devices ImplantedTypeAreaManufacturerDevice IdentifierShelf Expiration DateModel / Serial / [id number] Vigilant El Icd [id number] Implanted:08/30/2019 (Quantity not on file)[id number] VIGILANT EL ICD / [id number] / [id number] Durata Sj4 [id number] Implanted:12/01/2012 (Quantity not on file)[id number] DURATA SJ4 / [id number] / Procedures Procedure NamePriorityDate/TimeAssociated DiagnosisCommentsCARDIAC DEVICE CHECK CHECK - UJPLKRYjjidof19/21/2025 9:12 AM EST Pre-operative cardiovascular examination, ICD in place CARDIAC DEVICE CHECK CHECK - OHMILCKuacuwi21/19/2025 12:03 PM EST Pre-operative cardiovascular examination, ICD in place CARDIAC DEVICE CHECK - REMOTE - POMVemhyxa81/19/2025 12:00 AM ESTCARDIAC DEVICE CHECK - IN CLINIC - ICD SINGLE CHAMBER W/ IXJFRxuacfi30/07/2025 11:56 AM EST Encounter for implantable defibrillator reprogramming or check from Last 3 Months Results * CARDIAC DEVICE CHECK - REMOTE - ICD (01/13/2025 9:12 AM EST) Only the most recent of2 resultswithin the time period is included. Specimen (Source)Anatomical Location / LateralityCollection Method / Volume Collection TimeReceived Time Narrative Authorizing ProviderResult TypeResult StatusPaul Darrian [facility] IMPLANTABLE CARDIAC DEVICE PROCEDURESFinal ResultPerforming OrganizationAddressCity/State/ZIP Code Phone Number CPACS * Cardiac device check - Remote ICD (01/11/2025 12:00 AM EST)Anatomical Region LateralityModalityOtherSpecimen (Source)Anatomical Location / Laterality Collection Method / VolumeCollection TimeReceived Time01/11/2025 Narrative Authorizing ProviderResult TypeResult StatusAbhisraji Papo [facility] [place] IMPLANTABLE CARDIAC DEVICE PROCEDURESFinal Result * CARDIAC DEVICE CHECK - IN CLINIC - ICD SINGLE CHAMBER W/ PROG (12/30/2024 11:56 AM EST)Anatomical RegionLateralityModalityOtherSpecimen (Source) Anatomical Location / LateralityCollection Method / VolumeCollection Time Received Time Narrative 01/04/2025 12:36 PM EST Normal device function Authorizing ProviderResult TypeResult StatusPaul Darrian [facility] [place] IMPLANTABLE CARDIAC DEVICE PROCEDURESFinal Result from Last 3 Months Insurance Care Teams Team MemberRelationshipSpecialtyStart DateEnd Date Gladis Gibson MD [address] [facility] PCP - Zbyhxou20/6/22
--- OUTSIDE RECORDS SUMMARY | 2025-02-22 15:48 | XMS_ITS | Clinical Summary ---
Author Organization [employer] Address [id number] [place] [address] Care Team Providers Care Recycling Or Rubbish Collector Name Role Phone Gladis Gibson MD Primary Care Provider [phone] Allergies Active AllergyReactionsCriticalityNoted BxszYlgssxxvMiscajzCptmif05/21/2017 Medications MedicationSigDispense QuantityRefillsLast FilledStart DateEnd DateStatus meclizine (ANTIVERT) 25 mg tablet Take by mouth.Active carvedilol (COREG) 12.5 mg tablet Take by mouth.Active lisinopril (PRINIVIL,ZESTRIL) 2.5 mg tablet Take by mouth.Active omeprazole (PriLOSEC) 20 mg capsule Take 20 mg by mouth once daily.Active simvastatin (ZOCOR) 20 mg tablet Take by mouth.Active fluticasone (FLONASE) 50 mcg/actuation nasal spray Administer 1 spray into each nostril daily.Active albuterol (PROVENTIL HFA;VENTOLIN HFA) 90 mcg/actuation inhaler Inhale 2 puffs every 6 (six) hours as needed for wheezing.Active amoxicillin-pot clavulanate (AUGMENTIN) 125-31.25 mg/5 mL suspension Take by mouth 2 (two) times a day.Active LORazepam (ATIVAN) 1 mg tablet Indications:AnxietyTake 1 tablet (1 mg total) by mouth every 6 (six) hours as needed for anxiety (One tablet per mouth1 hour prior to procedure). 30 tablet Active ofloxacin (FLOXIN) 0.3 % otic solution Indications:AnxietyAdminister 4 drops into ears 2 (two) times a day. 10 mL Active Active Problems ProblemNoted DateDiagnosed DateFluid level behind tympanic membrane of left ear 10/13/2016Deviated btques3610/13/2016 Family History Medical HistoryRelationNameCommentsHeart diseaseFatherHeart diseaseMother RelationNameStatusCommentsFatherMother Social History Tobacco UseTypesPacks/DayYears UsedDateSmoking Tobacco: NeverAlcohol UseStandard Drinks/WeekCommentsNot Asked0 (1 standard drink = 0.6 oz pure alcohol)Childcare AnswerDate TmcfjwizOskazoftbYmyvlym49/12/2019EmploymentAnswerDate Recorded XptgxckkgfQwcfglx16/12/2019Purpose - LifeAnswerDate RecordedPurpose and direction in dqfoImffhaz48/11/2021ex and Gender InformationValueDate Recorded Sex Assigned at BirthNot on fileLegal MkcHgxw8909/28/2014 11:44 AM EDTGender IdentityNot on fileSexual OrientationNot on file Last Filed Vital Signs Vital SignReadingTime TakenCommentsBlood Zjzwjnoe907/7808 3:12 PM EDT Pulse--Temperature--Respiratory Rate--Oxygen Saturation--Inhaled Oxygen Concentration--Vtkofo60.3 kg (188 lb)10/13/2016 3:12 PM ELSMsbbnq487.9 cm (6') 10/13/2016 3:12 PM EDTBody Mass Index25.508 3:12 PM EDT Plan of Treatment Health MaintenanceDue DateLast DoneCommentsDepression Tljzwcijv56/15/1976Tobacco Iwzpxztrx59/15/1976Adult BMI Imoumlvqq67/15/1982DTaP,Tdap and Td Vaccines (1 - Tdap)09/06/1982Zoster (Shingles) Vaccine (1 of 2)09/06/2013Influenza Vaccine 10/24/2024RSV ( or age 60+ yrs) (1 - 1-dose 75+ series)09/06/2038 Medical Devices Not on file Insurance MemberSubscriberPlan / Payer (Effective 2016-Present)Name:Tone Cerrato Relation to Subscriber:SelfName:Tone Cerrato Payer ID:Not on file Type:Not on file Address: [address] [place] [id number] Care Teams Team MemberRelationshipSpecialtyStart DateEnd Date Gladis Gibson MD [facility] [place] [address] PCP - Generalmily Medicine08/24/19
--- OUTSIDE RECORDS SUMMARY | 2025-02-22 15:48 | XMS_ITS | Encounter Summary ---
Author Organization [facility] Address [address] [facility] [place] [address] Care Team Providers Care Putty Worker Name Role Phone Gladis Gibson MD Primary Care Provider [phone] Zenia Christina [employer] CLASSROOM TEACHER Unavailable [phone] Encounter Details DateTypeDepartmentCare Team (Latest Contact Info)Xidpbcydejq80/23/2025Travel Social History Tobacco UseTypesPacks/DayYears UsedDateSmoking Tobacco: NeverSmokeless Tobacco: CurrentChewAlcohol UseStandard Drinks/WeekCommentsNot Currently0 (1 standard drink = 0.6 oz pure alcohol)PHQ-2AnswerDate RecordedPatient Health Questionnaire-2 Pcyvf15004/17/2024Sex and Gender InformationValueDate RecordedSex Assigned at BirthNot on fileLegal RbwXmkb0005/07/2022 7:30 PM EDTGender Identity Not on fileSexual OrientationNot on filedocumented as of this encounter Plan of Treatment Not on file documented as of this encounter Visit Diagnoses Not on filedocumented in this encounter Care Teams Team MemberRelationshipSpecialtyStart DateEnd Date Gladis Gibson MD [address] [place] [address] PCP - GeneralFamily Medicine09/22/22 Zenia Christina NP [address] [place] [address] PCP - Kalkaskajose Vides11/23/24documented as of this encounter
--- OUTSIDE RECORDS SUMMARY | 2025-02-22 15:48 | XMS_ITS | Clinical Summary ---
Author Organization [facility] Healthcare Address [address] [place] [address] Care Team Providers Care Truss Assembler Name Role Phone Gladis Gibson MD Primary Care Provider [phone] Zenia Christina NP Unavailable [phone] Allergies Active AllergyReactionsCriticalityNoted KromKhhvvcuaXqgqbkezqnamIsckdx03/19/2014 Other Reaction(s): other CodeineNausea Only09/15/2022 Medications MedicationSigDispense QuantityRefillsLast FilledStart DateEnd DateStatus aspirin (ASPIR) 81 MG EC tablet Indications:Type 2 diabetes mellitus with diabetic autonomic neuropathy, with long-term current use of insulin (HCC)1 (one) time each day at the same time. Active carvedilol (Coreg) 25 MG tablet Indications:Primary insomniaevery 12 (twelve) hours.Active rosuvastatin (Crestor) 20 MG tablet Indications:Type 2 diabetes mellitus with diabetic autonomic neuropathy, with long-term current use of insulin (HCC)1 (one) time each day at the same time. Active ezetimibe (Zetia) 10 MG tablet Indications:HypertriglyceridemiaTake 1 tablet (10 mg) by mouth Daily 100 tablet ctive sacubitril-valsartan (Entresto) 24-26 MG tablet Take 1 tablet by mouth in the morning and 1 tablet in the evening.08/18/2023 Active amLODIPine (Norvasc) 5 MG tablet Take 5 mg by mouth in the morning.Active Insulin Syringe-Needle U-100 (BD Veo Insulin Syringe U/F) 31G X 15/64 0.5 ML misc Indications:Type 2 diabetes mellitus with diabetic autonomic neuropathy, with long-term current use of insulin ([facility])Infuse 1 Device into a venous catheter in the morning and 1 Device at noon and 1 Device in the evening and 1 Device before bedtime. 400 each 4Active albuterol HFA 90 mcg/act inhaler Indications:Acute bronchitis, unspecified organismINHALE 2 PUFFS EVERY 4 (FOUR) HOURS IF NEEDED FOR WHEEZING OR SHORTNESS OF BREATH. 18 g 506Active clopidogrel (Plavix) 75 MG tablet Take 75 mg by mouth Daily5Active pen needle 30G x 8 mm [facility] Indications:Type 2 diabetes mellitus with diabetic autonomic neuropathy, with long-term current use of insulin ([facility])Use as instructed 270 each 5Active empagliflozin (Jardiance) 25 MG Indications:Type 2 diabetes mellitus with diabetic autonomic neuropathy, with long-term current use of insulin ([facility])Take 1 tablet (25 mg) by mouth in the morning. 30 tablet 1105Active baclofen (Lioresal) 10 MG tablet Indications:Type 2 diabetes mellitus with diabetic autonomic neuropathy, with long-term current use of insulin ([facility])TAKE 1 TABLET (10 MG) BY MOUTH 2 TIMES A DAY NEEDED FOR MUSCLE SPASMS NEEDED 180 tablet 5Active Continuous Glucose Sensor (FreeStyle Shazia 3 Plus Sensor) [facility] Indications:Poorly controlled diabetes mellitus (HCC)1 each every 14 (fourteen) days 12 each 5Active tiZANidine (Zanaflex) 4 MG tablet Indications:Muscle spasm of backTake 1 tablet (4 mg) by mouth every 6 (six) hours if needed for muscle spasms for up to 10 days 30 tablet 5Active gabapentin (Neurontin) 600 MG tablet Indications:Diabetic polyneuropathy associated with type 2 diabetes mellitus ([facility])TAKE 1 TABLET BY MOUTH THREE TIMES A DAY 270 tablet 5Active diazePAM (Valium) 5 MG tablet Indications:Primary insomniaTake 1 tablet (5 mg) by mouth 1 (one) time each day at the same time PRN 30 tablet 5Active omeprazole (PriLOSEC) [address] capsule Indications:Gastroesophageal reflux disease without esophagitisTake 1 capsule (20 mg) by mouth in the morning. Take before meals. Do not crush or chew. 100 capsule 5Active meclizine (Antivert) 25 MG tablet Indications:Fluid level behind tympanic membrane of left ear1 tablet as needed Orally every 4-6 hours as needed for 90 days 30 tablet 1125Active insulin aspart (NovoLOG FLEXPEN) 100 UNIT/ML pen Indications:Type 2 diabetes mellitus with foot ulcer (CODE) ([facility])Inject 40 Units under the skin in the morning and 40 Units at noon and 40 Units in the evening. Inject with meals./ctive insulin degludec (Tresiba FlexTouch) 200 UNIT/ML injection Indications:Type 2 diabetes mellitus without complication, with long-term current use of insulin ([facility])Inject 66 Units under the skin at incwsvg5302/14/2025 Active meclizine (Antivert) 25 MG tablet Indications:Fluid level behind tympanic membrane of left ear1 tablet as needed Orally every 4-6 hours as needed for 90 days 30 tablet Discontinued(Reorder) diazePAM (Valium) 5 MG tablet Indications:Primary insomniaTake 1 tablet (5 mg) by mouth 1 (one) time each day at the same time PRN 30 tablet Discontinued(Reorder) insulin degludec (Tresiba FlexTouch) 200 UNIT/ML injection Indications:Type 2 diabetes mellitus without complication, with long-term current use of insulin ([facility])INJECT 56 UNITS UNDER THE SKIN AT BEDTIME 9 mL 50Discontinued(Reorder) insulin aspart (NovoLOG FLEXPEN) 100 UNIT/ML pen Indications:Type 2 diabetes mellitus with foot ulcer (CODE) ([facility])Inject 30 Units under the skin in the morning and 30 Units at noon and 30 Units in the evening. Inject with meals. 100 mL Discontinued(Reorder) omeprazole (PriLOSEC) [address] capsule Indications:Gastroesophageal reflux disease without esophagitisTAKE 1 CAPSULE BY MOUTH EVERY DAY AT THE SAME TIME EACH DAY 100 capsule Discontinued(Reorder) Active Problems ProblemNoted DateDiagnosed DateType 2 diabetes mellitus with foot ulcer (CODE) 02/14/2025 Assessment & Plan (02/14/2025 3:37 PM EST): Toe removed left great toe Gangrene associated with diabetes ivfqwhme19/21/2025therosclerosis of [place] coronary artery without angina oulimamf46/24/2023hronic GERD09/15/2022 Gastroesophageal reflux disease without pwisxiemdpm82/24/2023laudication 09/15/2022iabetic ixxdwkpjix16/24/2023ED (erectile dysfunction) of organic udsfsm5309/15/2022Type 2 diabetes mellitus with cardiac aahgftkzzamm50/24/2023 Assessment & Plan (02/14/2025 3:29 PM EST): Now 8.4 Assessment & Plan (09/22/2022 10:41 AM EDT): [...] taking them as prescribed. DASH diet handouts Qendphkgrdzpkqhzeotp65/24/9386Sdfndcjt45/24/2023Ischemic cardiomyopathy 09/15/2022 Assessment & Plan (02/14/2025 3:26 PM EST): Sees Cardiology Regularly and has no current needs or complaints Lipoprotein deficiency iadtuabm04/24/1618Nzygrxnnvngobgyh61/24/2023oorly controlled diabetes /24/2023Seasonal allergic /24/2023 Seasonal slqhmrynz82/24/9287Wknsltxeewiowwjp34/24/2023Type 2 diabetes mellitus with diabetic autonomic (poly)/24/2023 Assessment & Plan (02/14/2025 3:27 PM EST): No Tobacco use Follow ADA 1800 diet [...] healthy diet and exercise. Assessment & Plan (05/16/2024 2:40 PM EDT): [...] and importance of healthy diet and exercise. Type 2 diabetes mellitus without complication, with long-term current use of mpqrzua6709/15/2022 Assessment & Plan (02/14/2025 3:37 PM EST): Reduce sugars Epigastric pain01/28/2022History of mitral valve ogiwyy0001/28/2022 Overview (01/18/2023): 2012 Tobacco dependence due to chewing kzbidmx0201/28/2022enign hypertensive cardiomyopathy with heart lvjckwr7107/31/2017 Overview (01/18/2023): Last Assessment & Plan: HTN is 112/67 and well controlled Will compromise with pt to decrease coreg to 25 mg twice a day and explained importance of taking this med twice a day as prescribed, continue all other meds- lisinopril 40 mgdaily, and norvasc. Pt sent to lab for blood draw today Deviated lxeous1510/13/2016Fluid level behind tympanic membrane of left ear 10/13/2016Autonomic neuropathy due to type 2 diabetes gyzugnvi71/03/2017 Abdominal pain05/03/2013Conduction disorder of the heart03/04/2013Cardiac pacemaker in situ12/16/2012 Overview (01/18/2023): Last Assessment & Plan: He has not had device check in over 1 year -will have device check scheduled for month Implantable cardioverter-defibrillator (ICD) in situ12/09/2012Systolic heart fpfzvso3710/15/2012 Overview (01/18/2023): Last Assessment & Plan: [facility] [...] too low- without any symptoms. Abscess of pihanujygo73/28/2013 Overview (01/18/2023): INTRAPERITONEAL ABSCESS Calculus of gallbladder with jwjcbafdrllgp73/07/2012Congestive heart failure 12/31/2011Ventricular krqheamwatn11/07/2012 Overview (01/18/2023): Last Assessment & Plan: stable SINUS Gitdwzoepwmf21/30/2012Mitral valve tuvfasra62/24/2012 Overview (01/18/2023): Last Assessment & Plan: echocardiogram ordered and reminded pt to have this completed S/P RING REPAIR Diverticulitis of sigmoid colon12/09/2011 Overview (01/18/2023): HINCHEY III Encounters DateTypeDepartmentCare PgygZcjilpthwcv92/23/2025 3:00 PM ESTOffice Visit [facility] [address] [facility] [address] [place] [phone] Gladis Gibsno MD Screening PSA (prostate specific antigen) (Primary Dx); Type 2 diabetes mellitus with diabetic autonomic neuropathy, with long-term current use of insulin (HCC); Fluid level behind tympanic membrane of left ear; Primary insomnia; Gastroesophageal reflux disease without esophagitis; Ischemic cardiomyopathy; Type 2 diabetes mellitus with cardiac complication (HCC); Type 2 diabetes mellitus with foot ulcer (CODE) (HCC); Type 2 diabetes mellitus without complication, with long-term current use of insulin (HCC)02/14/20256300Gzerwl62/03/2025bstract [facility] [address] [facility] [address] [place] [phone] Gladis Gibson MD 01/20/2025Refill [facility] [address] [facility] [address] [place] [address] Zenia Christina, MANISH Diabetic polyneuropathy associated with type 2 diabetes mellitus (HCC)01/15/2025 [facility] [address] [facility] [address] [place] [address] Gladis Gibson MD Gastroesophageal reflux disease without /21/2025bstract [facility] [place] [facility] [address] [facility] [address] [place] [address] Gladis Gibson MD 01/11/2025bstract [facility] [place] [facility] [address] [facility] [address] [place] [address] Gladis Gibson MD 01/11/2025Telephone [facility] [place] [facility] [address] [facility] [address] [place] [address] Gladis Gibson MD 11/23/2024Telephone [facility] [place] [facility] [address] [facility] [address] [place] [address] Yanick Dykes, STACEY from Last 3 Months Immunizations ImmunizationAdministration DatesNext HawESD2110/16/2021Tdap10/16/2021,08/29/2017 Family History Medical HistoryRelationNameCommentsHeart diseaseFatherHeart diseaseMother RelationNameStatusCommentsDaughterAlive1 daughterFatherDeceasedMotherDeceasedSon Alive1 son Social History Tobacco UseTypesPacks/DayYears UsedDateSmoking Tobacco: NeverSmokeless Tobacco: CurrentChew Tobacco Cessation:Ready to Q uit: Not Asked; Counseling Given: Yes Alcohol UseStandard Drinks/WeekCommentsNot Currently0 (1 standard drink = 0.6 oz pure alcohol)PHQ-2AnswerDate RecordedPatient Health Questionnaire-2 Score0 02/14/2025Sex and Gender InformationValueDate RecordedSex Assigned at BirthNot on fileLegal KetUyoe8605/07/2022 7:30 PM EDTGender IdentityNot on fileSexual OrientationNot on file Last Filed Vital Signs Vital SignReadingTime TakenCommentsBlood Evwykhby033/8402/14/2025 3:18 PM EST Hmwgd627402/14/2025 3:18 PM FBEDtutmrqtxxc87.4 ??C (97.5 ??F)09/28/2023 10:35 AM EDTRespiratory Zdnk529110/05/2024 9:08 AM EDTOxygen Tzseqscjrs28%02/14/2025 3:18 PM ESTInhaled Oxygen Concentration--Nxiftg78.9 kg (218 lb)02/14/2025 3:18 PM EST Vvvmxy872.9 cm (6')02/14/2025 3:18 PM ESTBody Mass Index29.5702/14/2025 3:18 PM EST Plan of Treatment Health MaintenanceDue DateLast DoneCommentsPneumococcal Vaccine: Pediatrics (0 to 5 Years) and At-Risk Patients (6 to 64 Years) (1 of 2 - PCV)09/06/1982 Diabetes: Urine Protein Ywnvrsjkv82/07/10583004/01/2022, 07/05/2018Influenza Vaccine (#1)2024Diabetes: Hemoglobin A1C6104/17/2024, 05/16/2024, 12/16/2023, Additional history existsDiabetes: Retinopathy Ckjaituba24/03/2027 01/25/2025, 05/06/20226192ZrnatfaencsHserrxtmhrha22/07/2016Colorectal Cancer ScreeningDiscontinuedCT ColonographyDiscontinuedFIT-DNADiscontinuedFIT DiscontinuedFOBTDiscontinuedSigmoidoscopyDiscontinued Procedures Procedure NamePriorityDate/TimeAssociated DiagnosisCommentsPOCT GLYCATED HEMOGLOBIN, MSLBYIltazys67/23/2025 3:29 PM EST Type 2 diabetes mellitus with diabetic autonomic neuropathy, with long-term current use of insulin (HCC) DIABETIC RETINOPATHY SCREENING - OU - BOTH ECSRPimthdc96/03/2025 1:23 PM EST MICROALBUMIN / CREATININE URINE WJTTLZheckag82/07/2023 2:04 PM EST Type 2 diabetes mellitus with diabetic autonomic neuropathy, with long-term current use of insulin (HCC) MPXCEGBICTTVknfpkg36/07/2016 12:00 PM EDT from Last 3 Months or Most Recently Relevant to Health Maintenance Results * (ABNORMAL) POCT Glycated hemoglobin, total (02/14/2025 3:29 PM EST)Component ValueRef RangeTest MethodAnalysis TimePerformed AtPathologist Signature Hemoglobin A1C8.4Specimen (Source)Anatomical Location / LateralityCollection Method / VolumeCollection TimeReceived OdtnTufnp04/23/2025 3:29 PM EST Narrative Authorizing ProviderResult TypeResult StatusGladis Gibson MDPOINT OF CARE TEST ENTER/EDIT ORDERABLESFinal Result * Diabetic Retinopathy Screening - OU - Both Eyes (01/25/2025 1:23 PM EST) ComponentValueRef RangeTest MethodAnalysis TimePerformed AtPathologist SignatureRESULTSndrAnatomical RegionLateralityModalityHeadOther Narrative Authorizing ProviderResult TypeResult StatusGladis Gibson MDOPHTH PHOTOGRAPHY Final Result * (ABNORMAL) Microalbumin / creatinine, urine ratio (01/29/2023 2:04 PM EST) ComponentValueRef RangeTest MethodAnalysis TimePerformed AtPathologist SignatureCREATININE, RANDOM QBJHZ4052 - 320 mg/dLQUESTALBUMIN, URINE9.7See Note: mg/dLQUESTComment: Reference Range: Reference Range Not established ALBUMIN/CREATININE RATIO, RANDOM NKBUU703(H)<30 mcg/mg creatQUESTComment: The ADA defines abnormalities in albumin excretion as follows: Albuminuria Category ?Result (mcg/mg creatinine) Normal to Mildly increased <30 Moderately increased ? 30-299 Severely increased > OR = 300 The ADA recommends that at least two of three specimens collected within a 3-6 month period be abnormal before considering a patient to be within a diagnostic category. Specimen (Source)Anatomical Location / LateralityCollection Method / Volume Collection TimeReceived TimeUrineUrine specimen obtained by clean catch procedure / Lxrakkf6501/29/2023 2:04 PM EST01/29/2023 2:08 PM EST Narrative Resulting Agency Comment Performing Organization Information ?Site ID: QPT ?Name: [employer] [facility] ?Address: [address] [place] [address], [address] [place] [phone] ?Director: Max Partida MD Authorizing ProviderResult TypeResult StatusKaren M Hemmer PALAB URINE ORDERABLESFinal ResultPerforming OrganizationAddressCity/State/ZIP CodePhone Number [facility] * Colonoscopy (10/31/2015 12:00 PM EDT)Anatomical RegionLateralityModality EndoscopySpecimen (Source)Anatomical Location / LateralityCollection Method / VolumeCollection TimeReceived Time10/31/2015 12:00 PM EDT Narrative 10/31/2015 12:00 PM EDT PERFORMED AT [facility] LOCATION:[id number] severe sigmoid colon diverticulosis, ascending colon adenoma Procedure Note CONVERSION, GENERIC - 07/10/2022 PERFORMED AT [facility] LOCATION:[id number] severe sigmoid colon diverticulosis, ascending colon adenoma Authorizing ProviderResult TypeResult StatusGladis Gibson MDENDOSCOPY PROCEDURE ORDERABLESFinal Result from Last 3 Months or Most Recently Relevant to Health Maintenance Insurance Care Teams Team MemberRelationshipSpecialtyStart DateEnd Date Gladis Gibson MD [address] [facility] [address] [place] [address] PCP - GeneralFamily Medicine09/22/22 Zenia Christina NP [address] [facility] [address] [place] [address] PCP - [place] Gwfbtihsnl70/1/25
--- OUTSIDE RECORDS SUMMARY | 2025-02-22 15:48 | XMS_ITS | Clinical Summary ---
Author Organization [facility] Address [address] [place] [address] Care Team Providers Care Cooperative Education Coordinator Name Role Phone Gladis Gibson MD Primary Care Provider [phone] Allergies Active AllergyReactionsCriticalityNoted DateCommentsCodeineOther: See Comments 03/17/2017 Pt. States causes nausea Medications MedicationSigDispense QuantityRefillsLast FilledStart DateEnd DateStatus carvedilol (COREG) 25 mg tablet Indications:SBO (small bowel obstruction) (HCC),Diverticulosis of large intestine without hemorrhage,Preoperative examinationTake 25 mg by mouth twice daily with meals.Active lisinopril (ZESTRIL, PRINIVIL) 10 mg tablet Indications:SBO (small bowel obstruction) (HCC),Diverticulosis of large intestine without hemorrhage,Preoperative examinationTake 10 mg by mouth once daily.Active rosuvastatin (CRESTOR) 20 mg tablet Indications:SBO (small bowel obstruction) (HCC),Diverticulosis of large intestine without hemorrhage,Preoperative examinationTake 20 mg by mouth once daily.Active omeprazole (PRILOSEC) 20 mg capsule Indications:SBO (small bowel obstruction) (HCC),Diverticulosis of large intestine without hemorrhage,Preoperative examinationTake 20 mg by mouth once daily.Active docusate sodium (STOOL SOFTENER) 100 mg capsule Indications:SBO (small bowel obstruction) (HCC),Diverticulosis of large intestine without hemorrhage,Preoperative examinationTake 100 mg by mouth twice daily.Active aspirin, enteric coated (ASPIRIN, ENTERIC COATED) 81 mg EC tablet Indications:SBO (small bowel obstruction) (HCC),Diverticulosis of large intestine without hemorrhage,Preoperative examinationTake 81 mg by mouth once daily.Active insulin glargine (LANTUS) 100 unit/mL injection Inject 42 Units subcutaneously every morning.Active acetaminophen (TYLENOL) 325 mg tablet Take 2 tablets by mouth every 6 hours as needed for Pain.03/30/2017Active ibuprofen (MOTRIN) 600 mg tablet Take 1 tablet by mouth every 8 hours as needed for Pain.03/30/2017Active Active Problems No known active problems Resolved Problems ProblemNoted DateDiagnosed DateResolved DateSBO (small bowel obstruction) Small bowel yvmtzdvaxlz82 Overview (03/12/2017): Added automatically from request for surgery [id number] Social History Tobacco UseTypesPacks/DayYears UsedDateSmoking Tobacco: FormerSmokeless Tobacco: CurrentArea Deprivation IndexAnswerDate RecordedNational Score (1-100), lower number is lower riskNot on file02/01/2020State Score (1-10), lower number is lower riskNot on file02/01/2020Data from: https://www.neighborhoodatlas.medicine.[facility].edu/. Last address used for calculationNot on file02/01/2020Sex and Gender InformationValueDate RecordedSex Assigned at BirthNot on fileLegal MdwWxuk88/02/2012 10:18 AM ESTGender Identity Not on fileSexual OrientationNot on file Last Filed Vital Signs Vital SignReadingTime TakenCommentsBlood Xzsvmtyd217/76004/07/2017 1:48 PM EST Kfols796904/07/2017 1:48 PM PLSBdozldthfqr45.4 ??C (97.5 ??F)04/07/2017 1:48 PM ESTRespiratory Wnuj277003/30/2017 7:19 AM ESTOxygen Alanigyhis94%03/30/2017 7:19 AM ESTInhaled Oxygen Concentration--Dudomo40.3 kg (181 lb 7 oz)03/30/2017 5:23 AM BAJWvamln066.9 cm (6')03/25/2017 11:00 PM ESTBody Mass Index24.61003/25/2017 11:00 PM EST Plan of Treatment Health MaintenanceDue DateLast DoneCommentsAnxiety Hsldejcym45/15/1982Depression Rpxokqxbf58/15/1982HIV Usbrycqrf99/15/1982Hepatitis C Gahnqgpij54/15/1982 DTaP,Tdap,Td Vaccine (1 - Tdap)09/06/1982Lipid Yrdqsydmo37/15/1999CT Zrtbdqcgapwx17/15/2009Cologuard (FIT-DNA)09/06/20087137Xypsmcyjjrn25/15/2009 Colorectal Cancer Lnrsmlgvd76/15/2009Fecal Occult Blood09/06/2008Prostate Cancer Screening Puqihgfdml23/15/4946Couedmhwnbjti45/15/2009Pneumococcal Vaccine: 50+ (1 of 1 - PCV)09/06/2013Shingrix Vaccine (1 of 2)09/06/2013Diabetes Screening , 03/29/2017, 03/28/2017, Additional history existsCovid-19 Vaccine (1 - 2024- season)2024Influenza Vaccine (#1)2024RSV Vaccine (1 - 1-dose 75+ series)09/06/2038 Procedures Procedure NamePriorityDate/TimeAssociated DiagnosisCommentsBASIC METABOLIC PANEL (EU,FV,HL,TYLER,MM,SP)ASAP03/30/2017 5:48 AM EST from Last 3 Months or Most Recently Relevant to Health Maintenance Results * (ABNORMAL) BASIC METABOLIC PANEL (AK,AV,EU,FV,HL,TYLER,MM,SP) (03/30/2017 5:48 AM EST)ComponentValueRef RangeTest MethodAnalysis TimePerformed AtPathologist SdnwgtuwhYzkgvln178(H)65 - 100 mg/dL03/30/2017 6:43 AM [facility] AZA2133 - 25 mg/dL03/30/2017 6:43 AM ESTFAIRVIEW LABORATORYCreatinine0.900.70 - 1.40 mg/dL03/30/2017 6:43 AM [facility]FA[facility] RCUZSJEKNLOjwmff772609 - 146 mmol/L 03/30/2017 6:43 AM ESTFAIR[facility] LABORATORYPotassium4.73.5 - 5.0 mmol/L 03/30/2017 6:43 AM ESTFA[facility] BAFSGBVFZKGanmikin63480 - 110 mmol/L03/30/2017 6:43 AM ESTFA[facility] RLMEOEVHLISV83230 - 32 mmol/L03/30/2017 6:43 AM EST [facility]ORATORYAnion Qdw495 - 18 mmol/L03/30/2017 6:43 AM ESTFAIRVIEW LABORATORYCalcium8.78.5 - 10.5 mg/dL03/30/2017 6:43 AM ESTFA[facility] eGFR->60>60003/30/2017 6:43 AM ESTFAIRVIEW LABORATORYeGFR-All Other Races>60>60 .03/30/2017 6:43 AM ESTFAIRVIEW LABORATORYSpecimen (Source) Anatomical Location / LateralityCollection Method / VolumeCollection Time Received TimeBlood specimen (specimen)BLOOD SPECIMEN / Okcxlwh1403/30/2017 5:48 AM EST03/30/2017 5:51 AM EST Narrative Authorizing ProviderResult TypeResult StatusBranathaniel Ortega MDLABORATORY REGIONALFinal ResultPerforming OrganizationAddressCity/State/ZIP CodePhone Number [facility] [address] [place] [phone] from Last 3 Months or Most Recently Relevant to Health Maintenance Insurance Care Teams Team MemberRelationshipSpecialtyStart DateEnd Date Gladis Gibson MD [address] [address] [facility] - [facility]03/12/17
--- OUTSIDE RECORDS SUMMARY | 2025-02-22 15:49 | XMS_ITS | CCD ---
Author Organization [facility] Care Team Providers Care Career Development Facilitator Name Role Phone PELON CORTEZ Unavailable Unavailab NEO Roemo Unavailable Unavailable JOSEFINA DAWN (CLAUDIA) Unavailable Unava ilable PELON CORTEZ Unavailable Unavailab PELON Damon Unavailable Unavailab PELON Damon Unavailable Unavailab NOHEMI Hanson Unavailable NOHEMI PHOENIX Primary Care Unavailable UNKNOWN, PROVIDER Attending Unavailable UNKNOWN, PROVIDER Admitting Unavailable MARKER, DR DUNCAN Consulting Unavailable SHAIKH Vale FORD Admitting Unavailable SHAIKH Vale FORD Attending Unavailable LIZETT, DR SONG Primary Care Unavailable LIZETH MOORE Consulting Unavailable SHAIKH aVle FORD Consulting Unavailable ALYSSA YANEZ Consulting Unavailable Nohemi Phoenix MD Unavailable Nohemi Phoenix MD Primary Care Provider NOHEMI PHOENIX Primary Care Physician Yonatan Rosado Attending Unavailable Yonatan Rosado Admitting Unavailable Nohemi Phoenix MD Primary Care Provider Esthela Fields MD Attending Provider Yonatan Rosado Admitting Unavailable Yonatan Rosado Attending Unavailable Nohemi Phoenix Primary Care Unavailable Esthela Fields Attending UnavailEsthela Denney Admitting UnavailEsthela Denney Admitting UnavailNohemi Ford Primary Care Unavailable Esthela Fields Attending UnavailNohemi Ford MD Unavailable CHEVY HERRERA Attending Unavailable NOHEMI PHOENIX Attending Unavailable ZENIA SUMMERS Attending Unavailable DOLCE, YONATAN Cerda Attending Unavailable MELINA, ZENIA Silva Referring Unavailable MELINA, ZENIA Silva Attending Unavailable ESTHELA SUMNER Attending Unavailable MELINA, ZENIA Silva Referring Unavailable [...] Attending Unavailable DOLCE, YONATAN Cerda Attending Unavailable Lizett MORALES, Nohemi Silva Unavailable Lizett MORALES, Nohemi Silva Unavailable Ceferino Kidd MD Unavailable MICKY, TAMIKO Referring Unavailable MICKY, TAMIKO Referring Unavailable MICKY, TAMIKO Referring Unavailable MICKY, TAMIKO Referring Unavailable MICKY, TAMIKO Referring Unavailable MICKY, TAMIKO Referring Unavailable SIA, AMRIT Referring Unavailable SIA, AMRIT Referring Unavailable SIA, AMRIT Referring Unavailable MICKY, TAMIKO Referring Unavailable MICKY, TAMIKO Referring Unavailable MICKY, TAMIKO Referring Unavailable MICKY, TAMIKO Referring Unavailable MICKY, TAMIKO Referring Unavailable MICKY, TAMIKO Referring Unavailable MICKY, TAMIKO Referring Unavailable Allergies Allergy ClassificationReported Allergen(s)Allergy TypeDate of OnsetReaction(s) Facility (20 sources)codeine; Translations: [CODEINE]Drug Sbapdcu21-09-7839Vaectb Only [facility] Repository (2 sources)atorvastatin; Translations: [ATORVASTATIN]Drug Uszosey02-48-6376Twc [facility] Repository (20 sources)atorvastatinDrug Vgazghl38-03-6803[facility] Medications Current Medications MedicationDrug Class(es)DatesSig (Normalized)Sig (Original)acetaminophen 325 mg / oxyCODONE hydrochloride 5 mg oral tablet (10 sources)Opioid AgonistStart: 01-13-2024 End: 45-30-6844rfdk 1 tablet by mouth every six hours for painoxyCODONE- acetaminophen (Percocet) 5-325 MG tablet Indications: Pain Take 1 tablet by mouth every 6(six) hours if needed for severe pain for up to 5 days 15 tablet 01/18/2024 01/23/2024 ActiveStart: 01-04-2024 End: 87-17-9268ogql 1 tablet by mouth every six hours for painoxyCODONE- acetaminophen (Percocet) 5-325 MG tablet Indications: Pain Take 1 tablet by mouth every 6(six) hours if needed for severe pain for up to 5 days 20 tablet 01/04/2024 01/09/2024 [id number] 200 actuat albuterol 0.09 mg/actuat metered dose inhaler (11 sources)beta2-Adrenergic AgonistStart: 03-30-2024 End: 10-26-5471gtnm 2 puff(s) by inhalation every four hours for wheezing albuterol HFA 90 mcg/act inhaler Indications: Acute bronchitis, unspecified organism INHALE 2 PUFFSEVERY 4 (FOUR) HOURS IF NEEDED FOR WHEEZING OR SHORTNESS OF BREATH. 18 g 3 04/21/2024 04/21/2025 ActiveamLODIPine 5 mg oral tablet (20 sources)Dihydropyridine Calcium Channel BlockerStart: 67-85-2007qlur 1 tablet by mouth once dailyAmlodipine 5 mg tablet Active 5 MG PO Daily January 07, 2024 12:00amaspirin 81 mg delayed release oral tablet (20 sources)Platelet Aggregation Inhibitor, Nonsteroidal Anti-inflammatory Drug Start: 05-89-2724slue 1 tablet by mouth once dailyAspirin (Adult Aspirin Regimen) 81 mg tablet,delayed release (DR/EC) Active 81 MG PO Daily January 06, 2024 12:00amaspirin (ASPIR) 81 MG EC tablet Indications: Type 2 diabetes mellitus with diabetic autonomic neuropathy, with long-term current use of insulin (HCC) 1 (one) time each day at the same time. Activeazithromycin 250 mg oral tablet (6 sources)Macrolide AntimicrobialStart: 03-30-2024 End: 37-96-7990rrceuwllzrrw (Zithromax) 250 MG tablet Indications: Acute bronchitis, unspecified organism 2 tabs x1 day, then 1 tab x 4 days 6 tablet 03/30/2024 10/05/2024 Discontinuedbaclofen 10 mg oral tablet (20 sources)gamma-Aminobutyric Acid-ergic AgonistStart: 74-87-2648sxor 1 tablet by mouth twice daily as needed for muscle spasmsbaclofen (Lioresal) 10 MG tablet Indications: Type 2 diabetes mellitus with diabetic autonomic neuropathy, with long-term current use of insulin ([facility]) TAKE 1 TABLET (10 MG) BY MOUTH 2 TIMES A DAY NEEDED FOR MUSCLE SPASMS NEEDED 180 tablet 1 08/22/2024 ActiveStart: 16-98-0544xiyo 1 tablet by mouth twice daily as needed for muscle spasmsbaclofen (Lioresal) 10 MG tablet Indications: Type 2 diabetes mellitus with diabetic autonomic neuropathy, with long-term current use of insulin ([facility]) TAKE 1 TABLET (10 MG) BY MOUTH 2 TIMES A DAYAS NEEDED FOR MUSCLE SPASMS NEEDED 180 tablet 1 02/25/2024 ActiveStart: 78-46-8000kehr 1 tablet by mouth once daily as needed for painBaclofen 10 mg tablet Active 10 MG PO Daily as needed for pain January 06, 2024 12:00amStart: 44-00-1212gppu 1 tablet by mouth twice daily as needed for muscle spasmsbaclofen (Lioresal) 10 MG tablet Indications: Type 2 diabetes mellitus with diabetic autonomic neuropathy, with long-term current use of insulin ([facility]) TAKE 1 TABLET (10 MG) BY MOUTH 2 TIMES A DAYAS NEEDED FOR MUSCLE SPASMS NEEDED 180 tablet 1 08/20/2023 Activecarvedilol 25 mg oral tablet (20 sources)alpha-Adrenergic Supa, beta-Adrenergic BlockerStart: 01-06-2024 take 1 tablet by mouth twice dailyCarvedilol 25 mg tablet Active 25 MG PO Twice daily January 06, 2024 12:00amcarvedilol (Coreg) 25 MG tablet Indications: Primary insomnia every 12 (twelve) hours. Activeclopidogrel 75 mg oral tablet (9 sources)P2Y12 Platelet InhibitorStart: 90-60-4209auxt 1 tablet by mouth once dailyclopidogrel (Plavix) 75 MG tablet Take 75 mg by mouth Daily 04/16/2024 ActiveContinuous Glucose Sensor (FreeStyle Shazia 2 Sensor) [facility] [place] (20 sources)Start: 35-96-8393adggyj 1 dose by subcutaneous injection once Continuous Glucose Sensor (FreeStyle Shazia 2 Sensor) [facility] [place] Indications: Poorly controlled diabetes mellitus ([facility]) Inject 1 each under the skin every 14 (fourteen) days 6 each 3 09/28/2023 ActiveStart: 17-08-5331painox 1 dose by subcutaneous injection onceContinuous Glucose Sensor (FreeStyle Shazia 2 Sensor) [facility] [place] Indications: Poorly controlled diabetes mellitus (CMS/HCC) Inject 1 each under the skin every 14 (fourteen) days 6 each 3 09/28/2023 ActiveContinuous Glucose Sensor (FreeStyle Shazia 3 Plus Sensor) misc (5 sources)Start: 23-31-8805Fvpqwvshkh Glucose Sensor (FreeStyle Shazia 3 Plus Sensor) [facility] [place] Indications: Poorly controlled diabetes mellitus (HCC) 1 each every 14 (fourteen) days 12 each 3 10/07/2024 ActivediazePAM 5 mg oral tablet (20 sources)BenzodiazepineStart: 07-29-2023 End: 30-33-6241wpmz 1 tablet by mouth once daily as neededdiazePAM (Valium) 5 MG tablet Indications: Primary insomnia Take 1 tablet (5 mg) by mouth 1 (one) time each day at the same time PRN 30 tablet 05/16/2024 Activeempagliflozin 25 mg oral tablet (20 sources)Sodium-Glucose Cotransporter 2 InhibitorStart: 10-27-2023 End: 37-77-0036nita 1 tablet by mouth in the morningempagliflozin (Jardiance) 25 MG Indications: Type 2 diabetes mellitus with diabetic autonomic neuropathy, with long-term current use of insulin ([facility]) Take 1 tablet (25 mg) by mouth in the morning. 30tablet 11 05/16/2024 Activeezetimibe 10 mg oral tablet (20 sources)Dietary Cholesterol Absorption InhibitorStart: 89-39-6789eovp 1 tablet by mouth once dailyezetimibe (Zetia) 10 MG tablet Indications: Hypertriglyceridemia Take 1 tablet (10 mg) by mouth Daily 100 tablet 3 07/29/2023 ActiveFlash Glucose Sensor (Freestyle Shazia 2 Sensor) kit (2 sources)Start: 47-63-1642Pmkmb Glucose Sensor (Freestyle Shazia 2 Sensor) kit Active EACH .ROUTE .MEDSUPPLY January 06, 2024 12:00am As directed gabapentin 600 mg oral tablet (20 sources)Anti-epileptic AgentStart: 12-16-2023 End: 34-30-3511cwiq 1 tablet by mouth in the morning, then take 1 tablet by mouth in the evening, then take 1 tablet by mouth at bedtimegabapentin (Neurontin) 600 MG tablet Indications: Diabetic polyneuropathy associated with type 2 diabetes mellitus (HCC) Take 1 tablet (600 mg) by mouth in the morning and 1 tablet (600 mg) in the evening and 1 tablet (600 mg) before bedtime. 270 tablet 3 12/16/2023 ActiveStart: 12-15-2023 End: 56-82-9748mkeo 1 capsule by mouth twice dailygabapentin (Neurontin) 300 MG capsule Indications: Type 2 diabetes mellitus with diabetic autonomicneuropathy, with long-term current use of insulin (CMS/HCC) TAKE 1 CAPSULE BY MOUTH TWICE A DAY 180capsule 1 12/15/2023 12/16/2023 Discontinued (Ineffective)gabapentin (Neurontin) 300 MG capsule Indications: Type 2 diabetes mellitus with diabetic autonomicneuropathy, with long-term current use of insulin (CMS/HCC) 1 capsule every 12 (twelve) hours PRN Activehomatropine methylbromide 0.3 mg/ml / HYDROcodone bitartrate 1 mg/ml oral solution (2 sources)Opioid Agonist, Cholinergic Muscarinic AgonistStart: 03-30-2024 End: 01-97-8344JNUNWlysuow Bit-Homatrop MBr (Hycodan) 5-1.5 MG/5ML solution Indications: Acute cough Take 5 mL by mouth every 6 (six) hours if needed (cough) for up to 10 days 120 mL 03/30/2024 04/09/2024 Activeibuprofen 800 mg oral tablet (20 sources)Nonsteroidal Anti-inflammatory Drugibuprofen 800 MG tablet 2 (two) times a day PRN ActiveInsulin Aspart U-100 (Novolog U-100 Insulin Aspart) 100 unit/mL solution (1 source)Start: 66-31-3851bxpkma 3 [IU] by subcutaneous injection once before mealtimeInsulin Aspart U-100 (Novolog U-100 Insulin Aspart) 100 unit/mL solution Active 3 UNIT SUBCUT 3x/Day before meals January 06, 2024 12:00am3 ml insulin aspart, human 100 unt/ml pen injector (20 sources)Insulin AnalogStart: 20-63-7914skjkuxg aspart (NovoLOG FLEXPEN) 100 UNIT/ML pen Indications: Type 2 diabetes mellitus with foot ulcer (CODE) ([facility]) INJECT 30 UNITS UNDER THE SKIN IN THE MORNING AND AT NOON AND IN THE EVENING. INJECT BEFORE MEALS. 100 mL 3 05/27/2024 ActiveStart: 05-16-2024 End: 17-34-5391esambeq aspart (NovoLOG FLEXPEN) 100 UNIT/ML pen Indications: Type 2 diabetes mellitus with foot ulcer (CODE) (CMS/HCC) Inject 30 Units under the skin in the morning and 30 Units at noon and 30 Unitsin the evening. Inject before meals. 10 mL 05/16/2024 ActiveStart: 56-55-1155Fsfdiyk Aspart (NovoLOG) 100 UNIT/ML solution Indications: Type 2 diabetes mellitus without complications (CMS/HCC) Inject 30 Units under the skin in the morning and 30 Units at noon and 30 Units in the evening. Inject before meals. 30 mL 3 01/20/2024 Active Start: 10-60-7476Binfrqj Aspart U-100 (Novolog U-100 Insulin Aspart) 100 unit/mL solution Active SUBCUT January 06, 2024 12:00amStart: 34-83-9748nklkcu 30 [IU] by subcutaneous injection before mealtimeNovoLOG 100 UNIT/ML solution Indications: Type 2 diabetes mellitus without complications (CMS/HCC) INJECT 30 UNITS UNDER THE SKIN BEFORE MEALS 30 mL 3 03/09/2023 Active3 ml insulin degludec 200 unt/ml pen injector (20 sources)Insulin AnalogStart: 11-49-6139naqatwq degludec (Tresiba FlexTouch) 200 UNIT/ML injection Indications: Type 2 diabetes mellitus without complication, with long-term current use of insulin ([facility]) INJECT 56 UNITS UNDER THE SKIN AT BEDTIME 9 mL 5 09/22/2024 ActiveStart: 37-77-0196Ebysauj Degludec (Tresiba Flextouch U-200) 200 unit/mL (3 mL) insulin pen Active UNIT SUBCUT January 06, 2024 12:00amStart: 16-22-5800xuvtwoj degludec (Tresiba FlexTouch) 200 UNIT/ML injection Indications: Type 2 diabetes mellitus without complication, with long-term current use of insulin (CMS/HCC) Inject 56 Units under the skin at bedtime 9 mL 5 01/30/2023 ActiveInsulin Degludec (Tresiba Flextouch U-200) 200 unit/mL (3 mL) insulin pen (1 source)Start: 41-91-2073Gqvnmif Degludec (Tresiba Flextouch U-200) 200 unit/mL (3 mL) insulin pen Active 46 UNIT SUBCUT Every evening January 06, 2024 12:00amlisinopril 40 mg oral tablet (20 sources)Angiotensin Converting Enzyme InhibitorStart: 84-88-8762ngws 1 tablet by mouth once dailyLisinopril 40 mg tablet Active 40 MG PO Daily January 07, 2024 12:00ammeclizine hydrochloride 25 mg oral tablet (20 sources)AntiemeticStart: 11-12-8611cavt 1 tablet by mouth every four to six hours as neededmeclizine (Antivert) 25 MG tablet Indications: Fluid level behind tympanic membrane of left ear 1 tablet as needed Orally every 4-6 hours as needed for 90 days 30 tablet 1 03/22/2024 ActiveStart: 69-86-2100iliq 1 tablet by mouth every four to six hours as neededmeclizine (Antivert) 25 MG tablet Indications: Fluid level behind tympanic membrane of left ear 1 tablet as needed Orally every 4-6 hours as needed for 90 days 30 tablet 1 03/30/2023 Active omeprazole 20 mg delayed release oral capsule (20 sources)Proton Pump InhibitorStart: 02-24-0313sykl 1 capsule by mouth once dailyomeprazole (PriLOSEC) [address] capsule Indications: Gastroesophageal reflux disease without esophagitis TAKE 1 CAPSULE BY MOUTH EVERY DAY AT THE SAME TIME EACH DAY 100 capsule 3 03/01/2024 ActiveStart: 53-72-4493gpoh 1 capsule by mouth once dailyomeprazole (PriLOSEC) [address] capsule Indications: Gastroesophageal reflux disease without esophagitis Take 1 capsule (20 mg) by mouth 1 (one) time each day at the same time 100 capsule 3 01/29/2023ctiveOmeprazole 20 mg capsule,delayed release(DR/EC) (1 source)Start: 90-35-7613Ikzrbqjewl 20 mg capsule,delayed release(DR/EC) Active 20 MG PO January 06, 2024 12:00ampredniSONE 10 mg oral tablet (2 sources)Start: 10-05-2024 End: 77-07-6035vvnq 4 tablets by mouth once daily, then take 3 tablets by mouth once daily, then take 2 tablets bymouth once daily, then take 1 tablet by mouth once dailypredniSONE (Deltasone) 10 MG tablet Indications: Intercostal pain Take 4 tablets (40 mg) by mouth Daily for 4 days, THEN 3 tablets (30 mg) Daily for 4 days, THEN 2 tablets (20 mg) Daily for 4 days, THEN 1 tablet (10 mg) Daily for 4 days. 40 tablet 10/05/2024 10/21/2024 Activerosuvastatin calcium 20 mg oral tablet (20 sources)HMG-CoA Reductase InhibitorStart: 19-03-8010mxkm 1 tablet by mouth once dailyRosuvastatin 20 mg tablet Active 20 MG PO Daily January 06, 2024 12:00amrosuvastatin (Crestor) 20 MG tablet Indications: Type 2 diabetes mellitus with diabetic autonomic neuropathy, with long-term current use of insulin (HCC) 1 (one) time each day at the same time. Activesacubitril 24 mg / valsartan 26 mg oral tablet (20 sources)Angiotensin 2 Receptor BlockerStart: 08-18-2023 End: 85-28-7480qxgw 1 tablet by mouth in the morningsacubitril-valsartan (Entresto) 24-26 MG tablet Take 1 tablet by mouth in the morning and 1 tablet in the evening. 08/18/2023 Activesulfamethoxazole 800 mg / trimethoprim 160 mg oral tablet (20 sources)Dihydrofolate Reductase Inhibitor Antibacterial, Sulfonamide AntimicrobialStart: 01-18-2024 End: 57-71-2864wnvu 1 tablet by mouth once in the morning, then take 1 tablet by mouth once at bedtime, then take 1 tablet by mouth twice dailysulfamethoxazole- trimethoprim (Bactrim DS) 800-160 MG per tablet Indications: Diabetic Foot Infection Take 1 tablet by mouth in the morning and 1 tablet before bedtime. Do all this for 10 days. TAKE 1 PILL P.O. B.I.D. FOR 10 DAYS. 20 tablet 01/18/2024 01/28/2024 ActiveStart: 01-04-2024 End: 23-63-2991fbyc 1 tablet by mouth once in the morning, then take 1 tablet by mouth once at bedtime, then take 1 tablet by mouth twice dailysulfamethoxazole- trimethoprim (Bactrim DS) 800-160 MG per tablet Indications: Diabetic Foot Infection Take 1 tablet by mouth in the morning and 1 tablet before bedtime. Do all this for 10 days. TAKE 1 PILL P.O. B.I.D. FOR 10 DAYS. 20 tablet 01/04/2024 01/14/2024 ExpiredStart: 12-16-2023 End: 35-21-9402hldt 1 tablet by mouth once in the morning, then take 1 tablet by mouth once at bedtime, then take 1 tablet by mouth twice dailysulfamethoxazole- trimethoprim (Bactrim DS) 800-160 MG per tablet Indications: Diabetic Foot Infection Take 1 tablet by mouth in the morning and 1 tablet before bedtime. Do all this for 10 days. TAKE 1 PILL P.O. B.I.D. FOR 10 DAYS. 20 tablet 12/23/2023 01/02/2024 ActivetiZANidine 4 mg oral tablet (7 sources)Central alpha-2 Adrenergic AgonistStart: 10-25-2024 End: 72-14-8048pkeh 1 tablet by mouth every six hours for muscle spasms tiZANidine (Zanaflex) 4 MG tablet Indications: Muscle spasm of back Take 1 tablet (4 mg) by mouth every 6 (six) hours if needed for muscle spasms for up to 10 days 30 tablet 10/25/2024 ActiveStart: 10-05-2024 End: 06-45-3508qqxj 1 tablet by mouth every six hours for muscle spasms tiZANidine (Zanaflex) 4 MG tablet Indications: Muscle spasm of back Take 1 tablet (4 mg) by mouth every 6 (six) hours if needed for muscle spasms for up to 10 days 30 tablet 10/05/2024 10/15/2024 ActivetraMADol hydrochloride 50 mg oral tablet (5 sources)Opioid AgonistStart: 12-23-2023 End: 45-31-2557nqqq 1 tablet by mouth every six hours for paintraMADol (Ultram) 50 MG tablet Indications: Pain Take 1 tablet (50 mg) by mouth every 6 (six) hoursif needed for severe pain or moderate pain for up to 5 days 20 tablet 12/23/2023 12/28/2023 ActiveTuberculin Syringe ([facility] Tuberculin Safety Syr) 25G X 5/8 1 ML misc (20 sources)Start: 09-24-2022 End: 42-43-9453Zmvqljnhzq Syringe (UltiCare Tuberculin Safety Syr) 25G X 5/8 1 ML misc Indications: Type 2 diabetes mellitus with diabetic autonomic neuropathy, with long-term current use of insulin (CMS/HCC) USE DIRECTED 100 each 4 09/24/2022 02/19/2024 DiscontinuedStart: 32-98-1972Jhkdgvelhb Syringe (UltiCare Tuberculin Safety Syr) 25G X 5/8 1 ML misc Indications: Type 2 diabetes mellitus with diabetic autonomic neuropathy, with long-term current use of insulin (CMS/HCC) USE DIRECTED 100 each 4 09/24/2022 Active Problems Active Problems Problem ClassificationProblemDateDocumented DateEpisodic/ChronicAcute bronchitis (2 sources)Acute bronchitis; Translations: [Acute bronchitis, unspecified] 49-17-7848EjbglvscFbpdnqs-related disorders (1 source)Alcohol abuse with intoxication, unspecified; Translations: [ALCOHOL ABUSE WITH INTOXICATION UNS]Onset: 97-36-3150BvdsjnhKswkobjq reactions (1 source)Allergic contact dermatitis due to plants, except food; Translations: [[facility] DERMATIT PLANTS NO FOOD]Onset: 68-42-7646ObrdwdnmKikhnwn dysrhythmias (20 sources)Ventricular tachycardia; Translations: [Ventricular tachycardia] Onset: 048647-21-8090MafftceVsfblcv ulcer of skin (14 sources)Non-pressure chronic ulcer of other part of left foot with necrosis of muscle; Translations: [Ulcerof other part of foot]66-82-9609Jatmrsa Coagulation and hemorrhagic disorders (20 sources)Thrombocytopenia, unspecified; Translations: [Thrombocytopenic disorder]Onset: 916182-63-8792WdwokosEdszxpvyvb associated with dizziness or vertigo (4 sources)Dizziness and giddiness; Translations: [DIZZINESS AND GIDDINESS] Onset: 97-99-6571HhswgvxlWxgyrtkhlq disorders (20 sources)Presence of cardiac pacemaker; Translations: [Cardiac pacemaker in situ]Onset: 731307-03-5109FxfmqhvUgxxqhdyag heart failure; nonhypertensive (20 sources)Congestive heart failure; Translations: [Heart failure, unspecified] Onset: 679230-78-6084JhtjotkVauympez atherosclerosis and other heart disease (20 sources)Atherosclerotic heart disease of [place] coronary artery without angina pectoris; Translations: [Coronary atherosclerosis]Onset: 10-21-2021 35-25-3327MvezengJrxjdpss mellitus with complications (20 sources)Neuropathy due to diabetes mellitus; Translations: [Type 2 diabetes mellitus with diabetic neuropathy, unspecified]Onset: ChronicDisorders of lipid metabolism (20 sources)Hyperlipidemia, unspecified; Translations: [Hypertriglyceridemia] Onset: 701491-24-9124GdlnfmwErkzkklmmlcwka and diverticulitis (20 sources)Diverticulitis of sigmoid colon; Translations: [Diverticulitis of large intestine without perforation or abscess without bleeding]Onset: 488573-91-5186PqmyppgT Codes: Fall (1 source)Unspecified fall, initial encounter; Translations: [UNSPECIFIED FALL INITIAL ENCOUNTER]Onset: 18-37-4625QhgdrsjgO Codes: Unspecified (1 source)Blood alcohol level of 200-239 mg/100 ml; Translations: [BLOOD ALCOHOL LVL 200-239 MG/100 ML]Onset: 37-73-9304PcncwbcfIqxsdfcxao disorders (20 sources)Gastroesophageal reflux disease; Translations: [Gastro-esophageal reflux disease without esophagitis]Onset: 707311-84-6440LadxmcyTpbuiievu hypertension (3 sources)Essential (primary) hypertension; Translations: [Hypertensive disorder]Onset: 536512-50-7195UinwbvfSgwhy and electrolyte disorders (1 source)Hypo-osmolality and hyponatremia; Translations: [HYPO-OSMOLALITY AND HYPONATREMIA]Onset: 93-21-9171HvuzbueiMljyhijf (1 source)Atherosclerosis of [place] arteries of extremities with gangrene, left leg; Translations: [Atherosclerosis of [place] arteries of extremities with gangrene, left leg]Onset: 94-85-6449DdsiggfGxccjdiy (20 sources)Gangrenous disorder; Translations: [Gangrene, not elsewhere classified]57-20-0282HfkkwvnpOmitt valve disorders (20 sources)Mitral valve disorder; Translations: [Rheumatic mitral valve disease, unspecified]Onset: 923057-01-5622VkitgeuRpefsppitawx with complications and secondary hypertension (20 sources)Hypertensive heart failure; Translations: [Hypertensive heart disease with heart failure]Onset: 921627-29-9965IbhskilXqniqhod disorders (2 sources)Secondary immune deficiency disorder; Translations: [Immunodeficiency due to conditions classified elsewhere ([facility])]44-67-5254PdgjmrsErvwuqzodyjih and screening for infectious disease (1 source)Encounter for immunization; Translations: [ENCOUNTER FOR IMMUNIZATION] Onset: 39-15-0757UlhbumlcXovjciptt arthritis and osteomyelitis (except that caused by tuberculosis or sexually transmitted disease) (8 sources)Acute osteomyelitis of ankle and/or foot; Translations: [Other acute osteomyelitis, left ankle and foot]01-43-6397NbaakbtOggbhwhbplriy mental health disorders (1 source)Primary insomnia; Translations: [Primary insomnia]98-61-7033Ywyqled Nausea and vomiting (1 source)Vomiting, unspecified; Translations: [VOMITING UNSPECIFIED]Onset: 22-26-8997DvmhhshrMgxepsddnmj chest pain (2 sources)Pain of intercostal space; Translations: [Intercostal pain]10-05-2024 EpisodicOpen wounds of extremities (4 sources)Amputated big toe; Translations: [Complete traumatic amputation of left great toe, initial encounter]57-78-5575HhiubmrQezeq acquired deformities (2 sources)Contracture of joint of left ankle; Translations: [Contracture, left ankle]38-96-4642HdrlayzCvftv aftercare (1 source)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 technician (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; Translations: [USP CURRENT USE OF ASPIRIN]Onset: 82-28-2287PojvdkytIffpl aftercare (1 source)jail (current) use of insulin; Translations: [CRYPTOLOGIC TECHNICIAN OPERATOR/ANALYST CURRENT USE OF INSULIN]Onset: 29-56-6369CktqiaiiIqsqq aftercare (1 source)Other group home (current) drug therapy; Translations: [OTH USP CURRENT DRUG THERAPY]Onset: 97-68-2923LdlbiwniBniak connective tissue disease (4 sources)Deformity of lower limb; Translations: [Contracture of muscle, left lower leg]80-77-7509OwrrjlztSzfjf lower respiratory disease (2 sources)Cough; Translations: [Acute cough]33-56-7671RafkgrjzPujnk male genital disorders (20 sources)Secondary erectile dysfunction; Translations: [Male erectile dysfunction, unspecified]Onset: 613161-89-0282QtxbxybEaste nutritional; endocrine; and metabolic disorders (1 source)Obesity, unspecified; Translations: [OBESITY UNSPECIFIED]Onset: 85-01-8612VclkabrXuvsm nutritional; endocrine; and metabolic disorders (1 source)Body mass index (BMI) 30.0-30.9, adult; Translations: [BODY MASS INDEX BMI 30.0-30.9 ADULT]Onset: 46-90-2446YsokbvvAuxgw nutritional; endocrine; and metabolic disorders (20 sources)Lipoprotein deficiency disorder; Translations: [Lipoprotein deficiency]Onset: 314819-42-7299IorzrnhXyjju screening for suspected conditions (not mental disorders or infectious disease) (1 source)Culture positive for methicillin resistant Staphylococcus aureusOnset: 993481-05-5209WbwtapthPehnide on above:MRSA+ Left Great toe woundOther skin disorders (4 sources)Callosity; Translations: [Corns and callosities]36-43-5153Cvqdgria Other upper respiratory disease (20 sources)Seasonal allergic rhinitis; Translations: [Other seasonal allergic rhinitis]Onset: 483303-47-3014NrdscjvJhioz upper respiratory disease (20 sources)Seasonal allergy; Translations: [Other seasonal allergic rhinitis] Onset: 638353-95-9921RcdbtuqCwexvvkvvn and visceral atherosclerosis (20 sources)Intermittent claudication; Translations: [Peripheral vascular disease, unspecified]Onset: 098694-40-6611OvnjplpXujf and subcutaneous tissue infections (8 sources)Infection of toe ; Translations: [Local infection of the skin and subcutaneous tissue, unspecified]60-05-9197AhbtwhncPbizjwhpqpb; intervertebral disc disorders; other back problems (14 sources)Spasm of back muscles; Translations: [Muscle spasm of back] 46-08-0224MbaafnmuSxqyxylxb-related disorders (20 sources)Nicotine dependence, chewing tobacco, uncomplicated; Translations: [Tobacco dependence caused by chewing tobacco]Onset: hronic Superficial injury; contusion (2 sources)Abrasion of left elbow, initial encounter; Translations: [Contusion of left elbow, initial encounter]Onset: 94-22-0741UeplhoyrInuldxcnzmcb (1 source)Pain, unspecified; Translations: [Pain, unspecified]Onset: 03-25-2017 Unclassified (1 source)Unspecified intestinal obstruction, unspecified as to partial versus complete obstruction; Translations: [Unspecified intestinal obstruction, unspecified as to partial versus complete obstruction]Onset: 03-30-2017 Unclassified (1 source)CONTACT W/AND (SUSP) EXPOS COVID-19; Translations: [CONTACT W/AND (SUSP) EXPOS COVID-19]Onset: 43-18-9985Volliruybwkh (2 sources)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, left (CMS/HCC)01-12-2024 Past or Other Problems Problem ClassificationProblemDateDocumented DateEpisodic/ChronicAbdominal pain (20 sources)Abdominal pain; Translations: [Unspecified abdominal pain]Onset: 019917-17-5974MxobfepxBlvgcbj tract disease (20 sources)Calculus of gallbladder with cholecystitis; Translations: [Calculus of gallbladder with chronic cholecystitis without obstruction]Onset: 12-31-2011 83-15-4271LevbqjgrBqyzqpag mellitus without complication (20 sources)Type 1 diabetes mellitus without complications; Translations: [Type 2 diabetes mellitus without complication]Onset: 10-21-2021 Resolved: 982785-11-2778JpnikpgXwgozrqylihdr symptoms and ill-defined conditions (20 sources)Microalbuminuria; Translations: [Proteinuria, unspecified]Onset: 735127-83-5006WsdxeoolDrbnn gastrointestinal disorders (20 sources)Constipation; Translations: [Constipation, unspecified]Onset: 975218-44-1597CnnwvyaoBrzgz upper respiratory disease (20 sources)Deviated nasal septum; Translations: [Deviated nasal septum]Onset: 871733-98-8495ZorgeaabVgpxsb media and related conditions (20 sources)Finding of fluid behind tympanic membrane; Translations: [Unspecified nonsuppurative otitis media, left ear]Onset: EpisodicPeritonitis and intestinal abscess (20 sources)Abscess of peritoneum; Translations: [Peritoneal abscess]Onset: 241514-57-0070ZgbrjcuiXvxqdigw codes; unclassified (20 sources)Insomnia; Translations: [Insomnia, unspecified]Onset: 09-15-2022 64-91-9771BsujlyglTkgulsls codes; unclassified (20 sources)History of repair of mitral valve; Translations: [Other specified postprocedural states]Onset: 782530-11-7778KtafqjvaDydlgjrxiwuo (4 sources)PAD (peripheral artery disease) ([facility])12-28-2023 Results Test NameValueInterpretationReference RangeFacilityOrders Onlyon 11-03-2024 Orders [id number] Leida Hou 1965 M Date Provider Department Center 11/03/2024 TAMIKO [facility] [place] HeartVAS Family History Family history unknown: YesNormalUniversity of Knapp Medical CenterCT CHEST WO CONon 63-[place] [id number] [place] Scan Report Signed Patient: LEIDA HOU MR#: [id number] : 1965 Acct:[id number] Age/Sex: 59 / M ADM Date: 10/31/24 Loc: CT Attending Dr: NOHEMI PHOENIX Ordering Physician: NOHEMI PHOENIX Date of Service: 10/31/24 Procedure(s): CT chest wo con Accession Number(s): [id number] cc: NOHEMI PHOENIX [address] [address] Patient Name: LEIDA HOU MRN: [id number] date: 1965 Sex: M Assigned Patient Location: CT Current Patient Location: CT Accession/Order Number: [id number] Exam Date: 10/31/2024 12:05 Report Date: 10/31/2024 [...] Kraft M.D. 10/31/2024 1:16 PM Dictation Location: [place] [address] Electronically authenticated by: [id number] Y Date: 10/31/2024 13:16 Dictated By: Yanci Kraft M.D. Signed By: 10/31/24 1318 DD/ 1316 TD/TT: Bleaching Supervisor:TBHRadiology, Radiologist, - 10/31/2024 [place] [address] CT Scan Report Signed Patient: LEIDA HOU MR#: [id number] : 1965 Acct:[id number] Age/Sex: 59 / M ADM Date: 10/31/24 Loc: CT Attending Dr: NOHEMI PHOENIX Ordering Physician: NOHEMI PHOENIX Date of Service: 10/31/24 Procedure(s): CT chest wo con Accession Number(s): [id number] cc: NOHEMI PHOENIX [place] [id number] Patient Name: LEIDA HOU MRN: [id number] date: 1965 Sex: M Assigned Patient Location: CT Current Patient Location: CT Accession/Order Number: [id number] Exam Date: 10/31/2024 12:05 Report Date: 10/31/2024 [...] Kraft M.D. 10/31/2024 1:16 PM Dictation Location: [place] [address] Electronically authenticated by: [id number] Y Date: 10/31/2024 13:16 Dictated By: Yanci Kraft M.D. Signed By: 10/31/24 1318 DD/ 1316 TD/TT: Bleaching Supervisor: [facility] CenterRadiology Study observation (narrative)[facility] CHEST WO CONOrdered By: Radiologist Radiology on 76-53-5694HSLTMissouri Delta Medical Center Work Phone: [phone] 83-12-195231Suzuqr patient to reschedule him for a no show appointment from July. Unable to make contact with patient, no answer, voice mailbox not set upNormalUniversity of Knapp Medical CenterOrders Onlyon 00-64-4332Rlzgki [id number] Leida Hou 1965 M Date Provider Department Center 07/02/2024 325-JANICELISBETH [facility] C[facility] [place] HeartVAS Family History Family history unknown: YesNormalUniversity of Knapp Medical CenterHbA1c (Bld) [Mass fraction]on 57-22-2053Immbdbtteieauz and review of laboratory results AbnormalSwain Community HospitalPOMN glycosylated hemoglobin (Hb A1C) docked deviceon 56-88-5852TaV0k (Bld) [Mass fraction]8.9 %[facility] Surgical Pathology Reporton 34-31-1325Twxwqwtp Pathology ReportUc Medical Center [address] [place] [address]- Surgical Pathology Report Collected Date/Time: 01/18/2024 12:35 EST Pathologist: Chino Balderas MD Date/Time: 01/18/2024 18:00 EST Pavithra MEZA, Yonatan [...] has a benitez/pink/light green/light yellow necrotic appearance. Designer Architect portion is submitted in a total of four cassettes: 1-2 - Skin and soft tissue 3-4 - Bone after decalcification (DC) DC:[facility] Microscopic Description Microscopic examination performed unless gross only specified.[facility] Willard HospitalComment on above:Performed By: #### [id number] #### [facility] [address], [place] [address]LE UNI ankle/arm indiceson 98-83-0969ID UNI ankle/arm indices [facility] [place] [address] Ultrasound Report Signed Patient: Leida Hou MR#: [id number] : 1965 Acct:[id number] Age/Sex: 58 / M ADM Date: 01/19/24 Loc: Room: Type: [facility] Attending Dr: Esthela Fields MD Ordering Provider: [...] Esthela Fields MD01/19/2024 2:21 PM Dictation Location: [place] [address] Tech: Princess Hampton Transcribed By: RODOLFO 01/19/24 1421 Dictated By: Esthela Fields MD 01/19/24 1419 Signed By: 01/19/24 1421[facility] Physician [facility] CenterBlood Urea Nitrogenon 01-07-2024 Urea nitrogen [Mass/Vol]33 mg/dLHigh7-25[facility] Physician [facility] Medical CenterComment on above:Performed By: #### BUN, CREAT #### [facility] [address] [place] [address] USACreatinineon 91-11-3228Oakuioewge [Mass/Vol]1.59 mg/dLHigh 0.70-1.30[facility] Physician [facility] Medical CenterComment on above:Performed By: #### BUN, CREAT #### [facility] [address] [place] [address] USACreatinine Clr Calc Sevkyanx35.23NoUNC Health Lenoir Physician [facility] Medical CenterComment on above:Result Comment: PERFORMED BY: [place] [address] PATHOLOGIST DEPUTY BAILIFF RUTH HOGUE M.D.Performed By: #### BUN, CREAT #### [place] [address] USAEstimated GFR49.390 mL/MinNoAvita Health System Galion HospitalComment on above:Performed By: #### BUN, CREAT #### [place] [address] USACreatinine (Bld) [Mass/Vol]Ordered By: Esthela Fields on 38-45-3438Gdmjfivsvx [Mass/Vol]Whole blood creatinine measurementHigh0.6-1.3 [facility] HospitalComment on above:ER/ESD physician is notified/shown all ISTAT results.Critical values may be confirmed by laboratory testing ifdeemed necessary by ER attending doctor.Creatinine [Mass/volume] in Serum or PlasmaOrdered By: Esthela Fields on 16-06-6445Vrxndouvra [Mass/Vol] Creatinine [Mass/volume] in Serum or PlasmaHigh0.70-1.30[facility] HospitalGlucose Glucometer (BldC) [Mass/Vol]Ordered By: Esthela Fields on 99-02-8986Ipkbxfl [Mass/Vol]Capillary blood glucose measurement by glucometer (mass/volume)[facility] HospitalComment on above:Random Glucose Reference Range is dependent on time and content of last meal. Glucose of more than 200 mg/dL in a nonstressed, ambulatory subject supports the diagnosis of Diabetes Mellitus.Glucose Poct Glucometerson 61-87-3099Dzglvpy [Mass/Vol]172 mg/dLNoUNC Health Lenoir Physician GroupComment on above:Result Comment: Random Glucose Reference Range is dependent on time and content of last meal. Glucose of more than 200 mg/dL in a nonstressed, ambulatory subject supports the diagnosis of Diabetes Mellitus. PERFORMED BY: [place] [address] PATHOLOGIST DEPUTY BAILIFF RUTH HOGUE M.D.Performed By: #### GLULS #### Point of Care testing ,ISTAT XRay CREon 50-18-3778Bxxgthsbwr [Mass/Vol]1.7 mg/dLHigh0.6-1.3[facility] Physician GroupComment on above:Result Comment: ER/ESD physician is notified/shown all ISTAT results. Critical values may be confirmed by laboratory testing if deemed necessary by ER attending doctor.Performed By: #### ISCRE #### [facility] [address] [place] [address] USAISTAT GFR45.581NoUNC Health Lenoir Physician GroupComment on above:Result Comment: PERFORMED BY: [address] [address] PATHOLOGIST DEPUTY BAILIFF RUTH HOGUE M.D.Performed By: #### ISCRE #### [facility] [address] [place] [address] USANo Panel InformationOrdered By: Esthela Fields on 60-40-0875Dofcumt Estimated GFR (eGFR)45.581[facility] Estimated GFR (CKD-EPI)49.390 mL/MinCleveland Clinic Mercy HospitalPharmacy Creatinine Clearance (Chem54.23[facility] HospitalUrea nitrogen [Mass/volume] in Serum or PlasmaOrdered By: Esthela Fields on 61-83-7211Iddl nitrogen [Mass/Vol]Urea nitrogen [Mass/volume] in Serum or PlasmaHigh7-25 [facility] HospitalCT FOOT LT WO CONon 46-61-5870[place] [address] CT Scan Report Signed Patient: LEIDA HOU MR#: [id number] : 1965 Acct:[id number] Age/Sex: 58 / M ADM Date: 12/30/23 Loc: [facility] Attending Dr: YONATAN ROSADO M.D. Ordering Physician: YONATAN ROSADO M.D. Date of Service: 12/30/23 Procedure(s): CT foot LT wo con Accession Number(s): [id number] cc: NOHEMI PHOENIX [place] [id number] Patient Name: LEIDA HOU MRN: [id number] date: 1965 Sex: M Assigned Patient Location: [facility] Current Patient Location: [facility] Accession/Order Number: [id number] Exam Date: 12/30/2023 14:19 Report Date: 01/02/2024 08:47 At the request of: YONATAN ROSADO Procedure: CT foot LT wo con [...] authenticated by: DONTA BALLARD Date: 01/02/2024 08:47 Dictated By: Donta Ballard M.D. Signed By: 01/02/2449 DD/ TD/TT: Bleaching Supervisor:ESVINHRadiology, Radiologist, - 01/02/2024 [place] [address] CT Scan Report Signed Patient: LEIDA HOU MR#: [id number] : 1965 Acct:[id number] Age/Sex: 58 / M ADM Date: 12/30/23 Loc: RAD Attending Dr: YONATAN ROSADO M.D. Ordering Physician: YONATAN ROSADO M.D. Date of Service: 12/30/23 Procedure(s): CT foot LT wo con Accession Number(s): [id number] cc: NOHEMI PHOENIX [place] [address] Patient Name: LEIDA HOU MRN: [id number] date: 1965 Sex: M Assigned Patient Location: RAD Current Patient Location: RAD Accession/Order Number: [id number] Exam Date: 12/30/2023 14:19 Report Date: 01/02/2024 08:47 At the request of: YONATAN ROSADO Procedure: CT foot LT wo con [...] authenticated by: DONTA BALLARD Date: 01/02/2024 08:47 Dictated By: Donta Ballard M.D. Signed By: 01/02/2449 DD/ TD/TT: Bleaching Supervisor: TIAGO HealthcareRadiology Study observation (narrative)NOMS HealthcareCT FOOT LT WO CONOrdered By: Radiologist Radiology on 49-16-6257BTJO [employer] Work Phone: SEGMENTAL BLOOD PRESSUREon 67-91-7972X[address] [address] Vein Report Signed Patient: LEIDA HOU MR#: [id number] : 1965 Acct:[id number] Age/Sex: 58 / M ADM Date: 12/30/23 Loc: VC Attending Dr: YONATAN ROSADO M.D. Ordering Physician: YONATAN ROSADO M.D. Date of Service: 12/30/23 Procedure(s): VC SEGMENTAL PRESSURES Accession Number(s): [id number] cc: NOHEMI PHOENIX ; YONATAN ROSADO M.D. [address] [address] Patient Name: LEIDA HOU MRN: [id number] date: 1965 Sex: M Assigned Patient Location: Current Patient Location: Accession/Order Number: [id number] Exam Date: 12/30/2023 13:05 Report Date: 12/31/2023 [...] M.D. Signed By: 12/31/23703 DD/ 1 TD/TT: Bleaching Supervisor:TBHRadiology, Radiologist, - 12/31/2023 [place] [address] Vein Report Signed Patient: LEIDA HOU MR#: [id number] : 1965 Acct:[id number] Age/Sex: 58 / M ADM Date: 12/30/23 Loc: VC Attending Dr: YONATAN ROSADO M.D. Ordering Physician: YONATAN ROSADO M.D. Date of Service: 12/30/23 Procedure(s): VC SEGMENTAL PRESSURES Accession Number(s): [id number] cc: NOHEMI PHOENIX ; YONATAN ROSADO M.D. [place] [id number] Patient Name: LEIDA HOU MRN: [id number] date: 1965 Sex: M Assigned Patient Location: Current Patient Location: Accession/Order Number: [id number] Exam Date: 12/30/2023 13:05 Report Date: 12/31/2023 [...] M.D. Signed By: 12/31/23703 DD/ 1 TD/TT: Bleaching Supervisor: TI[facility] HealthcareRadiology Study observation (narrative)NOMS HealthcareSEGMENTAL BLOOD PRESSUREOrdered By: Radiologist Radiology on 71-66-7156[facility] Work Phone: [facility] C WOUNDon [phone] WOUND CULTURE Microbiology PROCEDURE: Wound Culture [R1] SOURCE: Wound BODY SITE: Toe COLLECTED DATE/TIME: 12/21/2023 10:20 EDT RECEIVED DATE/TIME: 12/21/2023 12:23 EDT START DATE/TIME: 12/21/2023 12:23 EDT FREE TEXT SOURCE: Left great toe Dolce DPM, Yonatan D Dolce DPM, Yonatan D FINAL REPORTS Final Report [] Verified Date/Time: [...] Locations R1: This test was performed at: [facility], [address] [place] [address], [address] , , GEYY HealthcareOriginal Ordering Provider: SUSANA Sanchez [facility] HealthcareXR Foot - left 3 Viewson 29-97-1211Kiuntcl Result: XRAY: Three views were taken today AP/MO/LAT foot: No fractures or dislocations seen No overt signs of osteomyelitis noted of the left great toe joint or proximal phalanx no gas noted in the soft tissueSwain Community HospitalRadiology Study observation (narrative)[facility] CenterLaboratory - Hematology and Cell countson 81-09-8138EzF2h (Bld) [Mass fraction]10 %[facility] CenterNo Panel Informationon 40-65-8815Rnzstapoqklpmd and review of laboratory resultsAbnormalSwain Community HospitalALL BASIC METABOLIC PANELon 44-70-1702Zrraw gap [Moles/Vol]12.3 mmol/LNOMS HealthcareCalcium [Mass/Vol]9.5 mg/dL8.5 - 10.1 mg/dLNOIL HealthcareChloride [Moles/Vol]102 mmol/L 98 - 107 mmol/LNOMS HealthcareCO2 [Moles/Vol]26.2 mmol/L21.0 - 32.0 mmol/LNOMS HealthcareCreatinine [Mass/Vol]1.34 mg/dLHigh0.70 - 1.30 mg/dLNOIL Healthcare GFR/1.73 sq M.predicted CKD-EPI (S/P/Bld) [Vol rate/Area]>60>=60 mL/min/1.73m 2 NOMS HealthcareGlucose [Mass/Vol]380 mg/xRAkdx11 - 106 mg/dLNOSt. Louis [facility] Medical Center Potassium [Moles/Vol]4.5 mmol/L3.5 - 5.1 mmol/LNOMS HealthcareSodium [Moles/Vol] 136 mmol/L136 - 145 mmol/LNOMS HealthcareTBH EGFR-NON AF LFBKYEGR23Znl>=60 mL/min/1.73m 2NOMS HealthcareUrea nitrogen [Mass/Vol]23.0 mg/dLHigh7.0 - 18.0 mg/dLNOIL HealthcareUrea nitrogen/Creatinine [Mass ratio]17.2 mg/mgNOSt. Louis VA Medical CenterALL LIPID PROFILE (FASTING)on 56-46-4347EUXZ HDL RATIO5.3NOIL HealthcareComment on above:3.3 - 4.4 LOW RISK 4.4 - 7.1 AVERAGE RISK 7.1 - 11.0 MODERATE RISK >11.0 HIGH RISK Cholesterol [Mass/Vol]181 mg/dLNINF - 200 mg/dLMissouri Delta Medical CenterCholesterol in HDL [Mass/Vol]34 mg/dLLow40 - 60 mg/dLNOIL HealthcareComment on above:> or =60 mg/dl - LOW CARDIOVASCULAR RISK <40 mg/dl - HIGH CARDIOVASCULAR RISK Magnesium [Mass/Vol]88.0 mg/dLBEAVER VALLEY HOSPITAL HealthcareComment on above:<100 mg/dl OPTIMAL 100-129 mg/dl NEAR OR ABOVE OPTIMAL 130-159 mg/dl BORDERLINE HIGH 160-189 mg/dl HIGH >190 mg/dl VERY HIGH Magnesium [Mass/Vol]59.8 mg/dLMissouri Delta Medical CenterTriglyceride [Mass/Vol]299 mg/dL HighNINF - 150 mg/dLMissouri Delta Medical CenterNo Panel Informationon 11-25-2023 Interpretation and review of laboratory resultsAbnormalMissouri Delta Medical CenterCLINISYNC NOMS HealthcareACETAMINOPHENon 10-07-2417Lquvwzgcfgmla [Mass/Vol]ug/mLNormal 10.0-30.0The Cleveland Clinicment on above:Performed By: #### CBC #### [facility] [address] [place] [address] Dr. Prince SosaJANE [facility] AUTO DIFFon 45-29-8793MOEP #0.0 103/ulNormal0.0-0.1The Cleveland Clinicment on above:Performed By: #### CBC #### [facility] [address] [place] [address] Dr. Prince SosaBasophils/100 WBC (Bld)0.1 %Critically low0.2-2.0The Pomerene HospitalComment on above:Performed By: #### CBC #### [facility] [address] [place] [address] Dr. Prince Mares #0.2 103/ulNormal0.0-0.7The [facility]omerene HospitalComment on above: Performed By: #### CBC #### [facility] [address] [place] [address] Dr. Prince Allenosinophils/100 WBC (Bld)2.1 %Normal0.9-7.0[facility] on above:Performed By: #### CBC #### [facility] [address] [place] [address] Dr. Prince Allenrythrocyte distribution width (RBC) [Ratio]13.3 %Pxurpw80.0-15.0 [facility] [facility] HospitalComcorewell health pennock hospital on above:Performed By: #### CBC #### [facility] [address] [place] [address] Dr. Prince SosaHematocrit (Bld) [Volume fraction]37.5 %Critically low42.0-54.0 [facility] on above:Performed By: #### CBC #### [facility] [address] [place] [address] Dr. Prince SosaHemoglobin (Bld) [Mass/Vol]12.9 g/dLCritically low14.0-18.0The Cleveland Clinicment on above:Performed By: #### CBC #### [facility] [address] [place] [address] Dr. Prince De La Rosa #0.03 10e3/ulNormal0.00-0.03The [facility]omerene HospitalComment on above:Performed By: #### CBC #### [facility] [address] [place] [address] Dr. Prince De La Rosa %0.4 %Normal0.0-0.5The [facility]rene HospitalComment on above: Performed By: #### CBC #### [facility] [address] [place] [address] Dr. Prince Crooks #2.3 103/ulNormal1.2-3.8The [facility]rene HospitalComment on above:Performed By: #### CBC #### [facility] [address] [place] [address] Dr. Prince Bhandarihocytes/100 WBC (Bld)33.3 %Hlaguf00.5-60.0The [facility]omerene HospitalComment on above:Performed By: #### CBC #### [facility] [address] [place] [address] Dr. Prince Cruz DIFF REQNONormalThe [facility]omerene HospitalComment on above: Performed By: #### CBC #### [facility] [address] [place] [address] Dr. Prince Linder (RBC) [Entitic mass]29.4 ysFrbvzr51.9-34.0The [facility]rene HospitalComment on above:Performed By: #### CBC #### [facility] [address] [place] [address] Dr. Prince Anderson (RBC) [Mass/Vol]34.4 g/rEUrkjzi73.9-35.2The [facility]rene HospitalComment on above:Performed By: #### CBC #### [facility] [address] [place] [address] Dr. Prince Beckham (RBC) [Entitic vol]85.4 iONapfog28.0-94.0The [facility]rene HospitalComment on above:Performed By: #### CBC #### [facility] [address] [place] [address] Dr. Prince Willoughby #0.6 103/ulNormal0.3-0.8The [facility]rene HospitalComment on above:Performed By: #### CBC #### [facility] [address] [place] [address] Dr. Prince Jaimesocytes/100 WBC (Bld)8.1 %Normal1.7-12.0The [facility] Comment on above:Performed By: #### CBC #### [facility] [address] [place] [address] Dr. Prince HopperUT #3.9 103/ulNormal1.4-6.5The [facility]rene HospitalComment on above:Performed By: #### CBC #### [facility] [address] [place] [address] Dr. Prince Hopperutrophils/100 WBC (Bld)56.0 %Bkrlti34.0-75.0The [facility]rene HospitalComment on above:Performed By: #### CBC #### [facility] [address] [place] [address] Dr. Prince SosaPlatelet mean volume (Bld) [Entitic vol]10.5 fLNormal9.5-13.5The [facility]rene HospitalComment on above:Performed By: #### CBC #### [facility] [address] [place] [address] Dr. Prince SosaPLT107 103/ulCritically hqm042-902Cjv [facility] HospitalComment on above:Performed By: #### CBC #### [facility] [address] [place] [address] Dr. Prince SosaRBC4.39 106/ulCritically low4.70-6.10The [facility]rene HospitalComment on above:Performed By: #### CBC #### [facility] [address] [place] [address] Dr. Prince SosaWBC7.0 103/ulNormal4.0-11.0The [facility] HospitalComment on above: Performed By: #### CBC #### [facility] [address] [place] [address] Dr. Prince SosaCT CSPINE WO CONon 49-81-4479BO CSPINE WO CONEXAMINATION: CT CSPINE WO CON HISTORY: The patient is a [...] Electronically authenticated by: LIZETH MOORE Date: 2021-10-17 00:[address] [place] [address] HEAD WO CONon 82-71-9307KO HEAD WO CONNONCONTRAST CT SCAN OF THE HEAD CT HEAD [...] Electronically authenticated by: ALYSSA YANEZ Date: 2021-10-17 00:45NoSuburban Community Hospital & Brentwood HospitalCovid-19 PCR (CVDTBH)on 93-76-2805DCFL-CoV-2 (COVID-19) RNA CARMEN+probe Ql (Unsp spec)Not detectedNormalNOT DETECTEDThe [facility] Comment on above:Result Comment: When diagnostic testing is negative, the [...] for this test is supported by the Box Hinge And Lock Attacher of Health and Human Service's declaration that circumstances exist to justify the emergency use of in vitro diagnostics for the detection and/or diagnosis of the virus that causes COVID-19. This EUA will remain in effect for the duration of the COVID-19 declaration justifying emergency of IVDs, unless it is terminated or revoked by the FDA (after which the test may no longer be used).Performed By: #### CBC #### [facility] [address] [place] [address] Dr. Prince Chandler (BLD ALC)on 49-26-7850JZV NOTENOTE: 80 mg/dl is the legal limit for a blood alcohol levelNoSuburban Community Hospital & Brentwood HospitalComment on above: Performed By: #### ETH #### [facility] [address] [place] [address] Dr. Prince Stackanol [Mass/Vol]170 mg/dLCleveland Clinic FoundationComment on above:Performed By: #### ETH #### [facility] [address] [place] [address] Dr. Morrison ChangALC NOTENOTE: 80 mg/dl is the legal limit for a blood alcohol levelNoSuburban Community Hospital & Brentwood HospitalComment on above:Performed By: #### CBC #### [facility] [address] [address] [address] Prince Allenthanol [Mass/Vol]201 mg/dLNormalThe [facility] HospitalComment on above:Performed By: #### CBC #### [facility] [address] [place] [address] Dr. Prince SosaPOINT OF CARE GLUCOSEon 35-89-0368Uahqshd [Mass/Vol]186 mg/dL Critically hjjq26-735Lbw [facility] HospitalComcorewell health [facility] on above:Performed By: #### POCGLUC #### [facility] [address] [address] [address] Prince SosaGlucose [Mass/Vol]220 mg/dLCritically ktig21-696Mjr [facility] HospitalComcorewell health penn[facility] hospital on above:Performed By: #### CBC #### [facility] [address] [place] [address] Dr. Prince GallagherF 14(COMP METB)on 91-45-3652Kdolizq [Mass/Vol]3.5 g/dLNormal 3.4-5.0The [facility] on above:Performed By: #### SALYC, HSTROPN, ETH, ACET, CMP #### [facility] [address] [place] [address] Dr. Prince SosaAlbumin/Globulin [Mass ratio]1.1 {ratio}NormalThe [facility] HospitalComcorewell health pennock hospital on above:Performed By: #### SALYC, HSTROPN, ETH, ACET, CMP #### [facility] [address] [place] [address] Dr. Prince LauraP [Catalytic activity/Vol]61 U/YGzgghf04-994Iva [facility] on above:Performed By: #### SALYC, HSTROPN, ETH, ACET, CMP #### [facility] [address] [place] [address] Dr. Prince Pacheco [Catalytic activity/Vol]33 U/TXbkxzz05-84Axm Cleveland Clinicment on above:Performed By: #### SALYC, HSTROPN, ETH, ACET, CMP #### [facility] [address] [place] [address] Dr. Prince Walter gap [Moles/Vol]14.7 mmol/LNormalThe [facility] Comment on above:Performed By: #### SALYC, HSTROPN, ETH, ACET, CMP #### [facility] [address] [place] [address] Dr. Prince SosaAST [Catalytic activity/Vol]23 U/HKlobhl67-84Rlk [facility] HospitalComment on above:Performed By: #### SALYC, HSTROPN, ETH, ACET, CMP #### [facility] [address] [place] [address] Dr. Prince SosaBilirubin [Mass/Vol]0.4 mg/dLNormal0.2-1.0[facility] Comment on above:Performed By: #### SALYC, HSTROPN, ETH, ACET, CMP #### [facility] [address] [place] [address] Dr. Prince SosaCalcium [Mass/Vol]8.8 mg/dLNormal8.5-10.1[facility] Comment on above:Performed By: #### SALYC, HSTROPN, ETH, ACET, CMP #### [facility] [address] [place] [address] Dr. Prince SosaChloride [Moles/Vol]96 mmol/LCritically qpa95-628Ccq [facility] HospitalComment on above:Performed By: #### SALYC, HSTROPN, ETH, ACET, CMP #### [facility] [address] [place] [address] Dr. Prince SosaCO2 [Moles/Vol]21.0 mmol/WXmuqbs96.0-32.0[facility] Comment on above:Performed By: #### SALYC, HSTROPN, ETH, ACET, CMP #### [facility] [address] [place] [address] Dr. Prince SosaCreatinine [Mass/Vol]1.12 mg/dLNormal0.70-1.30The [facility] HospitalComment on above:Performed By: #### SALYC, HSTROPN, ETH, ACET, CMP #### [facility] [address] [address] [address] Prince AllenGFR-AF CITIZEN OF THE [place]>60Normal>=60The [facility] HospitalComment on above:Performed By: #### SALYC, HSTROPN, ETH, ACET, CMP #### [facility] [address] [address] [address] Prince AllenGFR-NON AF CITIZEN OF THE [place]>60Normal>=60The [facility] HospitalComment on above:Performed By: #### SALYC, HSTROPN, ETH, ACET, CMP #### [facility] [address] [address] [address] Prince SosaGlobulin (S) [Mass/Vol]3.3 g/dLNormalThe [facility] HospitalComment on above:Performed By: #### SALYC, HSTROPN, ETH, ACET, CMP #### [facility] [address] [address] [address] Prince SosaGlucose [Mass/Vol]222 mg/dLCritically gbzv07-273Oye [facility] HospitalComment on above:Performed By: #### SALYC, HSTROPN, ETH, ACET, CMP #### [facility] [address] [place] [address] Dr. Prince SosaPotassium [Moles/Vol]3.7 mmol/LNormal3.5-5.1[facility] Comment on above:Performed By: #### SALYC, HSTROPN, ETH, ACET, CMP #### [facility] [address] [place] [address] Dr. Prince SosaProtein [Mass/Vol]6.8 g/dLNormal6.4-8.2The [facility] Comment on above:Performed By: #### SALYC, HSTROPN, ETH, ACET, CMP #### [facility] [address] [place] [address] Dr. Prince SosaSodium [Moles/Vol]128 mmol/LCritically ill173-401Psc [facility] HospitalComment on above:Performed By: #### SALYC, HSTROPN, ETH, ACET, CMP #### [facility] [address] [address] [address] Prince Hale nitrogen [Mass/Vol]17.0 mg/dLNormal7.0-18.0[facility] Westment on above:Performed By: #### SALYC, HSTROPN, ETH, ACET, CMP #### [facility] [address] [place] [address] Dr. Prince Hale nitrogen/Creatinine [Mass ratio]15.2 mg/mgNoSuburban Community Hospital & Brentwood HospitalComment on above:Performed By: #### SALYC, HSTROPN, ETH, ACET, CMP #### [facility] [address] [place] [address] Dr. Prince MorganIMEissa 53-54-8427JQB Coag (PPP) [Relative time]1.07 {INR} NormalThe [facility] on above:Performed By: #### CBC #### [facility] [address] [place] [address] Dr. Prince Dockery GUIDELINESSEE BELOWCleveland Clinic FoundationComment on above:Result Comment: DESIRED INR: 2.0 - 3.0 CONDITIONS NOT LISTED BELOW 2.5 - 3.5 FOR PROSTHETIC HEART VALVE REPLACEMENT 2.5 - 3.5 RECURRENT THROMBOSIS Performed By: #### CBC #### [facility] [address] [place] [address] Dr. Prince Laguerre Coag (PPP) [Time]11.5 sNormal9.0-11.6The [facility] Comment on above:Performed By: #### CBC #### [facility] [address] [place] [address] Dr. Prince Oneill 72-31-7114mAMY Coag (Bld) [Time]25.5 uRczcgm13.3-36.2[facility] on above:Performed By: #### CBC #### [facility] [address] [place] [address] Dr. Prince CastellanoICKelley 12-09-4383IWSCMFUZHY3.7 mg/dLNormal<=19.9The [facility] HospitalComment on above:Performed By: #### SALYC, HSTROPN, ETH, ACET, CMP #### [facility] [address] [address] [address] Prince Santiago, HIGH SENSITIVITYon 82-15-5188EQOLMP91.2 pg/mLNormal 4.0-76.1The [facility] HospitalComment on above:Result Comment: CUT-OFF POINTS HAVE BEEN ESTABLISHED BASED ON THE FOURTH UNIVERSAL DEFINITIONS OF MYOCARDIAL INFARCTION. THE UPPER REFERENCE LIMIT (URL) OF TROPONIN, DEFINED THE 99TH PERCENTILE OF cTnI DISTRIBUTION IN A REFERENCE POPULATION, HAS BEEN CONFIRMED THE DECISION THRESHOLD FOR TN DIAGNOSIS.Performed By: #### CBC #### [facility] [address] [address] [address] Prince SosaXR CHEST 1 Von 86-55-3500VW CHEST 1 VCHEST X-RAY HISTORY: Chest pain COMPARISON: 11/21/2011 TECHNIQUE: [...] Electronically authenticated by: ALYSSA YANEZ Date: 2021-10-17 00:57NoSuburban Community Hospital & Brentwood HospitalXR ELBOW LT MIN 3 VIEWSon 29-58-9208LK ELBOW LT MIN 3 VIEWS EXAM: XR ELBOW LT MIN 3 VIEWS HISTORY: The patient is a 56-year-old male with left elbow swelling. COMPARISON: None. FINDINGS: The left elbow joint is radiographically negative with no evidence of fracture, dislocation, fat pad elevation, or other osseous or articular abnormalities. IMPRESSION: Negative. Electronically authenticated by: LIZETH MOORE Date: 2021-10-17 00:47NormTriHealth Bethesda North HospitalXR PELVIS 1_2 VIEWSon 47-94-4737OW PELVIS 1_2 VIEWSEXAM: XR PELVIS 1_2 VIEWS HISTORY: The patient [...] Electronically authenticated by: LIZETH MOORE Date: 2021-10-17 00:48[facility] FoundationCardiovascular Lab Reporton 26-58-5664Bszofnzlykzuqv Lab Report [facility] Patient Name: Leida Hou [facility] MR #: [id number] Physician: Sheldon Mendoza of [facility] Date: 10/18/2020 Division of Birthdate: 1965 Cardiology Room #: [facility] [address] [place] [address] Cardiovascular Laboratory Report INDICATION: The patient is [...] the informed consent. He was brought to chemical laboratory chief in a fasting state. The right groin [...] access. Therefore, this was upsized to a 6-Moldovan x 11 cm sheath. Access was obtained using same technique in the right common femoral vein and a 6-Moldovan x 11 cm sheath was placed. A 6-Moldovan Martinez catheter was used for right heart catheterization with measurement of pressures and calculation of cardiac output using the estimated Emmanuel method. Martinez catheter was removed. Bilateral selective coronary angiography was then performed using 6-Moldovan JL4 and JR4 diagnostic catheters. Catheters were removed. The 6-Moldovan JR4 diagnostic catheter was used to selectively engage the saphenous venous graft to the diagonal 1 and the radial graft to the OM1 and a 6-Moldovan AR2 diagnostic catheter was used to selectively engage the saphenous venous graft to the PDA. Catheters were removed. A 6-Moldovan TEAGAN catheter was used to selectively engage [...] segment of that obtuse marginal branch and krkh-tq-prlf collateral circulation filling the second obtuse marginal [...] FINDINGS: 1. Severe 3-vessel (more content not included)...NormalThe Cleveland Clinic FoundationPROGRESSon 68-30-4570XXLJAJNBRKX ID: [id number]: Josefina Ware (Claudia) Sameer: (none)Author Type: Physician [...] excision - Segments of colon with chronicactive inflammationand inflamed granulation tissue.2. Appendix, excision - Appendix with diverticular disease, acuteserositis, and fibrous adhesions.3. Small bowel, segmental resection - Patchy chromic active enteritiswith ulcer, pyloric gland metaplasia, fibroinflammatory adhesions, andperienteric abscess with fistula formation4. Sigmoid colon, resection- Diverticular disease with patchy chronic inflammation, hemosiderin-ladenmacrophages, acute serositis, and fibrous adhesions.- Benign lymph nodes.Review of systems:General: is doing very well. He is fatigued but overall hisenergy is improving. He denies fevers, chills, SOBPain Control: His pain is under control with Tylenol as neededDiet: He is tolerating a diet without nausea or vomitingBowel Function: He is having regular bowel functionPhysicalExam:BP 121/76 Pulse 85 Temp 36.4 ?C (97.5 [...] 3 months, this appointment was made todayCLAUDIA Abreu-CFebruary 20171:[address] [facility] Metabolic Panlon 64-58-2522Tksoy gap11 mmol/LNormal9-18[facility] HospitalComment on above:Performed By: #### TSCR ####[place] [address]Calcium8.7 mg/dLNormal8.5-10.5[facility] HospitalComment on above:Performed By: #### TSCR ####[place] [address]Chloride101 mmol/BDguveb07-823 [facility] HospitalComment on above:Performed By: #### TSCR ####[place] [address]CO227 mmol/LNormal 23-32[facility] HospitalComment on above:Performed By: #### TSCR ####[place] [id number] mg/dL Normal0.70-1.40[facility] HospitalComment on above:Performed By: #### TSCR ####[place] [address]eGFR (non-black)mL/min/{1.73_m2}Normal>60[facility] HospitalComment on above:Performed By: #### TSCR ####[place] [address]Glucose mass rknx968 mg/vEJegp36-377Cqjqhsyr HospitalComment on above:Performed By: #### TSCR ####[address] [place] [address]Potassium molar conc4.7 mmol/LNormal3.5-5.0 [facility] HospitalComment on above:Performed By: #### TSCR ####[address] [place] [address]Sodium139 mmol/LNormal 135-146[facility] HospitalComment on above:Performed By: #### TSCR ####[place] [address]Urea zlwkgrey99 mg/dL Wibqvt06-76Lcaaycfp HospitalComment on above:Performed By: #### TSCR ####[address] [place] [id number] and Differentialon 57-55-7833Gfk Baso<0.03Normal<0.11[facility] HospitalComment on above:Performed By: #### TSCR ####[place] [address]Abs Mono0.39 k/uLNormal<0.87[facility] HospitalComment on above:Performed By: #### TSCR ####[address] [place] [address]Abs Neut3.18 k/uLNormal1.45-7.50[facility] HospitalComment on above:Performed By: #### TSCR ####[place] [address]Basophils/100 WBC Auto (Bld)0.2 %Normal [facility] HospitalComment on above:Performed By: #### TSCR ####[place] [address]DTYPEAuto DiffNormal [facility] HospitalComment on above:Performed By: #### TSCR ####[address] [place] [phone] 10*3/uLNormal<0.46[facility] HospitalComment on above:Performed By: #### TSCR ####[address] [phone] Eosinophils/100 leukocytes4.3 %NormalFawalter e. fernald developmental center HospitalComment on above:Performed By: #### TSCR ####[place] [address]Erythrocyte distribution width Auto Ratio (RBC)13.9 %Normal 11.5-15.0[facility] HospitalComment on above:Performed By: #### TSCR ####[place] [address]Erythrocytes (RBC)3.33 10*6/uLLow4.20-6.00[facility] HospitalComment on above:Performed By: #### TSCR ####[address] [phone] Hematocrit (HCT)28.2 %Low39.0-51.0[facility] HospitalComment on above:Performed By: #### TSCR ####[place] [phone] mass conc (Bld)9.6 g/dLLow13.0-17.0[facility] Comment on above:Performed By: #### TSCR ####[address] [phone] 10*3/uLNormal1.00-4.00 [facility] HospitalComment on above:Performed By: #### TSCR ####[place] [phone]/100 puvvorflpj89.3 %NormalFawalter e. fernald developmental center HospitalComment on above:Performed By: #### TSCR ####[address] [address]-476-7110MCH28.8 bSFedink71.0-34.0[facility] HospitalComment on above:Performed By: #### TSCR ####[place] [address]MCHC mass conc (RBC)34.0 g/sHHswvqq53.5-36.0[facility] HospitalComment on above:Performed By: #### TSCR ####[address] [address]MCV84.7 lXHyihij91.0-100.0[facility] HospitalComment on above: Performed By: #### TSCR ####[place] [address]Monocytes/100 leukocytes8.0 %NormalGlide HospitalComment on above:Performed By: #### TSCR ####[place] [phone]/100 WBC Auto (Bld)65.2 %NormalGlide Hospital Comment on above:Performed By: #### TSCR ####[place] [phone] mean volume (PMV)10.3 fLNormal 9.0-12.7[facility] HospitalComment on above:Performed By: #### TSCR ####[place] [address]Platelets115 10*3/uL Xfh957-212Zpsrydxu HospitalComment on above:Performed By: #### TSCR ####[place] [phone] (Leukocytes)4.88 10*3/uLNormal3.70-11.00[facility] HospitalComment on above:Performed By: #### TSCR ####[place] [phone] 33-48-9685DMNZQVF ID: [id number]: Josefina Tyler) OttonielonicoService: ColorectalAuthor Type: Physician AssistantType: Discharge SummariesFiled: 03/30/2017 2:21 PMNote Text:DISCHARGE SUMMARYPATIENT NAME: Leida Hou ADMISSION DATE: 03/25/2017MRN: [id number] DISCHARGE DATE: 03/30/2017ATTENDING PHYSICIAN: Pelon MyersEASISSA FOR HOSPITALIZATION: Scheduled SurgeryDIAGNOSIS: Diverticulitis with a bowel obstructionOPERATIONS DURING HOSPITALIZATION: Sigmoid colectomy, small bowelresection x2, and appendectomyPROCEDURES DURING HOSPITALIZATION: Intubation for surgeryHOSPITAL COURSE:Mr. Hou was admitted following the above described operation, which wasperformed without complication. Post operatively [facility]. He was [...] HOSPITALIZATION: NonePATIENT CONDITION AT DISCHARGE: StableDISCHARGE DISPOSITION: Home/SelfCareINFORMATION PROVIDED TO PATIENT:Home Going Instructions After an Abdominal OperationSymptoms orhealth problems to watch for after I leave the hospital:-Increasing abdominal pain or odfbghbe-Cdabimyd-Mvoq or no urine-Fever greater than 101.5?F (38.6?C) or chills-Unable to take in liquids or solid foods for greater than 24 hours-Shortness of breath-Chest pain- Racing heartbeat-Difficulty urinating-Bloody, dark, or tarry stool from [...] food at a time.Acceptable FoodsBread and butterCanned applesauceC anned peaches or pearsFishMashed potatoesMeats without skin casingWell-cooked vegetablesUnacceptable Foods*Bran cereals, nuts, popcorn, or seedsCanned pineapple or fruit cocktailCarbonated drinksDried fruit or coconutMushrooms or cornRaw fruit (except bananas)Raw vegetables*Any food not chewable tomashed potato consistency.2. Alcohol: Alcoholic beverages, in moderation, are acceptable, butshouldbe avoided while using narcotics.3. Activity: Walking is encouraged, and climbing stairs is acceptable,but strenuous activity (e.g., lifting objects weighing over 15 lbs,sit-ups, press-ups) should beavoided for 4- 6 weeks after open surgery or2-4 weeks after laparoscopic surgery.4. Driving: Do not drive a vehicle for two weeks after surgery or whiletaking narcotics. When you return to driving, donot go alone the firsttime.5. Wound care: Unless otherwise instructed, leave incisions uncovered.You may daily shower, and afterwards gently dry the wound.6. Medications: These should be taken as inst ructed by your surgeonincluding:Pain medications: Tylenol, Vicodin, Oxycodone, [...] removal is listedbelow, the office is located at:[address] [phone] [facility] is [facility] on the first [facility] security [facility] and the [facility]- appointment reminders:Future AppointmentsDate Time Provider Department Center04/07/2017 1:40 PM [id number] DAWN (CLAUDIA) [id number] FLOURNOY MCDISCHARGE MEDICATION:Current Discharge Medication ListSTART taking these medicationsoxyCODONE IR (ROXICODONE) 5 mgTake 5 mg by mouth every 6 hours as needed for Pain.Earliest Fill Date: 03/30/17Qty: 20 tablet Refills: 0Associated Diagnoses:Acute painacetaminophen (TYLENOL) 650 mgTake 650 mgby mouth every 6 hours as needed for [...] (small bowel obstruction); Diverticulosis oflarge intestine without hemorrhage;Preoperative examinationTIME OF CARE (Use first blank if not applicable):SIGNATURE: Josefina Dawn PA-C PATIENT NAME: Leida HouDATE: March 30, 2017 : 2:11 PM PAGER/CONTACT#: [phone] [facility] Health CenterMagnesiumon 19-34-1254Wcbqxzusm3.3 mg/dLNormal1.7-2.6FKindred Hospital NortheastComment on above:Result Comment: ReviewedPerformed By: #### TSCR ####[facility] [place], [place] [phone] [facility] 33-80-9613WHYITHE [facility] ID: [id number]: Coral Bassett (Ocean Rescue Lieutenant)Service: (none)Author Type: TechnicianType: Plan of CareFiled: 04/01/2017 10:33 AMNote Text: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 Patient to use [facility] Bedside Delivery - YES2. If fax, patient would like us to fax prescriptions to [facility] a. Pharmacy: b. Location: c. Phone:3. Insurance card on file - YES4. Credit card for payment - N/ANormalNor[facility] OF CAREHNO ID: [id number]: Jennifer Corea (Pharmacist)Service: PharmacyAuthor Type: PharmacistType: Plan of CareFiled: 03/30/2017 10:22 AMNote Text:DISCHARGE MEDICATION REVIEW BY PHARMACYPatient Name: Leida Hou : [id number] Admission Date: 03/25/2017Date of Contact: March 30, 2017 Time of Contact: 10:21 AMMedication list was reviewed by a Pharmacist for drug interactions or drugrelated problems:Jaime Corea, PharmacistFebruary 2017 10:21 AMMedication ListSTART taking these medications acetaminophen 325 mg tabletCommonly known as: TYLENOLTake 2 tablets by mouth every6 hours as needed for Pain. ibuprofen 600 mg tabletCommonly known as: MOTRINTake 1 tablet by mouth every 8 hours as needed for Pain. oxyCODONE IR 5 mg immediate release tabletCommonly known as: ROXICODONETake 1 tablet by mouth every 6 hours as needed for Pain for up to 5 days.Earliest Fill Date: 03/30CONTINUE taking these medications aspirin, enteric coated 81 mg EC tabletCommonly known as: ASPIRIN, ENTERIC COATED COREG 25 mg tabletGeneric drug: carvedilol insulin glargine 100 unit/mL injectionCommonly known as: LANTUS lisinopril 10 mg tabletCommonly known as: ZESTRIL, PRINIVIL omeprazole 20mg capsuleCommonly known as: PriLOSEC rosuvastatin 20 mg tabletCommonly known as: CRESTOR STOOL SOFTENER 100 mg capsuleGeneric drug: docusate sodiumWhere to Get Your MedicationsInformation about where to get these medications is not yet available ! 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 , small bowel resection x2, appendectomy, anddrainage [...] lb 7 oz) SpO2 97% BMI 24.61 kg/n4TXZPKZV: alert, NADLUNGS: breathing comfortablyABDOMEN: soft, incision c/d/iEXTREMITIES: well perfused and warmDate 03/29/17 0700 - 03/30/17 0659 03/30/17 0700 - 03/31/17 0659Shift 3647-3675 5320-0389 5464-0295 24 Hour Total 8408-3644 [id number] 24 Hour TotalINTAKE PO 340 340 PO [...] 8.5 -- 8.6Robert Dulce Maria, DOGeneral Surgery, [id number] HospitalPhosphoruson 08-59-8680Vcgedlihq8.0 mg/dLNormal2.5-4.5[facility] Hospital Comment on above:Performed By: #### TSCR ####[place] [phone] Metabolic Panlon 14-04-3312Mgmeg gap 11 mmol/LNormal9-18[facility] HospitalComment on above:Performed By: #### CONABO ####[phone] 8.5 mg/dLNormal8.5-10.5[facility] HospitalComment on above:Performed By: #### CONABO ####[place] [address] Kawcqshl620 mmol/BBwoevw55-141Qxiyfrjq HospitalComment on above:Performed By: #### CONABO ####[place] [address]CO226 mmol/NCqkort83-54Fufipmhz HospitalComment on above: Performed By: #### CONABO ####[place] [phone] mg/dLNormal0.70-1.40[facility] HospitalComment on above:Performed By: #### CONABO ####[place] [phone] (non-black)mL/min/{1.73_m2}Normal>60 [facility] CenterComment on above:Performed By: #### CONABO ####[phone] mass lyvd597 mg/fNTtzy43-167Dcpvukcc HospitalComment on above:Performed By: #### CONABO ####[place] [phone] molar conc4.0 mmol/LNormal3.5-5.0[facility] HospitalComment on above:Performed By: #### CONABO ####[place] [address]Sodium138 mmol/KWdelwv305-592Njspyuoo HospitalComment on above: Performed By: #### CONABO ####[place] [address]Urea mg/xRIpnryw05-55Xxxxdbeh HospitalComment on above:Performed By: #### CONABO ####[place] [address]CBC and Differentialon 00-18-6959Epf Baso <0.03Normal<0.11[facility] HospitalComment on above:Performed By: #### CONABO ####[place] [address]Abs [place] 0.30 k/uLNormal<0.87[facility] HospitalComment on above:Performed By: #### CONABO ####[place] [address]Abs Neut 3.02 k/uLNormal1.45-7.50[facility] HospitalComment on above:Performed By: #### CONABO ####[place] [address] Basophils/100 WBC Auto (Bld)0.0 %NormalGlide HospitalComment on above: Performed By: #### CONABO ####[place] [address]DTYPEAuto DiffNormalGlide HospitalComment on above:Performed By: #### CONABO ####[place] [phone] 10*3/uLNormal<0.46[facility] HospitalComment on above:Performed By: #### CONABO ####[place] [phone]/100 leukocytes3.3 %Normal [facility] HospitalComment on above:Performed By: #### CONABO ####[place] [phone] distribution width Auto Ratio (RBC)13.9 %Acdocf80.5-15.0[facility] HospitalComment on above:Performed By: #### CONABO ####[place] [address]Erythrocytes (RBC)3.13 10*6/uLLow4.20-6.00 [facility] HospitalComment on above:Performed By: #### CONABO ####[place] [phone] (HCT)26.2 % Low39.0-51.0[facility] HospitalComment on above:Performed By: #### CONABO ####[place] [address] Hemoglobin mass conc (Bld)9.2 g/dLLow13.0-17.0[facility] HospitalComment on above: Performed By: #### CONABO ####[place] [phone] 10*3/uLNormal1.00-4.00[facility] CenterComment on above:Performed By: #### CONABO ####[place] [phone]/100 tqwpskgcki42.7 %Normal [facility] HospitalComment on above:Performed By: #### CONABO ####[address]476-[address]MCH29.4 pGNormal 26.0-34.0[facility] HospitalComment on above:Performed By: #### CONABO ####[address]476-7110MCHC mass conc (RBC)35.1 g/kENsegfg35.5-36.0[facility] HospitalComment on above:Performed By: #### CONABO ####[address]476-7110MCV83.7 fDEyrlca92.0-100.0[facility] HospitalComment on above: Performed By: #### CONABO ####[address]476-7110Monocytes/100 leukocytes6.6 %NormalGlide HospitalComment on above:Performed By: #### CONABO ####[place] [address]Neutrophils/100 WBC Auto (Bld)66.4 %Normal [facility] HospitalComment on above:Performed By: #### CONABO ####[place] [address]3696-7110Platelet mean volume (PMV)10.2 fLNormal9.0-12.7[facility] HospitalComment on above:Performed By: #### CONABO ####[place] [address] Cbbduokpl14 10*3/dPObr805-390Ztzajsfj HospitalComment on above:Result Comment: Result checked and verifiedSample checked for a clot.Performed By: #### CONABO ####[place] [phone] (Leukocytes)4.55 10*3/uLNormal3.70-11.00[facility] HospitalComment on above: Performed By: #### CONABO ####[place] [address] [place], [place] [phone] 10-14-6060Wvqzknptc9.6 mg/dLLow1.7-2.6FKindred Hospital NortheastComment on above:Performed By: #### TSCR ####[place] [address] [place], [place] [phone] PROGon 40-05-9800TRFRWLT PROGHNO ID: [id number]: Abena BaiRn) Ana Stone: (none)Author Type: Registered NurseType: Nursing Progress NoteFiled: 03/29/2017 7:46 PMNote Text: Nursing Progress NotePatient Name: Leida HouMRN: [id number] [facility] Daily Note:This note was completed by: Abena Stone, [id number] Ernie Hou pt of [facility]. Pt has bloody stools, on GI soft diet.Should the entereg be held or given? Miladis COHEN [address]47[address] Sent text page,awaiting response.Normal [facility] ID: [id number]: Francesca Arciniega) Ana Duffy: (none)Author Type: Registered NurseType: Nursing Progress NoteFiled: 03/29/2017 3:48 PMNote Text: Nursing Progress NotePatient Name: Leida HouMRN: [id number] Location: [address]/JA-PY7N-38 Patient AANDOx3, walking halls independently, denies N/V, still having somesmall bloody liquid BMs however no clots. Midline andre CDI. 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 , small bowel resection x2, appendectomy, anddrainage of pelvic abscess for diverticulitis.- Continue clears for now, potential for advancing diet- Reduce IVFs- Pain and nausea control- Home meds- No more indication for transfusion at this point- Entereg, docusate- Replete Mg and Phos- IS, OOB/Ambulate- DVT prophylaxisWill discuss plan with staff.SUBJECTIVE: Hgbwas low yesterday requiring 2 units pRBCs, appropriateresponse, Hgb 9.0 -> 9.2, afebrile, no leuk ocytosis, vitals stable, +bowelfunction.OBJECTIVE:BP 156/82 Pulse 94 Temp 36.3 ?C (97.4 ?F) (Oral) Resp 18 Ht 182.9cm (6') Wt 84.2 kg (185 lb 10 oz) SpO2 98% BMI 25.18 kg/h5PRKFGZX: alert, NADLUNGS: breathing comfortablyABDOMEN: soft, incision c/d/iEXTREMITIES: well perfused and warmDate 03/28/17 0700 - 03/29/17 0659 03/29/17 07 - 03/30/17 0659Shift 0920-3133 1500- 2259 5565-6995 24 Hour Total 8137-2587 9446-32665481-8552 24 Hour TotalINTAKE PO 120 120 PO 120 120 IV 1665 1665 D5 0.45%NS 1665 1665 Blood Products 353 245 598 PRBC Intake (mL) 352 244 596 Packed Red Blood Cells Number of Units 1 1 2 Other Amount Wasted PRBC 0 mL 0 mL 0 mL Shift Total 473 1910 2383OUTPUT Urine 7410197 400 1974 300 300 Void (ml) 500 4787 604 8982 300 300 # of BMs Number of BMs 1 x 3 x 0 x 4 x Stool 20 20 Liquid BM (mL) 20 20 Shift Total 520 3626 081 7588 300 300Weight (kg) 90.5 90.5 90.5 90.5 84.2 84.2 84.2 84.2Recent Labs 03/28/1820WBC 4.55 -- 5.29 8.11 -- 6.37HB 9.2* 9.0* 7.4* 8.4* -- 7.9*HCT 26.2* 26.6* 21.9* 24.9* -- 23. 7*PLT 90* -- 87* 123* -- 97*NA 138 [...] 8.6 -- 8.5 8.1*[place] العراقي, DOGeneral Surgery, PGY-[id number] HospitalPhosphoruson 96-32-2607Tedluvowr3.2 mg/dLLow 2.5-4.5FKindred Hospital NortheastComment on above:Performed By: #### TSCR ####[address] [phone] Metabolic Panlon 21-24-1069Jclzl gap10 mmol/LNormal9-18FKindred Hospital NortheastComment on above: Performed By: #### CONABO ####[place] [address]Calcium8.6 mg/dLNormal8.5-10.5[facility] HospitalComment on above:Performed By: #### CONABO ####[place] [address]Chloride103 mmol/VKwerti58-417Ybbjmfkl HospitalComment on above:Performed By: #### CONABO ####[place] [address]CO226 mmol/KZrobvx32-39Wxatjdwj HospitalComment on above:Performed By: #### CONABO ####[place] [address]Creatinine0.89 mg/dLNormal0.70-1.40 [facility] HospitalComment on above:Performed By: #### CONABO ####[place] [address]eGFR (non-black) mL/min/{1.73_m2}Normal>60[facility] HospitalComment on above:Performed By: #### CONABO ####[place] [address] Glucose mass wzsa638 mg/fRIwbx89-528Mdcbbrjt HospitalComment on above:Performed By: #### CONABO ####[place] [address]Potassium molar conc4.9 mmol/LNormal3.5-5.0[facility] Comment on above:Performed By: #### CONABO ####[place] [address]Sodium139 mmol/ACgmwtg744-633Kvmwxfxs HospitalComment on above:Performed By: #### CONABO ####[place] [address]Urea zqgdvbna25 mg/uRHkoese51-78 [facility] HospitalComment on above:Performed By: #### CONABO ####[place] [phone] and Differentialon 64-04-1401Wjo Baso<0.03Normal<0.11[facility] HospitalComment on above:Performed By: #### CONABO ####[place] [address]Abs Mono0.51 k/uLNormal<0.87[facility] HospitalComment on above: Performed By: #### CONABO ####[place] [address]Abs Neut3.94 k/uLNormal1.45-7.50[facility] HospitalComment on above:Performed By: #### CONABO ####[place] [phone]/100 WBC Auto (Bld)0.2 %Normal [facility] HospitalComment on above:Performed By: #### CONABO ####[address]476-[address]DTYPEAuto DiffNormal [facility] Health CenterComment on above:Performed By: #### CONABO ####[place] [address]Eosinophils0.04 10*3/uLNormal<0.46[facility] HospitalComment on above:Performed By: #### CONABO ####[place] [address] Eosinophils/100 leukocytes0.8 %NormalGlide HospitalComment on above:Performed By: #### CONABO ####[place] [phone] distribution width Auto Ratio (RBC)13.6 %Normal 11.5-15.0[facility] HospitalComment on above:Performed By: #### CONABO ####[place] [address] Erythrocytes (RBC)2.56 10*6/uLLow4.20-6.00[facility] HospitalComment on above: Performed By: #### CONABO ####[place] [address]Hematocrit (HCT)21.9 %Low39.0-51.0[facility] HospitalComment on above:Performed By: #### CONABO ####[place] [address]Hemoglobin mass conc (Bld)7.4 g/dLLow 13.0-17.0[facility] HospitalComment on above:Performed By: #### CONABO ####[place] [address] Lymphocytes0.79 10*3/uLLow1.00-4.00[facility] HospitalComment on above:Performed By: #### CONABO ####[place] [address]Lymphocytes/100 wjxnbzqvyg51.9 %NormalGlide HospitalComment on above:Performed By: #### CONABO ####[place] [address]MCH28.9 zLAaypqe68.0-34.0[facility] Comment on above:Performed By: #### CONABO ####[place] [address]MCHC mass conc (RBC)33.8 g/dLNormal 30.5-36.0[facility] HospitalComment on above:Performed By: #### CONABO ####[place] [address]MCV85.5 yDNxbaju83.0-100.0[facility] HospitalComment on above:Performed By: #### CONABO ####[place] [phone] Monocytes/100 leukocytes9.6 %NormalSolomon Carter Fuller Mental Health CenterComment on above:Performed By: #### CONABO ####[place] 0427111216-476-7110Neutrophils/100 WBC Auto (Bld)74.5 %NormalSolomon Carter Fuller Mental Health Center Comment on above:Performed By: #### CONABO ####[place] [phone] mean volume (PMV)10.2 fLNormal 9.0-12.7FKindred Hospital NortheastComment on above:Performed By: #### CONABO ####[place] [phone] 10*3/uL Flv934-395Numwgggj HospitalComment on above:Result Comment: Result checked and verifiedSample checked for a clot.Performed By: #### CONABO ####[place] [phone] (Leukocytes)5.29 10*3/uLNormal3.70-11.00[facility] Health CenterComment on above:Performed By: #### CONABO ####[place] [phone] Hematocriton 66-88-8616Aycwlwfdox (HCT)26.6 %Low39.0-51.0[facility] Comment on above:Performed By: #### CONABO ####[place] [phone] 60-44-8518Swuldyuruh mass conc (Bld)9.0 g/dLLow13.0-17.0[facility] Health CenterComment on above:Performed By: #### CONABO ####[place] [phone] Magnesiumon 04-21-2960Fdexnzurb7.0 mg/dLNormal1.7-2.6[facility] HospitalComment on above:Performed By: #### CONABO ####[facility] [place], [place] [phone] PROGon 00-67-3182PHEFALZ PROGHNO ID: [id number]: Yanci Del Cid (Rn) Paul RNService: (none)Author Type: Registered NurseType: Nursing Progress NoteFiled: 03/28/2017 4:17 PMNote Text: Nursing Progress NotePatient Name: Leida HouMRN: [id number] Location: [place] [address]/GJ-PR4C-02 Daily Note:Pt assisted up to bathroom. Pt assessment completed at bedside. Midlineopen to air, C/D/I. FLAKING ROLL OPERATOR infusing as ordered. MITCHEL drain serosanguinousdrainage. Denies n/v vomiting at this time. Lake removed before day shiftand 50cc of urine output in urinal at this time. PAS on b/l. Pt statespain managed at this time and denies heartburn currently. Call light andpain button atbedside, no other needs at this time, will continue tomonitor.1100 Dr. Cortez at bedside. New orders received for 2 units of PRBCinfused slowly with 20cc lasix in between. Pt and family updated and aware.1147 Surgery resident at bedside obtaining consent and removing MITCHEL drain.1300 This RN and Sherwin COHEN at patient bedside to verify and begin bloodadministration as ordered. IVFs on KVO as orderedduring infusion. Familyat bedside. Will monitor.1500 Orders received to d/c FLAKING ROLL OPERATOR pump, with IV and PO pain medicationsordered. Pt ambulating floor. First unit of PRBCs infusing without issueas ordered. Pt aware of orders.1615 2nd unit of PRBC infusion began after IV lasix given as ordered. Pttolerating infusion at this time. Will monitor. 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 Distension - nilIncision: wound clean , dry , intactDrains: SSADate 03/27/17 1500 - 03/28/17 0659Shift 1896-3622 6627-4262 24 Hour TotalINTAKE PO 0 0 PO 0 0 IV 265 790 D5 0.45%NS 265 265 LR 525 Blood Products PRBC Intake (mL) Packed Red Blood Cells Number of Units Other Amount Wasted PRBC Shift Total 265 790OUTPUT Urine 1075 75 0 2650 Void (ml) Tube Output ([REMOVED] Indwelling Urinary Catheter 03/25/17 1520Foley 16 Fr 03/28/17 0652) 8560 896 7613 Emesis 50 50 Emesis (ml) 50 50 Tubes 10 40 75 Drain/Tube Output ([REMOVED] Drain/Tube 03/25/17 1858 Zen PrattLeft Anterior;Lower Quadrant Abdomen Drain #1 03/28/17 1130) [...] Patch TRANSDERMAL(PACU) PRNdextrose 40 % 15 g (INSTA- GLUCOSE) 15 g ORAL PRNglucagon 1 mg injection (GLUCAGEN) 1 mg INTRAMUSCULAR PRNdextrose 50% in water 25 mL syringe 12.5 g INTRAVENOUS PRNacetaminophen 650 mg tab(s) (TYLENOL) 650 mg ORAL q 6 Hondansetron 4 mg tab(s) (ZOFRAN) 4 mg ORAL q 6 H PRNondansetron (PF) 4 mg injection (ZOFRAN) 4 mg INTRAVENOUS q 6 H PRNinsulin lisproinjection (rapid acting) (HumaLOG) SUBCUTANEOUS q 6 Hheparin 5,000 Units injection 5,000 Units SUBCUTANEOUS q 12 HCBC, BMP, MG, PHOSRecent Labs 03/27/1812WBC 5.29 8.11 -- 6.37 16.21*HB 7.4* 8.4* -- 7.9* 10.2*HCT 21.9* 24.9* -- 23.7* 30.1*PLT 87*123* -- 97* 131*NA 139 -- 141 139 139K 4.9 -- 4.7 4.5 4.7CHLOR 103 -- 105 104 102CO2 26 -- 26 26 21*BUN 21 -- 38* 48* 34*CREAT 0.89 -- 1.09 1.50* 2.63*GLUC 171* -- 160* 158* 177*CA 8.6 -- 8.5 8.1* 8.0*MG 2.0 -- -- 2.1 1.9P 2.2* -- -- 2.8 6.7*Liver Function, Amylase, AND LipaseRecent Labs LACT 1.5CoagsNo results for input(s): APTT, INR in the last 12452 hours.Invalid input(s): KSPJKTZHBFAH15 year old male POD# 3 s/p Laparoscopic adhesiolysis, Open sigmoidcolectomy + 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 The patient?sconcerns have been addressed and he/she agrees to proceed with today?splan of care.Jyoti BakerPGY1,General SurgeryNormalFaMetropolitan State HospitalPhosphoruson 64-40-0381Qqbmsyesu6.2 mg/dLLow2.5-4.5FKindred Hospital NortheastComment on above: Performed By: #### CONABO ####[address] [phone] Metabolic Panlon 32-54-2734Dlhwv gap10 mmol/LNormal9-18 [facility] Health CenterComment on above:Performed By: #### CBCDIF ####[address] [phone] mg/dLNormal 8.5-10.5[facility] HospitalComment on above:Performed By: #### CBCDIF ####[place] [address]Chloride105 mmol/L Uacnah19-726Ikfewlym HospitalComment on above:Performed By: #### CBCDIF ####[place] [address]3696-71[address]CO226 mmol/BWktpnw94-41Mxcidvtc HospitalComment on above:Performed By: #### CBCDIF ####[place] [address] Creatinine1.09 mg/dLNormal0.70-1.40[facility] HospitalComment on above:Performed By: #### CBCDIF ####[place] [address]-71[address]eGFR (non-black)mL/min/{1.73_m2}Normal>60[facility] Comment on above:Performed By: #### CBCDIF ####[place] [phone] mass yooi350 mg/rGExxu68-056 [facility] CenterComment on above:Performed By: #### CBCDIF ####[place] [phone] molar conc 4.7 mmol/LNormal3.5-5.0[facility] HospitalComment on above:Performed By: #### CBCDIF ####[place] [address] Djeqrf894 mmol/EMrracq730-409Qqfbhjer HospitalComment on above:Performed By: #### CBCDIF ####[place] [address]-476-7110Urea igeumwty39 mg/bNUfhx57-03Ffvuczim HospitalComment on above:Performed By: #### CBCDIF ####[place] [address]-476-7110Anion gap9 mmol/LNormal9-18[facility] HospitalComment on above:Performed By: #### CBCDIF ####[place] 8036[address]-71[address]Calcium8.1 mg/dLLow8.5-10.5[facility] HospitalComment on above:Performed By: #### CBCDIF ####[place] 8036[address]-71[address]Chloride104 mmol/MEpgkdo55-531 [facility] HospitalComment on above:Performed By: #### CBCDIF ####[place] 803696-71[address]CO226 mmol/LNormal 23-32[facility] HospitalComment on above:Performed By: #### CBCDIF ####[place] 8036[address]-71[address]Creatinine1.50 mg/dL High0.70-1.40[facility] HospitalComment on above:Result Comment: ReviewedPerformed By: #### CBCDIF ####[place] 803696-7110eGFR (non-black)49 .Low>60[facility] HospitalComment on above: Performed By: #### CBCDIF ####[place] 803696-71[address]eGFR (non-black)59 mL/min/{1.73_m2}Low>60[facility] Hospital Comment on above:Performed By: #### CBCDIF ####[place] [phone] mass gkux438 mg/qJTfjr41-515 [facility] HospitalComment on above:Performed By: #### CBCDIF ####[place] [phone] molar conc 4.5 mmol/LNormal3.5-5.0[facility] HospitalComment on above:Performed By: #### CBCDIF ####[place] [address]-476-7110 Ulndam188 mmol/OApfjry696-231Wxxdyvsu HospitalComment on above:Performed By: #### CBCDIF ####[address]476-7110Urea rvzvsmag75 mg/oNVcia10-72Zhyenigu HospitalComment on above:Performed By: #### CBCDIF ####[place] 803696-71[address]CBCon 79-13-6582Hndadqcaagl distribution width Auto Ratio (RBC)13.7 %Jzwcql32.5-15.0[facility] Health CenterComment on above: Performed By: #### CBCDIF ####[place] 803696-7110Erythrocytes (RBC)2.90 10*6/uLLow4.20-6.00[facility] Comment on above:Performed By: #### CBCDIF ####[place] 803696-7110Hematocrit (HCT)24.9 %Low39.0-51.0[facility] CenterComment on above:Performed By: #### CBCDIF ####[place] [address]-476-7110Hemoglobin mass conc (Bld)8.4 g/dL Low13.0-17.0[facility] CenterComment on above:Performed By: #### CBCDIF ####[place] [address]-476-7110MCH29.0 nDWbmmck27.0-34.0[facility] HospitalComment on above:Performed By: #### CBCDIF ####[place] [address]-476-7110MCHC mass conc (RBC)33.7 g/eIQutlju18.5-36.0[facility] HospitalComment on above:Performed By: #### CBCDIF ####[place] [address]-476-7110MCV85.9 qXEsgqws86.0-100.0[facility] HospitalComment on above: Performed By: #### CBCDIF ####[place] [phone] mean volume (PMV)11.0 fLNormal9.0-12.7[facility] HospitalComment on above:Performed By: #### CBCDIF ####[place] [address]-476-7110Platelets123 10*3/hARlh379-661 [facility] HospitalComment on above:Performed By: #### CBCDIF ####[place] [address]-476-7110WBC (Leukocytes)8.11 10*3/uLNormal3.70-11.00[facility] HospitalComment on above:Performed By: #### CBCDIF ####[place] [phone] CBC and Differentialon 34-54-1578Gff Baso<0.03Normal<0.11[facility] Comment on above:Performed By: #### CBCDIF ####[place] [address]-476-7110Abs Mono0.45 k/uLNormal<0.87FaMetropolitan State HospitalComment on above:Performed By: #### CBCDIF ####[place] [address]-476-7110Abs Neut4.98 k/uLNormal1.45-7.50 [facility] HospitalComment on above:Performed By: #### CBCDIF ####[place] 0535016-476-7110Basophils/100 WBC Auto (Bld)0.0 %NormalFawalter e. fernald developmental center HospitalComment on above:Performed By: #### CBCDIF ####[place] [address]-476-7110DTYPEAuto DiffNormalGlide HospitalComment on above:Performed By: #### CBCDIF ####[place] [address]-476-7110 Qccbvgnjnyc02*3/uLNormal<0.46[facility] HospitalComment on above:Performed By: #### CBCDIF ####[address]476-7110Eosinophils/100 leukocytes0.3 %NormalGlide HospitalComment on above:Performed By: #### CBCDIF ####[place] 803696-7110Erythrocyte distribution width Auto Ratio (RBC)13.7 %Guugwa36.5-15.0[facility] CenterComment on above:Performed By: #### CBCDIF ####[place] [address]-7110 Erythrocytes (RBC)2.72 10*6/uLLow4.20-6.00[facility] HospitalComment on above: Performed By: #### CBCDIF ####[place] 803696-7110Hematocrit (HCT)23.7 %Low39.0-51.0[facility] CenterComment on above:Performed By: #### CBCDIF ####[place] [phone] mass conc (Bld)7.9 g/dLLow 13.0-17.0[facility] HospitalComment on above:Performed By: #### CBCDIF ####[place] [phone] Lymphocytes0.92 10*3/uLLow1.00-4.00[facility] HospitalComment on above:Performed By: #### CBCDIF ####[place] 0535016-476-7110Lymphocytes/100 hqdctbosxe15.4 %[facility] HospitalComment on above:Performed By: #### CBCDIF ####[place] 803696-7110MCH29.0 gGFpkaky02.0-34.0[facility] Comment on above:Performed By: #### CBCDIF ####[place] 803696-7110MCHC mass conc (RBC)33.3 g/dLNormal 30.5-36.0[facility] HospitalComment on above:Performed By: #### CBCDIF ####[place] 803696-7110MCV87.1 xKOeronw43.0-100.0[facility] HospitalComment on above:Performed By: #### CBCDIF ####[place] 8036[address]-7110 Monocytes/100 leukocytes7.1 %[facility]:Performed By: #### CBCDIF ####[place] [id number]/100 WBC Auto (Bld)78.2 %[facility] Comment on above:Performed By: #### CBCDIF ####[place] [id number] mean volume (PMV)10.8 fLNormal 9.0-12.7[facility] HospitalComment on above:Performed By: #### CBCDIF ####[place] [id number] 10*3/uLLow 150-400[facility] HospitalComment on above:Result Comment: Result checked and verifiedSample checked for a clot.Performed By: #### CBCDIF ####[place] [id number] (Leukocytes)6.37 10*3/uLNormal3.70-11.00FaMetropolitan State HospitalComment on above:Performed By: #### CBCDIF ####[place] [id number] [place], [place] [id number] Creatinine, Fluidon 29-92-2498Vrutmygzog4.3 mg/dLNormalFaMetropolitan State HospitalComment on above:Result Comment: (NOTE)Serous fluids:Creatinine measurement in peritoneal or drainage fluids is considereda useful test for detecting the presence of urine leaking through adefect in the urinary tract. A ratio of serous fluid creatinine to aconcurrent serum creatinine > 1.0 indicates possible urineextravasation.Amniotic fluid:Creatinine measurement can be performed on amniotic fluid. Theinterpretation of the result is dependent on the clinical context,including gestational age. See referencesbelow.References:1. CLSI. Analysis of Body Fluids in Clinical Chemistry;Approved Guideline. CLSI document C49-A. CLAUDIA Mclean: ClinicalLaboratory Standards [place]; 2007.2. Drew RJ, Gab TA, Manuela JL, Yann VM, Michael CJ.Composition of the amniotic fluid and maternal serum in . AmJ Obstet Gynecol 1974;119:798-810.This test was developed and its performance characteristicsdetermined by[facility]'s [facility] [place] ([facility]). It has not been cleared orapproved by the FDA. [facility] is regulated under CLIA as qualified toperform high-complexity testing. This test is used for clinicalpurposes. It should not be regarded as investigational or forresearch. Performed By: #### CBCDIF ####[facility] [place], [place] [phone] 07-82-6816Owpqbjoal0.1 mg/dLNormal1.7-2.6[facility] HospitalComment on above:Performed By: #### CBCDIF ####[facility] [place], [place] [phone] PROGon [id number] PRONO ID: [id number]: Yanci Del Cid (Rn) JENARO Millerervice: (none)Author Type: Registered NurseType: Nursing Progress NoteFiled: 03/27/2017 6:14 PMNote Text: Nursing Progress NotePatient Name: Leida HouMRN: [id number] Location: [place] [address]/ZA-CJ7J-73 Daily Note:Pt AANDOx3, states pain controlled at this time. FLAKING ROLL OPERATOR pump infusing asordered, PAS on b/l. Pt c/o heartburn and nausea, medicated for each asordered. MITCHEL draining serosanguinous drainage. RN on tele. No other needsat this time, call light in reach, will monitor.1124 Pt BM was 100ml, bloody red stool with 3 dime sized clots present. Ptresting, no needs expressed at thistime, states feeling fine right now .Call light [...] again for omeprazole for patient.1745 Dr. العراقي calledorders received for TUMS. Explained to Thatpatient requesting omeprazole as IV pepcid ineffective. RN told residentTUMS may be acceptable, but omeprazole is preferred and requested.1800 TUMS ordered cleared by pharmacy, Pt refusing TUMS, wants omeprazoleand to speak with resident. Resident paged that patient would like tospeak to him . Family at bedside.[address] العراقي, orders received for PO 40 mg of omeprazole, TUMSand d/c IV pepcid. 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 Distension - nilIncision: wound clean , dry , intactDrains: SSADate 03/26/17 0700 - 03/27/17 0659Shift 8392-7986 3640-6670 6951-6359 24 Hour TotalINTAKE PO 60 60 60 180 PO 60 60 60 180 IV 308 291 599 LR 308 291 599 Shift Total 368 351 60 779OUTPUT Urine 250 388 424 2567 Tube Output ( Indwelling Urinary Catheter 03/25/17 1520 [place] 16Fr) 250 238 448 8850 Emesis 0 0 0 Emesis (ml) 0 [...] 25 mL syringe 12.5 g INTRAVENOUS PRNfentaNYL FLAKING ROLL OPERATOR 20 mcg/mL in NaCl 0.9% 100 mL INTRAVENOUS CONTINUOUSlactated ringers infusion 50 mL/hr INTRAVENOUS CONTINUOUSacetaminophen 650 mg tab(s) (TYLENOL) 650 mg ORAL q 6 Hondansetron 4 mg tab(s) (ZOFRAN) 4 mg ORAL q 6 H PRNondansetron (PF) 4 mg injection (ZOFRAN) 4 mg INTRAVENOUS q 6 H PRNinsulin lispro injection(rapid acting) (HumaLOG) SUBCUTANEOUS q 6 Hheparin 5,000 Units injection 5,000 Units SUBCUTANEOUS q12 HCBC, BMP, MG, PHOSRecent Labs 542 8 005WBC 6.37 16.21* 15.61* 8.57HB 7.9* 10.2* 10.0* 14.6HCT 23.7* 30.1* 29.6* 41.7PLT 97* 131* 131* 126*NA 139 139 -- --K 4.5 4.7 -- --CHLOR 104 102 -- --CO2 26 21* -- --BUN 48* 34* -- --CREAT 1.50* 2.63* -- --GLUC 158*177* -- --CA 8.1* 8.0* -- --MG 2.1 1.9 -- --P 2.8 6.7* -- --Liver Function, Amylase, AND LipaseRecent Labs 680574HAVK 1.5CoagsNo results for input(s): APTT, INR in the last 67245 hours.Invalid i nput(s): GLOQZOMTPCNV79 year old male POD# 2 s/p Laparoscopic adhesiolysis, 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 The patient?sconcerns have been addressed and he/she agrees to proceed with today?splan of care.Jyoti BakerPGY1, General SurgeryAdCare Hospital of WorcesterPhosphoruson 91-69-0910Bwqzqjjsr3.8 mg/dLNormal2.5-4.5FKindred Hospital Northeast Comment on above:Performed By: #### CBCDIF ####[place] [phone] Metabolic Panlon 29-36-8718Lwplz gap 16 mmol/LNormal9-18FKindred Hospital NortheastComment on above:Performed By: #### CBCDIF, BMP, MG1, PHOS ####[address] [address] [phone] mg/dLLow8.5-10.5FKindred Hospital NortheastComment on above: Performed By: #### CBCDIF, BMP, MG1, PHOS ####[address] [phone] mmol/LCvkrem14-636Xbhajamk HospitalComment on above:Performed By: #### CBCDIF, BMP, MG1, PHOS ####[place] [address]CO221 mmol/ZYlg67-38 [facility] HospitalComment on above:Performed By: #### CBCDIF, BMP, MG1, PHOS ####[place] [phone] Creatinine2.63 mg/dLHigh0.70-1.40[facility] HospitalComment on above:Performed By: #### CBCDIF, BMP, MG1, PHOS ####[place] [phone] (non-black)26 .Low>60[facility] HospitalComment on above: Performed By: #### CBCDIF, BMP, MG1, PHOS ####[place] [address]eGFR (non-black)31 mL/min/{1.73_m2}Low>60 Glide HospitalComment on above:Performed By: #### CBCDIF, BMP, MG1, PHOS ####[place] [address]Glucose mass xjdg868 mg/iPPhem28-128Zvupsbal HospitalComment on above:Performed By: #### CBCDIF, BMP, MG1, PHOS ####[place] [phone] molar conc4.7 mmol/LNormal3.5-5.0[facility] Hospital Comment on above:Performed By: #### CBCDIF, BMP, MG1, PHOS ####[place] [address]Sodium139 mmol/LNormal 135-146[facility] HospitalComment on above:Performed By: #### CBCDIF, BMP, MG1, PHOS ####[place] [address]Urea zbuvulbu35 mg/pQBdbd92-53Nnxrwsul HospitalComment on above:Performed By: #### CBCDIF, BMP, MG1, PHOS ####[place] [phone] [place], [place] [phone] MGT INIT ASSRashida 16-47-2547BNKO MGT INIT JESS ID: [id number]: Linh Herrera (Atmospheric Physicist) PealisonuloService: Care ManagementAuthor Type: Social WorkerType: Care Mgt Initial AssessmentFiled: 03/26/2017 1:47 PMNote Text:CARE MANAGEMENT: ASSESSMENT AND DISCHARGE PLANSERVICE DATE: 03/26/2017SERVICE TIME: 1:10 PMPRIMARY CARE PHYSICIAN:Nohemi Phoenix, MDPhone: HWCHAHGIC STATUS: InpatientPOTENTIAL DISCHARGE PLANSHomePatient/Designer Architect Stated G oals: To get wellHealth Insurance: CatchMe! Plus/Adioso Access PPOLiving Arrangement: HomeLives With: Spouse and DaughterFinancial Resources: Retired - Per Pt he retired at age 46 w/gov'tPrimary Contact:Extended Emergency Contact InformationPrimary Emergency Contact: Sepideh HouAddress: [address] [place], [place] [address]Pyvr Qhyaydom: SpouseSupportive:YesOther Important Patient Contacts: NoneCAREGIVER ASSESSMENT:Caregiver is ready, [...] says he willreview first and possibly complete thishospital stayDoes Patient Have Concerns About Advance Directives? NoPRIOR TO ADMISSION:Baseline Mental Status: Alert AND Oriented, Person, Place , Time andSituationFunctional Status: IndependentDoes Patient Currently Receive Any Community Services or Home Care? 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 NoFamily/Patient Understanding of Illness/Diagnosis: goodMedication Adherence:Do you forget to take your medications? I donot forget to take mymedicationHave you ever stopped taking medications because you felt worse? None ofthe timeHave you ever taken less of your medication than what was prescribed byyour doctor? None of the timeIn the past 3 months, have you had issues obtaining one or more of yourmedications? Noneof the timeAre you interested in bedside delivery of your medications? YesFood Concerns:In the LastMonth, Have You had Trouble Getting Food? No trouble gettingfoodDuring the Last Month, Have You Worried Whether Your Food Would Run OutBefore You Had Enough Money to Buy More? NoPsychosocial Needs: NoneUTILIZATION:Last Admission Date: noneIs this Within the Past 30 days? NoHas the Patient Be[facility] Past 30 days? NoFREEDOM OF CHOICE EXPLAINED:Yes Pt. Leida HouPreference: Home/self careHANDOFF COMMUNICATION:Primary Care Physician: Dr. Ricardo Phoenix XUVT met with Pt bedside. Pt Spouse and family present. Pt AANDOx4. CMintroduced self and role of CM. Per Pt he lives home w/spouse and dtr andIPTA w/ADL's. 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 Per Pt he uses [facility] in [place], [place]. Pt spouse inquired onprocess of FMLA although per Pt children the family is able to rotate anyhelp Pt may need going home. CM discussed transitional care w/nursing Josefina Alexander. Pt anticipated home no skilled needs. Pt spouse totransport Pt home when medically cleared. CM will continue to beavailable.SIGNATURE: QUYNH Bassett PATIENT NAME: Leida HouDATE: March 26, 2017 : 1:27 PM PAGER/CONTACT #: [phone] Sanatorium and Differentialon 23-40-8098Xlp Baso<0.03Normal<0.11 [facility] CenterComment on above:Performed By: #### CBCDIF, BMP, MG1, PHOS ####[place] [phone] [place] 0.84 k/uLNormal<0.87Gl[facility] HospitalComment on above:Performed By: #### CBCDIF, BMP, MG1, PHOS ####[place] [address] [phone] Neut13.93 k/uLHigh1.45-7.50[facility] HospitalComment on above: Performed By: #### CBCDIF, BMP, MG1, PHOS ####[place] [phone]/100 WBC Auto (Bld)0.0 %Normal [facility] CenterComment on above:Performed By: #### CBCDIF, BMP, MG1, PHOS ####[place] [phone] DiffNormalSolomon Carter Fuller Mental Health CenterComment on above:Performed By: #### CBCDIF, BMP, MG1, PHOS ####[place] [phone] Kpfdaqrgwho57*3/uLNormal<0.46[facility] HospitalComment on above:Performed By: #### CBCDIF, BMP, MG1, PHOS ####[place] [phone]/100 leukocytes0.0 %NormalGlide Hospital Comment on above:Performed By: #### CBCDIF, BMP, MG1, PHOS ####[place] [phone] distribution width Auto Ratio (RBC)13.6 %Lvrbyq35.5-15.0Gl[facility] HospitalComment on above:Performed By: #### CBCDIF, BMP, MG1, PHOS ####[place] [phone] (RBC)3.52 10*6/uLLow 4.20-6.00[facility] HospitalComment on above:Performed By: #### CBCDIF, BMP, MG1, PHOS ####[place] [phone] Hematocrit (HCT)30.1 %Low39.0-51.0Glide HospitalComment on above:Performed By: #### CBCDIF, BMP, MG1, PHOS ####[place] [phone] mass conc (Bld)10.2 g/dLLow 13.0-17.0[facility] HospitalComment on above:Performed By: #### CBCDIF, BMP, MG1, PHOS ####[place] [phone] Lymphocytes1.44 10*3/uLNormal1.00-4.00[facility] Health CenterComment on above: Performed By: #### CBCDIF, BMP, MG1, PHOS ####[place] [phone]/100 leukocytes8.9 %Normal [facility] Health CenterComment on above:Performed By: #### CBCDIF, BMP, MG1, PHOS ####[place] [address]MCH29.0 cZZdedfw53.0-34.0[facility] HospitalComment on above:Performed By: #### CBCDIF, BMP, MG1, PHOS ####[place] [phone] mass conc (RBC)33.9 g/kCZeqxxs24.5-36.0[facility] Comment on above:Performed By: #### CBCDIF, BMP, MG1, PHOS ####[place] [phone] fLNormal 80.0-100.0[facility] HospitalComment on above:Performed By: #### CBCDIF, BMP, MG1, PHOS ####[place] [phone] Monocytes/100 leukocytes5.2 %NormalGlide HospitalComment on above:Performed By: #### CBCDIF, BMP, MG1, PHOS ####[place] [phone]/100 WBC Auto (Bld)85.9 %Normal [facility] HospitalComment on above:Performed By: #### CBCDIF, BMP, MG1, PHOS ####[place] [phone] mean volume (PMV)11.1 fLNormal9.0-12.7[facility] HospitalComment on above: Performed By: #### CBCDIF, BMP, MG1, PHOS ####[place] [phone] 10*3/sOTsf712-407Ehplhohx HospitalComment on above:Performed By: #### CBCDIF, BMP, MG1, PHOS ####[place] [phone] (Leukocytes)16.21 10*3/uLHigh3.70-11.00Glide HospitalComment on above:Performed By: #### CBCDIF, BMP, MG1, PHOS ####[place] [phone] Baso<0.03Normal<0.11[facility] HospitalComment on above: Performed By: #### CBCDIF ####[place] [phone] Mono0.72 k/uLNormal<0.87Glide HospitalComment on above: Performed By: #### CBCDIF ####[phone] Neut13.93 k/uLHigh1.45-7.50[facility] HospitalComment on above:Performed By: #### CBCDIF ####[phone]/100 WBC Auto (Bld)0.0 %Normal [facility] HospitalComment on above:Performed By: #### CBCDIF ####[place] [phone] DiffNormal Glide HospitalComment on above:Performed By: #### CBCDIF ####[place] [phone]*3/uL Normal<0.46[facility] HospitalComment on above:Performed By: #### CBCDIF ####[place] [phone] Eosinophils/100 leukocytes0.0 %NormalGlide HospitalComment on above:Performed By: #### CBCDIF ####[phone] distribution width Auto Ratio (RBC)13.4 %Normal 11.5-15.0Glide HospitalComment on above:Performed By: #### CBCDIF ####[phone] Erythrocytes (RBC)3.47 10*6/uLLow4.20-6.00Glide HospitalComment on above: Performed By: #### CBCDIF ####[place] [phone] (HCT)29.6 %Low39.0-51.0[facility] HospitalComment on above:Performed By: #### CBCDIF ####[place] [phone] mass conc (Bld)10.0 g/dLLow 13.0-17.0[facility] HospitalComment on above:Performed By: #### CBCDIF ####[phone] Lymphocytes0.96 10*3/uLLow1.00-4.00Gl[facility] HospitalComment on above:Performed By: #### CBCDIF ####[place] [phone]/100 leukocytes6.1 %NormalGlide HospitalComment on above:Performed By: #### CBCDIF ####[place] [phone] yPRvvcfj03.0-34.0[facility] Comment on above:Performed By: #### CBCDIF ####[phone] mass conc (RBC)33.8 g/dLNormal 30.5-36.0Glide HospitalComment on above:Performed By: #### CBCDIF ####[place] [phone] sQPpqexj43.0-100.0Glide HospitalComment on above:Performed By: #### CBCDIF ####[phone] Monocytes/100 leukocytes4.6 %NormalGlide HospitalComment on above:Performed By: #### CBCDIF ####[place] [phone]/100 WBC Auto (Bld)89.3 %NormalGlide Hospital Comment on above:Performed By: #### CBCDIF ####[address], [place] 24207162-092-2168Xgodsudv mean volume (PMV)11.2 fLNormal 9.0-12.7[facility] HospitalComment on above:Performed By: #### CBCGINETTEF ####[place] [phone] 10*3/uL Llu417-674Ngfuwfxx HospitalComment on above:Performed By: #### CBCGINETTEF ####[place] [phone] (Leukocytes)15.61 10*3/uLHigh3.70-11.00[facility] HospitalComment on above: Performed By: #### MARIEF ####[place] [phone] 96-92-7176Pphifzhyo1.9 mg/dLNormal1.7-2.6[facility] HospitalComment on above:Performed By: #### CBCDIF, BMP, MG1, PHOS ####[place] [phone] PROGon 88-84-0809KYFWPDI PROGHNO ID: [id number]: Pauline (Rn) [place], RNService: NursingAuthor Type: Registered NurseType:Nursing Progress NoteFiled: 03/26/2017 5:09 PMNote Text: Nursing Progress NotePatient Name: Leida HouMRN: [id number] Location[facility]3B21/KR-QR6P-29 Daily Note:Pt A+Ox3, speech clear, CODY. Midline dressing [...] low 100s. Pulse ox 96% on RA. 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 Pt reports adequate pain control. Ambulated 3 laps inhalls thus far. Safety maintained, will continue with plan of care.This note was completed by: Pauline Paniagua [facility]NSaint [facility] ID: [id number]: Pattie (Rn) Saman, RNService: (none)Author Type: Registered NurseType: Nursing Progress NoteFiled: 03/25/2017 10:51 PMNote Text: Nursing Progress NotePatient Name: Leida HouMRN: [id number] Location: [place] [address]/LC-MB3Y-86 Transfer Note:Patient transferred into room/unit PK321 at 2215. 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 Distension - nilIncision: dressing clean , dry , intactDrains: SSADate 03/25/17 0700 - 03/26/17 0659Shift 6242-0362 6780-1988 7178-6671 24 Hour TotalINTAKE IV 1768 1768 LR 1768 1768 Other 1250 1250 OR 250 250PACU ([facility] Only) 1000 1000 Shift Total 1250 1768 3018OUTPUT Urine 205 205 TubeOutput ( Indwelling Urinary Catheter 03/25/17 1520 Lake 16Fr) 205 205 Tubes 280 110 390 Drain/Tube Output (Drain/Tube 03/25/17 1858 Zen Verma LeftAnterior;Lower Quadrant Abdomen Drain #1) 280 110 390 Shift Total 485 110 595Weight (kg) 92.8 92.8Current hospital medications:alvimopan 12 mg cap(s) (ENTEREG) 12 mg ORAL BID0.9% NaCl 2-10 mL 2-10 mL INTRAVENOUS q 12 Hscopolamine 1 mg over 3 days1 Patch (TRANSDERM-SCOP) 1 Patch TRANSDERMAL(PACU) PRNscopolamine - VERIFY patch OTHER q 8 Hscopolamine - REMOVE PATCH OTHER ONCEdextrose 40 % 15 g (INSTA-GLUCOSE) 15 g ORAL PRNglucagon 1 mg injection (GLUCAGEN) 1 mg INTRAMUSCULAR PRNdextrose 50% in water 25 mL syringe 12.5 g INTRAVENOUS PRNfentaNYL FLAKING ROLL OPERATOR 20 mcg/mL in NaCl 0.9% 100 [...] q 12 HCBC, BMP, MG, PHOSRecent Labs 8 005WBC 16.21* 15.61* 8.57HB 10.2* 10.0* 14.6HCT 30.1* 29.6* 41.7PLT 131* 131* 126*NA 139 -- --K 4.7 -- --CHLOR 102 -- --CO2 21* -- --BUN 34* -- --CREAT 2.63* -- --GLUC 177* -- --CA 8.0* -- --MG 1.9 -- --P 6.7* -- --Liver Function, Amylase, AND LipaseRecent Labs LACT 1.5CoagsNo results for input(s): APTT,INR in the last 33726 hours.Invalid input(s): WNMFAYACCHHJ88 year old male POD# 1 s/p Laparoscopic adhesiolysis, Open sigmoidcolectomy + 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 The patient?sconcerns have been addressed and he/she agrees to proceed with today?splan of care.Jyoti Frazier, General SurgeryFebruary 20177:50 [facility] ID: [id number]: Jeannine (VIRGILIO Hernandezervice: General SurgeryAuthor Type: ResidentType: Progress NotesFiled: 03/26/2017 1:24 AMNote Text:Leida HouFV-PK3B21/EQ-NL2J-96Jpmhsnqozljxh CheckSurgerySubjective:Pain well- controlled. No N/V.Denies CP/SOB/palpitations/visual changes/weakness/otherObj ective:Vitals: BP (!) 83/47 Pulse 103 Temp 36.4 ?C (97.6 ?F) (Axillary) Resp 18 Ht 182.9 cm (6') Wt 88.7 kg (195 lb 8.8 oz) SpO2 97% BMI26.52 kg/h1Ewfulij: no distress, laying comfortably in bed, alert and orientedPulmonary: non-labored breathingAbdomen: soft, non-distended, expected incisional tendernessIncision(s): intact and dryAssessment:51 year old male POD 0 S/P open sigmoid colectomy, SBR x2, appendectomy,and DAHLIA.Pain well-controlled, exam appropriate, patient BPs running 70-80s/40-50s.Plan:- Continue routine post-operative care- Will give 1 L fluid bolus to see if BP responds to fluids- STAT Lamar Jung MDGeneholzer hospital Surgery, LMG4Oymyq: 763757:23 AM 03/26/2017*Please page General Surgery on-call pager [phone] after 6pm and onweekends.NormalSolomon Carter Fuller Mental Health CenterPhosphoruson 61-29-9306Qudgycuvg9.7 mg/dLHigh2.5-4.5FKindred Hospital Northeast Comment on above:Performed By: #### CBCDIF, BMP, MG1, PHOS ####[place] [address] [place], [place] [phone] Complete Eval FOR WEST USE ONLYon 58-36-0203Obdf ExcessNegativeNormalGlide HospitalComment on above:Result Comment: -3 to 3Performed By: #### ABGRTC ####[place] [address] [place], [place] [phone] (HCO3)18 mmol/UUhu02-32Ebrnmxlm HospitalComment on above:Performed By: #### ABGRTC ####[address] [phone] 1.16 mmol/LNormal1.15-1.35Glide HospitalComment on above:Performed By: #### ABGRTC ####[place] [address] Wjbhjmhm525 mmol/ZPupa39-030Zwkketoi HospitalComment on above:Performed By: #### ABGRTC ####[place] [address] CO234 mm XaPni73-37Vnaogmbf HospitalComment on above:Performed By: #### ABGRTC ####[place] [address]CO219 mmol/LLow22.0-28.0Gl[facility] HospitalComment on above:Performed By: #### ABGRTC ####[place] [address]Glucose mass zapg654 mg/uEQuwu19-890Isuvshwj HospitalComment on above:Performed By: #### ABGRTC ####[place] [address] Hematocrit (HCT)38 %Low42.0-52.0Gl[facility] HospitalComment on above:Performed By: #### ABGRTC ####[place] [address]Hemoglobin mass conc (Bld)12.2 g/bTUgo77-07Kwmmdbmo Hospital Comment on above:Performed By: #### ABGRTC ####[place] [address]Hemoglobin mass conc (Bld)0.8 %Normal 0.4-1.5[facility] HospitalComment on above:Performed By: #### ABGRTC ####[place] [address]Hemoglobin mass conc (Bld)96 %Qrnwhm34-752Yreyblbx HospitalComment on above:Performed By: #### ABGRTC ####[place] [address]210 Hemoglobin mass conc (Bld)1.2 %Normal<2.0Glide HospitalComment on above: Performed By: #### ABGRTC ####[place] [address]Lactate1.5 mmol/LNormal0.4-2.0Gl[facility] HospitalComment on above:Performed By: #### ABGRTC ####[place] [address]O2 Wvsepaynvbbf68.0NormalGlide Hospital Comment on above:Performed By: #### ABGRTC ####[place] [address]O2 snxybvkjed02 %Mpugxq17-67Bsqnuiyd HospitalComment on above:Performed By: #### ABGRTC ####[place] [address]Oxygen in arterial mm Hg Ntti21-649Umirdvdu HospitalComment on above:Performed By: #### ABGRTC ####[place] [address]pH of blood7.34 [pH]Low7.35-7.45Glide HospitalComment on above:Performed By: #### ABGRTC ####[place] [address] PO2FI FOR WEST USE ADGK900 vgTVRqnwdm010-803Gujgwvtp HospitalComment on above: Performed By: #### ABGRTC ####[place] [address]Potassium molar conc4.6 mmol/LNormal3.5-5.0[facility] Comment on above:Performed By: #### ABGRTC ####[place] [address]Sodium135 mmol/NFufhmj853-507Vdfzpngo HospitalComment on above:Performed By: #### ABGRTC ####[place] [address] [place], [place] [phone] Padmini [id number] POSTHNO ID: [id number]: Jeison Plataervice: AnesthesiologyAuthor Type: AnesthesiologistType:Anesthesia PostOpFiled: 03/25/2017 7:38 PMNote Text:POST ANESTHESIA EVALUATION NOTESERVICE DATE: 03/25/2017SERVICE TIME: 7:38 PMDOB: 1965Vitals: [id number]: 124/71Pulse: 88Resp: 16Temp: (!) 35.9 ?C (96.6 [...] 25, 2017 : 7:38 PM PAGER/CONTACT #: [id number] HospitalANES PREOPon [id number] PREOPHNO ID: [id number]: Luis Anguloervice: Pain ManagementAuthor Type: AnesthesiologistType: Anesthesia PreOpFiled: 03/25/2017 10:33 AMNote Text:REGIONAL ANESTHESIOLOGY DAY OF SURGERY NOTEPATIENT NAME: Leida HouMRN: [id number]: 1965Procedure(s) (LRB):LAPAROSCOPIC COLECTOMY SIGMOID COLON W/ COLORECTAL ANASTOMOSIS (N/A)LAPAROSCOPIC RESECTION BOWEL (N/A)Surgeon(s):Pelon Morel body mass index is 26.31 kg/(m2) as calculated from thefollowing: Height as of 03/17/17: 182.9 cm (6'). Weight as of 03/17/17: 88 kg (194 lb).ASA Class: 4Adequate NPO status: YesAllergies:ALLERG IESAllergen Reactions- Codeine Other: See Comments Pt. States causes nauseaAirway Assessment: MP 1;Neck ROM: Full ROM without neurologic symptoms;Airway Evaluation: Short Thyromental DistanceDentition: Teeth intactmultiple missing, poor dentition, none looseSymptoms of Sleep Apnea: DeniesMost recent lab results:No results found for this basename:Hb,HCT,K,Plt,PTSEC,APTT,INR,Creat,hcg,uhcgEKG:Reviewed LVH, NSRVitals: 947BP: 124/71Pulse: 88Resp: 16Temp: (!) 35.9 ?C (96.6 ?F)TempSrc: Tempo ral ArterySpO2: 99%Previous Anesthesia: No history of adverse [...] protocol withpatient and benefits of low opioid anesth.[facility] Chart ReviewACTIVE PROBLEM LISTSmall Bowel ObstructionNo past medical history on file.No past surgical history on file.No family history on file.Social History:Social HistorySubstance Use Topics- Smoking status: Former Smoker- Smokeless tobacco: Current User- Alcohol use Not on fileNo current facility-administered medications on file prior to encounter.No current outpatient prescriptions on file prior to encounter.Inpatient medications reviewed in [facility].I have interviewed and examined the patient. I have reviewed the medicalrecord and/or the pre-anesthesia evaluation, pertinent labs, and testresults.Significant changes in the patient's condition since the History andPhysical, not otherwise documented in primary service progress notes: NoThis contains updated information obtained within 48 hours ofSurgery/Procedure.SIGNATURE: Luis Arthur MD PATIENT NAME: Leida Esposito: March 25, 2017 : 9:53 AM PAGER/CONTACT #:[facility] HospitalBRIEF OP NOTon [id number] OP NOTHNO ID: [id number]: Ritchie Stone (Fel)Service: ColorectalAuthor Type: FellowType: BriefOp NoteFiled: 03/25/2017 7:14 PMNote Text:BRIEF OPERATIVE NOTE - COLORECTAL SURGERYLog ID: [id number]/Procedure Date: 03/25/2017Incision/Procedure Start Time: 3:25 PMIncision Close/Procedure End Time:Surgeon(s) and Customer Solutions Supervisor(s):Surgeon(s) and Role: * Pelon Cotrez - Primary * Ritchie Stone (Fel) - Fellow * Chino العراقي - Resident - Assisting * Mariano Emerson - AssistingNo Additional StaffProcedures and Anesthesia:1. Laparoscopic adhesiolysis2. Open sigmoid colectomy3. Open small bowel resection x24. Adhesiolysis5. Appendectomy6. Drainage of pelvic abscess7. EEA anastomosis Stoma Type: N/AFindings: multiple loops + appendix adherent to perforated chronicdiverticulitis. Intraop frozen section negative for cancerEstimated Blood Loss: 100 mlSpecimens: sigmoid, small bowel x2, appendixDiagnosis Code(s): Pre- Op Diagnosis Codes: * Small bowel obstruction [K56.609]Postop Diagnosis: sameDrains: Yes, MITCHEL in pelvisWound Classification: Class 4, operative dirty wound with fecalcontaminationComplications: NoneSIGNATURE: Ritchie Stone MD PATIENT NAME: Leida Esposito: March 25, 2017 : 7:12 PM PAGER/CONTACT #: [phone] HospitalCBC and Differentialon 79-58-7173Kvx Baso<0.03Normal<0.11FaMetropolitan State HospitalComment on above:Performed By: #### CBCDIF ####[place] [address]Abs Mono0.51 k/uLNormal<0.87[facility] HospitalComment on above: Performed By: #### CBCDIF ####[place] [address]Abs Neut6.39 k/uLNormal1.45-7.50[facility] HospitalComment on above:Performed By: #### CBCDIF ####[place] [address]Basophils/100 WBC Auto (Bld)0.1 %Normal [facility] HospitalComment on above:Performed By: #### CBCDIF ####[place] [address]DTYPEAuto DiffNormal Glide HospitalComment on above:Performed By: #### CBCDIF ####[place] [address]Eosinophils0.11 10*3/uLNormal<0.46[facility] HospitalComment on above:Performed By: #### CBCDIF ####[place] [address] Eosinophils/100 leukocytes1.3 %NormalGlide HospitalComment on above:Performed By: #### CBCDIF ####[place] [address]Erythrocyte distribution width Auto Ratio (RBC)13.2 %Normal 11.5-15.0Glide HospitalComment on above:Performed By: #### CBCDIF ####[place] [address] Erythrocytes (RBC)4.89 10*6/uLNormal4.20-6.00[facility] HospitalComment on above: Performed By: #### CBCDIF ####[place] [address]Hematocrit (HCT)41.7 %Jjsoyx49.0-51.0Glide HospitalComment on above:Performed By: #### CBCDIF ####[place] [address]Hemoglobin mass conc (Bld)14.6 g/dLNormal 13.0-17.0Glide HospitalComment on above:Performed By: #### CBCDIF ####[place] [address] Lymphocytes1.55 10*3/uLNormal1.00-4.00[facility] HospitalComment on above: Performed By: #### CBCDIF ####[place] [address]Lymphocytes/100 .1 %NormalGlide HospitalComment on above:Performed By: #### CBCDIF ####[place] [address]MCH29.9 zRZgpnxb13.0-34.0[facility] Comment on above:Performed By: #### CBCDIF ####[place] [address]MCHC mass conc (RBC)35.0 g/dLNormal 30.5-36.0[facility] Health CenterComment on above:Performed By: #### CBCDIF ####[place] [address]MCV85.3 tECtuuxx22.0-100.0Glide HospitalComment on above:Performed By: #### CBCDIF ####[place] [address] Monocytes/100 leukocytes6.0 %NormalGlide HospitalComment on above:Performed By: #### CBCDIF ####[place] [address]Neutrophils/100 WBC Auto (Bld)74.5 %NormalGlide Hospital Comment on above:Performed By: #### CBCDIF ####[place] [phone] mean volume (PMV)10.8 fLNormal 9.0-12.7[facility] HospitalComment on above:Performed By: #### CBCDIF ####[phone] 10*3/uL Rxl637-731Ywphgnin HospitalComment on above:Performed By: #### CBCDIF ####[place] [phone] (Leukocytes)8.57 10*3/uLNormal3.70-11.00Glide HospitalComment on above: Performed By: #### CBCDIF ####[place] [phone] Blood Typeon 29-16-8615ZYQ/RH(D)PositiveNormalFawalter e. fernald developmental center HospitalComment on above:Performed By: #### CONABO ####[address] [phone] PHYSICALon 29-51-3192WGXIMFW PHYSICALHNO ID: [id number]: Ritchie Stone (Fel)Service: ColorectalAuthor Type: FellowType: HANDPFiled: 03/25/2017 2:56 PMNote Text:UPDATED PROCEDURAL HISTORY AND PHYSICAL EXAMINATIONSERVICE DATE: SERVICE TIME: 3pmPHYSICAL EXAM MUST BE COMPLETED ON [...] Ritchie Stone MD PATIENT NAME: Leida HouDATE: February : 2:56 PM PAGER: [phone] Hospital NURSING PROGon 49-40-0078LCHFLVH PROGHNO ID: [id number]: Stephanie (Rn) Janet, RNService: (none)Author Type: Registered NurseType: Nursing Progress NoteFiled: 03/25/2017 4:56 PMNote Text: Nursing Progress NotePatient Name: Leida HouMRN: [id number] Location: [place] [address]/HX-DECO-11 Daily Note:1540- family notified of start of mlabowjby1326 family updatedThis note was completed by: Stephanie Gonzales RNAdCare Hospital of WorcesterOPERATIVE NOon 61-54-2743ELPCKPYXU NOHNO ID: [id number]: Pelon BeebeeService: ColorectalAuthor Type: PhysicianType: Operative ReportFiled: 04/02/2017 3:06 PMNote Text:[facility] - Operative ReportLEIDA HOUDOB: 1965 AGE: 51 SEX: MMRN: [id number] ACCTNUM: [id number] SVC: INTM LOCATION: [id number] PHYSICIAN: Pelon Cortez M.D.DATE OF PROCEDURE: 03/25/2017PREOPERATIVE DIAGNOSIS: Severe diverticulitis and bowel obstruction.POSTOPERATIVE DIAGNOSIS: Severe diverticulitis and bowel obstruction.NAMEOF OPERATION:1. 60135, proctosigmoidectomy, anterior low pelvic anastomosis.2. 96015, small-bowel resection with primary anastomosis.3. Additionally, with a suture of small intestine syndrome, 731329.4. We did a takedown of the splenic flexure.5. Omental pedicle flap.6. Flexible sigmoidoscopy.SURGEON: Pelon Cortez M.D.CONTROLLER MECHANIC: NONEANESTHESIA:PROCEDURE: Mr. Hou was brought to the operating room, and he wasplaced in lithotomy position. Laparoscopy was performed through aninfraumbilicalballoon port and then converted to hand assist.Because [...] this point. At this point, we safely dividedthe mesorectumwith Yuni clamps and 0 Vicryl ties [...] blue PHILLIP staplersresecting 8 cm of small wyatt wel and a ajnp-uh-kwvw anastomosis wasperformed and closing with the TA stapler and suture. Next, an anvil was placed in the descending colon and had fully been mobilized, and it wasdropped into the pelvis. EEA was inserted into the anal canal into therectum, and an end-to-end anastomosis was done.The omental pediclewas dropped in the pelvis, and the flexible sigmoidoscopy was done topass as an air leak test, and there was no evidence of leak. A flatJP drain was laid in the pelvis. The fascia was closed, and tripleantibiotics were used on the skin, and 0-2 with andre. Skin wasclosed with andre. He was transferred to Recovery in good condition.Pelon Cortez M.D.SurgeryBC:[id number] sed:03/27/2017jhD: 03/26/2017 08:59:28T: 03/26/2017 18:45:31Job #: [id number] [facility] PATHOLOGYon 00-04-4821WVBEEJXI PATHOLOGYADDENDUM PRESENTSpecimen originated from [facility]n #: [id number] Physician: PELON CORTEZ MD FINAL DIAGNOSIS1. Portion of sigmoid colon, excision (A) - Segments of colon with chronicactive inflammation and inflamed granulation tissue.2. Appendix, excision (B) - Appendixwith diverticular disease, acuteserositis, and fibrous adhesions.3. Small bowel, segmental resection (C) - Patchy chromic active enteritiswith ulcer, pyloric gland metaplasia, fibroinflammatory adhesions, andperienteric abscess with fistula formation (see comment).4. Sigmoid colon, resection (D) - Diverticular disease with patchy chronicinflammation, hemosiderin-laden macrophages, acute serositis, and fibrousadhesions.- Benign lymph nodes.JEL/kr 03/30/20179911WQQKREX0. The presence of a fistula tract as well as transmural lymphoidaggregates in some areas without associated mucosal ulceration at leastraises consideration for Crohn's disease. That being said, no granulomasare identified. There isno evidence of dysplasia or malignancy. Given thepresence of an ulcer, an immunohistochemical stainfor cytomegalovirus(CMV) has been ordered, and the result will be reported in an addendum.Blake Fuentes M.D.(Electronic Signature) __SPECIMEN SUBMITTEDA: SIGMOID COLON B: APPENDIX C: SMALL BOWEL D: SIGMOID COLON ADDENDUM Date Ordered: 04/01/2017 Date Reported: 04/01/2017 An immunohistochemical stain for CMV performed on block C20 isnegative.Laboratory Developed Test (LDT) Disclaimer:Positive and negative controls stain appropriately. Performancecharacteristics of immunohistochemical, immunofluorescent and chromogenicin-situ hybridization tests have been determined by [facility] [place] ([facility]) vicky manner consistent with CLIA requirements. One or more of these tests havenot been cleared or approved by the FDA. [facility] is regulated under CLIA asqualified to perform high-complexity testing. These tests are used forclinical purposes. They should not be regarded as investigational or forresearch.JEViolet/klviolet 03/31/2017Addendum Pathologist: Blake Fuentes M.D.Electronic Signature CLINICAL DATASMALL BOWEL OBSTRUCTIONINTRAOPERATIVE CONSULT DIAGNOSISFSA1: Sigmoid colon - Fibrosis, organizing granulation tissue and benigncolonic type mucosa. (Dr. Gaston)Intraoperative diagnosis performed at [facility], [address] [place], [place] [address]CNMSL DESCRIPTIONA. Received fresh for frozen section diagnosis designated sigmoid colon are two irregularly-shaped segments of benitez to pink to white rubbery tissueaggregating to 2.8 x 1.5 x 0.6 cm. The specimen is totally submitted forfrozen and for permanent in one cassette. BF/rw 03/26/2017B. Received informalin designated appendix is an appendix measuring 3.8cm in length by 0.8 cm in diameter. The a ppendix is almost completelyencapsulated in a fibrofatty tissue with minimally covered serosa whichistan-pink and smooth. The line of resection is [...] of appendix seriallysectioned in the longitudinal plane.C. Receivedin formalin designated small bowel are multiple unorientedsegments of bowel. The first segment ofbowel measures 9 cm in length andranges in circumference from 3.5 to 8.5 cm. The one margin is inked blue,the opposing margin is inked orange. Located 4 cm from the blue margin, thelumen is narrowed.The mucosal surface is benitez-pink with normal mucosalridges. [...] masses or perforations are identified. Theserosal aspect ispink- purple with multiple adhesions. Representativesections are submitted as follows: C1 perpendicular margins first segmentof bowel, C2 area where the lumen is narrowed first segment of bowel, H9vvacijbou first segment of bowel, C4 cross section vessels first segment ofbowel, C5 perpendicular margin second segment of bowel, C6 area of boweladhered to itself, C7 second segment of bowel serosal adhesions, C8 crosssection vessels second segment of bowel, C9 perpendicular margin thirdsegment of bowel, C10 serosal adhesions third segment of bowel, C11- U25gbvdgsni thickened first segment of bowel,C19-C21 bowel adhered to itself.D. Received in formalin designated sigmoid colon is a segment of bowelmeasuring 18.5 cm in length and averaging 3 cm in circumference. Theproximal margin is inked blue, the distal margin is inked orange. Themucosal surface is benitez-pink with irregular mucosal ridges.Sectioningreveals multiple diverticula present. One of the diverticula [...] is grossly unremarkable. Representativesections are submitted as follows:D1 perpendicular margins, D2 possibleperforated diverticulum, D3-D4 diverticula, D5 serosal adhesions, D6- A3montn segment of bowel perpendicular margins, D8 lymph nodes, D9 -C63tflssvja abscessed area, D11-D13 additional sections.BF/dss 03/26/2017 Gross examination performed at [place] [address]Patient ID #: [id number] of Report: 03/31/2017Date of Procedure: 03/25/2017Date of Receipt: 03/25/2017Submitted by: PELON CORTEZ MDLocation: [id number] [place] [address].NormalGlide HospitalComment on above:Performed By: #### PATHS ####[place], [place] [address]Type and Screenon 03-25-2017 ABO/RH(D)PositiveNormalFawalter e. fernald developmental center HospitalComment on above:Performed By: #### TSCR ####[address] [phone] ScreenNegativeNormalGlide HospitalComment on above:Performed By: #### TSCR ####[address] [phone] on [id number] ID: [id number]: Pelon BeebeeService: (none)Author Type: PhysicianType: Progress NotesFiled: 03/18/2017 11:27 AMNote Text:Leida is a very pleasant 51-year-old gentleman today was contacted aboutlast week by Dr. Neo Recinos is a history of diverticulitis and recently developeda small bowelobstructionOn CT scans evident that he has an angulation of the small intestine andan area of inflamed diverticulitisJohn is an intermittent obstructive symptoms but is getting food downandnot acutely obstructed at this time despite concerning CT scanFor Leida were going to plan in doing a limited prep and a laparoscopicsigmoid colectomy and potential en bloc small bowel resectionBecause of the impressive CAT scan he does a roughly rare risk ofconversion open surgery and he understands thisWe'll perform the surgery within 1 week's time.NormalFostoria City HospitalCNOVon 00-11-9392RMUTXslfox Visit ([facility]) --------LEIDA HOU ([id number]) 1965 MDate Time Provider Department03/17/17 9:40 AM VEL CORTEZ [facility] During your visit today, we recorded [...] adjacent to thesigmoid colon.PMH: CAD s/p CABG, diverticulosis/diverticulitis, vasectomy, broken Rwrist s/pcastingFH: Ovarian Ca- maternal aunt. Pancreatic Ca- [...] file.Social HistorySubstance Use Topics- Smoking status: Former Smoker-Smokeless tobacco: Current User- Alcohol use Not on fileThe patient has the following:Problem List Noted Noted By Resolved Resolved By Small bowel obstruction 03/12/2017 Ana Luisa Yen No Overview Signed 03/12/2017 3:58 PM by Ana Luisa YEN Added automatically from request for surgery [id number] ATIONSCurrent Outpatient Prescriptions:carvedilol (COREG) 25 mg tablet Take [...] of GI symptoms or problems. No history ofesophageal varices,recent ascites, or ETOH greater than 2 drinks per day.: No history of UTI in past 6 weeks. No history of renal failure. Notcurrently on or requiring dialysis. No history of symptoms or problems.HELP DESK OPERATOR: Negative for abnormal vaginal bleeding, abnormal vaginal [...] deformities, edema, skin discoloration, clubbing or cyanosis.Good capillaryrefill.Neuro: Gait normal. Reflexes normal and symmetric. Sensation grossly intact.Abdomen: Normal abdominal exam, Negative CVA tendernessCEZAR MorelandATE: 03/17/17TIME: 10:20 Betzy Cortez MD 03/18/2017 11:27 AM Ruchi is a very pleasant 51-year-old gentleman today was contactedabout lastweek by . Neo Grisel is a history of diverticulitis and recently [...] within 1 week's time.Referring Provider: NEO SOLOMON [[id number]]Allergies As of Date: 03/17/2017 Noted Allergy ReactionCODEINE 03/17/2017 14 - Other: See Comments Comments: Pt. States causes nauseaDate Reviewed: 03/17/2017Reviewed by: Sera Mcdonough Ma - Fully AssessedReason for Visit: Consult [173]Primary Visit Diagnosis:SBO (small bowel obstruction) [K56.609] Other Visit Diagnoses:Diverticulosis of large intestine without hemorrhage [K57.30] Preoperative examination [Z01.818]Order(s):TYPE + SCREEN,30 DAY [SXAAMP04] Order #: [id number] FUTURE CONFIRM BLOOD TYPE [SQCONABO] Order #: [id number] FUTURE CBC + DIFF [SQCBCDIF] Order #: [id number] FUTURE COMP METABOLIC PANEL [SQCMP] Order #: [id number] FUTURE HANDP FOR SURGERY [F3587UPN] Order #: [id number] metroNIDAZOLE (FLAGYL) 500 mg tabletTake 1 tablet by mouth three times daily for 1 day. Take 1 tablet at 6pm, 7pm, and 11pm, the evening prior to surgery.Disp: 3 tabletRfl: 0 neomycin 500 mg tabletTake 2 tablets by mouth three times daily for 1 day. Take 2 tablet at 6pm, 7pm, and 11pm the evening prior tosurgery.Disp: 6 tabletRfl: 0Prescriptions as of 03/17/2017 Sig: CARVEDILOL 25 MG TABLET Take 25 mg by mouth twice daphne* LISINOPRIL 10 MG TABLET Take 10 mg by mouth once delma* ROSUVASTATIN 20 MG TABLETTake 20 mg by mouth once delma* OMEPRAZOLE 20 MG CAPSULE,ANDRES* Take 20 mg by mouth once delma* DOCUSATE SODIUM 100 MG CAPSULE Take 100 mg by mouth twice da* ASPIRIN 81 MG TABLET,DELAYED * Take 81 mg bymouth once delma* LANTUS SUBCUTANEOUS Inject 41 Units [...] to surgery. Cosign accepted by PELON CORTEZ MD[[id number]] on 03/18/2017 11:27 AM NEOMYCIN 500 MG TABLET 6 ta* 0 03/17/2017 03/18/2017 Route: ORAL Sig: Take 2 tablets by mouth three times daily for 1 day. Take 2 tablet at 6pm, 7pm, and 11pm the evening prior to surgery. Cosign accepted by PELON CORTEZ MD[[id number]] on 03/18/2017 11:27 AMEncounter Number: [id number] Status:Closed by PELON CORTEZ MD on 03/18/17[facility] GeneralESSon [id number] ID: [id number]: Lashell BaiRn) Cecelia Centenoice: (none)Author Type: Registered NurseType: Progress NotesFiled: 03/18/2017 11:27 AMNote Text:New Patient ConsultREASON FOR VISITLeida Hou gardenia 51 year old male who is scheduled for a consult at [facility] of [facility] Solomon for Consult. Myfinal recommendations will becommunicated back to the requesting [...] Signed 03/12/2017 3:58 PM by Ana Luisa Buchanan Added automatically from request for surgery [id number] Outpatient Prescriptions:carvedilol (COREG) 25 mg tablet Take [...] 81 mg EC tablet Take 81mg by mouthonce daily. Disp: Rfl:INSULIN GLARGINE,HUM.REC.ANLOG (LANTUS SUBCUTANEOUS) Inject 41 Unitssubcutaneously once daily. Disp: Rfl:No current facility-administered medications for this visit.CURRENT ALLER GIESALLERGIESAllergen Reactions- Codeine Other: See Comments Pt. States [...] past 6 weeks. No history of renal failure.Notcurrently on or requiring dialysis. No history of symptoms or problems.HELP DESK OPERATOR: Negative for abnormal vaginal bleeding, abnormal vaginal [...] BMI 26.31 kg/(m2).General Appearance: Well appearing, alert, inno acute distress,well-hydrated, well nourished.Skin: Skin color, texture, turgor normal, no suspicious rashes or lesionsHead: Normocephalic, no masses, lesions, tenderness or abnormalitiesOropharynx: Lips, mucosa, and tongue normal, teeth and gums normal,oropharynx normalNeck: Supple, no adenopathy; thyroid symmetric, normal size, no bruitsLungs: Lungs clear to auscultation. No wheezing, rhonchi, ralesHeart: RRR without murmur, gallop, or rubs. No ectopyExtremities: No deformities, edema, skindiscoloration, clubbing orcyanosis. Good capillary refill.Neuro: Gait normal. Reflexes normal and symmetric. Sensation grosslyintact.Abdomen: Normal abdominal exam, Negative CVA tendernessIsaccdleCEZAR LandryATE: 03/17/17TIME: 10:20 AMNormalClePremier Health [facility] Center PROGRESSHNO ID: [id number]: Ritchie Arnold (Fel): (none)Author Type: FellowType: Progress [...] to the sigmoid colon.PMH: CAD s/p CABG, diverticulosis/diverticulitis, vasectomy, broken Rwrist s/p castingFH: Ovarian Ca- maternal aunt. Pancreatic Ca- Paternal uncleSH: chewing tobacco- plans to quit, 6 pack beer/3-4 days a weekNormalCKettering Health SpringfieldNURSING PROGon [id number] PRONO ID: [id number]: Annemarie (Rn) Ana Turk: (none)Author Type: Registered NurseType: Nursing Progress NoteFiled: 03/13/2017 11:47 AMNote Text:03/13 11:[address] Dr[address] cortez's office and spoke with Ana Luisa and pt. is to be admitted the day before surgery and will have all testingdone on admit. She stated No PACC needed. Joao,RNNormalSolomon Carter Fuller Mental Health CenterHOon 22-62-6566YRSCHczkvzt:Kelly Hou: Height:6' 0 (1.829 m)Weight:194 lb (87.998 kg)Outpatient Medications as of 03/25/17:carvedilol (COREG) 25 mg tabletlisinopril (ZESTRIL, PRINIVIL) 10 mg tabletrosuvastatin (CRESTOR) 20 mg tabletomeprazole (PRILOSEC) 20 mg capsuleINSULIN GLARGINE,HUM.REC.ANLOG (LANTUS SUBCUTANEOUS)docusate sodium (STOOL SOFTENER) 100 mg capsuleaspirin, enteric coated (ASPIRIN, ENTERIC COATED)81 mg EC tabletAdmission/Clinic Administered Medications as of 03/25/17:0.9% NaCl 2-10 mLheparin 5,000 Units injectioncefTRIAXone 2 g in sterile water 20 mL (ROCEPHIN)metroNIDAZOLE 500 mg PREMIX piggyback (FLAGYL)Problem List:Small bowel obstruction [K56.609]Allergies:CodeineDate Verified: 03/25/17Lab ValuesLab Value Units Date High LowHEMA* 41.7 % 03/25/2017 51.0 39.0Progress Notes ([facility]):Ritchie Stone MD 03/18/2017 11:27 AM SignedCC:Referred for colonic stricture 2/2 diverticulitisHPI:51M with 2 month history of bloating and right sided abdominal pain. Has ahistory of CABG [id number] and developed a presumed diverticular abscess requiringIR drainage x2- no abdominal surgery.Int erm- did well for approx 5 years. 2 months of pain with visible peristalsisin right abdomen. Has continued to eat a regular diet (avoiding nuts/popcorn),but notes early satiety.Denies blood in stool.Denies pneumaturia.Denies any unwanted weight loss.Last colonoscopy: 10/31/2015 severe sigmoid diverticulosis, polypectomy inascending colonCT 02/11/2017: fluid filled mid small bowel, distended up to 4.5cm with abruptnarrowing within the mid ileum at the level of the umbilicus. Wall thickeningand inflammatory changes of sigmoid colon. Diverticulosis of the ascendingcolon. Wall thickening of the urinary bladder with up to 13mm adjacent to thesigmoid colon.PMH: CAD s/p CABG, diverticulosis/diverticulitis, vasectomy, broken R wrist s/pcastingFH: Ovarian Ca- [...] User- Alcohol use Not on fileThe patient hasthe following:Problem List Noted Noted By Resolved Resolved By Small bowel obstruction 03/12/2017 Ana Luisa Yen No Overview Signed 03/12/2017 3:58 PM by Ana Luisa Matthews SEC Added automatically from request for surgery [id number] Outpatient Prescriptions:carvedilol (COREG) 25 mg tablet Take [...] QuadrantDescription: PressureDuration Amount of Time: 3Duration Units: Mo nthsFrequency: IntermittentIntervention: DeclinedGeneral: No weight loss, malaise or [...] requiring dialysis. No history of symptoms or problems.HELP DESK OPERATOR: Negative for abnormal vaginal bleeding, abnormalvaginal discharge. : DeniesEndocrine: No history of diabetes. [...] wt in 6 months. No history ofoncological symptomsor problems.Psych: No history of psychiatric symptoms or problems.Musculoskeletal: Negative for joint pain or swelling, back pain or muscle pain.Skin: Negative for lesions, rash and itching.Anemia: No PHYSICAL EXAMINATIONBP 154/83 Pulse 78 Temp 97.6 Ht 6' 0 (1.83m) Wt 194 lb (88.0kg) BwF8389% BMI 26.31 kg/(m2).General Appearance: Well appearing, alert, [...] No deformities, edema, skin discoloration, clubbing or cya nosis.Good capillary refill.Neuro: Gait normal. Reflexes normal and symmetric. Sensation grossly intact.Abdomen: Normal abdominal exam, Negative CVA tendernessCEZAR MorelandATE: 03/17/17TIME:10:20 Betzy Cortez MD 03/18/2017 11:27 AM Ruchi [...] thisWe'll perform the surgery within 1 week's time.NormalSolomon Carter [facility] Vital Signs Date TimeVital SignValuePerforming YeqfzsqdsHbaagair54-48-7512 09:08-0400Body qcohtr291.9 cmScarla Summers NP Work Phone: [phone] CenterKvsrwqqddi63-83-7063 09:08-0400Body mass index (BMI) [Ratio]27.67 kg/s1XeygdsZenia Summers NP Work Phone: [phone] CenterDxgoauxrcu76-30-0592 09:08-0400Body aulxup84.53 kgZenia Summers NUTRITION COORDINATOR Work Phone: [phone] CenterLedrokuuaf05-67-2233 09:08-0400Diastolic blood drvhmaxt59 mm[Hg]Zenia Summers NUTRITION COORDINATOR Work Phone: [phone] CenterSpcqepwdqt16-88-8283 09:08-0400Heart rate85 /min Zenia Summers NP Work Phone: [phone]. Louis VA Medical CenterDcprlfamue83-91-9516 09:08-0400Respiratory rate16 /minSherri [place] NUTRITION COORDINATOR Work Phone: NOSt. Louis [facility] Medical CenterVxsqjocvkw23-78-4271 09:08-8288OkK9% (BldA) [Mass fraction]98 %Zenia Summers NUTRITION COORDINATOR Work Phone: NOSt. Louis [facility] Medical CenterOghmffklmo12-72-8043 09:08-0400Systolic blood algdvylo789 mm[Hg]Zenia Summers NUTRITION COORDINATOR Work Phone: NOSt. Louis [facility] Medical CenterOawoapgegu24-63-0842 14:09-0400Body yhhboh341.9 cmRedwar Phoenix MD Work Phone: NOSt. Louis [facility] Medical CenterVewhwqptoj55-10-1423 14:09-0400Body mass index (BMI) [Ratio]26.99 kg/k9SntqeNohemi Phoenix MD Work Phone: [phone]. Louis VA Medical CenterSyaijnzrct42-90-6619 14:09-0400Body cjlfyt92.27 kgNohemi Phoenix MD Work Phone: [phone]. Louis VA Medical CenterMqggwcnyih35-57-9841 14:09-0400Diastolic blood tuvcfgov03 mm[Hg]Nohemi Phoenix MD Work Phone: NOSt. [facility] Medical CenterJbrtvvrwuf66-50-1069 14:09-0400Heart rate89 /min Nohemi Phoenix MD Work Phone: [phone]. Louis VA Medical CenterCenoequbjh96-74-6841 14:09-0400Respiratory rate17 /minNohemi Phoenix MD Work Phone: NOSt. Louis [facility] Medical CenterHefsspbtab11-15-6597 14:09-7416SzN7% (BldA) [Mass fraction]98 %Nohemi Phoenix MD Work Phone: NOSt. Louis [facility] Medical CenterVkscvggngb90-68-1236 14:09-0400Systolic blood bzeillgz469 mm[Hg]Nohemi Phoenix MD Work Phone: NOSt. Louis [facility] Medical CenterZwekvuanlq93-92-9791 15:55-0500Body aguzth750.9 cmChevy Herrera NUTRITION COORDINATOR Work Phone: NOSt. Louis [facility] Medical CenterAkbrzlezwl47-30-1387 15:55-0500Body mass index (BMI) [Ratio]26.72 kg/m2Chevy Herrera NP Work Phone: [facility] CenterVrxypbbaca87-79-0649 15:55-0500Body mucqui84.36 kgChevy Herrera NUTRITION COORDINATOR Work Phone: [facility] CenterViyxpssxrw98-99-3069 15:55-0500Diastolic blood gtzhceuo69 mm[Hg]Chevy Herrera NUTRITION COORDINATOR Work Phone: [facility] CenterHgkggbmtto82-48-9880 15:55-0500Heart rate63 /min Chevy Herrera NUTRITION COORDINATOR Work Phone: [facility] CenterOjbzrlavhi08-25-3933 15:55-0500Respiratory rate17 /minChevy Herrear NUTRITION COORDINATOR Work Phone: [facility] CenterPltcgpjisr96-99-9883 15:55-3428MaV3% (BldA) [Mass fraction]97 %Chevy Herrera NUTRITION COORDINATOR Work Phone: [facility] CenterFuabbzucki84-20-5193 15:55-0500Systolic blood qzwnwiws089 mm[Hg]Chevy Herrera NUTRITION COORDINATOR Work Phone: [facility] CenterPrgfgjmcas75-25-7990 10:51-0500Body zvpjux096.9 cmMarc Dolce DPM FACFAS Work Phone: [phone])[address] [place], [place] 5864001-10-2025 10:51-0500Body mass index (BMI) [Ratio]27.26 kg/m2Marc Dolce DPM FACFAS Work Phone: [phone])[address] [place], [place] [address] CenterTcagvesjht09-70-4645 10:51-0500Body marpcs16.17 kgMarc Dolce DPM FACFAS Work Phone: [phone])[address] [place], [place] 5864001-10-2025 10:51-0500Diastolic blood mm[Hg]Yonatan Mitchellce DPM FACFAS Work Phone: [phone] [place], [place] 5864001-10-2025 10:51-0500Heart rate77 /min Yonatan Dolce DPM FACFAS Work Phone: [phone])[address] [place], [place] 5864001-10-2025 10:51-0500Systolic blood ohyrwtdh600 mm[Hg]Yonatan Dolce DPM FACFAS Work Phone: 1(952)[facility] [place], [place] [address]Cmrwdexpgc92-28-1125 10:17-0500Body jegxav273.9 cmMarc Dolce DPM FACFAS Work Phone: [phone])[address] [place] [address]-27-2024 10:17-0500Body mass index (BMI) [Ratio]27.26 kg/m2Marc Dolce DPM FACFAS Work Phone: [phone])[address] [place] [address]-27-2024 10:17-0500Body uuzrfo52.17 kgMarc Dolce DPM FACFAS Work Phone: [phone])[address] [place] [address]-27-2024 10:17-0500Diastolic blood lyiurqko06 mm[Hg]Yonatan Dolce DPM FACFAS Work Phone: [phone])[address] [place] [address]-27-2024 10:17-0500Heart rate72 /min Yonatan Dolce DPM FACFAS Work Phone: [phone])[address] [place] [address]-27-2024 10:17-0500Systolic blood ssndavbr957 mm[Hg]Yonatan Dolce DPM FACFAS Work Phone: 1(401)[address] [place] [address]-20-2024 10:48-0500Body uayloi691.9 cmMarc Dolce DPM FACFAS Work Phone: 1(904)[address] [place], [place] 5864012-20-2024 10:48-0500Body mass index (BMI) [Ratio]27.26 kg/m2Marc Dolce DPM FACFAS Work Phone: 1419)[address] [place] [address]-20-2024 10:48-0500Body vtnboh43.17 kgMarc Dolce DPM FACFAS Work Phone: 1419)[address] [place] [address]-20-2024 10:48-0500Diastolic blood xsuzjjya61 mm[Hg]Yonatan Dolce DPM FACFAS Work Phone: 1419)[address] [place] [address]-20-2024 10:48-0500Heart rate73 /min Yonatan Dolce DPM FACFAS Work Phone: 1(416)[address] [place] [address]-20-2024 10:48-0500Systolic blood oefkutfq047 mm[Hg]Yonatan Dolce DPM FACFAS Work Phone: 1(464)[address] [place] [address]-17-2024 14:43-0500Body thvizj441.9 cmKareem Dolce DPM FACFAS Work Phone: 1(111)[address] [place] [address]-17-2024 14:43-0500Body mass index (BMI) [Ratio]27.67 kg/j5Rrokqw Dolce DPM FACFAS Work Phone: 1(204)[address] [place] [address]-17-2024 14:43-0500Body ztvaxf99.53 kgKareem Dolce DPM FACFAS Work Phone: [phone])[address] [place] [address]-17-2024 14:43-0500Diastolic blood mm[Hg]Casi Dolce DPM FACFAS Work Phone: 1(514)[address] [place] [address]-17-2024 14:43-0500Heart rate74 /min Casi Dolce DPM FACFAS Work Phone: 1(163)[address] [place] [address]-17-2024 14:43-0500Systolic blood xvyanpai898 mm[Hg]Casi Dolce DPM FACFAS Work Phone: 1(295)[address] [place], [place] 5864012-09-2024 08:52-0500Body fapgls069.9 cmMarc Dolce DPM FACFAS Work Phone: 1(511)[address] [place] [address]-09-2024 08:52-0500Body mass index (BMI) [Ratio]27.67 kg/m2Marc Dolce DPM FACFAS Work Phone: 1(898)[address] [place], [place] 5864012-09-2024 08:52-0500Body fotcjp10.53 kgMarc Dolce DPM FACFAS Work Phone: 1(970)[address] [place] [address]-09-2024 08:52-0500Diastolic blood fkyggmst69 mm[Hg]Yonatan Dolce DPM FACFAS Work Phone: 1(035)[address] [place] [address]-09-2024 08:52-0500Heart rate72 /min Yonatan Dolce DPM FACFAS Work Phone: 1(963)[address] [place] [address]-09-2024 08:52-0500Systolic blood phgzeccz431 mm[Hg]Yonatan Dolce DPM FACFAS Work Phone: 1(349)[address] [place], [place] 5864012-02-2024 10:23-0500Body .9 cmMarc Dolce DPM FACFAS Work Phone: 1419)[address] [place], [place] 5864012-02-2024 10:23-0500Body mass index (BMI) [Ratio]27.67 kg/m2Marc Dolce DPM FACFAS Work Phone: 1419)[address] [place], [place] 5864012-02-2024 10:23-0500Body budpcp20.53 kgMarc Dolce DPM FACFAS Work Phone: 1419)[address] [place], [place] 5864012-02-2024 10:23-0500Diastolic blood cojpbwzs66 mm[Hg]Yonatan Dolce DPM FACFAS Work Phone: 1419)[address] [place], [place] 5864012-02-2024 10:23-0500Heart rate70 /min Yonatan Dolce DPM FACFAS Work Phone: 1(373)[address] [place], [place] 5864012-02-2024 10:23-0500Systolic blood lhppdmaq122 mm[Hg]Yonatan Dolce DPM FACFAS Work Phone: 1(000)[address] [place], [place] 5864011-20-2024 12:14-0500Body .9 cmMarc Dolce DPM FACFAS Work Phone: 1(344)[address] [place], [place] 5864011-20-2024 12:14-0500Body mass index (BMI) [Ratio]27.67 kg/m2Marc Dolce DPM FACFAS Work Phone: 1(900)[address] [place], [place] 5864011-20-2024 12:14-0500Body .53 kgMarc Dolce DPM FACFAS Work Phone: 1419)[address] [place] [address]-20-2024 12:14-0500Diastolic blood qqfklukh86 mm[Hg]Yonatan Dolce DPM FACFAS Work Phone: 1419)[address] [place] [address]-20-2024 12:14-0500Heart rate72 /min Yonatan Dolce DPM FACFAS Work Phone: 1(012)[address] [place] [address]-20-2024 12:14-0500Systolic blood qxkfzliu486 mm[Hg]Yonatan Dolce DPM FACFAS Work Phone: [phone])612[place] [address]-15-2024 10:01-0500Body unlxik244.9 cmMarcarolina Stephenarlet DPM FACFAS Work Phone: 1(517)[address] [place] [address]-15-2024 10:01-0500Body mass index (BMI) [Ratio]27.67 kg/m2Marc Dolce DPM FACFAS Work Phone: 1(828)[address] [place], [place] 5864011-15-2024 10:01-0500Body hflzad10.53 kgMarc Dolce DPM FACFAS Work Phone: 1(056)[address] [place] [address]-15-2024 10:01-0500Diastolic blood waxdvakm07 mm[Hg]Yonatan Pavithra DPM FACFAS Work Phone: 1(601)[address] [place] [address]-15-2024 10:01-0500Heart rate73 /min Yonatan Pavithra DPM FACFAS Work Phone: 1(974)[address] [place] [address]-15-2024 10:01-0500Systolic blood qukjzidq809 mm[Hg]Yonatan Pavithra DPM FACFAS Work Phone: 1(676)[address] [place] [address]-14-2024 11:30-0500Diastolic blood igmfxnlm05 mm[Hg]Nohemi Phoenix MD Work Phone: [facility]11-14-2024 11:30-0500 Heart rate81 /minNohemi Phoenix MD Work Phone: [facility]11-14-2024 11:30-0500 Respiratory rate20 /minNohemi Phoenix MD Work Phone: [facility]11-14-2024 11:30-0500 SaO2% (BldA) [Mass fraction]96 %Nohemi Phoenix MD Work Phone: [facility]11-14-2024 11:30-0500 Systolic blood sabjavtv253 mm[Hg]Nohemi Phoenix MD Work Phone: 1(394)[address] [place], [place] 3355811-14-2024 09:08-0500 Body bwidpnexskt12.4 [degF]Nohemi Phoenix MD Work Phone: [facility]11-14-2024 08:40-0500 Inhaled oxygen flow rate2 L/minNohemi Phoenix MD Work Phone: [facility]11-14-2024 06:44-0500 Body .88 cmRedwar Phoenix MD Work Phone: [facility]11-14-2024 06:44-0500 Body qqxpto52.45 kgNohemi Phoenix MD Work Phone: [facility]11-13-2024 11:51-0500 Body osydmn314.88 cmC[facility]11-13-2024 11:51-0500Body mass index (BMI) [Ratio]26.4 kg/h4KbzqvuiqiCleveland Clinic [facility]11-13-2024 11:51-0500Body hjligmtaail38.9 [degF][facility]11-13-2024 11:51-0500Body hqyrxl19.45 kgC[facility]11-13-2024 11:51-0500Diastolic blood piutrexd08 mm[Hg][facility] 01-06-2024 11:51-0500Heart rate72 /[facility] 01-06-2024 11:51-0500Respiratory rate16 /[facility] 01-06-2024 11:51-6973NtM9% (BldA) [Mass fraction]97 %[facility]11-13-2024 11:51-0500Systolic blood wzkucoss728 mm[Hg][facility]11-11-2024 11:40-0500Body hgwhec132.9 cmMarc Dolce DPM FACFAS Work Phone: [facility] CenterZqypctclvm19-42-4299 11:40-0500Body mass index (BMI) [Ratio]27.67 kg/m2Marc Dolce DPM FACFAS Work Phone: [facility]ysterSt[facility] CenterBnndezrcwd29-09-9716 11:40-0500Body aibmcp46.53 kgMarc Dolce DPM FACFAS Work Phone: 1(367)[address] [place] [address]-11-2024 11:40-0500Diastolic blood mm[Hg]Yonatan Mitchellce DPM FACFAS Work Phone: 1(661)[address] [place], [place] 5864011-11-2024 11:40-0500Heart rate71 /min Yonatan Dolce DPM FACFAS Work Phone: 1419)[address] [place], [place] 5864011-11-2024 11:40-0500Systolic blood nlpdbupt156 mm[Hg]Yonatan Mitchellce DPM FACFAS Work Phone: 1419)[address] [place] [address]-04-2024 10:36-0500Body .9 cmMarc Dolce DPM FACFAS Work Phone: 1(311)[address] [place], [place] 5864011-04-2024 10:36-0500Body mass index (BMI) [Ratio]27.67 kg/m2Marc Dolce DPM FACFAS Work Phone: 1(244)[address] [place], [place] 5864011-04-2024 10:36-0500Body zmrfot35.53 kgMarc Dolce DPM FACFAS Work Phone: 1(928)[address] [place] [address]-04-2024 10:36-0500Diastolic blood pscrndeo24 mm[Hg]Yonatan Rosado DPM FACFAS Work Phone: 1(919)[address] [place], [place] 5864011-04-2024 10:36-0500Heart rate76 /min Yonatan Dolce DPM FACFAS Work Phone: 1(280)[address] [place] [address]-04-2024 10:36-0500Systolic blood lramyust780 mm[Hg]Yonatan Rosado DPM FACFAS Work Phone: 1(756)[address] [place], [place] 5864010-30-2024 09:27-0400Body pjuzoj499.9 cmMarc Dolce DPM FACFAS Work Phone: 1(539)[address] [place], [place] 5864010-30-2024 09:27-0400Body mass index (BMI) [Ratio]27.67 kg/m2Marc Dolce DPM FACFAS Work Phone: 1(347)[address] [place], [place] 5864010-30-2024 09:27-0400Body vpalei39.53 kgMarc Dolce DPM FACFAS Work Phone: 1(419)[address] [place], [place] 5864010-30-2024 09:27-0400Diastolic blood mm[Hg]Yonatan Dolce DPM FACFAS Work Phone: 1(408)[address] [place], [place] 5864010-30-2024 09:27-0400Heart rate84 /min Yonatan Dolce DPM FACFAS Work Phone: 1(166)[address] [place], [place] 5864010-30-2024 09:27-0400Systolic blood rptkilkv909 mm[Hg]Yonatan Mitchellce DPM FACFAS Work Phone: 1(419)[address] [place], [place] 5864010-28-2024 10:07-0400Body cgjypv026.9 cmMarc Dolce DPM FACFAS Work Phone: 1(093)[address] [place] [address]-28-2024 10:07-0400Body mass index (BMI) [Ratio]27.67 kg/m2Marc Dolce DPM FACFAS Work Phone: 1(618)[address] [place], [place] 5864010-28-2024 10:07-0400Body .53 kgMarc Dolce DPM FACFAS Work Phone: 1(594)[address] [place], [place] 5864010-28-2024 10:07-0400Diastolic blood mhngulqg61 mm[Hg]Yonatan Rosado DPM FACFAS Work Phone: 1(247)[address] [place], [place] 5864010-28-2024 10:07-0400Heart rate86 /min Yonatan Rosado DPM FACFAS Work Phone: 1(338)[address] [place], [place] 5864010-28-2024 10:07-0400Systolic blood mm[Hg]Yonatan Rosado DPM FACFAS Work Phone: 1(652)[facility] [place], [place] [address]Tlnpdpaoci91-42-5996 11:00-0400Body aefeov068.9 Amber Summers NUTRITION COORDINATOR Work Phone: [facility] CenterIspbaemwzs05-37-2963 11:00-0400Body mass index (BMI) [Ratio]27.67 kg/e7YrggyjZenia Summers NUTRITION COORDINATOR Work Phone: NOSt. [facility] CenterJefadgckid61-22-0561 11:00-0400Body mhocnj21.53 kgShshannan Summers NUTRITION COORDINATOR Work Phone: NOSt. [facility] CenterHyvuzgouhl20-51-3734 11:00-0400Diastolic blood azcckfrf28 mm[Hg]Zenia Melina NUTRITION COORDINATOR Work Phone: NOSt. [facility] CenterVzppthlgka46-89-2893 11:00-0400Heart rate78 /min Zenia Melina NUTRITION COORDINATOR Work Phone: NOSt. [facility] CenterJoykyvqdxo72-33-4684 11:00-3191JiN4% (BldA) [Mass fraction]97 %Zenia [place] NUTRITION COORDINATOR Work Phone: NOSt. [facility] Medical CenterMqgagtsqnj30-29-9614 11:00-0400Systolic blood rdxsopiq314 mm[Hg]Zenia Summers NUTRITION COORDINATOR Work Phone: [facility] Encounters Encounter DateEncounter TypeCare ProviderFacilityStart: 12-27-2024 End: 06-24-3638xidemdrkcpYGVQ [facility]: 11-23-2024 End: 46-41-3183Sttjlkwsp encounterMarshserg Dykes [facility] Start: 11-09-2024 End: 38-33-1272Lyfclk flowsYaritza TAYLOR Work Phone: [facility]edicsStart: 11-09-2024 End: 37-09-6937Csosmn flowsYaritza TAYLOR Work Phone: [facility]opaedicsStart: 11-09-2024 End: 78-09-9663Pygxwb outpatient new 30 minutesMattnellie TAYLOR Work Phone: [facility] [place] OrthopaedicsComment on above:Acute thoracic back pain, unspecified back pain laterality (Primary Dx); Muscle spasm of backStart: 11-09-2024 End: 57-96-7795yyrxrwrunaNICFGBA J MEYERNot AvailableStart: 20-30-1669jzqncqersc AMRIT GRUBBUniHenry County Hospitaltart: 10-31-2024 End: 26-21-1633Drpgkcobl Result EncounterNohemi Phoenix MD Work Phone: NOX[facility] External Department UnsolicitedStart: 10-31-2024 End: 64-76-9434Vsilhleie Result EncounterNohemi Phoenix MD Work Phone: NOD[facility] External Department UnsolicitedStart: 10-05-2024 End: 44-27-2734Zwhgni Monica Summers NUTRITION COORDINATOR Work Phone: [facility] MedinceStart: 10-05-2024 End: 10-65-6072Xyjhsl Monica Summers NUTRITION COORDINATOR Work Phone: [facility] MedinceStart: 10-05-2024 End: 29-79-7347qpsixrmwurUDPPOO M SHIVELYNot AvailableStart: 10-05-2024 End: 98-28-4852Spqirr outpatient visit 25 minutesShshannan Summers NUTRITION COORDINATOR Work Phone: [facility] Broussard MedinceComment on above:Muscle spasm of back (Primary Dx); Intercostal painStart: 82-19-6130qwjfgfjagoRTAEG GRUBBUniHenry County Hospitaltart: 42-17-3032kdomtygkjsIGVXSt. Francis Hospitaltart: 07-05-2024 End: 84-38-9080kqovcunvksOTNESt. Francis Hospitaltart: 89-84-9856spqtnzvmxfRNOMOhio State East Hospitaltart: 01-78-0429oharmzoqjqNAGOSt. Francis Hospitaltart: 05-16-2024 End: 75-19-4227Wygawn outpatient visit 25 minutesNohemi Phoenix MD Work Phone: [facility] CI FMComment on above:Type 2 diabetes mellitus with diabetic autonomic neuropathy, with long-term current use of insulin ( CMS/HCC) (Primary Dx); Type 2 diabetes mellitus with foot ulcer (CODE) (CMS/HCC); Primary insomniaStart: 05-16-2024 End: 41-77-1686rsefaeiayhNLHTX M ALDANot AvailableStart: 25-68-9202kywmvwrxxm PAUL [facility]: 48-80-0560Oyxwdggke for preprocedural cardiovascular examinationSt. Francis Hospitaltart: 03-30-2024 End: 50-22-7069Mcrdkg outpatient visit 25 minutesChevy Herrera NUTRITION COORDINATOR Work Phone: [facility] CI FMComment on above:Acute bronchitis, unspecified organism (Primary Dx); Acute cough; Hypertensive heart disease with heart failure (CMS/HCC); Gangrene, not elsewhere classified (CMS/HCC); Type 2 diabetes mellitus with foot ulcer (CODE) (CMS/HCC); Non-pressure chronic ulcer 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 (CMS/HCC); Ventricular tachycardia, unspecified (CMS/HCC); Unspecified systolic (congestive) heart failure (CMS/HCC); Heart failure, unspecified (CMS/HCC); Chronic systolic (congestive) heart failure (CMS/HCC)Start: 03-30-2024 End: 89-40-8015vaobnvudleGEZNilsa Collins AvailableStart: 03-30-2024 End: 88-08-5927Iuurnr Niranjan Herrera NUTRITION COORDINATOR Work Phone: [facility] CI FMStart: 03-30-2024 End: 66-56-0662Pdehgbjordan Herrera NUTRITION COORDINATOR Work Phone: [facility] CI FMStart: 40-78-8459ztdniyobklZRKUMemorial Hospitaltart: 57-16-5389kkgyotxqwdZDSHMemorial Hospitaltart: 03-04-2024 End: 00-25-7300Femvbg flowsheetMarc D Dolce DPM FACFAS Work Phone: [facility] ASC PODStart: 03-04-2024 End: 19-96-5762Rmqhxj flowsheetMarc D Dolce DPM FACFAS Work Phone: [facility] ASC PODStart: 03-04-2024 End: 14-95-5861Kvvwwf follow up visit related to original pxMarc D Dolce DPM FACFAS Work Phone: [facility] NMA PODComment on above:Type II diabetes mellitus with neurological manifestations (CMS/HCC) (Primary Dx); Amputation of left great toe (CMS/HCC)Start: 03-04-2024 End: 19-34-4899xzcmisogdpKPWU D DOLCENot AvailableStart: 02-19-2024 End: 00-28-6592Cxmbbm flowsheetMarc D Dolce DPM FACFAS Work Phone: [phone] ASC PODStart: 02-19-2024 End: 98-10-0186Uspmor flowsheetMarc D Dolce DPM FACFAS Work Phone: [facility] ASC PODStart: 02-19-2024 End: 27-66-8124Xcipeas encounter procedureMarc D Dolce DPM FACFAS Work Phone: [facility] NMA PODComment on above:Type II diabetes mellitus with neurological manifestations (CMS/HCC) (Primary Dx); Amputation of left great toe (CMS/HCC); Gastrocnemius equinus of left lower extremity; Gastrocnemius equinus of right lower extremityStart: 02-19-2024 End: 42-49-6470pvbgdjpyczZAWM D DOLCENot AvailableStart: 02-12-2024 End: 30-73-8061Vmrjcm flowsheetMarc D Dolce DPM FACFAS Work Phone: [facility] ASC PODStart: 02-12-2024 End: 36-16-7380Mjngqs flowsheetMarc D Dolce DPM FACFAS Work Phone: [phone] PODStart: 02-12-2024 End: 21-93-9542Sjkcyg follow up visit related to original pxMarc D Dolce DPM FACFAS Work Phone: [facility] PODComment on above:PAD (peripheral artery disease) (CMS/HCC) (Primary Dx); Gangrene (CMS/HCC)Start: 02-12-2024 End: 30-97-1602pdtlywcxemSKHR D DOLCENot AvailableStart: 76-70-6978rvbnarxqbaUniversity Hospitals Geauga Medical Centertart: 02-09-2024 End: 46-59-2338Qplkvad encounter procedureKareem R Dolce DPM FACFAS Work Phone: [facility] PODComment on above:PAD (peripheral artery disease) (CMS/HCC) (Primary Dx); Gangrene (CMS/HCC); Type II diabetes mellitus with neurological manifestations (CMS/HCC); Chronic ulcer of great toe of left foot with fat layer exposed (CMS/HCC)Start: 02-09-2024 End: 52-92-0105Jhowcv flowsheetMarc D Dolce DPM FACFAS Work Phone: [facility] PODStart: 02-09-2024 End: 65-68-8263Mfvbjt flowsheetMarc D Dolce DPM FACFAS Work Phone: [facility] PODStart: 02-09-2024 End: 91-09-2750tdkrekmcvzETWEDQ R DOLCENot AvailableStart: 02-09-2024 End: 46-40-0138Plqxri outpatient visit 15 minutesMarc D Dolce DPM FACFAS Work Phone: [facility] PODComment on above:Type II diabetes mellitus with neurological manifestations (CMS/HCC) (Primary Dx); PAD (peripheral artery disease) (CMS/HCC); Gangrene (CMS/HCC); Acute osteomyelitis of ankle and foot, left (CMS/HCC)Start: 02-09-2024 End: 71-27-5762bvoydemoiuHITY D DOLCENot AvailableStart: 02-33-9826auyeecjrcy [facility] Limatart: 02-01-2024 End: 75-44-4243Eybtdj flowsheetMarc D Dolce DPM FACFAS Work Phone: [facility] PODStart: 02-01-2024 End: 16-96-0529Fsqhjz flowsheetMarc D Dolce DPM FACFAS Work Phone: [facility] PODStart: 02-01-2024 End: 18-07-5124jmpshdtsneIVAQ D DOLCENot AvailableStart: 02-01-2024 End: 77-47-6244Qyrjzb outpatient visit 15 minutesMarc D Dolce DPM FACFAS Work Phone: noms NMA PODComment on above:Type II diabetes mellitus with neurological manifestations (CMS/HCC) (Primary Dx); PAD (peripheral artery disease) (CMS/HCC); Gangrene (CMS/HCC); Acute osteomyelitis of ankle and foot, left (CMS/HCC)Start: 03-27-3269cqjuttztuzUniversity Hospitals Geauga Medical Centertart: 01-25-2024 End: 74-48-5536Fmivnx flowsheetMarc D Dolce DPM FACFAS Work Phone: noms ASC PODStart: 01-25-2024 End: 14-32-2803Jhqbri flowsheetMarc D Dolce DPM FACFAS Work Phone: noms ASC PODStart: 01-25-2024 End: 57-03-3100Ajbksb outpatient visit 15 minutesMarc D Dolce DPM FACFAS Work Phone: noms NMA PODComment on above:Type II diabetes mellitus with neurological manifestations (CMS/HCC) (Primary Dx); PAD (peripheral artery disease) (CMS/HCC); Gangrene (CMS/HCC); 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, left (CMS/HCC)Start: 01-25-2024 End: 98-79-2229ziggviobgsWVJZ D DOLCENot AvailableStart: 01-19-2024 End: 83-08-7738gxpgpsepqzXfnftnk T LangenbergFacility:[facility] Centertart: 01-18-2024 End: 28-40-5152Pgr Drop offMarc D [facility]raU[facility] Start: 01-18-2024 End: 79-05-8550Olqybunsn encounterMarc D Dolce DPM FACFAS Work Phone: noms PODStart: 01-18-2024 End: 00-82-1842znxveweyocDxzi D DolceFacility:[facility] CENTERtart: 01-13-2024 End: 11-44-8829Wjbsqc flowsheetMarc D Dolce DPM FACFAS Work Phone: noms ASC PODStart: 01-13-2024 End: 10-43-5243Tlncyf flowsheetMarc D Dolce DPM FACFAS Work Phone: NOMS ASC PODStart: 01-13-2024 End: 90-58-4276Ggdafmznp encounterMarc D Dolce DPM FACFAS Work Phone: NOMS WH PODStart: 01-13-2024 End: 65-87-4325Zcxlwg outpatient visit 25 minutesMarc D Dolce DPM FACFAS Work Phone: noMS NMA PODComment on above:Gangrene (CMS/HCC) (Primary Dx); PAD (peripheral artery disease) (CMS/HCC)Start: 01-13-2024 End: 21-32-5149ivlevdtzrzRQKY D DOLCENot AvailableStart: 59-03-6052kcidxabkrv PAUL [facility] Limatart: 01-08-2024 End: 58-80-6477Elmzzh flowsheetMarc D Dolce DPM FACFAS Work Phone: NOMS ASC PODStart: 01-08-2024 End: 87-06-1081Sqxwjr flowsheetMarc D Dolce DPM FACFAS Work Phone: noms ASC PODStart: 01-08-2024 End: 31-16-6469sjrszgedpqPXPC D DOLCENot AvailableStart: 01-08-2024 End: 59-54-1344Ztzyaz outpatient visit 25 minutesMarc D Dolce DPM FACFAS Work Phone: noMS NMA PODComment on above:PAD (peripheral artery disease) (CMS/HCC) (Primary Dx); Gangrene (CMS/HCC)Start: 14-50-1348Gfc-patient / Non-visitNohemi Phoenix MD Work Phone: [facility] Vascular Surgery Work Phone: Start: 01-07-2024 End: 60-80-1662Eymntvztx to same day surgery centerNohemi Phoenix MD Work Phone: [facility]-Interventional Radiology Work Phone: Start: 01-07-2024 End: 64-09-9523oyubchzauoTcnsa M Alda MD Work Phone: [facility] Work Phone: Start: 01-06-2024 End: 22-39-3943hpwounhcvrBhmmzpfzfPomerene Hospital Work Phone: Start: 01-06-2024 End: 08-40-9550Voxwpal encounter procedureWashington Regional Medical [facility] Vascular Surgery Work Phone: Start: 01-04-2024 End: 95-60-3317Gtcguv flowsheetMarc D Dolce DPM FACFAS Work Phone: NOMS ASC PODStart: 01-04-2024 End: 49-51-0028Uktnrv flowsheetMarc D Dolce DPM FACFAS Work Phone: NOMS ASC PODStart: 01-04-2024 End: 23-53-7444Uibpbg outpatient visit 25 minutesMarc D Dolce DPM FACFAS Work Phone: noMS NMA PODComment on above:PAD (peripheral artery disease) (CMS/HCC) (Primary Dx); 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, left (CMS/HCC); Gangrene (CMS/HCC)Start: 01-04-2024 End: 14-00-1692qhbcewfcesDCBF D DOLCENot AvailableStart: 01-02-2024 End: 41-37-7946Vxxlezjsp Result EncounterGeneric External Data ProviderNOMS External Department UnsolicitedStart: 01-02-2024 End: 78-70-7418Srioxexzw Result EncounterGeneric External Data ProviderNOMS External Department UnsolicitedStart: 12-31-2023 End: 14-76-5846Yarmraqnf Result EncounterGeneric External Data ProviderNOMS External Department UnsolicitedStart: 12-31-2023 End: 02-30-8848Rbmiyhvxs Result EncounterGeneric External Data ProviderNOMS External Department UnsolicitedStart: 51-91-2982cgnzkjlhoaMECN [facility] Limatart: 12-28-2023 End: 16-71-9892Pufsrm flowsheetMarc D Dolce DPM FACFAS Work Phone: NOMS ASC PODStart: 12-28-2023 End: 84-48-5688Yonbgh flowsheetMarc D Dolce DPM FACFAS Work Phone: NOMS ASC PODStart: 12-28-2023 End: 22-49-7599Ivenoy outpatient visit 25 minutesMarc D Dolce DPM FACFAS Work Phone: noMS NMA PODComment on above:Acute osteomyelitis of ankle and foot, left ([facility]/HCC) (Primary Dx); Type II diabetes mellitus with neurological manifestations ([facility]); 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, left ([facility]); PAD (peripheral artery disease) ([facility])Start: 12-28-2023 End: 21-54-7448ixbgvexewwGCHJ D DOLCENot AvailableStart: 12-23-2023 End: 39-48-3563Skcnyp flowsheetMarc D Dolce DPM FACFAS Work Phone: NOMS ASC PODStart: 12-23-2023 End: 13-18-2447Fktqhz flowsheetMarc D Dolce DPM FACFAS Work Phone: [phone] ASC PODStart: 12-23-2023 End: 99-90-1349Wsjycmj encounter procedureMarc D Dolce DPM FACFAS Work Phone: NOMS NMA PODComment on above:Type 2 diabetes mellitus with diabetic autonomic neuropathy, with long-term current use of insulin ( [facility]/HCC) (Primary Dx); 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, left ([facility]/HCC)Start: 12-23-2023 End: 55-27-7517bxgsitilnlRAFK D DOLCENot AvailableStart: 12-21-2023 End: 83-43-6635Wtqdqy flowsheetMarc D Dolce DPM FACFAS Work Phone: noms ASC PODStart: 12-21-2023 End: 04-36-1960Sjuwrh flowsheetMarc D Dolce DPM FACFAS Work Phone: noms ASC PODStart: 12-21-2023 End: 73-37-8704Kkiqrnris Result EncounterMarc D Dolce DPM FACFAS Work Phone: noms External Department UnsolicitedStart: 12-21-2023 End: 47-38-8232Dno Drop offMarc D [facility] CenterarletUc [facility] Center Start: 12-21-2023 End: 70-96-3897Ozohnm outpatient new 30 minutesMarc D Dolce DPM FACFAS Work Phone: noms NMA PODComment on above:Type 2 diabetes mellitus with diabetic autonomic neuropathy, with long-term current use of insulin ( [facility]) (Primary Dx); Abscess of great toe of left foot; Cellulitis of left foot; 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, left ([facility]); Contracture, ankle, leftStart: 12-21-2023 End: 47-11-4147krsfoabroqYxbv D DolceFacility:FTMCStart: 12-16-2023 End: 58-61-2114Dfajxy outpatient visit 25 minutesZenia Summers NP Work Phone: noms CI FMComment on above:Callus (Primary Dx); Type 2 diabetes mellitus with diabetic autonomic neuropathy, with long-term current use of insulin ([facility]); Toe infection; Diabetic polyneuropathy associated with type 2 diabetes mellitus (CMS/HCC); Thrombocytopenia, unspecified (CMS/HCC); Type 2 diabetes mellitus with hyperglycemia (CMS/HCC); Immunodeficiency due to conditions classified elsewhere ([facility]/HCC)Start: 12-16-2023 End: 33-56-1708ondbjmicpuBKMHPI M SHIVELYNot AvailableStart: 11-25-2023 End: 06-64-7963Agckskcjn Result EncounterGeneric External Data ProviderNOMS External Department UnsolicitedStart: 11-25-2023 End: 33-83-4645Ckjebjfyq Result EncounterGeneric External Data ProviderNOMS External Department UnsolicitedStart: 10-17-2021 End: 05-24-9760xpdhsayvgmZX JOSEFINA MARKERFacility:Q0Xyjup: 10-18-2020 End: 17-78-4307wvqkbenvpuNERMK ALDAFacility:UTMCStart: 04-07-2017 End: 00-03-1692DjinhjcuwoOUNQACG S (CLAUDIA) [facility]UCKIQRAACMC [facility] Start: 03-25-2017 End: 04-88-5416Ivurbrldyr and management of inpatientBRAGABRIELLA BEEBETempleton Developmental Center HospitalStart: 03-17-2017 End: 10-13-3299OieriynqamLIDOYCC JAY [facility] Procedures DateProcedureProcedure DetailPerforming ClinicianStart: 60-83-1205YA CHEST WO Ross Phoenix MD Work Phone: Start: 10-16-3246Gkmbdqrcuv glycosylated q6tEokuvNohemi Phoenix MD Work Phone: Start: 71-04-6130Xenre limb angiographyNohemi Phoenix MD Work Phone: Start: 50-95-7021RL FOOT LT WO CONGeneric External Data ProviderStart: 03-51-3288XWCCGVZUS BLOOD PRESSUREGeneric External Data ProviderStart: 05-92-5569OOQH C WOUNDMarc D Dolce DPM FACFAS Work Phone: Start: 12-77-5864Kqhma foot complete minimum 3 views Yonatan Zaida Rosado DPM FACFAS Work Phone: Start: 50-32-5305Xzirgqbitg glycosylated t9hGphonhshannan Summers NUTRITION COORDINATOR Work Phone: Start: 27-13-6373JPU BASIC METABOLIC PANELGeneric External Data ProviderStart: 53-32-8167XYN LIPID PROFILE (FASTING)Generic External Data Provider Plan of Treatment DateCare ActivityDetailAuthorStart: 27-57-4079Gusfmzuko vaccinationInfluenza Vaccine (#1)NOMS HealthcareComment on above:Postponed from 10/25/2023 (Other Medical Reasons)Start: 01-04-2025 End: 47-67-3172Upiqyzv encounter /12/2025 9:30 AM EST [facility] [address] [place] [phone] Esthela Sumner PA [address] [place] [address] [facility] OrthopaedicsStart: 11-09-2024 End: 95-66-3944Ysruzno encounter affudsomv13/17/2025 9:30 AM EDT Office Visit [facility] [address] [place] [phone] Esthela Sumner PA [address] [place] [address] Acute thoracic back pain, unspecified back pain laterality (Primary Dx); Muscle spasm ofback; Acute pain of right shoulderNOSchuyler Memorial Hospital OrthopaedicsComment on above:Acute thoracic back pain, unspecified back pain laterality (Primary Dx); Muscle spasm of back; Acute pain of right shoulderStart: 43-70-8179Bkeodvepd vaccinationInfluenza Vaccine (#1)[facility] HealthcareStart: 51-89-2517Ahjcoucrnp A1c measurementDiabetes: Hemoglobin D1UYLTB HealthcareStart: 09-28-9747Hpzdn screening for protein Diabetes: Urine Protein ScreeningNOIL HealthcareStart: 05-23-2024 End: 49-51-7779Ctptbup encounter kkbmsiwnv72/31/2025 1:10 PM EDT Office Visit [facility] NMA POD [address] [address] Yonatan Rosado, DPM FACFAS [address] [place] [address] [facility] NMA PODStart: 55-82-1261Ekljtvfo screeningDiabetes: Retinopathy ScreeningNOIL HealthcareStart: 04-01-2024 End: 60-78-0653Jwcdkvt encounter dkipojnbj45/07/2025 10:20 AM EST Office Visit [facility] NMA POD [address] [place] [phone] DoYonatan cuevas, DPM FACFAS [address] [place] [address] NOMS NMA PODStart: 03-30-2024 End: 73-11-5449Csuypoq encounter wtpkxfyue22/05/2025 4:30 PM EST Office Visit [facility] CI FM [address] [facility] [address] [place] [address] Chevy Herrera, NUTRITION COORDINATOR [address] [facility] [address] [place] [address] ArrivedNOMS CI FMComment on above:ArrivedStart: 65-41-9826Ubevmatmix A1c measurementDiabetes: Hemoglobin W2ANXFDSt. Louis VA Medical Center Start: 03-04-2024 End: 37-43-7838Qzmdxnk encounter procedureNOMS NMA PODComment on above:Arrived Start: 02-19-2024 End: 14-09-4340Pdhfuof encounter procedureNOMS NMA PODComment on above:Arrived Start: 02-12-2024 End: 71-31-7753Xooppgx encounter procedureNOMS NMA PODComment on above:Arrived Start: 02-09-2024 End: 83-35-7082Vhmuanl encounter procedureNOMS NMA PODComment on above:Arrived Start: 02-01-2024 End: 45-56-6032Kmrncpf encounter usoyydnwb26/09/2024 8:20 AM EST Office Visit [facility] NMA POD [address] [place] [phone] Yonatan Rosado, DPM FACFAS [address] [place] [address] NOMS NMA PODStart: 26-64-1172Vunxp screening for protein Diabetes: Urine Protein ScreeningBEAVER VALLEY [facility]OSPITAL HealthcareStart: 01-25-2024 End: 22-51-9536Byawqlq encounter procedureNOMS NMA PODComment on above:Arrived Start: 01-13-2024 End: 26-20-4461Hvlpuwj encounter procedureNOMS NMA PODComment on above:Arrived Start: 63-27-5387OlwrapnstSouthern Ohio Medical Centertart: 12-28-2023 End: 96-61-2959RB Foot - left WO contrastMR foot left wo IV contrast Imaging Routine Type II diabetes mellitus with neurological manifestations (CMS/HCC) Acute osteomyelitis of ankle and foot, left (CMS/HCC) Expected: 12/28/2023 (Approximate), Expires: 12/27/2024[facility] Healthcare Work Phone: Comment on above:Expected: 12/28/2023 (Approximate), Expires: 12/27/2024Start: 12-28-2023 End: 23-83-5469CA.doppler Extremity arteries - bilateral for physiologic artery study at rest and with exerciseVASC US PVR/SEGMENTAL PRESSURES LOWER Imaging Routine Type II diabetes mellitus with neurological manifestations (CMS/HCC) PAD (peripheral artery disease) (CMS/HCC) Expected: 12/28/2023 (Approximate), Expires: 02/27/2024NOMS HealthcareComment on above:Expected: 12/28/2023 (Approximate), Expires: 02/27/2024Start: 12-28-2023 End: 69-74-1485Amwnjtv encounter procedureNOMS NMA PODComment on above:Arrived Start: 12-23-2023 End: 95-34-2216Fkhtqws encounter procedureNOMS NMA PODComment on above:Arrived Start: 12-21-2023 End: 94-48-0778Ccxcyrwv identified in Wound by CultureWound culture Microbiology Routine Abscess of great toe of left foot Expected: 12/21/2023 (Approximate), Expires: 12/20/2024[facility] Work Phone: Comment on above:Expected: 12/21/2023 (Approximate), Expires: 12/20/2024Start: 12-21-2023 End: 55-28-7698Zswwsku encounter jqhofieyn03/28/2024 10:00 AM EDT Office Visit [facility] NMA POD [address] [place] [address] SyxvpYon[place] [address] Type 2 diabetes mellitus with diabetic autonomic neuropathy, with long- term current use of insulin (CMS/HCC); Callus; Toe infectionNOMS NMA PODComment on above:Type 2 diabetes mellitus with diabetic autonomic neuropathy, with long- term current use of insulin (CMS/HCC); Callus; Toe infectionStart: 39-30-5958Ournytchte A1c measurementDiabetes: Hemoglobin A1C [facility] HealthcareStart: 35-72-0253Vlahpcdyu vaccinationInfluenza Vaccine (#1)[facility] HealthcarePatient EducationWound Care for Arterial Puncture (DC) Know your [facility] Work Phone: Patient referralUniversity [facility]als [facility] Work Phone: Immunizations Immunization DateImmunizationNotesCare LevfqusgQroqoyat93-84-8887nrtlystxzi, tetanus toxoids and pertussis vaccineGeneric [facility]08-24-2022 tetanus toxoid, reduced diphtheria toxoid, and acellular pertussis vaccine, adsorbedGeneric [facility] HealthBzyulvsowf24-97-3495mnktdkm toxoid, reduced diphtheria toxoid, and acellular pertussis vaccine, adsorbedGeneric [facility] Payers DatePayer CategoryPayerPolicy [id number] Cross Blue ShieldBCBS Member Subscriber Plan / Payer (Effective 2021-Present) Name: Leida Hou Relation to Subscriber: Self Name: Leida Hou Payer ID: Not on file Type: Not on file Address: [facility] [id number] [place] [id number] [facility] BCBS [id number] 2021-Present [phone] [facility] [address] [place] [id number]78-41-6026Hcmejdc [id number] 2.16.840.1.148596.3.579.2.96133-48-0753 [id number] 2.16.840.1.369614.3.57[id number] 2.16.840.1.704504.3.579.[id number] 2.16.840.1.504519.3.579.2.15604-65-7470Vtcalrh74010046 2.16.840.1.505281.3.579.[id number] 2.16.840.1.181892.3.579.2.[id number] 2.16.840.1.035186.3.579.2.485168-00-1565Juswgut5358741 2.16.840.1.937427.3.579.2.751143-71-5010Imitunr2962932 2.16.840.1.546740.3.579.2.269473-40-0038Xxwvslp1190576 2.16.840.1.687785.3.579.2.176119-84-0473Gjxuiac9557024 2.16.840.1.582245.3.579.2.096715-17-1443Fufwhfd3894572 2.16840.1.293522.3.579.2.773042-26-3118Yivyyzn2934656 2.16.840.1.632239.3.579.2.260952-30-0048Iqcilwc3204562 2..1.866729.3.579.2.575777-14-2904Zhmecxp6678830 2..1.912036.3.579.2.313656-93-8669Vofdkap2985943 2..1.964882.3.579.2.517881-25-4054Wyqgyae6176536 2..1.064790.3.579.2.980006-92-3326Eipccqh5221284 2..1.562081.3.579.2.723161-74-1396Ubiryub5606746 2..1.832002.3.579.2.423704-28-5628Cognype3751007 2..1.836594.3.579.2.641657-60-2521Yhvlfxr5409211 2..1.991940.3.579.2.396403-61-0258Xqpqnyz1747032 2..1.746431.3.579.2.294922-03-2229Myibdnl9041522 2..1.430340.3.579.2.188692-81-6760Axwwcdz0927817 2..1.111499.3.579.2.782102-77-3345AjhwfxlBGB236565306232Iiuflub [id number] 2..1.823110.3.579.2.794Mlxwtgj40435092 2..1.441613.3.579.2.531 Social History DateTypeDetailFacilityStart: 04-43-0457Ngivssv smoking status NHISNever smoked tobaccoNOMS HealthcareStart: 87-85-4982Vxnpajf use and exposureUser of smokeless tobaccoNOIL HealthcareHistory of tobacco useChews TobaccoNOIL HealthcareStart: 09-28-2023 End: 83-83-0963Ylsdnnpez beverage intakeEx-drinker (finding)[facility] Start: 09-28-2023 End: 25-02-7072Upjfvqm of Social functionNOIL HealthcareStart: 09-28-2023 End: 82-02-0314Aktcfzu use [facility] 1965 Sex assigned at birthNot on [facility] HospitalTobacco smoking statusNo Smoking Status EnteredUc Medical Center Start: 01-06-2024 End: 07-86-5033Szjbasv smoking status NHISEx-smoker (finding)[facility] Centertart: 21-99-4370PfeJqqg (finding)[facility] Centertart: 10-33-2527Qeu Assigned At BirthCommunity Memorial Hospitaltart: 69-76-7170WrfYvizwkg sex unknown (finding)[facility] Centertart: 42-52-0460AuaQiueWAMT Healthcare Medical Equipment Procedure CodeEquipment CodeEquipment Original TextEquipment IdentifierDates [id number], [id number], [id number]: 38-92-6231Ptczhct Syringe-Needle U-100 (Bd Veo Insulin Syringe Uf) 1/2 mL 31 gauge x 15/64 syringeStart: 21-80-4425Hzxlrhm Syringe-Needle U-100 (Bd Veo Insulin Syringe Uf) 1/2 mL 31 gauge x 15/64 syringeStart: 01-06-2024 Functional Status YdvuLnkfxbisinAmvxkmIpnwouhi23-36-1514Atsvzfz Health Questionnaire 2 item (PHQ- 2) [Reported][facility] CenterOeyfjzgnva38-78-4486Ategich Health Questionnaire 2 item (PHQ- 2) [Reported][facility] Clinical Notes 12-16-2023 to 11-23-2024 Note Date & ErmjZngbGpftdfhx21-58-3007 History of Present illness Narrative* Yanick Dykes PTA - 11/23/2024 11:17 AM EDT No show no call for Eval. Call x 3 on 11/22, no answer, and unable to leave . documented in this encounterMissouri Delta Medical CenterHnivnsvuzu10-53-2838 History of Present illness Narrative* CLAUDIA Lopez - 11/09/2024 9:30 AM EDT Images from the original note were not included. Orthopedic Office note: NAME: Leida Hou : 1965 NEW PT WITH RIB PAIN - DICKSON SUMMERS [place]; TIZANIDINE/PREDNISONE/ CT CHEST 10/31/24 [facility]- C/O RT SIDEDRIB PAIN- PT STATES IT STARTED AFTER HE WAS TRIMMING BUSHES AT HOME ~6WKS PT HAS PACEMAKER/DEFIBULATOR CT CHEST 10/31/24 [facility] PREDNISONE TIZANADINE PT STATES PAIN STARTED WITH RT ANTERIOR CHEST PAIN - PAIN DOES WRAP AROUND POSTERIOR RIBS/SCAPULA -+WAKES HS- PAIN IS CONSTANT- INCREASE PAIN WITH [...] deep compression. Latissimus dorsi: No pain with stressing.Compartments: Soft. Skin: No evidence of rash or excoriation. Neurological: Normal. Orders Placed This Encounter Procedures Ambulatory referral to Physical Therapy Standing Status: Future Expected Date: 11/09/2024 Expiration Date: 05/09/2025 Referral Priority: Routine Referral Type: Consultation Referral Reason: Consult and Treat Referred to Provider: Foreign Greer, PT Requested Specialty: Physical Therapy Number of [...] back pain laterality M54.6 Ambulatory referral to PhysicalTherapy Ambulatory referral to Pain Medicine 2. Muscle [...] to the cardiac device. Symptom onset included aslight pop or rib shift in the affected area, suggesting a possible slipped rib. Chiropractic or DOmanipulative treatment was discussed. Diagnostic plan: Formal physical [...] requiring urgent evaluation. 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 documented in this encounterMissouri Delta Medical CenterBpqplirrma79-55-3922 History of Present illness Narrative* Zenia Summers NP - 10/05/2024 9:00 AM EDT Images from the original note were not included. Subjective Patient ID: Leida Hou is a 59 y.o. male who presents for No chief complaint on file.. Leida presents today for a possible torn muscle in his right side bonilla area. He was trimming trees 2weeks ago. He has taken OTC tylenol and Motrin and used ice and heat. He states the pain is gettingworse. When he has his shirt off the [...] TBI is abnormal CHF (congestive heart failure) (HCC) Cholelithiasis 2017 Diabetes mellitus (HCC) Diverticulitis 2017 [...] dysfunction, mild to moderate mitral regurgitaion Hypertension TN (myocardial infarction) (HCC) 2010 Past Surgical History: Procedure Laterality Date [...] may cause drowsiness. Encouraged gentle heat to area.Advised patient that if symptoms do not improve imaging may be required for further evaluation, PT referral may also be appropriate. If no improvement in 7 days, come back to office for further treatment. No follow-ups on file. documented in this encounterMissouri Delta Medical CenterMvskglyuxk40-87-1822 History of Present illness Narrative* Nohemi Phoenix MD - 05/16/2024 2:40 PM EDTAssociated Problem(s): Type 2 diabetes mellitus with diabetic [...] importance of healthy diet and exercise. * Nohemi Phoenix MD - 05/16/2024 2:00 PM EDT Images from the original note were [...] UNDER THE SKIN IN THE MORNING AND ATNOON AND IN THE EVENING BEFORE MEALS. No [...] mild to moderate mitral regurgitaion Hypertension (CMS/HCC) TN (myocardial infarction) (CMS/HCC) 2010 Past Surgical History: [...] 2 diabetes mellitus with foot ulcer (CODE) ([facility]) Relevant Medications insulin aspart (NovoLOG FLEXPEN) 100 UNIT/ML pen Other Relevant Orders POCT glycosylated hemoglobin (Hb A1C) docked device Follow up in about 4 weeks (around 06/13/2024) for Recheck. documented in this encounterMissouri Delta Medical CenterElpvdkmcxi93-99-3264 History of Present illness Narrative* Chevy Herrera NP - 03/30/2024 4:30 PM EST Images from the original note were [...] heart failure) (CMS/HCC) Cholelithiasis 2017 Diabetes mellitus (CMS/[facility]) Diverticulitis 2017 partial obstruction H/O CT scan [...] mild to moderate mitral regurgitaion Hypertension (CMS/HCC) TN (myocardial infarction) ([facility]/HCC) 2010 Past Surgical History: Procedure Laterality Date [...] rest, continue otc mucinex as ordered, may continueotc tylenol as directed, continue all medication as [...] No follow-ups on file. documented in this [facility]02-05-2025 Instructions* Patient Instructions* Chevy Herrera NP - 03/30/2024 4:30 PM EST Zithromax added Albuterol added Hycodan syrup added documented in this [facility]01-10-2025 History of Present illness Narrative* Yonatan Rosado DPM FACFAS - 03/04/2024 10:30 AM EST Patient: Leida Hou : 1965 PCP: Nohemi [...] TBI is abnormal CHF (congestive heart failure) ([facility]) Cholelithiasis 2017 Diabetes mellitus ([facility]) Diverticulitis 2017 partial obstruction H/O CT scan [...] dysfunction, mild to moderate mitral regurgitaion Hypertension ([facility]) [place] (myocardial infarction) ([facility]) 2010 Medications: Current Outpatient Medications: amLODIPine (Norvasc) [...] Continuous Glucose Sensor (FreeStyle Shazia 2 Sensor) [facility] [place], Inject 1 each under the skin every [...] under the skin in the morning and 30Units at noon and 30 Units in the [...] 1 Device in the evening and 1 Devicebefore bedtime., Disp: 400 each, Rfl: 3 Jardiance 25 MG, TAKE 1 TABLET BY MOUTH EVERY DAY IN THE MORNING, Disp: 30 tablet, Rfl: 11 meclizine (Antivert) 25 MG tablet, 1 tablet as needed Orally every 4-6 hours as needed for 90 days,Disp: 30 tablet, Rfl: 1 omeprazole (PriLOSEC) 20 [...] 1 tabletin the evening., Disp: , Rfl: Review of [...] < 3 seconds Digits 1-5 bilateral NEURO: [place] 5.07 monofilament was intact B/L. Vibratory sensation was intact B/L Musculoskeletal: Muscle strength was +5 over 5 all intrinsic and extrinsic muscles tested. NegativeHomans test noted Surgical site evaluation: The incision site is healing well without signs infection. Minimal swelling noted. Consistent with the patient's level of surgery consistent with time frame postoperatively.Incision sites well coapted no signs of infection ASSESSMENT 1. Type II diabetes mellitus with neurological manifestations (CMS/HCC) 2. Amputation of left great toe (CMS/HCC) PLAN Patient is doing very well he is having some slight difficulty wearing toe filler with his new shoes great appears his shoes are slightly small in nature. Recommending he size 1/2 size in his shoe. Idid fit them into his regular shoes this point follow up with me in 1 month for reexamination he isdoing very well SUSANA aDvis documented in this [facility]12-27-2024 History of Present illness Narrative* SUSANA Davis - 02/19/2024 9:50 AM EST Patient had a small dehiscence of his [...] the left has a toe filler built intothe rigid orthotic device for support. L5000 The [...] the great toe left documented in this [facility]12-20-2024 History of Present illness Narrative* SUSANA Davis - 02/12/2024 10:30 AM EST Patient had a small dehiscence of his wound underwent a delayed primary closure performed by Dr. Gomez last week. Incision sites well coapted no signs of infection continue with dressing changes as ordered in his surgical shoe follow up 2 weeks denies fever chills nausea vomiting documented in this encounterMissouri Delta Medical [id number] History of Present illness Narrative* SUSANA Navas - 02/09/2024 2:20 PM EST Patient: Leida Hou : 1965 PCP: Nohemi [...] TBI is abnormal CHF (congestive heart failure) ([facility]) Cholelithiasis 2017 Diabetes mellitus ([facility]) Diverticulitis 2017 partial obstruction H/O CT scan [...] dysfunction, mild to moderate mitral regurgitaion Hypertension ([facility]) TN (myocardial infarction) ([facility]) 2010 Medications: Current Outpatient Medications: amLODIPine (Norvasc) [...] under the skin in the morning and 30Units at noon and 30 Units in the [...] 1 Device in the evening and 1 Devicebefore bedtime., Disp: 400 each, Rfl: 3 Jardiance 25 MG, TAKE 1 TABLET BY MOUTH EVERY DAY IN THE MORNING, Disp: 30 tablet, Rfl: 11 meclizine (Antivert) 25 MG tablet, 1 tablet as needed Orally every 4-6 hours as needed for 90 days,Disp: 30 tablet, Rfl: 1 omeprazole (PriLOSEC) 20 [...] 1 tabletin the evening., Disp: , Rfl: Tuberculin Syringe ([employer] Tuberculin Safety Syr) 25G X 5/8 1 [...] < 3 seconds Digits 1-5 bilateral NEURO: [place] 5.07 monofilament was intact B/L. Vibratory sensation was intact B/L Musculoskeletal: Muscle strength was +5 over 5 all intrinsic and extrinsic muscles tested. NegativeHomans test noted Surgical site evaluation: The incision site is healing well without signs infection. Minimal swelling noted. Consistent with the patient's level of surgery consistent with time frame postoperatively.Sutures remain intact without signs of dehiscence. Flaps [...] Prolene today after adequate prepping and draping. Casi Rosado DPM FACMAYLIN documented in this encounterMissouri Delta Medical [id number] History of Present illness Narrative* Yonatan Rosado DPM FACFAS - 02/09/2024 9:20 AM EST Images from the original note [...] elevation and pain medication. They have been relativelycompliant with her postoperative care. Patient is doing well he had revascularization procedure pain has improved significantly. Allergies: Allergies Allergen Reactions Atorvastatin Other Reaction(s): other Codeine Nausea Only Past Medical History: Past Medical History: Diagnosis Date Abnormal ankle brachial index (KUSH) 2020 KUSH normal, TBI is abnormal CHF (congestive heart failure) ([facility]) Cholelithiasis 2016 Diabetes mellitus ([facility]) Diverticulitis 2017 partial obstruction H/O CT scan [...] dysfunction, mild to moderate mitral regurgitaion Hypertension ([facility]) TN (myocardial infarction) ([facility]) 2010 Medications: Current Outpatient Medications: amLODIPine (Norvasc) [...] under the skin in the morning and 30Units at noon and 30 Units in the [...] 1 Device in the evening and 1 Devicebefore bedtime., Disp: 400 each, Rfl: 3 Jardiance 25 MG, TAKE 1 TABLET BY MOUTH EVERY DAY IN THE MORNING, Disp: 30 tablet, Rfl: 11 meclizine (Antivert) 25 MG tablet, 1 tablet as needed Orally every 4-6 hours as needed for 90 days,Disp: 30 tablet, Rfl: 1 omeprazole (PriLOSEC) 20 [...] 1 tabletin the evening., Disp: , Rfl: Tuberculin Syringe [...] < 3 seconds Digits 1-5 bilateral NEURO: [place] 5.07 monofilament was intact B/L. Vibratory sensation was intact B/L Musculoskeletal: Muscle strength was +5 over 5 all intrinsic and extrinsic muscles tested. NegativeHomans test noted Surgical site evaluation: The incision site is healing well without signs infection. Minimal swelling noted. Consistent with the patient's level of surgery consistent with time frame postoperatively.Sutures remain intact without signs of dehiscence. Flaps appear to be viable incision is well coapted no pain ASSESSMENT 1. PAD (peripheral artery disease) ([facility]) 2. Gangrene ([facility]) 3. Type II diabetes mellitus with neurological manifestations ([facility]) 4. Acute osteomyelitis of ankle and foot, left ([facility]) PLAN Today we applied a dry sterile dressing with betadine to the incision site. Sutures removed today may begin to shower he is not to soak the foot. Awaiting his toe filler follow up next week to have that dispensed SUSANA Davis documented in this encounterMissouri Delta Medical [id number] History of Present illness Narrative* SUSANA Davis - 02/01/2024 8:20 AM EST Patient: Leida Hou : 1965 PCP: Nohemi Phoenix MD SUBJECTIVE This is a 58 y.o. male that presents today The patient is here status post amputation great toe left procedure. Postop week 2. They deny fevers, chills, nausea, vomiting, calf pain and shortness of breath. Pain level is being managed with ice elevation and pain medication. They have been relativelycompliant with her postoperative care. Patient is doing well he had revascularization procedure pain has improved significantly. Allergies: Allergies Allergen Reactions Atorvastatin Other Reaction(s): other Codeine Nausea Only Past Medical History: Past Medical History: Diagnosis Date Abnormal ankle brachial index (KUSH) 2020 KUSH normal, TBI is abnormal CHF (congestive heart failure) ([facility]) Cholelithiasis 2017 Diabetes mellitus ([facility]) Diverticulitis 2017 partial obstruction H/O CT scan [...] dysfunction, mild to moderate mitral regurgitaion Hypertension ([facility]) TN (myocardial infarction) ([facility]) 2010 Medications: Current Outpatient Medications: amLODIPine (Norvasc) [...] Continuous Glucose Sensor (FreeStyle Shazia 2 Sensor) [facility] [place], Inject 1 each under the skin every [...] under the skin in the morning and 30Units at noon and 30 Units in the [...] for 90 days,Disp: 30 tablet, Rfl: 1 omeprazole (PriLOSEC) 20 [...] 1 tabletin the evening., Disp: , Rfl: Tuberculin Syringe ([employer] Tuberculin Safety Syr) 25G X 5/8 1 [...] < 3 seconds Digits 1-5 bilateral NEURO: [place] 5.07 monofilament was intact B/L. Vibratory sensation was intact B/L Musculoskeletal: Muscle strength was +5 over 5 all intrinsic and extrinsic muscles tested. NegativeHomans test noted Surgical site evaluation: The incision site is healing well without signs infection. Minimal swelling noted. Consistent with the patient's level of surgery consistent with time frame postoperatively.Sutures remain intact without signs of dehiscence. Flaps appear to be viable ASSESSMENT 1. PAD (peripheral artery disease) ([facility]) 2. Gangrene ([facility]) 3. Type II diabetes mellitus with neurological manifestations ([facility]) 4. Acute osteomyelitis of ankle and foot, left ([facility]) PLAN Today we applied a dry sterile [...] to arrive from the laboratory. Sutures will beremoved next week he may start partial weight-bearing in his surgical shoe SUSANA Davis documented in this encounterMissouri Delta Medical [id number] History of Present illness Narrative* SUSANA Davis - 01/25/2024 10:30 AM EST Images from the original note [...] elevation and pain medication. They have been relativelycompliant with her postoperative care. Patient is doing well he had revascularization procedure pain has improved significantly. Allergies: Allergies Allergen Reactions Atorvastatin Other Reaction(s): other Codeine Nausea Only Past Medical History: Past Medical History: Diagnosis Date Abnormal ankle brachial index (KUSH) 2020 KUSH normal, TBI is abnormal CHF (congestive heart failure) ([facility]) Cholelithiasis 2017 Diabetes mellitus ([facility]) Diverticulitis 2017 partial obstruction H/O CT scan [...] dysfunction, mild to moderate mitral regurgitaion Hypertension ([facility]) TN (myocardial infarction) ([facility]) 2010 Medications: Current Outpatient Medications: amLODIPine (Norvasc) [...] Continuous Glucose Sensor (FreeStyle Shazia 2 Sensor) [facility], Inject 1 each under the skin every [...] under the skin in the morning and 30Units at noon and 30 Units in the [...] for 90 days,Disp: 30 tablet, Rfl: 1 omeprazole (PriLOSEC) 20 [...] < 3 seconds Digits 1-5 bilateral NEURO: [place] 5.07 monofilament was intact B/L. Vibratory sensation was intact B/L Musculoskeletal: Muscle strength was +5 over 5 all intrinsic and extrinsic muscles tested. NegativeHomans test noted Surgical site evaluation: The incision site is healing well without signs infection. Minimal swelling noted. Consistent with the patient's level of surgery consistent with time frame postoperatively.Sutures remain intact without signs of dehiscence. Flaps appear to be viable ASSESSMENT 1. PAD (peripheral artery disease) ([facility]) 2. Gangrene ([facility]) 3. Type II diabetes mellitus with neurological manifestations ([facility]) 4. 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11-25-2024 Telephone encounter Note* Telephone Encounter - SUSANA Davis - 01/18/2024 1:19 PM EST The prescription has been sent to the pharmacy. Thank you. [facility] Medical CenterWkjjplcjyx24-35-9039 Miscellaneous Notes* Telephone Encounter - SUSANA Davis - 01/18/2024 1:19 PM EST The prescription has been sent to the pharmacy. Thank you. documented in this [facility]11-20-2024 Telephone encounter Note* Telephone Encounter - SUSANA Davis - 01/13/2024 8:50 PM EST Phone #: [phone] Insurance: Payor: BS / Plan: BCBS / Product Type: *No Product type* / Preferred Date/Time: First Available [x] ROCIO [x] Patient Name: Leida Hou : 1965 Surgeon: Dr. Yonatan Rosado [x] Dr. Casi Rosado [] Location: [facility] [x] [facility] [] [facility] [] Procedure(s): amputation left great toe CPT Code(s): 08845 Diagnosis: ICD-10-CM 1. Gangrene (CMS/HCC) I96 2. PAD (peripheral artery disease) ([facility]) I73.9 Procedure Time: 30 min [x] 1 [...] Clearance: Cardiology [] Rheumatology [] Other [] [facility] CenterJothdczslt61-14-2366 Miscellaneous Notes* Telephone Encounter - SUSANA Davis - 01/13/2024 8:50 PM EST Phone #: [phone] Insurance: Payor: [facility] / Plan: BCBS / Product Type: *No Product type* / Preferred Date/Time: First Available [x] ROCIO [x] Patient Name: Leida Hou : 1965 Surgeon: Dr. Yonatan Rosado [x] Dr. Casi Rosado [] Location: [facility] [x] [facility] [] [facility] [] Procedure(s): amputation left great toe CPT Code(s): 73203 Diagnosis: ICD-10-CM 1. Gangrene ([facility]) I96 2. PAD (peripheral artery disease) ([facility]) I73.9 Procedure Time: 30 min [x] 1 [...] Rheumatology [] Other [] documented in this encounterMissouri Delta Medical CenterStezbdecmf18-60-1748 History of Present illness Narrative* SUSANA Davis - 01/13/2024 11:30 AM EST Images from the original [...] diabetic sugars have been running somewhat high accordingto the patient. He does deny fever chills nausea vomiting. Status post incision and drainage of theleft great toe region currently on Bactrim DS. [...] Information CT FOOT LT WO CON [facility] [address] [place] [address] CT Scan Report Signed Patient: LEIDA HOU MR#: [id number] : 1965 Acct:[id number] Age/Sex: 58 / M ADM Date: 12/30/23 [...] TBI is abnormal CHF (congestive heart failure) ([facility]) Cholelithiasis 2017 Diabetes mellitus ([facility]) Diverticulitis 2017 partial obstruction H/O CT scan [...] mild to moderate mitral regurgitaion Hypertension (CMS/HCC) TN (myocardial infarction) ([facility]) 2010 Medications: Current Outpatient Medications: amLODIPine (Norvasc) [...] Disp: 20 tablet, Rfl: 0 Tuberculin Syringe ([employer] Tuberculin Safety Syr) 25G X 5/8 1 ML misc, USE DIRECTED, Disp: 100 each, Rfl: 4 ROS: Constitutional: Denies fever, chills, nausea, vomiting GI: Denies abdominal pain, cramping, loose stool, gastric ulcers Musculoskeletal: Denies low back pain, knee pain, systemic arthritis Neurologic: Denies burning, tingling, transient paralysis OBJECTIVE Physical examination: Vascular: Dorsalis pedis posterior tibial pulses are palpable bilateral, no edema noted Neuro: [place] 5.07 monofilament intact, vibratory sensation intact Derm: [...] PAD (peripheral artery disease) (CMS/HCC) 2. Gangrene ([facility]) PLAN I Educated the patient on a gangrene of the left great toe. Patient will be having a 2nd vascular procedure performed on Thursday explained to most likely he will require amputation of the left great toe. The toe has significant gangrene. At this point our plan is to keep the area clean and dry eyesthe continue with Betadine daily. Follow up with [...] possible complications. We discussed the following complications ingreat detail including but not limited to: Pain, infection, prolonged swelling, numbness, tingling,burning, nonhealing wound, nonunion, malunion, chronic pain, development of complex regional pain syndrome, development of deep venous thrombosis. Patient fully understood all possible risks and complications. All questions have been asked and answered. They have consented for the above-stated procedure. SUSANA Davis documented in this [facility]11-15-2024 History of Present illness Narrative* SUSANA Davis - 01/08/2024 9:40 AM EST Images from the original note [...] diabetic sugars have been running somewhat high accordingto the patient. He does deny fever chills nausea vomiting. Status post incision and drainage of theleft great toe region currently on Bactrim DS. [...] Information CT FOOT LT WO CON [facility] [address] [place] [address] CT Scan Report Signed Patient: LEIDA HOU MR#: [id number] : 1965 Acct:[id number] Age/Sex: 58 / M ADM Date: 12/30/23 [...] TBI is abnormal CHF (congestive heart failure) ([facility]) Cholelithiasis 2017 Diabetes mellitus ([facility]) Diverticulitis 2017 partial obstruction H/O CT scan [...] mild to moderate mitral regurgitaion Hypertension (CMS/HCC) TN (myocardial infarction) (CMS/HCC) 2010 Medications: Current Outpatient [...] Disp: 20 tablet, Rfl: 0 Tuberculin Syringe ([employer] Tuberculin Safety Syr) 25G X 5/8 1 ML misc, USE DIRECTED, Disp: 100 each, Rfl: 4 ROS: Constitutional: Denies fever, chills, nausea, vomiting GI: Denies abdominal pain, cramping, loose stool, gastric ulcers Musculoskeletal: Denies low back pain, knee pain, systemic arthritis Neurologic: Denies burning, tingling, transient paralysis OBJECTIVE Physical examination: Vascular: Dorsalis pedis posterior tibial pulses are palpable bilateral, no edema noted Neuro: [place] 5.07 monofilament intact, vibratory sensation intact Derm: [...] as prescribed. SUSANA Davis documented in this encounterMissouri Delta Medical CenterLdveoohjes22-93-3668 [place] [address] Vascular Surg Procedure Note Signed Patient: Leida Hou MR#: [id number] : 1965 Acct:[id number] Age/Sex: 58 / M Adm Date: 4 Loc: IR Room: Type: [facility] Attending Dr: Esthela Fields MD Copies to: MD Nohemi Zayas MD~ Vascular Procedure Date/Provider Date: 01/07/2024 Esthela Fields MD [facility] Procedure Procedure performed: Percutaneous, ultrasound-guided, aortogram with bilateral lower extremity runoffand interpretation,left SFA angioplasty. Narrative: Preop diagnosis: Left great toe gangrene and left lower extremity critical limb ischemia. Postoperative diagnosis: Same Location: Special suite at [place], [place]. 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 The patient has gangrene of his left great toe with pain. The patient had nonpalpable left pedal pulses and nonpalpableleft popliteal pulse. Patient is at risk for limb loss and amputation of the leg. He presents for attempt at limb salvage. 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 Questionable proximal left common iliac artery stenoses. Normal-appearing left popliteal artery. Disposition: This patient will present a week from Thursday for attempt at retrograde recanalization of the left popliteal SFA segment. Complications: None at the time of this dictation. EBL: Minimal Anesthesia: Conscious sedation with local Op note: This pleasant patient was taken the special suite and placed in the supine position the table. After adequate sterile prep and drape a timeout was taken. Lidocaine was used anesthetize the skin subtenons tissue in the right groin. A 5 [place] short sheath was placed using sterile, real-time, dynamic ultrasound guidance and a micropuncture technique. An Omni Flush catheter was then advanced at T12 over a stiff angled, 035 Glidewire. The power injector wasused to perform an aortogram. We then withdrew the catheter to the bifurcation and completed the runoff bilaterally with interpretation. A 6 [place] 45 cm sheath was then parked up and over with fluoroscopic guidance using a stiff angled 035 Glidewire. I then used a combination of the 018 short tip command wire and the stiff Glidewire to punch through the chronic total occlusion of theleft SFA. I then ballooned this with a 4 x 200cm balloon. There was left SFA angioplasty completed. This was in a subintimal plane. I was not able to reenter in the popliteal artery. Therefore the patient will need to come back for retrograde attempt at crossing the Marc's canal chronic total occlusion. A Mynx was deployed successfully the patient taught the procedure well. Heparinwas given prior to angioplasty. Documented By: Esthela Fields MD 01/07/24912 Signed By: 01/07/24917 [facility]11-13-2024 Evaluation note* Diagnosis Onset Date Resolution Status Admit Date [facility] 2023 11:25am [facility] Work Phone: 1(309) 851-277611-11-2024 History of Present illness Narrative* Yonatan Rosado DPM FACFAS - 01/04/2024 11:30 AM EST Images from [...] noted [place] [address] CT Scan Report Signed Patient: LEIDA HOU MR#: [id number] : 1965 Acct:[id number] Age/Sex: 58 / M ADM Date: 12/30/23 Loc: [facility] Attending Dr: YONATAN ROSADO M.D. Ordering Physician: YONATAN ROSADO M.D. Date of Service: 12/30/23 Procedure(s): CT foot LT wo con Accession Number(s): [id number] 1. There appears to be a small [...] by: DONTA BALLARD Date: 01/02/2024 08:47 [place] [address] Vein Report Signed Patient: LEIDA HOU MR#: [id number] : 1965 Acct:[id number] Age/Sex: 58 / M ADM Date: 12/30/23 Loc: Attending Dr: YONATAN ROSADO M.D. Ordering Physician: YONATAN ROSADO M.D. Date of Service: 12/30/23 Procedure(s): VC SEGMENTAL PRESSURES Accession Number(s): [id number] cc: NOHEMI PHOENIX ; YONATAN ROSADO M.D. The [address] [id number] Patient Name: LEIDA HOU MRN: [id number] date: 1965 Sex: M Assigned Patient Location: Current Patient Location: Accession/Order Number: [id number] Exam Date: 12/30/2023 13:05 Report Date: 12/31/2023 [...] M.D. Signed By: 12/31/23703 DD/ 1 TD/TT: Bleaching Supervisor: Breast Imaging Recommendations Leida Hou No recommendations exist for this order. Signed by Signed Time Phone Pager Radiologist MD Rosalina 12/31/2023 07:04 Exam Information Status Exam Begun Exam Ended Final External Results Report Open External Results Report Encounter View Encounter SEGMENTAL BLOOD PRESSURE Order: [id number] Status: Final result Visible to patient: Yes (not seen) Next appt: 01/08/2024 at 09:40 AM in Podiatry (Yonatan Rosado, DPM FACFAS) 0 Result Notes Details Reading Physician Reading Date Result Priority Radiologist MD Rosalina [phone] 12/31/2023 Narrative & Impression The [address] [address] Vein Report Signed Patient: LEIDA HOU MR#: [id number] : 1965 Acct:[id number] Age/Sex: 58 / M ADM Date: 12/30/23 Loc: VC Attending Dr: YONATAN ROSADO M.D. Ordering Physician: YONATAN ROSADO M.D. Date of Service: 12/30/23 Procedure(s): VC SEGMENTAL PRESSURES Accession Number(s): [id number] cc: NOHEMI PHOENIX ; YONATAN ROSADO M.D. [place] [address] Patient Name: LEIDA HOU MRN: [id number] date: 1965 Sex: M Assigned Patient Location: Current Patient Location: Accession/Order Number: [id number] Exam Date: 12/30/2023 13:05 Report Date: 12/31/2023 [...] Dictated By: Chester Lino M.D. Signed By: 12/31/2304 Dictated By: Donta Ballard M.D. Signed By: 01/02/24 0849 DD/ TD/TT: Bleaching Supervisor: Lab Results Component Value Date HGBA1C 10.0 12/16/2023 Allergies: Allergies Allergen Reactions Atorvastatin Other Reaction(s): other Codeine Nausea Only Past Medical History: Past Medical History: Diagnosis Date Abnormal ankle brachial index (KUSH) 2020 KUSH normal, TBI is abnormal CHF (congestive heart failure) ([facility]) Cholelithiasis 2017 Diabetes mellitus ([facility]) Diverticulitis 2017 partial obstruction H/O CT scan [...] dysfunction, mild to moderate mitral regurgitaion Hypertension ([facility]) TN (myocardial infarction) ([facility]) 2010 Medications: Current Outpatient Medications: amLODIPine (Norvasc) [...] Continuous Glucose Sensor (FreeStyle Shazia 2 Sensor) [facility], Inject 1 each under the skin every [...] are palpable bilateral, no edema noted Neuro: [place] 5.07 monofilament intact, vibratory sensation intact Derm: [...] surgical shoe SUSANA Davis documented in this encounterMissouri Delta Medical [id number] History of Present illness Narrative* SUSANA Davis [...] TBI is abnormal CHF (congestive heart failure) ([facility]) Cholelithiasis 2016 Diabetes mellitus ([facility]) Diverticulitis 2017 partial obstruction H/O CT scan [...] dysfunction, mild to moderate mitral regurgitaion Hypertension ([facility]/HCC) TN (myocardial infarction) ([facility]) 2010 Medications: Current Outpatient Medications: amLODIPine (Norvasc) [...] Disp: 20 tablet, Rfl: 0 Tuberculin Syringe ([employer] Tuberculin Safety Syr) 25G X 5/8 1 ML misc, USE DIRECTED, Disp: 100 each, Rfl: 4 ROS: Constitutional: Denies fever, chills, nausea, vomiting GI: Denies abdominal pain, cramping, loose stool, gastric ulcers Musculoskeletal: Denies low back pain, knee pain, systemic arthritis Neurologic: Denies burning, tingling, transient paralysis OBJECTIVE Physical examination: Vascular: Dorsalis pedis posterior tibial pulses are palpable bilateral, no edema noted Neuro: [place] 5.07 monofilament intact, vibratory sensation intact Derm: [...] Acute osteomyelitis of ankle and foot, left ([facility]) 2. Type II diabetes mellitus with neurological manifestations ([facility]) 3. 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 PAD (peripheral artery disease) ([facility]) PLAN I educated the patient on the [...] Bactrim DS. SUSANA Davis documented in this encounterMissouri Delta Medical [id number] NoteMicrobiology PROCEDURE: Wound Culture [R1] SOURCE: Wound [...] Locations R1: This test was performed at: [facility], [address] [place] [address], [id number] , , NflyckUc HealthComment on above:Performed By: #### [id number] #### [facility] [address] [place] [address] [id number] History of Present illness Narrative* Yonatan Rosado [...] TBI is abnormal CHF (congestive heart failure) ([facility]) Cholelithiasis 2017 Diabetes mellitus ([facility]) Diverticulitis 2017 partial obstruction H/O CT scan [...] dysfunction, mild to moderate mitral regurgitaion Hypertension ([facility]) TN (myocardial infarction) ([facility]) 2010 Medications: Current Outpatient Medications: amLODIPine (Norvasc) [...] Continuous Glucose Sensor (FreeStyle Shazia 2 Sensor) [facility], Inject 1 each under the skin every [...] are palpable bilateral, no edema noted Neuro: [place] 5.07 monofilament intact, vibratory sensation intact Derm: [...] neuropathy, with long-term current use of insulin ([facility]) 2. 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, left ([facility]) PLAN I educated the patient on the [...] of offloading SUSANA Davis documented in this encounterMissouri Delta Medical [id number] Evaluation + Plan note Diagnostic Tests Pending * Wound Culture 12/21/23 [facility] [id number] History of Present illness Narrative* Yonatan Rosado DPM FACFAS - 12/21/2023 10:00 AM EDT Images from [...] TBI is abnormal CHF (congestive heart failure) ([facility]) Cholelithiasis 2017 Diabetes mellitus ([facility]) Diverticulitis 2017 partial obstruction H/O CT scan [...] dysfunction, mild to moderate mitral regurgitaion Hypertension ([facility]/HCC) TN (myocardial infarction) ([facility]) 2010 Medications: Current Outpatient Medications: amLODIPine (Norvasc) [...] Disp: 20 tablet, Rfl: 0 Tuberculin Syringe ([employer] Tuberculin Safety Syr) 25G X 5/8 1 ML misc, USE DIRECTED, Disp: 100 each, Rfl: 4 ROS: Constitutional: Denies fever, chills, nausea, vomiting GI: Denies abdominal pain, cramping, loose stool, gastric ulcers Musculoskeletal: Denies low back pain, knee pain, systemic arthritis Neurologic: Denies burning, tingling, transient paralysis OBJECTIVE Physical examination: Vascular: Dorsalis pedis posterior tibial pulses are palpable bilateral, no edema noted Neuro: [place] 5.07 monofilament intact, vibratory sensation intact Derm: [...] neuropathy, with long-term current use of insulin ([facility]) 2. Abscess of great toe of left foot 3. Cellulitis of left foot 4. 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 Contracture, ankle, left PLAN I educated [...] Supplier Guidelines. SUSANA Davis documented in this encounterMissouri Delta Medical [id number] History of Present illness Narrative* Zenia Summers, [...] a month Pt has been soaking In [email or web address] salt Current Outpatient Medications on File Prior [...] every 12 (twelve) hours. Continuous Glucose Sensor ([employer] Shazia 2 Sensor) misc Inject 1 each [...] 1 tablet in the evening. Tuberculin Syringe ([employer] Tuberculin Safety Syr) 25G X 5/8 1 [...] TBI is abnormal CHF (congestive heart failure) ([facility]/HCC) Cholelithiasis 2017 Diabetes mellitus (CMS/HCC) Diverticulitis 2017 [...] mild to moderate mitral regurgitaion Hypertension (CMS/HCC) TN (myocardial infarction) (CMS/HCC) 2010 Past Surgical History: [...] neuropathy, with long-term current use of insulin ([facility]) - POCT Glycated hemoglobin, total - Ambulatory [...] instructions. Immunodeficiency due to conditions classified elsewhere ([facility]) This is a chronic medical condition that is stable since last assessment. No changes in treatment are suggested at this time. No follow-ups on file. documented [facility] encounterBE[facility] HealthcareEvaluation note* Diagnosis Hypertension associated with type 2 diabetes mellitus (HCC) ([facility])- Primary Type 2 diabetes mellitus with diabetic autonomic neuropathy, with long-term current use of insulin ([facility]) Primary insomnia Persistent disorder of initiating or maintaining sleep Callus- Primary Corns and callosities Type 2 diabetes mellitus with diabetic autonomic neuropathy, with long-term current use of insulin ([facility]) Toe infection Diabetic polyneuropathy associated with type 2 diabetes mellitus ([facility]) Thrombocytopenia, unspecified ([facility]) Thrombocytopenia, unspecified Type 2 diabetes mellitus with hyperglycemia ([facility]) Immunodeficiency due to conditions classified elsewhere ([facility]) documented in this encounter [facility] HealthcareEvaluation note* Diagnosis Hypertension associated with type 2 diabetes mellitus (HCC) ([facility])- Primary Type 2 diabetes mellitus with diabetic autonomic neuropathy, with long-term current use of insulin ([facility]) Primary insomnia Persistent disorder of initiating or maintaining sleep Type 2 diabetes mellitus with diabetic autonomic neuropathy, with long-term current use of insulin ([facility])- Primary Abscess of great toe of left foot Cellulitis of left foot 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, left ([facility]) Contracture, ankle, left documented in this encounter [facility] HealthcareEvaluation note* Diagnosis Hypertension associated with type 2 diabetes mellitus (HCC) ([facility])- Primary Type 2 diabetes mellitus with diabetic autonomic neuropathy, with long-term current use of insulin ([facility]) Primary insomnia Persistent disorder of initiating or maintaining sleep Type 2 diabetes mellitus with diabetic autonomic neuropathy, with long-term current use of insulin ([facility])- Primary 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, left ([facility]) documented in this encounter [facility] HealthcareEvaluation note* Diagnosis Hypertension associated with type 2 diabetes mellitus (HCC) ([facility])- Primary Type 2 diabetes mellitus with diabetic autonomic neuropathy, with long-term current use of insulin ([facility]) Primary insomnia Persistent disorder of initiating or maintaining sleep Acute osteomyelitis of ankle and foot, left (CMS/HCC)- Primary Type II diabetes mellitus with neurological manifestations ([facility]/HCC) Type II or unspecified type diabetes mellitus with neurological manifestations, not stated as uncontrolled 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, left (CMS/HCC) PAD (peripheral artery disease) ([facility]/HCC) Unspecified peripheral vascular disease documented in this encounter [facility] HealthcareEvaluation noteNo assessment information availableMercy Health Will[facility] Work Phone: Evaluation note* Diagnosis Hypertension associated with type 2 diabetes mellitus (HCC) ([facility]/HCC)- Primary Type 2 diabetes mellitus with diabetic autonomic neuropathy, with long-term current use of insulin ([facility]/HCC) Primary insomnia Persistent disorder of initiating or maintaining sleep PAD (peripheral artery disease) ([facility]/HCC)- Primary Unspecified peripheral vascular disease 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, left ([facility]/HCC) Gangrene ([facility]/HCC) Gangrene documented in this encounter [facility] HealthcareEvaluation note* Diagnosis Hypertension associated with type 2 diabetes mellitus (HCC) ([facility]/HCC)- Primary Type 2 diabetes mellitus with diabetic autonomic neuropathy, with long-term current use of insulin ([facility]/HCC) Primary insomnia Persistent disorder of initiating or maintaining sleep Gangrene ([facility]/HCC)- Primary Gangrene PAD (peripheral artery disease) ([facility]/HCC) Unspecified peripheral vascular disease documented in this encounter [facility] HealthcareEvaluation note* Diagnosis Hypertension associated with type 2 diabetes mellitus (HCC) ([facility]/HCC)- Primary Type 2 diabetes mellitus with diabetic autonomic neuropathy, with long-term current use of insulin ([facility]/HCC) Primary insomnia Persistent disorder of initiating or maintaining sleep Gangrene ([facility]/HCC)- Primary Gangrene PAD (peripheral artery disease) ([facility]/HCC) Unspecified peripheral vascular disease documented in this encounter [facility] HealthcareEvaluation note* Diagnosis Hypertension associated with type 2 diabetes mellitus (HCC) ([facility]/HCC)- Primary Type 2 diabetes mellitus with diabetic autonomic neuropathy, with long-term current use of insulin ([facility]/HCC) Primary insomnia Persistent disorder of initiating or maintaining sleep PAD (peripheral artery disease) ([facility]/HCC)- Primary Unspecified peripheral vascular disease Gangrene ([facility]/HCC) Gangrene documented in this encounter [facility] HealthcareEvaluation note* Diagnosis Hypertension associated with type 2 diabetes mellitus (HCC) ([facility]/HCC)- Primary Type 2 diabetes mellitus with diabetic autonomic neuropathy, with long-term current use of insulin ([facility]) Primary insomnia Persistent disorder of initiating or maintaining sleep PAD (peripheral artery disease) ([facility])- Primary Unspecified peripheral vascular disease Gangrene ([facility]) Gangrene documented in this encounter [facility]Evaluation [facility]* Diagnosis Hypertension associated with type 2 diabetes mellitus (HCC) ([facility])- Primary Type 2 diabetes mellitus with diabetic autonomic neuropathy, with long-term current use of insulin ([facility]) Primary insomnia Persistent disorder of initiating or maintaining sleep Type II diabetes mellitus with neurological manifestations ([facility])- Primary Type II or unspecified type diabetes mellitus with neurological manifestations, not stated as uncontrolled PAD (peripheral artery disease) ([facility]) Unspecified peripheral vascular disease Gangrene ([facility]) Gangrene 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, left ([facility]) documented in this encounter [facility] HealthcareEvaluation note* Diagnosis Hypertension associated with type 2 diabetes mellitus (HCC) ([facility])- Primary Type 2 diabetes mellitus with diabetic autonomic neuropathy, with long-term current use of insulin ([facility]) Primary insomnia Persistent disorder of initiating or maintaining sleep Type II diabetes mellitus with neurological manifestations ([facility])- Primary Type II or unspecified type diabetes mellitus with neurological manifestations, not stated as uncontrolled PAD (peripheral artery disease) ([facility]) Unspecified peripheral vascular disease Gangrene ([facility]) Gangrene Acute osteomyelitis of ankle and foot, left ([facility]) documented in this encounter [facility]Evaluation note* Diagnosis Hypertension associated with type 2 diabetes mellitus (HCC) ([facility])- Primary Type 2 diabetes mellitus with diabetic autonomic neuropathy, with long-term current use of insulin ([facility]) Primary insomnia Persistent disorder of initiating or maintaining sleep Type II diabetes mellitus with neurological manifestations ([facility])- Primary Type II or unspecified type diabetes mellitus with neurological manifestations, not stated as uncontrolled PAD (peripheral artery disease) ([facility]) Unspecified peripheral vascular disease Gangrene ([facility]) Gangrene Acute osteomyelitis of ankle and foot, left ([facility]) documented in this encounter [facility]Evaluation note* Diagnosis Hypertension associated with type 2 diabetes mellitus (HCC) ([facility])- Primary Type 2 diabetes mellitus with diabetic autonomic neuropathy, with long-term current use of insulin ([facility]) Primary insomnia Persistent disorder of initiating or maintaining sleep PAD (peripheral artery disease) ([facility])- Primary Unspecified peripheral vascular disease Gangrene ([facility]) Gangrene Type II diabetes mellitus with neurological manifestations ([facility]) Type II or unspecified type diabetes mellitus with neurological manifestations, not stated as uncontrolled Chronic ulcer of great toe of left foot with fat layer exposed ([facility]) documented in this encounter [facility] HealthcareEvaluation note* Diagnosis Hypertension associated with type 2 diabetes mellitus (HCC) ([facility])- Primary Type 2 diabetes mellitus with diabetic autonomic neuropathy, with long-term current use of insulin ([facility]) Primary insomnia Persistent disorder of initiating or maintaining sleep PAD (peripheral artery disease) ([facility])- Primary Unspecified peripheral vascular disease Gangrene ([facility]) Gangrene documented in this encounter [facility]* Diagnosis Hypertension associated with type 2 diabetes mellitus (HCC) ([facility])- Primary Type 2 diabetes mellitus with diabetic autonomic neuropathy, with long-term current use of insulin ([facility]) Primary insomnia Persistent disorder of initiating or maintaining sleep Type II diabetes mellitus with neurological manifestations ([facility])- Primary Type II or unspecified type diabetes mellitus with neurological manifestations, not stated as uncontrolled Amputation of left great toe ([facility]) Gastrocnemius equinus of left lower extremity Gastrocnemius equinus of right lower extremity documented in this encounter [facility]Evaluation [facility]* Diagnosis Hypertension associated with type 2 diabetes mellitus (HCC) ([facility])- Primary Type 2 diabetes mellitus with diabetic autonomic neuropathy, with long-term current use of insulin ([facility]) Primary insomnia Persistent disorder of initiating or maintaining sleep Type II diabetes mellitus with neurological manifestations ([facility])- Primary Type II or unspecified type diabetes mellitus with neurological manifestations, not stated as uncontrolled Amputation of left great toe ([facility]) documented in this encounter [facility]Evaluation [facility]* Diagnosis Hypertension associated with type 2 diabetes mellitus (HCC) ([facility])- Primary Type 2 diabetes mellitus with diabetic autonomic neuropathy, with long-term current use of insulin ([facility]) Primary insomnia Persistent disorder of initiating or maintaining sleep Acute bronchitis, unspecified organism- Primary Acute cough Hypertensive heart disease with heart failure ([facility]) Unspecified hypertensive heart disease with heart failure Gangrene, not elsewhere classified ([facility]) Type 2 diabetes mellitus with foot ulcer (CODE) ([facility]) Non-pressure chronic ulcer 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 ([facility]) Ventricular tachycardia, unspecified ([facility]) Unspecified systolic (congestive) heart failure ([facility]) Heart failure, unspecified ([facility]) Heart failure, unspecified Chronic systolic (congestive) heart failure ([facility]) documented in this encounter [facility]Evaluation note* Diagnosis Hypertension associated with type 2 diabetes mellitus (HCC) ([facility])- Primary Type 2 diabetes mellitus with diabetic autonomic neuropathy, with long-term current use of insulin ([facility]) Primary insomnia Persistent disorder of initiating or maintaining sleep Type 2 diabetes mellitus with diabetic autonomic neuropathy, with long-term current use of insulin ([facility])- Primary Type 2 diabetes mellitus with foot ulcer (CODE) ([facility]) Primary insomnia Persistent disorder of initiating or maintaining sleep documented in this encounter [facility] HealthcareEvaluation note* Diagnosis Hypertension associated with type 2 diabetes mellitus ([facility])- Primary Type 2 diabetes mellitus with diabetic autonomic neuropathy, with long-term current use of insulin ([facility]) Primary insomnia Persistent disorder of initiating or maintaining sleep Type 2 diabetes mellitus with diabetic autonomic neuropathy, with long-term current use of insulin ([facility])- Primary Type 2 diabetes mellitus with foot ulcer (CODE) ([facility]) Primary insomnia Persistent disorder of initiating or maintaining sleep Muscle spasm of back- Primary Intercostal pain documented in this encounter [facility] HealthcareEvaluation note* Diagnosis Hypertension associated with type 2 diabetes mellitus (HCC)- Primary Type 2 diabetes mellitus with diabetic autonomic neuropathy, with long-term current use of insulin ([facility]) Primary insomnia Persistent disorder of initiating or maintaining sleep Type 2 diabetes mellitus with diabetic autonomic neuropathy, with long-term current use of insulin ([facility])- Primary Type 2 diabetes mellitus with foot ulcer (CODE) ([facility]) Primary insomnia Persistent disorder of initiating or maintaining sleep Acute thoracic back pain, unspecified back pain laterality- Primary Muscle spasm of back documented in this encounter [facility] HealthcareHospital course Narrative No data available for this section [facility] Discharge instructions No data available for this section [facility] Discharge instructions Additional Instructions [...] for [address] Fields: (office) [phone] -If excessive bleeding should occur from the [...] XR, Metaglip, Metformin, PrandiMet, Riomet.] FOLLOW UP/[facility] IN[facility]CTIONS[facility] Work Phone: Progress note No data available for this section [facility] Summary Purpose Family History No [...] Visit Admit Date Gangrene associated with diabetes [facility] January 06, 2024 11:25am Additional Source Comments (unrecognized sect ion and content) No Status Records FoundNo Status Records FoundNo Status Records FoundNo Status Records FoundNo Status Records FoundNo Status Records FoundNo Status Records FoundNo Status Records FoundNo Status Records Found INFORMATION SOURCE (unrecogn ized section and content) DATE CREATED AUTHOR 08/17/2017 [facility] DATE CREATED AUTHOR AUTHOR'S ORGANIZ ATION 08/17/2017 [facility] DATE CREATED AUTHOR AUTHOR'S ORGANIZ ATION 10/23/2020 [facility] DATE CREATED AUTHOR AUTHOR'S ORGANIZ ATION 10/21/2021 [facility] DATE CREATED AUTHOR AUTHOR'S ORGANIZ ATION 12/22/2023 [facility] DATE CREATED AUTHOR AUTHOR'S ORGANIZ ATION 01/24/2024 [facility] DATE CREATED AUTHOR AUTHOR'S ORGANIZ ATION 01/28/2024 [facility] DATE CREATED AUTHOR AUTHOR'S ORGANIZ ATION 02/02/2024 [facility] DATE CREATED AUTHOR AUTHOR'S ORGANIZ ATION 11/10/2024 [facility] DATE CREATED AUTHOR AUTHOR'S ORGANIZ ATION 12/29/2024 [facility] Care Teams (unrecognized sec tion and content) Team MemberRelationshipSpecialtyStart DateEnd Date Nohemi Phoenix MD [address] [address] PCP - [place] [facility]06/23/21 Nohemi Phoenix MD [address] [address] PCP - GeneralFamily Medicine09/22/22Team MemberRelationshipSpecialtyStart DateEnd Date Nohmei Phoenix MD [address] [address] PCP - [place] [employer]06/23/21 Nohemi Phoenix MD [address] [place] [address] PCP - GeneralFamily Medicine09/22/22Team MemberRelationshipSpecialtyStart DateEnd Date Nohemi Phoenix MD [address] [place] [address] PCP - [place] [employer]06/23/21 Nohemi Phoenix MD [address] [facility] [address] [place] [address] PCP - Generalmily Medicine09/22/22Team MemberRelationshipSpecialtyStart DateEnd Date Nohemi Phoenix MD [address] [facility] [address] [place] [address] PCP - [place] [employer]06/23/21 Nohemi Phoenix MD [address] [facility] [address] [place] [address] PCP - GeneralFamily Medicine09/22/22Team MemberRelationshipSpecialtyStart DateEnd Date Nohemi Phoenix MD [address] [facility] [address] [place] [address] PCP - [place] [employer]06/23/21 Nohemi Phoenix MD [address] [place] [address] PCP - GeneralFamily Medicine09/22/22Team MemberRelationshipSpecialtyStart DateEnd Date Nohemi Phoenix MD [address] [place] [address] PCP - [place] [employer]06/23/21 Nohemi Phoenix MD [address] [facility] [address] [place] [address] [facility]/22/22Team MemberRelationshipSpecialtyStart DateEnd Date Nohemi Phoenix MD [address] [facility] [address] [place] [address] PCP - [place] [employer]06/23/21 Nohemi Phoenix MD [address] [facility] [address] [place] [address] [facility]/22/22Team MemberRelationshipSpecialtyStart DateEnd Date Nohemi Phoenix MD [address] [facility] [address] [place] [address] PCP - [place] [employer]06/23/21 Nohemi Phoenix MD [address] [facility] [address] [place] [address] PCP - [facility] Medicine09/22/22 Team Status: Active Member Role Status Dates Nohemi Phoenix MD Primary Care Provider Active Team Status: Inactive Member Role Status Dates Esthela Fields MD Attending Provider Active Start: January 06, 2024 End: January 05Ivory [facility] Care ProviderActiveStart: January 06, 2024 End: January 06, 2024 Team Status: Inactive Member Role Status Dates Nohemi Phoenix MD Primary Care Provider Active S tart: January 07, 2024 End: January 07, 2024Esthela Fields MDAttcounts include [facility] ProviderActiveStart: January 07, 2024 End: January 07, 2024 Team Status: Active Member Role Status Dates Nohemi Phoenix MD Primary Care Provider Active S tart: January 07, 2024 Esthela Fields , MDAttending Provider, Other ProviderActiveStart: January 07, 2024 Team MemberRelationshipSpecialtyStart DateEnd Nohemi Phoenix MD [address] [place] [address] PCP - [place] [employer]06/23/21 Nohemi Phoenix MD [address] [facility] [address] [place] [address] [facility]09/22/22Team MemberRelationshipSpecialtyStart DateEnd Nohemi Phoenix MD [address] [place] [address] PCP - [place] [employer]06/23/21 Nohemi Phoenix MD [address] [place] [address] [facility]09/22/22Team MemberRelationshipSpecialtyStart DateEnd Nohemi Phoenix MD [address] [place] [address] PCP - [place] [employer]06/23/21 Nohemi Phoenix MD [address] [place] [address] [facility]09/22/22Team MemberRelationshipSpecialtyStart DateEnd Date Nohemi Phoenix MD [address] [place] [address] PCP - [place] [employer]06/23/21 Nohemi Phoenix MD [address] [place] [address] [facility] - [facility]09/22/22Team MemberRelationshipSpecialtyStart DateEnd Date Nohemi Phoenix MD [address] [place] [address] PCP - [place] [employer]06/23/21 Nohemi Phoenix MD [address] [place] [address] PCP - [facility] Medicine09/22/22Te MemberRelationshipSpecialtyStart DateEnd Date Nohemi Phoenix MD [address] [place] [address] PCP - [place] [employer]06/23/21 Nohemi Phoenix MD [address] [place] [address] PCP - [facility] Medicine09/22/22Te MemberRelationshipSpecialtyStart DateEnd Date Nohemi Phoenix MD [address] [place] [address] PCP - [place] [employer]06/23/21 Nohemi Phoenix MD [address] [place] [address] PCP - [facility] Medicine09/22/22Te MemberRelationshipSpecialtyStart DateEnd Date Nohemi Phoenix MD [address] [place] [address] PCP - [facility] Medicine09/22/22Team MemberRelationshipSpecialtyStart DateEnd Date Nohemi Phoenix MD [address] [place] [address] PCP - [facility] Medicine09/22/22 Nohemi Phoenix MD [address] [place] [address] PCP - [place] [employer]06/23/24Team MemberRelationshipSpecialtyStart DateEnd Date Nohemi Phoenix MD [address] [place] [address] PCP - [facility]09/22/22 Nohemi Phoenix MD [address] [place] [address] PCP - [place] [employer]06/23/24Team MemberRelationshipSpecialtyStart DateEnd Date Nohemi Phoenix MD [address] [place] [address] PCP - [facility]09/22/22 Nohemi Phoenix MD [address] [place] [address] PCP - [place] [employer]06/23/24Team MemberRelationshipSpecialtyStart DateEnd Date Nohemi Phoenix MD [address] [place] [address] PCP - [facility] Medicine09/22/22 Nohemi Phoenix MD [address] [place] [address] PCP - [place] [employer]06/23/24Team MemberRelationshipSpecialtyStart DateEnd Date Nohemi Phoenix MD [address] [facility] [address] [place] [address] [facility]09/22/22 Nohemi Phoenix MD [address] [facility] [address] [place] [address] PCP - [place] [employer]06/23/24Team MemberRelationshipSpecialtyStart DateEnd Date Nohemi Phoenix MD [address] [facility] [address] [place] [address] PCP - [place] [employer]06/23/2210 Nohemi Phoenix MD [address] [facility] [address] [place] [address] PCP - [facility]09/22/22 Nohemi Phoenix MD [address] [facility] [address] [place] [address] PCP - [place] [employer] Ceferino Kidd MD [address] [facility] [address] [place] [address] PCP - [place] [employer]10/24/24 Reason for Visit (unrecogniz ed section and content) ReasonCommentsinfected toeDiabetesReasonCommentsFoot Wound CheckLT grt toe infection with wound, swollenSpecialtyDiagnoses / ProceduresReferred By Contact Referred To ContactPodiatry Diagnoses Type 2 diabetes mellitus with diabetic autonomic neuropathy, with long-term current use of insulin ([facility]) Callus Toe infection Procedures DE OFFICE/OUTPATIENT NEW HIGH MDM 60 MINUTES Zenia Summers NP [address] [facility] [address] [place] [address] Phone: tel: fax: Milton Gallagher, DPRicardo [address] [facility] [address] [place] [address] Phone: tel: fax: Referral IDStatusReasonStart DateExpiration DateVisits RequestedVisits [id number] Specialty Services Required [id number] Wound CheckF/U LT grt toe ulcerReason CommentsFoot Wound CheckF/U LT foot grt toe woundReasonCommentsFoot Wound Check F/U LT grt toe ulcerFollow-upF/U CT / PVR LT footReasonCommentsFoot Wound Check F/U LT grt toe ulcerReasonCommentsFoot Wound CheckLT grt toe woundReasonComments Foot/ankle Post-opWK 1 post opReasonCommentsFoot/ankle Post-opWK 2 post opReason CommentsFoot/ankle Post-opWK 3 post op - Sutures were removed this morning and now has a small openingReasonCommentsFoot/ankle Post-opPost op - open siteReason CommentsFoot/ankle Post-opWK 4 post opFoot OrthoticsP/U OrthoticsReasonComments Foot/ankle Post-opWeek 6 post opFoot OrthoticsFu orthoticsReasonCommentsDiabetes A1c today is 11.0ReasonCommentsPainSpecialtyDiagnoses / ProceduresReferred By ContactReferred To ContactOrthopaedic Surgery Diagnoses Muscle spasm of back Acute pain of right shoulder Zenia Summers, NUTRITION COORDINATOR [address] [facility] [address] [place] [address] Phone: tel: fax: Jr. Sheldon Bonilla, DO [address] [place] [address] Phone: tel: fax: Referral IDStatusReasonStart DateExpiration DateVisits RequestedVisits [id number] Specialty Services Required [id number] Goals (unrecognized section and content) Goals may [...] BE BASED ON THE PRIMARY CLINICAL RECORDS. [facility]. provides no warranty or guarantee of the accuracy or completeness of information in this document.
== END 2025-02-22 15:45 | disposition home or self-care (01) ==
LOC: CARD 15:44
PROVIDERS: PCP Family Medicine; Visit Provider Internal Medicine Interventional Cardiology
DX: I50.22 Chronic systolic (congestive) heart failure (principal)
CPT/HCPCS: 93306; 93356